=== PATIENT | female | born 2000 | race Caucasian/White ===

== ENCOUNTER 2019-03-01 10:49 | Observation (INO) | payer OTHER, SELFPAY ==
[2019-03-01] VITALS (10 sets, daily range): BP systolic 102–139; BP diastolic 62–86; PULSE 72–99; RESP 14–18; TEMP 36.4–37.6; O2SAT 97–100; BMI 24.9
--- NOTE | 2019-03-01 11:28 | CT_ITS ---
STUDY: CT ABDOMEN AND PELVIS WITH CONTRAST REASON FOR EXAM: Female, 18 years old. Left lower quadrant pain. RADIATION DOSAGE (If Supplied By Facility): CTDIvol = ( 12.18 ) mGy, DLP = ( 585.40 ) mGycm TECHNIQUE: Transaxial images were obtained from the dome of the diaphragm to the symphysis pubis without oral contrast. 100ml IV/Oral Isovue 300 was administered. Sagittal and coronal images were reconstructed. Individualized dose optimization techniques were used for this CT. COMPARISON: None. FINDINGS: The visualized lung bases are unremarkable. The visualized portions of the heart are within normal limits. Normal liver. Normal gallbladder and extrahepatic biliary system. Normal spleen. Normal pancreas. Normal bilateral adrenal glands. Normal right kidney. Normal left kidney. Normal visualized stomach. Normal small intestine. Normal colon. There is mild dilatation of the appendix as seen on coronal series 601 image 66 measuring approximately 8-9 mm with small 1 to 2 mm appendicolith as seen on coronal series 601 image 69 and sagittal series 602 image 58-60. No significant surrounding inflammatory stranding is present somewhat limited along the proximal course. Normal abdominal aorta. Normal inferior vena cava. Normal retroperitoneum. Normal urinary bladder. Normal visualized uterus. Normal abdominal wall. Normal osseous structures. CT/Abdomen/Pelvis WITH Contrast IMPRESSION: 1. There is noted dilatation of the appendix with small 1 to 2 mm nephrolith without significant surrounding inflammatory stranding with findings concerning for early appendicitis in the appropriate clinical setting. No large fluid collection or abscess. Otherwise no evidence of additional acute intra-abdominal process. Recommend general surgery consultation for further assessment and management. N.B. : The above information has been verbally conveyed by Joseph Thompson DO to Bambi Gutierrez MD, on 03/01/2019 13:27:35 (ET). Electronically Signed: Joseph Tohmpson DO at 13:28 EDT , Service support ,
[2019-03-01 11:48] LABS: Absolute Lymphocyte Count 0.74 X10^3/ul (0.83-4.51); Absolute Neutrophil Count 5.9 X10^3/uL (2.0-7.7); Basophil# 0.01 X10^3/uL; Basophil% 0.1 % (0-1); Eosinophil# 0.03 X10^3/uL; Eosinophils% 0.4 % (0-5); Hematocrit 40.4 % (37-47); Hemoglobin 13.7 g/dl (12.0-15.0); Lymphocyte # 0.74 X10^3/ul (4.0); Lymphocyte % 10.2 % (19-41); Mean Corp Hgb Conc 33.9 g/gl (32-36); Mean Corpuscular Hgb 29.8 pg (27.0-32.0); Monocyte% 8.3 % (0-10); Neutrophil # 5.85 X10^3/uL (2.7-7.7); Neutrophil % 80.9 % (47-70); Platelet Count 192 K/mm3 (150-450); RBC Distribution Width CV 13.4 % (11.6-14.6); RBC Distribution Width SD 43.2 fl (35.1-43.9); Red Blood Count 4.59 M/mm3 (4.2-5.4); White Blood Count 7.2 K/mm3 (4.4-11.0)
[2019-03-01 11:49] LABS: POSITIVE COUNT NO; POSITIVE DIFFERENTIAL NO; POSITIVE MORPHOLOGY NO
[2019-03-01 12:00] LABS: Anion Gap 10 (5-15); BUN 8 mg/dL (7-18); BUN/Creat Ratio 10.4 RATIO (10-20); Calcium,Total 8.6 mg/dL (8.5-10.1); Chloride 107 mmol/L (98-107); Creatinine, Serum 0.77 mg/dL (0.55-1.02); EST Glomerular Filtration Rate 100 mL/min (>60); Est Glom Filt Rate - Afr Amer 121 mL/min (>60); Estimated Creatinine Clearance 87.94 ml/min; Glucose 94 mg/dL (74-106); Internal QC Validated? YES +Cl - CLEAR BKGD; Potassium 3.6 mmol/L (3.5-5.1); Pregnancy, Serum, hCG Quali. NEGATIVE Negative; Sodium Level 142 mmol/L (136-145)
--- NOTE | 2019-03-01 12:15 | ED.RN ---
called pharmacy for toradol
[2019-03-01] MEDS: Ondansetron 4 MG/2 ML Vial IV ×2 (12:23→16:17)
[2019-03-01] MEDS: 0.9% Normal Saline 1,000 ML 150 ML IV (12:23)
--- NOTE | 2019-03-01 12:24 | ED.RN ---
urine obtained. pt on period
[2019-03-01 12:35] LABS: Mucous, Urine 0 SEEN /hpf (<or=2+); Squamous Epithelial Cells - UA 0 SEEN /hpf (5-10)
[2019-03-01 12:40] LABS: Color, Urine Amber (Yellow); Glucose, Dipstick Normal (Normal); Ketone-Dipstick 5 mg/dl (Negative); Leukocyte Esterase-Dipstick 100 /ul (Negative); Nitrite-Dipstick Negative (Negative); Occult Blood-Urine 250 /ul (Negative); Protein-Dipstick 30 mg/dl (Negative); Specific Gravity, Urine 1.005 (1.002-1.030); Urine Bilirubin Dipstick Negative (Negative); Urine Clarity Sl. Cloudy (Clear); Urine Urobilinogen Normal (Normal)
[2019-03-01 12:50] LABS: Bacteria 1+ /hpf (None Seen); Red Blood Cells-Urine 25-50 SEEN /hpf (0-5); White Blood Cells 0-5 SEEN /hpf (0-5)
[2019-03-01] MEDS: Ketorolac 15 MG/ML Vial IV (12:51)
--- NOTE | 2019-03-01 15:43 | PCM.HP.STD ---
Problem List (1) Abdominal pain Status: Acute History of Present Illness Date of Admission: 03/01/19 Chief Complaint: Left lower quadrant pain The patient is a 18 year old F who presents with fever, left lower quadrant abdominal pain, diarrhea and blood per rectum. Patient states her symptoms have been ongoing for approximately 1 year. Patient states she has abdominal bloating after eating any type of food. She notes urgency with stool and following a bowel movement she notes relief of the abdominal bloating. Patient notes her abdomen gurgles a lot. She notes she presented to the ED today due to having a fever last night, diarrhea with blood when she wiped after a bowel movement. However she notes she started her menstrual cycle yesterday. Patient also noted feeling nauseated and dizzy yesterday. Patient notes she had left lower quadrant pain which was new for her. She notes taking Advil which helped slightly. She also has been taking garlic and charcoal to assist with her GI symptoms. Patient notes she has been working closely with her family doctor to assist with her GI symptoms. Patient has tried Prilosec which did not help with her symptoms. She is no longer taking this medication. Patient is scheduled to see Dr. Hill on March 16. Patient denies previous surgeries. CT scan of the abdomen/pelvis which demonstrated dilatation of the appendix with small 1 to 2 mm nephrolith without significant surrounding inflammatory stranding with findings concerning for early appendicitis in the appropriate clinical setting. No large fluid collection or abscess. Otherwise no evidence of additional acute intra-abdominal process. Recommend general surgery consultation for further assessment and management. 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 Denies: Chills, Weight Change HEENT: Denies: Head Aches, Sinus Congestion, Sinus Drainage Cardiovascular: Denies: Chest Pain, Palpitations Respiratory: Denies: Cough, Shortness of breath at rest, Sputum production Gastrointestinal: Reports: Abdominal Pain, Diarrhea, Nausea Genitourinary: Reports: Frequency Musculoskeletal: Denies: Joint Pain, Joint Tenderness Skin: Denies: Rash, Wounds Neurological: Denies: Numbness, Tingling, Focal weakness Psychiatric: Denies: Anxiety, Depression, Homicidal Ideations, Suicidal Ideations Hematologic/ Lymphatic: Denies: Easy Bruising, Easy Bleeding VTE Information - Inpt Only VTE Present on Admission: No Patient Problems: Active and Suspected Problems Abdominal pain (Acute) - Physical Exam General: Alert, Oriented x3, Cooperative HEENT: Atraumatic, PERRLA, EOMI, Normocephalic Neck: Supple, No JVD, Negative Carotid Bruits Lungs: Clear to auscultation, Normal air movement Cardiovascular: Regular rate, No murmurs Abdomen: Bowel Sounds Present, Soft, Non Tender, Non-Distended Extremities: No edema, Capillary Refill Less than 3 Seconds Skin: No rashes, No breakdown Musculoskeletal: No Tenderness to Palpation of Joints or Extremities Neurological: Neuro grossly intact Psych/Mental Status: Normal Affect, Appropriate Vital Signs Temp Pulse Resp BP Pulse Ox 99.7 F H 89 16 117/74 99 03/01/19 10:50 03/01/19 14:54 03/01/19 14:54 03/01/19 14:54 03/01/19 14:54 Weight: 132 lb Body Mass Index (BMI) 24.9 Laboratory Tests Past 24 Hrs 03/01/19 03/01/19 03/01/19 11:41 11:41 11:41 WBC 7.2 RBC 4.59 Hgb 13.7 Hct 40.4 MCV 88.0 MCH 29.8 MCHC 33.9 RDW 13.4 RDW Differential 43.2 Plt Count 192 MPV 10.0 Immature Gran % (Auto) 0.100 Neut % (Auto) 80.9 H Lymph % (Auto) 10.2 L [place] % (Auto) 8.3 Eos % (Auto) 0.4 Baso % (Auto) 0.1 Absolute Neuts (auto) 5.9 Absolute Lymphs (auto) 0.74 L Total Counted Not Reportable Sodium 142 Potassium 3.6 Chloride 107 Carbon Dioxide 25.0 Anion Gap 10 BUN 8 Creatinine 0.77 Estim Creat Clear Calc 87.94 Est GFR (MDRD) Af Amer 121 Est GFR (MDRD) Non-Af 100 BUN/Creatinine Ratio 10.4 Glucose 94 Calcium 8.6 Serum , Qual NEGATIVE Urine Color Urine Clarity Urine pH Ur Specific [place] Urine Protein Urine Glucose (UA) Urine Ketones Urine Occult Blood Urine Nitrite Urine Bilirubin Urine Urobilinogen Ur Leukocyte Esterase Urine RBC Urine WBC Ur Squamous Epith Cells Urine Bacteria Urine Mucus 03/01/19 12:05 WBC RBC Hgb Hct MCV MCH MCHC RDW RDW Differential Plt Count MPV Immature Gran % (Auto) Neut % (Auto) Lymph % (Auto) [place] % (Auto) Eos % (Auto) Baso % (Auto) Absolute Neuts (auto) Absolute Lymphs (auto) Total Counted Sodium Potassium Chloride Carbon Dioxide Anion Gap BUN Creatinine Estim Creat Clear Calc Est GFR (MDRD) Af Amer Est GFR (MDRD) Non-Af BUN/Creatinine Ratio Glucose Calcium Serum , Qual Urine Color Geeta Urine Clarity Sl. Cloudy Urine pH 7.0 Ur Specific [place] 1.005 Urine Protein 30 H Urine Glucose (UA) Normal Urine Ketones 5 H Urine Occult Blood 250 H Urine Nitrite Negative Urine Bilirubin Negative Urine Urobilinogen Normal Ur Leukocyte Esterase 100 H Urine RBC 25-50 SEEN Urine WBC 0-5 SEEN Ur Squamous Epith Cells 0 SEEN Urine Bacteria 1+ Urine Mucus 0 SEEN Assessment/Plan All Active Problems Abdominal pain (Acute) I am seeing this patient in conjunction with Dr. Sepulveda. Impression: Left lower quadrant abdominal pain, diarrhea, low grade fever, nausea. Plan: Dr. Sepulveda will independently evaluate this patient. Dr. Sepulveda has independently evaluated this patient. He will plan to perform a laparoscopic appendectomy. Dr. Sepulveda explained the procedure details, risks and benefits to the patient. Thank you for allowing us to participate in this patient's care. Code Visit Office Visits / Consults: [id number] IP Consult L3
--- NOTE | 2019-03-01 15:50 | ED.VISSUMM ---
- ER Visit Summary Date of Service: 03/01/19 Chief Complaint: Abdominal pain History of Present Illness: The patient is a 18 F with intermittent abdominal pain for quite some time. She states the pain recurred again last evening. She reports subjective fever last night and had diarrhea with some blood. She believes the blood may be secondary to her starting her period as opposed to blood mixed with her stool. Physical Examination: Vital signs remarkable only for temperature 99.7. Patient sitting upright in bed no acute distress. She is nontoxic-appearing. Head and neck examination normal. Heart is regular rate and rhythm. Lung sounds clear. Abdomen is soft with mild left lower quadrant tenderness. No guarding or rebound. Test Results: CBC reveals normal white count with slight left shift. Chemistry studies normal. Urinalysis shows blood no sign of acute infection. Patency test negative. CT the abdomen and pelvis with contrast reveals dilatation of the appendix with small appendicolith but no significant surrounding inflammatory stranding. This is concerning for early appendicitis. Emergency Department Course and Treatment: Patient was initially given Toradol, Zofran, and IV fluids. Test results were discussed with patient and mother at bedside. Patient was discussed with Dr. Sepulveda who presented to the emergency room to evaluate the patient. He will take her for an appendectomy. Patient be given Zosyn. Treatment Plan: [] Disposition: Admit Impression: Appendicitis This note was generated with [employer] dictation software. It may contain incorrect words, spelling, and punctuation that were not noted in review of the chart prior to signing
[2019-03-01] MEDS: Morphine 2 MG/ML Syringe 4 MG IV (16:18)
--- NOTE | 2019-03-01 17:55 | PCM.OPRPT ---
Problem List (1) Acute appendicitis Status: Acute Qualifiers: Acute appendicitis type: with localized peritonitis Appendicitis gangrene presence: without gangrene Appendicitis perforation presence: without perforation Appendicitis abscess presence: without abscess Qualified Code(s): K35.30 - Acute appendicitis with localized peritonitis, without perforation or gangrene Report of Operation Date of Procedure: 03/01/19 Pre-Operative Diagnosis: Acute appendicitis Post-Operative Diagnosis: Same Surgery/Procedure Performed:: Laparoscopic appendectomy Type of Anesthesia:: General Anesthesiologist: Teri Jha Specimen's removed: Appendix Estimated Blood Loss (mL): <25cc Description of Procedure: Patient was brought into the operating room. Placed in the supine position. Under excellent general anesthetic the abdomen was sterilely prepped and draped in usual fashion. Local was injected infraumbilically. Curvilinear incision was made. Dissection was carried down to the fascia. The fascia was grasped with a Mary. The varies needle was placed inside the abdomen and the abdomen was insufflated to 15 torr. A 10/12 trocar was placed without difficulty. Patient was placed in the head down rotated to the left suprapubic #5 trocar was placed laterally a #5 trocar was placed patient was noted to have acute appendicitis. I took the mesoappendix down with the Enseal device and then transected the base the appendix with a 45 linear cutter. Placed a specimen specimen bag and delivered through the umbilical port without difficulty. Irrigated out the pelvis no pus was identified. It did look however that she had a ruptured ovarian cyst the ovaries themselves looked viable and irrigated out a small amount of blood.. I then ran the small bowel no Meckel's diverticulum was identified. I inspected the abdominal wall no signs of hernias were identified. I inspected the colon to look normal without signs of diverticulitis or inflammation. Inspected the suture line good hemostasis was achieved. Trochars were removed under direct visualization good hemostasis was noted. Fascia was closed with a figure stitch of 0 Vicryl. Skin incisions were closed with septic with stitches of 4-0 Monocryl. Steri-Strips were applied sterile dressings were applied and the patient tolerated the procedure well. - Admit VTE Documentation VTE Present on Admission: No VTE Mechan Device Prophylaxis: SCD's VTE Pharm Prophylaxis ordered?: No Reason prophylaxis not ordered:: Treatment Not Indicated
--- NOTE | 2019-03-01 18:05 | APP_PTH ---
PATIENT: MICHELINE PERALES LOC: [facility]3 U#:[id number] AGE/SX: 18/F ROOM: MS315 RE03/01/[address]: Dr. Tj Sepulveda MD : 2000 BED: 1 DIS: 03/02/2019 SPEC #: [id number] RECD: 03/02/19 07:57 STATUS: DESIREE RELupe #: [id number] MARCO: 03/01/19 18:[address]: Tj Sepulveda DEPT: SURGICAL PATHOLOGY RECD BY: Johana Johnson ENTERED: 03/02/19 10:07 SP TYPE: APPENDIX OTHR DR: Dr. Ryley Beck, DO Tissues: Appendix, NOS Procedures: Surgery Specimen Level III HEADER OPERATION: Laparoscopic appendectomy PRE-OP DIAGNOSIS: Acute appendicitis TISSUE SUBMITTED: Appendix MICROSCOPIC DIAGNOSIS Appendix, laparoscopic appendectomy: Early acute appendicitis with focally increased eosinophils and intraluminal acute inflammatory exudate. FA:felicitas 03/03/19 MICROSCOPIC DESCRIPTION Slides are reviewed. GROSS DESCRIPTION Received in fixative is one container labeled with the patient's name and designated appendix. The specimen consists of a pinkish-hsieh appendix measuring 9.8 cm in length and 0.7 cm in average diameter. The periappendiceal adipose tissue measures 5.4 x 2.5 x 0.3 cm. The serosal surface of the appendix is pinkish-hsieh and slightly congested. No exudate or perforation is grossly identified. Serial sectioning of the appendix reveals a pinpoint lumen. Forensic Document Examiner sections are submitted in three cassettes as follows: 1 - bisected tip, 2 & 3 - service representative sections of the proximal mid and distal portion of the appendix. / FA:felicitas 03/02/19 TC:2 CPT: 69937
[2019-03-01] MEDS: Bupivacaine Mpf 0.5% 30 ML VIAL (18:27)
[2019-03-01] MEDS: HYDROmorphone 1 MG/ML Syringe IV (23:03)
[2019-03-01] MEDS: Lactated Ringers 1,000 ML 75 ML IV (23:09)
[2019-03-02 03:15] VITALS: BP 108/58; PULSE 74; RESP 16; TEMP 36.6; O2SAT 98
--- NOTE | 2019-03-02 09:09 | DCINST_ITS ---
Discharge Diet: Light diet - advance as tolerated Discharge Activity: May Not Drive - for 3-5 days or while taking narcotic pain meds. May shower in (days): 1 Lifting Restrictions: 10 pounds Call your doctor if your incision/area has: Continuous Slow Oozing, Sudden Increased Bleeding, Increased Pain/ Swelling, Increased Redness, Foul Smelling Discharge Call your doctor if you observe: Fever of 101 or Higher Suture Line Care: Avoid Pulling/Pushing, Avoid Pinching/Bending Cleanse incision/area with: Soap & Water Additional Dressing/Incision Instructions:: Keep dressing clean and dry. Change or remove dressing in 2 days. Leave steri strips for 1 week. May protect with a gauze bandaid. Medications to take at Discharge Ibuprofen [Advil] 200 mg PO DAILY PRN PRN 03/01/19 Lactobacillus Acidophilus [Digestive Probiotic] 1 ea PO DAILY 03/01/19 Omeprazole Magnesium [Prilosec Otc] 20 mg PO DAILY 03/01/19 Allergies/Adverse Reactions: Allergies No Known Allergies Allergy (Verified 03/01/19 10:53) Primary Care Physician: Ryley Beck DO [Primary Care Provider] - Test Results: Test results from this visit will be discussed in further detail at your follow- up appointment, if applicable. Please Follow Up With: Bronwyn Mariee PA-C - [phone] When: 7 days Proposed Discharge Date: 03/02/19
--- NOTE | 2019-03-02 09:11 | PCM.PN.SRG ---
Patient Problems: Active and Suspected Problems Abdominal pain (Acute) Acute appendicitis (Acute) Subjective: Patient evaluated resting comfortably in bed. She notes incisional pain 4 out of 10. She denies nausea, vomiting, fever. - Physical Exam General: Alert, Oriented x3, Cooperative Abdomen: Soft, Distended, Tender - generalized, - - Incisions c/d/i. No erythema. Vital Signs Temp Pulse Resp BP Pulse Ox 97.8 F 74 16 108/58 L 98 03/02/19 03:15 03/02/19 03:15 03/02/19 03:15 03/02/19 03:15 03/02/19 03:15 Oxygen Delivery Method Room Air Weight: 132 lb Body Mass Index (BMI) 24.9 Intake and Output for Last 24 Hours 02/28/19 03/01/19 03/02/19 23:59 23:59 23:59 Intake Total 1500 / 2320 1434.6 / 1434.6 Output Total 1300 / 1300 Balance 1500 / 1920 134.6 / 134.6 Laboratory Tests Past 24 Hrs 03/01/19 03/01/19 03/01/19 11:41 11:41 11:41 WBC 7.2 RBC 4.59 Hgb 13.7 Hct 40.4 MCV 88.0 MCH 29.8 MCHC 33.9 RDW 13.4 RDW Differential 43.2 Plt Count 192 MPV 10.0 Immature Gran % (Auto) 0.100 Neut % (Auto) 80.9 H Lymph % (Auto) 10.2 L [place] % (Auto) 8.3 Eos % (Auto) 0.4 Baso % (Auto) 0.1 Absolute Neuts (auto) 5.9 Absolute Lymphs (auto) 0.74 L Total Counted Not Reportable Sodium 142 Potassium 3.6 Chloride 107 Carbon Dioxide 25.0 Anion Gap 10 BUN 8 Creatinine 0.77 Estim Creat Clear Calc 87.94 Est GFR (MDRD) Af Amer 121 Est GFR (MDRD) Non-Af 100 BUN/Creatinine Ratio 10.4 Glucose 94 Calcium 8.6 Serum , Qual NEGATIVE Urine Color Urine Clarity Urine pH Ur Specific [place] Urine Protein Urine Glucose (UA) Urine Ketones Urine Occult Blood Urine Nitrite Urine Bilirubin Urine Urobilinogen Ur Leukocyte Esterase Urine RBC Urine WBC Ur Squamous Epith Cells Urine Bacteria Urine Mucus 03/01/19 12:05 WBC RBC Hgb Hct MCV MCH MCHC RDW RDW Differential Plt Count MPV Immature Gran % (Auto) Neut % (Auto) Lymph % (Auto) [place] % (Auto) Eos % (Auto) Baso % (Auto) Absolute Neuts (auto) Absolute Lymphs (auto) Total Counted Sodium Potassium Chloride Carbon Dioxide Anion Gap BUN Creatinine Estim Creat Clear Calc Est GFR (MDRD) Af Amer Est GFR (MDRD) Non-Af BUN/Creatinine Ratio Glucose Calcium Serum , Qual Urine Color Geeta Urine Clarity Sl. Cloudy Urine pH 7.0 Ur Specific [place] 1.005 Urine Protein 30 H Urine Glucose (UA) Normal Urine Ketones 5 H Urine Occult Blood 250 H Urine Nitrite Negative Urine Bilirubin Negative Urine Urobilinogen Normal Ur Leukocyte Esterase 100 H Urine RBC 25-50 SEEN Urine WBC 0-5 SEEN Ur Squamous Epith Cells 0 SEEN Urine Bacteria 1+ Urine Mucus 0 SEEN Medical Necessity - Tobacco Use Smoking Status: Never smoker Assessment/Plan All Active Problems Abdominal pain (Acute) Acute appendicitis (Acute) I am seeing this patient in conjunction with Dr. Sepulveda. S/p laparoscopic appendectomy Patient progressing well Hopeful discharge later today Code Visit Inpatient E&M: 51130 Subs Hosp L1 - No charge/post-op
[2019-03-02 09:12] VITALS: BP 111/69; PULSE 67; RESP 18; TEMP 37.2; O2SAT 100
[2019-03-02] MEDS: oxyCODONE 5 MG Tablet PO (11:48)
[2019-03-02 14:00] VITALS: BP 113/76; PULSE 76; RESP 18; TEMP 37.2; O2SAT 96
[2019-03-02 15:19] VITALS: BP 113/76; PULSE 76; RESP 18; TEMP 37.2; O2SAT 96
== END 2019-03-02 15:19 | disposition home or self-care (01) ==
LOC: ED 11:44 → SDC 15:15 → AC 15:16 → MS3 18:24 → SDC 18:24
PROVIDERS: Admitting Provider Surgery; Emergency Provider Emergency Medicine; Family Provider Family Medicine; PCP Family Medicine; Referring Provider Surgery; Visit Provider Surgery
PROC: 0DTJ4ZZ Resection of Appendix, Percutaneous Endoscopic Approach (ICD-10-PCS; CPT 44970; principal; 2019-03-01 17:45)
DX: K35.80 Unspecified acute appendicitis (principal)
CPT/HCPCS: 44970; 74177; 80048; 81001; 84703; 85025; 88304; 96365; 96366; 96375; 96376; 99218; 99283; J7030; J7120; Q9967; A4216; C1760; G0378; J2405

== ENCOUNTER → 2021-05-15 14:10 | Outpatient (CLI) | payer OTHER, SELFPAY ==
[2021-05-15 14:36] LABS: Absolute Lymphocyte Count 1.96 X10^3/uL (0.83-4.51); Absolute Neutrophil Count 5.9 X10^3/uL (2.0-7.7); Basophil# 0.03 X10^3/uL; Basophil% 0.3 % (0-1); Eosinophil# 0.07 X10^3/uL; Eosinophils% 0.8 % (0-5); Hematocrit 38.2 % (37-47); Hemoglobin 12.9 g/dL (12.0-15.0); Lymphocyte # 1.96 X10^3/ul (0.83-4.51); Lymphocyte % 22.3 % (19-41); Mean Corp Hgb Conc 33.8 g/dL (32-36); Mean Corpuscular Hgb 29.8 pg (27.0-32.0); Mean Corpuscular Volume 88.2 fL (81-99); Mean Platelet Vol. 9.9 fl (6.2-12.0); Monocyte# 0.76 X10^3/uL; Monocyte% 8.6 % (0-10); NRBC Flagged by Analyzer 0 % (0-5); Neutrophil # 5.93 X10^3/uL (2.7-7.7); Neutrophil % 67.5 % (47-70); Platelet Count 246 K/mm3 (150-450); RBC Distribution Width CV 13.1 % (11.6-14.6); RBC Distribution Width SD 42.5 fl (35.1-43.9); Red Blood Count 4.33 M/mm3 (4.2-5.4); White Blood Count 8.8 K/mm3 (4.4-11.0)
[2021-05-15 15:13] LABS: T4 Free Direct 0.85 ng/dL (0.76-1.46); Thyroid Stim Hormone (TSH) 3.66 uIU/mL (0.358-3.74)
[2021-05-15 15:14] LABS: Rubella IgG Reactive (Nonreactive)
[2021-05-24 21:08] LABS: HPV Reflexed? NOT INDICATED
== END ==
PROVIDERS: PCP Family Medicine; Referring Provider Obstetrics & Gynecology; Visit Provider Obstetrics & Gynecology
DX: Z34.90 Encounter for supervision of normal pregnancy, unspecified, unspecified trimester (principal); E01.0 Iodine-deficiency related diffuse (endemic) goiter
CPT/HCPCS: 36415; 84439; 84443; 85025; 86762; 86850; 86900; 86901; 87086; 88175; G0145

== ENCOUNTER → 2021-06-14 12:04 | Outpatient (CLI) | payer SELFPAY, OTHER ==
--- NOTE | 2021-06-14 12:06 | US_ITS ---
STUDY: THYROID ULTRASOUND REASON FOR EXAM: Female, 21 years old. thyromegaly TECHNIQUE: Ultrasound evaluation of the thyroid was performed with real-time and static kim-scale imaging. COMPARISON: None. FINDINGS: RIGHT LOBE: The right lobe of the thyroid gland measures 4.9 x 1.6 x 1.6 cm. There is a heterogeneous echotexture. There are no demonstrated solid, cystic or complex lesions. LEFT LOBE: The left lobe of the thyroid gland measures 4.9 x 1.6 x 1.5 cm. There is a heterogeneous echotexture. There are no demonstrated solid, cystic or complex lesions. ISTHMUS: The isthmus measures 2 mm thick. . The regional lymph nodes are normal. US/Thyroid IMPRESSION: Thyroiditis but no dominant nodule. Electronically Signed: Konstantin Caceres MD at 13:00 EDT Tel , Service support ,
== END ==
PROVIDERS: PCP Family Medicine; Referring Provider Obstetrics & Gynecology; Visit Provider Obstetrics & Gynecology
DX: E01.0 Iodine-deficiency related diffuse (endemic) goiter (principal)
CPT/HCPCS: 76536

== ENCOUNTER → 2021-06-28 13:41 | Outpatient (CLI) | payer OTHER, SELFPAY ==
[2021-06-28 15:38] LABS: Thyroid Stim Hormone (TSH) 3.91 uIU/mL (0.358-3.74)
[2021-06-30 13:33] LABS: Thyroid Peroxidase AB 32 IU/mL (0-34)
== END ==
PROVIDERS: PCP Family Medicine; Referring Provider Internal Medicine Endocrinology, Diabetes & Metabolism; Visit Provider Internal Medicine Endocrinology, Diabetes & Metabolism
DX: E01.0 Iodine-deficiency related diffuse (endemic) goiter (principal)
CPT/HCPCS: 36415; 84443; 86376

== ENCOUNTER → 2021-08-09 09:48 | Outpatient (CLI) | payer SELFPAY, OTHER ==
--- NOTE | 2021-08-09 10:00 | US_ITS ---
HISTORY: anatomy. TECHNIQUE: Transabdominal and transvaginal pelvic ultrasound was performed. # of images incl. paperwork: 140. COMPARISON: None FINDINGS: INTRAUTERINE GESTATION(s): Single. PRESENTATION: Cephalic. PLACENTA: Anterior, grade 0. No placenta previa. CERVIX: Closed .4.6 cm in length. AMNIOTIC FLUID: Maximum vertical pocket 3.8 cm. HEART MOTION: 146 bpm. BIPARIETAL DIAMETER: 5 cm, 21 weeks 0 days. HEAD CIRCUMFERENCE: 18.4 cm, 20 weeks 5 days. ABDOMINAL CIRCUMFERENCE: 15.8 cm, 20 weeks 6 days. FEMUR LENGTH: 3.3 cm, 20 weeks 1 day. ESTIMATED WEIGHT: 373 g, corresponding to 38th percentile. ESTIMATED GESTATIONAL AGE: 20 weeks 6 days. ESTIMATED DUE DATE (ADONIS): 12/21/2021. ANATOMIC SURVEY:Anterior and posterior cranial fossa, spine, facial profile, nose/lips, 4 chambered heart, bilateral upper and lower extremities, three-vessel cord insertion, stomach, kidneys, and bladder visualized. US/OB Anatomy Scan IMPRESSION: Single living intrauterine with an estimated gestational age of 20 weeks 6 days. Unremarkable anatomic survey. at 1013 Reported and signed by: Sury Turcios MD Electronically Signed: Sury Turcios MD at 10:12 EST Tel , Service support ,
[2021-08-09 10:33] LABS: T4 Free Direct 1.06 ng/dL (0.76-1.46); Thyroid Stim Hormone (TSH) 1.26 uIU/mL (0.358-3.74)
== END ==
PROVIDERS: Internal Medicine Endocrinology, Diabetes & Metabolism; PCP Family Medicine; Referring Provider Obstetrics & Gynecology; Visit Provider Obstetrics & Gynecology
DX: O99.280 Endocrine, nutritional and metabolic diseases complicating pregnancy, unspecified trimester (principal); E03.9 Hypothyroidism, unspecified; Z3A.00 Weeks of gestation of pregnancy not specified
CPT/HCPCS: 36415; 76805; 76817; 84439; 84443

== ENCOUNTER 2021-10-02 08:38 | Outpatient (CLI) | payer OTHER, SELFPAY ==
[2021-10-02 08:59] LABS: Absolute Lymphocyte Count 2.05 X10^3/uL (0.83-4.51); Absolute Neutrophil Count 8.1 X10^3/uL (2.0-7.7); Basophil# 0.03 X10^3/uL; Basophil% 0.3 % (0-1); Eosinophil# 0.14 X10^3/uL; Eosinophils% 1.3 % (0-5); Hematocrit 35.7 % (37-47); Hemoglobin 12.3 g/dL (12.0-15.0); Lymphocyte # 2.05 X10^3/ul (0.83-4.51); Lymphocyte % 18.5 % (19-41); Mean Corp Hgb Conc 34.5 g/dL (32-36); Mean Corpuscular Volume 89.9 fL (81-99); Monocyte# 0.73 X10^3/uL; Monocyte% 6.6 % (0-10); NRBC Flagged by Analyzer 0 % (0-5); Neutrophil # 8.05 X10^3/uL (2.7-7.7); Neutrophil % 72.8 % (47-70); Platelet Count 208 K/mm3 (150-450); RBC Distribution Width CV 13.6 % (11.6-14.6); RBC Distribution Width SD 44.7 fl (35.1-43.9); Red Blood Count 3.97 M/mm3 (4.2-5.4); White Blood Count 11.1 K/mm3 (4.4-11.0)
[2021-10-02 09:18] LABS: Glucose Challenge Gest 1H 50g 107 mg/dL (70-140)
[2021-10-02 10:29] LABS: Thyroid Stim Hormone (TSH) 0.08 uIU/mL (0.358-3.74)
== END 2021-10-02 23:59 | disposition short-term general hospital (02) ==
LOC: PAVLAB 08:40
PROVIDERS: Nurse Practitioner Women's Health; PCP Family Medicine; Referring Provider Obstetrics & Gynecology; Visit Provider Obstetrics & Gynecology
DX: O99.280 Endocrine, nutritional and metabolic diseases complicating pregnancy, unspecified trimester (principal); E03.9 Hypothyroidism, unspecified; Z3A.00 Weeks of gestation of pregnancy not specified
CPT/HCPCS: 36415; 82950; 84439; 84443; 85025

== ENCOUNTER 2021-11-01 09:39 | Outpatient (CLI) | payer OTHER, SELFPAY ==
[2021-11-01 10:35] LABS: T4 Free Direct 1.39 ng/dL (0.76-1.46); Thyroid Stim Hormone (TSH) < 0.01 uIU/mL (0.358-3.74)
== END 2021-11-01 23:59 | disposition home or self-care (01) ==
LOC: PAVLAB 09:40
PROVIDERS: PCP Family Medicine; Referring Provider Internal Medicine Endocrinology, Diabetes & Metabolism; Visit Provider Internal Medicine Endocrinology, Diabetes & Metabolism
DX: O99.282 Endocrine, nutritional and metabolic diseases complicating pregnancy, second trimester (principal); E03.9 Hypothyroidism, unspecified; Z3A.00 Weeks of gestation of pregnancy not specified
CPT/HCPCS: 36415; 84439; 84443

== ENCOUNTER 2021-11-29 07:47 | Outpatient (CLI) | payer OTHER, SELFPAY | END 2021-11-29 23:59 | disposition home or self-care (01) | LOC: LABSPEC 12-02 07:48 | PROVIDERS: PCP Family Medicine; Visit Provider Obstetrics & Gynecology | DX: Z34.93 Encounter for supervision of normal pregnancy, unspecified, third trimester (principal) | CPT/HCPCS: 87081 ==

== ENCOUNTER 2021-12-17 12:55 | Inpatient (IN) | payer SELFPAY, OTHER ==
[2021-12-17] VITALS (46 sets, daily range): BP systolic 87–142; BP diastolic 50–85; PULSE 78–116; TEMP 36.3–37.4; O2SAT 92–100; BMI 34.0
--- NOTE | 2021-12-17 12:51 | HP.PCM.OB_ITS ---
HPI - General HPI Narrative MICHELINE PERALES, is a 21 y/o @ 39 weeks 3 days who presents to labor and delivery for rupture of membranes that occurred at 10 am today. She plans for epidural and is GBS negative Maternal Data Information ADONIS Calculator Estimated Delivery Date Method Current WG Current Estimate 12/21/21 Ultrasound #1 39w 3d Other Estimates 12/14/21 LMP (Certain) 40w 3d PFSH PFSH Medical History Abdominal pain Acute appendicitis Hypothyroidism affecting No significant medical problems Home Medications multivitamin no.47-iron fum 27 mg-folate no.1 1 mg-dha 300 mg capsule cap PO 05/14/21 [History Last Taken Unknown] cholecalciferol (vitamin D3) 125 mcg (5,000 unit) tablet 125 mcg PO DAILY 06/28/21 [History Last Taken Unknown] endovan PO 06/28/21 [History Last Taken Unknown] folic acid 400 mcg tablet 0.4 mg PO DAILY 06/28/21 [History Last Taken Unknown] nijxa red PO 06/28/21 [History Last Taken Unknown] levothyroxine 75 mcg tablet 75 mcg PO DAILY #30 tab 07/01/21 [Rx Last Taken Unknown] Allergy/AdvReac Type Severity Reaction Status Date / Time No Known Allergies Allergy Verified 11/15/21 09:45 Surgical History History of laparoscopic appendectomy (~02/2019) Social History adopted: No household members: spouse housing: house current occupational status: unemployed Smoking Status: Never smoker second hand exposure: No alcohol intake: never substance use type: does not use seatbelt use: always do you feel safe at home: Yes additional social history: Subhash- [employer] History 1 Elective abortions Hx Para Spontaneous abortions Hx # Term Pregnancies Ectopic pregnancies Hx # Pregnancies Multiple births # of living children Visit Details Expected Delivery Route/Plan Labor Preferences- CB/BF classes: no labor support person: Subhash labor intervention preferences: [] pain management options preferred: epidural cut cord/dad catch: maybe : yes PP control planned: discussed discussed possible routes of delivery and associated risks: [] special requests: [] Plans Covid status: counseled regarding risk of covid in vs vaccination and declined vaccination Flu vaccine: declined Tdap vaccine: declined Rhogam: na LARC form signed: yes movement and labor precautions reviewed. Problem list reviewed and updated with the most current plan of care details and appropriate orders placed. Relevant counseling for the gestational age provided. Continue routine care and follow up unless otherwise noted in visit notes/problem list details OB Flowsheet Initial Weight: 160 lb Date -?-?-?-?-?-?-?-?-?-?--?-?- EGA Weight BP Urine Prot -?-?-?-?-?-?-?-?-?-?-?-?- Glucose FHR FuHt Pres Dilation -?-?-?-?-?-?-?-?-?-?-?-?- Effaced St Visit Note 05/15/21 -?-?-?-?-?-?-?-?-?-?-?-?- 8w 4d 160 lb (+0 oz) 132/86 -?-?-?-?-?-?-?-?-?-?-?-?- 184 -?-?-?-?-?-?-?-?-?-?-?-?- SM- no vb crmapi ng CRL 1.75 cm not cons with LMP 06/14/21 -?-?-?-?-?-?-?-?-?-?-?-?- 12w 6d 159 lb 6 oz (-10 oz) 102/82 Negative -?-?-?-?-?-?-?-?-?-?-?-?- Negative 150 -?-?-?-?-?-?-?-?-?-?-?-?- SM no vb crampin g some nausea 07/11/21 -?-?-?-?-?-?-?-?-?-?-?-?- 16w 5d 160 lb (+0 oz) 118/68 Negative -?-?-?-?-?-?-?-?-?-?-?-?- Negative 166 -?-?-?-?-?-?-?-?-?-?-?-?- -No Vb, LOF. N ausea improved. Anatomy US scheduled 08/09/21 -?-?-?-?-?-?-?-?-?-?-?-?- 20w 6d 162 lb (+2 lb) 120/80 Negative -?-?-?-?-?-?-?-?-?-?-?-?- Negative 157 -?-?-?-?-?-?-?-?-?-?-?-?- JV- anatomy scan today. has c/o some abdominal pains after eating. recommend smaller more frequent meals. 09/03/21 -?-?-?-?-?-?-?-?-?-?-?-?- 24w 3d 166 lb (+6 lb) 116/70 Negative -?-?-?-?-?-?-?-?-?-?--?-?- Negative 150 24 -?-?-?-?-?-?-?-?-?-?-?-?- SM- no vb lof lo f good fm no regular ctx 10/02/21 -?-?-?-?-?-?-?-?-?-?-?-?- 28w 4d 171 lb 6 oz (+11 lb 6 oz) 116/64 Negative -?-?-?-?-?-?-?-?-?-?-?-?- Negative 148 28 -?-?-?-?-?-?-?-?-?-?-?-?- : No VB, LOF. No CTX. 28 wk labs, TSH, T4,larc. Considering Tdap. 10/18/21 -?-?-?-?-?-?-?-?-?-?-?-?- 30w 6d 174 lb 2 oz (+14 lb 2 oz) 110/70 Negative -?-?-?-?-?-?-?-?-?-?-?-?- Negative 147 31 -?-?-?-?-?-?-?-?-?-?-?-?- JV- no lof, vagi nal bleeding, or dec fm. next TSH is in 4 weeks. taking meds every day but thursday. 11/01/21 -?-?-?-?-?-?-?-?-?-?-?-?- 32w 6d 175 lb (+15 lb) 120/76 Negative -?-?-?-?-?-?-?-?-?-?-?-?- Negative 160 33 -?-?-?-?-?-?-?-?-?-?-?-?- SM- no vb lof go od fm no regular ctx 11/15/21 -?-?-?-?-?-?-?-?-?-?-?-?- 34w 6d 176 lb 6 oz (+16 lb 6 oz) Negative -?-?-?-?-?-?-?-?-?-?-?-?- Negative 162 35 Cephalic -?-?-?-?-?-?-?-?-?-?-?-?- JV- no lof, vagi nal bleeding, or dec fm. no complaints. larc form signed 11/29/21 -?-?-?-?-?-?-?-?-?-?-?-?- 36w 6d 181 lb (+21 lb) 120/78 Negative -?-?-?-?-?-?-?-?-?-?-?-?- Negative 145 36 Cephalic 0 -?-?-?-?-?-?-?-?-?-?-?-?- SM- no vb lof go od fm no regular ctx gbs today 12/06/21 -?-?-?-?-?-?-?-?-?-?-?-?- 37w 6d 182 lb (+22 lb) 118/80 Negative -?-?-?-?-?-?-?-?-?-?-?-?- Negative 135 37 Cephalic 1 -?-?-?-?-?-?-?-?-?-?-?-?- 40 -2 SM- no vb lof good fm no reuglar ctx 12/13/21 -?-?-?-?-?-?-?-?-?-?-?-?- 38w 6d 184 lb (+24 lb) 110/70 Negative -?-?-?-?-?-?-?-?-?-?-?-?- Negative 135 39 Cephalic 2 -?-?-?-?-?-?-?-?-?-?-?-?- 40 -2 SM- no vb lof good fm oregular ctx 12/17/21 -?-?-?-?-?-?-?-?-?-?-?-?- 39w 3d 123/81 -?-?-?-?-?--?-?-?-?-?-?-?- -?-?-?-?-?-?-?-?-?-?-?-?- ROS Constitutional Constitutional: Denies change in weight, fatigue, fever(s), headache(s), poor appetite or weakness Eyes Eyes: Denies blurry vision, change in vision, seeing flashes or spots in vision ENT HEENT: Denies dizziness, headache(s), loss taste/smell or sore throat Cardiovascular Cardiovascular: Denies chest pain, dizziness, dyspnea, irregular heart rhythm, leg edema, palpitations, rapid heart rate or vomiting Respiratory/Chest Respiratory/Chest: Denies chest tightness, cough, dyspnea or breast pain Gastrointestinal Gastrointestinal: Denies abdominal pain, anorexia, constipation, cramping, diarrhea, hemorrhoids, vomiting or weight changes Genitourinary Genitourinary: Denies dysuria, flank pain, genital lesions, genital pain, urinary frequency or urinary urgency Musculoskeletal Musculoskeletal: Denies back pain, difficulty walking, joint pain, limited range of motion, muscle cramps or numbness Integumentary Integumentary: Denies lesions or unusual bruising Neurologic Neurologic: Denies abnormal movements, abnormal speech, dizziness, numbness, seizure-like activity or syncope Psychiatric Psychiatric: Denies anxiety, behavioral changes, change in appetite, change in libido, cognitive impairment, confusion, depression, difficulty concentrating, hallucinations or suicidal thoughts Endocrine Endocrinology: Denies excessive sweating, polydipsia or polyuria Hematologic/Lymphatic Hematologic/Lymphatic: Denies easy bleeding, easy bruising or lymphadenopathy Allergic/Immunologic Allergic/Immunologic: Denies itchy eyes, lip swelling, seasonal rhinorrhea, rhinitis, throat swelling, tongue swelling, eczemia, wheezing or asthma Vital Signs Vital Signs Vital Signs: 12/17/21 12:29 Pulse Rate 105 H Blood Pressure 123/81 H BP Systolic 123 BP Diastolic 81 Physical Exam Const alert, oriented x3, no apparent distress and healthy appearing General Appearance: cooperative; Negative for anxious HEENT normocephalic Face and Sinus: normal facial exam Eyes EOMs intact bilaterally and no scleral icterus General Eye: normal appearance of both eyes Neck full ROM and supple Lymph Lymphatic: no lymphadenopathy noted Chest Chest: abnormal inspection of the chest Resp normal respiratory effort Effort and Inspection: able to speak in complete sentences Cardio regular rate GI soft to palpation and non-tender Inspection: gravid Palpation: soft; Negative for tender external exam normal Amniotic Fluid: other grossly ruptured cx: cx's started just recently and are sporadic. fht category 1 with exception of one late decel. baseline 140's, moderate variability Back/Spine no CVA tenderness Extremity normal to inspection, full ROM and no clubbing, cyanosis or edema General Extremity: Negative for calf tenderness or edema Skin Lesions: no lesions Rashes: no rashes Psych mental status grossly normal Labs Labs Labs: Blood Type O POSITIVE Antibody Screen NEGATIVE Hct 35.7 % (37-47) L Hgb 12.3 g/dL (12.0-15.0) Obstetrics US Rubella IgG Antibody Reactive (Nonreactive) Glucose 1 Hr 50 gm 107 mg/dL (70-140) Assessment & Plan (1) Hypothyroidism affecting : QUALIFIERS: Trimester: second trimester Qualified Code(s): O99.282 - Endocrine, nutritional and metabolic diseases complicating , second trimester; E03.9 - Hypothyroidism, unspecified COMMENT: Following kyle Howard (2) Supervision of normal : QUALIFIERS: Normal : normal first Trimester: second trimester Qualified Code(s): Z34.02 - Encounter for supervision of normal first , second trimester COMMENT: PRR (SP labs) ADONIS: 12/21/21 boy Spouse: Subhash GBS negative (3) : QUALIFIERS: Weeks of gestation: 38 weeks Qualified Code(s): Z3A.38 - 38 weeks gestation of COMMENT: declines carrier, genetic and NTD screening. dec std testing- plan RPR, HepC, HIV, GCC, Tox screen at delivery. NL anatomy PLAN: Patient presents SROM, plan expectant management for , pitocin/AROM PRN if needed. Pain management: plans epidural. GBS negative. Management of any complications: none I have reviewed the [facility] and made any clinically relevant updates.
--- NOTE | 2021-12-17 13:23 | OP.PCM_ITS ---
Report of Operation Date of Procedure: 12/17/21 Pre-Operative Diagnosis: desires permanent sterilization Post-Operative Diagnosis: desires permanent sterilization Description of Surgical Findings:: normal uterus, fallopian tubes, cervix and ovariese Surgeon: Robert Lester intelligence senior sergeant: Erum Stark Type of Anesthesia: General Anesthesiologist: Jose Yeh Specimen's removed: bilateral fallopian tubes Estimated Blood Loss (mL): 5cc Fluids Replaced: 800cc Description of Procedure: Patient was taken in the operating room and was placed under general anesthesia was prepped and draped in normal sterile fashion in the dorsal lithotomy position. Bladder was drained of clear urine and SCDs were on preoperatively. Uterus was sounded and a uterine manipulator was placed after dilating. Attention was then paid to the abdominal portion of the procedure. A 5 mm ioncision was made with an 11 blade after 0.25% marcaine was injected. A 5 mm optical trocar was placed under direct visualization and the abdomen was filled with C02. A left lower quadrant 5 mm port and a 1 mm minilap suprapubically were placed under direct visualization. Uterus was well visualized and bilateral fallopian tubes identified and bilateral tubes were elevated and transecting across the mesosalpinx and the attachment to the uterine corpus bilaterally the tubes were removed without complication. Excellent hemostasis was noted. Fallopian tubes were removed through the lower port sites without complication. Liver and upper abdomen were visualized notably within normal limits and no other gross abnormalities were seen in the abdomen. All in struments removed from the abdomen after gas was desufflated. Port sites were closed with 3-0 Monocryl Steri's and op sites were applied. All instruments removed from the vagina and patient was awoken and taken recovery in stable condition. Complications none Admit VTE Documentation VTE Present on Admission: Yes VTE Mechan Device Prophylaxis: SCD's VTE Pharm Prophylaxis ordered?: No Reason prophylaxis not ordered:: Treatment Not Indicated Multi Select Codes Urinary/Genital Urinary/Genital CPT Codes: 08859 Laproscopic BS/O (bilateral salpingectomy for sterilization )
[2021-12-17] MEDS: Lactated Ringers 1,000 ML 50 ML IV (14:45)
[2021-12-17] MEDS: Oxytocin 30 units/NS 500 ml 30 UNITS/500 ML IV.SOLN IV (14:51)
[2021-12-17 15:03] LABS: Bacteria 0 SEEN /hpf (None Seen); Mucous, Urine 0 SEEN /hpf (<or=2+); Red Blood Cells-Urine 0 SEEN /hpf (0-5)
[2021-12-17 15:10] LABS: Absolute Lymphocyte Count 2.13 X10^3/uL (0.83-4.51); Absolute Neutrophil Count 9.7 X10^3/uL (2.0-7.7); Basophil# 0.01 X10^3/uL; Basophil% 0.1 % (0-1); Eosinophil# 0.05 X10^3/uL; Eosinophils% 0.4 % (0-5); Hematocrit 36.5 % (37-47); Hemoglobin 12.4 g/dL (12.0-15.0); Lymphocyte # 2.13 X10^3/ul (0.83-4.51); Lymphocyte % 16.9 % (19-41); Mean Corpuscular Hgb 30.2 pg (27.0-32.0); Mean Corpuscular Volume 88.8 fL (81-99); Mean Platelet Vol. 11.4 fl (6.2-12.0); Monocyte# 0.65 X10^3/uL; Monocyte% 5.2 % (0-10); NRBC Flagged by Analyzer 0 % (0-5); Neutrophil # 9.68 X10^3/uL (2.7-7.7); Neutrophil % 76.8 % (47-70); Platelet Count 237 K/mm3 (150-450); RBC Distribution Width CV 13.8 % (11.6-14.6); Red Blood Count 4.11 M/mm3 (4.2-5.4); White Blood Count 12.6 K/mm3 (4.4-11.0)
[2021-12-17 15:40] LABS: Color, Urine Yellow (Yellow); Glucose, Dipstick Normal (Normal); Ketone-Dipstick Negative (Negative); Leukocyte Esterase-Dipstick Negative /ul (Negative); Nitrite-Dipstick Negative (Negative); Occult Blood-Urine Negative /ul (Negative); Protein-Dipstick Negative (Negative); Specific Gravity, Urine 1.015 (1.002-1.030); Urine Bilirubin Dipstick Negative (Negative); Urine Clarity Clear (Clear); Urine Urobilinogen Normal (Normal)
--- NOTE | 2021-12-17 15:45 | PCM.PN.BLA ---
Progress Note pt states that she is starting to feel more uncomfortable with contractions current tracing: FHT: 140's Moderate variability reactive no decelerations category I tracing [address]: q3-5 min Contractions cx: unchanged 2-/-2 posterior reviewed tracing abnormalities since last note: improved A/P: SROM, primip, 39 weeks -continue pitocin, currently still at 2 mu/min, nurse to increase now. - pain medication as needed
[2021-12-17 15:49] LABS: Squamous Epithelial Cells - UA 0-5 SEEN /hpf (5-10)
[2021-12-17 15:50] LABS: Amorphous Sediment 1+
[2021-12-17 15:53] LABS: White Blood Cells 0-5 SEEN /hpf (0-5)
[2021-12-17 15:55] LABS: Transitional Epithelial - Ur 0-5 SEEN /hpf (0-5)
[2021-12-17 16:03] LABS: Amphetamine Urine VISTA NEGATIVE (<1000 ng/mL); Barbiturate Urine VISTA NEGATIVE (< 200 ng/mL); Benzodiazepine Urine VISTA NEGATIVE (< 200 ng/mL); Cocaine Urine VISTA NEGATIVE (< 300 ng/mL); Ecstacy Urine VISTA NEGATIVE (< 500 ng/mL); Methadone Urine VISTA NEGATIVE (< 300 ng/mL); PCP Urine VISTA NEGATIVE (< 25 ng/mL); THC Urine VISTA NEGATIVE (< 50 ng/mL); Vista UDS pH Range 7
[2021-12-17] MEDS: Lactated Ringers 500 ML 999 ML IV ×2 (16:25→20:51)
[2021-12-17] MEDS: fentaNYL-bupivacaine (epidural) 100 ML BAG EPIDURAL ×2 (16:58→20:46)
[2021-12-17 19:06] LABS: Chlamydia Trachomatis by PCR Negative (Negative); Neisserai gonorrhoeae by PCR Negative (Negative); Probe Check PASS; Sample Adequacy Control PASS; Specimen Processing Control PASS
[2021-12-17 20:05] LABS: HIV - WCH Non-Reactive (Nonreactive); Syphilis Antibodies Non-reactive
[2021-12-17] MEDS: Lactated Ringers 1,000 ML 200 ML IV (20:26)
[2021-12-17] MEDS: Ondansetron 4 MG/2 ML Vial IV (20:46)
[2021-12-17] MEDS: 0.9% Saline Lock 10 ML Syringe IV (20:46)
[2021-12-17 21:39] LABS: Hepatitis B Surface Antigen Non-Reactive (Nonreactive); Hepatitis C Antibody Non-Reactive (Nonreactive)
[2021-12-17] MEDS: Oxytocin 30 units/NS 500 ml 30 UNITS/500 ML IV.SOLN 334 UNITS IV (23:14)
--- NOTE | 2021-12-17 23:24 | OP.PCM_ITS ---
Maternal Data Information ADONIS Calculator Estimated Delivery Date Method Current WG Current Estimate 12/21/21 Ultrasound #1 39w 3d Other Estimates 12/14/21 LMP (Certain) 40w 3d Vaginal Delivery Maternal Presentation Maternal Presentation: Spontaneous Rupture of Membranes Type of Induction: Pitocin Operative Information Date of Procedure: 12/17/21 Pre-Operative Diagnosis: 39 weeks with SROM and early labor Post-Operative Diagnosis: 39 weeks with SROM and early labor Surgery / Procedure Performed: Spontaneous Vaginal Delivery Type of Anesthesia: Epidural Estimated Blood Loss: 50cc Time of Delivery: 23:11 Findings Description of Procedure: Patient began pushing and delivered the head in the DENISE presentation. The head was delivered atraumatically. The anterior and posterior shoulders delivered without complication followed by the rest of the infant and the infant was placed on the maternal abdomen. Delayed cord clamping was employed for approximately 60 seconds. Cord was clamped and cut and gentle traction was applied to the cord and the placenta delivered spontaneously immediately following it was noted to be intact with three-vessel cord. The perineum and vagina were inspected and noted to have a first degree perineal laceration that was repaire using a 3-0 vicryl stitich. EBL was 50cc. Patient and infant tolerated delivery well. Presentation: DENISE Amniotic Membrane Rupture Type: Spontaneous Time of Membrane Rupture: 10:30 am Amniotic Fluid Description: Clear Placenta Disposition: [facility] Cord Vessel Description: 3 Vessels Cord Entanglement: None Infant A Gender: Male (1 minute): 8 (5 minute): 9 Delayed Cord Clamping: Yes Post Vaginal Delivery Medications Given After Delivery: IV Pitocin Episiotomy Description: None Laceration: 1st degree Complication Complications: None Multi Select Codes Urinary/Genital Urinary/Genital CPT Codes: 79258 Vaginal Delivery [facility]
--- NOTE | 2021-12-17 23:29 | PCM.DC ---
Discharge Instructions Diet Discharge Diet: No restrictions Activity Discharge Activity: Return to Normal Activity, May Not Drive (while taking narcotic pain medications.) and May Shower May resume sexual activity in: 4-6 weeks Dressing / Incision Call your doctor if your incision/area has: Continuous Slow Oozing, Sudden Increased Bleeding, Increased Pain/ Swelling, Increased Redness and Foul Smelling Discharge Follow Up Care Please Follow Up With: Bambi Callaway DO When: Call [phone] to make an appointment with your doctor in 6 weeks. If you had elevated blood pressure or 4th degree laceration, you will need to be seen in 2 weeks. Test Results: Test results from this visit will be discussed in further detail at your follow-up appointment, if applicable. Discharge Plan Admission Admit Date/Time: 12/17/21 12:55 Primary Reason for Your Visit: vaginal delivery Attending Provider: Bambi Callaway Primary Care Provider: Ryley Beck Discharge Orders/Prescriptions Prescriptions: New ibuprofen 800 mg tablet 800 mg PO Q8H PRN (Reason: pain) 7 Days Qty: 30 RF: 0 Continued PNV-DHA 27 mg iron-1 mg -300 mg capsule 1 cap PO DAILY RF: 0 cholecalciferol (vitamin D3) 125 mcg (5,000 unit) tablet 125 mcg PO DAILY RF: 0 nijxa red 1 tab PO DAILY RF: 0 endovan 1 PO RF: 0 levothyroxine 75 mcg tablet 75 mcg PO DAILY Qty: 30 RF: 7 Discontinued folic acid 400 mcg tablet 0.4 mg PO DAILY RF: 0 Referrals / Follow Up: Ryley Beck DO [Primary Care Provider] - Disposition Disposition (needs filled in before D/C Order can be placed): Home, Self Care
[2021-12-18] VITALS (25 sets, daily range): BP systolic 95–114; BP diastolic 53–60; PULSE 70–103; RESP 16; TEMP 36.3–36.7; O2SAT 96–99
[2021-12-18] MEDS: Acetaminophen 500 MG Tablet 1000 MG PO ×3 (01:11→21:58)
[2021-12-18] MEDS: Levothyroxine 75 MCG Tablet PO (05:59)
[2021-12-18] MEDS: Ibuprofen 600 MG Tablet PO (11:34)
--- NOTE | 2021-12-18 19:01 | NURSING ---
this RN has reviewed and agrees with charting completed by roger jenkins, orienting RN
[2021-12-19 00:31] VITALS: BP 107/57; PULSE 78; RESP 16; TEMP 36.2
[2021-12-19 03:40] VITALS: BP 102/62; PULSE 80; RESP 16; TEMP 36.1
[2021-12-19] MEDS: Levothyroxine 75 MCG Tablet PO (06:26)
--- NOTE | 2021-12-19 06:39 | PCM.PN.OB ---
Subjective Subjective Patient doing well without complaints. Tolerating PO. Ambulating and voiding without difficulty. feeding well. Denies chest pain, shortness of breath, calf pain/swelling, fevers, chills, lightheadedness. Objective Data Objective Data Vital Signs: Vital Signs Temp Pulse Resp BP Pulse Ox 97.0 F L 80 16 102/62 98 12/19/21 03:40 12/19/21 03:40 12/19/21 03:40 12/19/21 03:40 12/18/21 15:44 Oxygen Delivery Method Room Air Weight: 183 lb 6.793 oz Body Mass Index (BMI) 34.0 Intake & Output: Intake and Output for Last 24 Hours 12/17/21 12/18/21 12/19/21 23:59 23:59 23:59 Intake Total 2655.32 / 2655.32 333 / 333 Output Total 800 / 800 900 / 900 Balance 1855.32 / 1855.32 -567 / -567 Lab / Micro Data Result Diagrams: 12/17/21 14:45 Micro: Microbiology 12/17/21 13:48 Nasal Secretion SARS-CoV-2 Antigen (Rapid) - Final ROS Constitutional Constitutional: Reports systems reviewed and no addt'l complaints, except as documented Cardiovascular Cardiovascular: Reports systems reviewed and no addt'l complaints, except as documented Respiratory/Chest Respiratory/Chest: Reports systems reviewed and no addt'l complaints, except as documented Gastrointestinal Gastrointestinal: Reports systems reviewed and no addt'l complaints, except as documented Physical Exam Const alert, oriented x3 and no apparent distress HEENT Head and Scalp: atraumatic Resp normal respiratory effort GI soft to palpation and non-tender Bimanual Exam - Vag & Uterus: uterus non-tender Uterus Palpation: uterus fundus firm (below Umbilicus) Assessment & Plan (1) Vaginal delivery: COMMENT: MONISHA COVINGTON boy PLAN: s/p PPD # 1 1. routine post delivery care 2. breast feeding- support given 3. rh positive 4. rubella immune
[2021-12-19 07:35] VITALS: BP 104/67; PULSE 80; RESP 16; TEMP 36.4
[2021-12-19] MEDS: Acetaminophen 500 MG Tablet 1000 MG PO (10:05)
[2021-12-19 13:45] VITALS: BP 99/75; PULSE 80; RESP 16; TEMP 36.3
== END 2021-12-19 14:00 | disposition home or self-care (01) | DRG 798 ==
LOC: WPOUT 13:22 → WP 13:22
PROVIDERS: Admitting Provider Obstetrics & Gynecology; PCP Family Medicine; Referring Provider Obstetrics & Gynecology; Visit Provider Obstetrics & Gynecology
DX: O42.02 Full-term premature rupture of membranes, onset of labor within 24 hours of rupture (principal); Z37.0 Single live birth; E03.9 Hypothyroidism, unspecified; O99.284 Endocrine, nutritional and metabolic diseases complicating childbirth; Z30.2 Encounter for sterilization; O70.0 First degree perineal laceration during delivery; Z3A.39 39 weeks gestation of pregnancy; Z28.310 Unvaccinated for COVID-19; Z28.21 Immunization not carried out because of patient refusal; Z79.899 Other long term (current) drug therapy
CPT/HCPCS: 59025; 59050; 80307; 81001; 85025; 86703; 86780; 86803; 86850; 86900; 86901; 87340; 87426; 87491; 87591; 99218; J7120; A4216; G0378; J2405

== ENCOUNTER → 2022-03-05 | Outpatient (CLI) | payer SELFPAY, OTHER ==
--- NOTE | 2022-03-05 08:33 | US_ITS ---
EXAM: US PELVIS TRANSABDOMINAL AND TRANSVAGINAL, COMPLETE CLINICAL INDICATION: pelvic pain TECHNIQUE: Transabdominal and transvaginal pelvic ultrasound was performed with grayscale and color Doppler imaging. Transvaginal imaging was used for better evaluation of the endometrium and adnexa. This report was created using [employer] report [employer] technology. COMPARISON: None. FINDINGS: UTERUS/CERVIX: Uterus measures 8.2 x 3.1 x 5.1 cm. The endometrium measures 3 mm. Anteverted. There is no uterine mass. RIGHT OVARY: The right ovary measures 2.1 x 2.7 x 1.9 cm. Blood flow is present in the right ovary. LEFT OVARY: The left ovary measures 2.9 x 2.9 x 2.3 cm. Blood flow is present in the left ovary. FREE FLUID: None. BLADDER: Unremarkable as visualized. Wall is normal thickness for degree of distention. US/Transvaginal Non- IMPRESSION: No acute findings in the pelvis. Electronically Signed: Asale Olivo MD at 23:37 EDT ,
--- NOTE | 2022-03-05 08:33 | US_ITS ---
EXAM: US PELVIS TRANSABDOMINAL AND TRANSVAGINAL, COMPLETE CLINICAL INDICATION: pelvic pain TECHNIQUE: Transabdominal and transvaginal pelvic ultrasound was performed with grayscale and color Doppler imaging. Transvaginal imaging was used for better evaluation of the endometrium and adnexa. This report was created using [employer] report [employer] technology. COMPARISON: None. FINDINGS: UTERUS/CERVIX: Uterus measures 8.2 x 3.1 x 5.1 cm. The endometrium measures 3 mm. Anteverted. There is no uterine mass. RIGHT OVARY: The right ovary measures 2.1 x 2.7 x 1.9 cm. Blood flow is present in the right ovary. LEFT OVARY: The left ovary measures 2.9 x 2.9 x 2.3 cm. Blood flow is present in the left ovary. FREE FLUID: None. BLADDER: Unremarkable as visualized. Wall is normal thickness for degree of distention. US/Pelvic (Non ) IMPRESSION: No acute findings in the pelvis. Electronically Signed: Asael Olivo MD at 23:37 EDT ,
== END | disposition home or self-care (01) ==
LOC: OPUS 08:32
PROVIDERS: Visit Provider Obstetrics & Gynecology
DX: R10.2 Pelvic and perineal pain (principal)
CPT/HCPCS: 76830; 76856

== ENCOUNTER → 2022-03-26 | Outpatient (CLI) | payer OTHER, SELFPAY ==
[2022-03-26 13:27] LABS: T4 Free Direct 0.98 ng/dL (0.76-1.46); Thyroid Stim Hormone (TSH) 0.73 uIU/mL (0.358-3.74)
== END | disposition home or self-care (01) ==
LOC: LAB 11:58
PROVIDERS: Visit Provider Nurse Practitioner Family
DX: N89.8 Other specified noninflammatory disorders of vagina (principal)
CPT/HCPCS: 36415; 84439; 84443; 87070; 87205

== ENCOUNTER 2022-12-08 10:25 | Day surgery (SDC) | payer SELFPAY, OTHER ==
--- NOTE | 2022-12-08 12:00 | POC_PTH ---
PATIENT: MICHELINE PERALES LOC: [facility] U#:[id number] AGE/SX: 22/ ROOM: RE12/08/[address]: Dr. Rocio Persaud MD : 2000 BED: DIS: 12/08/2022 SPEC #: [id number] RECD: 12/08/22 16:46 STATUS: DESIREE HEMPHILL #: [id number] MARCO: 12/08/22 12:[address]: Rocio Persaud DEPT: SURGICAL PATHOLOGY RECD BY: Clara Knapp ENTERED: 12/09/22 07:59 SP TYPE: PROD CONC OTHR DR: Dr. Irma Gandara MD Tissues: Product of conception, NOS Procedures: Surgery Specimen Level IV HEADER OPERATION: Suction dilation and curettage PRE-OP DIAGNOSIS: Missed TISSUE SUBMITTED: Products of conception MICROSCOPIC DIAGNOSIS Products of conception: [place], gestational endometrium and a few immature chorionic villi (products of conception), clinically missed . JEAN PAUL:felicitas 12/10/2022 MICROSCOPIC DESCRIPTION Slides are reviewed. GROSS DESCRIPTION Received in fixative is one container labeled with the patient's name and designated products of conception. The specimen consists of multiple irregular fragments of pink soft tissue mixed with mucoid material that in aggregate measure 8.0 x 7.0 x 2.0 cm. tissue is not identified. Salesperson Neckties tissue is submitted in three cassettes. / JEAN PAUL:felicitas 12/09/2022 TC:5 CPT: 58347
[2022-12-08] MEDS: Doxycycline 100 MG CAPSULE PO (12:04)
[2022-12-08] MEDS: Lactated Ringers 1,000 ML 15 ML IV (12:04)
[2022-12-08 12:05] VITALS: BP 106/63; PULSE 90; RESP 12; TEMP 37.4; O2SAT 99; BMI 31.1
[2022-12-08 12:12] LABS: Hematocrit 41.2 % (37-47); Hemoglobin 13.8 g/dL (12.0-15.0); Mean Corp Hgb Conc 33.5 g/dL (32-36); Mean Corpuscular Hgb 29.7 pg (27.0-32.0); Mean Corpuscular Volume 88.6 fL (81-99); Mean Platelet Vol. 10.1 fl (6.2-12.0); Platelet Count 251 K/mm3 (150-450); RBC Distribution Width CV 13.5 % (11.6-14.6); RBC Distribution Width SD 43.9 fl (35.1-43.9); Red Blood Count 4.65 M/mm3 (4.2-5.4); White Blood Count 8.4 K/mm3 (4.4-11.0)
--- NOTE | 2022-12-08 12:25 | HP.PCM_ITS ---
History and Physical OFFICE VISIT Date of Service:? 12/04/22 MR#: [id number] Acct: [id number] Name:? MICHELINE PERALES Rep #: [id number] : 2000 ? ? Provider: Dr. Bambi Callaway, DO Age/Sex:? 22/F ? ? [place] [facility] [place]: [place] Intake Vital Signs ? 12/04/2310:13 12/04/2310:14 Height 5 ft 1.5 in 5 ft 1.5 in Weight: ? 168 lb 4 oz BMI ? 31.2 BP ? 126/75 H Intake Visit Reasons:?NOB? LMP 09/18 Staffing Analyst Required: No Is patient in pain?: No Allergies No Known Allergies Allergy (Verified 12/04/22 11:11) Medications multivitamin no.47-iron fum 27 mg-folate no.1? 1 mg-dha 300 mg capsule (PNV-DHA) 1 cap PO DAILY 05/14/21 [History Confirmed 12/04/22] Last Menstrual Period: 09/18/22 Zika: Zika virus screening: Negative : No PFSH PFSH Medical History? Abdominal pain Acute appendicitis Hypothyroidism affecting No significant medical problems Pelvic pain Thyroid disorder Vaginal delivery Vaginal pain Surgical History? History of laparoscopic appendectomy (~02/2019) Family History? Brother Cancer,? Onset Age: 16 Social History? adopted:? No household members:? spouse and children housing:? house number of children:? 1 service:? No current occupational status:? unemployed current occupation:? [employer] pets and animals:? No history of recent travel:? No sexually active:? Yes Smoking Status:? Never smoker second hand exposure:? No alcohol intake:? never substance use type:? does not use well-balanced diet:? about half the time caffeine:? Yes Type: coffee Number of servings: 1 seatbelt use:? always do you feel safe at home:? Yes additional social history:? Subhash- [facility] History ? ? ? 2 ? Elective abortions ? Hx Para ? ? ? 1 ? Spontaneous abortions ? Hx # Term Pregnancies ? Ectopic pregnancies ? Hx # Pregnancies ? Multiple births ? # of living children ? ? ? 1 Past Pregnancies Del. Date Name GA/Weeks Outcome Route Bth Weight Gen Labor Lgth Anesthesia Del Locatn Provider FOB B 12/17/21 Romario 39 live - full term 7lbs 3oz Male ? epidural [facility] Alan Cullen Delivery Date: 12/17/21? Last Updated by: Christina Russell ? ? ? SROM HPI NOB? LMP 09/18 Details: MICHELINE PERALES is a 22 year old who presents for New OB visit. OB Visit ADONIS Calculator ? Estimated Delivery Date Method Current WG Current Estimate 06/25/23 LMP (Certain) 11w 0d Comments: HIV: Urine Culture: Sequential Screen: NIPT Screen: Estimated Due Date: 06/25/23 Expected Delivery Route/Plan Labor Preferences- CB/BF classes: [] labor support person: [] labor intervention preferences: [] pain management options preferred: [] cut cord/dad catch: [] : [] PP control planned: [] discussed possible routes of delivery and associated risks: [] special requests: [] Specific Issue/Plans Covid status: [] Flu vaccine: [] Tdap vaccine: [] Rhogam: [] LARC form signed: [] Problem list reviewed and updated with the most current plan of care details and appropriate orders placed.? Relevant counseling for the gestational age provided. Continue routine care and follow up unless otherwise noted in visit notes/problem list details Initial Weight:?Not Recorded Date -?-?-?-?-?-?-?-?-?-?-?-?- EGA Weight BP Urine Prot -?-?-?-?-?-?-?-?-?-?-?-?- Glucose FHR FuHt Pres Dilation -?-?-?-?-?-?-?-?-?-?-?-?- Effaced St Visit Note 12/04/22-?-?-?-?-?-?-?-?-?-?-?-?- 11w 0d 168 lb 4 oz 126/75 -?-?-?-?-?-?-?-?-?-?-?-?- ? -?-?-?-?-?-?-?-?-?-?-?-?- ? ? JV- iup measuring 7 weeks 6 days, no heart tones. Menstrual History Last Menstrual Period: 09/18/22 Reported LMP: definite On hormonal BC at conception: No hCG+: 10/29/22 Antepartum Record Genetic Screening: Congenital Heart Defect: Other, Neural Tube Defect: Other, Hemoglobinopathy Or Carrier: Other, Cystic Fibrosis: Other, Chromosome Abnormality: Other, Marshall-Sachs: Other, Hemophilia: Other, Intellectual Disability/Autism: Other, Recurrent Loss/Stillbirth: Other, Other Structural Defect: Other, Other Genetic Disease: Other and Maternal Sentinel bolic Disorder: Other Infection History: Live with someone with TB or Exposed to TB: No, Patient or Partner has history of Genital Herpes: No, Rash or Viral illness since last mentrual period: No, Prior GBS-Infected child: No, History of STD: No, HIV Infection: No, History of Hepatitis: No, Recent travel outside of [place]: No, Concern for hepatitis exposure: No and Varicella immune: No Medical History Medical History: Positive: Thyroid dysfunction and Operations/hospitalizations and Negative: Diabetes, Hypertension, Heart disease, Auto-immune disorder, Kidney disease/UTI, Neurologic/epilepsy, Psychiatric, Depression/ depression, Hepatitis/liver disease, Varicosities/phlebitis, Trauma/domestic violence, History of blood transfusions, D (Rh) Sensitized, Pulmonary (e.g.,TB,Asthma), Seasonal allergies, Drug/latex allergies/reactions, Breast, Marketing Regional Consultant surgery, Anesthetic complications, History of abnormal pap, Uterine anomaly/denise, Infertility, Anti-retroviral treatment, Relevant family history and Other ACOG First Trimester First Trimester: Desire for , Alcohol, Tobacco Cessation, Illicit/Recreational Drug/Substance Use, Intimate Partner Violence, Barriers to care, Unstable Housing, Communication Barriers, Environmental/Work Hazards, Anticipated Course of Care, Toxoplasmosis Precations, Use of Any med ications, Sexual activity, Exercise, Dental Care, Sauna/Hot tub use, Seat Belt use, Childbirth classes/Hospital facilities, , Travel, Indications for Ultrasound and Screening for Aneuploidy Second Trimester Second Trimester: Signs and Symptoms of Labor, Selecting a care provider, Reproductive Life Planning & Contreception, Care Planning, Depression/Anxiety and Intimate Partner Violence; Discussed Tobacco Cessation Third Trimester Third Trimester: Pain Management Plans, Labor support person(s), Immediate P ostpartum Larc, Circumcision preference, Signs and Symptoms of Preeclampsia, Infant Feeding Yes and Education ROS Const All systems reviewed & are unremarkable except as noted in H Resp Reports system reviewed and no additional complaints, except as documented and Denies cough GI Reports as per HPI Psych Reports system reviewed and no additional complaints, except as documented Exam Const General: cooperative, healthy appearing, comfortable and no acute distress Resp Effort & Inspection: normal respiratory effort General: bimanual renal exam normal bilaterally External Female Exam: normal appearance of the urethra Urethra: normal appearance of the urethra Speculum Exam - Vagina: normal appearance of the vagina Speculum Exam - Cervix: normal appearance of the cervix Bimanual Exam- Adnexa, other: normal adnexae and normal Pelvic Support: normal Skin General: no rashes or lesions noted Psych Appearance: grossly normal Speech and Movement: speech and movement normal Coding Level of Care Code Off vis,est,level 4 Diagnoses Supervision of high risk , antepartum? O09.90 Thyroid disorder? E07.9 ? Z34.90 Obesity affecting ? O99.210 Missed ? O02.1 Assessment and Plan Assessment and Plan (1) Supervision of high risk , antepartum: ?Status:?Acute ?Comment: ADONIS 06/25/23, PC Romario, Subhash (2) Thyroid disorder: ?Status:?Acute ?Comment: using Thyromin Capsules from [facility] Please draw TSH level with labs (3) : ?Status:?Acute ?Comment: discussed NIPT (4) Obesity affecting : ?Status:?Acute (5) Missed : ?Status:?Acute ?Plan: After discussing the patient's diagnosis and treatment plan options, patient wishes to proceed with surgical management.? I have discussed with the patient the risks, benefits, and alternatives of the procedure which include but are not limited to risks of anesthesia, bleeding, infection, possible damage to bowel, bladder, or surrounding vasculature which could lead to additional surgery to evaluate any complications.? Patient agrees to procedure and wishes to proceed.? ACOG/uptodate references given for additional information regarding procedure.? plan for suction dilation and curettage UPDATE- I have seen the patient and performed any clinically relevant updates to the history and physical exam. Rocio Persaud MD
--- NOTE | 2022-12-08 12:57 | PCM.OPRPT ---
Problems Associated Problem List Diagnoses (1) Missed : (2) Status post dilatation and curettage: Report of Operation Date of Procedure: 12/08/22 Pre-Operative Diagnosis: see problem list Post-Operative Diagnosis: same Surgery/Procedure Performed:: Suction dilation and curettage Description of Surgical Findings:: no FHT present, Nonviable 8 weeks Surgeon: Rocio Persaud white sidewall tire buffer: None Type of Anesthesia: Local MAC Special Medications: none Specimen's removed: POC Drains: none Estimated Blood Loss (mL): 50 Fluids Replaced: crystalloid Description of Procedure: Patient was taken to the operating room and placed under MAC local anesthesia. She was prepped and draped in the normal sterile fashion the dorsal lithotomy position. Bladder was drained of clear urine and anterior lip of the cervix was grasped and the uterus sounded to 9. Cervix was progressively dilated to allow passage of a 9mm suction curette. Progressive passes were made removing the retained products of conception without complication. Sharp curettage confirmed complete removal of the retained products. All instruments were removed from the vagina and excellent hemostasis was noted and the patient was taken to recovery in stable condition. Grafts/Implants Used: none Complications none Admit VTE Documentation VTE Present on Admission: No VTE Mechan Device Prophylaxis: SCD's Procedures Urinary/Genital 52xxx-59xxx: 18289 Surg Trtmt missed Ab, 1TM
--- NOTE | 2022-12-08 13:01 | DCINST_ITS ---
Discharge Instructions Procedure D&C Diet Discharge Diet: No restrictions Activity Discharge Activity: Return to Normal Activity, May Shower and May Take a Tub Bath (after 1 week) May resume sexual activity in: 1-2 weeks Weight Bearing Status: Weight bearing as tolerated Lifting Restrictions: none Dressing / Incision Call your doctor if you observe: Fever of 101 or Higher, Using more than 1 pad per hour, Shortness of breath and Uncontrolled pain Follow Up Care Please Follow Up With: Rocio Persaud MD When: Call [phone] to schedule appointment. Test Results: Test results from this visit will be discussed in further detail at your follow- up appointment, if applicable. Discharge Plan Admission Attending Provider: Rocio Persaud Primary Care Provider: Irma Gandara Discharge Orders/Prescriptions Prescriptions: No Action PNV-DHA 27 mg iron-1 mg -300 mg capsule 1 cap PO DAILY Thyromin 1 cap PO/SL QHS Referrals / Follow Up: Irma Gandara MD [Primary Care Provider] - Disposition Disposition (needs filled in before D/C Order can be placed): Home, Self Care
[2022-12-08 13:05] VITALS: BP 100/53; BP 106/63; PULSE 79; RESP 18; TEMP 36.3; O2SAT 95
[2022-12-08 13:10] VITALS: BP 100/55; BP 106/63; PULSE 72; RESP 16; O2SAT 97
[2022-12-08 13:15] VITALS: BP 101/56; BP 106/63; PULSE 73; RESP 16; O2SAT 96
[2022-12-08 13:20] VITALS: BP 106/63; BP 98/55; PULSE 72; RESP 16; TEMP 36.3; O2SAT 97
[2022-12-08 14:40] VITALS: BP 106/63; BP 110/60; PULSE 72; RESP 18; O2SAT 99
== END 2022-12-08 15:19 | disposition home or self-care (01) ==
LOC: SDC 10:26 → AC 10:58
PROVIDERS: PCP Family Medicine; Referring Provider Obstetrics & Gynecology; Visit Provider Obstetrics & Gynecology
PROC: (CPT 59820; principal; 2022-12-08 11:45)
DX: O02.1 Missed abortion (principal); O99.281 Endocrine, nutritional and metabolic diseases complicating pregnancy, first trimester; O99.211 Obesity complicating pregnancy, first trimester; E07.9 Disorder of thyroid, unspecified
CPT/HCPCS: 59820; 85027; 86850; 86900; 86901; 88305; J7120; J2405

== ENCOUNTER → 2022-12-23 | Outpatient (CLI) | payer OTHER, SELFPAY ==
[2022-12-23 12:49] LABS: Thyroid Stim Hormone (TSH) 5.19 uIU/mL (0.358-3.74)
[2022-12-24 04:07] LABS: Thyroid Peroxidase AB 40 IU/mL (0-34)
== END | disposition home or self-care (01) ==
LOC: LAB 11:40
PROVIDERS: PCP Family Medicine; Referring Provider Obstetrics & Gynecology; Visit Provider Obstetrics & Gynecology
DX: Z13.29 Encounter for screening for other suspected endocrine disorder (principal); Z98.890 Other specified postprocedural states
CPT/HCPCS: 36415; 84443; 86376

== ENCOUNTER → 2023-01-01 | Outpatient (CLI) | payer SELFPAY, OTHER ==
--- NOTE | 2023-01-01 13:47 | US_ITS ---
STUDY: THYROID ULTRASOUND REASON FOR EXAM: Female, 22 years old. Abnormal thyroid lab test TECHNIQUE: Ultrasound evaluation of the thyroid was performed with real-time and static kim-scale imaging. COMPARISON: Comparison is made with prior examination dated June 14, 2021. FINDINGS: RIGHT LOBE: The right lobe of the thyroid gland is slightly enlarged and measures 5 cm x 1.6 x 1.8 cm. There is a heterogeneous echotexture. There are no demonstrated solid, cystic or complex lesions. LEFT LOBE: The left lobe of the thyroid gland is enlarged and measures 5.3 cm x 1.5 cm x 1.4 cm. There is a heterogeneous echotexture. There are no demonstrated solid, cystic or complex lesions. ISTHMUS: The isthmus measures 3 mm. The regional lymph nodes are normal. US/Thyroid IMPRESSION: Mild enlargement of the thyroid gland. Heterogeneous echotexture of both lobes. No measurable nodule is seen. Electronically Signed: Socrates Scott MD at 12:52 EDT ,
[2023-01-01 15:10] LABS: T4 Free Direct 0.82 ng/dL (0.76-1.46)
== END | disposition home or self-care (01) ==
PROVIDERS: PCP Physician Assistant; Referring Provider Obstetrics & Gynecology; Visit Provider Obstetrics & Gynecology
DX: R79.89 Other specified abnormal findings of blood chemistry (principal)
CPT/HCPCS: 36415; 76536; 84439

== ENCOUNTER → 2023-10-09 | Outpatient (CLI) | payer OTHER, SELFPAY ==
[2023-10-09 11:04] LABS: Progesterone Level 0.39 ng/mL (See Comment)
[2023-10-09 11:08] LABS: Follicle Stimulating Hormone 5.9 mIU/mL; Luteinizing Hormone 4.4 mIU/mL; T4 Free Direct 1.03 ng/dL (0.76-1.46); Thyroid Stim Hormone (TSH) 1.97 uIU/mL (0.358-3.74)
[2023-10-14 00:07] LABS: Estrogen, Total, Serum 80 pg/mL (.)
== END | disposition home or self-care (01) ==
LOC: PAVLAB 09:51
PROVIDERS: PCP Physician Assistant; Referring Provider Registered Nurse; Visit Provider Registered Nurse
DX: E03.8 Other specified hypothyroidism (principal); E06.3 Autoimmune thyroiditis
CPT/HCPCS: 36415; 82672; 83001; 83002; 84144; 84439; 84443

== ENCOUNTER → 2023-10-26 | Outpatient (CLI) | payer OTHER, SELFPAY ==
[2023-10-26 10:53] LABS: Progesterone Level 0.35 ng/mL (See Comment)
== END | disposition home or self-care (01) ==
LOC: PAVLAB 09:52
PROVIDERS: PCP Physician Assistant; Referring Provider Registered Nurse; Visit Provider Registered Nurse
DX: N97.0 Female infertility associated with anovulation (principal)
CPT/HCPCS: 36415; 84144

== ENCOUNTER → 2024-06-03 | Outpatient (CLI) | payer OTHER, SELFPAY ==
[2024-06-03 12:06] LABS: Free T3 2.6 pg/mL (2.18-3.98); T4 Free Direct 0.93 ng/dL (0.76-1.46)
[2024-06-08 16:11] LABS: PROLACTIN 19.4 ng/mL (4.8-33.4); Testosterone Free 0.9 pg/mL (0.0-4.2)
== END | disposition home or self-care (01) ==
LOC: LAB 10:22
PROVIDERS: PCP Physician Assistant; Referring Provider Registered Nurse; Visit Provider Registered Nurse
DX: N97.0 Female infertility associated with anovulation (principal); E03.8 Other specified hypothyroidism; E06.3 Autoimmune thyroiditis
CPT/HCPCS: 36415; 82627; 84146; 84402; 84439; 84443; 84481; 82626

== ENCOUNTER → 2024-10-27 | Outpatient (CLI) | payer OTHER, SELFPAY ==
[2024-10-27 14:29] LABS: hCG Titer Quant., Serum 2617 mIU/mL (1-3)
== END | disposition home or self-care (01) ==
LOC: PAVLAB 13:18
PROVIDERS: PCP Physician Assistant; Referring Provider Obstetrics & Gynecology; Visit Provider Obstetrics & Gynecology
DX: Z34.90 Encounter for supervision of normal pregnancy, unspecified, unspecified trimester (principal)
CPT/HCPCS: 36415; 84702

== ENCOUNTER → 2024-11-02 | Outpatient (CLI) | payer SELFPAY, OTHER ==
--- NOTE | 2024-11-02 17:02 | US_ITS ---
PROCEDURE: TRANSVAGINAL W/PREG US REASON FOR EXAM: Dating. COMPARISON: None. FINDINGS The uterus measures 9.6 x 6.9 x 4.8 cm. No fibroids. A gestational sac is present which dates 6 weeks and 2 days. The yolk sac is visualized. An embryo is visualized with a heart rate of 108. [place]etter- rump length measures 6 weeks and 2 days. EGA by ultrasound of 6 weeks and 2 days. ADONIS by ultrasound of 06/26/2025. Right ovary measures 6.1 x 3.2 x 2.6 cm. Right ovarian dominant follicle which measures 2.6 cm. No adnexal mass. Preserved flow within the right ovary. Left ovary measures 4.0 x 2.6 x 2.1 cm. No adnexal mass. Preserved flow within the left ovary. Minimal free fluid in the cul-de-sac. US/Transvaginal w/Preg US IMPRESSION: Single live intrauterine as above. Reading Location: [id number]
== END | disposition home or self-care (01) ==
PROVIDERS: PCP Physician Assistant; Referring Provider Obstetrics & Gynecology; Visit Provider Obstetrics & Gynecology
DX: N91.2 Amenorrhea, unspecified (principal)
CPT/HCPCS: 76817

== ENCOUNTER → 2024-11-25 | Outpatient (CLI) | payer OTHER, SELFPAY ==
[2024-11-28 21:07] LABS: Chlamydia By Nucleic Acid AMP Negative (Negative); Gonococcus By Nucleic Acid AMP Negative (Negative)
== END | disposition home or self-care (01) ==
LOC: LABSPEC 14:29
PROVIDERS: PCP Physician Assistant; Referring Provider Obstetrics & Gynecology; Visit Provider Obstetrics & Gynecology
DX: O09.90 Supervision of high risk pregnancy, unspecified, unspecified trimester (principal); Z12.4 Encounter for screening for malignant neoplasm of cervix; Z3A.00 Weeks of gestation of pregnancy not specified
CPT/HCPCS: 87086; 87491; 87591; 88175; G0145

== ENCOUNTER → 2024-12-22 | Outpatient (CLI) | payer OTHER, SELFPAY ==
[2024-12-22 13:06] LABS: Absolute Lymphocyte Count 1.49 X10^3/uL (0.83-4.51); Basophil# 0.02 X10^3/uL; Basophil% 0.2 % (0-1); Eosinophil# 0.16 X10^3/uL; Hematocrit 37.8 % (37-47); Hemoglobin 13.2 g/dL (12.0-15.0); Lymphocyte # 1.49 X10^3/ul (0.83-4.51); Lymphocyte % 18.2 % (19-41); Mean Corp Hgb Conc 34.9 g/dL (32-36); Mean Corpuscular Hgb 30.5 pg (27.0-32.0); Mean Corpuscular Volume 87.3 fL (81-99); Mean Platelet Vol. 10.7 fl (6.2-12.0); Monocyte# 0.47 X10^3/uL; Monocyte% 5.7 % (0-10); NRBC Flagged by Analyzer 0 % (0-5); Neutrophil # 6.01 X10^3/uL (2.7-7.7); Neutrophil % 73.4 % (47-70); Platelet Count 245 K/mm3 (150-450); RBC Distribution Width CV 13.5 % (11.6-14.6); RBC Distribution Width SD 43.2 fl (35.1-43.9); Red Blood Count 4.33 M/mm3 (4.2-5.4); White Blood Count 8.2 K/mm3 (4.4-11.0)
[2024-12-22 13:48] LABS: HIV Nonreactive (Nonreactive); Hepatitis B Surface Antigen Nonreactive (Nonreactive); Hepatitis C Antibody Nonreactive (Nonreactive); Rubella IgG REAC (Nonreactive); Syphilis Antibodies Nonreactive (Nonreactive)
== END | disposition home or self-care (01) ==
PROVIDERS: Obstetrics & Gynecology; PCP Physician Assistant; Referring Provider Obstetrics & Gynecology; Visit Provider Obstetrics & Gynecology
DX: O99.280 Endocrine, nutritional and metabolic diseases complicating pregnancy, unspecified trimester (principal); E06.3 Autoimmune thyroiditis; E03.8 Other specified hypothyroidism; Z3A.00 Weeks of gestation of pregnancy not specified
CPT/HCPCS: 36415; 84439; 84443; 85025; 86703; 86762; 86780; 86803; 86850; 86900; 86901; 87340

== ENCOUNTER → 2025-04-05 | Outpatient (CLI) | payer OTHER, SELFPAY ==
[2025-04-05 11:01] LABS: Hematocrit 35.7 % (37-47); Hemoglobin 12.1 g/dL (12.0-15.0); Immature Granulocytes Count 0.100 X10^3/uL (0.0-0.0); Mean Corp Hgb Conc 33.9 g/dL (32-36); Mean Corpuscular Volume 92.2 fL (81-99); Mean Platelet Vol. 10.4 fl (6.2-12.0); NRBC Flagged by Analyzer 0 % (0-5); Platelet Count 212 K/mm3 (150-450); RBC Distribution Width CV 13.7 % (11.6-14.6); RBC Distribution Width SD 46.4 fl (35.1-43.9); Red Blood Count 3.87 M/mm3 (4.2-5.4); White Blood Count 10.1 K/mm3 (4.4-11.0)
[2025-04-05 12:07] LABS: Glucose Challenge Gest 1H 50g 111 mg/dL (70-140); HIV Nonreactive (Nonreactive); Syphilis Antibodies Nonreactive (Nonreactive)
== END | disposition home or self-care (01) ==
LOC: BWCLAB 09:47
PROVIDERS: PCP Physician Assistant; Visit Provider Advanced Practice Midwife
DX: O09.92 Supervision of high risk pregnancy, unspecified, second trimester (principal); Z3A.25 25 weeks gestation of pregnancy; Z13.1 Encounter for screening for diabetes mellitus
CPT/HCPCS: 36415; 82950; 85025; 86703; 86780

== ENCOUNTER → 2025-04-20 | Outpatient (CLI) | payer OTHER, SELFPAY | END | disposition home or self-care (01) | PROVIDERS: PCP Physician Assistant; Visit Provider Nurse Practitioner Women's Health | DX: E03.8 Other specified hypothyroidism (principal); E06.3 Autoimmune thyroiditis | CPT/HCPCS: 36415; 84439; 84443 ==

== ENCOUNTER → 2025-05-31 | Outpatient (CLI) | payer OTHER, SELFPAY | END | disposition home or self-care (01) | LOC: LABSPEC 11:04 | PROVIDERS: PCP Physician Assistant; Referring Provider Obstetrics & Gynecology; Visit Provider Obstetrics & Gynecology | DX: O09.93 Supervision of high risk pregnancy, unspecified, third trimester (principal); Z3A.36 36 weeks gestation of pregnancy | CPT/HCPCS: 87081 ==

== ENCOUNTER 2025-06-22 15:36 | Inpatient (IN) | payer OTHER, SELFPAY ==
[2025-06-22] VITALS (67 sets, daily range): BP systolic 103–186; BP diastolic 53–77; PULSE 72–233; RESP 12–19; TEMP 36.6–37.3; O2SAT 82–100; BMI 36.1
--- NOTE | 2025-06-22 15:54 | HP.PCM.OB_ITS ---
HPI - General General Date of Admission: 06/22/25 HPI Narrative MICHELINE PERALES, is a 25 y/o @ 39 weeks 3 days who presents to L&D in active labor. She was found to be 3-4 cm in the office prior to presenting to L&D. She sat on a birthing ball and walked for 2 hours and stated that if she were home she would come in now. Contractions are becoming closer together and cervix changed to 4.5/80/-2 with bulging membranes. 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 Wears glasses Thyroid disease Headache Shortness of breath on exertion Leg cramps Non-smoker History of irregular heartbeat Vaginal pain Pelvic pain Vaginal delivery Thyroid disorder Hypothyroidism affecting No significant medical problems Acute appendicitis Abdominal pain Home Medications ?Medication ?Instructions ?Recorded ?Last Taken ?Type Lacto-B.anim,bifid-inulin 50 2 cap PO DAILY 11/04/24 U nknown History billion cell-50 mg capsule,delay release (Fortify Probiotic) magnesium 200 mg tablet 400 mg PO QDAY 11/04/24 Unkn own History vitamin B complex 1 tab PO QDAY 11/04/24 Unkno wn History ferrous sulfate 27 mg iron tablet 27 mg PO QDAY Unknown History levothyroxine 75 mcg capsule 75 mcg PO QDAY #30 caps 0 04/20/25 Unknown Rx Allergy/AdvReac Type Severity Reaction Status Date / Time No Known Allergies Allergy Verified 06/22/25 12:23 Family History Brother Cancer, Onset Age: 16 Acute lymphocytic Leukemia Surgical History Status post dilatation and curettage History of laparoscopic appendectomy (~02/2019) Social History adopted: No household members: spouse and children housing: house number of children: 1 current occupational status: unemployed current occupation: [employer] pets and animals: No history of recent travel: No sexually active: Yes Smoking Status: Never smoker second hand exposure: No alcohol intake: never substance use type: does not use diet: other well-balanced diet: daily or most days caffeine: No eating out: rarely or never during the past year weight has: remained stable what type of physical activity do you participate in: none radha/gnosticism: None seatbelt use: always do you feel safe at home: Yes additional social history: Subhash-[employer] History 3 Elective abortions Hx Para 1 Spontaneous abortions 1 Hx # Term Pregnancies Ectopic pregnancies Hx # Pregnancies Multiple births # of living children 1 Past Pregnancies Del. Date Name GA/Weeks Outcome Route Bth Weight Gen Labor Lgth Anesthesia Del Locatn Provider FOB Unknown December 2022 spontaneous 12/17/21 Romario 39 live - full term 7lbs 3oz Male epi dural [facility] Vandvitaly Quiroz Subhash Delivery Date: Last Updated by: Eileen Harrington D&C SM Delivery Date: 12/17/21 Last Updated by: Christina Russell SROM Visit Details Expected Delivery Route/Plan Labor Preferences- CB/BF classes: no labor support person: Subhash labor intervention preferences: [] pain management options preferred: probable epidural cut cord/dad catch: cord : yes PP control planned: discussed discussed possible routes of delivery and associated risks: [] special requests: [] Plans Covid status: [] Flu vaccine: [] Tdap vaccine: declines Rhogam: NA LARC form signed: yes movement and labor precautions reviewed. Problem list reviewed and updated with the most current plan of care details and appropriate orders placed. Relevant counseling for the gestational age provided. Continue routine care and follow up unless otherwise noted in visit notes/problem list details OB Flowsheet Initial Weight: Not Recorded Date -?-?-?-?-?-?-?-?-?-?-?-?- EGA Weight BP Urine Prot -?-?-?-?-?-?-?-?-?-?-?-?- Glucose FHR FuHt Pres Dilation -?-?-?-?-?-?-?-?-?-?-?-?- Effaced St Visit Note 11/25/24 -?-?-?-?-?-?-?-?-?-?-?-?- 9w 4d 159 lb 4 oz 111/76 -?-?-?-?-?-?-?-?-?-?-?-?- 150 -?-?-?-?-?-?-?-?-?-?-?-?- SM- measuring co ns with previous US 12/22/24 -?-?-?-?-?-?-?-?-?-?-?-?- 13w 3d 157 lb 4 oz 102/69 Nega tive -?-?-?-?-?-?-?-?-?-?-?-?- Negative 154 -?-?-?-?-?-?-?-?-?-?-?-?- JV- no complaint s today. needs new ob labs. declines NIPT. 01/18/25 -?-?-?-?-?-?-?-?-?-?-?-?- 17w 2d 160 lb 6 oz 110/60 Nega tive -?-?-?-?-?-?-?-?-?-?-?-?- Negative 158 -?-?-?-?-?-?-?-?-?-?-?-?- MH-No VB. Nausea resolved. NOB labs WNL. No concerns 02/16/25 -?-?-?-?-?-?-?-?-?-?-?-?- 21w 3d 165 lb 4 oz 114/64 Nega tive -?-?-?-?-?-?-?-?-?-?-?-?- Negative 147 -?-?-?-?-?-?-?-?-?-?-?-?- MH-No VB. Good F m. Occa cramping/resolves with rest. 03/13/25 -?-?-?-?-?-?-?-?-?-?-?-?- 25w 0d 171 lb 4 oz 107/71 Nega tive -?-?-?-?-?-?-?-?-?-?-?-?- Negative 150 25 -?-?-?-?-?-?-?-?-?-?-?-?- KW- no vb/lof/ct x. good fm. glucose information given. 04/05/25 -?-?-?-?-?-?-?-?-?-?-?-?- 28w 2d 174 lb 4 oz 104/70 Nega tive -?-?-?-?-?-?-?-?-?-?-?-?- Negative 145 28 -?-?-?-?-?-?-?-?-?-?-?-?- -No VB, LOF. S ome dizziness, feels was heat related. Good FM. Larc. 28 wk labs pending. Declines tdap 04/20/25 -?-?-?-?-?-?-?-?-?-?-?-?- 30w 3d 177 lb 1 oz 100/65 Nega tive -?-?-?-?-?-?-?-?-?-?-?-?- Negative 145 30 -?-?-?-?-?-?-?-?-?-?-?-?- SM- no vb lof go od fm n oreuglar ctx thyroid labs drawn co some odor after intercourse and incresaed discharge- ordered flagyl 05/01/25 -?-?-?-?-?-?-?-?-?-?-?-?- 32w 0d Negative -?-?-?-?-?-?-?-?-?-?-?-?- Negative 160 32 -?-?-?-?-?-?-?-?-?-?-?-?- KW- no vb/lof/ct x. good fm. 05/18/25 -?-?-?-?-?-?-?-?-?-?-?-?- 34w 3d 185 lb 1 oz 106/67 Nega tive -?-?-?-?-?-?-?-?-?-?-?-?- Negative 164 34 -?-?-?-?-?-?-?-?-?-?-?-?- MH-No VB, LOF. G ood FM. No concerns 05/31/25 -?-?-?-?-?-?-?-?-?-?-?-?- 36w 2d 188 lb 3 oz 130/77 Nega tive -?-?-?-?-?-?-?-?-?-?-?-?- Negative 145 37 Cephalic 1 -?-?-?-?-?-?-?-?-?-?-?-?- -3 SM- no v b lof good fm no reuglar ctx gbs done 06/05/25 -?-?-?-?-?-?-?-?-?-?-?-?- 37w 0d 189 lb 106/73 -?-?-?-?-?-?-?-?-?-?-?-?- 130 37 Cephalic -?-?-?-?-?-?-?-?-?-?-?-?- SM- no vb lof go od fm no regualr ctx 06/14/25 -?-?-?-?-?-?-?-?-?-?-?-?- 38w 2d 190 lb 7 oz 105/68 Nega tive -?-?-?-?-?-?-?-?-?-?-?-?- Negative 135 38 Cephalic 3 -?-?-?-?-?-?-?-?-?-?-?-?- SM- no vb lof go od fm no reuglar ctx 06/22/25 -?-?-?-?-?-?--?-?-?-?-?-?- 39w 3d 192 lb 6 oz 118/67 Nega tive -?-?-?-?-?-?-?-?-?-?-?-?- Negative 130 40 Cephalic 4 -?-?-?-?-?-?-?-?-?-?-?-?- 70 -2 KW- no vb/ lof. feeling cramping and having loose stools. good fm. ROS Constitutional Constitutional: Denies change in weight, fatigue, fever(s), headache(s), poor appetite or weakness Eyes Eyes: Denies blurry vision, change in vision, seeing flashes or spots in vision ENT HEENT: Denies dizziness, headache(s), loss taste/smell or sore throat Cardiovascular Cardiovascular: Denies chest pain, dizziness, dyspnea, irregular heart rhythm, leg edema, palpitations, rapid heart rate or vomiting Respiratory/Chest Respiratory/Chest: Denies chest tightness, cough, dyspnea or breast pain Gastrointestinal Gastrointestinal: Denies abdominal pain, anorexia, constipation, cramping, diarrhea, hemorrhoids, vomiting or weight changes Genitourinary Genitourinary: Denies dysuria, flank pain, genital lesions, genital pain, urinar y frequency or urinary urgency Musculoskeletal Musculoskeletal: Denies back pain, difficulty walking, joint pain, limited range of motion, muscle cramps or numbness Integumentary Integumentary: Denies lesions or unusual bruising Neurologic Neurologic: Denies abnormal movements, abnormal speech, dizziness, numbness, seizure-like activity or syncope Psychiatric Psychiatric: Denies anxiety, behavioral changes, change in appetite, change in libido, cognitive impairment, confusion, depression, difficulty concentrating, hallucinations or suicidal thoughts Endocrine Endocrinology: Denies excessive sweating, polydipsia or polyuria Hematologic/Lymphatic Hematologic/Lymphatic: Denies easy bleeding, easy bruising or lymphadenopathy Allergic/Immunologic Allergic/Immunologic: Denies itchy eyes, lip swelling, seasonal rhinorrhea, rhinitis, throat swelling, tongue swelling, eczemia, wheezing or asthma Vital Signs Vital Signs Vital Signs: 06/22/25 12:01 06/22/25 12:01 06/22/25 12:01 Temperature Temperature Source Tympanic Pulse Rate Respiratory Rate 12 Blood Pressure BP Systolic BP Diastolic Pulse Ox 99 06/22/25 12:01 06/22/25 12:01 06/22/25 12:01 Temperature 97.8 F Temperature Source Pulse Rate 75 Respiratory Rate Blood Pressure 103/58 L BP Systolic 103 BP Diastolic 58 Pulse Ox 06/22/25 12:01 Temperature 98.4 F Temperature Source Pulse Rate Respiratory Rate Blood Pressure BP Systolic BP Diastolic Pulse Ox Weight Weight: 191 lb Body Mass Index (BMI) 36.1 Physical Exam Const alert, oriented x3, no apparent distress and healthy appearing General Appearance: cooperative; Negative for anxious HEENT normocephalic Face and Sinus: normal facial exam Eyes EOMs intact bilaterally and no scleral icterus General Eye: normal appearance of both eyes Neck full ROM and supple Lymph Lymphatic: no lymphadenopathy noted Resp normal respiratory effort Effort and Inspection: able to speak in complete sentences Cardio regular rate GI soft to palpation and non-tender Inspection: gravid Palpation: soft; Negative for tender external exam normal Narrative: cx is 4.5/80/0-2 vertex with bulging membranes. Back/Spine no CVA tenderness Extremity normal to inspection, full ROM and no clubbing, cyanosis or edema General Extremity: Negative for calf tenderness or edema Skin Lesions: no lesions Rashes: no rashes Psych mental status grossly normal Labs Labs Labs: Blood Type O POSITIVE Antibody Screen NEGATIVE Hct, (37-47) 35.7 % L Hgb, (12.0-15.0) 12.1 g/dL Obstetrics Ultrasound Syphilis Total Ab, (Nonreactive) Nonreactive Rubella IgG Antibody, (Nonreactive) REAC Hep Bs Antigen, (Nonreactive) Nonreactive Hepatitis C Antibody, (Nonreactive) Nonreactive Chlamydia DNA (KIM), (Negative) Negative N.gonorrhoeae DNA (KIM), (Negative) Negative HIV 1&2 Antibody, (Nonreactive) Nonreactive Glucose 1 Hr 50 gm, (70-140) 111 mg/dL Miscellaneous Test Pending Assessment & Plan (1) Supervision of high-risk : QUALIFIERS: Trimester: third trimester Qualified Code(s): O09.93 - Supervision of high risk , unspecified, third trimester COMMENT: PRR, , ADONIS 06/26/25, surprise PC Romario, Subhash (2) Hx of one miscarriage: COMMENT: 2022 (3) : QUALIFIERS: Weeks of gestation: 39 weeks Qualified Code(s): Z3A.39 - 39 weeks gestation of COMMENT: Neg GBS. declined NIPT & Carrier testing. 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 on levothyroxine 75 mcg.TSH receptor antibody neg. PLAN: Plan Patient presents IAL, plan expectant management for , pitocin/AROM PRN if needed. Pain management: plans epidural. GBS positive plan IV PCN. Management of any complications: see above I have reviewed the [facility] and made any clinically relevant updates.
[2025-06-22] MEDS: Lactated Ringers 1,000 ML 999 ML IV (16:01)
--- OUTSIDE RECORDS SUMMARY | 2025-06-22 16:01 | XMS RPT_ITS | CCD ---
Author Organization [facility] Care Team Providers Care Window Maker Name Role Phone Dr. Ryley Beck Primary Care Provider Dr. Ryley Beck Referring Provider [phone] Dr. Bambi Callaway Attending Provider [phone] Dr. Rocio Persaud Attending Provider [phone] Karla FEED PROJECT ENGINEER, [place] Peña Attending Provider [phone] Dr. Ryley Beck Primary Care Provider [phone] Dr. Ryley Beck Referring Provider Dr. Bambi Callaway Attending Provider 1(3 [phone]) Dr. Bmabi Callaway Referring Provider 1(3 30) Dr. Bambi Callaway Other Provider Dr. Bambi Callaway Admit Provider Dr. Ryley Beck Primary Care Provider Dr. Ryley Beck Referring Provider Dr. Bambi Callaway Attending Provider [phone] Dr. Rocio Persaud Attending Provider [phone] Dr. Ryley Beck Primary Care Provider Dr. Ryley Beck Referring Provider Dr. Rocio Persaud Attending Provider [phone] Dr. Bambi Callaway Attending Provider [phone] Dr. Bambi Callaway Attending Provider Dr. Venkat Jain Primary Care Provider Dr. Venkat Jain Referring Provider Dr. Rocio Persaud Attending Provider [phone] Dr. Rocio Persaud Referring Provider [phone] Dr. Rocio Persaud Other Provider Dr. Irma Gandara Primary Care Provider Dr. Irma Gandara Referring Provider Sacha Levy PA-Cke E Unavailable Eric Ferreira LPN Unavailable Unavailable LUIS F Levy Primary Care Provider LUIS F Levy Referring Provider BRAN Miller Attending Provider Shira Patel MA Unavailable Unavailable Komal Grigsby LPN Unavailable Unavailabl e SLADIC, YAA DC Admitting Unavailable SLADIC, YAA DC Attending Unavailable SLADIC, YAA DC Primary Care Unavailable SLADIC, YAA DC Attending Unavailable SLADIC, YAA DC Primary Care Unavailable SLADIC, YAA DC Admitting Unavailable Abdirizak Abdul Primary Care Provider Dr. Rocio Persaud MD Attending Provider [phone] Dr. Rocio Persaud MD Referring Provider [phone] Abdirizak Abdul Primary Care Provider [phone] Abdirizak Abdul Referring Provider Dr. Bambi Callaway DO Attending Provider Dr. Bambi Callaway DO Referring Provider Mariana Steiner Attending Provider SACHA LEVYKE E Primary Care Unavailable BAMBI GARCIA Attending Unavailab le BAMBI GARCIA Referring Unavailab le MILDRED LUKE E Primary Care Unavailable BAMBI GARCIA Referring Unavailab DANNY Gaston Attending Unavailable Dr. Rocio Persaud MD Attending Provider Mildred PA, Luke Primary Care Provider Dr. Rocio Persaud MD Referring Provider Jacinta Rojas CNM Attending Provider [phone] Mildred PA, Luke Primary Care Provider Mildred PA, Luke Referring Provider Mildred PA, Luke Primary Care Provider Dr. Rocio Persaud MD Attending Provider [phone] Mildred PA, Luke Primary Care Provider Mildred PA, Luke Referring Provider Mildred PA, Luke Primary Care Provider Mildred PA, Luke Primary Care Physician Mildred PA, Luke Referring Provider Mariana Steiner Attending Physician [phone] Jacinta Rojas CNM Attending Physician Mildred PA, Luke Primary Care Physician Dr. Rocio Persaud MD Attending Physician Dr. Rocio Persaud MD Referring Provider Mildred, Luke Primary Care Unavailable Mildred, Luke Referring Unavailable Rocio Persaud Attending Unavailable Mildred, Luke Referring Unavailable Mildred, Luke Primary Care Unavailable Mariana Acosta NP Attending Unavailable Mildred, Luke Primary Care Unavailable Rocio Persaud Attending Unavailable Rocio Persaud Referring Unavailable Bambi Callaway Attending Unavailabl e Mildred, Luke Primary Care Unavailable Mildred, Luke Referring Unavailable Mildred, Luke Primary Care Unavailable Mildred, Luke Referring Unavailable Rocio Persaud Attending Unavailable Mildred, Luke Primary Care Unavailable Mildred, Luke Referring Unavailable Marcanthony, Rocio Attending Unavailable Mildred, Luke Primary Care Unavailable Mildred, Luke Referring Unavailable Mcfarland FEED PROJECT ENGINEER, Mariana Attending Unavailable Mildred, Luke Primary Care Unavailable Jacinta Rojas Attending Unavailable Vande Velde, Bambi Referring Unavailabl e Vande Velde, Bambi Attending Unavailabl e Mildred, Luke Primary Care Unavailable Mildred, Luke Primary Care Unavailable Marcanthony, Rocio Referring Unavailable Marcanthony, Rocio Attending Unavailable Mildred, Luke Primary Care Unavailable Jacinta Rojas Attending Unavailable Mildred, Luke Referring Unavailable Mildred, Luke Primary Care Unavailable Marcanthony, Rocio Attending Unavailable Marcanthony, Rocio Referring Unavailable Vande Velde, Bambi Referring Unavailabl e Vande Velde, Bambi Attending Unavailabl e Vande Velde, Bambi Admitting Unavailabl e Mildred, Luke Primary Care Unavailable Mcfarland FEED PROJECT ENGINEER, Mariana Attending Unavailable Mildred, Luke Primary Care Unavailable Mildred, Luke Primary Care Unavailable Marcanthony, Rocio Referring Unavailable Marcanthony, Rocio Attending Unavailable Mcfarland FEED PROJECT ENGINEER, Mariana Attending Unavailable Mildred, Luke Referring Unavailable Mildred, Luke Primary Care Unavailable Mildred, Luke Primary Care Unavailable Mildred, Luke Referring Unavailable Marcanthony, Rocio Attending Unavailable Mildred, Luke Primary Care Unavailable Mildred, Luke Referring Unavailable Jacinta Rojas Attending Unavailable Karla FEED PROJECT ENGINEER, Mariana Attending Unavailable Mildred, Luke Primary Care Unavailable Mildred, Luke Referring Unavailable Mildred, Luke Referring Unavailable Mildred, Luke Primary Care Unavailable Marcanthony, Rocio Attending Unavailable Medications Current Medications Medication Drug Class(es) Dates Sig (Normalized) Sig (Original) endovan (20 sources) Start: 06-28-2021 endovan Active 1 PO June 28, 2021 12:59pm Start: 06-28-2021 endovan Active PO June 28, 2021 12:59pm Start: 06-28-2021 End: 03-26-2022 endovan Discontinued 1 PO 0 June 28, 2021 12:00am March 26, 2022 11:09am Start: 06-28-2021 End: 03-26-2022 endovan Discontinued 1 PO Oc tober 2020 11:00pm March 26, 2022 10:09am Start: 06-28-2021 End: 03-26-2022 endovan Discontinued 1 PO Oc tober 2020 12:00am March 26, 2022 11:09am Start: 06-28-2021 endovan Active 1 PO June 28, 2021 12:00am ferrous sulfate 134 mg oral tablet (10 sources) Start: 04-05-2025 take 1 tablet by mouth once daily Ferrous Sulfate 27 mg iron tablet Active 27 mg PO daily April 05, 2025 12:00am Complies with drug therapy Lacto 51-B.Animal,Bifid-Inuli n (Fortify Probiotic) 50 billion cell-50 mg capsule,delayed release(DR/EC) (16 sources) Start: 11-04-2024 Lacto 51-B.Animal,Bifid-Inul in (Fortify Probiotic) 50 billion cell-50 mg capsule,delayed release(DR/EC) Active 2 NMA PO DAILY November 04, 2024 1:00am Complies with drug therapy Start: 11-04-2024 Lacto 51-B.Ani mal,Bifid-Inulin (Fortify Probiotic) 50 billion cell-50 mg capsule,delayed release(DR/EC) Active 2 NMA PO DAILY November 04, 2024 1:00am Magnesium (16 sources) Start: 11-04-2024 take 2 tablets by mo uth once daily Magnesium 200 mg tablet Active 400 mg PO daily November 04, 2024 1:00am Complies with drug therapy Start: 11-04-2024 take 2 tablets by mo uth once daily Magnesium 200 mg tablet Active 400 mg PO daily November 04, 2024 1:00am Multivit 01-Vidi-Ithtrs 1-Dha (Pnv-Dha) 27 mg iron-1 mg -300 mg capsule (20 sources) Start: 05-14-2021 take 1 capsule by mouth once daily Multivit 60-Qjxc-Wtqddu 1-Dha (Pnv-Dha) 27 mg iron-1 mg -300 mg capsule Active 1 CAP PO DAILY May 14, 2021 2:17pm Start: 05-14-2021 Multivit 47-Ir on-Folate 1-Dha (Pnv-Dha) 27 mg iron-1 mg -300 mg capsule Active CAP PO May 14, 2021 2:17pm Start: 05-14-2021 End: 11-04-2024 Multivit 21-Ofyc-Xdlsjg 1-Dh a (Pnv-Dha) 27 mg iron-1 mg -300 mg capsule Discontinued 1 NMA PO DAILY May 14, 2021 12:00am November 04, 2024 12:42pm Start: 05-14-2021 take 1 capsule by mo [facility] once daily Multivit 69-Wsdm-Fppaap 1-Dha (Pnv-Dha) 27 mg iron-1 mg -300 mg capsule Active 1 CAP PO DAILY May 13, 2021 11:00pm Start: 05-14-2021 take 1 capsule by mo [facility] once daily Multivit 10-Gfpq-Mskkxk 1-Dha (Pnv-Dha) 27 mg iron-1 mg -300 mg capsule Active 1 CAP PO DAILY May 14, 2021 12:00am nijxa red (20 sources) Start: 06-28-2021 [facility] nijxa red Active 1 TABLET PO DAILY June 28, 2021 12:58pm Start: 06-28-2021 nijxa red Acti ve PO June 28, 2021 12:58pm Start: 06-28-2021 End: 03-26-2022 nijxa red Discontinued 1 {tb l} PO DAILY 0 June 28, 2021 12:00am March 26, 2022 11:10am Check with primary doctor Start: 06-28-2021 End: 03-26-2022 nijxa red Discontinued 1 {tb l} PO DAILY June 28, 2021 12:00am March 26, 2022 11:10am Start: 06-28-2021 End: 03-26-2022 take 1 tablet by mouth once daily nijxa red Discontinued 1 TABLET PO DAILY June 27, 2021 11:00pm March 26, 2022 10:10am Start: 06-28-2021 End: 03-26-2022 take 1 tablet by mouth once daily nijxa red Discontinued 1 TABLET PO DAILY June 28, 2021 12:00am March 26, 2022 11:10am Start: 06-28-2021 take 1 tablet by marixa once daily nijxa red Active 1 TABLET PO DAILY June 28, 2021 12:00am Vitamin B Complex tablet (16 sources) Start: 11-04-2024 Vitamin B Comp nina tablet Active 1 {tbl} PO daily November 04, 2024 1:00am Complies with drug therapy Start: 11-04-2024 Vitamin B Comp nina tablet Active 1 {tbl} PO daily November 04, 2024 1:00am Completed/Discontinued Medications Medication Drug Class(es) Dates Sig (Normalized) Sig (Original) amoxicillin 500 mg oral capsule (20 sources) Penicillin-class Antibacterial Start: 04-03-2022 End: 04-10-2022 take 1 capsule by mouth twice daily Amoxicillin 500 mg capsule Discontinued 500 mg PO TWICE A DAY 14 7 0 April 03, 2022 12:00am April 09, 2022 12:00am April 10, 2022 12:04am Take one capsule by mouth twice a day for 7 days. cholecalciferol 0.125 mg oral tablet (20 sources) Vitamin D Start: 06-28-2021 End: 03-26-2022 take 1 tablet by mouth once daily Cholecalciferol (Vitamin D3) 125 mcg (5,000 unit) tablet Discontinued 125 ug PO DAILY June 28, 2021 12:00am March 26, 2022 11:09am folic acid 0.4 mg oral tablet (20 sources) Start: 06-28-2021 End: 12-17-2021 take 0.4 mg by mouth once daily Folic Acid 400 mcg tablet Discontinued 0.4 mg PO DAILY June 28, 2021 12:00am December 17, 2021 11:29pm Start: 06-28-2021 End: 12-17-2021 take 0.4 mg by mouth once daily Folic Acid Discontinued 0.4 MG PO DAILY June 27, 2021 11:00pm December 17, 2021 10:29pm ibuprofen 800 mg oral tablet (20 sources) Nonsteroidal Anti-inflammatory Drug Start: 12-17-2021 End: 01-31-2022 take 1 tablet by mouth every eight hours as needed for pain Ibuprofen 800 mg tablet Discontinued 800 mg PO Q8H as needed for pain 30 7 0 December 17, 2021 12:00am January 31, 2022 3:35pm Start: 03-01-2019 End: 05-14-2021 take 1 tablet by mouth once daily as needed for pain Ibuprofen 200 MG tablet Discontinued 200 mg PO DAILY NEEDED as needed for Pain March 01, 2019 12:00am May 14, 2021 2:17pm lactobacillus acidophilus [id number] unt oral capsule (20 sources) Start: 03-01-2019 End: 05-14-2021 Lactobacillus Acidophilus 1 EACH capsule Discontinued 1 NMA PO DAILY March 01, 2019 12:00am May 14, 2021 2:17pm digestion Start: 03-01-2019 End: 05-14-2021 Lactobacillus Acidophilus Di scontinued 1 EACH PO DAILY February 28, 2019 11:00pm May 14, 2021 1:17pm Levothyroxine (20 sources) l-Thyroxine Start: 04-20-2025 End: 04-20-2025 take 1 capsule by mouth once daily Levothyroxine 37.5 mcg capsule Discontinued 37.5 ug PO daily 05 09April 20, 2025 9:57am April 20, 2025 1:27pm Start: 04-20-2025 take 1 capsule by mo [facility] once daily Levothyroxine 37.5 mcg capsule Active 37.5 ug PO daily 05 09April 20, 2025 9:57am Start: 04-20-2025 take 0.5 tablet by m [facility] once daily Levothyroxine 75 mcg capsule Active 75 ug PO daily 05 09April 20, 2025 12:00am take 1/2 tablet daily on an empty stomach, 30-60min prior to eating or drinking Complies with drug therapy Start: 11-04-2024 End: 04-20-2025 take 1 capsule by mouth once daily Levothyroxine 37.5 mcg capsule Discontinued 37.5 ug PO daily November 04, 2024 1:00am April 20, 2025 9:57am Start: 11-04-2024 take 1 capsule by mo [facility] once daily Levothyroxine 37.5 mcg capsule Active 37.5 ug PO daily November 04, 2024 1:00am Start: 06-06-2024 End: 06-06-2024 take 1 tablet by mouth once daily Levothyroxine 88 mcg tablet Discontinued 88 ug PO DAILY June 06, 2024 10:28am June 06, 2024 1:02pm Start: 02-11-2024 Synthroid 75 m cg tablet ; 1 (one) tablet daily for 0 days Quantity: 90 {Tablet} Refills: 3 Ordered: 11-Feb-2024 CADENCE Grigsby Start: 11-Feb-2024 Comments: Managed by Aleksandr Griffin Start: 01-08-2023 End: 06-06-2024 take 1 tablet by mouth once daily Levothyroxine 75 mcg tablet Discontinued 75 ug PO DAILY 100 January 08, 2023 12:00am June 06, 2024 10:30am Start: 07-01-2021 End: 11-26-2022 take 1 tablet by mouth once daily Levothyroxine 75 mcg tablet Discontinued 75 ug PO DAILY 30 April 17, 2022 1:31pm November 26, 2022 11:08am Comment on above: Managed by Betito johnson Endo metroNIDAZOLE 500 mg oral tablet (8 sources) Nitroimidazole Antimicrobial Start: 04-20-20 End: 04-27-20 take 1 tablet by mouth twice daily Metronidazole 500 mg tablet Discontinued 500 mg PO TWICE A DAY 14 7 0 April 20, 2025 12:00am April 26, 2025 12:00am April 27, 2025 12:06am omeprazole 20 mg delayed release oral tablet (20 sources) Proton Pump Inhibitor Start: 03-01-20 End: 05-14-20 take 1 tablet by mouth once daily Omeprazole Magnesium 20 MG tablet,delayed release (DR/EC) Discontinued 20 mg PO DAILY March 01, 2019 12:00am May 14, 2021 2:17pm oxyCODONE hydrochloride 5 mg oral tablet (20 sources) Opioid Agonist Start: 03-02-20 End: 03-09-20 take 1 tablet by mouth every six hours as needed for pain Oxycodone 5 MG tablet Discontinued 5 mg PO EVERY 6 HOURS NEEDED as needed for Severe Pain () 20 7 0 March 02, 2019 March 08, 2019 12:00am March 09, 2019 1:38pm Acute appendicitis Unspecified acute appendicitis Thyromin (20 sources) Start: 12-06-19 End: 10-09-19 24 Thyromin Discontinued 1 NMA SL/PO AT BEDTIME December 05, 2022 12:00am October 09, 2023 10:10am Start: 12-05-2022 End: 10-09-2023 take 1 capsule by mouth at bedtime Thyromin Discontinued 1 CAP SL/PO AT BEDTIME December 04, 2022 11:00pm October 09, 2023 9:10am Start: 12-05-2022 take 1 capsule by mo uth at bedtime Thyromin Active 1 CAP SL/PO AT BEDTIME December 05, 2022 12:00am Problems Active Problems Problem Classification Problem Date Documented Date Episodic/Chronic Abdominal pain (20 sources) Abdominal pain; Translations: [Unspecified abdominal pain] Episodic Comment on above: suspect atrophy seco ndary to breast feeding. pt will call if pain comes back and will prescribe estradiol cream. Appendicitis and other appendiceal conditions (20 sources) Acute appendicitis; Translations: [Unspecified acute appendicitis] 05-14-2021 Episodic Female infertility (20 sources) Female infertility associated with anovulation; Translations: [Female infertility associated with anovulation] 10-09-2023 Chronic Comment on above: desires to obtain ov betty reserve testing, prolactin and TSH. declines pap and gc/ct today. Menstrual disorders (1 source) Amenorrhea, unspecified; Translations: [Amenorrhea, unspecified] Onset: 11-15-2024 Chronic Other aftercare (2 sources) Encounter for follow-up examination after completed treatment for conditions other than malignant neoplasm; Translations: [Follow-up examination, following surgery, unspecified] 12-23-2022 Episodic Other complications of (20 sources) Maternal obesity complicating , childbirth and the puerperium, antepartum; Translations: [Obesity complicating , unspecified trimester] 12-08-2022 Chronic Other complications of (2 sources) Obesity complicating , unspecified trimester; Translations: [Obesity complicating , childbirth, or the puerperium, unspecified as to episode of care or not applicable] 12-04-2022 Chronic Other complications of (20 sources) Hypothyroidism in ; Translations: [Endocrine, nutritional and metabolic diseases complicating , unspecified trimester] 12-21-2021 Episodic Comment on above: Following kyle Howard Other complications of (20 sources) Missed miscarriage; Translations: [Missed ] 12-08-2022 Episodic Other complications of (20 sources) High risk ; Translations: [Supervision of high risk , unspecified, unspecified trimester] 12-08-2022 Episodic Comment on above: , ADONIS 06/26/25, PC Romario, Subhash ADONIS 06/25/23, P C Romario, Subhash PRR, , ADONIS 06/26, PC Romario, Subhash PRR, , ADONIS 06/26, surprise PC Romario, Subhash Other complications of (4 sources) Missed ; Translations: [Missed ] 12-04-2022 Episodic Other complications of (1 source) Supervision of high risk , unspecified, third trimester; Translations: [Supervision of high risk , unspecified, third trimester] Onset: 06-10-2025 Episodic Other complications of (1 source) Supervision of high risk , unspecified, second trimester; Translations: [Supervision of high risk , unspecified, second trimester] Onset: 04-11-2025 Episodic Other female genital disorders (2 sources) Vaginal pain; Translations: [Vaginal pain] 11-26-2022 Episodic Comment on above: suspect atrophy seco ndary to breast feeding. pt will call if pain comes back and will prescribe estradiol cream. Other skin disorders (9 sources) Epidermoid cyst of skin of scalp; Translations: [Epidermal cyst] 07-20-2023 Episodic Residual codes; unclassified (20 sources) Tetanus diphtheria and acellular pertussis vaccination declined; Translations: [Immunization not carried out because of patient refusal] 11-01-2021 Episodic Residual codes; unclassified (2 sources) Immunization not carried out because of patient refusal; Translations: [Vaccination not carried out because of patient refusal] Episodic Residual codes; unclassified (2 sources) Other specified postprocedural states; Translations: [Other postprocedural status] 12-08-2022 Episodic Residual codes; unclassified (20 sources) H/O: miscarriage; Translations: [Personal history of other complications of , childbirth and the puerperium] 11-04-2024 Episodic Comment on above: 2022 Residual codes; unclassified (1 source) Personal history of other complications of , childbirth and the puerperium; Translations: [Personal history of other complications of , childbirth and the puerperium] Onset: 05-31-2025 Episodic Residual codes; unclassified (1 source) 36 weeks gestation of ; Translations: [36 weeks gestation of ] Onset: 05-31-2025 Episodic Residual codes; unclassified (1 source) 32 weeks gestation of ; Translations: [32 weeks gestation of ] Onset: 05-01-2025 Episodic Thyroid disorders (20 sources) Goiter; Translations: [Iodine-deficiency related diffuse (endemic) goiter] Onset: 05-31-2025 Chronic Comment on above: Managed by Betito on Endo needs PCP or Endo tsh/free t4 check. o n levothyroxine 75 mcg tsh/free t4 checked at other provider- WNL. on levothyroxine 75 mcg tsh/free t4 checked at other provider- WNL. on levothyroxine 75 mcg.TSH receptor antibody neg. Thyroid disorders (20 sources) Disorder of thyroid gland; Translations: [Disorder of thyroid, unspecified] 12-08-2022 Episodic Comment on above: using Thyromin Capsu les from [facility] draw TSH level with labs Unclassified (2 sources) Follow up for chronic condition - The patient is here for follow-up of hypothyroidism. The patient always takes the prescribed medications. No side effects noted. The patient has an active lifestyle but no regular exercise program. The patient's dietary compliance is fairly good usually adhering to recommendations. The patient states that weight has decreased (down 2 lbs). 02-10-2024 Past or Other Problems Problem Classification Problem Date Documented Date Episodic/Chronic Other complications of (20 sources) Endocrine, nutritional and metabolic diseases complicating , unspecified trimester; Translations: [Thyroid dysfunction of mother, unspecified as to episode of care or not applicable] Onset: 12-27-2024 Episodic Other complications of (3 sources) Supervision of high risk , unspecified, unspecified trimester; Translations: [Supervision of unspecified high-risk ] Onset: 12-01-2024 12-04-2022 Episodic Other and delivery including normal (20 sources) Normal ; Translations: [Encounter for supervision of normal , unspecified, unspecified trimester] Onset: 11-09-2024 Episodic Comment on above: JV boy PRR (SP labs) E boy Spouse: Subhash GBS negative declined NIPT & Love ier testing declines carrier, ge netic and NTD screening. dec std testing- plan RPR, HepC, HIV, GCC, Tox screen at delivery. NL anatomy discussed NIPT declined NIPT & Love ier testing. declined NIPT & Love ier testing. , nl GCT Neg GBS. declined NI PT & Carrier testing. , nl GCT Other screening for suspected conditions (not mental disorders or infectious disease) (1 source) Encounter for screening for malignant neoplasm of cervix; Translations: [Encounter for screening for malignant neoplasm of cervix] Onset: 11-25-2024 Episodic Residual codes; unclassified (1 source) 25 weeks gestation of ; Translations: [25 weeks gestation of ] Onset: 03-13-2025 Episodic Unclassified (3 sources) cyst - Patient notes concern for what she believes to be a cyst of her scalp which has been present for the past 6-12 months. She states that she has experienced difficulty with cysts of her scalp before stating that she had one which spontaneously drained and was very uncomfortable. She states that the cyst seemingly increased in size significantly over the past 6 months and has become more irritated, particularly when putting her hair in a bun and wearing her cap. 07-13-2023 Results Test Name Value Interpretation Reference Range Facility Back Maker Office Visit Reporton 06-14-2025 Back Maker Office Visit Report [facility] [address], [address] [place] [address] OFFICE VISIT Date of Service: 06/14/25 MR#: [id number] Acct: [id number] Name: MICHELINE PERALES Rep #: [id number] : 2000 Provider: Dr. Rocio hoang MD Age/Sex: 25/F Location: [facility] Status: Signed Intake Vital Signs 05/18/25 09:56 06/05/25 08:46 06/14/25 11:40 06/14/25 11:43 Height 5 ft 1 in 5 ft 1 in 5 ft 1 in 5 ft 1 in Weight: 190 lb 7 oz BMI 35.9 BP 105/68 Intake Visit Reasons: 38 WK OB Wagon Driver Required: No Is patient in pain?: No Allergies No Known Allergies Allergy (Verified 06/14/25 11:40) Medications ???Medication ???Instructions ???Recorded ???Confirmed ???Type Lacto-B.anim,bifid-inul in 50 2 cap PO DAILY 11/04/24 06/14/25 H istory billion cell-50 mg capsule,delay release (Fortify Probiotic) magnesium 200 mg tablet 400 mg PO QDAY 11/04/24 06/14/25 H istory vitamin B complex 1 tab PO QDAY 11/04/24 06/14/25 Hi story ferrous sulfate 27 mg iron tablet 27 mg PO QDAY 04/05/25 06/14/25 H istory levothyroxine 75 mcg capsule 75 mcg PO QDAY #30 caps 04/20/25 1 Rx Last Menstrual Period: 04/30/24 Zika: Zika virus screening: Negative : No PFSH PFSH Medical History 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 Wears glasses Thyroid disease Headache Shortness of breath on exertion Leg cramps Non-smoker History of irregular heartbeat Vaginal pain Pelvic pain Vaginal delivery Thyroid disorder Hypothyroidism affecting No significant medical problems Acute appendicitis Abdominal pain Surgical History Status post dilatation and curettage History of laparoscopic appendectomy ( 02/2019) Family History Brother Cancer, Onset Age: 16 Acute lymphocytic Leukemia Social History adopted: No household members: spouse and children housing: house number of children: 1 current occupational status: unemployed current occupation: [employer] pets and animals: No history of recent travel: No sexually active: Yes Smoking Status: Never smoker second hand exposure: No alcohol intake: never substance use type: does not use diet: other well-balanced diet: daily or most days caffeine: No eating out: rarely or never during the past year weight has: remained stable what type of physical activity do you participate in: none radha/mormonism: None seatbelt use: always do you feel safe at home: Yes additional social history: Sub[place] [employer] History 3 Elective abortions Hx Para 1 Spontaneous abortions 1 Hx # Term Pregnancies Ectopic pregnancies Hx # Pregnancies Multiple births # of living children 1 Past Pregnancies Del. Date Name GA/Weeks Outcome Route Bth Weight Infant Gen Labor Lgth Anesthesia Del Locatn Provider FOB Unknown December 2022 spontaneous 12/17/21 Romario 39 live - full term 7lbs 3oz Male epidural [facility] V graham Quiroz Subhash Delivery Date: Last Updated by: Eileen Lomas SM Delivery Date: 12/17/21 Last Updated by: Christina KING HPI 38 WK OB Details: MICHELINE PERALES is a 25 year old who presents for routine OB visit. OB Visit ADONIS Calculator Estimated Delivery Date Method Current WG Current Estimate 06/26/25 Ultrasound #1 38w 2d Expected Delivery Route/Plan Labor Preferences- CB/BF classes: no labor support person: Subhash labor intervention preferences: [] pain management options preferred: probable epidural cut cord/dad catch: cord : yes PP control planned: discussed discussed possible routes of delivery and associated risks: [] special requests: [] Specific Issue/Plans Covid status: [] Flu vaccine: [] Tdap vaccine: declines Rhogam: NA LARC form signed: yes movement and labor precautions reviewed. Problem list reviewed and updated with the most current plan of care details and appropriate orders placed. Relevant counseling for the gestational age provided. Continue routine care and follow up unless otherwise noted in visit notes/problem list details Initial Weight: Not Recorded Date -???-???-???-???-???-?? ?-???-???-???-???-???-? ??- EGA Weight BP Urine Prot -???-???-???-???-???-?? ?-???-???-???-???-???-? ??- Glucose FHR FuHt Pres Dilation -???-???-???-???-???-?? ?-???-???-???-???-???-? ??- Effaced St Visit Note 11/25/24 -???-???-???-???-???-?? ?-???-???-???-???-???-? ??- 9w 4d 159 lb 4 oz 111/7 (more content not included)... Normal [facility] Back Maker Office Visit Reporton 06-05-2025 Back Maker Office Visit Report [facility] [address], [address] [place] [address] OFFICE VISIT Date of Service: 06/05/25 MR#: [id number] Acct: [id number] Name: MICHELINE PERALES Rep #: [id number] : 2000 Provider: Dr. Rocio hoang MD Age/Sex: 25/F Location: [facility] Status: Signed Intake Vital Signs 05/18/25 09:56 05/31/25 09:27 06/05/25 08:45 06/05/25 08:46 Height 5 ft 1 in 5 ft 1 in 5 ft 1 in 5 ft 1 in Weight: 189 lb BMI 35.6 BP 106/73 Intake Visit Reasons: 37 WK OB Wagon Driver Required: No Is patient in pain?: No Allergies No Known Allergies Allergy (Verified 06/05/25 08:45) Medications ???Medication ???Instructions ???Recorded ???Confirmed ???Type Lacto-B.anim,bifid-inul in 50 2 cap PO DAILY 11/04/24 06/05/25 H istory billion cell-50 mg capsule,delay release (Fortify Probiotic) magnesium 200 mg tablet 400 mg PO QDAY 11/04/24 06/05/25 H istory vitamin B complex 1 tab PO QDAY 11/04/24 06/05/25 Hi story ferrous sulfate 27 mg iron tablet 27 mg PO QDAY 04/05/25 06/05/25 H istory levothyroxine 75 mcg capsule 75 mcg PO QDAY #30 caps 04/20/25 0 06/05/25 Rx Last Menstrual Period: 04/30/24 Zika: Zika virus screening: Negative : No Have you fallen in the past year?: No PFSH PFSH Medical History 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 Wears glasses Thyroid disease Headache Shortness of breath on exertion Leg cramps Non-smoker History of irregular heartbeat Vaginal pain Pelvic pain Vaginal delivery Thyroid disorder Hypothyroidism affecting No significant medical problems Acute appendicitis Abdominal pain Surgical History Status post dilatation and curettage History of laparoscopic appendectomy ( 02/2019) Family History Brother Cancer, Onset Age: 16 Acute lymphocytic Leukemia Social History adopted: No household members: spouse and children housing: house number of children: 1 current occupational status: unemployed current occupation: [employer] pets and animals: No history of recent travel: No sexually active: Yes Smoking Status: Never smoker second hand exposure: No alcohol intake: never substance use type: does not use diet: other well-balanced diet: daily or most days caffeine: No eating out: rarely or never during the past year weight has: remained stable what type of physical activity do you participate in: none radha/mormonism: None seatbelt use: always do you feel safe at home: Yes additional social history: [employer] History 3 Elective abortions Hx Para 1 Spontaneous abortions 1 Hx # Term Pregnancies Ectopic pregnancies Hx # Pregnancies Multiple births # of living children 1 Past Pregnancies Del. Date Name GA/Weeks Outcome Route Bth Weight Infant Gen Labor Lgth Anesthesia Del Locatn Provider FOB Unknown December 2022 spontaneous 12/17/21 Romario 39 live - full term 7lbs 3oz Male epidural [facility] V grahamvitaly Quiroz Subhash Delivery Date: Last Updated by: Eileen Lomas SM Delivery Date: 12/17/21 Last Updated by: Christina KING HPI 37 WK OB Details: MICHELINE PERALES is a 25 year old who presents for routine OB visit. OB Visit ADONIS Calculator Estimated Delivery Date Method Current WG Current Estimate 06/26/25 Ultrasound #1 37w 0d Expected Delivery Route/Plan Labor Preferences- CB/BF classes: no labor support person: Subhash labor intervention preferences: [] pain management options preferred: probable epidural cut cord/dad catch: cord : yes PP control planned: discussed discussed possible routes of delivery and associated risks: [] special requests: [] Specific Issue/Plans Covid status: [] Flu vaccine: [] Tdap vaccine: declines Rhogam: NA LARC form signed: yes movement and labor precautions reviewed. Problem list reviewed and updated with the most current plan of care details and appropriate orders placed. Relevant counseling for the gestational age provided. Continue routine care and follow up unless otherwise noted in visit notes/problem list details Initial Weight: Not Recorded Date -???-???-???-???-???-?? ?-???-???-???-???-???-? ??- EGA Weight BP Urine Prot -???-???-???-???-???-?? ?-???-???-???-???-???-? ??- Glucose FHR FuHt Pres Dilation -???-???-???-???-???-?? ?-???-???-???-???-???-? ??- Effaced St Visit Note 11/25/24 -???-???-???-???-???-?? ?-???-???-???-???-???-? ?? (more content not included)... Normal [facility] Rule out Beta Strep (Grp. B) on 06-02-2025 LISA Group B Beta Streptococcus is not isolated. Normal [facility] Comment on above: Performed By: #### M [id number] #### [facility] [place], [address] Laboratory - Chemistry and C hemistry - challengeOrdered By: Rocio Persaud on 05-31-2025 Glucose Ql (U) Negative [facility] - UrinalysisOrder ed By: Rocio Persaud on 05-31-2025 Protein Ql (U) Negative [facility] Back Maker Office Visit Reporton 05-31-2025 Back Maker Office Visit Report [facility] [address] [place] [address], [address] [place] [address] OFFICE VISIT Date of Service: 05/31/25 MR#: [id number] Acct: [id number] Name: MICHELINE PERALES Rep #: [id number] : 2000 Provider: Dr. Rocio hoang MD Age/Sex: 25/F Location: [facility] Status: Signed Intake Vital Signs 04/20/25 09:21 05/18/25 09:56 05/31/25 09:25 05/31/25 09:27 Height 5 ft 1 in 5 ft 1 in 5 ft 1 in 5 ft 1 in Weight: 188 lb 3 oz BMI 35.5 BP 130/77 H Intake Visit Reasons: 36 wk ob Chief Complaint: 36wk OB Wagon Driver Required: No Is patient in pain?: No Allergies No Known Allergies Allergy (Verified 05/31/25 09:23) Medications ???Medication ???Instructions ???Recorded ???Confirmed ???Type Lacto-B.anim,bifid-inul in 50 2 cap PO DAILY 11/04/24 05/31/25 H istory billion cell-50 mg capsule,delay release (Fortify Probiotic) magnesium 200 mg tablet 400 mg PO QDAY 11/04/24 05/31/25 H istory vitamin B complex 1 tab PO QDAY 11/04/24 05/31/25 Hi story ferrous sulfate 27 mg iron tablet 27 mg PO QDAY 04/05/25 05/31/25 H istory levothyroxine 75 mcg capsule 75 mcg PO QDAY #30 caps 04/20/25 0 05/31/25 Rx Last Menstrual Period: 04/30/24 : No Have you fallen in the past year?: No PFSH PFSH Medical History 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 Wears glasses Thyroid disease Headache Shortness of breath on exertion Leg cramps Non-smoker History of irregular heartbeat Vaginal pain Pelvic pain Vaginal delivery Thyroid disorder Hypothyroidism affecting No significant medical problems Acute appendicitis Abdominal pain Surgical History Status post dilatation and curettage History of laparoscopic appendectomy ( 02/2019) Family History Brother Cancer, Onset Age: 16 Acute lymphocytic Leukemia Social History adopted: No household members: spouse and children housing: house number of children: 1 current occupational status: unemployed current occupation: [employer] pets and animals: No history of recent travel: No sexually active: Yes Smoking Status: Never smoker second hand exposure: No alcohol intake: never substance use type: does not use diet: other well-balanced diet: daily or most days caffeine: No eating out: rarely or never during the past year weight has: remained stable what type of physical activity do you participate in: none radha/mormonism: None seatbelt use: always do you feel safe at home: Yes additional social history: [employer] History 3 Elective abortions Hx Para 1 Spontaneous abortions 1 Hx # Term Pregnancies Ectopic pregnancies Hx # Pregnancies Multiple births # of living children 1 Past Pregnancies Del. Date Name GA/Weeks Outcome Route Bth Weight Infant Gen Labor Lgth Anesthesia Del Locatn Provider FOB Unknown December 2022 spontaneous 12/17/21 Romario 39 live - full term 7lbs 3oz Male epidural [facility] V graham Quiroz Subhash Delivery Date: Last Updated by: Eileen Lomas Delivery Date: 12/17/21 Last Updated by: Christina KING HPI 36 wk ob Details: MICHELINE PERALES is a 25 year old who presents for routine OB visit. OB Visit ADONIS Calculator Estimated Delivery Date Method Current WG Current Estimate 06/26/25 Ultrasound #1 36w 2d Expected Delivery Route/Plan Labor Preferences- CB/BF classes: no labor support person: Subhash labor intervention preferences: [] pain management options preferred: probable epidural cut cord/dad catch: cord : yes PP control planned: discussed discussed possible routes of delivery and associated risks: [] special requests: [] Specific Issue/Plans Covid status: [] Flu vaccine: [] Tdap vaccine: declines Rhogam: NA LARC form signed: yes movement and labor precautions reviewed. Problem list reviewed and updated with the most current plan of care details and appropriate orders placed. Relevant counseling for the gestational age provided. Continue routine care and follow up unless otherwise noted in visit notes/problem list details Initial Weight: Not Recorded Date -???-???-???-???-???-?? ?-???-???-???-???-???-? ??- EGA Weight BP Urine Prot -???-???-???-???-???-?? ?-???-???-???-???-???-? ??- Glucose FHR FuHt Pres Dilation -???-???-???-???-???-?? ?-???-???-???-???-???-? ??- Effaced St Visit Note 11/25/24 -???-???-???-???-???-?? ?-???-???-???-???-???-? ??- 9w 4d (more content not included)... Normal [facility] Screening beta-hemolytic Str eptococcus cultureOrdered By: Rocio Persaud on 05-31-2025 Beta-hemolytic Streptococcus culture Group B Beta Streptococcus is not isolated. [facility] - Chemistry and C hemistry - challengeOrdered By: Mariana Acosta on 05-18-2025 Glucose Ql (U) Negative [facility] - UrinalysisOrder ed By: Mariana Acosta on 05-18-2025 Protein Ql (U) Negative [facility] Back Maker Office Visit Reporton 05-18-2025 Back Maker Office Visit Report [facility] [address], [address] [place] [address] OFFICE VISIT Date of Service: 05/18/25 MR#: [id number] Acct: [id number] Name: MICHELINE PERALES Rep #: [id number] : 2000 Provider: SANTIAGO leiva Age/Sex: 25/F Location: [facility] Status: Signed Intake Vital Signs 04/20/25 09:21 05/01/25 14:02 05/18/25 09:52 05/18/25 09:56 Height 5 ft 1 in 5 ft 1 in 5 ft 1 in 5 ft 1 in Weight: 185 lb 1 oz BMI 34.9 BP 106/67 Intake Visit Reasons: 34 wk ob Chief Complaint: 34 Week OB Wagon Driver Required: No Is patient in pain?: No Allergies No Known Allergies Allergy (Verified 05/18/25 09:52) Medications ???Medication ???Instructions ???Recorded ???Confirmed ???Type Lacto-B.anim,bifid-inul in 50 2 cap PO DAILY 11/04/24 05/18/25 H istory billion cell-50 mg capsule,delay release (Fortify Probiotic) magnesium 200 mg tablet 400 mg PO QDAY 11/04/24 05/18/25 H istory vitamin B complex 1 tab PO QDAY 11/04/24 05/18/25 Hi story ferrous sulfate 27 mg iron tablet 27 mg PO QDAY 04/05/25 05/18/25 H istory levothyroxine 75 mcg capsule 75 mcg PO QDAY #30 caps 04/20/25 0 05/18/25 Rx Last Menstrual Period: 04/30/24 Zika: Zika virus screening: Negative : No PFSH PFSH Medical History 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 Wears glasses Thyroid disease Headache Shortness of breath on exertion Leg cramps Non-smoker History of irregular heartbeat Vaginal pain Pelvic pain Vaginal delivery Thyroid disorder Hypothyroidism affecting No significant medical problems Acute appendicitis Abdominal pain Surgical History Status post dilatation and curettage History of laparoscopic appendectomy ( 02/2019) Family History Brother Cancer, Onset Age: 16 Acute lymphocytic Leukemia Social History adopted: No household members: spouse and children housing: house number of children: 1 current occupational status: unemployed current occupation: [employer] pets and animals: No history of recent travel: No sexually active: Yes Smoking Status: Never smoker second hand exposure: No alcohol intake: never substance use type: does not use diet: other well-balanced diet: daily or most days caffeine: No eating out: rarely or never during the past year weight has: remained stable what type of physical activity do you participate in: none radha/mormonism: None seatbelt use: always do you feel safe at home: Yes additional social history: [employer] History 3 Elective abortions Hx Para 1 Spontaneous abortions 1 Hx # Term Pregnancies Ectopic pregnancies Hx # Pregnancies Multiple births # of living children 1 Past Pregnancies Del. Date Name GA/Weeks Outcome Route Bth Weight Infant Gen Labor Lgth Anesthesia Del Locatn Provider FOB Unknown December 2022 spontaneous 12/17/21 Romario 39 live - full term 7lbs 3oz Male epidural [facility] V graham Marcialmegan Subhash Delivery Date: Last Updated by: Eileen Lomas SM Delivery Date: 12/17/21 Last Updated by: Christina KING HPI 34 wk ob Details: MICHELINE PERALES is a 25 year old who presents for routine OB visit. OB Visit ADONIS Calculator Estimated Delivery Date Method Current WG Current Estimate 06/26/25 Ultrasound #1 34w 3d Expected Delivery Route/Plan Labor Preferences- CB/BF classes: no labor support person: Subhash labor intervention preferences: [] pain management options preferred: probable epidural cut cord/dad catch: cord : yes PP control planned: discussed discussed possible routes of delivery and associated risks: [] special requests: [] Specific Issue/Plans Covid status: [] Flu vaccine: [] Tdap vaccine: declines Rhogam: NA LARC form signed: yes movement and labor precautions reviewed. Problem list reviewed and updated with the most current plan of care details and appropriate orders placed. Relevant counseling for the gestational age provided. Continue routine care and follow up unless otherwise noted in visit notes/problem list details Initial Weight: Not Recorded Date -???-???-???-???-???-?? ?-???-???-???-???-???-? ??- EGA Weight BP Urine Prot -???-???-???-???-???-?? ?-???-???-???-???-???-? ??- Glucose FHR FuHt Pres Dilation -???-???-???-???-???-?? ?-???-???-???-???-???-? ??- Effaced St Visit Note 11/25/24 -???-???-???-???-???-?? ?-???-???-???-???-???-? (more content not included)... Normal [facility] Laboratory - Chemistry and C hemistry - challengeOrdered By: Jacinta Rojas on 05-01-2025 Glucose Ql (U) Negative [facility] - UrinalysisOrder ed By: Jacinta Rojas on 05-01-2025 Protein Ql (U) Negative [facility] Back Maker Office Visit Reporton 05-01-2025 Back Maker Office Visit Report [facility] [address], [address] [place] [address] OFFICE VISIT Date of Service: 05/01/25 MR#: [id number] Acct: [id number] Name: MICHELINE PERALES Rep #: [id number] : 2000 Provider: BRAN Forrester ams Age/Sex: 25/F Location: [facility] Status: Signed Intake Vital Signs 04/20/25 09:21 04/20/25 13:17 05/01/25 14:02 Height 5 ft 1 in 5 ft 1 in 5 ft 1 in Weight: 180 lb 9 oz BMI 34.1 BP 116/78 Intake Visit Reasons: 32wk OB Wagon Driver Required: No Is patient in pain?: No Allergies No Known Allergies Allergy (Verified 05/01/25 14:01) Medications ???Medication ???Instructions ???Recorded ???Confirmed ???Type Lacto-B.anim,bifid-inul in 50 2 cap PO DAILY 11/04/24 05/01/25 H istory billion cell-50 mg capsule,delay release (Fortify Probiotic) magnesium 200 mg tablet 400 mg PO QDAY 11/04/24 05/01/25 H istory vitamin B complex 1 tab PO QDAY 11/04/24 05/01/25 Hi story ferrous sulfate 27 mg iron tablet 27 mg PO QDAY 04/05/25 05/01/25 H istory levothyroxine 75 mcg capsule 75 mcg PO QDAY #30 caps 04/20/25 0 05/01/25 Rx Last Menstrual Period: 04/30/24 Zika: Zika virus screening: Negative : Yes Have you fallen in the past year?: No PFSH PFSH Medical History 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 Wears glasses Thyroid disease Headache Shortness of breath on exertion Leg cramps Non-smoker History of irregular heartbeat Vaginal pain Pelvic pain Vaginal delivery Thyroid disorder Hypothyroidism affecting No significant medical problems Acute appendicitis Abdominal pain Surgical History Status post dilatation and curettage History of laparoscopic appendectomy ( 02/2019) Family History Brother Cancer, Onset Age: 16 Acute lymphocytic Leukemia Social History adopted: No household members: spouse and children housing: house number of children: 1 current occupational status: unemployed current occupation: [employer] pets and animals: No history of recent travel: No sexually active: Yes Smoking Status: Never smoker second hand exposure: No alcohol intake: never substance use type: does not use diet: other well-balanced diet: daily or most days caffeine: No eating out: rarely or never during the past year weight has: remained stable what type of physical activity do you participate in: none radha/mormonism: None seatbelt use: always do you feel safe at home: Yes additional social history: [employer] History 3 Elective abortions Hx Para 1 Spontaneous abortions 1 Hx # Term Pregnancies Ectopic pregnancies Hx # Pregnancies Multiple births # of living children 1 Past Pregnancies Del. Date Name GA/Weeks Outcome Route Bth Weight Infant Gen Labor Lgth Anesthesia Del Locatn Provider FOB Unknown December 2022 spontaneous 12/17/21 Romario 39 live - full term 7lbs 3oz Male epidural [facility] V graham Velde Subhash Delivery Date: Last Updated by: Eileen Lomas SM Delivery Date: 12/17/21 Last Updated by: Christina KING HPI 32wk OB Details: MICHELINE PERALES is a 25 year old who presents for routine OB visit. OB Visit ADONIS Calculator Estimated Delivery Date Method Current WG Current Estimate 06/26/25 Ultrasound #1 32w 0d Expected Delivery Route/Plan Labor Preferences- CB/BF classes: no labor support person: Subhash labor intervention preferences: [] pain management options preferred: probable epidural cut cord/dad catch: cord : yes PP control planned: discussed discussed possible routes of delivery and associated risks: [] special requests: [] Specific Issue/Plans Covid status: [] Flu vaccine: [] Tdap vaccine: declines Rhogam: NA LARC form signed: yes movement and labor precautions reviewed. Problem list reviewed and updated with the most current plan of care details and appropriate orders placed. Relevant counseling for the gestational age provided. Continue routine care and follow up unless otherwise noted in visit notes/problem list details Initial Weight: Not Recorded Date -???-???-???-???-???-?? ?-???-???-???-???-???-? ??- EGA Weight BP Urine Prot -???-???-???-???-???-?? ?-???-???-???-???-???-? ??- Glucose FHR FuHt Pres Dilation -???-???-???-???-???-?? ?-???-???-???-???-???-? ??- Effaced St Visit Note 11/25/24 -???-???-???-???-???-?? ?-???-???-???-???-???-? ??- 9w 4d 159 lb 4 oz 111/76 -???-? (more content not included)... Normal [facility] - Chemistry and C hemistry - challengeOrdered By: Rocio Persaud on 04-20-2025 Glucose Ql (U) Negative [facility] - UrinalysisOrder ed By: Rocio Persaud on 04-20-2025 Protein Ql (U) Negative [facility] Back Maker Office Visit Reporton 04-20-2025 Back Maker Office Visit Report [facility] [address], [address] [place] [address] OFFICE VISIT Date of Service: 04/20/25 MR#: [id number] Acct: [id number] Name: MICHELINE PERALES Rep #: [id number] : 2000 Provider: Dr. Rocio hoang MD Age/Sex: 25/F Location: [facility] Status: Signed Intake Vital Signs 02/16/25 09:48 04/05/25 10:02 04/20/25 09:19 04/20/25 09:21 Height 5 ft 1 in 5 ft 1 in 5 ft 1 in 5 ft 1 in Weight: 177 lb 1 oz BMI 33.4 BP 100/65 Intake Visit Reasons: 30 wk ob Wagon Driver Required: No Is patient in pain?: No Allergies No Known Allergies Allergy (Verified 04/20/25 09:18) Medications ???Medication ???Instructions ???Recorded ???Confirmed ???Type Lacto-B.anim,bifid-inul in 50 2 cap PO DAILY 11/04/24 04/20/25 H istory billion cell-50 mg capsule,delay release (Fortify Probiotic) magnesium 200 mg tablet 400 mg PO QDAY 11/04/24 04/20/25 H istory vitamin B complex 1 tab PO QDAY 11/04/24 04/20/25 Hi story ferrous sulfate 27 mg iron tablet 27 mg PO QDAY 04/05/25 04/20/25 H istory levothyroxine 37.5 mcg capsule 37.5 mcg PO QDAY #30 caps 04/20/25 04/20/25 Rx metronidazole 500 mg tablet 500 mg PO BID 7 days #14 tabs 04/0704/20/25 Rx Last Menstrual Period: 04/30/24 Zika: [facility]: [facility] 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 Wears glasses Thyroid disease Headache Shortness of breath on exertion Leg cramps Non-smoker History of irregular heartbeat Vaginal pain Pelvic pain Vaginal delivery Thyroid disorder Hypothyroidism affecting No significant medical problems Acute appendicitis Abdominal pain Surgical History Status post dilatation and curettage History of laparoscopic appendectomy ( 02/2019) Family History Brother Cancer, Onset Age: 16 Acute lymphocytic Leukemia Social History adopted: No household members: spouse and children housing: house number of children: 1 current occupational status: unemployed current occupation: [employer] pets and animals: No history of recent travel: No sexually active: Yes Smoking Status: Never smoker second hand exposure: No alcohol intake: never substance use type: does not use diet: other well-balanced diet: daily or most days caffeine: No eating out: rarely or never during the past year weight has: remained stable what type of physical activity do you participate in: none radha/mormonism: None seatbelt use: always do you feel safe at home: Yes additional social history: [employer] History 3 Elective abortions Hx Para 1 Spontaneous abortions 1 Hx # Term Pregnancies Ectopic pregnancies Hx # Pregnancies Multiple births # of living children 1 Past Pregnancies Del. Date Name GA/Weeks Outcome Route Bth Weight Gen Labor Lgth Anesthesia Del Locatn Provider FOB Unknown December 2022 spontaneous 12/17/21 Romario 39 live - full term 7lbs 3oz Male epidural [facility] V graham Velde Subhash Delivery Date: Last Updated by: Eileen Lomas Delivery Date: 12/17/21 Last Updated by: Christina KING HPI 30 wk ob Details: MICHELINE PERALES is a 25 year old who presents for routine OB visit. OB Visit ADONIS Calculator Estimated Delivery Date Method Current WG Current Estimate 06/26/25 Ultrasound #1 30w 3d Expected Delivery Route/Plan Labor Preferences- CB/BF classes: no labor support person: Subhash labor intervention preferences: [] pain management options preferred: probable epidural cut cord/dad catch: cord : yes PP control planned: discussed discussed possible routes of delivery and associated risks: [] special requests: [] Specific Issue/Plans Covid status: [] Flu vaccine: [] Tdap vaccine: declines Rhogam: NA LARC form signed: yes movement and labor precautions reviewed. Problem list reviewed and updated with the most current plan of care details and appropriate orders placed. Relevant counseling for the gestational age provided. Continue routine care and follow up unless otherwise noted in visit notes/problem list details Initial Weight: Not Recorded Date -???-???-???-???-???-?? ?-???-???-???-???-???-? ??- EGA Weight BP Urine Prot -???-???-???-???-???-?? ?-???-???-???-???-???-? ??- Glucose FHR FuHt Pres Dilation -???-???-???-???-???-?? ?-???-???-???-???-???-? ??- Effaced St Visit Note 11/25/24 -???-???-??? (more content not included)... Normal [facility] T4 Free Directon 04-20-2025 T4 FREE DIRECT 0.80 ng/dL Normal 0.76-1.46 [facility] Comment on above: Performed By: #### L 506.0400, L501.9520 ####[facility] [id number] [place], [address] T4 freeOrdered By: Mariana mcbride on 04-20-2025 Free T4 [Mass/Vol] 0.80 ng/dL 0.76-1.46 [facility] TSH DL <= 0.005 mIU/L QnOrde red By: Mariana Acosta on 04-20-2025 TSH Qn 3.700 uIU/mL 0.300-4.200 [facility] Thyroid Stim Hormone (TSH)on 04-20-2025 TSH 3.700 uIU/mL Normal 0.300-4.200 [facility] Comment on above: Performed By: #### L 506.0400, L501.9520 ####[facility] [id number] [place], [address] Absolute lymphocyte countOrd ered By: Jacinta Rojas on 04-05-2025 Lymphocytes Auto (Unsp spec) [#/Vol] 1.70 10*3/uL 0.83-4.51 [facility] Absolute neutrophil countOrd ered By: Jacinta Rojas on 04-05-2025 Neutrophils (Bld) [#/Vol] 7.6 10*3/uL 2.0-7.7 [facility] Automated lymphocyte count a s percentage of total leukocytesOrdered By: Jacinta Rojas on 04-05-2025 Lymphocytes/100 WBC Auto (Unsp spec) 16.9 % Low 19-41 [facility] Basophil percentageOrdered B y: Jacinta Rojas on 04-05-2025 Basophils/100 WBC (Bld) 0.2 % 0-1 [facility] CBC W/Diff, Automatedon 03-09 Absolute Lymph 1.70 X10 3/uL Normal 0.83-4.51 [facility] Comment on above: Performed By: #### L 3890.6006, L509.8002, L100.0100, L501.0250 #### [facility] [address] [place], [address] Absolute Neut 7.6 X10 3/uL Normal 2.0-7.7 [facility] Comment on above: Performed By: #### L 3890.6006, L509.8002, L100.0100, L501.0250 #### [facility] [address] [place], [address] Basophils/100 WBC (Bld) 0.2 % Normal 0-1 [facility] Comment on above: Performed By: #### L 3890.6006, L509.8002, L100.0100, L501.0250 #### [facility] [address] [place], [address] Eosinophils/100 WBC (Bld) 0.7 % Normal 0-5 [facility] Comment on above: Performed By: #### L 3890.6006, L509.8002, L100.0100, L501.0250 #### [facility] [address] [place], [address] Erythrocyte distribution width (RBC) [Ratio] 13.7 % Normal 11.6-14.6 [facility] Comment on above: Performed By: #### L 3890.6006, L509.8002, L100.0100, L501.0250 #### [facility] [address] [place], [address] Hematocrit (Bld) [Volume fraction] 35.7 % Low 37-47 [facility] Comment on above: Performed By: #### L 3890.6006, L509.8002, L100.0100, L501.0250 #### [facility] [address] [place], [address] Hemoglobin (Bld) [Mass/Vol] 12.1 g/dL Normal 12.0-15.0 [facility] Comment on above: Performed By: #### L 3890.6006, L509.8002, L100.0100, L501.0250 #### [facility] [address] [place], [address] IG% 1.000 High 0.0-0.9 [facility] Comment on above: Result Comment: IG% - Immature Granulocytes (promyelocytes, myelocytes and metamyelocytes) > 1% indicates that a LEFT SHIFT is Present. Performed By: #### L 3890.6006, L509.8002, L100.0100, L501.0250 #### [facility] [address] [place], [address] Lymphocytes/100 WBC (Bld) 16.9 % Low 19-41 [facility] Comment on above: Performed By: #### L 3890.6006, L509.8002, L100.0100, L501.0250 #### [facility] [address] [place], [address] MCH (RBC) [Entitic mass] 31.3 pg Normal 27.0-32.0 [facility] Comment on above: Performed By: #### L 3890.6006, L509.8002, L100.0100, L501.0250 #### [facility] [address] [place], [address] MCHC (RBC) [Mass/Vol] 33.9 g/dL Normal 32-36 [facility] Comment on above: Performed By: #### L 3890.6006, L509.8002, L100.0100, L501.0250 #### [facility] [address] [place], [address] MCV (RBC) [Entitic vol] 92.2 fL Normal 81-99 [facility] Comment on above: Performed By: #### L 3890.6006, L509.8002, L100.0100, L501.0250 #### [facility] [address] [place], [address] Monocytes/100 WBC (Bld) 6.3 % Normal 0-10 [facility] Comment on above: Performed By: #### L 3890.6006, L509.8002, L100.0100, L501.0250 #### [facility] [address] [place], [address] Neutrophils/100 WBC (Bld) 74.9 % High 47-70 [facility] Comment on above: Performed By: #### L 3890.6006, L509.8002, L100.0100, L501.0250 #### [facility] [address] [place], [address] Nucleated RBC (Bld) [#/Vol] 0 10*3/uL Normal 0-5 [facility] Comment on above: Performed By: #### L 3890.6006, L509.8002, L100.0100, L501.0250 #### [facility] [address] [place], [address] Platelet mean volume (Bld) [Entitic vol] 10.4 fL Normal 6.2-12.0 [facility] Comment on above: Performed By: #### L 3890.6006, L509.8002, L100.0100, L501.0250 #### [facility] [address] [place], [address] Platelets (Bld) [#/Vol] 212 10*3/uL Normal 150-450 [facility] Comment on above: Performed By: #### L 3890.6006, L509.8002, L100.0100, L501.0250 #### [facility] [address] [place], [address] RBC (Bld) [#/Vol] 3.87 10*6/uL Low 4.2-5.4 [facility] Comment on above: Performed By: #### L 3890.6006, L509.8002, L100.0100, L501.0250 #### [facility] [address] [place], [address] RDW SD 46.4 fl High 35.1-43.9 [facility] Comment on above: Performed By: #### L 3890.6006, L509.8002, L100.0100, L501.0250 #### [facility] [address] [place], [address] WBC (Bld) [#/Vol] 10.1 10*3/uL Normal 4.4-11.0 [facility] Comment on above: Performed By: #### L 3890.6006, L509.8002, L100.0100, L501.0250 #### [facility] [address] [place], [address] Eosinophil percentageOrdered By: Jacinta Rojas on 04-05-2025 Eosinophils/100 WBC (Bld) 0.7 % 0-5 [facility] Erythrocyte distribution wid th ratioOrdered By: Jacinta Rojas on 04-05-2025 Erythrocyte distribution width (RBC) [Ratio] 13.7 % 11.6-14.6 [facility] Erythrocyte distribution wid th standard deviationOrdered By: Jacinta Rojas on 04-05-2025 Erythrocyte distribution width (RBC) [Ratio] 46.4 fl High 35.1-43.9 [facility] Glucose Challenge Gest 1H 50 haroldo 04-05-2025 GLU GEST 50g 1H 111 mg/dL Normal 70-140 [facility] Comment on above: Performed By: #### L 3890.6006, L509.8002, L100.0100, L501.0250 #### [facility] [address] [facility] [address] [place], [place], [id number] Glucose measurement at 2 ana rs post-dose gestational glucose tolerance testOrdered By: Jacinta Rojas on 04-05-2025 Glucose [Mass/Vol] 111 mg/dL 70-140 [facility] HIVon 04-05-2025 HIV Non-Reactive Normal Nonreactive [facility] Comment on above: Result Comment: Non- Reactive Reactive Repeatedly reactive samples must be confirmed according to CDC recommended confirmatory algorithms. The subresults for either HIVAG or AHIV can be used as an aid in the selection of the confirmation algorithm for reactive samples. Send out specimens with Reactive results to [facility] for confirmation. Order the HIV antibody detection and differentiation: lc#[id number] Performed By: #### L 3890.6006, L509.8002, L100.0100, L501.0250 ####[facility] [address] [place], [address] Hematocrit Auto (Bld) [Volum e fraction]Ordered By: Jacinta Rojas on 04-05-2025 Hematocrit (Bld) [Volume fraction] 35.7 % Low 37-47 [facility] Hemoglobin measurementOrdere d By: Jacinta Rojas on 04-05-2025 Hemoglobin (Bld) [Mass/Vol] 12.1 g/dL 12.0-15.0 [facility] Immature granulocytes/100 WB C Auto (Bld)Ordered By: Jacinta Rojas on 04-05-2025 Immature granulocytes/100 WBC (Bld) 1.000 % High 0.0-0.9 [facility] Comment on above: IG% - Immature Granu locytes (promyelocytes, myelocytes and metamyelocytes) > 1% indicates that a LEFT SHIFT is Present. Laboratory - Chemistry and C hemistry - challengeOrdered By: Mariana Acosta on 04-05-2025 Glucose Ql (U) Negative [facility] - UrinalysisOrder ed By: Mariana Acosta on 04-05-2025 Protein Ql (U) Negative [facility] MCV (mean corpuscular volume ) determinationOrdered By: Jacinta Rojas on 04-05-2025 MCV (RBC) [Entitic vol] 92.2 fL 81-99 [facility] Mean corpuscular hemoglobin (MCH) determinationOrdered By: Jacinta Rojas on 04-05-2025 MCH (RBC) [Entitic mass] 31.3 pg 27.0-32.0 [facility] Mean corpuscular hemoglobin concentration (MCHC) determinationOrdered By: Jacinta Rojas on 04-05-2025 MCHC (RBC) [Mass/Vol] 33.9 g/dL 32-36 [facility] Mean platelet volume determi nationOrdered By: Jacinta Rojas on 04-05-2025 Platelet mean volume (Bld) [Entitic vol] 10.4 fL 6.2-12.0 [facility] Monocyte percentageOrdered B y: Jacinta Rojas on 04-05-2025 Monocytes/100 WBC (Bld) 6.3 % 0-10 [facility] Neutrophil percentageOrdered By: Jacinta Rojas on 04-05-2025 Neutrophils/100 WBC (Bld) 74.9 % High 47-70 [facility] No Panel InformationOrdered By: Jacinta Rojas on 04-05-2025 HIV (1&2) Antibody Non-Reactive Nonreactive [facility] Comment on above: Non-ReactiveReactive Repeatedly reactive samples must be confirmed according to CDC recommended confirmatory algorithms. The subresults for either HIVAG or AHIV can be used as an aid in the selection of the confirmation algorithm for reactive samples.Send out specimens with Reactive results to [facility] for confirmation.Order the HIV antibody detection and differentiation: #[id number] Nucleated red blood cell per centageOrdered By: Jacinta Rojas on 04-05-2025 Nucleated RBC/100 WBC (Bld) [Ratio] 0 % 0-5 [facility] Back Maker Office Visit Reporton 04-05-2025 Back Maker Office Visit Report [facility]'[address], [address] [place] [address] OFFICE VISIT Date of Service: 04/05/25 MR#: [id number] Acct: [id number] Name: MICHELINE PERALES Rep #: [id number] : 2000 Provider: SANTIAGO leiva Age/Sex: 24/F Location: [facility] [place] Status: Signed Intake Vital Signs 01/18/25 13:04 03/13/25 13:20 04/05/25 09:58 04/05/25 10:02 Height 5 ft 1 in 5 ft 1 in 5 ft 1 in 5 ft 1 in Weight: 174 lb 4 oz BMI 32.9 BP 104/70 Intake Visit Reasons: 28 wk ob/glucose Chief Complaint: 28 Week OB/Glucose Wagon Driver Required: No Is patient in pain?: No Allergies No Known Allergies Allergy (Verified 04/05/25 10:01) Medications ???Medication ???Instructions ???Recorded ???Confirmed ???Type Lacto-B.anim,bifid-inul in 50 2 cap PO DAILY 11/04/24 04/05/25 H istory billion cell-50 mg capsule,delay release (Fortify Probiotic) levothyroxine 37.5 mcg capsule 37.5 mcg PO QDAY 11/04/24 04/05/25 History magnesium 200 mg tablet 400 mg PO QDAY 11/04/24 04/05/25 H istory vitamin B complex 1 tab PO QDAY 11/04/24 04/05/25 Hi story ferrous sulfate 27 mg iron tablet 27 mg PO QDAY 04/05/25 04/05/25 H istory Last Menstrual Period: 04/30/24 Zika: Zika virus screening: Negative : Yes PFSH PFSH Medical History 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 Wears glasses Thyroid disease Headache Shortness of breath on exertion Leg cramps Non-smoker History of irregular heartbeat Vaginal pain Pelvic pain Vaginal delivery Thyroid disorder Hypothyroidism affecting No significant medical problems Acute appendicitis Abdominal pain Surgical History Status post dilatation and curettage History of laparoscopic appendectomy ( 02/2019) Family History Brother Cancer, Onset Age: 16 Acute lymphocytic Leukemia Social History adopted: No household members: spouse and children housing: house number of children: 1 current occupational status: unemployed current occupation: [employer] pets and animals: No history of recent travel: No sexually active: Yes Smoking Status: Never smoker second hand exposure: No alcohol intake: never substance use type: does not use diet: other well-balanced diet: daily or most days caffeine: No eating out: rarely or never during the past year weight has: remained stable what type of physical activity do you participate in: none radha/mormonism: None seatbelt use: always do you feel safe at home: Yes additional social history: [employer] History 3 Elective abortions Hx Para 1 Spontaneous abortions 1 Hx # Term Pregnancies Ectopic pregnancies Hx # Pregnancies Multiple births # of living children 1 Past Pregnancies Del. Date Name GA/Weeks Outcome Route Bth Weight Infant Gen Labor Lgth Anesthesia Del Locatn Provider FOB Unknown December 2022 spontaneous 12/17/21 Romario 39 live - full term 7lbs 3oz Male epidural [facility] V graham Velmegan Subhash Delivery Date: Last Updated by: Eileen Lomas Delivery Date: 12/17/21 Last Updated by: Christina Drew SROM HPI 28 wk ob/glucose Details: MICHELINE PERALES is a 24 year old who presents for routine OB visit. OB Visit ADONIS Calculator Estimated Delivery Date Method Current WG Current Estimate 06/26/25 Ultrasound #1 28w 2d Expected Delivery Route/Plan Labor Preferences- CB/BF classes: no labor support person: Subhash labor intervention preferences: [] pain management options preferred: probable epidural cut cord/dad catch: cord : yes PP control planned: discussed discussed possible routes of delivery and associated risks: [] special requests: [] Specific Issue/Plans Covid status: [] Flu vaccine: [] Tdap vaccine: declines Rhogam: NA LARC form signed: yes Problem list reviewed and updated with the most current plan of care details and appropriate orders placed. Relevant counseling for the gestational age provided. Continue routine care and follow up unless otherwise noted in visit notes/problem list details Initial Weight: Not Recorded Date -???-???-???-???-???-?? ?-???-???-???-???-???-? ??- EGA Weight BP Urine Prot -???-???-???-???-???-?? ?-???-???-???-???-???-? ??- Glucose FHR FuHt Pres Dilation -???-???-???-???-???-?? ?-???-???-???-???-???-? ??- Effaced St Visit Note 11/25/24 -???-???-???-???-???-?? ?-???-???-???-???-???-? ??- 9w 4d 159 lb 4 oz 1 (more content not included)... Normal [facility] Platelet countOrdered By: Azalea Rojas on 04-05-2025 Platelets (Bld) [#/Vol] 212 10*3/uL 150-450 [facility] RBC Auto (Bld) [#/Vol]Ordere d By: Jacinta Rojas on 04-05-2025 RBC (Bld) [#/Vol] 3.87 10*6/uL Low 4.2-5.4 [facility] Syphilis Antibodieson 2024 Syphilis Abs Non-Reactive Normal Nonreactive [facility] Comment on above: Performed By: #### L 3890.6006, L509.8002, L100.0100, L501.0250 #### [facility] [address] [place], [address] White blood cell (WBC) count Ordered By: Jacinta Rojas on 04-05-2025 WBC (Bld) [#/Vol] 10.1 10*3/uL 4.4-11.0 [facility] - Chemistry and C hemistry - challengeOrdered By: Jacinta Rojas on 03-13-2025 Glucose Ql (U) Negative [facility] - UrinalysisOrder ed By: Jacinta Rojas on 03-13-2025 Protein Ql (U) Negative [facility] Back Maker Office Visit Reporton 03-13-2025 Back Maker Office Visit Report [facility]'s [address], [address] [place] [address] OFFICE VISIT Date of Service: 03/13/25 MR#: [id number] Acct: [id number] Name: MICHELINE PERALES Rep #: [id number] : 2000 Provider: BRAN Forrester ams Age/Sex: 24/F Location: [facility] [place] Status: Signed Intake Vital Signs 01/18/25 13:04 02/16/25 09:48 03/13/25 13:20 Height 5 ft 1 in 5 ft 1 in 5 ft 1 in Weight: 171 lb 4 oz BMI 32.3 BP 107/71 Intake Visit Reasons: 25 wk ob Chief Complaint: 25wk OB Wagon Driver Required: No Is patient in pain?: No Allergies No Known Allergies Allergy (Verified 03/13/25 13:22) Medications ???Medication ???Instructions ???Recorded ???Confirmed ???Type Lacto-B.anim,bifid-inul in 50 2 cap PO DAILY 11/04/24 03/13/25 H istory billion cell-50 mg capsule,delay release (Fortify Probiotic) levothyroxine 37.5 mcg capsule 37.5 mcg PO QDAY 11/04/24 03/13/25 History magnesium 200 mg tablet 400 mg PO QDAY 11/04/24 03/13/25 H istory vitamin B complex 1 tab PO QDAY 11/04/24 03/13/25 Hi story Last Menstrual Period: 04/30/24 : No PFSH PFSH Medical History 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 Wears glasses Thyroid disease Headache Shortness of breath on exertion Leg cramps Non-smoker History of irregular heartbeat Vaginal pain Pelvic pain Vaginal delivery Thyroid disorder Hypothyroidism affecting No significant medical problems Acute appendicitis Abdominal pain Surgical History Status post dilatation and curettage History of laparoscopic appendectomy ( 02/2019) Family History Brother Cancer, Onset Age: 16 Acute lymphocytic Leukemia Social History adopted: No household members: spouse and children housing: house number of children: 1 current occupational status: unemployed current occupation: [employer] pets and animals: No history of recent travel: No sexually active: Yes Smoking Status: Never smoker second hand exposure: No alcohol intake: never substance use type: does not use diet: other well-balanced diet: daily or most days caffeine: No eating out: rarely or never during the past year weight has: remained stable what type of physical activity do you participate in: none radha/mormonism: None seatbelt use: always do you feel safe at home: Yes additional social history: [employer] History 3 Elective abortions Hx Para 1 Spontaneous abortions 1 Hx # Term Pregnancies Ectopic pregnancies Hx # Pregnancies Multiple births # of living children 1 Past Pregnancies Del. Date Name GA/Weeks Outcome Route Bth Weight Infant Gen Labor Lgth Anesthesia Del Locatn Provider FOB Unknown December 2022 spontaneous 12/17/21 Romario 39 live - full term 7lbs 3oz Male epidural [facility] Quiroz Subhash Delivery Date: Last Updated by: Eileen Lomas SM Delivery Date: 12/17/21 Last Updated by: Christina Russell SROM HPI 25 wk ob Details: MICHELINE PERALES is a 24 year old who presents for routine OB visit. OB Visit ADONIS Calculator Estimated Delivery Date Method Current WG Current Estimate 06/26/25 Ultrasound #1 25w 0d Expected Delivery Route/Plan Labor Preferences- CB/BF classes: [] labor support person: [] labor intervention preferences: [] pain management options preferred: [] cut cord/dad catch: [] : [] PP control planned: [] discussed possible routes of delivery and associated risks: [] special requests: [] Specific Issue/Plans Covid status: [] Flu vaccine: [] Tdap vaccine: [] Rhogam: [] LARC form signed: [] Problem list reviewed and updated with the most current plan of care details and appropriate orders placed. Relevant counseling for the gestational age provided. Continue routine care and follow up unless otherwise noted in visit notes/problem list details Initial Weight: Not Recorded Date -???-???-???-???-???-?? ?-???-???-???-???-???-? ??- EGA Weight BP Urine Prot -???-???-???-???-???-?? ?-???-???-???-???-???-? ??- Glucose FHR FuHt Pres Dilation -???-???-???-???-???-?? ?-???-???-???-???-???-? ??- Effaced St Visit Note 11/25/24 -???-???-???-???-???-?? ?-???-???-???-???-???-? ??- 9w 4d 159 lb 4 oz 111/76 -???-???-???-???-???-?? ?-???-???-???-???-???-? ??- 150 -???-???-???-???-???-?? ?-???-???-???-???-???-? ??- SM- measurin g cons with previous US 12/22/24 -???-???-???-???-???-?? ?-???-???-???-???-???-? ??- 13w 3d 157 l (more content not included)... Normal [facility] - Chemistry and C hemistry - challengeOrdered By: Mariana Acosta on 02-16-2025 Glucose Ql (U) Negative [facility] - UrinalysisOrder ed By: Mariana Acosta on 02-16-2025 Protein Ql (U) Negative [facility] Back Maker Office Visit Reporton 02-16-2025 Back Maker Office Visit Report [facility]'s [address], [address] [place] [address] OFFICE VISIT Date of Service: 02/16/25 MR#: [id number] Acct: [id number] Name: MICHELINE PERALES Rep #: [id number] : 2000 Provider: SANTIAGO leiva Age/Sex: 24/F Location[place] [facility] [place] Status: Signed Intake Vital Signs 01/18/25 13:04 02/16/25 09:48 Height 5 ft 1 in 5 ft 1 in Weight: 165 lb 4 oz BMI 31.2 BP 114/64 Intake Visit Reasons: 21 wk ob Chief Complaint: 21 Week OB Wagon Driver Required: No Is patient in pain?: No Allergies No Known Allergies Allergy (Verified 02/16/25 09:49) Medications ???Medication ???Instructions ???Recorded ???Confirmed ???Type Lacto-B.anim,bifid-inul in 50 2 cap PO DAILY 11/04/24 02/16/25 H istory billion cell-50 mg capsule,delay release (Fortify Probiotic) levothyroxine 37.5 mcg capsule 37.5 mcg PO QDAY 11/04/24 02/16/25 History magnesium 200 mg tablet 400 mg PO QDAY 11/04/24 02/16/25 H istory vitamin B complex 1 tab PO QDAY 11/04/24 02/16/25 Hi story Last Menstrual Period: 04/30/24 Zika: Zika virus screening: Negative : No PFSH PFSH Medical History 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 Wears glasses Thyroid disease Headache Shortness of breath on exertion Leg cramps Non-smoker History of irregular heartbeat Vaginal pain Pelvic pain Vaginal delivery Thyroid disorder Hypothyroidism affecting No significant medical problems Acute appendicitis Abdominal pain Surgical History Status post dilatation and curettage History of laparoscopic appendectomy ( 02/2019) Family History Brother Cancer, Onset Age: 16 Acute lymphocytic Leukemia Social History adopted: No household members: spouse and children housing: house number of children: 1 current occupational status: unemployed current occupation: [employer] pets and animals: No history of recent travel: No sexually active: Yes Smoking Status: Never smoker second hand exposure: No alcohol intake: never substance use type: does not use diet: other well-balanced diet: daily or most days caffeine: No eating out: rarely or never during the past year weight has: remained stable what type of physical activity do you participate in: none radha/mormonism: None seatbelt use: always do you feel safe at home: Yes additional social history: [employer] History 3 Elective abortions Hx Para 1 Spontaneous abortions 1 Hx # Term Pregnancies Ectopic pregnancies Hx # Pregnancies Multiple births # of living children 1 Past Pregnancies Del. Date Name GA/Weeks Outcome Route Bth Weight Gen Labor Lgth Anesthesia Del Locatn Provider FOB Unknown December 2022 spontaneous 12/17/21 Romario 39 live - full term 7lbs 3oz Male epidural [facility] V graham Quiroz Subhash Delivery Date: Last Updated by: Eileen Lomas Delivery Date: 12/17/21 Last Updated by: Christina Drew SROM HPI 21 wk ob Details: MICHELINE PERALES is a 24 year old who presents for routine OB visit. OB Visit ADONIS Calculator Estimated Delivery Date Method Current WG Current Estimate 06/26/25 Ultrasound #1 21w 3d Expected Delivery Route/Plan Labor Preferences- CB/BF classes: [] labor support person: [] labor intervention preferences: [] pain management options preferred: [] cut cord/dad catch: [] : [] PP control planned: [] discussed possible routes of delivery and associated risks: [] special requests: [] Specific Issue/Plans Covid status: [] Flu vaccine: [] Tdap vaccine: [] Rhogam: [] LARC form signed: [] Problem list reviewed and updated with the most current plan of care details and appropriate orders placed. Relevant counseling for the gestational age provided. Continue routine care and follow up unless otherwise noted in visit notes/problem list details Initial Weight: Not Recorded Date -???-???-???-???-???-?? ?-???-???-???-???-???-? ??- EGA Weight BP Urine Prot -???-???-???-???-???-?? ?-???-???-???-???-???-? ??- Glucose FHR FuHt Pres Dilation -???-???-???-???-???-?? ?-???-???-???-???-???-? ??- Effaced St Visit Note 11/25/24 -???-???-???-???-???-?? ?-???-???-???-???-???-? ??- 9w 4d 159 lb 4 oz 111/76 -???-???-???-???-???-?? ?-???-???-???-???-???-? ??- 150 -???-???-???-???-???-?? ?-???-???-???-???-???-? ??- SM- measurin g cons with previous US 12/22/24 -???-???-???-???-???-?? ? (more content not included)... Normal [facility] - Chemistry and C hemistry - challengeOrdered By: Mariana Acosta on 01-18-2025 Glucose Ql (U) Negative [facility] - UrinalysisOrder ed By: Mariana Acosta on 01-18-2025 Protein Ql (U) Negative [facility] Back Maker Office Visit Reporton 01-18-2025 Back Maker Office Visit Report [facility] [address], [address] [place] [address] OFFICE VISIT Date of Service: 01/18/25 MR#: [id number] Acct: [id number] Name: MICHELINE PERALES Rep #: [id number] : 2000 Provider: SANTIAGO leiva Age/Sex: 24/F Location: [facility] Status: Signed Intake Vital Signs 11/25/24 13:44 12/22/24 10:15 01/18/25 13:04 Height 5 ft 1 in 5 ft 1 in 5 ft 1 in Weight: 160 lb 6 oz BMI 30.2 BP 110/60 Intake Visit Reasons: 17 wk ob Chief Complaint: 17 Week OB Wagon Driver Required: No Is patient in pain?: No Allergies No Known Allergies Allergy (Verified 01/18/25 13:04) Medications ???Medication ???Instructions ???Recorded ???Confirmed ???Type Lacto-B.anim,bifid-inul in 50 2 cap PO DAILY 11/04/24 01/18/25 H istory billion cell-50 mg capsule,delay release (Fortify Probiotic) levothyroxine 37.5 mcg capsule 37.5 mcg PO QDAY 11/04/24 01/18/25 History magnesium 200 mg tablet 400 mg PO QDAY 11/04/24 01/18/25 H istory vitamin B complex 1 tab PO QDAY 11/04/24 01/18/25 Hi story Last Menstrual Period: 04/30/24 Zika: Zika virus screening: Negative : No PFSH PFSH Medical History 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 Wears glasses Thyroid disease Headache Shortness of breath on exertion Leg cramps Non-smoker History of irregular heartbeat Vaginal pain Pelvic pain Vaginal delivery Thyroid disorder Hypothyroidism affecting No significant medical problems Acute appendicitis Abdominal pain Surgical History Status post dilatation and curettage History of laparoscopic appendectomy ( 02/2019) Family History Brother Cancer, Onset Age: 16 Acute lymphocytic Leukemia Social History adopted: No household members: spouse and children housing: house number of children: 1 current occupational status: unemployed current occupation: [employer] pets and animals: No history of recent travel: No sexually active: Yes Smoking Status: Never smoker second hand exposure: No alcohol intake: never substance use type: does not use diet: other well-balanced diet: daily or most days caffeine: No eating out: rarely or never during the past year weight has: remained stable what type of physical activity do you participate in: none radha/mormonism: None seatbelt use: always do you feel safe at home: Yes additional social history: [employer] History 3 Elective abortions Hx Para 1 Spontaneous abortions 1 Hx # Term Pregnancies Ectopic pregnancies Hx # Pregnancies Multiple births # of living children 1 Past Pregnancies Del. Date Name GA/Weeks Outcome Route Bth Weight Infant Gen Labor Lgth Anesthesia Del Locatn Provider FOB Unknown December 2022 spontaneous 12/17/21 Romario 39 live - full term 7lbs 3oz Male epidural [facility] V graham Quiroz Subhash Delivery Date: Last Updated by: Eileen Lomas Delivery Date: 12/17/21 Last Updated by: Christina KING HPI 17 wk ob Details: MICHELINE PERALES is a 24 year old who presents for routine OB visit. OB Visit ADONIS Calculator Estimated Delivery Date Method Current WG Current Estimate 06/26/25 Ultrasound #1 17w 2d Expected Delivery Route/Plan Labor Preferences- CB/BF classes: [] labor support person: [] labor intervention preferences: [] pain management options preferred: [] cut cord/dad catch: [] : [] PP control planned: [] discussed possible routes of delivery and associated risks: [] special requests: [] Specific Issue/Plans Covid status: [] Flu vaccine: [] Tdap vaccine: [] Rhogam: [] LARC form signed: [] Problem list reviewed and updated with the most current plan of care details and appropriate orders placed. Relevant counseling for the gestational age provided. Continue routine care and follow up unless otherwise noted in visit notes/problem list details Initial Weight: Not Recorded Date -???-???-???-???-???-?? ?-???-???-???-???-???-? ??- EGA Weight BP Urine Prot -???-???-???-???-???-?? ?-???-???-???-???-???-? ??- Glucose FHR FuHt Pres Dilation -???-???-???-???-???-?? ?-???-???-???-???-???-? ??- Effaced St Visit Note 11/25/24 -???-???-???-???-???-?? ?-???-???-???-???-???-? ??- 9w 4d 159 lb 4 oz 111/76 -???-???-???-???-???-?? ?-???-???-???-???-???-? ??- 150 -???-???-???-???-???-?? ?-???-???-???-???-???-? ??- SM- measurin g cons with previous US 12/22/24 (more content not included)... Normal [facility] Misc.on 12-29-2024 [facility] Misc. [address] [facility] Comment on above: Order Comment: [id number] TSH R AB SERUM FZ Result Comment: Test Ordered: [id number] TSH Receptor Antibody (TBII) TSH Receptor Antibody (TBII) <0.3 U/L ES Reference Range: . Reference Range: Antibody Titer: <1.0 U/L = Negative 1.1 - 1.5 U/L = Equivocal >1.5 U/L = Positive Performed at: [facility] [address] [place] [id number] Lead Burner Supervisor: Steve Leslie MD, Phone: [phone] Performed at: [employer] [id number] Lead Burner Supervisor: Eleazar Gr PhD, Phone: [phone] Performed By: #### L 3410.9998 #### [facility] [address] [place], [place], [address] Absolute lymphocyte countOrd ered By: Rocio Persaud on 12-22-2024 Lymphocytes Auto (Unsp spec) [#/Vol] 1.49 10*3/uL 0.83-4.51 [facility] Absolute neutrophil countOrd ered By: Rocio Persaud on 12-22-2024 Neutrophils (Bld) [#/Vol] 6.0 10*3/uL 2.0-7.7 [facility] Automated lymphocyte count a s percentage of total leukocytesOrdered By: Rocio Persaud on 12-22-2024 Lymphocytes/100 WBC Auto (Unsp spec) 18.2 % Low 19-41 [facility] Basophil percentageOrdered B y: Rocio Persaud on 12-22-2024 Basophils/100 WBC (Bld) 0.2 % 0-1 [facility] CBC W/Diff, Automatedon 12-06 Absolute Lymph 1.49 X10 3/uL Normal 0.83-4.51 [facility] Comment on above: Performed By: #### B TS, L509.8002, L509.4006, L3890.6301, L3890.6102, L501.9520, L506.0400, L3890.6006, L100.0100 ####[facility] [address] [place], [address] Absolute Neut 6.0 X10 3/uL Normal 2.0-7.7 [facility] Comment on above: Performed By: #### B TS, L509.8002, L509.4006, L3890.6301, L3890.6102, L501.9520, L506.0400, L3890.6006, L100.0100 ####[facility] [address] [place], [address] Basophils/100 WBC (Bld) 0.2 % Normal 0-1 [facility] Comment on above: Performed By: #### B TS, L509.8002, L509.4006, L3890.6301, L3890.6102, L501.9520, L506.0400, L3890.6006, L100.0100 ####[facility] [address] [place], [address] Eosinophils/100 WBC (Bld) 2.0 % Normal 0-5 [facility] Comment on above: Performed By: #### B TS, L509.8002, L509.4006, L3890.6301, L3890.6102, L501.9520, L506.0400, L3890.6006, L100.0100 ####[facility] [address] [place], [address] Erythrocyte distribution width (RBC) [Ratio] 13.5 % Normal 11.6-14.6 [facility] Comment on above: Performed By: #### B TS, L509.8002, L509.4006, L3890.6301, L3890.6102, L501.9520, L506.0400, L3890.6006, L100.0100 ####[facility] [address] [place], [address] Hematocrit (Bld) [Volume fraction] 37.8 % Normal 37-47 [facility] Comment on above: Performed By: #### B TS, L509.8002, L509.4006, L3890.6301, L3890.6102, L501.9520, L506.0400, L3890.6006, L100.0100 ####[facility] [address] [place], [address] Hemoglobin (Bld) [Mass/Vol] 13.2 g/dL Normal 12.0-15.0 [facility] Comment on above: Performed By: #### B TS, L509.8002, L509.4006, L3890.6301, L3890.6102, L501.9520, L506.0400, L3890.6006, L100.0100 ####[facility] [address] [place], [address] IG% 0.500 Normal 0.0-0.9 [facility] Comment on above: Result Comment: IG% - Immature Granulocytes (promyelocytes, myelocytes and metamyelocytes) > 1% indicates that a LEFT SHIFT is Present. Performed By: #### B TS, L509.8002, L509.4006, L3890.6301, L3890.6102, L501.9520, L506.0400, L3890.6006, L100.0100 ####[facility] [address] [place], [address] Lymphocytes/100 WBC (Bld) 18.2 % Low 19-41 [facility] Comment on above: Performed By: #### B TS, L509.8002, L509.4006, L3890.6301, L3890.6102, L501.9520, L506.0400, L3890.6006, L100.0100 ####[facility] [address] [place], [address] MCH (RBC) [Entitic mass] 30.5 pg Normal 27.0-32.0 [facility] Comment on above: Performed By: #### B TS, L509.8002, L509.4006, L3890.6301, L3890.6102, L501.9520, L506.0400, L3890.6006, L100.0100 ####[facility] [address] [place], [address] MCHC (RBC) [Mass/Vol] 34.9 g/dL Normal 32-36 [facility] Comment on above: Performed By: #### B TS, L509.8002, L509.4006, L3890.6301, L3890.6102, L501.9520, L506.0400, L3890.6006, L100.0100 ####[facility] [address] [place], [address] MCV (RBC) [Entitic vol] 87.3 fL Normal 81-99 [facility] Comment on above: Performed By: #### B TS, L509.8002, L509.4006, L3890.6301, L3890.6102, L501.9520, L506.0400, L3890.6006, L100.0100 ####[facility] [address] [place], [address] Monocytes/100 WBC (Bld) 5.7 % Normal 0-10 [facility] Comment on above: Performed By: #### B TS, L509.8002, L509.4006, L3890.6301, L3890.6102, L501.9520, L506.0400, L3890.6006, L100.0100 ####[facility] [address] [place], [address] Neutrophils/100 WBC (Bld) 73.4 % High 47-70 [facility] Comment on above: Performed By: #### B TS, L509.8002, L509.4006, L3890.6301, L3890.6102, L501.9520, L506.0400, L3890.6006, L100.0100 ####[facility] [address] [place], [address] Nucleated RBC (Bld) [#/Vol] 0 10*3/uL Normal 0-5 [facility] Comment on above: Performed By: #### B TS, L509.8002, L509.4006, L3890.6301, L3890.6102, L501.9520, L506.0400, L3890.6006, L100.0100 ####[facility] [address] [place], [address] Platelet mean volume (Bld) [Entitic vol] 10.7 fL Normal 6.2-12.0 [facility] Comment on above: Performed By: #### B TS, L509.8002, L509.4006, L3890.6301, L3890.6102, L501.9520, L506.0400, L3890.6006, L100.0100 ####[facility] [address] [place], [address] Platelets (Bld) [#/Vol] 245 10*3/uL Normal 150-450 [facility] Comment on above: Performed By: #### B TS, L509.8002, L509.4006, L3890.6301, L3890.6102, L501.9520, L506.0400, L3890.6006, L100.0100 ####[facility] [address] [place], [address] RBC (Bld) [#/Vol] 4.33 10*6/uL Normal 4.2-5.4 [facility] Comment on above: Performed By: #### B TS, L509.8002, L509.4006, L3890.6301, L3890.6102, L501.9520, L506.0400, L3890.6006, L100.0100 ####[facility] [address] [place], [place], [id number](979) RDW SD 43.2 fl Normal 35.1-43.9 [facility] Comment on above: Performed By: #### B TS, L509.8002, L509.4006, L3890.6301, L3890.6102, L501.9520, L506.0400, L3890.6006, L100.0100 ####[facility] [address] [place], [place], [id number] WBC (Bld) [#/Vol] 8.2 10*3/uL Normal 4.4-11.0 [facility] Comment on above: Performed By: #### B TS, L509.8002, L509.4006, L3890.6301, L3890.6102, L501.9520, L506.0400, L3890.6006, L100.0100 ####[facility] [address] [place], [place], [address] Eosinophil percentageOrdered By: Rocio Persaud on 12-22-2024 Eosinophils/100 WBC (Bld) 2.0 % 0-5 [facility] Erythrocyte distribution wid th (RBC) [Ratio]Ordered By: Rocio Persaud on 12-22-2024 Erythrocyte distribution width (RBC) [Entitic vol] 43.2 fL 35.1-43.9 [facility] Erythrocyte distribution wid th ratioOrdered By: Rocio Persaud on 12-22-2024 Erythrocyte distribution width (RBC) [Ratio] 13.5 % 11.6-14.6 [facility] Erythrocyte distribution wid th standard deviationOrdered By: Rocio Persaud on 12-22-2024 Erythrocyte distribution width (RBC) [Ratio] 43.2 fl 35.1-43.9 [facility] HBV surface Ag Ql (S)Ordered By: Rocio Motaaisha on 12-22-2024 Hepatitis B Surface Antigen Non-Reactive Nonreactive [facility] Comment on above: Reactive: Presumptiv e evidence of HBV. Repeatedly reactive samples must be confirmed using a neutralization test ([employer] HBsAg Confirmatory Test)Non-Reactive: HBsAg not detected; does not exclude the possibility of exposure to HBV HIVon 12-22-2024 HIV Non-Reactive Normal Nonreactive [facility] Comment on above: Result Comment: Non- Reactive Reactive Repeatedly reactive samples must be confirmed according to CDC recommended confirmatory algorithms. The subresults for either HIVAG or AHIV can be used as an aid in the selection of the confirmation algorithm for reactive samples. Send out specimens with Reactive results to [facility] for confirmation. Order the HIV antibody detection and differentiation: lc#[id number] Performed By: #### B TS, L509.8002, L509.4006, L3890.6301, L3890.6102, L501.9520, L506.0400, L3890.6006, L100.0100 ####[facility] [address] [place], [place], [address] Hematocrit Auto (Bld) [Volum e fraction]Ordered By: Rocio Persaud on 12-22-2024 Hematocrit (Bld) [Volume fraction] 37.8 % 37-47 [facility] Hemoglobin measurementOrdere d By: Rocio Persaud on 12-22-2024 Hemoglobin (Bld) [Mass/Vol] 13.2 g/dL 12.0-15.0 [facility] Hepatitis C Antibodyon 12-22 Hepatitis C Ab Non-Reactive Normal Nonreactive [facility] Comment on above: Result Comment: Reac tive: Presumptive evidence of antibodies to HCV. Follow CDC recommendations for supplemental testing. Non-Reactive: Antibodies to HCV were not detected; does not exclude the possibility of exposure to HCV Reactive Results are presumptive evidence of antibodies to HCV. Follow CDC recommendations for supplemental testing. Order confirmation testing: HCV Quant by PCR testing - HCVPCR #[id number] Non Reactive: < 0.8 Equivocal: >/= 0.8 to < 1.0 Reactive: >/= 1.0 The CDC requires that a reactive/equivocal HCV antibody result be sent out for confirmation. HCV Quant by PCR testing. Performed By: #### B TS, L509.8002, L509.4006, L3890.6301, L3890.6102, L501.9520, L506.0400, L3890.6006, L100.0100 ####[facility] [address] [place], [address] Hepatitis C antibodyOrdered By: Rocio Persaud on 12-22-2024 Hepatitis C Antibody Non-Reactive Nonreactive [facility] Comment on above: Reactive: Presumptiv e evidence of antibodies to HCV. Follow CDC recommendations for supplemental testing.Non-Reactive: Antibodies to HCV were not detected; does not exclude the possibility of exposure to HCVReactive Results are presumptive evidence of antibodies to HCV. Follow CDC recommendations for supplemental testing.Order confirmation testing: HCV Quant by PCR testing - HCVPCR #[id number] Non Reactive: < 0.8 Equivocal: >/= 0.8 to < 1.0 Reactive: >/= 1.0The CDC requires that a reactive/equivocal HCV antibody result be sent out for confirmation. HCV Quant by PCR testing. Immature granulocytes/100 WB C Auto (Bld)Ordered By: Rocio Persaud on 12-22-2024 Immature granulocytes/100 WBC (Bld) 0.500 % 0.0-0.9 [facility] Comment on above: IG% - Immature Granu locytes (promyelocytes, myelocytes and metamyelocytes) > 1% indicates that a LEFT SHIFT is Present. L3890.6102on 12-22-2024 HEP B Surf Ag Non-Reactive Normal Nonreactive [facility] Comment on above: Result Comment: Reac tive: Presumptive evidence of HBV. Repeatedly reactive samples must be confirmed using a neutralization test ([employer] HBsAg Confirmatory Test) Non-Reactive: HBsAg not detected; does not exclude the possibility of exposure to HBV Performed By: #### B TS, L509.8002, L509.4006, L3890.6301, L3890.6102, L501.9520, L506.0400, L3890.6006, L100.0100 ####[facility] [address] [place], [address] L509.4006on 12-22-2024 Rubella IgG REAC Normal Nonreactive [facility] Comment on above: Result Comment: Anti body Result: Interpretation Non-Reactive: Non-Immune Reactive: Immune The following results were obtained with the [employer] Rubella IgG assay. Results from assays of other manufacturers cannot be used interchangeably. Performed By: #### B TS, L509.8002, L509.4006, L3890.6301, L3890.6102, L501.9520, L506.0400, L3890.6006, L100.0100 ####[facility] [address] [place], [address] Laboratory - Chemistry and C hemistry - challengeOrdered By: Bambi Quiroz on 12-22-2024 Glucose Ql (U) Negative [facility] - Microbiology an d Antimicrobial susceptibilityOrdered By: Rocio Persaud on 12-22-2024 HBV surface Ag Ql (S) Non-Reactive Nonreactive [facility] Comment on above: Reactive: Presumptiv e evidence of HBV. Repeatedly reactive samples must be confirmed using a neutralization test ([employer] HBsAg Confirmatory Test)Non-Reactive: HBsAg not detected; does not exclude the possibility of exposure to HBV Laboratory - UrinalysisOrder ed By: Bambi Quiroz on 12-22-2024 Protein Ql (U) Negative [facility] Lymphocytes Auto (Unsp spec) [#/Vol]Ordered By: Rocio Persaud on 12-22-2024 Lymphocytes (Bld) [#/Vol] 1.49 10*3/uL 0.83-4.51 [facility] Lymphocytes/100 WBC Auto (Un sp spec)Ordered By: Rocio Persaud on 12-22-2024 Lymphocytes/100 WBC (Bld) 18.2 % Low 19-41 [facility] MCV (mean corpuscular volume ) determinationOrdered By: Rocio Persaud on 12-22-2024 MCV (RBC) [Entitic vol] 87.3 fL 81-99 [facility] Mean corpuscular hemoglobin (MCH) determinationOrdered By: Rocio Persaud on 12-22-2024 MCH (RBC) [Entitic mass] 30.5 pg 27.0-32.0 [facility] Mean corpuscular hemoglobin concentration (MCHC) determinationOrdered By: Rocio Persaud on 12-22-2024 MCHC (RBC) [Mass/Vol] 34.9 g/dL 32-36 [facility] Mean platelet volume determi nationOrdered By: Rocio Persaud on 12-22-2024 Platelet mean volume (Bld) [Entitic vol] 10.7 fL 6.2-12.0 [facility] Monocyte percentageOrdered B y: Rocio Persaud on 12-22-2024 Monocytes/100 WBC (Bld) 5.7 % 0-10 [facility] Neutrophil percentageOrdered By: Rocio Persaud on 12-22-2024 Neutrophils/100 WBC (Bld) 73.4 % High 47-70 [facility] No Panel InformationOrdered By: Rocio Persaud on 12-22-2024 HIV (1&2) Antibody Non-Reactive Nonreactive [facility] Comment on above: Non-ReactiveReactive Repeatedly reactive samples must be confirmed according to CDC recommended confirmatory algorithms. The subresults for either HIVAG or AHIV can be used as an aid in the selection of the confirmation algorithm for reactive samples.Send out specimens with Reactive results to [facility] for confirmation.Order the HIV antibody detection and differentiation: #[id number] Nucleated red blood cell per centageOrdered By: Rocio Persaud on 12-22-2024 Nucleated RBC/100 WBC (Bld) [Ratio] 0 % 0-5 [facility] Back Maker Office Visit Reporton 12-22-2024 Back Maker Office Visit Report [facility], [address] [place] [address] OFFICE VISIT Date of Service: 12/22/24 MR#: [id number] Acct: [id number] Name: MICHELINE PERALES Rep #: [id number] : 2000 Provider: Dr. Bambi Abrams DO Age/Sex: 24/F Location: [facility] Status: Signed Intake Vital Signs 05/13/24 08:00 11/25/24 13:44 12/22/24 10:15 Height 5 ft 1 in 5 ft 1 in 5 ft 1 in Weight: 157 lb 4 oz BMI 29.7 BP 102/69 Intake Visit Reasons: 13 wk OB Chief Complaint: 13 Week OB Wagon Driver Required: No Is patient in pain?: No Allergies No Known Allergies Allergy (Verified 12/22/24 10:19) Medications ???Medication ???Instructions ???Recorded ???Confirmed ???Type Lacto-B.anim,bifid-inul in 50 2 cap PO DAILY 11/04/24 12/22/24 H istory billion cell-50 mg capsule,delay release (Fortify Probiotic) levothyroxine 37.5 mcg capsule 37.5 mcg PO QDAY 11/04/24 12/22/24 History magnesium 200 mg tablet 400 mg PO QDAY 11/04/24 12/22/24 H istory vitamin B complex 1 tab PO QDAY 11/04/24 12/22/24 Hi story Last Menstrual Period: 04/30/24 Zika: Zika virus screening: Negative : No PFSH PFSH Medical History 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 Wears glasses Thyroid disease Headache Shortness of breath on exertion Leg cramps Non-smoker History of irregular heartbeat Vaginal pain Pelvic pain Vaginal delivery Thyroid disorder Hypothyroidism affecting No significant medical problems Acute appendicitis Abdominal pain Surgical History Status post dilatation and curettage History of laparoscopic appendectomy ( 02/2019) Family History Brother Cancer, Onset Age: 16 Acute lymphocytic Leukemia Social History adopted: No household members: spouse and children housing: house number of children: 1 current occupational status: unemployed current occupation: [employer] pets and animals: No history of recent travel: No sexually active: Yes Smoking Status: Never smoker second hand exposure: No alcohol intake: never substance use type: does not use diet: other well-balanced diet: daily or most days caffeine: No eating out: rarely or never during the past year weight has: remained stable what type of physical activity do you participate in: none radha/mormonism: None seatbelt use: always do you feel safe at home: Yes additional social history: [employer] History 3 Elective abortions Hx Para 1 Spontaneous abortions 1 Hx # Term Pregnancies Ectopic pregnancies Hx # Pregnancies Multiple births # of living children 1 Past Pregnancies Del. Date Name GA/Weeks Outcome Route Bth Weight Infant Gen Labor Lgth Anesthesia Del Locatn Provider FOB Unknown December 2022 spontaneous 12/17/21 Romario 39 live - full term 7lbs 3oz Male epidural [facility] V grahamvitaly Quiroz Subhash Delivery Date: Last Updated by: Eileen Lomas SM Delivery Date: 12/17/21 Last Updated by: Christina Russell SROM HPI 13 wk OB Details: MICHELINE PERALES is a 24 year old who presents for routine OB visit. OB Visit ADONIS Calculator Estimated Delivery Date Method Current WG Current Estimate 06/26/25 Ultrasound #1 13w 3d Expected Delivery Route/Plan Labor Preferences- CB/BF classes: [] labor support person: [] labor intervention preferences: [] pain management options preferred: [] cut cord/dad catch: [] : [] PP control planned: [] discussed possible routes of delivery and associated risks: [] special requests: [] Specific Issue/Plans Covid status: [] Flu vaccine: [] Tdap vaccine: [] Rhogam: [] LARC form signed: [] Problem list reviewed and updated with the most current plan of care details and appropriate orders placed. Relevant counseling for the gestational age provided. Continue routine care and follow up unless otherwise noted in visit notes/problem list details Initial Weight: Not Recorded Date -???-???-???-???-???-?? ?-???-???-???-???-???-? ??- EGA Weight BP Urine Prot -???-???-???-???-???-?? ?-???-???-???-???-???-? ??- Glucose FHR FuHt Pres Dilation -???-???-???-???-???-?? ?-???-???-???-???-???-? ??- Effaced St Visit Note 11/25/24 -???-???-???-???-???-?? ?-???-???-???-???-???-? ??- 9w 4d 159 lb 4 oz 111/76 -???-???-???-???-???-?? ?-???-???-???-???-???-? ??- 150 -???-???-???-???-???-?? ?-???-???-???-???-???-? ??- SM- measurin g cons with previous US (more content not included)... Normal [facility] Platelet countOrdered By: Cony Persaud on 12-22-2024 Platelets (Bld) [#/Vol] 245 10*3/uL 150-450 [facility] RBC Auto (Bld) [#/Vol]Ordere d By: Rocio Persaud on 12-22-2024 RBC (Bld) [#/Vol] 4.33 10*6/uL 4.2-5.4 [facility] Rubella immune status determ ination by IgG antibody assayOrdered By: Rocio Persaud on 12-22-2024 Rubella IgG Antibody REAC Nonreactive [facility] Comment on above: Antibody Result: Int erpretationNon-Reactive: Non-ImmuneReactive: ImmuneThe following results were obtained with the [employer] Rubella IgG assay. Results from assays of other manufacturers cannot be used interchangeably. Syphilis Antibodieson 2024 Syphilis Abs Non-Reactive Normal Nonreactive [facility] Comment on above: Performed By: #### B TS, L509.7222, L509.4006, L3890.6301, L3890.6102, L501.9520, L506.0400, L3890.6006, L100.0100 ####[facility] [address] [place], [place], [id number] T. pallidum abOrdered By: Cony Persaud on 12-22-2024 Syphilis Total Antibody Non-Reactive Nonreactiv e [facility] T4 Free Directon 12-22-2024 T4 FREE DIRECT 1.00 ng/dL Normal 0.76-1.46 [facility] Comment on above: Performed By: #### B TS, L509.8002, L509.4006, L3890.6301, L3890.6102, L501.9520, L506.0400, L3890.6006, L100.0100 ####[facility] [address] [place], [address] T4 freeOrdered By: Rocio herrera on 12-22-2024 Free T4 [Mass/Vol] 1.00 ng/dL 0.76-1.46 [facility] TSH DL <= 0.005 mIU/L QnOrde red By: Rocio Persaud on 12-22-2024 Thyroid Stimulating Hormone (TSH) 3.910 uIU/mL 0.300-4.200 [facility] TSH Qn 3.910 uIU/mL 0.300-4.200 [facility] Thyroid Stim Hormone (TSH)on 12-22-2024 TSH 3.910 uIU/mL Normal 0.300-4.200 [facility] Comment on above: Performed By: #### B TS, L509.8002, L509.4006, L3890.6301, L3890.6102, L501.9520, L506.0400, L3890.6006, L100.0100 ####[facility] [address] [place], [place], [id number] Type AND Screenon 12-22-2024 Ab SCREEN GEL Negative Normal [facility] Comment on above: Order Comment: PN Performed By: #### B TS, L509.8002, L509.4006, L3890.6301, L3890.6102, L501.9520, L506.0400, L3890.6006, L100.0100 ####[facility] [address] [place], [address] White blood cell (WBC) count Ordered By: Rocio Persaud on 12-22-2024 WBC (Bld) [#/Vol] 8.2 10*3/uL 4.4-11.0 [facility] PAP I-G w/rfx hrHPV-Aptimaon 11-30-2024 ADEQ Comment Normal . [facility] Comment on above: Order Comment: Speci men Comment: [id number] Comment: Source.............CervixSpecimen Comment: Other..............Specimen Comment: No. of containers..01 ThinPrep Vial Result Comment: Sati sfactory for evaluation. Endocervical and/or squamous metaplastic cells (endocervical component) are present. Performed By: #### L 7000.1800, L7400.0353, M100.2200 ####[facility] [address] [place], [address] COMM . Normal [address] [facility] Comment on above: Order Comment: Speci men Comment: [id number] Comment: Source.............CervixSpecimen Comment: Other..............Specimen Comment: No. of containers..01 ThinPrep Vial Performed By: #### L 7000.1800, L7400.0353, M100.2200 ####[facility] [address] [place], [address] COMMENT Comment Normal . [facility] Comment on above: Order Comment: Speci men Comment: [id number] Comment: Source.............CervixSpecimen Comment: Other..............Specimen Comment: No. of containers..01 ThinPrep Vial Result Comment: This liquid based ThinPrep(R) pap test was screened with the use of an image guided system. Performed By: #### L 7000.1800, L7400.0353, M100.2200 ####[facility] [address] [place], [address] DIAG Comment Normal . [facility] Comment on above: Order Comment: Speci men Comment: [id number] Comment: Source.............CervixSpecimen Comment: Other..............Specimen Comment: No. of containers..01 ThinPrep Vial Result Comment: NEGA TIVE FOR INTRAEPITHELIAL LESION OR MALIGNANCY. Performed By: #### L 7000.1800, L7400.0353, M100.2200 ####[facility] [address] [place], [address] HPV RFLX Comment Normal . [facility] Comment on above: Order Comment: Speci men Comment: [id number] Comment: Source.............CervixSpecimen Comment: Other..............Specimen Comment: No. of containers..01 ThinPrep Vial Result Comment: The HPV DNA reflex criteria were not met with this specimen result therefore, no HPV testing was performed. Performed at: [facility] [address] [id number] Lead Burner Supervisor: Martin Meadows MD, Phone: [phone] Performed at: [address] [id number] Lead Burner Supervisor: Ashley Darling MD, Phone: [phone] Performed By: #### L 7000.1800, L7400.0353, M100.2200 ####[facility] [address] [place], [place], [address] PAPSMR Comment Normal . [facility] Comment on above: Order Comment: Speci men Comment: [id number] Comment: Source.............CervixSpecimen Comment: Other..............Specimen Comment: No. of containers..01 ThinPrep Vial Result Comment: The Pap smear is a screening test designed to aid in the detection of premalignant and malignant conditions of the uterine cervix. It is not a diagnostic procedure and should not be used as the sole means of detecting cervical cancer. Both false-positive and false-negative reports do occur. Performed By: #### L 7000.1800, L7400.0353, M100.0 ####[facility] [address] [place], [place], [address] PERFORM Comment Normal . [facility] Comment on above: Order Comment: Speci men Comment: [id number] Comment: Source.............CervixSpecimen Comment: Other..............Specimen Comment: No. of containers..01 ThinPrep Vial Result Comment: Laquita Martinez, Director Of Professional Services (ASCP) Performed By: #### L 7000.1800, L7400.0353, M100.2200 ####[facility] [address] [place], [address] Chlamydia/GC KIM aptimaon CHLAMY,NUC ACID Negative Normal Negative [facility] Comment on above: Performed By: #### L 7000.1800, L7400.0353, M100.2200 ####[facility] [address] [place], [place], [address] GC BY NUC ACID Negative Normal Negative [facility] Comment on above: Result Comment: Perf ormed at: =G - [facility] [address] [place] [id number] Lead Burner Supervisor: Ashley Darling MD, Phone: [phone] Performed By: #### L 7000.1800, L7400.0353, M100.2200 ####[facility] [address] [place], [address] Urine Cultureon 11-26-2024 URC Culture exhibits no growth. Normal [facility] Comment on above: Performed By: #### L 7000.1800, L7400.0353, M100.2200 ####[facility] [address] [place], [place], [address] C. trachomatis rRNA KIM+prob e Ql (Unsp spec)Ordered By: Rocio Persaud on 11-25-2024 Chlamydia DNA (KIM) Negative Negative [facility] Cervical or vagninal specime n microscopic examination by cytology stain (reported asOrdered By: Rocio Persaud on 11-25-2024 Cytology report Cyto stain Doc (Cvx/Vag) Comment . [facility] Comment on above: The Pap smear is a s creening test designed to aid in thedetection of premalignant and malignant conditions of theuterine cervix. It is not a diagnostic procedure andshould not be used as the sole means of detecting cervicalcancer. Both false-positive and false-negative reports dooccur. Chlamydia trachomatis rRNA d etection by probe and target amplification methodOrdered By: Rocio Persaud on 11-25-2024 C. trachomatis rRNA KIM+probe Ql (Unsp spec) Negative Negative [facility] Well Driller Helper Cyto stain Nom (C vx/Vag) [ID]Ordered By: Rocio Persaud on 11-25-2024 Pap Smear Performed By Comment . [facility] Comment on above: Luda Martinez, Director Of Professional Services (ASCP) Cytology report Cyto stain D oc (Cvx/Vag)Ordered By: Rocio Persaud on 11-25-2024 Thin Prep Pap Smear Comment . [facility] Comment on above: The Pap smear is a s creening test designed to aid in thedetection of premalignant and malignant conditions of theuterine cervix. It is not a diagnostic procedure andshould not be used as the sole means of detecting cervicalcancer. Both false-positive and false-negative reports dooccur. Image-guided ThinPrep PapOrd ered By: Rocio Persaud on 11-25-2024 Pap Smear Note Comment . [facility] Comment on above: This liquid based Th inPrep(R) pap test was screened withthe use of an image guided system. Image-guided liquid-based Pa pOrdered By: Rocio Persaud on 11-25-2024 Pap Smear Diagnosis Comment . [facility] Comment on above: NEGATIVE FOR INTRAEP ITHELIAL LESION OR MALIGNANCY. Image-guided liquid-based ce rvical Pap w high-risk HPV+reflex to HPV 16+18Ordered By: Rocio Persaud on 11-25-2024 Human Papillomavirus Screen Comment . [facility] Comment on above: The HPV DNA reflex c riteria were not met with this specimenresult therefore, no HPV testing was performed.Performed at: - [facility] [address] [id number] Director: Martin Meadows MD, Phone: [phone] at: [facility] [address] [id number] Director: Ashley Darling MD, Phone: [phone] Laboratory - CytologyOrdered By: Rocio Persaud on 11-25-2024 Well Driller Helper Cyto stain Nom (Cvx/Vag) [ID] Comment . [facility] Comment on above: Luda Martinez, Director Of Professional Services (ASCP) Laboratory - Miscellaneous t estsOrdered By: Rocio Persaud on 11-25-2024 Service comment (Unsp spec) [Interp] . . [facility] Neisseria gonorrhoeae nuclei c acid detection by amplified probe techniqueOrdered By: Rocio Persaud on 03-21-2025 N. gonorrhoeae DNA KIM+probe Ql (Unsp spec) Negative Negative [facility] Comment on above: Performed at: =[facility] [address] [place] [id number] Director: Ashley Darling MD, Phone: [phone] No Panel InformationOrdered By: Rocio Persaud on 11-25-2024 Pap Smear Specimen Adequacy Comment . [facility] Comment on above: Satisfactory for gen luation. Endocervical and/or squamous metaplasticcells (endocervical component) are present. Back Maker Office Visit Reporton 11-25-2024 Back Maker Office Visit Report [facility] [address], [address] [place] [address] OFFICE VISIT Date of Service: 11/25/24 MR#: [id number] Acct: [id number] Name: MICHELINE PERALES Rep #: [id number] : 2000 Provider: Dr. Rocio hoang MD Age/Sex: 24/F Location: [facility] Status: Signed Intake Vital Signs 05/13/24 08:00 11/25/24 13:44 Height 5 ft 1 in 5 ft 1 in Weight: 159 lb 4 oz BMI 30.0 BP 111/76 Intake Visit Reasons: New OB, unsure LMP, hx m/c Wagon Driver Required: No Is patient in pain?: No Feel stressed/tense/nervous/ anxious/difficulty sleeping: not at all Allergies No Known Allergies Allergy (Verified 11/25/24 13:47) Medications ???Medication ???Instructions ???Recorded ???Confirmed ???Type Lacto-B.anim,bifid-inul in 50 2 cap PO DAILY 11/04/24 History billion cell-50 mg capsule,delay release (Fortify Probiotic) levothyroxine 37.5 mcg capsule 37.5 mcg PO QDAY 11/04/24 History magnesium 200 mg tablet 400 mg PO QDAY 11/04/24 History vitamin B complex 1 tab PO QDAY 11/04/24 History Last Menstrual Period: 04/30/24 Zika: Zika virus screening: Negative : No PFSH PFSH Medical History 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 Wears glasses Thyroid disease Headache Shortness of breath on exertion Leg cramps Non-smoker History of irregular heartbeat Vaginal pain Pelvic pain Vaginal delivery Thyroid disorder Hypothyroidism affecting No significant medical problems Acute appendicitis Abdominal pain Surgical History Status post dilatation and curettage History of laparoscopic appendectomy ( 02/2019) Family History Brother Cancer, Onset Age: 16 Acute lymphocytic Leukemia Social History adopted: No household members: spouse and children housing: house number of children: 1 current occupational status: unemployed current occupation: [employer] pets and animals: No history of recent travel: No sexually active: Yes Smoking Status: Never smoker second hand exposure: No alcohol intake: never substance use type: does not use diet: other well-balanced diet: daily or most days caffeine: No eating out: rarely or never during the past year weight has: remained stable what type of physical activity do you participate in: none radha/mormonism: None seatbelt use: always do you feel safe at home: Yes additional social history: [employer] History 3 Elective abortions Hx Para 1 Spontaneous abortions 1 Hx # Term Pregnancies Ectopic pregnancies Hx # Pregnancies Multiple births # of living children 1 Past Pregnancies Del. Date Name GA/Weeks Outcome Route Bth Weight Infant Gen Labor Lgth Anesthesia Del Locatn Provider FOB Unknown December 2022 spontaneous 12/17/21 Romario 39 live - full term 7lbs 3oz Male epidural [facility] graham Velde Subhash Delivery Date: Last Updated by: Eileen Lomas SM Delivery Date: 12/17/21 Last Updated by: Christina KING HPI New OB, unsure LMP, hx m/c Details: MICHELINE PERALES is a 24 year old who presents for New OB visit. OB Visit ADONIS Calculator Estimated Delivery Date Method Current WG Current Estimate 06/26/25 Ultrasound #1 9w 4d Comments: HIV: Urine Culture: Sequential Screen: NIPT Screen: Estimated Due Date: 06/26/25 Expected Delivery Route/Plan Labor Preferences- CB/BF classes: [] labor support person: [] labor intervention preferences: [] pain management options preferred: [] cut cord/dad catch: [] : [] PP control planned: [] discussed possible routes of delivery and associated risks: [] special requests: [] Specific Issue/Plans Covid status: [] Flu vaccine: [] Tdap vaccine: [] Rhogam: [] LARC form signed: [] Problem list reviewed and updated with the most current plan of care details and appropriate orders placed. Relevant counseling for the gestational age provided. Continue routine care and follow up unless otherwise noted in visit notes/problem list details Initial Weight: Not Recorded Date -???-???-???-???-???-?? ?-???-???-???-???-???-? ??- EGA Weight BP Urine Prot -???-???-???-???-???-?? ?-???-???-???-???-???-? ??- Glucose FHR FuHt Pres Dilation -???-???-???-???-???-?? ?-???-???-???-???-???-? ??- Effaced St Visit Note 11/25/24 -???-???-???-???-???-?? ?-???-???-???-???-???-? ??- 9w 4d 159 lb 4 oz 111/76 -???-???-???-???-???-?? ?-???-???-???-???-???-? ??- 150 -???-? (more content not included)... Normal [facility] Service comment (Unsp spec) [Interp]Ordered By: Rocio Persaud on 11-25-2024 Pap Smear Comment (3) . . [facility] Urine cultureOrdered By: Rai Persaud on 11-25-2024 Bacteria identified Cx Nom (U) Culture exhibits no growth. [facility] Transvaginal w/Preg USon Transvaginal w/Preg US [facility] Imaging Services [address], [place] [address] Transvaginal w/Preg US MR#: [id number] Acct: [id number] Name: MICHELINE PERALES Rep #: [id number] : 2000 F 24 From: Casper Restrepo MD PCP: LUIS F Leiva Status: REG CLI Study: Transvaginal w/Preg US Date of Exam: 11/02/24 Exam# [id number] Ordering Dr: Rocio Persaud PROCEDURE: TRANSVAGINAL W/PREG US REASON FOR EXAM: Dating. COMPARISON: None. FINDINGS The uterus measures 9.6 x 6.9 x 4.8 cm. No fibroids. A gestational sac is present which dates 6 weeks and 2 days. The yolk sac is visualized. An embryo is visualized with a heart rate of 108. [place]-rump length measures 6 weeks and 2 days. EGA by ultrasound of 6 weeks and 2 days. ADONIS by ultrasound of 06/26/2025. Right ovary measures 6.1 x 3.2 x 2.6 cm. Right ovarian dominant follicle which measures 2.6 cm. No adnexal mass. Preserved flow within the right ovary. Left ovary measures 4.0 x 2.6 x 2.1 cm. No adnexal mass. Preserved flow within the left ovary. Minimal free fluid in the cul-de-sac. US/Transvaginal w/Preg US IMPRESSION: Single live intrauterine as above. Reading Location: [id number] CC: Dr. Rocio Persaud MD; LUIS F Leiva Knitter Helper: Signed Normal [facility] HCG ( test) QlOrder ed By: Rocio Persaud on 10-27-2024 Human Chorionic Gonadotropin, Quant 2617 mIU/mL High <4 [facility] Comment on above: hCG levels with Gest ational AgeGestational Age hCG mIU/mL (IU/L)0.2 - 1 week 5 - 501-2 weeks 50 - 5002-3 weeks 100 - 42902-0 weeks 500 - 769593-4 weeks 1000 - 639221-9 weeks 51880 - 100,0006-8 weeks 40680 - 200,0002-3 months 40600 - 100,000 Serum human chorionic gonado tropin detection for pregnancyOrdered By: Rocio Persaud on 10-27-2024 HCG ( test) Ql 2617 mIU/mL High <4 [facility] Comment on above: hCG levels with Gest ational AgeGestational Age hCG mIU/mL (IU/L)0.2 - 1 week 5 - 501-2 weeks 50 - 5002-3 weeks 100 - 67541-0 weeks 500 - 996087-1 weeks 1000 - 262296-0 weeks 98680 - 100,0006-8 weeks 81458 - 200,0002-3 months 75223 - 100,000 hCG Titer Quant., Serumon HCG QUANT. 2617 mIU/mL High 1-3 [facility] Comment on above: Result Comment: hCG levels with Gestational Age Gestational Age hCG mIU/mL (IU/L) 0.2 - 1 week 5 - 50 1-2 weeks 50 - 500 2-3 weeks 100 - 5000 3-4 weeks 500 - 03180 4-5 weeks 1000 - 16396 5-6 weeks 74507 - 100,000 6-8 weeks 07786 - 200,000 2-3 months 93527 - 100,000 Performed By: #### L 700.8000 ####[facility] [address], [place], [id number] T3, FREEon 02-11-2024 Free T3 [Mass/Vol] 3.4 pg/mL Normal 2.3-4.2 [facility] Comment on above: Performed By: #### 3 8633, 986, 548 #### [facility] [address] , [address] [place] [address] Touring Production Manager: Prakash Banegas MD T4, FREEon 02-11-2024 Free T4 [Mass/Vol] 1.3 ng/dL Normal 0.8-1.8 [facility] Comment on above: Performed By: #### 3 4429, 866, 899 #### [facility] [address] [facility], [address] [place] [address] Touring Production Manager: Prakash Banegas MD TSHon 02-11-2024 TSH Qn 2.56 m[IU]/L Normal [facility] Comment on above: Result Comment: Refe rence Range > or = 20 Years 0.40-4.50 Ranges First trimester 0.26-2.66 Second trimester 0.55-2.73 Third trimester 0.43-2.91 Performed By: #### 3 4429, 866, 899 #### [facility] [address] [facility], [address] [place], [place] [address] Touring Production Manager: Prakash Banegas MD Laboratory - Chemistry and C hemistry - challengeon 02-10-2024 Free T3 [Mass/Vol] 3.4 pg/mL Normal 2.3 - 4.2 pg/mL [employer] Free T4 [Mass/Vol] 1.3 ng/dL Normal 0.8 - 1.8 ng/dL [employer] TSH Qn 2.56 m[IU]/L Normal [employer] Serum or plasma progesterone measurement (mass/volume)Ordered By: Bisi Miller on 10-26-2023 Progesterone [Mass/Vol] 0.35 ng/mL See Comment [facility] Comment on above: Progesterone Referen ce Table: UNITS Female: Follicular 0.15 - 1.40 ng/mL Luteal 3.34 - 25.56 ng/mL Mid-luteal 4.44 - 28.03 ng/mL Postmenopausal 0.0 - 0.73 ng/mL : 1st Trimester 11.22 - 90.00 ng/mL 2nd Trimester 25.55 - 89.40 ng/mL 3rd Trimester 48.40 -422.50 ng/mL No Panel InformationOrdered By: Bisi Miller on 10-09-2023 Follicle Stimulating Hormone 5.9 mIU/mL [facility] Comment on above: NORMAL REFERENCE RAN GES FEMALE FOLLICULAR 2.3 - 12.6 mIU/mL MID-CYCLE PEAK 5.2 - 17.5 mIU/mL LUTEAL 1.7 - 12.9 mIU/mL POST-MENOPAUSAL ON MHT 5.9 - 72.8 mIU/mL NOT ON MHT 12.7 - 132.2 mlU/mL MALE 0.7 - 10.8 mIU/mL Luteinizing Hormone 4.4 mIU/mL [facility] Comment on above: NORMAL REFERENCE RAN GES FEMALE FOLLICULAR 1.9 - 26.2 mIU/mL MID-CYCLE PEAK 22.8 - 76.1 mIU/mL LUTEAL 0.6 - 16.6 mIU/mL POST-MENOPAUSAL ON MHT 1.1 - 52.4 mIU/mL NOT ON MHT 8.6 - 61.8 mIU/mL MALE 1.2 - 10.6 mIU/mL Serum or plasma estrogen larry surement (mass/volume)Ordered By: Bisi Miller on 10-09-2023 Estrogen [Mass/Vol] 80 pg/mL . [facility] Comment on above: Prepubertal < 40 Fem rahul Cycle: 1-10 Days 16 - 328 11-20 Days 34 - 501 21-30 Days 48 - 350 Post-Menopausal 40 - 244Performed at: - [facility] [address] [id number] Director: Mekhi Armando MD, Phone: [phone] Serum or plasma progesterone measurement (mass/volume)Ordered By: Bisi Miller on 10-09-2023 Progesterone [Mass/Vol] 0.39 ng/mL See Comment [facility] Comment on above: Progesterone Referen ce Table: UNITS Female: Follicular 0.15 - 1.40 ng/mL Luteal 3.34 - 25.56 ng/mL Mid-luteal 4.44 - 28.03 ng/mL Postmenopausal 0.0 - 0.73 ng/mL : 1st Trimester 11.22 - 90.00 ng/mL 2nd Trimester 25.55 - 89.40 ng/mL 3rd Trimester 48.40 -422.50 ng/mL Serum or plasma thyroid stim ulating hormone (TSH) measurement (units/volume)Ordered By: Fuad Howard on 10-09-2023 TSH Qn 1.97 uIU/mL 0.358-3.74 [facility] Thin prep Papanicolaou smear with manual screeningOrdered By: Fuad Howard on 10-09-2023 Thin prep Papanicolaou smear with manual screening 1.03 ng/dL 0.76-1.46 [facility] Laboratory - Chemistry and C hemistry - challengeOrdered By: Dr. Persaud on 01-01-2023 Free T4 [Mass/Vol] 0.82 ng/dL 0.76-1.46 [facility] No Panel InformationOrdered By: Dr. Persaud on 12-23-2022 Thyroid Stimulating Hormone (TSH) 5.19 uIU/mL 0.358-3.74 [facility] Serum or plasma thyroperoxid ase antibody assay (units/volume)Ordered By: Dr. Persaud on 12-23-2022 TPO Ab Qn 40 [IU]/mL 0-34 [facility] Comment on above: Performed at: [place] [id number] Director: Eleazar Gr PhD, Phone: [phone] Basophil percentageOrdered B y: Dr. Persaud on 12-08-2022 WBC (Bld) [#/Vol] 8.4 10*3/uL 4.4-11.0 [facility] Blood erythrocytes count (nu mber/volume)Ordered By: Dr. Persaud on 12-08-2022 RBC (Bld) [#/Vol] 4.65 10*6/uL 4.2-5.4 [facility] Blood hemoglobin measurement (mass/volume)Ordered By: Dr. Persaud on 12-08-2022 Hemoglobin (Bld) [Mass/Vol] 13.8 g/dL 12.0-15.0 [facility] Blood platelet mean volumeOr dered By: Dr. Persaud on 12-08-2022 Platelet mean volume (Bld) [Entitic vol] 10.1 fL 6.2-12.0 [facility] Determination of erythrocyte mean corpuscular volume (MCV)Ordered By: Dr. Persaud on 12-08-2022 MCV (RBC) [Entitic vol] 88.6 fL 81-99 [facility] Hematocrit Auto (Bld) [Volum e fraction]Ordered By: Dr. Persaud on 12-08-2022 Hematocrit (Bld) [Volume fraction] 41.2 % 37-47 [facility] Laboratory - Hematology and Cell countsOrdered By: Dr. Persaud on 12-08-2022 Erythrocyte distribution width (RBC) [Entitic vol] 43.9 fL 35.1-43.9 [facility] Erythrocyte distribution width (RBC) [Ratio] 13.5 % 11.6-14.6 [facility] MCH (RBC) [Entitic mass] 29.7 pg 27.0-32.0 [facility] MCHC Auto (RBC) [Mass/Vol]Or dered By: Dr. Persaud on 12-08-2022 MCHC (RBC) [Mass/Vol] 33.5 g/dL 32-36 [facility] Platelets bldOrdered By: Dr. Persaud on 12-08-2022 Platelets (Bld) [#/Vol] 251 10*3/uL 150-450 [facility] Laboratory - Chemistry and C hemistry - challengeon 03-26-2022 Free T4 [Mass/Vol] 0.98 ng/dL 0.76-1.46 [facility] Work Phone: No Panel Informationon 03-26 Thyroid Stimulating Hormone (TSH) 0.73 uIU/mL 0.358-3.74 [facility] Work Phone: Absolute lymphocyte counton 12-17-2021 Lymphocytes Auto (Unsp spec) [#/Vol] 2.13 10*3/uL 0.83-4.51 [facility] Work Phone: Amorphous sediment detection in urine sediment by light microscopyon 12-17-2021 Amorphous sediment LM Ql (Urine sed) 1+ [facility] Work Phone: Basophil percentageon 2021 Basophil percentage 0-5 SEEN /hpf 0-5 [facility] Work Phone: Basophils/100 WBC (Bld) 0.1 % 0-1 [facility] Work Phone: C. trachomatis DNA KIM+probe Ql (Unsp spec) Negative Negative [facility] Work Phone: Eosinophils/100 WBC (Bld) 0.4 % 0-5 [facility] Work Phone: Neutrophils (Bld) [#/Vol] 9.7 10*3/uL 2.0-7.7 [facility] Work Phone: Neutrophils/100 WBC (Bld) 76.8 % 47-70 [facility] Work Phone: WBC (Bld) [#/Vol] 12.6 10*3/uL 4.4-11.0 [facility] Work Phone: Bilirubin Test strip Ql (U)o n 12-17-2021 Bilirubin Ql (U) Negative Negative [facility] Work Phone: Blood erythrocytes count (nu mber/volume)on 12-17-2021 RBC (Bld) [#/Vol] 4.11 10*6/uL 4.2-5.4 [facility] Work Phone: Blood hemoglobin measurement (mass/volume)on 12-17-2021 Hemoglobin (Bld) [Mass/Vol] 12.4 g/dL 12.0-15.0 [facility] Work Phone: Blood lymphocytes/100 leukoc yteson 12-17-2021 Lymphocytes/100 WBC (Bld) 16.9 % 19-41 [facility] Work Phone: Blood monocytes/100 leukocyt eson 12-17-2021 Monocytes/100 WBC (Bld) 5.2 % 0-10 [facility] Work Phone: Blood platelet mean volumeon 12-17-2021 Platelet mean volume (Bld) [Entitic vol] 11.4 fL 6.2-12.0 [facility] Work Phone: Determination of erythrocyte mean corpuscular volume (MCV)on 12-17-2021 MCV (RBC) [Entitic vol] 88.8 fL 81-99 [facility] Work Phone: HIV 1 and HIV-2 antibody ass ay with HIV-1 p24 antigen detectionon 12-17-2021 HIV 1+2 Ab+HIV1 p24 Ag IA Ql Non-Reactive Nonreactive [facility] Work Phone: [phone] Hematocrit Auto (Bld) [Volum e fraction]on 12-17-2021 Hematocrit (Bld) [Volume fraction] 36.5 % 37-47 [facility] Work Phone: [phone] Ketones Test strip Ql (U)on 12-17-2021 Ketones Ql (U) Negative Negative [facility] Work Phone: [phone] Laboratory - Drug toxicology on 12-17-2021 Benzodiazepines Ql (U) Negative < 200 ng/mL [facility] Work Phone: [phone] Cannabinoids Screen Ql (U) Negative < 50 ng/mL [facility] Work Phone: [phone] Cocaine Ql (U) Negative < 300 ng/mL [facility] Work Phone: [phone] Opiates Ql (U) Negative < 300 ng/mL [facility] Work Phone: [phone] Laboratory - Hematology and Cell countson 12-17-2021 Erythrocyte distribution width (RBC) [Entitic vol] 45.0 fL 35.1-43.9 [facility] Work Phone: [phone] Erythrocyte distribution width (RBC) [Ratio] 13.8 % 11.6-14.6 [facility] Work Phone: [phone] Immature granulocytes/100 WBC (Bld) 0.600 % 0.0-0.9 [facility] Work Phone: [phone] Comment on above: IG% - Immature Granu locytes (promyelocytes, myelocytes and metamyelocytes) > 1% indicates that a LEFT SHIFT is Present. MCH (RBC) [Entitic mass] 30.2 pg 27.0-32.0 [facility] Work Phone: [phone] Nucleated RBC/100 WBC (Bld) [Ratio] 0 % 0-5 [facility] Work Phone: [phone] MCHC Auto (RBC) [Mass/Vol]on 12-17-2021 MCHC (RBC) [Mass/Vol] 34.0 g/dL 32-36 [facility] Work Phone: [phone] Mucus LM Ql (Urine sed)on Mucus Ql (Urine sed) 0 SEEN /hpf [facility] Work Phone: [phone] Neisseria gonorrhoeae detect ion by PCRon 12-17-2021 N. gonorrhoeae DNA KIM+probe Ql (Cervical mucus) Negative Negative [facility] Work Phone: [phone] Nitrite Test strip Ql (U)on 12-17-2021 Nitrite Ql (U) Negative Negative [facility] Work Phone: [phone] Panel Informationon 12-17 Hepatitis B Surface Antigen Non-Reactive Nonreactive [facility] Work Phone: [phone] Hepatitis C Antibody Non-Reactive Nonreactive [facility] Work Phone: [phone] Comment on above: Non Reactive: < 0.8 Equivocal: >/= 0.8 to < 1.0 Reactive: >/= 1.0The [facility] recommends that a reactive/equivocal HCV antibody result be followed up by the HCV Nucleic Acid Amplificationtest (675536) MDMA (Ecstasy) Screen Negative < 500 ng/mL [facility] Work Phone: [phone] [phone] Barbiturates Screen Negative < 200 ng/mL [facility] Work Phone: [phone] Urine Drug Screen Comment [facility] Work Phone: [phone] Comment on above: CONFIRMATORY TESTING FOR ALL POSITIVE URINE DRUG SCREENRESULTS WILL ONLY BE SENT OUT UPON PHYSICIAN ORDER. VISTA Urine Drug Screen methods provide only preliminaryanalytical test results. A more specific alternate chemicalmethod must be used in order to obtain a confirmedanalytical result. Gas chromatography/mass spectrometery(GC/MS) is the preferred confirmatory method. Clinicalconsideration and professional judgement should be appliedto any drug of abuse test result, particularly whenpreliminary positive results are used. URINE TCA TESTING MUST BE ORDERED SEPARATELY. USE TESTMNEMONIC: [facility] Urine Methadone Screen Negative < 300 ng/mL [facility] Work Phone: [phone] Urine Transitional Epithelial Cells 0-5 SEEN /hpf 0-5 [facility] Work Phone: Platelets bldon 12-17-2021 Platelets (Bld) [#/Vol] 237 10*3/uL 150-450 [facility] Work Phone: Protein Test strip Ql (U)on 12-17-2021 Protein Ql (U) Negative Negative [facility] Work Phone: Serum Treponema species anti body detectionon 12-17-2021 Treponema sp Ab Ql (S) Non-Reactive [facility] Work Phone: Squamous epithelial cells de tection in urine sediment by light microscopyon 12-17-2021 Epithelial cells.squamous LM Ql (Urine sed) 0-5 SEEN /hpf 5-10 [facility] Work Phone: Urine amphetamine measuremen t (moles/volume)on 12-17-2021 Amphetamine (U) [Moles/Vol] Negative <1000 ng/mL [facility] Work Phone: Urine blood detectionon 12-06 RBC Ql (U) Negative Negative [facility] Work Phone: RBC Ql (U) 0 SEEN /hpf 0-5 [facility] Work Phone: Urine clarityon 12-17-2021 Clarity (U) Clear Clear [facility] Work Phone: Urine color determinationon 12-17-2021 Color (U) Yellow Yellow [facility] Work Phone: Urine glucose detectionon Glucose Ql (U) Normal mg/dl Normal [facility] Work Phone: Urine leukocyte esterase det ection by dipstickon 12-17-2021 Leukocyte esterase Test strip Ql (U) Negative Negative [facility] Work Phone: Urine pHon 12-17-2021 pH (U) 8.0 [pH] 5.0 - 8.0 [facility] Work Phone: Urine phencyclidine (PCP) de tectionon 12-17-2021 Phencyclidine Ql (U) Negative < 25 ng/mL [facility] Work Phone: Urine sediment bacteria coun t by microscopy (number/high power field)on 12-17-2021 Bacteria LM.HPF (Urine sed) [#/Area] 0 /[HPF] None Seen [facility] Work Phone: Urine specific gravity measu rementon 12-17-2021 Specific gravity (U) [Rel density] 1.015 1.002-1.030 [facility] Work Phone: Urobilinogen Auto test strip Ql (U)on 12-17-2021 Urobilinogen Ql (U) Normal mg/dl Normal [facility] Work Phone: Laboratory - Chemistry and C hemistry - challengeon 12-13-2021 Glucose Ql (U) Negative [facility] Work Phone: Laboratory - Urinalysison Protein Ql (U) Negative [facility] Work Phone: Laboratory - Chemistry and C hemistry - challengeon 12-06-2021 Glucose Ql (U) Negative [facility] Work Phone: Laboratory - Urinalysison Protein Ql (U) Negative [facility] Work Phone: Laboratory - Chemistry and C hemistry - challengeon 11-29-2021 Glucose Ql (U) Negative [facility] Work Phone: Laboratory - Urinalysison Protein Ql (U) Negative [facility] Work Phone: No Panel Informationon 11-29 Group B Streptococcus Culture Group B Beta Streptococcus is not isolated. [facility] Work Phone: Laboratory - Chemistry and C hemistry - challengeon 11-15-2021 Glucose Ql (U) Negative [facility] Work Phone: Laboratory - Urinalysison Protein Ql (U) Negative [facility] Work Phone: Laboratory - Chemistry and C hemistry - challengeon 11-01-2021 Free T4 [Mass/Vol] 1.39 ng/dL 0.76-1.46 [facility] Work Phone: Glucose Ql (U) Negative [facility] Work Phone: Laboratory - Urinalysison Protein Ql (U) Negative [facility] Work Phone: No Panel Informationon 11-01 Thyroid Stimulating Hormone (TSH) < 0.01 uIU/mL 0.358-3.74 [facility] Work Phone: Laboratory - Chemistry and C hemistry - challengeon 10-18-2021 Glucose Ql (U) Negative [facility] Work Phone: [phone] Laboratory - Urinalysison Protein Ql (U) Negative [facility] Work Phone: Absolute lymphocyte counton 10-02-2021 Lymphocytes Auto (Unsp spec) [#/Vol] 2.05 10*3/uL 0.83-4.51 [facility] Work Phone: Basophil percentageon 2021 Basophils/100 WBC (Bld) 0.3 % 0-1 [facility] Work Phone: Eosinophils/100 WBC (Bld) 1.3 % 0-5 [facility] Work Phone: Neutrophils (Bld) [#/Vol] 8.1 10*3/uL 2.0-7.7 [facility] Work Phone: Neutrophils/100 WBC (Bld) 72.8 % 47-70 [facility] Work Phone: WBC (Bld) [#/Vol] 11.1 10*3/uL 4.4-11.0 [facility] Work Phone: Blood erythrocytes count (nu mber/volume)on 10-02-2021 RBC (Bld) [#/Vol] 3.97 10*6/uL 4.2-5.4 [facility] Work Phone: Blood hemoglobin measurement (mass/volume)on 10-02-2021 Hemoglobin (Bld) [Mass/Vol] 12.3 g/dL 12.0-15.0 [facility] Work Phone: Blood lymphocytes/100 leukoc yteson 10-02-2021 Lymphocytes/100 WBC (Bld) 18.5 % 19-41 [facility] Work Phone: [phone] Blood monocytes/100 leukocyt eson 10-02-2021 Monocytes/100 WBC (Bld) 6.6 % 0-10 [facility] Work Phone: Blood platelet mean volumeon 10-02-2021 Platelet mean volume (Bld) [Entitic vol] 10.0 fL 6.2-12.0 [facility] Work Phone: [phone] Determination of erythrocyte mean corpuscular volume (MCV)on 10-02-2021 MCV (RBC) [Entitic vol] 89.9 fL 81-99 [facility] Work Phone: [phone] Gestational diabetes screen 1-hour screen with 50g oral glucose loadon 10-02-2021 Glucose 1 Hr post 50 g glucose PO [Mass/Vol] 107 mg/dL 70-140 [facility] Work Phone: [phone] Hematocrit Auto (Bld) [Volum e fraction]on 10-02-2021 Hematocrit (Bld) [Volume fraction] 35.7 % 37-47 [facility] Work Phone: [phone] Laboratory - Chemistry and C hemistry - challengeon 10-02-2021 Glucose Ql (U) Negative [facility] Work Phone: [phone] Free T4 [Mass/Vol] 1.20 ng/dL 0.76-1.46 [facility] Work Phone: [phone] Laboratory - Hematology and Cell countson 10-02-2021 Erythrocyte distribution width (RBC) [Entitic vol] 44.7 fL 35.1-43.9 [facility] Work Phone: [phone] Erythrocyte distribution width (RBC) [Ratio] 13.6 % 11.6-14.6 [facility] Work Phone: Immature granulocytes/100 WBC (Bld) 0.500 % 0.0-0.9 [facility] Work Phone: Comment on above: IG% - Immature Granu locytes (promyelocytes, myelocytes and metamyelocytes) > 1% indicates that a LEFT SHIFT is Present. MCH (RBC) [Entitic mass] 31.0 pg 27.0-32.0 [facility] Work Phone: Nucleated RBC/100 WBC (Bld) [Ratio] 0 % 0-5 [facility] Work Phone: Laboratory - Urinalysison Protein Ql (U) Negative [facility] Work Phone: MCHC Auto (RBC) [Mass/Vol]on 10-02-2021 MCHC (RBC) [Mass/Vol] 34.5 g/dL 32-36 [facility] Work Phone: No Panel Informationon 10-02 Thyroid Stimulating Hormone (TSH) 0.08 uIU/mL 0.358-3.74 [facility] Work Phone: Platelets bldon 10-02-2021 Platelets (Bld) [#/Vol] 208 10*3/uL 150-450 [facility] Work Phone: Laboratory - Chemistry and C hemistry - challengeon 09-03-2021 Glucose Ql (U) Negative [facility] Work Phone: [phone] Laboratory - Urinalysison Protein Ql (U) Negative [facility] Work Phone: [phone] Laboratory - Chemistry and C hemistry - challengeon 08-09-2021 Free T4 [Mass/Vol] 1.06 ng/dL 0.76-1.46 [facility] Work Phone: Glucose Ql (U) Negative [facility] Work Phone: [phone] Laboratory - Urinalysison Protein Ql (U) Negative [facility] Work Phone: No Panel Informationon 08-09 Thyroid Stimulating Hormone (TSH) 1.26 uIU/mL 0.358-3.74 [facility] Work Phone: Gram stain for investigation of transfusion reaction Microscopic observation Gram stain Nom (Unsp spec) [facility] Work Phone: No Panel Information Group B Streptococcus Culture Group B Beta Streptococcus is not isolated. [facility] Work Phone: Thin prep Papanicolaou smear with manual screening Genital Culture GPC Poss Enterococcu s sp [facility] Work Phone: Vital Signs Date Time Vital Sign Value Performing Clinician Anuj radford 06-14-2025 11:43-0400 Body height 154.94 cm LuMiaSolé PA Work Phone: [facility] 06-14-2025 11:40-0400 Body mass index (BMI) [Ratio] 35.9 kg/m2 Lusoup.meler PA Work Phone: [facility] 06-14-2025 11:40-0400 Body weight 86.38 kg LuJustPartsMildred PA Work Phone: [facility] 06-14-2025 11:40-0400 Diastolic blood pressure 68 mm[Hg] Luke Mildred PA Work Phone: [facility] 06-14-2025 11:40-0400 Systolic blood pressure 105 mm[Hg] Luke Mildred PA Work Phone: [facility] 06-05-2025 08:46-0400 Body height 154.94 cm L[place].meler PA Work Phone: [facility] 06-05-2025 08:45-0400 Body mass index (BMI) [Ratio] 35.6 kg/m2 Luke Mildred PA Work Phone: [facility] 06-05-2025 08:45-0400 Body weight 85.72 kg Luke Mildred PA Work Phone: [facility] 06-05-2025 08:45-0400 Diastolic blood pressure 73 mm[Hg] Luke Mildred PA Work Phone: [facility] 06-05-2025 08:45-0400 Systolic blood pressure 106 mm[Hg] Luke Mildred PA Work Phone: [facility] 05-31-2025 09:25-0400 Body mass index (BMI) [Ratio] 35.5 kg/m2 Luke Mildred PA Work Phone: [facility] 05-31-2025 09:25-0400 Body weight 85.36 kg Luke Mildred PA Work Phone: [facility] 05-31-2025 09:25-0400 Diastolic blood pressure 77 mm[Hg] Luke Mildred PA Work Phone: [facility] 05-31-2025 09:25-0400 Systolic blood pressure 130 mm[Hg] Luke Mildred PA Work Phone: [facility] 05-18-2025 09:56-0400 Body height 154.94 cm Luke Mildred PA Work Phone: [facility] 05-18-2025 09:52-0400 Body mass index (BMI) [Ratio] 34.9 kg/m2 Luke Mildred PA Work Phone: [facility] 05-18-2025 09:52-0400 Body weight 83.94 kg Luke Mildred PA Work Phone: [facility] 05-18-2025 09:52-0400 Diastolic blood pressure 67 mm[Hg] Luke Mildred PA Work Phone: [facility] 05-18-2025 09:52-0400 Systolic blood pressure 106 mm[Hg] Luke Mildred PA Work Phone: [facility] 05-01-2025 14:02-0400 Body height 154.94 cm Luke Mildred PA Work Phone: [facility] 04-20-2025 13:17-0400 Body mass index (BMI) [Ratio] 34.1 kg/m2 Luke Mildred PA Work Phone: [facility] 04-20-2025 13:17-0400 Body weight 81.9 kg Luke Mildred PA Work Phone: [facility] 04-20-2025 13:17-0400 Diastolic blood pressure 78 mm[Hg] Luke Mildred PA Work Phone: [facility] 04-20-2025 13:17-0400 Systolic blood pressure 116 mm[Hg] Luke Mildred PA Work Phone: [facility] 04-20-2025 09:21-0400 Body height 154.94 cm Luke Mildred PA Work Phone: [facility] 04-20-2025 09:19-0400 Body mass index (BMI) [Ratio] 33.4 kg/m2 Luke Mildred PA Work Phone: [facility] 04-20-2025 09:19-0400 Body weight 80.31 kg Luke Mildred PA Work Phone: [facility] 04-20-2025 09:19-0400 Diastolic blood pressure 65 mm[Hg] Luke Mildred PA Work Phone: [facility] 04-20-2025 09:19-0400 Systolic blood pressure 100 mm[Hg] Luke Mildred PA Work Phone: [facility] 04-05-2025 10:02-0400 Body height 154.94 cm Luke Mildred PA Work Phone: [facility] 04-05-2025 09:58-0400 Body mass index (BMI) [Ratio] 32.9 kg/m2 Luke Mildred PA Work Phone: [facility] 04-05-2025 09:58-0400 Body weight 79.03 kg Luke Mildred PA Work Phone: [facility] 04-05-2025 09:58-0400 Diastolic blood pressure 70 mm[Hg] Luke Mildred PA Work Phone: [facility] 04-05-2025 09:58-0400 Systolic blood pressure 104 mm[Hg] Luke Mildred PA Work Phone: [facility] 03-13-2025 13:20-0400 Body height 154.94 cm Luke Mildred PA Work Phone: [facility] 03-13-2025 13:20-0400 Body mass index (BMI) [Ratio] 32.3 kg/m2 Luke Mildred PA Work Phone: [facility] 03-13-2025 13:20-0400 Body weight 77.67 kg Luke Mildred PA Work Phone: [facility] 03-13-2025 13:20-0400 Diastolic blood pressure 71 mm[Hg] Luke Mildred PA Work Phone: [facility] 03-13-2025 13:20-0400 Systolic blood pressure 107 mm[Hg] Luke Mildred PA Work Phone: [facility] 02-16-2025 09:48-0400 Body height 154.94 cm Luke Mildred PA Work Phone: [facility] 02-16-2025 09:48-0400 Body mass index (BMI) [Ratio] 31.2 kg/m2 Luke Mildred PA Work Phone: [facility] 02-16-2025 09:48-0400 Body weight 74.95 kg Luke Mildred PA Work Phone: [facility] 02-16-2025 09:48-0400 Diastolic blood pressure 64 mm[Hg] Luke Mildred PA Work Phone: [facility] 02-16-2025 09:48-0400 Systolic blood pressure 114 mm[Hg] Luke Mildred PA Work Phone: [facility] 01-18-2025 13:04-0400 Body height 154.94 cm Luke Mildred PA Work Phone: [facility] 01-18-2025 13:04-0400 Body mass index (BMI) [Ratio] 30.2 kg/m2 Luke Mildred PA Work Phone: [facility] 01-18-2025 13:04-0400 Body weight 72.74 kg Luke Mildred PA Work Phone: [facility] 01-18-2025 13:04-0400 Diastolic blood pressure 60 mm[Hg] Luke Mildrde PA Work Phone: [facility] 01-18-2025 13:04-0400 Systolic blood pressure 110 mm[Hg] Luke Mildred PA Work Phone: [facility] 12-22-2024 10:15-0400 Body height 154.94 cm Luke Mildred PA Work Phone: [facility] 12-22-2024 10:15-0400 Body mass index (BMI) [Ratio] 29.7 kg/m2 Luke Mildred PA Work Phone: [facility] 12-22-2024 10:15-0400 Body weight 71.32 kg Luke Mildred PA Work Phone: [facility] 12-22-2024 10:15-0400 Diastolic blood pressure 69 mm[Hg] Luke Mildred PA Work Phone: [facility] 12-22-2024 10:15-0400 Systolic blood pressure 102 mm[Hg] Luke Mildred PA Work Phone: [facility] 11-25-2024 13:44-0400 Body height 154.94 cm Luke Mildred PA Work Phone: [facility] 11-25-2024 13:44-0400 Body mass index (BMI) [Ratio] 30 kg/m2 Abdirizak RobertsMildred PA Work Phone: [facility] 11-25-2024 13:44-0400 Body weight 72.23 kg Luazalea RobertsMildred PA Work Phone: [facility] 11-25-2024 13:44-0400 Diastolic blood pressure 76 mm[Hg] Luke Mildred PA Work Phone: [facility] 11-25-2024 13:44-0400 Systolic blood pressure 111 mm[Hg] Abdirizak RobertsMildred PA Work Phone: [facility] 02-10-2024 08:04-0400 Body height 156.21 cm Shira Patel MA [facility], [facility]. 02-10-2024 08:04-0400 Body mass index (BMI) [Ratio] 30.49 kg/m2 Shira Patel MA [facility], [facility].; [facility]. 02-10-2024 08:04-0400 Body surface area Derived from formula 1.75 m2 Shira Patel MA [facility], [facility].; [facility]. 02-10-2024 08:04-0400 Body weight 74.39 kg Shira Patel MA [facility], [facility].; [facility]. 02-10-2024 08:04-0400 Diastolic blood pressure 74 mm[Hg] Shira Patel MA [facility], [facility].; [facility]. Comment on above: Patient Position: Sitting; Cuff Location : Left Arm; Cuff Size: Standard 02-10-2024 08:04-0400 Heart rate 74 /min Shira Patel MA [facility], [facility].; [place] [employer] [facility], [facility]. Comment on above: Pattern: Regular 02-10-2024 08:04-0400 Systolic blood pressure 111 mm[Hg] Shira Patel MA [facility], [facility].; [facility], [facility]. Comment on above: Patient Position: Sitting; Cuff Location : Left Arm; Cuff Size: Standard 10-09-2023 09:11-0500 Body height 154.94 cm PA Luke Mildred Work Phone: [facility] 10-09-2023 09:05-0500 Body mass index (BMI) [Ratio] 31.2 kg/m2 PA Luke Mildred Work Phone: [facility] 10-09-2023 09:05-0500 Body weight 75.06 kg PA Luke Mildred Work Phone: [facility] 10-09-2023 09:05-0500 Diastolic blood pressure 62 mm[Hg] PA Luke Mildred Work Phone: [facility] 10-09-2023 09:05-0500 Systolic blood pressure 104 mm[Hg] PA Luke Mildred Work Phone: [facility] 07-13-2023 08:50-0500 Body height 156.21 cm Luke E Mildred PA-C Work Phone: [facility] 07-13-2023 08:50-0500 Body mass index (BMI) [Ratio] 30.86 kg/m2 Luke E Mildred PA-C Work Phone: [facility] [place] [employer] [facility]. 07-13-2023 08:50-0500 Body surface area Derived from formula 1.76 m2 Luke E Mildred PA-C Work Phone: [employer] [employer] [facility]. 07-13-2023 08:50-0500 Body weight 75.3 kg Luke E Mildred PA-C Work Phone: [employer] 07-13-2023 08:50-0500 Diastolic blood pressure 72 mm[Hg] Luke E Mildred PA-C Work Phone: [facility]. Comment on above: Patient Position: Sitting; Cuff Location : Left Arm; Cuff Size: Standard 11-06-2023 08:50-0500 Heart rate 84 /min Abdirizak Levy PA-C Work Phone: [facility] Comment on above: Pattern: Regular 07-13-2023 08:50-0500 Systolic blood pressure 109 mm[Hg] Abdirizak Levy PA-C Work Phone: [facility] Comment on above: Patient Position: Sitting; Cuff Location : Left Arm; Cuff Size: Standard 12-23-2022 11:09-0400 Body height 154.[address] Venkat Jain Work Phone: [facility] 12-23-2022 11:09-0400 Body mass index (BMI) [Ratio] 31.4 kg/m2 Dr. Venkat Jain Work Phone: [facility] 12-23-2022 11:09-0400 Diastolic blood pressure 77 mm[Hg] Dr. Venkta Jain Work Phone: [facility] 12-23-2022 11:09-0400 Systolic blood pressure 117 mm[Hg] Dr. Venkat Jain Work Phone: [facility] 12-23-2022 11:06-0400 Body weight 75.[address] Venkat Jain Work Phone: [facility] 12-08-2022 14:40-0400 Diastolic blood pressure 60 mm[Hg] Dr. Venkat Jain Work Phone: [facility] 12-08-2022 14:40-0400 Heart rate 72 /min Dr. Venkat Jain Work Phone: [facility] 12-08-2022 14:40-0400 Respiratory rate 18 /min Dr. Venkat Jain Work Phone: [facility] 12-08-2022 14:40-0400 SaO2% (BldA) [Mass fraction] 99 % Dr. Venkat Jain Work Phone: [facility] 12-08-2022 14:40-0400 Systolic blood pressure 110 mm[Hg] Dr. Venkat Jain Work Phone: [facility] 12-08-2022 13:20-0400 Body temperature 97.4 [degF] Dr. Venkat Jain Work Phone: [facility] 12-08-2022 12:05-0400 Body mass index (BMI) [Ratio] 31.1 kg/m2 Dr. Venkat Jain Work Phone: [facility] 12-08-2022 12:05-0400 Body weight 74.[address] Venkat Jain Work Phone: [facility] 12-04-2022 11:14-0400 Body mass index (BMI) [Ratio] 31.2 kg/m2 Dr. Venkat Jain Work Phone: [phone] [place] [address] 12-04-2022 11:14-0400 Body weight 76.[address] Venkat Jain Work Phone: [phone] [place] [address] 12-04-2022 11:14-0400 Diastolic blood pressure 75 mm[Hg] Dr. Venkat Jain Work Phone: [facility] 12-04-2022 11:14-0400 Systolic blood pressure 126 mm[Hg] Dr. Venkat Jain Work Phone: [phone] [place] [address] 03-26-2022 11:10-0400 Body height 156.[address] Ryley Beck Work Phone: [facility] Work Phone: 03-26-2022 11:09-0400 Body mass index (BMI) [Ratio] 31.5 kg/m2 Dr. Ryley Beck Work Phone: [facility] Work Phone: 03-26-2022 11:09-0400 Body weight 75.[address] Ryley Beck Work Phone: [facility] Work Phone: 03-26-2022 11:09-0400 Diastolic blood pressure 80 mm[Hg] Dr. Ryley Beck Work Phone: [facility] Work Phone: 03-26-2022 11:09-0400 Systolic blood pressure 112 mm[Hg] Dr. Ryley Beck Work Phone: [facility] Work Phone: 01-31-2022 15:36-0400 Body height 156.[address] Ryley Beck Work Phone: [facility] Work Phone: 01-31-2022 15:36-0400 Diastolic blood pressure 82 mm[Hg] Dr. Ryley Beck Work Phone: [facility] Work Phone: 01-31-2022 15:36-0400 Systolic blood pressure 116 mm[Hg] Dr. Ryley Beck Work Phone: [facility] Work Phone: 12-19-2021 13:45-0400 Body temperature 97.4 [degF] Dr. Ryley Beck Work Phone: [facility] Work Phone: 12-19-2021 13:45-0400 Diastolic blood pressure 75 mm[Hg] Dr. Ryley Beck Work Phone: [facility] Work Phone: 12-19-2021 13:45-0400 Heart rate 80 /min Dr. Ryley Beck Work Phone: [facility] Work Phone: 12-19-2021 13:45-0400 Respiratory rate 16 /min Dr. Ryley Beck Work Phone: [facility] Work Phone: 12-19-2021 13:45-0400 Systolic blood pressure 99 mm[Hg] Dr. Ryley Beck Work Phone: [facility] Work Phone: 12-18-2021 15:44-0400 SaO2% (BldA) [Mass fraction] 98 % Dr. Ryley Beck Work Phone: [facility] Work Phone: 12-17-2021 12:26-0400 Body height 156.[address] Ryley Beck Work Phone: [facility] Work Phone: 12-17-2021 12:26-0400 Body mass index (BMI) [Ratio] 34 kg/m2 Dr. Ryley Beck Work Phone: [facility] Work Phone: 12-17-2021 12:26-0400 Body weight 83.[address] Ryley Beck Work Phone: [facility] Work Phone: 12-13-2021 10:03-0400 Body mass index (BMI) [Ratio] 34.2 kg/m2 Dr. Ryley Beck Work Phone: [facility] Work Phone: 12-13-2021 10:03-0400 Body weight 83.[address] Ryley Beck Work Phone: [facility] Work Phone: 12-13-2021 10:03-0400 Diastolic blood pressure 70 mm[Hg] Dr. Ryley Beck Work Phone: [facility] Work Phone: 12-13-2021 10:03-0400 Systolic blood pressure 110 mm[Hg] Dr. Ryley Beck Work Phone: [facility] Work Phone: 12-13-2021 10:03-0400 Body mass index (BMI) [Ratio] 34.2 kg/m2 Dr. Ryley Beck Work Phone: [facility] Work Phone: 12-13-2021 10:03-0400 Body weight 83.[address] Ryley Beck Work Phone: [facility] Work Phone: 12-13-2021 10:03-0400 Diastolic blood pressure 70 mm[Hg] Dr. Ryley Beck Work Phone: [facility] Work Phone: 12-13-2021 10:03-0400 Systolic blood pressure 110 mm[Hg] Dr. Ryley Beck Work Phone: [facility] Work Phone: 12-06-2021 09:48-0400 Body mass index (BMI) [Ratio] 33.8 kg/m2 Dr. Ryley Beck Work Phone: [facility] Work Phone: 12-06-2021 09:48-0400 Body weight 82.[address] Ryley Beck Work Phone: [facility] Work Phone: 12-06-2021 09:48-0400 Diastolic blood pressure 80 mm[Hg] Dr. Ryley Beck Work Phone: [facility] Work Phone: 12-06-2021 09:48-0400 Systolic blood pressure 118 mm[Hg] Dr. Ryley Beck Work Phone: [facility] Work Phone: 12-06-2021 09:48-0400 Body mass index (BMI) [Ratio] 33.8 kg/m2 Dr. Ryley Beck Work Phone: [facility] Work Phone: 12-06-2021 09:48-0400 Body weight 82.[address] Ryley Beck Work Phone: [facility] Work Phone: 12-06-2021 09:48-0400 Diastolic blood pressure 80 mm[Hg] Dr. Ryley Beck Work Phone: [facility] Work Phone: 12-06-2021 09:48-0400 Systolic blood pressure 118 mm[Hg] Dr. Ryley Beck Work Phone: [facility] Work Phone: 11-29-2021 09:30-0400 Body mass index (BMI) [Ratio] 33.6 kg/m2 Dr. Ryley Beck Work Phone: [facility] Work Phone: 11-29-2021 09:30-0400 Body weight 82.[address] Ryley Beck Work Phone: [facility] Work Phone: 11-29-2021 09:30-0400 Diastolic blood pressure 78 mm[Hg] Dr. Rlyey Beck Work Phone: [facility] Work Phone: 11-29-2021 09:30-0400 Systolic blood pressure 120 mm[Hg] Dr. Ryley Beck Work Phone: [facility] Work Phone: 11-29-2021 09:30-0400 Body height 156.[address] Ryley Beck Work Phone: [facility] Work Phone: 11-29-2021 09:30-0400 Body mass index (BMI) [Ratio] 33.6 kg/m2 Dr. Ryley Beck Work Phone: [facility] Work Phone: 11-29-2021 09:30-0400 Body weight 82.[address] Ryley Beck Work Phone: [facility] Work Phone: 11-29-2021 09:30-0400 Diastolic blood pressure 78 mm[Hg] Dr. Ryley Beck Work Phone: [facility] Work Phone: 11-29-2021 09:30-0400 Systolic blood pressure 120 mm[Hg] Dr. Ryley Beck Work Phone: [facility] Work Phone: 11-15-2021 09:44-0500 Body mass index (BMI) [Ratio] 32.8 kg/m2 Dr. Ryley Beck Work Phone: [facility] Work Phone: 11-15-2021 09:44-0500 Body weight [address] Ryley Beck Work Phone: [facility] Work Phone: 11-15-2021 08:44-0500 Body mass index (BMI) [Ratio] 32.8 kg/m2 Dr. Ryley Beck Work Phone: [facility] Work Phone: 11-15-2021 08:44-0500 Body weight [address] Ryley Beck Work Phone: [facility] Work Phone: 11-01-2021 08:20-0500 Body mass index (BMI) [Ratio] 32.5 kg/m2 Dr. Rlyey Beck Work Phone: [facility] Work Phone: 11-01-2021 08:20-0500 Body weight 79.[address] Ryley Beck Work Phone: [facility] Work Phone: 11-01-2021 08:20-0500 Diastolic blood pressure 76 mm[Hg] Dr. Ryley Beck Work Phone: [facility] Work Phone: 11-01-2021 08:20-0500 Systolic blood pressure 120 mm[Hg] Dr. Ryley Beck Work Phone: [facility] Work Phone: 10-18-2021 08:44-0500 Body mass index (BMI) [Ratio] 32.3 kg/m2 Dr. Ryley Beck Work Phone: [facility] Work Phone: 10-18-2021 08:44-0500 Body weight 78.[address] Ryley Beck Work Phone: [facility] Work Phone: 10-18-2021 08:44-0500 Diastolic blood pressure 70 mm[Hg] Dr. Ryley Beck Work Phone: [facility] Work Phone: 10-18-2021 08:44-0500 Systolic blood pressure 110 mm[Hg] Dr. Ryley Beck Work Phone: [facility] Work Phone: 10-02-2021 07:57-0500 Body mass index (BMI) [Ratio] 31.8 kg/m2 Dr. Ryley Beck Work Phone: [facility] Work Phone: 10-02-2021 07:57-0500 Body weight 77.[address] Ryley Beck Work Phone: [facility] Work Phone: 10-02-2021 07:57-0500 Diastolic blood pressure 64 mm[Hg] Dr. Ryley Beck Work Phone: [facility] Work Phone: 10-02-2021 07:57-0500 Systolic blood pressure 116 mm[Hg] Dr. Ryley Beck Work Phone: [facility] Work Phone: 09-03-2021 14:13-0500 Body mass index (BMI) [Ratio] 30.8 kg/m2 Dr. Ryley Beck Work Phone: [facility] Work Phone: 09-03-2021 14:13-0500 Body weight 75.[address] Ryley Beck Work Phone: [facility] Work Phone: 09-03-2021 14:13-0500 Diastolic blood pressure 70 mm[Hg] Dr. Ryley Beck Work Phone: [facility] Work Phone: 09-03-2021 14:13-0500 Systolic blood pressure 116 mm[Hg] Dr. Ryley eBck Work Phone: [facility] Work Phone: 08-09-2021 08:12-0500 Body mass index (BMI) [Ratio] 30.1 kg/m2 Dr. Ryley Beck Work Phone: [facility] Work Phone: 08-09-2021 08:12-0500 Body weight 73.[address] Ryley Beck Work Phone: [facility] Work Phone: 08-09-2021 08:12-0500 Diastolic blood pressure 80 mm[Hg] Dr. Ryley Beck Work Phone: [facility] Work Phone: 08-09-2021 08:12-0500 Systolic blood pressure 120 mm[Hg] Dr. Ryley Beck Work Phone: [facility] Work Phone: Encounters Encounter Date Encounter Type Care Provider Facility Start: 06-14-2025 End: 06-14-[address] Rocio Persaud MD -[facility] Work Phone: Start: 06-14-2025 End: 06-14-2025 ambulatory Abdirizak KERNS Work Phone: -[facility] Start: 06-05-2025 End: 06-05-[address] Rocio Persaud MD -[facility] Work Phone: Start: 06-05-2025 End: 06-05-2025 ambulatory Luke Mildred PA Work Phone: -[facility] Start: 05-31-2025 End: 05-31-2025 ambulatory Luke Mildred PA Work Phone: -Laboratory Specimen Start: 05-31-2025 End: 05-31-[address] Rocio Persaud MD -Laboratory Specimen Work Phone: Start: 05-31-2025 End: 05-31-[address] Rocio Persaud MD -[facility] Work Phone: Start: 05-31-2025 End: 05-31-2025 ambulatory Luke Mildred PA Work Phone: [facility] Start: 05-31-2025 End: 05-31-2025 ambulatory Luke Mildred Facility:[facility] Start: 05-18-2025 End: 05-18-2025 Patient encounter procedure Mariana HENDERSON -[facility] Work Phone: Start: 05-18-2025 End: 05-18-2025 ambulatory Luke Mildred PA Work Phone: -[facility] Start: 05-01-2025 End: 05-01-2025 Patient encounter procedure Jacinta Rojas CNM -[facility] Work Phone: Start: 05-01-2025 End: 05-01-2025 ambulatory Luke Mildred PA Work Phone: -[facility] Start: 04-20-2025 End: 04-20-[address] Rocio Persaud MD -[facility] Work Phone: Start: 04-20-2025 End: 04-20-2025 ambulatory Luke Mildred PA Work Phone: -[facility] Start: 04-20-2025 End: 04-20-2025 ambulatory Mariana Mcfarland FEED PROJECT ENGINEER Facility:[facility] Start: 04-05-2025 End: 04-05-2025 ambulatory Abdirizak Richardsetler PA Work Phone: [facility] Start: 04-05-2025 End: 04-05-2025 Patient encounter procedure Mariana Karla FEED PROJECT ENGINEER-C -[facility] Work Phone: Start: 04-05-2025 End: 04-05-2025 ambulatory Abdirizak Richardsetler Facility:[facility] Start: 03-13-2025 End: 03-13-2025 Patient encounter procedure Jacinta Rojas CNM -[facility] Work Phone: Start: 03-13-2025 End: 03-13-2025 ambulatory Abdirizak RobertsMildred PA Work Phone: [facility] Start: 02-16-2025 End: 02-16-2025 Patient encounter procedure Mariana Karla FEED PROJECT ENGINEER-C -[facility] Work Phone: Start: 02-16-2025 End: 02-16-2025 ambulatory Abdirizak RobertsMildred PA Work Phone: [facility] Work Phone: Start: 02-06-2025 End: 02-06-2025 ambulatory ABDIRIZAK LEVY [facility] Start: 01-18-2025 End: 01-18-2025 Patient encounter procedure Mariana Mcfarland FEED PROJECT ENGINEER-C -[facility] Work Phone: Start: 01-18-2025 End: 01-18-2025 ambulatory Luke Mildred PA Work Phone: [facility] Work Phone: Start: 12-22-2024 End: 12-22-[address] Bambi Bronson, [facility] Start: 12-22-2024 End: 12-22-[address] Bambi Callaway DO -[facility] Work Phone: Start: 12-22-2024 End: 12-22-2024 ambulatory Luke Mildred PA Work Phone: [facility] Work Phone: Start: 12-22-2024 End: 12-22-2024 ambulatory Bambi Callaway Facility:[facility] Start: 11-25-2024 End: 11-25-[address] Rocio Persaud MD -[facility] Work Phone: Start: 11-25-2024 End: 11-25-2024 ambulatory Luke Mildred PA Work Phone: [facility] Work Phone: Start: 11-25-2024 End: 11-25-2024 ambulatory Luke Mildred Facility:[facility] Start: 11-07-2024 End: 11-07-2024 ambulatory YAA DC [facility] Start: 11-02-2024 End: 11-02-2024 ambulatory Luke Mildred PA Work Phone: [facility] Work Phone: Start: 11-02-2024 End: 11-02-[address] Rocio Persaud MD -Ultrasound, [facility] Work Phone: Start: 11-02-2024 End: 11-02-2024 ambulatory Luke Mildred Facility:[facility] Start: 10-27-2024 End: 10-27-[address] Rocio Persaud MD -Laboratory, [facility] Start: 10-27-2024 End: 10-27-2024 ambulatory Luke Mildred Facility:[facility] Start: 06-20-2024 End: 06-20-2024 ambulatory YAA DC [facility] Start: 02-11-2024 End: 02-11-2024 Orders Luke Mildred PA-C Work Phone: [facility] Start: 02-10-2024 End: 02-10-2024 Office outpatient visit 15 minutes Luke Mildred PA-C Work Phone: [facility] Start: 10-26-2023 End: 10-26-2023 ambulatory PA Luke Mildred Work Phone: [facility] Work Phone: Start: 10-26-2023 End: 10-26-2023 Patient encounter procedure PA Luke Mildred Work Phone: [facility] Start: 10-09-2023 End: 10-09-2023 ambulatory PA Luke Mildred Work Phone: [facility] Work Phone: Start: 10-09-2023 End: 10-09-2023 Patient encounter procedure PA Luke Mildred Work Phone: [facility] Work Phone: Start: 07-20-2023 End: 07-20-2023 Orders Luke Mildred PA-C Work Phone: [facility] Start: 07-13-2023 End: 07-13-2023 Office outpatient new 20 minutes Luke Mildred PA-C Work Phone: [facility] Start: 01-01-2023 End: 01-01-[address] Venkat Jain Work Phone: [facility] Work Phone: Start: 01-01-2023 End: 01-01-[address] Venkat Jain Work Phone: [facility] Start: 12-23-2022 End: 12-23-[address] Venkat Jain Work Phone: [facility] Work Phone: Start: 12-23-2022 End: 12-23-[address] Venkat Jain Work Phone: [facility] Start: 12-08-2022 Non-patient / Non-visit Dr. Venkat Jain Work Phone: [facility] Start: 12-08-2022 End: 12-08-2022 Admission to same day surgery center [facility]ain [facility] Start: 12-04-2022 End: 12-04-[address] Venkat Jain Work Phone: [facility] Start: 03-26-2022 End: 03-26-[address] Ryley Beck Work Phone: [facility]-Laboratory Start: 03-26-2022 End: 03-26-[address] Ryley Beck Work Phone: [facility] Start: 03-05-2022 End: 03-05-[address] Ryley Beck Work Phone: [facility] Ul[facility]ound Start: 01-31-2022 End: 01-31-[address] Ryley Beck Work Phone: [facility] Start: 12-19-2021 Non-patient / Non-visit Dr. Ryley Beck Work Phone: [facility] Start: 12-17-2021 End: 12-19-2021 Evaluation and management of inpatient Dr. Ryley Beck Work Phone: [facility] Start: 12-17-2021 Non-patient / Non-visit Dr. Ryley Beck Work Phone: [facility] Start: 12-13-2021 End: 12-13-[address] Ryley Beck Work Phone: [facility] Start: 12-06-2021 End: 12-06-[address] Ryley Beck Work Phone: [facility] Start: 11-29-2021 End: 11-29-[address] Ryley Beck Work Phone: [facility] Start: 11-29-2021 End: 11-29-[address] [facility] Start: 11-15-2021 End: 11-15-[address] Ryley Beck Work Phone: [facility] Start: 11-01-2021 End: 11-01-[address] Ryley Beck [facility] Start: 10-18-2021 End: 10-18-[address] Ryley Beck Work Phone: [facility] Start: 10-02-2021 End: 10-02-[address] Ryley Beck [facility] Start: 09-03-2021 End: 09-03-[address] Ryley Beck Work Phone: [facility] Start: 08-09-2021 End: 08-09-[address] Ryley Beck [facility] Procedures Date Procedure Procedure Detail Performing Clinician Start: 05-31-2025 Beta-hemolytic Streptococcus culture Abdirizak KERNS Work Phone: Start: 04-05-2025 Serologic test for syphilis Abdirizak KERNS Work Phone: Start: 12-22-2024 Procedure Abdirizak KERNS Work Phone: Comment on above: Test Ordered: [id number] TSH Receptor Antibody (TBII)TSH Receptor Antibody (TBII) <0.3 U/L Reference Range: .Reference Range:Antibody Titer:<1.0 U/L = Negative1.1 - 1.5 U/L = Equivocal>1.5 U/L = PositivePerformed at: [facility] [address] [id number] Director: Steve Leslie MD, Phone: [phone] at: [facility] [id number] Director: Eleazar Gr PhD, Phone: [phone] Start: 12-22-2024 Hepatitis C antibody measurement Abdirizak KERNS Work Phone: Comment on above: Reactive: Presumptiv e evidence of antibodies to HCV. Follow CDC recommendations for supplemental testing.Non-Reactive: Antibodies to HCV were not detected; does not exclude the possibility of exposure to HCVReactive Results are presumptive evidence of antibodies to HCV. Follow CDC recommendations for supplemental testing.Order confirmation testing: HCV Quant by PCR testing - HCVPCR #[id number] Non Reactive: < 0.8 Equivocal: >/= 0.8 to < 1.0 Reactive: >/= 1.0The CDC requires that a reactive/equivocal HCV antibody result be sent out for confirmation. HCV Quant by PCR testing. Start: 12-22-2024 Rubella IgG measurement Abdirizak KERNS Work Phone: Comment on above: Antibody Result: Int erpretationNon-Reactive: Non- ImmuneReactive: ImmuneThe following results were obtained with the [employer] Rubella IgG assay. Results from assays of other manufacturers cannot be used interchangeably. Start: 12-22-2024 Serologic test for syphilis Abdirizak KERNS Work Phone: Start: 11-25-2024 Liquid based cervica l cytology screening Abdirizak KERNS Work Phone: Comment on above: NEGATIVE FOR INTRAEP ITHELIAL LESION OR MALIGNANCY. This liquid based Th inPrep(R) pap test was screened withthe use of an image guided system. The HPV DNA reflex c riteria were not met with this specimenresult therefore, no HPV testing was performed.Performed at: [facility] [id number] [id number] Director: Martin Meadows MD, Phone: [phone] at: [address] [id number] Director: Ashley Darling MD, Phone: [phone] Start: 11-25-2024 Urine culture Abdirizak KERNS Work Phone: Start: 11-02-2024 Transvaginal obstetr ic ultrasonography Abdirizak KERNS Work Phone: Start: 07-20-2023 End: 07-20-2023 Removal sutures under anesthesia same surgeon Abdirizak Levy PA-C Work Phone: Start: 07-13-2023 End: 07-13-2023 Exc b9 lesion mrgn xcp sk tg s/n/h/f/g 0.5 cm/< Abdirizak Levy PA-C Work Phone: Start: 01-01-2023 US scan of thyroid Dr. Venkat Jain Work Phone: Start: 03-05-[address] Shirin Beck Work Phone: Start: 03-05-[address] Ryley Beck Work Phone: Start: 12-17-2021 End: 12-17-[address] Ryley Beck Work Phone: Start: 11-29-2021 Group B Streptococcu s Culture Dr. Ryley Beck Work Phone: Start: 08-09-2021 End: 08-09-[address] Ryley Beck Work Phone: Cytopathology proced ure, preparation of smear, genital source Dr. Ryley Beck Work Phone: Group B Streptococcu s Culture Dr. Ryley Beck Work Phone: H/O: surgery Status post dilatation and curettage Dr. Venkat Jain Work Phone: Comment on above: 8 weeks missed ab Investigation of transfusion reaction Dr. Ryley Beck Work Phone: Viral antigen assay Dr. Tiffany Beck Work Phone: Plan of Treatment Date Care Activity Detail Author Start: 06-26-2025 ambulatory Ambulatory Facility:[facility] Start: 06-05-2025 [facility] Start: 06-05-2025 End: 06-05-2025 Patient encounter procedure Hx of one miscarriage -[facility] Work Phone: Start: 04-20-[address] [facility] Start: 04-20-2025 Thyroid stimulating hormone measurement [facility] Start: 04-05-2025 CBC W Auto Differential panel - Blood [facility] Start: 04-05-2025 Measurement of glucose 2 hours after glucose challenge for glucose tolerance test [facility] Start: 04-05-2025 Serologic test for syphilis [facility] Start: 04-05-2025 [facility] Start: 12-22-[address] [facility] Start: 11-25-2024 Liquid based cervical cytology screening [facility] Start: 02-10-2024 Assay of thyroid stimulating hormone tsh TSH (THYROID STIMULATING HORMONE) ([id number]) Start: 10-Feb-2024 08:29-04:00 Request [facility] Start: 02-10-2024 Assay of free thyroxine T4 FREE ([id number]) Start: 10-Feb-2024 08:29-04:00 Request [facility] Start: 02-10-2024 Assay of triiodothyronine t3 free T3 FREE ([id number]) Start: 10-Feb-2024 08:29-04:00 Request [facility] Start: 12-08-2022 Anesthesia incomplete/missed ANESTH INC/MISSED AB PROC [facility] Start: 12-08-2022 Tx missed first trimester surgical CARE OF MISCARRIAGE [facility] Start: 12-08-[address] [facility] Start: 12-08-2022 Medical regimen orders management [facility] Start: 12-08-[address] [facility] Start: 12-08-[address] [facility] Start: 12-08-[address] [facility] Start: 12-08-2022 Taking patient vital signs [facility] Start: 12-08-2022 Vital signs measurements [facility] Start: 12-08-2022 [facility] Start: 12-19-[address] [facility] Work Phone: Start: 12-17-[address] [facility] Work Phone: Start: 12-17-2021 Application of ice collar, cap or bag [facility] Work Phone: Start: 12-17-2021 Catheterization of vein [facility] Work Phone: Start: 12-17-2021 Introduction of urinary catheter [facility] Work Phone: Start: 12-17-2021 Measuring intake and output [facility] Work Phone: Start: 12-17-2021 Notification of physician [facility] Work Phone: Start: 12-17-[address] [facility] Work Phone: Start: 12-17-2021 Provision of activity privileges [facility] Work Phone: Start: 12-17-2021 Vital signs measurements [facility] Work Phone: Start: 12-17-2021 [facility] Work Phone: Start: 12-17-[address] [facility] Work Phone: CBC W Auto Different ial panel - Blood [facility] CBC W Auto Different ial panel - Blood [facility] Erythrocyte mean corpuscular volume determination [facility] Hematocrit [Volume Fraction] of Blood [facility] Hemoglobin [Mass/vol ume] in Blood [facility] Hepatitis C antibody measurement [facility] Leukocytes [#/volume ] in Blood [facility] Mean corpuscular hem oglobin concentration determination [facility] Mean corpuscular hem oglobin determination [facility] Measurement of gluco se 2 hours after glucose challenge for glucose tolerance test [facility] Neutrophil count [facility] Neutrophil percent differential count [facility] Patient Education After a Vaginal [facility] Work Phone: Patient referral [facility] Work Phone: Platelets [#/volume] in Blood [facility] Red blood cell count [facility] Red cell distributio n width determination [facility] Rubella IgG measurement [facility] Serologic test for syphilis [facility] Serologic test for syphilis [facility] T4 free measurement [facility] Thyroid stimulating hormone measurement [facility] Thyroid stimulating hormone measurement [facility] Payers Date Payer Category Payer Self-pay [id number] 2024 Unknown [id number] 1998 Unknown [id number] 2.16.8 40.1.294566.3.579.2.651 1998 Unknown [id number] 2.16. 840.1.348426.3.579.2.479 1998 Unknown [id number] 2.16. 840.1.880968.3.579.2.479 Unknown [id number] Unknown 87 2 Unknown [id number] 2.16.8 40.1.137273.3.579.2.462 Unknown [id number] 2.16.8 40.1.914149.3.579.2.462 Unknown [id number] 2.16.8 40.1.043971.3.579.2.462 Unknown [id number] 2.16.8 40.1.402101.3.579.2.462 Unknown [id number] 2.16.8 40.1.634595.3.579.2.462 Unknown [id number] 2.16.8 40.1.444590.3.579.2.462 Unknown [id number] 2.16.8 40.1.415925.3.579.2.462 Unknown [id number] 2.16.8 40.1.059164.3.579.2.462 Unknown [id number] 2.16.8 40.1.911771.3.579.2.462 Unknown [id number] 2.16.8 40.1.159692.3.579.2.462 Unknown [id number] 2.16.8 40.1.336974.3.579.2.462 Unknown [id number] 2.16.8 40.1.672283.3.579.2.462 Unknown [id number] 2.16.8 40.1.636795.3.579.2.462 Unknown [id number] 2.16.8 40.1.010799.3.579.2.462 Unknown [id number] 2.16.8 40.1.719959.3.579.2.462 Unknown [id number] 2.16.8 40.1.682773.3.579.2.462 Unknown [id number] 2.16.8 40.1.054541.3.579.2.462 Unknown [id number] 2.16.8 40.1.821990.3.579.2.462 Unknown [id number] 2.16.8 40.1.090343.3.579.2.462 Unknown [id number] 2.16.8 40.1.689412.3.579.2.462 Social History Date Type Detail Facility Start: 11-29-2021 End: 10-09-2023 Tobacco smoking status NHIS Unknown if ever smoked [facility] Start: 2000 Sex Assigned At Female [facility] Start: 11-04-2024 End: 04-20-2025 Tobacco smoking status NHIS Never smoked tobacco (finding) [facility] Start: 11-15-2024 End: 12-27-2024 Sex Female (finding) [facility] Sex Female [facility] NEGATED: Highlighted row No Social History Information Available No Social History Information Available [email or web address]; [email or web address] Work Phone: Medical Equipment Procedure Code Equipment Code Equipment Origin al Text Equipment Identifier Dates Appendectomy, laparoscopic RELOAD,STANDARD 45 [id number] ETH FDA Start: 03-01-2019 Appendectomy, laparoscopic RELOAD,STANDARD 45 [id number] ETH FDA Start: 03-01-2019 Appendectomy, laparoscopic RELOAD,STANDARD 45 [id number] ETH FDA Start: 03-01-2019 Appendectomy, laparoscopic RELOAD,STANDARD 45 [id number] ETH FDA Start: 03-01-2019 Appendectomy, laparoscopic RELOAD,STANDARD 45 [id number] ETH FDA Start: 03-01-2019 Appendectomy, laparoscopic RELOAD,STANDARD 45 [id number] ETH FDA Start: 03-01-2019 Appendectomy, laparoscopic RELOAD,STANDARD 45 [id number] ETH FDA Start: 03-01-2019 Appendectomy, laparoscopic RELOAD,STANDARD 45 6R45B ETH FDA Start: 03-01-2019 Appendectomy, laparoscopic RELOAD,STANDARD 45 6R45B ETH FDA Start: 03-01-2019 Appendectomy, laparoscopic RELOAD,STANDARD 45 6R45B ETH FDA Start: 03-01-2019 Appendectomy, laparoscopic RELOAD,STANDARD 45 6R45B ETH FDA Start: 03-01-2019 Appendectomy, laparoscopic RELOAD,STANDARD 45 6R45B ETH FDA Start: 03-01-2019 Appendectomy, laparoscopic RELOAD,STANDARD 45 6R45B ETH FDA Start: 03-01-2019 Appendectomy, laparoscopic RELOAD,STANDARD 45 6R45B ETH FDA Start: 03-01-2019 Appendectomy, laparoscopic RELOAD,STANDARD 45 6R45B ETH FDA Start: 03-01-2019 Appendectomy, laparoscopic RELOAD,STANDARD 45 6R45B ETH FDA Start: 03-01-2019 Appendectomy, laparoscopic RELOAD,STANDARD 45 6R45B ETH FDA Start: 03-01-2019 Appendectomy, laparoscopic RELOAD,STANDARD 45 6R45B ETH FDA Start: 03-01-2019 Appendectomy, laparoscopic RELOAD,STANDARD 45 6R45B ETH FDA Start: 03-01-2019 Appendectomy, laparoscopic RELOAD,STANDARD 45 6R45B ETH FDA Start: 03-01-2019 Appendectomy, laparoscopic RELOAD,STANDARD 45 6R45B ETH FDA Start: 03-01-2019 Appendectomy, laparoscopic RELOAD,STANDARD 45 6R45B ETH FDA Start: 03-01-2019 Appendectomy, laparoscopic RELOAD,STANDARD 45 6R45B ETH FDA Start: 03-01-2019 Appendectomy, laparoscopic RELOAD,STANDARD 45 6R45B ETH FDA Start: 03-01-2019 Goals Date Patient Goal Desired Activity /State Mental Status Date Assessment Result Facility 12-08-2022 Cognitive function Voice[facility]Name [facility] Work Phone: Clinical Notes 11-02-2024 to 06-05-2025 Note Date & Type Note Facility 06-05-2025 Progress note [facility] 05-31-2025 Progress note [facility] 05-18-2025 Progress note [facility] 05-01-2025 Progress note [facility] 05-01-2025 Progress note Note Date/Time May 01, 2025 2:22pm [facility] [address], [address] [place] [address] OFFICE VISIT Date of Service: 05/01/25 MR#: [id number] Acct: [id number] Name: MICHELINE PERALES Rep #: [id number] : 2000 Provider: BRAN Rojas Age/Sex: 25/F Location: [facility] Status: Signed Intake Vital Signs 04/20/25 09:21 04/20/25 13:17 05/01/25 14:02 Height 5 ft 1 in 5 ft 1 in 5 ft 1 in Weight: 180 lb 9 oz BMI 34.1 BP 116/78 Intake Visit Reasons: 32wk OB Wagon Driver Required: No Is patient in pain?: No Allergies No Known Allergies Allergy (Verified 05/01/25 14:01) Medications ?Medication ?Instructions ?Recorded ?Confirmed ?Type Lacto-B.anim,bifid-inulin 50 2 cap PO DAILY 11/04/24 0 05/01/25 History billion cell-50 mg capsule,delay release (Fortify Probiotic) magnesium 200 mg tablet 400 mg PO QDAY 11/04/2404/08 History vitamin B complex 1 tab PO QDAY 11/04/2405/01 History ferrous sulfate 27 mg iron tablet 27 mg PO QDAY 05/01/25 History levothyroxine 75 mcg capsule 75 mcg PO QDAY #30 caps 0 04/20/25 05/01/25 Rx Last Menstrual Period: 04/30/24 Zika: Zika virus screening: Negative : Yes Have you fallen in the past year?: No PFSH PFSH Medical History 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 Wears glasses Thyroid disease Headache Shortness of breath on exertion Leg cramps Non-smoker History of irregular heartbeat Vaginal pain Pelvic pain Vaginal delivery Thyroid disorder Hypothyroidism affecting No significant medical problems Acute appendicitis Abdominal pain Surgical History Status post dilatation and curettage History of laparoscopic appendectomy (~02/2019) Family History Brother Cancer, Onset Age: 16 Acute lymphocytic Leukemia Social History adopted: No household members: spouse and children housing: house number of children: 1 current occupational status: unemployed current occupation: [employer] pets and animals: No history of recent travel: No sexually active: Yes Smoking Status: Never smoker second hand exposure: No alcohol intake: never substance use type: does not use diet: other well-balanced diet: daily or most days caffeine: No eating out: rarely or never during the past year weight has: remained stable what type of physical activity do you participate in: none radha/mormonism: None seatbelt use: always do you feel safe at home: Yes additional social history: [employer] History 3 Elective abortions Hx Para 1 Spontaneous abortions 1 Hx # Term Pregnancies Ectopic pregnancies Hx # Pregnancies Multiple births # of living children 1 Past Pregnancies Del. Date Name GA/Weeks Outcome Route Bth Weight Infant Gen Labor Lgth Anesthesia Del Locatn Provider FOB Unknown December 2022 spontaneous 12/17/21 Romario 39 live - full term 7lbs 3oz Male epi dural [facility] Delivery Date: Last Updated by: Eileen Harrington D&C SM Delivery Date: 12/17/21 Last Updated by: Christina Russell SROM HPI 32wk OB Details: MICHELINE PERALES is a 25 year old who presents for routine OB visit. OB Visit ADONIS Calculator Estimated Delivery Date Method Current WG Current Estimate 06/26/25 Ultrasound #1 32w 0d Expected Delivery Route/Plan Labor Preferences- CB/BF classes: no labor support person: Subhash labor intervention preferences: [] pain management options preferred: probable epidural cut cord/dad catch: cord : yes PP control planned: discussed discussed possible routes of delivery and associated risks: [] special requests: [] Specific Issue/Plans Covid status: [] Flu vaccine: [] Tdap vaccine: declines Rhogam: NA LARC form signed: yes movement and labor precautions reviewed. Problem list reviewed and updated with the most current plan of care details and appropriate orders placed. Relevant counseling for the gestational age provided. Continue routine care and follow up unless otherwise noted in visit notes/problem list details Initial Weight: Not Recorded Date -?-?-?-?-?-?-?-?-?-?-?-?- EGA Weight BP Urine Prot -?-?-?-?-?-?-?-?-?-?-?-?- Glucose FHR FuHt Pres Dilation -?-?-?-?-?-?-?-?-?-?-?-?- Effaced St Visit Note 11/25/24 -?-?-?-?-?-?-?-?-?-?-?-?- 9w 4d 159 lb 4 oz 111/76 -?-?-?-?-?-?-?-?-?-?-?-?- 150 -?-?-?-?-?-?-?-?-?-?-?-?- SM- measuring co ns with previous US 12/22/24 -?-?-?-?-?-?-?-?-?-?-?-?- 13w 3d 157 lb 4 oz 102/69 Nega tive -?-?-?-?-?-?-?-?-?-?-?-?- Negative 154 -?-?-?-?-?-?-?-?-?-?-?-?- JV- no complaint s today. needs new ob labs. declines NIPT. 01/18/25 -?-?-?-?-?-?-?-?-?-?-?-?- 17w 2d 160 lb 6 oz 110/60 Nega tive -?-?-?-?-?-?-?-?-?-?-?-?- Negative 158 -?-?-?-?-?-?-?-?-?-?-?-?- -No VB. Nausea resolved. NOB labs WNL. No concerns 02/16/25 -?-?-?-?-?-?-?-?-?-?-?-?- 21w 3d 165 lb 4 oz 114/64 Nega tive -?-?-?-?-?-?-?-?-?-?-?-?- Negative 147 -?-?-?-?-?-?-?-?-?-?-?-?- MH-No VB. Good F m. Occa cramping/resolves with rest. 03/13/25 -?-?-?-?-?-?-?-?-?-?-?-?- 25w 0d 171 lb 4 oz 107/71 Nega tive -?-?-?-?-?-?-?-?-?-?-?-?- Negative 150 25 -?-?-?-?-?-?-?-?-?-?-?-?- KW- no vb/lof/ct x. good fm. glucose information given. 04/05/25 -?-?-?-?-?-?-?-?-?-?-?-?- 28w 2d 174 lb 4 oz 104/70 Nega tive -?-?-?-?-?-?-?-?-?-?-?-?- Negative 145 28 -?-?-?-?-?-?-?-?-?-?-?-?- MH-No VB, LOF. S ome dizziness, feels was heat related. Good FM. Larc. 28 wk labs pending. Declines tdap 04/20/25 -?-?-?-?-?-?-?-?-?-?-?-?- 30w 3d 177 lb 1 oz 100/65 Nega tive -?-?-?-?-?-?-?-?-?-?-?-?- Negative 145 30 -?-?-?-?-?-?-?-?-?-?-?-?- SM- no vb lof go od fm n oreuglar ctx thyroid labs drawn co some odor after intercourse and incresaed discharge- ordered flagyl 05/01/25 -?-?-?-?-?-?-?-?-?-?-?-?- 32w 0d Negative -?-?-?-?-?-?-?-?-?-?-?-?- Negative 160 32 -?-?-?-?-?-?-?-?-?-?-?-?- KW- no vb/lof/ct x. good fm. ACOG First Trimester First Trimester: Desire for , Alcohol, Tobacco Cessation, Illicit/Recreational Drug/Substance Use, Intimate Partner Violence, Barriers to care, Unstable Housing, Communication Barriers, Environmental/Work Hazards, Anticipated Course of Care, Toxoplasmosis Precations, Use of Any medications, Sexual activity, Exercise, Dental Care, Sauna/Hot tub use, Seat Belt use, Childbirth classes/Hospital facilities, , Travel, Indications for Ultrasound and Screening for Aneuploidy Second Trimester Second Trimester: Signs and Symptoms of Labor, Selecting a care provider, Reproductive Life Planning & Contreception, Care Planning, Depression/Anxiety and Intimate Partner Violence; Discussed Tobacco Cessation Third Trimester Third Trimester: Pain Management Plans, Labor support person(s), Immediate Larc, Circumcision preference, Signs and Symptoms of Preeclampsia, Infant Feeding Yes , [place] Education and Family Medical Leave or Disability Forms ROS Const Reports system reviewed and no additional complaints, except as documented Eyes Reports system reviewed and no additional complaints, except as documented ENT Reports system reviewed and no additional complaints, except as documented Card Reports system reviewed and no additional complaints, except as documented Resp Reports system reviewed and no additional complaints, except as documented GI Reports system reviewed and no additional complaints, except as documented, Denies nausea and Denies vomiting Reports system reviewed and no additional complaints, except as documented Musc Reports system reviewed and no additional complaints, except as documented Skin/Breast Reports system reviewed and no additional complaints, except as documented Neuro Yes system reviewed and no additional complaints, except as documented Psych Reports system reviewed and no additional complaints, except as documented Endo Reports system reviewed and no additional complaints, except as documented Tulio/Lymph Reports system reviewed and no additional complaints, except as documented Aller/Immun Reports system reviewed and no additional complaints, except as documented Exam Const General: cooperative, healthy appearing and no acute distress Orientation: alert, awake and oriented x3 Neck Neck: normal visual inspection and full ROM Resp Effort & Inspection: normal respiratory effort, able to speak in complete sentences and symmetric chest movement GI Inspection: normal to inspection Palpation: soft and other Other: gravid Skin General: no rashes or lesions noted Neuro General: patient alert, patient awake and patient oriented x3 Cognition: normal cognition Speech: speech normal Gait: normal gait Motor: muscle tone normal throughout Extrem General: normal to inspection and full ROM Psych Appearance: grossly normal Mental Status: mental status grossly normal Mood: congruent mood Affect: normal affect Speech and Movement: speech and movement normal Attitude: cooperative Thought Process: normal Thought Content: normal Judgment: judgment good Results POC Urinalysis 2 Dip (Clinic) Office Urine Glucose Negative Last Edit by Divya Braden on 05/01/25 14:06 Office Urine Protein Negative Last Edit by Divya Braden on 05/01/25 14:06 Coding Level of Care Code OB Routine Diagnoses Supervision of high risk in third trimester O09.93 Trimester: third trimester Hx of one miscarriage Z87.59 32 weeks gestation of Z3A.32 Weeks of gestation: 32 weeks 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 on levothyroxine 75 mcg.TSH receptor antibody neg. Orders: Orders POC Urinalysis 2 Dip (Clinic) Today Plan Details Additional Comments: ACOG trimester education reviewed and updated. see problem list details for updated plan management information and see below for orders placed at this visit. GA appropriate handout given. Clinical Quality Measures Falls Risk Screening/Assistive Devices Have you fallen in the past year?: No 05/01/25 8754 <Electronically signed by Jacinta mandujano CNM> Date _ Jacinta Rojas CNM Cosigner Signature: Date (if applicable) CC: ~ [facility] Work Phone: 1(155) 263-555307-30-2025 [facility] [address] [place] [address], [address] [place] [address] OFFICE VISIT Date of Service: 04/05/25 MR#: [id number] Acct: [id number] Name: MICHELINE PERALES Rep #: [id number] : 2000 Provider: SANTIAGO Acosta Age/Sex: 24/F Location: [facility] Status: Signed Intake Vital Signs 01/18/25 13:04 03/13/25 13:20 04/05/25 09:58 04/05/25 10:02 Height 5 ft 1 in 5 ft 1 in 5 ft 1 in 5 ft 1 in Weight: 174 lb 4 oz BMI 32.9 BP 104/70 Intake Visit Reasons: 28 wk ob/glucose Chief Complaint: 28 Week OB/Glucose Wagon Driver Required: No Is patient in pain?: No Allergies No Known Allergies Allergy (Verified 04/05/25 10:01) Medications ?Medication ?Instructions ?Recorded ?Confirmed ?Type Lacto-B.anim,bifid-inulin 50 2 cap PO DAILY 11/04/24 0 04/05/25 History billion cell-50 mg capsule,delay release (Fortify Probiotic) levothyroxine 37.5 mcg capsule 37.5 mcg PO QDAY 04/05/25 History magnesium 200 mg tablet 400 mg PO QDAY 11/04/24 07/ History vitamin B complex 1 tab PO QDAY 11/04/2404/05 History ferrous sulfate 27 mg iron tablet 27 mg PO QDAY 04/05/25 History Last Menstrual Period: 04/30/24 Zika: Zika virus screening: Negative : Yes PFSH PFSH Medical History 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 Wears glasses Thyroid disease Headache Shortness of breath on exertion Leg cramps Non-smoker History of irregular heartbeat Vaginal pain Pelvic pain Vaginal delivery Thyroid disorder Hypothyroidism affecting No significant medical problems Acute appendicitis Abdominal pain Surgical History Status post dilatation and curettage History of laparoscopic appendectomy (~02/2019) Family History Brother Cancer, Onset Age: 16 Acute lymphocytic Leukemia Social History adopted: No household members: spouse and children housing: house number of children: 1 current occupational status: unemployed current occupation: [employer] pets and animals: No history of recent travel: No sexually active: Yes Smoking Status: Never smoker second hand exposure: No alcohol intake: never substance use type: does not use diet: other well-balanced diet: daily or most days caffeine: No eating out: rarely or never during the past year weight has: remained stable what type of physical activity do you participate in: none radha/mormonism: None seatbelt use: always do you feel safe at home: Yes additional social history: [employer] History 3 Elective abortions Hx Para 1 Spontaneous abortions 1 Hx # Term Pregnancies Ectopic pregnancies Hx # Pregnancies Multiple births # of living children 1 Past Pregnancies Del. Date Name GA/Weeks Outcome Route Bth Weight Infant Gen Labor Lgth Anesthesia Del Locatn Provider FOB Unknown December 2022 spontaneous 12/17/21 Romario 39 live - full term 7lbs 3oz Male epi dural [facility] Delivery Date: Last Updated by: Eileen Harrington D&C SM Delivery Date: 12/17/21 Last Updated by: Christina KING HPI 28 wk ob/glucose Details: MICHELINE PERALES is a 24 year old who presents for routine OB visit. OB Visit ADONIS Calculator 2 Estimated Delivery Date Method Current WG Current Estimate 06/26/25 Ultrasound #1 28w 2d Expected Delivery Route/Plan Labor Preferences- CB/BF classes: no labor support person: Subhash labor intervention preferences: [] pain management options preferred: probable epidural cut cord/dad catch: cord : yes PP control planned: discussed discussed possible routes of delivery and associated risks: [] special requests: [] Specific Issue/Plans Covid status: [] Flu vaccine: [] Tdap vaccine: declines Rhogam: NA LARC form signed: yes Problem list reviewed and updated with the most current plan of care details and appropriate ordersplaced. Relevant counseling for the gestational age provided. Continue routine care and follow up unless otherwise noted in visit notes/problem list details Initial Weight: Not Recorded Date -?-?-?-?-?-?-?-?-?-?-?-?- EGA Weight BP Urine Prot -?-?-?-?-?-?-?-?-?-?-?-?- Glucose FHR FuHt Pres Dilation -?-?-?-?-?-?-?-?-?-?-?-?- Effaced St Visit Note 11/25/24 -?-?-?-?-?-?-?-?-?-?-?-?- 9w 4d 159 lb 4 oz 111/76 -?-?-?-?-?-?-?-?-?-?-?-?- 150 -?-?-?-?-?-?-?-?-?-?-?-?- SM- measuring co ns with previous US 12/22/24 -?-?-?-?-?-?-?-?-?-?-?-?- 13w 3d 157 lb 4 oz 102/69 Nega tive -?-?-?-?-?-?-?-?-?-?-?-?- Negative 154 -?-?-?-?-?-?-?-?-?-?-?-?- JV- no complaint s today. needs new ob labs. declines NIPT. 01/18/25 -?-?-?-?-?-?-?-?-?-?-?-?- 17w 2d 160 lb 6 oz 110/60 Nega tive -?-?-?-?-?-?-?-?-?-?-?-?- Negative 158 -?-?-?-?-?-?-?-?-?-?-?-?- -No VB. Nausea resolved. NOB labs WNL. No concerns 02/16/25 -?-?-?-?-?-?-?-?-?-?-?-?- 21w 3d 165 lb 4 oz 114/64 Nega tive -?-?-?-?-?-?-?-?-?-?-?-?- Negative 147 -?-?-?-?-?-?-?-?-?-?-?-?- MH-No VB. Good F m. Occa cramping/resolves with rest. 03/13/25 -?-?-?-?-?-?-?-?-?-?-?-?- 25w 0d 171 lb 4 oz 107/71 Nega tive -?-?-?-?-?-?-?-?-?-?-?-?- Negative 150 25 -?-?-?-?-?-?-?-?-?-?-?-?- KW- no vb/lof/ct x. good fm. glucose information given. 04/05/25 -?-?-?-?-?-?-?-?-?-?-?-?- 28w 2d 174 lb 4 oz 104/70 Nega tive -?-?-?-?-?-?-?-?-?-?-?-?- Negative 145 28 -?-?-?-?-?-?-?-?-?-?-?-?- MH-No VB, LOF. S ome dizziness, feels was heat related. Good FM. Larc. 28 wk labs pending. Declines tdap ACOG First Trimester First Trimester: Desire for , Alcohol, Tobacco Cessation, Illicit/Recreational Drug/Substance Use, Intimate Partner Violence, Barriers to care, Unstable Housing, Communication Barriers, Environmental/Work Hazards, Anticipated Course of Care, Toxoplasmosis Precations, Use of Any med ications, Sexual activity, Exercise, Dental Care, Sauna/Hot tub use, Seat Belt use, Childbirth classes/Hospital facilities, , Travel, Indications for Ultrasound and Screening for Aneuploidy Second Trimester Second Trimester: Signs and Symptoms of Labor, Selecting a care provider, Reproductive Life Planning & Contreception, Care Planning, Depression/Anxiety and Intimate Partner Violence; Discussed Tobacco Cessation Third Trimester Third Trimester: Pain Management Plans, Labor support person(s), Immediate Larc, Circumcision preference, Signs and Symptoms of Preeclampsia, Infant Feeding Yes , [place] Education and Family Medical Leave or Disability Forms ROS Const Reports system reviewed and no additional complaints, except as documented GI Denies abdominal pain, Denies nausea and Denies vomiting Exam Const General: cooperative Nutritional Appearance: well nourished GI Palpation: soft, nontender and other (gravid) Results POC Urinalysis 2 Dip (Clinic) Office Urine Glucose Negative Last Edit by Hui Gandara on 04/05/25 10 :03 Office Urine Protein Negative Last Edit by Hui Gandara on 04/05/25 10 :03 Coding Level of Care Code OB Routine Diagnoses Supervision of high risk in third trimester O09.93 Trimester: third trimester Hx of one miscarriage Z87.59 25 weeks gestation of Z3A.25 Weeks of gestation: 25 weeks 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 (4) 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: Status: Acute Comment: tsh/free t4 checked at other provider- WNL. on levothyroxine 75 mcg.TSH receptor antibody neg. Orders: Orders POC Urinalysis 2 Dip (Clinic) Today Plan problem list reviewed and updated for most current plan of care and appropriate orders placed. Relevant counseling for the gestational age appropriate provided and ACOG education checklist updated. Continue routine care and follow up. 04/05/25 1016 s FEED PROJECT ENGINEER FEED PROJECT ENGINEER-C> Date _ Mariana Acosta FEED PROJECT ENGINEER FEED PROJECT ENGINEER-C Candi Signature: Date (if applicable) CC: ~ [facility]07-07-2025 [facility] [address] [place] [address], [address] [place] [address] OFFICE VISIT Date of Service: 03/13/25 MR#: [id number] Acct: [id number] Name: MICHELINE PERALES Rep #: [id number] : 2000 Provider: BRAN Rojas Age/Sex: 24/F Location: [facility] Status: Signed Intake Vital Signs 01/18/25 13:04 02/16/25 09:48 03/13/25 13:20 Height 5 ft 1 in 5 ft 1 in 5 ft 1 in Weight: 171 lb 4 oz BMI 32.3 BP 107/71 Intake Visit Reasons: 25 wk ob Chief Complaint: 25wk OB Wagon Driver Required: No Is patient in pain?: No Allergies No Known Allergies Allergy (Verified 03/13/25 13:22) Medications ?Medication ?Instructions ?Recorded ?Confirmed ?Type Lacto-B.anim,bifid-inulin 50 2 cap PO DAILY 11/04/24 0 03/13/25 History billion cell-50 mg capsule,delay release (Fortify Probiotic) levothyroxine 37.5 mcg capsule 37.5 mcg PO QDAY 03/13/25 History magnesium 200 mg tablet 400 mg PO QDAY 11/04/2403/31 History vitamin B complex 1 tab PO QDAY 11/04/2403/13 History Last Menstrual Period: 04/30/24 : No PFSH PFSH Medical History 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 Wears glasses Thyroid disease Headache Shortness of breath on exertion Leg cramps Non-smoker History of irregular heartbeat Vaginal pain Pelvic pain Vaginal delivery Thyroid disorder Hypothyroidism affecting No significant medical problems Acute appendicitis Abdominal pain Surgical History Status post dilatation and curettage History of laparoscopic appendectomy (~02/2019) Family History Brother Cancer, Onset Age: 16 Acute lymphocytic Leukemia Social History adopted: No household members: spouse and children housing: house number of children: 1 current occupational status: unemployed current occupation: [employer] pets and animals: No history of recent travel: No sexually active: Yes Smoking Status: Never smoker second hand exposure: No alcohol intake: never substance use type: does not use diet: other well-balanced diet: daily or most days caffeine: No eating out: rarely or never during the past year weight has: remained stable what type of physical activity do you participate in: none radha/mormonism: None seatbelt use: always do you feel safe at home: Yes additional social history: [employer] History 3 Elective abortions Hx Para 1 Spontaneous abortions 1 Hx # Term Pregnancies Ectopic pregnancies Hx # Pregnancies Multiple births # of living children 1 Past Pregnancies Del. Date Name GA/Weeks Outcome Route Bth Weight Gen Labor Lgth Anesthesia Del Locatn Provider FOB Unknown December 2022 spontaneous 12/17/21 Romario 39 live - full term 7lbs 3oz Male epi dural [facility] Subhash Delivery Date: Last Updated by: Eileen Harrington D&C SM Delivery Date: 12/17/21 Last Updated by: Christina Russell SROM HPI 25 wk ob Details: MICHELINE PERALES is a 24 year old who presents for routine OB visit. OB Visit ADONIS Calculator Estimated Delivery Date Method Current WG Current Estimate 06/26/25 Ultrasound #1 25w 0d Expected Delivery Route/Plan Labor Preferences- CB/BF classes: [] labor support person: [] labor intervention preferences: [] pain management options preferred: [] cut cord/dad catch: [] : [] PP control planned: [] discussed possible routes of delivery and associated risks: [] special requests: [] Specific Issue/Plans Covid status: [] Flu vaccine: [] Tdap vaccine: [] Rhogam: [] LARC form signed: [] Problem list reviewed and updated with the most current plan of care details and appropriate ordersplaced. Relevant counseling for the gestational age provided. Continue routine care and follow up unless otherwise noted in visit notes/problem list details Initial Weight: Not Recorded Date -?-?-?-?-?-?-?-?-?-?-?-?- EGA Weight BP Urine Prot -?-?-?-?-?-?-?-?-?-?-?-?- Glucose FHR FuHt Pres Dilation -?-?-?-?-?-?-?-?-?-?-?-?- Effaced St Visit Note 11/25/24 -?-?-?-?-?-?-?-?-?-?-?-?- 9w 4d 159 lb 4 oz 111/76 -?-?-?-?-?-?-?-?-?-?-?-?- 150 -?-?-?-?-?-?-?-?-?-?-?-?- SM- measuring co ns with previous US 12/22/24 -?-?-?-?-?-?-?-?-?-?-?-?- 13w 3d 157 lb 4 oz 102/69 Nega tive -?-?-?-?-?-?-?-?-?-?-?-?- Negative 154 -?-?-?-?-?-?-?-?-?-?-?-?- JV- no complaint s today. needs new ob labs. declines NIPT. 01/18/25 -?-?-?-?-?-?-?-?-?-?-?-?- 17w 2d 160 lb 6 oz 110/60 Nega tive -?-?-?-?-?-?-?-?-?-?-?-?- Negative 158 -?-?-?-?-?-?-?-?-?-?-?-?- MH-No VB. Nausea resolved. NOB labs WNL. No concerns 02/16/25 -?-?-?-?-?-?-?-?-?-?-?-?- 21w 3d 165 lb 4 oz 114/64 Nega tive -?-?-?-?-?-?-?-?-?-?-?-?- Negative 147 -?--?-?-?-?-?-?-?-?-?-?-?- MH-No VB. Good F m. Occa cramping/resolves with rest. 03/13/25 -?-?-?-?-?-?-?-?-?-?-?-?- 25w 0d 171 lb 4 oz 107/71 Nega tive -?-?--?-?-?-?-?-?-?-?-?-?- Negative 150 25 -?-?-?-?-?-?-?-?-?-?-?-?- KW- no vb/lof/ct x. good fm. glucose information given. ACOG First Trimester First Trimester: Desire for , Alcohol, Tobacco Cessation, Illicit/Recreational Drug/Substance Use, Intimate Partner Violence, Barriers to care, Unstable Housing, Communication Barriers, Environmental/Work Hazards, Anticipated Course of Care, Toxoplasmosis Precations, Use of Any med ications, Sexual activity, Exercise, Dental Care, Sauna/Hot tub use, Seat Belt use, Childbirth classes/Hospital facilities, Travel, Indications for Ultrasound and Screening for Aneuploidy; Discussed Second Trimester Second Trimester: Signs and Symptoms of Labor, Selecting a care provider, Reproductive Life Planning & Contreception, Care Planning, Depression/Anxiety and Intimate Partner Violence; Discussed Tobacco Cessation Third Trimester Third Trimester: Pain Management Plans, Labor support person(s), Immediate Larc, Circumcision preference, Signs and Symptoms of Preeclampsia, Infant Feeding No and Education ROS Const Reports system reviewed and no additional complaints, except as documented Eyes Reports system reviewed and no additional complaints, except as documented ENT Reports system reviewed and no additional complaints, except as documented Card Reports system reviewed and no additional complaints, except as documented Resp Reports system reviewed and no additional complaints, except as documented GI Reports system reviewed and no additional complaints, except as documented, Denies nausea and Denies vomiting Reports system reviewed and no additional complaints, except as documented Musc Reports system reviewed and no additional complaints, except as documented Skin/Breast Reports system reviewed and no additional complaints, except as documented Neuro Yes system reviewed and no additional complaints, except as documented Psych Reports system reviewed and no additional complaints, except as documented Endo Reports system reviewed and no additional complaints, except as documented Tulio/Lymph Reports system reviewed and no additional complaints, except as documented Aller/Immun Reports system reviewed and no additional complaints, except as documented Exam Const General: cooperative, healthy appearing and no acute distress Orientation: alert, awake and oriented x3 Neck Neck: normal visual inspection and full ROM Resp Effort & Inspection: normal respiratory effort, able to speak in complete sentences and symmetric chest movement GI Inspection: normal to inspection Palpation: soft and other Other: gravid Skin General: no rashes or lesions noted Neuro General: patient alert, patient awake and patient oriented x3 Cognition: normal cognition Speech: speech normal Gait: normal gait Motor: muscle tone normal throughout Extrem General: normal to inspection and full ROM Psych Appearance: grossly normal Mental Status: mental status grossly normal Mood: congruent mood Affect: normal affect Speech and Movement: speech and movement normal Attitude: cooperative Thought Process: normal Thought Content: normal Judgment: judgment good Results POC Urinalysis 2 Dip (Clinic) Office Urine Glucose Negative Last Edit by Regina Jain on 03/13/25 13:28 Office Urine Protein Negative Last Edit by Regina Jain on 03/13/25 13:28 Coding Level of Care Code OB Routine Diagnoses Supervision of high risk in second trimester O09.92 Trimester: second trimester Hx of one miscarriage Z87.59 25 weeks gestation of Z3A.25 Weeks of gestation: 25 weeks 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 on levothyroxine 75 mcg.TSH receptor antibody neg. Orders: Orders POC Urinalysis 2 Dip (Clinic) Today CBC W/Diff, Automated Today O09.92 - Supervision of high risk , unspecified, second trimester, Z3A.25 - 25 weeks gestation of Glucose Challenge Gest 1H 50g Today Z13.1 - Encounter for screening for diabetes mellitus HIV Today Syphilis Antibodies Today O09.92 - Supervision of high risk , unspecified, second trimester, Z3A.25 - 25 weeks gestation of Plan Details Additional Comments: ACOG trimester education reviewed and updated. see problem list details for updated plan management information and see below for orders placed atthis visit. GA appropriate handout given. 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 acute March 1:15pm acute March 13, 2025 1:15pm Supervision of high-risk acute March 13, 2025 1 :15pm Hx of one miscarriage acute Mar 9:36am 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 acute March 9:36am acute April 05 9:36am Supervision of high-risk acute April 05, 2025 9:36am Hx of one miscarriage acute Apr 9:14am 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 acute April 072024 9:14am acute April 20, 9:14am Supervision of high-risk acute April 20 9:14am Hx of one miscarriage acute Apr 1:59pm 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 acute April 082024 1:59pm acute May 01, 025 1:59pm Supervision of high-risk acute May 01 1:59pm Hx of one miscarriage acute May 9:46am 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 acute 2024 9:46am acute May 9:46am Supervision of high-risk acute May 18, 2025 9:46am Hx of one miscarriage acute Sep 2024 9:22am 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 acute 2024 9:22am acute May 9:22am Supervision of high-risk acute May 31, 2025 9:22am Hx of one miscarriage acute Sep 2024 8:43am 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 acute 2024 8:43am acute May 8:43am Supervision of high-risk acute June 05, 2025 8:43am [facility] Work Phone: 1(529) 290-552906-12-2025 Evaluation note* Diagnosis Onset Date Resolution Status Admit Date Hx of one miscarriage acute Feb 9:35am 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 acute February 9:35am acute February 16 9:35am Supervision of high-risk acute February 16, 2025 9:35am Hx of one miscarriage acute Mar 1:15pm 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 acute March 1:15pm acute March 13, 2025 1:15pm Supervision of high-risk acute March 13, 2025 1 :15pm Hx of one miscarriage acute Mar 9:36am 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 acute March 9:36am acute April 05 9:36am Supervision of high-risk acute April 05, 2025 9:36am Hx of one miscarriage acute Apr 9:14am 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 acute April 072024 9:14am acute April 20, 2 025 9:14am Supervision of high-risk acute April 20 9:14am Hx of one miscarriage acute Apr 1:59pm 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 acute April 082024 1:59pm acute May 01, 2 025 1:59pm Supervision of high-risk acute May 01 1:59pm Hx of one miscarriage acute May 9:46am 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 acute 2024 9:46am acute May 9:46am Supervision of high-risk acute May 18, 2025 9:46am Hx of one miscarriage acute May 9:22am 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 acute 2024 9:22am acute May 9:22am Supervision of high-risk acute May 31, 2025 9:22am Hx of one miscarriage acute May 8:43am 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 acute 2024 8:43am acute May 8:43am Supervision of high-risk acute June 05, 2025 8:43am Hx of one miscarriage acute Jun 11:37am 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 acute June 14, 2025 11:37am acute June 14, 2 025 11:37am Supervision of high-risk acute June 14 11:37am [facility] Work Phone: 1(577) 315-649305-14-2025 Evaluation note* Diagnosis Onset Date Resolution Status Admit Date Hx of one miscarriage acute January 18, 2025 12:45pm 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 acute January 12:45pm acute January 18, 2025 12:45pm Supervision of high-risk acute January 18, 2025 1 2:45pm Hx of one miscarriage acute Feb 9:35am 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 acute February 9:35am acute February 16 9:35am Supervision of high-risk acute February 16, 2025 9:35am Hx of one miscarriage acute Mar 1:15pm 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 acute March 1:15pm acute March 13, 2025 1:15pm Supervision of high-risk acute March 13, 2025 1 :15pm Hx of one miscarriage acute Mar 9:36am 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 acute March 9:36am acute April 05 9:36am Supervision of high-risk acute April 05, 2025 9:36am Hx of one miscarriage acute Apr us2024 9:14am 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 acute April 072024 9:14am acute April 20, 2 025 9:14am Supervision of high-risk acute April 20 9:14am Hx of one miscarriage acute Apr 1:59pm 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 acute April 082024 1:59pm acute May 01, 025 1:59pm Supervision of high-risk acute May 01 1:59pm [facility] Work Phone: 1(358) 461-357805-14-2025 Evaluation note* Diagnosis Onset Date Resolution Status Admit Date Hx of one miscarriage acute January 18, 2025 12:45pm 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 acute January 12:45pm acute January 18, 2025 12:45pm Supervision of high-risk acute January 18, 2025 1 2:45pm Hx of one miscarriage acute Feb 9:35am 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 acute February 9:35am acute February 16 9:35am Supervision of high-risk acute February 16, 2025 9:35am Hx of one miscarriage acute Mar 1:15pm 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 acute March 1:15pm acute March 13, 2025 1:15pm Supervision of high-risk acute March 13, 2025 1 :15pm Hx of one miscarriage acute Mar 9:36am 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 acute March 9:36am acute April 05 9:36am Supervision of high-risk acute April 05, 2025 9:36am Hx of one miscarriage acute Apr 9:14am 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 acute April 072024 9:14am acute April 20, 025 9:14am Supervision of high-risk acute April 20 9:14am Hx of one miscarriage acute Apr 1:59pm 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 acute April 082024 1:59pm acute May 01, 2 025 1:59pm Supervision of high-risk acute May 01 1:59pm Hx of one miscarriage acute May 9:46am 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 acute 2024 9:46am acute May 9:46am Supervision of high-risk acute May 18, 2025 9:46am [facility] Work Phone: 1(971) 352-522004-17-2025 Evaluation note* Diagnosis Onset Date Resolution Status Admit Date Hx of one miscarriage acute Dec 10:00am 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 acute December 222024 10:00am acute December 22 10:00am Supervision of high-risk acute December 22, 2024 10:00am Infertility associated with anovulation resolved December 22, 2024 10:00am Early stage of deleted December 22, 2024 10:00am Hx of one miscarriage acute January 18, 2025 12:45pm 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 acute January 12:45pm acute January 18, 2025 12:45pm Supervision of high-risk acute January 18, 2025 1 2:45pm Hx of one miscarriage acute Feb 9:35am 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 acute February 9:35am acute February 16 9:35am Supervision of high-risk acute February 16, 2025 9:35am Hx of one miscarriage acute Mar 1:15pm 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 acute March 1:15pm acute March 13, 2025 1:15pm Supervision of high-risk acute March 13, 2025 1 :15pm Hx of one miscarriage acute Mar 9:36am 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 acute March 9:36am acute April 05 9:36am Supervision of high-risk acute April 05, 2025 9:36am [facility] Work Phone: 1(657) 818-144604-17-2025 Evaluation note* Diagnosis Onset Date Resolution Status Admit Date Hx of one miscarriage acute Dec 10:00am 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 acute December 222024 10:00am acute December 22 10:00am Supervision of high-risk acute December 22, 2024 10:00am Infertility associated with anovulation resolved December 22, 2024 10:00am Early stage of deleted December 22, 2024 10:00am Hx of one miscarriage acute January 18, 2025 12:45pm 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 acute January 12:45pm acute January 18, 2025 12:45pm Supervision of high-risk acute January 18, 2025 1 2:45pm Hx of one miscarriage acute Feb 9:35am 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 acute February 9:35am acute February 16 9:35am Supervision of high-risk acute February 16, 2025 9:35am Hx of one miscarriage acute Mar 1:15pm 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 acute March 1:15pm acute March 13, 2025 1:15pm Supervision of high-risk acute March 13, 2025 1 :15pm Hx of one miscarriage acute Mar 9:36am 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 Endocervical and/or squamous metaplasticcells (endocervical component)are present.[facility] A#[id number]. Charles HospitalComment on above:Satisfactory for evaluation. Endocervical and/or squamous metaplasticcells (endocervical component)are present.11-25-2024 NotePap Smear Specimen AdequacyMarch 2024 11:59pmComment.Satisfactory for evaluation. Endocervical and/or squamous metaplasticcells (endocervical component)are present.[facility] A#[id number]. Charles HospitalComment on above:Satisfactory for evaluation. Endocervical and/or squamous metaplasticcells (endocervical component)are present.11-25-2024 Evaluation note* Diagnosis Onset Date Resolution Status Admit Date Early stage of acute November 25, 2024 1:38pm Hx of one miscarriage acute Nov 1:38pm Hypothyroidism due to Hashim parveen's thyroiditis acute November 25, 2024 1:38pm acute November 25 1:38pm Supervision of high-risk acute November 25, 2024 1:38pm [facility] Work Phone: 1(667) 986-253703-21-2025 Evaluation note* Diagnosis Onset Date Resolution Status Admit Date Early stage of acute November 25, 2024 1:38pm Hx of one miscarriage acute Nov 1:38pm Hypothyroidism due to Hashim parveen's thyroiditis acute November 25, 2024 1:38pm acute November 25 1:38pm Supervision of high-risk acute November 25, 2024 1:38pm Early stage of acute December 22, 2024 10:00am Hx of one miscarriage acute Dec 10:00am Hypothyroidism due to Hashim parveen's thyroiditis acute December 22, 2024 10:00am Infertility associated with anovulation acute December 22, 2024 10:00am acute December 22 10:00am Supervision of high-risk acute December 22, 2024 10:00am 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 acute December 222024 10:00am acute December 22 10:00am Supervision of high-risk acute December 22, 2024 10:00am Infertility associated with anovulation resolved December 22, 2024 10:00am Early stage of deleted December 22, 2024 10:00am Hx of one miscarriage acute January 18, 2025 12:45pm 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 acute January 12:45pm acute January 18, 2025 12:45pm Supervision of high-risk acute January 18, 2025 1 2:45pm [facility] Work Phone: 1(877) 418-969703-21-2025 Evaluation note* Diagnosis Onset Date Resolution Status Admit Date Hx of one miscarriage acute Nov 1:38pm 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 acute November 252024 1:38pm acute November 25 1:38pm Supervision of high-risk acute November 25, 2024 1:38pm Early stage of deleted November 25, 2024 1:38pm Hx of one miscarriage acute Apr 2024 10:00am 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 acute December 222024 10:00am acute December 22 10:00am Supervision of high-risk acute December 22, 2024 10:00am Infertility associated with anovulation resolved December 22, 2024 10:00am Early stage of deleted December 22, 2024 10:00am Hx of one miscarriage acute January 18, 2025 12:45pm 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 acute January 12:45pm acute January 18, 2025 12:45pm Supervision of high-risk acute January 18, 2025 1 2:45pm Hx of one miscarriage acute Feb 9:35am 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 acute February 9:35am acute February 16 9:35am Supervision of high-risk acute February 16, 2025 9:35am [facility] Work Phone: 1(246) 479-580903-21-2025 Evaluation note* Diagnosis Onset Date Resolution Status Admit Date Hx of one miscarriage acute Nov 1:38pm 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 acute November 252024 1:38pm acute November 25 1:38pm Supervision of high-risk acute November 25, 2024 1:38pm Early stage of deleted November 25, 2024 1:38pm Hx of one miscarriage acute Dec 10:00am 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 acute December 222024 10:00am acute December 22 10:00am Supervision of high-risk acute December 22, 2024 10:00am Infertility associated with anovulation resolved December 22, 2024 10:00am Early stage of deleted December 22, 2024 10:00am Hx of one miscarriage acute January 18, 2025 12:45pm 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 acute January 12:45pm acute January 18, 2025 12:45pm Supervision of high-risk acute January 18, 2025 1 2:45pm Hx of one miscarriage acute Feb 9:35am 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 Imaging Services [address] [place], [place] [address] Transvaginal w/Preg MR#: [id number] Acct: [id number] Name: MICHELINE PERALES Rep #: [id number] 05 : 2000 F 24 From: Artemio Restrepo MD PCP: LUIS F Leiva Status: REG C DOROTHY Study:Transvaginal w/Preg US Date of Exam: 11/02/24 Exam# [id number] Ordering Dr: Rocio Stoner MD PROCEDURE: TRANSVAGINAL W/PREG US REASON FOR EXAM: Dating. COMPARISON: None. FINDINGS The uterus measures 9.6 x 6.9 x 4.8 cm. No fibroids. A gestational sac is present which dates 6 weeks and 2 days. The yolk sac is visualized. An embryo is visualized with a heart rate of 108. [place]- rump length measures 6weeks and 2 days. EGA by ultrasound of 6 weeks and 2 days. ADONIS by ultrasound of 06/26/2025. Right ovary measures 6.1 x 3.2 x 2.6 cm. Right ovarian dominant follicle which measures 2.6 cm. No adnexal mass. Preserved flow within the right ovary. Left ovary measures 4.0 x 2.6 x 2.1 cm. No adnexal mass. Preserved flow withinthe left ovary. Minimal free fluid in the cul-de-sac. US/Transvaginal w/Preg US IMPRESSION: Single live intrauterine as above. Reading Location: [place] [address] CC: Dr. Rocio Persaud MD; LUIS F Leiva ~ Knitter Helper: [facility] Diagnosis Onset Date Resolution Status Hypothyroidism affecting acute acute Supervision of normal acute Thyroiditis resolved Thyromegaly resolved Hypothyroidism affecting acute acute Supervision of normal acute Thyromegaly resolved Hypothyroidism affecting acute acute Supervision of normal acute Hypothyroidism affecting acute acute Supervision of normal acute Refuses tetanus, diphtheria, and acellular pertussis (Tdap) vaccination resolved Hypothyroidism affecting acute acute Supervision of normal acute Hypothyroidism affecting acute acute Supervision of normal acute Hypothyroidism affecting acute acute Supervision of normal acute [facility] Work Phone: Evaluation note* Diagnosis Onset Date Resolution Status Hypothyroidism affecting acute resolved Supervision of normal resolved Thyromegaly resolved Hypothyroidism affecting acute resolved Supervision of normal resolved Hypothyroidism affecting acute resolved Refuses tetanus, diphtheria, and acellular pertussis (Tdap) vaccination resolved Supervision of normal resolved Hypothyroidism affecting acute resolved Supervision of normal resolved Hypothyroidism affecting acute resolved Supervision of normal resolved Hypothyroidism affecting acute resolved Supervision of normal resolved Hypothyroidism affecting acute resolved Supervision of normal resolved Hypothyroidism affecting acute resolved Supervision of normal resolved Hypothyroidism affecting acute resolved Supervision of normal resolved [facility] Work Phone: Evaluation note* Diagnosis Onset Date Resolution Status Hypothyroidism affecting resolved resolved Supervision of normal resolved Hypothyroidism affecting resolved resolved Supervision of normal resolved Hypothyroidism affecting resolved resolved Supervision of normal resolved Hypothyroidism affecting resolved resolved Supervision of normal resolved Vaginal delivery acute Hypothyroidism affecting resolved resolved Supervision of normal resolved Vaginal delivery acute [facility] Work Phone: Evaluation note* Diagnosis Onset Date Resolution Status Hypothyroidism affecting resolved resolved Supervision of normal resolved Hypothyroidism affecting resolved resolved Supervision of normal resolved Vaginal delivery acute Hypothyroidism affecting resolved resolved Supervision of normal resolved Vaginal delivery acute Vaginal pain acute [facility] Work Phone: Evaluation note* Diagnosis Onset Date Resolution Status Missed resolved Obesity affecting resolved resolved Supervision of high risk , antepartum resolved Thyroid disorder resolved Status post dilatation and curettage acute Missed resolved Postoperative examination no neactive 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 Work Phone: Evaluation noteNo assessment information available [facility] Work Phone: Progress note Author Jacinta Rojas [facility] Note Date/Time March 13, 2025 1:40p m [facility] [address] [place] [address], [address] [place] [address] OFFICE VISIT Date of Service: 03/13/25 MR#: [id number] Acct: [id number] Name: MICHELINE PERALES Rep #: [id number] : 2000 Provider: BRAN Rojas Age/Sex: 24/F Location: [facility] Status: Signed Intake Vital Signs 01/18/25 13:04 02/16/25 09:48 03/13/25 13:20 Height 5 ft 1 in 5 ft 1 in 5 ft 1 in Weight: 171 lb 4 oz BMI 32.3 BP 107/71 Intake Visit Reasons: 25 wk ob Chief Complaint: 25wk OB Wagon Driver Required: No Is patient in pain?: No Allergies No Known Allergies Allergy (Verified 03/13/25 13:22) Medications ?Medication ?Instructions ?Recorded ?Confirmed ?Type Lacto-B.anim,bifid-inulin 50 2 cap PO DAILY 11/04/24 0 03/13/25 History billion cell-50 mg capsule,delay release (Fortify Probiotic) levothyroxine 37.5 mcg capsule 37.5 mcg PO QDAY 03/13/25 History magnesium 200 mg tablet 400 mg PO QDAY 11/04/2403/31 History vitamin B complex 1 tab PO QDAY 11/04/2403/13 History Last Menstrual Period: 04/30/24 : No PFSH PFSH Medical History 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 Wears glasses Thyroid disease Headache Shortness of breath on exertion Leg cramps Non-smoker History of irregular heartbeat Vaginal pain Pelvic pain Vaginal delivery Thyroid disorder Hypothyroidism affecting No significant medical problems Acute appendicitis Abdominal pain Surgical History Status post dilatation and curettage History of laparoscopic appendectomy (~02/2019) Family History Brother Cancer, Onset Age: 16 Acute lymphocytic Leukemia Social History adopted: No household members: spouse and children housing: house number of children: 1 current occupational status: unemployed current occupation: [employer] pets and animals: No history of recent travel: No sexually active: Yes Smoking Status: Never smoker second hand exposure: No alcohol intake: never substance use type: does not use diet: other well-balanced diet: daily or most days caffeine: No eating out: rarely or never during the past year weight has: remained stable what type of physical activity do you participate in: none radha/mormonism: None seatbelt use: always do you feel safe at home: Yes additional social history: [employer] History 3 Elective abortions Hx Para 1 Spontaneous abortions 1 Hx # Term Pregnancies Ectopic pregnancies Hx # Pregnancies Multiple births # of living children 1 Past Pregnancies Del. Date Name GA/Weeks Outcome Route Bth Weight Gen Labor Lgth Anesthesia Del Locatn Provider FOB Unknown December 2022 spontaneous 12/17/21 Romario 39 live - full term 7lbs 3oz Male epi dural [facility] Delivery Date: Last Updated by: Eileen Harrington D&C SM Delivery Date: 12/17/21 Last Updated by: Christina Russell SROM HPI 25 wk ob Details: MICHELINE PERALES is a 24 year old who presents for routine OB visit. OB Visit ADONIS Calculator Estimated Delivery Date Method Current WG Current Estimate 06/26/25 Ultrasound #1 25w 0d Expected Delivery Route/Plan Labor Preferences- CB/BF classes: [] labor support person: [] labor intervention preferences: [] pain management options preferred: [] cut cord/dad catch: [] : [] PP control planned: [] discussed possible routes of delivery and associated risks: [] special requests: [] Specific Issue/Plans Covid status: [] Flu vaccine: [] Tdap vaccine: [] Rhogam: [] LARC form signed: [] Problem list reviewed and updated with the most current plan of care details and appropriate orders placed. Relevant counseling for the gestational age provided. Continue routine care and follow up unless otherwise noted in visit notes/problem list details Initial Weight: Not Recorded Date -?-?-?-?-?-?-?-?-?-?-?-?- EGA Weight BP Urine Prot -?-?-?-?-?-?-?-?-?-?-?-?- Glucose FHR FuHt Pres Dilation -?-?-?-?-?-?-?-?-?-?-?-?- Effaced St Visit Note 11/25/24 -?-?-?-?-?-?-?-?-?-?-?-?- 9w 4d 159 lb 4 oz 111/76 -?-?-?-?-?-?-?-?-?-?-?-?- 150 -?-?-?-?-?-?-?-?-?-?-?-?- SM- measuring co ns with previous US 12/22/24 -?-?-?-?-?-?-?-?-?-?-?-?- 13w 3d 157 lb 4 oz 102/69 Nega tive -?-?-?-?-?-?-?-?-?-?-?-?- Negative 154 -?-?-?-?-?-?-?-?-?-?-?-?- JV- no complaint s today. needs new ob labs. declines NIPT. 01/18/25 -?-?-?-?-?-?-?-?-?-?-?-?- 17w 2d 160 lb 6 oz 110/60 Nega tive -?-?-?-?-?-?-?-?-?-?-?-?- Negative 158 -?-?-?-?-?-?-?-?-?-?-?-?- MH-No VB. Nausea resolved. NOB labs WNL. No concerns 02/16/25 -?-?-?-?-?-?-?-?-?-?-?-?- 21w 3d 165 lb 4 oz 114/64 Nega tive -?-?-?-?-?-?-?-?-?-?-?-?- Negative 147 -?--?-?-?-?-?-?-?-?-?-?-?- MH-No VB. Good F m. Occa cramping/resolves with rest. 03/13/25 -?-?-?-?-?-?-?-?-?-?-?-?- 25w 0d 171 lb 4 oz 107/71 Nega tive -?-?--?-?-?-?-?-?-?-?-?-?- Negative 150 25 -?-?-?-?-?-?-?-?-?-?-?-?- KW- no vb/lof/ct x. good fm. glucose information given. ACOG First Trimester First Trimester: Desire for , Alcohol, Tobacco Cessation, Illicit/Recreational Drug/Substance Use, Intimate Partner Violence, Barriers to care, Unstable Housing, Communication Barriers, Environmental/Work Hazards, Anticipated Course of Care, Toxoplasmosis Precations, Use of Any medications, Sexual activity, Exercise, Dental Care, Sauna/Hot tub use, Seat Belt use, Childbirth classes/Hospital facilities, Travel, Indications for Ultrasound and Screening for Aneuploidy; Discussed Second Trimester Second Trimester: Signs and Symptoms of Labor, Selecting a care provider, Reproductive Life Planning & Contreception, Care Planning, Depression/Anxiety and Intimate Partner Violence; Discussed Tobacco Cessation Third Trimester Third Trimester: Pain Management Plans, Labor support person(s), Immediate Larc, Circumcision preference, Signs and Symptoms of Preeclampsia, Infant Feeding No and [place] Education ROS Const Reports system reviewed and no additional complaints, except as documented Eyes Reports system reviewed and no additional complaints, except as documented ENT Reports system reviewed and no additional complaints, except as documented Card Reports system reviewed and no additional complaints, except as documented Resp Reports system reviewed and no additional complaints, except as documented GI Reports system reviewed and no additional complaints, except as documented, Denies nausea and Denies vomiting Reports system reviewed and no additional complaints, except as documented Musc Reports system reviewed and no additional complaints, except as documented Skin/Breast Reports system reviewed and no additional complaints, except as documented Neuro Yes system reviewed and no additional complaints, except as documented Psych Reports system reviewed and no additional complaints, except as documented Endo Reports system reviewed and no additional complaints, except as documented Tulio/Lymph Reports system reviewed and no additional complaints, except as documented Aller/Immun Reports system reviewed and no additional complaints, except as documented Exam Const General: cooperative, healthy appearing and no acute distress Orientation: alert, awake and oriented x3 Neck Neck: normal visual inspection and full ROM Resp Effort & Inspection: normal respiratory effort, able to speak in complete sentences and symmetric chest movement GI Inspection: normal to inspection Palpation: soft and other Other: gravid Skin General: no rashes or lesions noted Neuro General: patient alert, patient awake and patient oriented x3 Cognition: normal cognition Speech: speech normal Gait: normal gait Motor: muscle tone normal throughout Extrem General: normal to inspection and full ROM Psych Appearance: grossly normal Mental Status: mental status grossly normal Mood: congruent mood Affect: normal affect Speech and Movement: speech and movement normal Attitude: cooperative Thought Process: normal Thought Content: normal Judgment: judgment good Results POC Urinalysis 2 Dip (Clinic) Office Urine Glucose Negative Last Edit by Regina Jain on 03/13/25 13:28 Office Urine Protein Negative Last Edit by Regina Jain on 03/13/25 13:28 Coding Level of Care Code OB Routine Diagnoses Supervision of high risk in second trimester O09.92 Trimester: second trimester Hx of one miscarriage Z87.59 25 weeks gestation of Z3A.25 Weeks of gestation: 25 weeks 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 on levothyroxine 75 mcg.TSH receptor antibody neg. Orders: Orders POC Urinalysis 2 Dip (Clinic) Today CBC W/Diff, Automated Today O09.92 - Supervision of high risk , unspecified, second trimester, Z3A.25 - 25 weeks gestation of Glucose Challenge Gest 1H 50g Today Z13.1 - Encounter for screening for diabetes mellitus HIV Today Syphilis Antibodies Today O09.92 - Supervision of high risk , unspecified, second trimester, Z3A.25 - 25 weeks gestation of Plan Details Additional Comments: ACOG trimester education reviewed and updated. see problem list details for updated plan management information and see below for orders placed at this visit. GA appropriate handout given. 03/13/25 1340 <Electronically signed by Jacinta mandujano CNM> Date _ Jacinta Rojas CNM Cosigner Signature: Date (if applicable) CC: ~ [facility] Work Phone: Progress note Author Mariana Acosta [facility] Note Date/Time April 05, 2025 10:1 [facility] [address] [place] [address], [address] [place] [address] OFFICE VISIT Date of Service: 04/05/25 MR#: [id number] Acct: [id number] Name: MICHELINE PERALES Rep #: [id number] : 2000 Provider: SANTIAGO Acosta Age/Sex: 24/F Location: [facility] Status: Signed Intake Vital Signs 01/18/25 13:04 03/13/25 13:20 04/05/25 09:58 04/05/25 10:02 Height 5 ft 1 in 5 ft 1 in 5 ft 1 in 5 ft 1 in Weight: 174 lb 4 oz BMI 32.9 BP 104/70 Intake Visit Reasons: 28 wk ob/glucose Chief Complaint: 28 Week OB/Glucose Wagon Driver Required: No Is patient in pain?: No Allergies No Known Allergies Allergy (Verified 04/05/25 10:01) Medications ?Medication ?Instructions ?Recorded ?Confirmed ?Type Lacto-B.anim,bifid-inulin 50 2 cap PO DAILY 11/04/24 0 04/05/25 History billion cell-50 mg capsule,delay release (Fortify Probiotic) levothyroxine 37.5 mcg capsule 37.5 mcg PO QDAY 04/05/25 History magnesium 200 mg tablet 400 mg PO QDAY 11/04/24 07/ History vitamin B complex 1 tab PO QDAY 11/04/2404/05 History ferrous sulfate 27 mg iron tablet 27 mg PO QDAY 04/05/25 History Last Menstrual Period: 04/30/24 Zika: Zika virus screening: Negative : Yes PFSH PFSH Medical History 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 Wears glasses Thyroid disease Headache Shortness of breath on exertion Leg cramps Non-smoker History of irregular heartbeat Vaginal pain Pelvic pain Vaginal delivery Thyroid disorder Hypothyroidism affecting No significant medical problems Acute appendicitis Abdominal pain Surgical History Status post dilatation and curettage History of laparoscopic appendectomy (~02/2019) Family History Brother Cancer, Onset Age: 16 Acute lymphocytic Leukemia Social History adopted: No household members: spouse and children housing: house number of children: 1 current occupational status: unemployed current occupation: [employer] pets and animals: No history of recent travel: No sexually active: Yes Smoking Status: Never smoker second hand exposure: No alcohol intake: never substance use type: does not use diet: other well-balanced diet: daily or most days caffeine: No eating out: rarely or never during the past year weight has: remained stable what type of physical activity do you participate in: none radha/mormonism: None seatbelt use: always do you feel safe at home: Yes additional social history: [employer] History 3 Elective abortions Hx Para 1 Spontaneous abortions 1 Hx # Term Pregnancies Ectopic pregnancies Hx # Pregnancies Multiple births # of living children 1 Past Pregnancies Del. Date Name GA/Weeks Outcome Route Bth Weight Infant Gen Labor Lgth Anesthesia Del Locatn Provider FOB Unknown December 2022 spontaneous 12/17/21 Romario 39 live - full term 7lbs 3oz Male epi dural [facility] Delivery Date: Last Updated by: Eileen Harrington D&C SM Delivery Date: 12/17/21 Last Updated by: Christina Russell SRADITHYA HPI 28 wk ob/glucose Details: MICHELINE PERALES is a 24 year old who presents for routine OB visit. OB Visit ADONIS Calculator 2 Estimated Delivery Date Method Current WG Current Estimate 06/26/25 Ultrasound #1 28w 2d Expected Delivery Route/Plan Labor Preferences- CB/BF classes: no labor support person: Subhash labor intervention preferences: [] pain management options preferred: probable epidural cut cord/dad catch: cord : yes PP control planned: discussed discussed possible routes of delivery and associated risks: [] special requests: [] Specific Issue/Plans Covid status: [] Flu vaccine: [] Tdap vaccine: declines Rhogam: NA LARC form signed: yes Problem list reviewed and updated with the most current plan of care details and appropriate orders placed. Relevant counseling for the gestational age provided. Continue routine care and follow up unless otherwise noted in visit notes/problem list details Initial Weight: Not Recorded Date -?-?-?-?-?-?-?-?-?-?-?-?- EGA Weight BP Urine Prot -?-?-?-?-?-?-?-?-?-?-?-?- Glucose FHR FuHt Pres Dilation -?-?-?-?-?-?-?-?-?-?-?-?- Effaced St Visit Note 11/25/24 -?-?-?-?-?-?-?-?-?-?-?-?- 9w 4d 159 lb 4 oz 111/76 -?-?-?-?-?-?-?-?-?-?-?-?- 150 -?-?-?-?-?-?-?-?-?-?-?-?- SM- measuring co ns with previous US 12/22/24 -?-?-?-?-?-?-?-?-?-?-?-?- 13w 3d 157 lb 4 oz 102/69 Nega tive -?-?-?-?-?-?-?-?-?-?-?-?- Negative 154 -?-?-?-?-?-?-?-?-?-?-?-?- JV- no complaint s today. needs new ob labs. declines NIPT. 01/18/25 -?-?-?-?-?-?-?-?-?-?-?-?- 17w 2d 160 lb 6 oz 110/60 Nega tive -?-?-?-?-?-?-?-?-?-?-?-?- Negative 158 -?-?-?-?-?-?-?-?-?-?-?-?- MH-No VB. Nausea resolved. NOB labs WNL. No concerns 02/16/25 -?-?-?-?-?-?-?-?-?-?-?-?- 21w 3d 165 lb 4 oz 114/64 Nega tive -?-?-?-?-?-?-?-?-?-?-?-?- Negative 147 -?-?-?-?-?-?-?-?-?-?-?-?- MH-No VB. Good F m. Occa cramping/resolves with rest. 03/13/25 -?-?-?-?-?-?-?-?-?-?-?-?- 25w 0d 171 lb 4 oz 107/71 Nega tive -?-?-?-?-?-?-?-?-?-?-?-?- Negative 150 25 -?-?-?-?-?-?-?-?-?-?-?-?- KW- no vb/lof/ct x. good fm. glucose information given. 04/05/25 -?-?-?-?-?-?-?-?-?-?-?-?- 28w 2d 174 lb 4 oz 104/70 Nega tive -?-?-?-?-?-?-?-?-?-?-?-?- Negative 145 28 -?-?-?-?-?-?-?-?-?-?-?-?- MH-No VB, LOF. S ome dizziness, feels was heat related. Good FM. Larc. 28 wk labs pending. Declines tdap ACOG First Trimester First Trimester: Desire for , Alcohol, Tobacco Cessation, Illicit/Recreational Drug/Substance Use, Intimate Partner Violence, Barriers to care, Unstable Housing, Communication Barriers, Environmental/Work Hazards, Anticipated Course of Care, Toxoplasmosis Precations, Use of Any medications, Sexual activity, Exercise, Dental Care, Sauna/Hot tub use, Seat Belt use, Childbirth classes/Hospital facilities, , Travel, Indications for Ultrasound and Screening for Aneuploidy Second Trimester Second Trimester: Signs and Symptoms of Labor, Selecting a care provider, Reproductive Life Planning & Contreception, Care Planning, Depression/Anxiety and Intimate Partner Violence; Discussed Tobacco Cessation Third Trimester Third Trimester: Pain Management Plans, Labor support person(s), Immediate Larc, Circumcision preference, Signs and Symptoms of Preeclampsia, Feeding Yes , [place] Education and Family Medical Leave or Disability Forms ROS Const Reports system reviewed and no additional complaints, except as documented GI Denies abdominal pain, Denies nausea and Denies vomiting Exam Const General: cooperative Nutritional Appearance: well nourished GI Palpation: soft, nontender and other (gravid) Results POC Urinalysis 2 Dip (Clinic) Office Urine Glucose Negative Last Edit by Hui Gandara on 04/05/25 10 :03 Office Urine Protein Negative Last Edit by Hui Gandara on 04/05/25 10 :03 Coding Level of Care Code OB Routine Diagnoses Supervision of high risk in third trimester O09.93 Trimester: third trimester Hx of one miscarriage Z87.59 25 weeks gestation of Z3A.25 Weeks of gestation: 25 weeks 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 E03.8; E06.3 Assessment and Plan Assessment and Plan (1) Supervision of high-risk : Status: Acute Qualifiers: Trimester: third trimester Qualified Code(s): O09.93 - Supervision of high risk , unspecified, third trimester Comment: PRR, , ADONIS 06/26/25, PC Romario, Subhash (2) Hx of one miscarriage: Status: Acute Comment: 2022 (3) : Status: Acute Qualifiers: Weeks of gestation: 25 weeks Qualified Code(s): Z3A.25 - 25 weeks gestation of Comment: declined NIPT & Carrier testing. 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 on levothyroxine 75 mcg.TSH receptor antibody neg. Orders: Orders POC Urinalysis 2 Dip (Clinic) Today Plan problem list reviewed and updated for most current plan of care and appropriate orders placed. Relevant counseling for the gestational age appropriate provided and ACOG education checklist updated. Continue routine care and follow up. 04/05/25 1016 <Electronically signed by Mariana mandujano NP FEED PROJECT ENGINEER-C> Date _ Mariana Acosta FEED PROJECT ENGINEER FEED PROJECT ENGINEER-C Cosigner Signature: Date (if applicable) CC: ~ [facility] Work Phone: Progress note Author Mariana Acosta [facility] Note Date/Time May 18, 2025 10:05am [facility] [address], [address] [place] [address] OFFICE VISIT Date of Service: 05/18/25 MR#: [id number] Acct: [id number] Name: MICHELINE PERALES Rep #: [id number] : 2000 Provider: SANTIAGO Acosta Age/Sex: 25/F Location[place] [facility] Status: Signed Intake Vital Signs 04/20/25 09:21 05/01/25 14:02 05/18/25 09:52 05/18/25 09:56 Height 5 ft 1 in 5 ft 1 in 5 ft 1 in 5 ft 1 in Weight: 185 lb 1 oz BMI 34.9 BP 106/67 Intake Visit Reasons: 34 wk ob Chief Complaint: 34 Week OB Wagon Driver Required: No Is patient in pain?: No Allergies No Known Allergies Allergy (Verified 05/18/25 09:52) Medications ?Medication ?Instructions ?Recorded ?Confirmed ?Type Lacto-B.anim,bifid-inulin 50 2 cap PO DAILY 11/04/24 0 05/18/25 History billion cell-50 mg capsule,delay release (Fortify Probiotic) magnesium 200 mg tablet 400 mg PO QDAY 11/04/2405/08 History vitamin B complex 1 tab PO QDAY 11/04/2405/18 History ferrous sulfate 27 mg iron tablet 27 mg PO QDAY 05/18/25 History levothyroxine 75 mcg capsule 75 mcg PO QDAY #30 caps 0 04/20/25 05/18/25 Rx Last Menstrual Period: 04/30/24 Zika: Zika virus screening: Negative : No PFSH PFSH Medical History 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 Wears glasses Thyroid disease Headache Shortness of breath on exertion Leg cramps Non-smoker History of irregular heartbeat Vaginal pain Pelvic pain Vaginal delivery Thyroid disorder Hypothyroidism affecting No significant medical problems Acute appendicitis Abdominal pain Surgical History Status post dilatation and curettage History of laparoscopic appendectomy (~02/2019) Family History Brother Cancer, Onset Age: 16 Acute lymphocytic Leukemia Social History adopted: No household members: spouse and children housing: house number of children: 1 current occupational status: unemployed current occupation: [employer] pets and animals: No history of recent travel: No sexually active: Yes Smoking Status: Never smoker second hand exposure: No alcohol intake: never substance use type: does not use diet: other well-balanced diet: daily or most days caffeine: No eating out: rarely or never during the past year weight has: remained stable what type of physical activity do you participate in: none radha/mormonism: None seatbelt use: always do you feel safe at home: Yes additional social history: [employer] History 3 Elective abortions Hx Para 1 Spontaneous abortions 1 Hx # Term Pregnancies Ectopic pregnancies Hx # Pregnancies Multiple births # of living children 1 Past Pregnancies Del. Date Name GA/Weeks Outcome Route Bth Weight Infant Gen Labor Lgth Anesthesia Del Locatn Provider FOB Unknown December 2022 spontaneous 12/17/21 Romario 39 live - full term 7lbs 3oz Male epi dural [facility] Subhash Delivery Date: Last Updated by: Eileen Harrington D&C SM Delivery Date: 12/17/21 Last Updated by: Christina Russell SROM HPI 34 wk ob Details: MICHELINE PERALES is a 25 year old who presents for routine OB visit. OB Visit ADONIS Calculator Estimated Delivery Date Method Current WG Current Estimate 06/26/25 Ultrasound #1 34w 3d Expected Delivery Route/Plan Labor Preferences- CB/BF classes: no labor support person: Subhash labor intervention preferences: [] pain management options preferred: probable epidural cut cord/dad catch: cord : yes PP control planned: discussed discussed possible routes of delivery and associated risks: [] special requests: [] Specific Issue/Plans Covid status: [] Flu vaccine: [] Tdap vaccine: declines Rhogam: NA LARC form signed: yes movement and labor precautions reviewed. Problem list reviewed and updated with the most current plan of care details and appropriate orders placed. Relevant counseling for the gestational age provided. Continue routine care and follow up unless otherwise noted in visit notes/problem list details Initial Weight: Not Recorded Date -?-?-?-?-?-?-?-?-?-?-?-?- EGA Weight BP Urine Prot -?-?-?-?-?-?-?-?-?-?-?-?- Glucose FHR FuHt Pres Dilation -?-?-?-?-?-?-?-?-?-?-?-?- Effaced St Visit Note 11/25/24 -?-?-?-?-?-?-?-?-?-?-?-?- 9w 4d 159 lb 4 oz 111/76 -?-?-?-?-?-?-?-?-?-?-?-?- 150 -?-?-?-?-?-?-?-?-?-?-?-?- SM- measuring co ns with previous US 12/22/24 -?-?-?-?-?-?-?-?-?-?-?-?- 13w 3d 157 lb 4 oz 102/69 Nega tive -?-?-?-?-?-?-?-?-?-?-?-?- Negative 154 -?-?-?-?-?-?-?-?-?-?-?-?- JV- no complaint s today. needs new ob labs. declines NIPT. 01/18/25 -?-?-?-?-?-?-?-?-?-?-?-?- 17w 2d 160 lb 6 oz 110/60 Nega tive -?-?-?-?-?-?-?-?-?-?-?-?- Negative 158 -?-?-?-?-?-?-?-?-?-?-?-?- -No VB. Nausea resolved. NOB labs WNL. No concerns 02/16/25 -?-?-?-?-?-?-?-?-?-?-?-?- 21w 3d 165 lb 4 oz 114/64 Nega tive -?-?-?-?-?-?-?-?-?-?-?-?- Negative 147 -?-?-?-?-?-?-?-?-?-?-?-?- -No VB. Good F m. Occa cramping/resolves with rest. 03/13/25 -?-?-?-?-?-?-?-?-?-?-?-?- 25w 0d 171 lb 4 oz 107/71 Nega tive -?-?-?-?-?-?-?-?-?-?-?-?- Negative 150 25 -?-?-?-?-?-?-?-?-?-?-?-?- KW- no vb/lof/ct x. good fm. glucose information given. 04/05/25 -?-?-?-?-?-?-?-?-?-?-?-?- 28w 2d 174 lb 4 oz 104/70 Nega tive -?-?-?-?-?-?-?-?-?-?-?-?- Negative 145 28 -?-?-?-?-?-?-?-?-?-?-?-?- -No VB, LOF. S ome dizziness, feels was heat related. Good FM. Larc. 28 wk labs pending. Declines tdap 04/20/25 -?-?-?-?-?-?--?-?-?-?-?-?- 30w 3d 177 lb 1 oz 100/65 Nega tive -?-?-?-?-?-?-?-?-?-?-?-?- Negative 145 30 -?-?-?-?-?-?-?-?-?-?-?-?- SM- no vb lof go od fm n oreuglar ctx thyroid labs drawn co some odor after intercourse and incresaed discharge- ordered flagyl 05/01/25 -?-?-?-?-?-?-?-?-?-?-?-?- 32w 0d Negative -?-?--?-?-?-?-?-?-?-?-?-?- Negative 160 32 -?-?-?-?-?-?-?-?-?-?-?-?- KW- no vb/lof/ct x. good fm. 05/18/25 -?-?-?-?-?-?-?-?-?-?-?-?- 34w 3d 185 lb 1 oz 106/67 Nega tive -?-?-?-?-?-?-?-?-?-?-?-?- Negative 164 34 -?-?-?-?-?-?-?-?-?-?-?-?- MH-No VB, LOF. G ood FM. No concerns ACOG First Trimester First Trimester: Desire for , Alcohol, Tobacco Cessation, Illicit/Recreational Drug/Substance Use, Intimate Partner Violence, Barriers to care, Unstable Housing, Communication Barriers, Environmental/Work Hazards, Anticipated Course of Care, Toxoplasmosis Precations, Use of Any medications, Sexual activity, Exercise, Dental Care, Sauna/Hot tub use, Seat Belt use, Childbirth classes/Hospital facilities, Travel, Indications for Ultrasound and Screening for Aneuploidy; Discussed Second Trimester Second Trimester: Signs and Symptoms of Labor, Selecting a care provider, Reproductive Life Planning & Contreception, Care Planning, Depression/Anxiety and Intimate Partner Violence; Discussed Tobacco Cessation Third Trimester Third Trimester: Pain Management Plans, Labor support person(s), Immediate Larc, Circumcision preference, Signs and Symptoms of Preeclampsia, Infant Feeding No , Education and Family Medical Leave or Disability Forms ROS Const Reports system reviewed and no additional complaints, except as documented GI Denies abdominal pain, Denies nausea and Denies vomiting Exam Const General: cooperative Nutritional Appearance: well nourished GI Palpation: soft, nontender and other (gravid) Results POC Urinalysis 2 Dip (Clinic) Office Urine Glucose Negative Last Edit by Hui Gandara on 05/18/25 09 :56 Office Urine Protein Negative Last Edit by Hui Gandara on 05/18/25 09 :56 Coding Level of Care Code OB Routine Diagnoses Supervision of high risk in third trimester O09.93 Trimester: third trimester 34 weeks gestation of Z3A.34 Weeks of gestation: 34 weeks Hx of one miscarriage Z87.59 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 on levothyroxine 75 mcg.TSH receptor antibody neg. Orders: Orders POC Urinalysis 2 Dip (Clinic) Today Plan problem list reviewed and updated for most current plan of care and appropriate orders placed. Relevant counseling for the gestational age appropriate provided and ACOG education checklist updated. Continue routine care and follow up. 05/18/25 1005 <Electronically signed by Mariana mandujano FEED PROJECT ENGINEER FEED PROJECT ENGINEER-C> Date _ Mariana Acosta FEED PROJECT ENGINEER FEED PROJECT ENGINEER-C Cosigner Signature: Date (if applicable) CC: ~ [facility] Work Phone: Progress note Author Rocio Persaud [facility] Note Date/Time May 31, 2025 9:39am [facility] [address] [place] [address], [address] [place] [address] OFFICE VISIT Date of Service: 05/31/25 MR#: [id number] Acct: [id number] Name: MICHELINE PERALES Rep #: [id number] : 2000 Provider: Dr. Joshua Persaud MD Age/Sex: 25/F Location: [facility] Status: Signed Intake Vital Signs 04/20/25 09:21 05/18/25 09:56 05/31/25 09:25 05/31/25 09:27 Height 5 ft 1 in 5 ft 1 in 5 ft 1 in 5 ft 1 in Weight: 188 lb 3 oz BMI 35.5 BP 130/77 H Intake Visit Reasons: 36 wk ob Chief Complaint: 36wk OB Wagon Driver Required: No Is patient in pain?: No Allergies No Known Allergies Allergy (Verified 05/31/25 09:23) Medications ?Medication ?Instructions ?Recorded ?Confirmed ?Type Lacto-B.anim,bifid-inulin 50 2 cap PO DAILY 11/04/24 0 05/31/25 History billion cell-50 mg capsule,delay release (Fortify Probiotic) magnesium 200 mg tablet 400 mg PO QDAY 11/04/24 0912/30 History vitamin B complex 1 tab PO QDAY 11/04/2405/31 History ferrous sulfate 27 mg iron tablet 27 mg PO QDAY 05/31/25 History levothyroxine 75 mcg capsule 75 mcg PO QDAY #30 caps 0 04/20/25 05/31/25 Rx Last Menstrual Period: 04/30/24 : No Have you fallen in the past year?: No PFSH PFSH Medical History 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 Wears glasses Thyroid disease Headache Shortness of breath on exertion Leg cramps Non-smoker History of irregular heartbeat Vaginal pain Pelvic pain Vaginal delivery Thyroid disorder Hypothyroidism affecting No significant medical problems Acute appendicitis Abdominal pain Surgical History Status post dilatation and curettage History of laparoscopic appendectomy (~02/2019) Family History Brother Cancer, Onset Age: 16 Acute lymphocytic Leukemia Social History adopted: No household members: spouse and children housing: house number of children: 1 current occupational status: unemployed current occupation: [employer] pets and animals: No history of recent travel: No sexually active: Yes Smoking Status: Never smoker second hand exposure: No alcohol intake: never substance use type: does not use diet: other well-balanced diet: daily or most days caffeine: No eating out: rarely or never during the past year weight has: remained stable what type of physical activity do you participate in: none radha/mormonism: None seatbelt use: always do you feel safe at home: Yes additional social history: [employer] History 3 Elective abortions Hx Para 1 Spontaneous abortions 1 Hx # Term Pregnancies Ectopic pregnancies Hx # Pregnancies Multiple births # of living children 1 Past Pregnancies Del. Date Name GA/Weeks Outcome Route Bth Weight Gen Labor Lgth Anesthesia Del Locatn Provider FOB Unknown December 2022 spontaneous 12/17/21 Romario 39 live - full term 7lbs 3oz Male epi dural [facility] Delivery Date: Last Updated by: Eileen Harrington D&Abebe SM Delivery Date: 12/17/21 Last Updated by: Christina KING HPI 36 wk ob Details: MICHELINE PERALES is a 25 year old who presents for routine OB visit. OB Visit ADONIS Calculator Estimated Delivery Date Method Current WG Current Estimate 06/26/25 Ultrasound #1 36w 2d Expected Delivery Route/Plan Labor Preferences- CB/BF classes: no labor support person: Subhash labor intervention preferences: [] pain management options preferred: probable epidural cut cord/dad catch: cord : yes PP control planned: discussed discussed possible routes of delivery and associated risks: [] special requests: [] Specific Issue/Plans Covid status: [] Flu vaccine: [] Tdap vaccine: declines Rhogam: NA LARC form signed: yes movement and labor precautions reviewed. Problem list reviewed and updated with the most current plan of care details and appropriate orders placed. Relevant counseling for the gestational age provided. Continue routine care and follow up unless otherwise noted in visit notes/problem list details Initial Weight: Not Recorded Date -?-?-?-?-?-?-?-?-?-?-?-?- EGA Weight BP Urine Prot -?-?-?-?-?-?-?-?-?-?-?-?- Glucose FHR FuHt Pres Dilation -?-?-?-?-?-?-?-?-?-?-?-?- Effaced St Visit Note 11/25/24 -?-?-?-?-?-?-?-?-?-?-?-?- 9w 4d 159 lb 4 oz 111/76 -?-?-?-?-?-?-?-?-?-?-?-?- 150 -?-?-?-?-?-?-?-?-?-?-?-?- SM- measuring co ns with previous US 12/22/24 -?-?-?-?--?-?-?-?-?-?-?-?- 13w 3d 157 lb 4 oz 102/69 Nega tive -?-?-?-?-?-?-?-?-?-?-?-?- Negative 154 -?-?-?-?-?-?-?-?-?-?-?-?- JV- no complaint s today. needs new ob labs. declines NIPT. 01/18/25 -?-?-?-?-?-?-?-?-?-?-?-?- 17w 2d 160 lb 6 oz 110/60 Nega tive -?-?-?-?-?-?-?-?-?-?-?-?- Negative 158 -?-?-?-?-?-?-?-?-?-?-?-?- MH-No VB. Nausea resolved. NOB labs WNL. No concerns 02/16/25 -?-?-?-?-?-?-?-?-?-?-?-?- 21w 3d 165 lb 4 oz 114/64 Nega tive -?-?-?-?-?-?-?-?-?-?-?-?- Negative 147 -?-?-?-?-?-?-?-?-?-?-?-?- MH-No VB. Good F m. Occa cramping/resolves with rest. 03/13/25 -?-?-?-?-?-?--?-?-?-?-?-?- 25w 0d 171 lb 4 oz 107/71 Nega tive -?-?-?-?-?-?-?-?-?-?-?-?- Negative 150 25 -?-?-?-?-?-?-?-?-?-?-?-?- KW- no vb/lof/ct x. good fm. glucose information given. 04/05/25 -?-?-?-?-?-?-?-?-?-?-?-?- 28w 2d 174 lb 4 oz 104/70 Nega tive -?-?-?-?-?-?-?-?-?-?-?-?- Negative 145 28 -?-?-?-?-?-?-?-?-?-?-?-?- -No VB, LOF. S ome dizziness, feels was heat related. Good FM. Larc. 28 wk labs pending. Declines tdap 04/20/25 -?-?-?-?-?-?-?-?-?-?-?-?- 30w 3d 177 lb 1 oz 100/65 Nega tive -?-?-?-?-?-?-?-?-?-?-?-?- Negative 145 30 -?-?-?-?-?-?-?-?-?-?-?-?- SM- no vb lof go od fm n oreuglar ctx thyroid labs drawn co some odor after intercourse and incresaed discharge- ordered flagyl 05/01/25 -?-?-?-?-?-?-?-?-?-?-?-?- 32w 0d Negative -?-?-?-?-?-?-?-?-?-?-?-?- Negative 160 32 -?-?-?-?-?-?-?-?-?-?-?-?- KW- no vb/lof/ct x. good fm. 05/18/25 -?-?-?-?-?-?-?-?-?-?-?-?- 34w 3d 185 lb 1 oz 106/67 Nega tive -?-?-?-?-?-?-?-?-?-?-?-?- Negative 164 34 -?-?-?-?-?-?-?-?-?-?-?-?- MH-No VB, LOF. G ood FM. No concerns 05/31/25 -?-?-?-?-?-?-?-?--?-?-?-?- 36w 2d 188 lb 3 oz 130/77 Nega tive -?-?-?-?-?-?-?-?-?-?-?-?- Negative 145 37 Cephalic 1 -?-?-?-?-?-?-?-?-?-?-?-?- -3 SM- no v b lof good fm no reuglar ctx gbs done ACOG First Trimester First Trimester: Desire for , Alcohol, Tobacco Cessation, Illicit/Recreational Drug/Substance Use, Intimate Partner Violence, Barriers to care, Unstable Housing, Communication Barriers, Environmental/Work Hazards, Anticipated Course of Care, Toxoplasmosis Precations, Use of Any medications, Sexual activity, Exercise, Dental Care, Sauna/Hot tub use, Seat Belt use, Childbirth classes/Hospital facilities, Travel, Indications for Ultrasound and Screening for Aneuploidy; Discussed Second Trimester Second Trimester: Signs and Symptoms of Labor, Selecting a care provider, Reproductive Life Planning & Contreception, Care Planning, Depression/Anxiety and Intimate Partner Violence; Discussed Tobacco Cessation Third Trimester Third Trimester: Pain Management Plans, Labor support person(s), Immediate Larc, Circumcision preference, Signs and Symptoms of Preeclampsia, Infant Feeding No , [place] Education and Family Medical Leave or Disability Forms Results POC Urinalysis 2 Dip (Clinic) Office Urine Glucose Negative Last Edit by Regina Jain on 05/31/25 09:33 Office Urine Protein Negative Last Edit by Regina Jain on 05/31/25 09:33 Coding Level of Care Code OB Routine Diagnoses Supervision of high risk in third trimester O09.93 Trimester: third trimester Hx of one miscarriage Z87.59 36 weeks gestation of Z3A.36 Weeks of gestation: 36 weeks 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 on levothyroxine 75 mcg.TSH receptor antibody neg. Orders: Orders POC Urinalysis 2 Dip (Clinic) Today Culture, Group B Streptococcus Today O09.93 - Supervision of high risk , unspecified, third trimester, Z3A.36 - 36 weeks gestation of Clinical Quality Measures Falls Risk Screening/Assistive Devices Have you fallen in the past year?: No 05/31/25 0939 <Electronically signed by Rocio comer MD> Date _ Rocio Persaud MD Cosigner Signature: Date (if applicable) CC: ~ [facility] Work Phone: Progress note Author Rocio Persaud [facility] Note Date/Time June 05, 2025 9:18am [facility] [address], [address] [place] [id number] OFFICE VISIT Date of Service: 06/05/25 MR#: [id number] Acct: [id number] Name: MICHELINE PERALES Rep #: [id number] : 2000 Provider: Dr. Joshua Persaud MD Age/Sex: 25/F Location: [facility] Status: Signed Intake Vital Signs 05/18/25 09:56 05/31/25 09:27 06/05/25 08:45 06/05/25 08:46 Height 5 ft 1 in 5 ft 1 in 5 ft 1 in 5 ft 1 in Weight: 189 lb BMI 35.6 BP 106/73 Intake Visit Reasons: 37 WK OB Wagon Driver Required: No Is patient in pain?: No Allergies No Known Allergies Allergy (Verified 06/05/25 08:45) Medications ?Medication ?Instructions ?Recorded ?Confirmed ?Type Lacto-B.anim,bifid-inulin 50 2 cap PO DAILY 11/04/24 0 06/05/25 History billion cell-50 mg capsule,delay release (Fortify Probiotic) magnesium 200 mg tablet 400 mg PO QDAY 11/04/2405/09 History vitamin B complex 1 tab PO QDAY 11/04/2406/05 History ferrous sulfate 27 mg iron tablet 27 mg PO QDAY 06/05/25 History levothyroxine 75 mcg capsule 75 mcg PO QDAY #30 caps 0 04/20/25 06/05/25 Rx Last Menstrual Period: 04/30/24 Zika: Zika virus screening: Negative : No Have you fallen in the past year?: No PFSH PFSH Medical History 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 Wears glasses Thyroid disease Headache Shortness of breath on exertion Leg cramps Non-smoker History of irregular heartbeat Vaginal pain Pelvic pain Vaginal delivery Thyroid disorder Hypothyroidism affecting No significant medical problems Acute appendicitis Abdominal pain Surgical History Status post dilatation and curettage History of laparoscopic appendectomy (~02/2019) Family History Brother Cancer, Onset Age: 16 Acute lymphocytic Leukemia Social History adopted: No household members: spouse and children housing: house number of children: 1 current occupational status: unemployed current occupation: [employer] pets and animals: No history of recent travel: No sexually active: Yes Smoking Status: Never smoker second hand exposure: No alcohol intake: never substance use type: does not use diet: other well-balanced diet: daily or most days caffeine: No eating out: rarely or never during the past year weight has: remained stable what type of physical activity do you participate in: none radha/mormonism: None seatbelt use: always do you feel safe at home: Yes additional social history: [employer] History 3 Elective abortions Hx Para 1 Spontaneous abortions 1 Hx # Term Pregnancies Ectopic pregnancies Hx # Pregnancies Multiple births # of living children 1 Past Pregnancies Del. Date Name GA/Weeks Outcome Route Bth Weight Infant Gen Labor Lgth Anesthesia Del Locatn Provider FOB Unknown December 2022 spontaneous 12/17/21 Romario 39 live - full term 7lbs 3oz Male epi dural [facility] Delivery Date: Last Updated by: Eileen Harrington D&Abebe SM Delivery Date: 12/17/21 Last Updated by: Christina KING HPI 37 WK OB Details: MICHELINE PERALES is a 25 year old who presents for routine OB visit. OB Visit ADONIS Calculator Estimated Delivery Date Method Current WG Current Estimate 06/26/25 Ultrasound #1 37w 0d Expected Delivery Route/Plan Labor Preferences- CB/BF classes: no labor support person: Subhash labor intervention preferences: [] pain management options preferred: probable epidural cut cord/dad catch: cord : yes PP control planned: discussed discussed possible routes of delivery and associated risks: [] special requests: [] Specific Issue/Plans Covid status: [] Flu vaccine: [] Tdap vaccine: declines Rhogam: NA LARC form signed: yes movement and labor precautions reviewed. Problem list reviewed and updated with the most current plan of care details and appropriate orders placed. Relevant counseling for the gestational age provided. Continue routine care and follow up unless otherwise noted in visit notes/problem list details Initial Weight: Not Recorded Date -?-?-?-?-?-?-?-?-?-?-?-?- EGA Weight BP Urine Prot -?-?-?-?-?-?-?-?-?-?-?-?- Glucose FHR FuHt Pres Dilation -?-?-?-?-?-?-?-?-?-?-?-?- Effaced St Visit Note 11/25/24 -?-?-?-?-?-?-?-?-?-?-?-?- 9w 4d 159 lb 4 oz 111/76 -?-?-?-?-?-?-?-?-?-?-?-?- 150 -?-?-?-?-?-?-?-?-?-?-?-?- SM- measuring co ns with previous US 12/22/24 -?-?-?-?-?-?-?-?-?-?-?-?- 13w 3d 157 lb 4 oz 102/69 Nega tive -?-?-?-?-?-?-?-?-?-?-?-?- Negative 154 -?-?-?-?-?-?-?-?-?-?-?-?- JV- no complaint s today. needs new ob labs. declines NIPT. 01/18/25 -?-?-?-?-?-?-?-?-?-?-?-?- 17w 2d 160 lb 6 oz 110/60 Nega tive -?-?-?-?-?-?-?-?-?-?-?-?- Negative 158 -?-?-?-?-?-?-?-?-?-?-?-?- MH-No VB. Nausea resolved. NOB labs WNL. No concerns 02/16/25 -?-?-?-?-?-?-?-?-?-?-?-?- 21w 3d 165 lb 4 oz 114/64 Nega tive -?-?-?-?-?-?-?-?-?-?-?-?- Negative 147 -?-?-?-?-?-?-?-?-?-?-?-?- MH-No VB. Good F m. Occa cramping/resolves with rest. 03/13/25 -?-?-?-?-?-?-?-?-?-?-?-?- 25w 0d 171 lb 4 oz 107/71 Nega tive -?-?-?-?-?-?-?-?-?-?-?-?- Negative 150 25 -?-?-?-?-?-?-?-?-?-?-?-?- KW- no vb/lof/ct x. good fm. glucose information given. 04/05/25 -?-?-?-?-?-?-?-?-?-?-?-?- 28w 2d 174 lb 4 oz 104/70 Nega tive -?-?-?-?-?-?-?-?-?-?-?-?- Negative 145 28 -?-?-?-?-?-?-?-?-?-?-?-?- MH-No VB, LOF. S ome dizziness, feels was heat related. Good FM. Larc. 28 wk labs pending. Declines tdap 04/20/25 -?-?-?-?-?-?-?-?-?-?--?-?- 30w 3d 177 lb 1 oz 100/65 Nega tive -?-?-?-?-?-?-?-?-?-?-?-?- Negative 145 30 -?-?-?-?-?-?-?-?-?-?-?-?- SM- no vb lof go od fm n oreuglar ctx thyroid labs drawn co some odor after intercourse and incresaed discharge- ordered flagyl 05/01/25 -?-?-?-?-?-?-?-?-?-?-?-?- 32w 0d Negative -?-?-?-?-?-?--?-?-?-?-?-?- Negative 160 32 -?-?-?-?-?-?-?-?-?-?-?-?- KW- no vb/lof/ct x. good fm. 05/18/25 -?-?-?-?-?-?-?-?-?-?-?-?- 34w 3d 185 lb 1 oz 106/67 Nega tive -?-?-?-?-?-?-?-?-?-?-?-?- Negative 164 34 -?-?-?-?-?-?-?-?-?-?-?-?- MH-No VB, LOF. G ood FM. No concerns 05/31/25 -?-?-?-?-?-?-?-?-?-?-?-?- 36w 2d 188 lb 3 oz 130/77 Nega tive -?-?-?-?-?-?-?-?-?-?-?-?- Negative 145 37 Cephalic 1 -?-?-?-?-?-?-?-?-?-?-?-?- -3 SM- no v b lof good fm no reuglar ctx gbs done 06/05/25 -?-?-?-?-?-?-?-?-?-?-?-?- 37w 0d 189 lb 106/73 -?-?-?-?-?-?-?-?-?-?-?-?- 130 37 Cephalic -?-?-?-?-?-?-?-?-?-?-?-?- SM- no vb lof go od fm no regualr ctx ACOG First Trimester First Trimester: Desire for , Alcohol, Tobacco Cessation, Illicit/Recreational Drug/Substance Use, Intimate Partner Violence, Barriers to care, Unstable Housing, Communication Barriers, Environmental/Work Hazards, Anticipated Course of Care, Toxoplasmosis Precations, Use of Any medications, Sexual activity, Exercise, Dental Care, Sauna/Hot tub use, Seat Belt use, Childbirth classes/Hospital facilities, Travel, Indications for Ultrasound and Screening for Aneuploidy; Discussed Second Trimester Second Trimester: Signs and Symptoms of Labor, Selecting a care provider, Reproductive Life Planning & Contreception, Care Planning, Depression/Anxiety and Intimate Partner Violence; Discussed Tobacco Cessation Third Trimester Third Trimester: Pain Management Plans, Labor support person(s), Immediate Larc, Circumcision preference, Signs and Symptoms of Preeclampsia, Infant Feeding No , [place] Education and Family Medical Leave or Disability Forms Coding Level of Care Code OB Routine Diagnoses Supervision of high risk in third trimester O09.93 Trimester: third trimester Hx of one miscarriage Z87.59 37 weeks gestation of Z3A.37 Weeks of gestation: 37 weeks 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 on levothyroxine 75 mcg.TSH receptor antibody neg. Orders: Orders POC Urinalysis 2 Dip (Clinic) Today Clinical Quality Measures Falls Risk Screening/Assistive Devices Have you fallen in the past year?: No 06/05/25 0919 <Electronically signed by Rocio comer MD> Date _ Rocio Persaud MD Cosigner Signature: Date (if applicable) CC: ~ [facility] Services Work Phone: Reason for referral (narrative)No reason for referral information available[facility] Work Phone: Chief Complaint and Reason for Visit Chief Complaint 21WK OB ANATOMY SCAN 25WK OB 29WK OB / GLUCOSE 31WK OB 33WK OB 35WK OB 37WK OB Reason for Visit Hypothyroidism affec ting Supervision of normal Thyroiditis Thyromegaly Hypothyroidism affecting Supervision of normal Thyromegaly Hypothyroidism affecting Supervision of normal Hypothyroidism affecting Supervision of normal Refuses tetanus, diphtheria, and acellular pertussis (Tdap) vaccination Hypothyroidism affecting Supervision of normal Hypothyroidism affecting Supervision of normal Hypothyroidism affecting Supervision of normal Chief Complaint 25WK OB 29WK OB / GLUCOSE 31WK OB 33WK OB 35WK OB 37WK OB 38WK OB 39WK OB RULE OUT LABOR VAG VAG Reason for Visit Hypothyroidism affec ting Supervision of normal Thyromegaly Hypothyroidism affecting Supervision of normal Hypothyroidism affecting Refuses tetanus, diphtheria, and acellular pertussis (Tdap) vaccination Supervision of normal Hypothyroidism affecting Supervision of normal Hypothyroidism affecting Supervision of normal Hypothyroidism affecting Supervision of normal Hypothyroidism affecting Supervision of normal Hypothyroidism affecting Supervision of normal Hypothyroidism affecting Supervision of normal Chief Complaint 35WK OB 37WK OB 38WK OB 39WK OB RULE OUT LABOR VAG VAG 6wkk pp PELVIC PAIN Reason for Visit Hypothyroidism affec ting Supervision of normal Hypothyroidism affecting Supervision of normal Hypothyroidism affecting Supervision of normal Hypothyroidism affecting Supervision of normal Vaginal delivery Hypothyroidism affecting Supervision of normal Vaginal delivery Chief Complaint 38WK OB 39WK OB RULE OUT LABOR VAG VAG 6wkk pp PELVIC PAIN pain during intercourse E ORDER Reason for Visit Hypothyroidism affec ting Supervision of normal Hypothyroidism affecting Supervision of normal Vaginal delivery Hypothyroidism affecting Supervision of normal Vaginal delivery Vaginal pain Chief Complaint NOB LMP / SUCTION D&C SUCTION D&C 2 wk D&C miscarriage eorders/need order Reason for Visit Missed Obesity affecting Supervision of high risk , antepartum Thyroid disorder Status post dilatation and curettage Missed Postoperative examination Chief Complaint NOB LMP 1/12 SUCTION D&C SUCTION D&C 2 wk D&C miscarriage eorders/need order ABNORMAL FINDINGS BLOOD CHEMISTRY Reason for Visit Missed Obesity affecting Supervision of high risk , antepartum Thyroid disorder Status post dilatation and curettage Missed Postoperative examination Chief Complaint fertility consult Reason for Visit Hypothyroidism due t o Queenie's thyroiditis Infertility associated with anovulation Chief Complaint Admit Date DATING November 02, 2024 4:58pm Chief Complaint Admit Date DATING November 02, 2024 4:58pm New OB, unsure LMP, hx m/c November 25, 2 025 1:38pm Reason for Visit Admit Date Early stage of November 25 1:38pm Hx of one miscarriage November 25, 2024 1 :38pm 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 November 25, 2024 1:38pm November 25, 2024 1:3 8pm Supervision of high-risk November 25, 2024 1:38pm Chief Complaint Admit Date DATING November 02, 2024 4:58pm New OB, unsure LMP, hx m/c November 25, 2 025 1:38pm 13 wk OB December 22, 2024 10: 00am Reason for Visit Admit Date Early stage of November 25 1:38pm Hx of one miscarriage November 25, 2024 1 :38pm 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 November 25, 2024 1:38pm November 25, 2024 1:3 8pm Supervision of high-risk November 25, 2024 1:38pm Early stage of December 22 10:00am Hx of one miscarriage December 22, 2024 1 0:00am 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 December 22, 2024 10:00am Infertility associated with anovulation December 22, 2024 10:00am December 22, 2024 10: 00am Supervision of high-risk December 22, 2024 10:00am Chief Complaint Admit Date DATING November 02, 2024 4:58pm New OB, unsure LMP, hx m/c November 25, 2 025 1:38pm 13 wk OB December 22, 2024 10: 00am 17 wk ob January 18, 2025 12:45 pm Reason for Visit Admit Date Hx of one miscarriage November 25, 2024 1 :38pm 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 November 25, 2024 1:38pm November 25, 2024 1:3 8pm Supervision of high-risk November 25, 2024 1:38pm Early stage of November 25 1:38pm Hx of one miscarriage December 22, 2024 1 0:00am 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 December 22, 2024 10:00am December 22, 2024 10: 00am Supervision of high-risk December 22, 2024 10:00am Infertility associated with anovulation December 22, 2024 10:00am Early stage of December 22 10:00am Hx of one miscarriage January 18, 2025 12: 45pm 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 January 18, 2025 12:45pm January 18, 2025 12:45 pm Supervision of high-risk January [id number] 12:45pm Chief Complaint Admit Date DATING November 02, 2024 4:58pm New OB, unsure LMP, hx m/c November 25, 2 025 1:38pm 13 wk OB December 22, 2024 10: 00am 17 wk ob January 18, 2025 12:45 pm 21 wk ob February 16, 2025 9:35 am Reason for Visit Admit Date Hx of one miscarriage November 25, 2024 1 :38pm 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 November 25, 2024 1:38pm November 25, 2024 1:3 8pm Supervision of high-risk November 25, 2024 1:38pm Early stage of November 25 1:38pm Hx of one miscarriage December 22, 2024 1 0:00am 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 December 22, 2024 10:00am December 22, 2024 10: 00am Supervision of high-risk December 22, 2024 10:00am Infertility associated with anovulation December 22, 2024 10:00am Early stage of December 22 10:00am Hx of one miscarriage January 18, 2025 12: 45pm 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 January 18, 2025 12:45pm January 18, 2025 12:45 pm Supervision of high-risk January 052024 12:45pm Hx of one miscarriage February 16, 2025 9: 35am 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 February 16, 2025 9:35am February 16, 2025 9:35 am Supervision of high-risk February 16, 2025 9:35am Chief Complaint Admit Date New OB, unsure LMP, hx m/c November 25, 2 025 1:38pm 13 wk OB December 22, 2024 10: 00am 17 wk ob January 18, 2025 12:45 pm 21 wk ob February 16, 2025 9:35 am 25 wk ob March 13, 2025 1:15p m Reason for Visit Admit Date Hx of one miscarriage November 25, 2024 1 :38pm 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 November 25, 2024 1:38pm November 25, 2024 1:3 8pm Supervision of high-risk November 25, 2024 1:38pm Early stage of November 25 1:38pm Hx of one miscarriage December 22, 2024 1 0:00am 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 December 22, 2024 10:00am December 22, 2024 10: 00am Supervision of high-risk December 22, 2024 10:00am Infertility associated with anovulation December 22, 2024 10:00am Early stage of December 22 10:00am Hx of one miscarriage January 18, 2025 12: 45pm 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 January 18, 2025 12:45pm January 18, 2025 12:45 pm Supervision of high-risk January 052024 12:45pm Hx of one miscarriage February 16, 2025 9: 35am 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 February 16, 2025 9:35am February 16, 2025 9:35 am Supervision of high-risk February 16, 2025 9:35am Hx of one miscarriage March 13, 2025 1:1 5pm 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 March 13, 2025 1:15pm March 13, 2025 1:15p m Supervision of high-risk March 13, 2025 1:15pm Chief Complaint Admit Date 13 wk OB December 22, 2024 10: 00am 17 wk ob January 18, 2025 12:45 pm 21 wk ob February 16, 2025 9:35 am 25 wk ob March 13, 2025 1:15p m 28 wk ob/glucose April 05, 2025 9:36 am Reason for Visit Admit Date Hx of one miscarriage December 22, 2024 1 0:00am 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 December 22, 2024 10:00am December 22, 2024 10: 00am Supervision of high-risk December 22, 2024 10:00am Infertility associated with anovulation December 22, 2024 10:00am Early stage of December 22 10:00am Hx of one miscarriage January 18, 2025 12: 45pm 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 January 18, 2025 12:45pm January 18, 2025 12:45 pm Supervision of high-risk January 052024 12:45pm Hx of one miscarriage February 16, 2025 9: 35am 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 February 16, 2025 9:35am February 16, 2025 9:35 am Supervision of high-risk February 16, 2025 9:35am Hx of one miscarriage March 13, 2025 1:1 5pm 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 March 13, 2025 1:15pm March 13, 2025 1:15p m Supervision of high-risk March 13, 2025 1:15pm Hx of one miscarriage April 05, 2025 9: 36am 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 April 05, 2025 9:36am April 05, 2025 9:36 am Supervision of high-risk April 05, 2025 9:36am Chief Complaint Admit Date 13 wk OB December 22, 2024 10: 00am 17 wk ob January 18, 2025 12:45 pm 21 wk ob February 16, 2025 9:35 am 25 wk ob March 13, 2025 1:15p m 28 wk ob/glucose April 05, 2025 9:36 am 30 wk ob April 20, 2025 9: 14am Reason for Visit Admit Date Hx of one miscarriage December 22, 2024 1 0:00am 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 December 22, 2024 10:00am December 22, 2024 10: 00am Supervision of high-risk December 22, 2024 10:00am Infertility associated with anovulation December 22, 2024 10:00am Early stage of December 22 10:00am Hx of one miscarriage January 18, 2025 12: 45pm 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 January 18, 2025 12:45pm January 18, 2025 12:45 pm Supervision of high-risk January 052024 12:45pm Hx of one miscarriage February 16, 2025 9: 35am 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 February 16, 2025 9:35am February 16, 2025 9:35 am Supervision of high-risk February 16, 2025 9:35am Hx of one miscarriage March 13, 2025 1:1 5pm 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 March 13, 2025 1:15pm March 13, 2025 1:15p m Supervision of high-risk March 13, 2025 1:15pm Hx of one miscarriage April 05, 2025 9: 36am 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 April 05, 2025 9:36am April 05, 2025 9:36 am Supervision of high-risk April 05, 2025 9:36am Hx of one miscarriage April 20, 2025 9:14am 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 April 20, 2025 9:14am April 20, 2025 9: 14am Supervision of high-risk Augus 2024 9:14am Chief Complaint Admit Date 17 wk ob January 18, 2025 12:45 pm 21 wk ob February 16, 2025 9:35 am 25 wk ob March 13, 2025 1:15p m 28 wk ob/glucose April 05, 2025 9:36 am 30 wk ob April 20, 2025 9: 14am Reason for Visit Admit Date Hx of one miscarriage January 18, 2025 12: 45pm 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 January 18, 2025 12:45pm January 18, 2025 12:45 pm Supervision of high-risk January 052024 12:45pm Hx of one miscarriage February 16, 2025 9: 35am 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 February 16, 2025 9:35am February 16, 2025 9:35 am Supervision of high-risk February 16, 2025 9:35am Hx of one miscarriage March 13, 2025 1:1 5pm 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 March 13, 2025 1:15pm March 13, 2025 1:15p m Supervision of high-risk March 13, 2025 1:15pm Hx of one miscarriage April 05, 2025 9: 36am 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 April 05, 2025 9:36am April 05, 2025 9:36 am Supervision of high-risk April 05, 2025 9:36am Hx of one miscarriage April 20, 2025 9:14am 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 April 20, 2025 9:14am April 20, 2025 9: 14am Supervision of high-risk Augus t 2024 9:14am Chief Complaint Admit Date 17 wk ob January 18, 2025 12:45 pm 21 wk ob February 16, 2025 9:35 am 25 wk ob March 13, 2025 1:15p m 28 wk ob/glucose April 05, 2025 9:36 am 30 wk ob April 20, 2025 9: 14am 32wk OB May 01, 2025 1: 59pm Reason for Visit Admit Date Hx of one miscarriage January 18, 2025 12: 45pm 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 January 18, 2025 12:45pm January 18, 2025 12:45 pm Supervision of high-risk January 052024 12:45pm Hx of one miscarriage February 16, 2025 9: 35am 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 February 16, 2025 9:35am February 16, 2025 9:35 am Supervision of high-risk February 16, 2025 9:35am Hx of one miscarriage March 13, 2025 1:1 5pm 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 March 13, 2025 1:15pm March 13, 2025 1:15p m Supervision of high-risk March 13, 2025 1:15pm Hx of one miscarriage April 05, 2025 9: 36am 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 April 05, 2025 9:36am April 05, 2025 9:36 am Supervision of high-risk April 05, 2025 9:36am Hx of one miscarriage April 20, 2025 9:14am 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 April 20, 2025 9:14am April 20, 2025 9: 14am Supervision of high-risk Augus t 2024 9:14am Hx of one miscarriage May 01, 2025 1:59pm 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 May 01, 2025 1:59pm May 01, 2025 1: 59pm Supervision of high-risk Augus t 2024 1:59pm Chief Complaint Admit Date 17 wk ob January 18, 2025 12:45 pm 21 wk ob February 16, 2025 9:35 am 25 wk ob March 13, 2025 1:15p m 28 wk ob/glucose April 05, 2025 9:36 am 30 wk ob April 20, 2025 9: 14am 32wk OB May 01, 2025 1: 59pm 34 wk ob May 18, 2025 9:46am Reason for Visit Admit Date Hx of one miscarriage January 18, 2025 12: 45pm 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 January 18, 2025 12:45pm January 18, 2025 12:45 pm Supervision of high-risk January 052024 12:45pm Hx of one miscarriage February 16, 2025 9: 35am 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 February 16, 2025 9:35am February 16, 2025 9:35 am Supervision of high-risk February 16, 2025 9:35am Hx of one miscarriage March 13, 2025 1:1 5pm 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 March 13, 2025 1:15pm March 13, 2025 1:15p m Supervision of high-risk March 13, 2025 1:15pm Hx of one miscarriage April 05, 2025 9: 36am 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 April 05, 2025 9:36am April 05, 2025 9:36 am Supervision of high-risk April 05, 2025 9:36am Hx of one miscarriage April 20, 2025 9:14am 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 April 20, 2025 9:14am April 20, 2025 9: 14am Supervision of high-risk Augus 2024 9:14am Hx of one miscarriage May 01, 2025 1:59pm 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 May 01, 2025 1:59pm May 01, 2025 1: 59pm Supervision of high-risk Aprus 2024 1:59pm Hx of one miscarriage May 18 9:46am 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 May 18, 2025 9:46am May 18, 2025 9:46am Supervision of high-risk Septe [id number] 9:46am Chief Complaint Admit Date 21 wk ob February 16, 2025 9:35 am 25 wk ob March 13, 2025 1:15p m 28 wk ob/glucose April 05, 2025 9:36 am 30 wk ob April 20, 2025 9: 14am 32wk OB May 01, 2025 1: 59pm 34 wk ob May 18, 2025 9:46am 36 wk ob May 31, 2025 9:22am 37 WK OB June 05, 2025 8:43am Reason for Visit Admit Date Hx of one miscarriage February 16, 2025 9: 35am 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 February 16, 2025 9:35am February 16, 2025 9:35 am Supervision of high-risk February 16, 2025 9:35am Hx of one miscarriage March 13, 2025 1:1 5pm 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 March 13, 2025 1:15pm March 13, 2025 1:15p m Supervision of high-risk March 13, 2025 1:15pm Hx of one miscarriage April 05, 2025 9: 36am 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 April 05, 2025 9:36am April 05, 2025 9:36 am Supervision of high-risk April 05, 2025 9:36am Hx of one miscarriage April 20, 2025 9:14am 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 April 20, 2025 9:14am April 20, 2025 9: 14am Supervision of high-risk Augus 2024 9:14am Hx of one miscarriage May 01, 2025 1:59pm 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 May 01, 2025 1:59pm May 01, 2025 1: 59pm Supervision of high-risk Augus 2024 1:59pm Hx of one miscarriage May 18 9:46am 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 May 18, 2025 9:46am May 18, 2025 9:46am Supervision of high-risk [facility] 2024 9:46am Hx of one miscarriage May 31 9:22am 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 May 31, 2025 9:22am May 31, 2025 9:22am Supervision of high-risk [facility] 2024 9:22am Hx of one miscarriage June 05 8:43am 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 June 05, 2025 8:43am June 05, 2025 8:43am Supervision of high-risk [facility] 2024 8:43am Chief Complaint Admit Date 21 wk ob February 16, 2025 9:35 am 25 wk ob March 13, 2025 1:15p m 28 wk ob/glucose April 05, 2025 9:36 am 30 wk ob April 20, 2025 9: 14am 32wk OB May 01, 2025 1: 59pm 34 wk ob May 18, 2025 9:46am 36 wk ob May 31, 2025 9:22am 37 WK OB June 05, 2025 8:43am 38 WK OB June 14, 2025 11 :37am Reason for Visit Admit Date Hx of one miscarriage February 16, 2025 9: 35am 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 February 16, 2025 9:35am February 16, 2025 9:35 am Supervision of high-risk February 16, 2025 9:35am Hx of one miscarriage March 13, 2025 1:1 5pm 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 March 13, 2025 1:15pm March 13, 2025 1:15p m Supervision of high-risk March 13, 2025 1:15pm Hx of one miscarriage April 05, 2025 9: 36am 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 April 05, 2025 9:36am April 05, 2025 9:36 am Supervision of high-risk April 05, 2025 9:36am Hx of one miscarriage April 20, 2025 9:14am 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 April 20, 2025 9:14am April 20, 2025 9: 14am Supervision of high-risk Augus t 2024 9:14am Hx of one miscarriage May 01, 2025 1:59pm 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 May 01, 2025 1:59pm May 01, 2025 1: 59pm Supervision of high-risk Augus t 2024 1:59pm Hx of one miscarriage May 18 9:46am 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 May 18, 2025 9:46am May 18, 2025 9:46am Supervision of high-risk [facility] 2024 9:46am Hx of one miscarriage May 31 9:22am 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 May 31, 2025 9:22am May 31, 2025 9:22am Supervision of high-risk [facility] 24th, 2025 9:22am Hx of one miscarriage June 05 8:43am 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 June 05, 2025 8:43am June 05, 2025 8:43am Supervision of high-risk Septe mber 2024 8:43am Hx of one miscarriage June 14, 2025 11:37am 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 June 14, 2025 11:37am June 14, 2025 11 :37am Supervision of high-risk Octob 2024 11:37am Family History No Family History Records Found Relationship Condition Age at Onset Recorded Date/T leoncio Unknown Family History?No pertinent history Unkno wn March 01, 2019 4:32pm Family History?No pertinent history Unkno wn March 01, 2019 4:32pm Relationship Condition Age at Onset Recorded Date/T leoncio brother Malignant neoplasm 14 Advance Directives No Advanced Directives Records Found Advance Directive Response Recorded Date/ Time Living Will No March 01, 2019 7:44pm Power of Holistic Nutritionist No March 01 9 7:44pm Advance Directive Response Recorded Date/ Time Living Will No December 17, 2021 1:58pm Power of Holistic Nutritionist No December 17 1:58pm Advance Directive Response Recorded Date/ Time Living Will No December 05, 2022 9:28am Power of Holistic Nutritionist No December 05 9:28am Advance Directive Response Recorded Date/ Time Living Will No December 05, 2022 8:28am Power of Holistic Nutritionist No December 05 8:28am Summary Purpose Additional Source Comments Goals (unrecognized section and content) Type Care Experience svdLabor Preferences -CB/BF classes: nolabor support person: Dwightlabor intervention preferences: []pain management options preferred: epiduralcut cord/dad catch: maybebreastfeeding: yesPP control planned: discusseddiscussed possible routes of delivery and associated risks: []special requests: [] Care Experience Labor Preferences-CB /BF classes: []labor support person: []labor intervention preferences: []pain management options preferred: []cut cord/dad catch: []: []PP control planned: []discussed possible routes of delivery and associated risks: []special requests: [] Care Experience svdLabor Preferences -CB/BF classes: nolabor support person: Faye intervention preferences: []pain management options preferred: probable epiduralcut cord/dad catch: cordbreastfeeding: yesPP control planned: discusseddiscussed possible routes of delivery and associated risks: []special requests: [] Care Teams (unrecognized sec tion and content) Team Status: Active Member Role Status Dates Dr. Ryley Beck DO Family Provider Active Dr. Irma Gandara MD Primary Care Provider Active Team Status: Inactive Member Role Status Dates Dr. Bambi Callaway DO Attending Provider Activ e Dr. Venkat Jain MD Primary Care Provider, Referring Provider Active Team Status: Active Member Role Status Dates Dr. Rocio Persaud MD Attending Pr ovider, Referring Provider, Other Provider Active Dr. Irma Gandara MD Primary Care Provider Active Team Status: Inactive Member Role Status Dates Dr. Irma Gandara MD Primary Care Provider, Referri ng Provider Active Dr. Rocio Persaud MD Attending Provider Active Team Status: Inactive Member Role Status Dates Dr. Rocio Persaud MD Attending Provider, Referr ing Provider Active Dr. Irma Gandara MD Primary Care Provider Active Team Status: Inactive Member Role Status Dates Dr. Irma Gandara MD Primary Care Provider Active Dr. Rocio Persaud MD Attending Provider, Referr ing Provider Active Team Status: Active Member Role Status Dates Dr. Ryley Beck DO Family Provider Active LUIS F Leiva Primary Care Provider Active Team Status: Inactive Member Role Status Dates Dr. Rocio Persaud MD Attending Provider, Referr ing Provider Active LUIS F Leiva Primary Care Provider Active Team Status: Inactive Member Role Status Dates LUIS F Leiva Primary Care Provider, Referring Provider Active Bisi Miller CNM Attending Provider Active Team Status: Inactive Member Role Status Dates LUIS F Leiva Primary Care Provider Active Bisi Miller CNM Attending Provider, Referring Pr ovider Active Team Status: Active Member Role Status Dates LUIS F Leiva Primary Care Provider Active Team Status: Inactive Member Role Status Dates LUIS F Leiva Primary Care Provider Active Start: October 27, 2024 End: October 27, 2024 Dr. Rocio Persaud MD Attending Provider Active Start: October 27, 2024 End: October 27, 2024 Dr. Rocio Persaud MD Referring Provider Active Start: October 27, 2024 End: October 27, 2024 Team Status: Inactive Member Role Status Dates LUIS F Leiva Primary Care Provider Active Start: November 02, 2024 End: November 02, 2024 Dr. Rocio Persaud MD Attending Provider Active Start: November 02, 2024 End: November 02, 2024 Dr. Rocio Persaud MD Referring Provider Active Start: November 02, 2024 End: November 02, 2024 Team Status: Inactive Member Role Status Dates LUIS F Leiva Primary Care Provider Active Start: November 25, 2024 End: November 25, 2024 LUIS F Leiva Referring Provider Active Start: November 25, 2024 End: November 25, 2024 Dr. Rocio Persaud MD Attending Provider Active Start: November 25, 2024 End: November 25, 2024 Team Status: Inactive Member Role Status Dates LUIS F Leiva Primary Care Provider Active Start: November 25, 2024 End: November 25, 2024 Dr. Rocio Persaud MD Attending Provider Active Start: November 25, 2024 End: November 25, 2024 Dr. Rocio Persaud MD Referring Provider Active Start: November 25, 2024 End: November 25, 2024 Team Status: Inactive Member Role Status Dates LUIS F Leiva Primary Care Provider Active Start: December 22, 2024 End: December 22, 2024 LUIS F Leiva Referring Provider Active Start: December 22, 2024 End: December 22, 2024 Dr. Bambi Callaway DO Attending Provider Activ e Start: December 22, 2024 End: December 22, 2024 Team Status: Inactive Member Role Status Dates LUIS F Leiva Primary Care Provider Active Start: December 22, 2024 End: December 22, 2024 Dr. Bambi Callaway DO Attending Provider Activ e Start: December 22, 2024 End: December 22, 2024 Dr. Bambi Callaway DO Referring Provider Activ e Start: December 22, 2024 End: December 22, 2024 Team Status: Inactive Member Role Status Dates LUIS F Leiva Primary Care Provider Active Start: January 18, 2025 End: January 18, 2025 Abdirizak Levy PA Referring Provider Active Start: January 18, 2025 End: January 18, 2025 Mariana Acosta FEED PROJECT ENGINEER, FEED PROJECT ENGINEER-C Attending Provider Active Start: January 18, 2025 End: January 18, 2025 Team Status: Inactive Member Role Status Dates LUIS F Leiva Primary Care Provider Active Start: February 16, 2025 End: February 16, 2025 Abdirizak Levy PA Referring Provider Active Start: February 16, 2025 End: February 16, 2025 Mariana Acosta FEED PROJECT ENGINEER, FEED PROJECT ENGINEER-C Attending Provider Active Start: February 16, 2025 End: February 16, 2025 Team Status: Active Member Role/Relationship Status Dates LUIS F Leiva Primary Care Provider Active Team Status: Inactive Member Role/Relationship Status Dates LUIS F Leiva Primary Care Provider Active Start: November 25, 2024 End: November 25, 2024 Abdirizak Levy PA Referring Provider Active Start: November 25, 2024 End: November 25, 2024 Dr. Rocio Persaud MD Attending Provider Active Start: November 25, 2024 End: November 25, 2024 Team Status: Inactive Member Role/Relationship Status Dates LUIS F Leiva Primary Care Provider Active Start: November 25, 2024 End: November 25, 2024 Dr. Rocio Persaud MD Attending Provider Active Start: November 25, 2024 End: November 25, 2024 Dr. Rocio Persaud MD Referring Provider Active Start: November 25, 2024 End: November 25, 2024 Team Status: Inactive Member Role/Relationship Status Dates LUIS F Leiva Primary Care Provider Active Start: December 22, 2024 End: December 22, 2024 LUIS F Leiva Referring Provider Active Start: December 22, 2024 End: December 22, 2024 Dr. Bambi Callaway DO Attending Provider Activ e Start: December 22, 2024 End: December 22, 2024 Team Status: Inactive Member Role/Relationship Status Dates LUIS F Leiva Primary Care Provider Active Start: December 22, 2024 End: December 22, 2024 Dr. Bambi Callaway , Attending Provider Activ e Start: December 22, 2024 End: December 22, 2024 Dr. Bambi Callaway , Referring Provider Activ e Start: December 22, 2024 End: December 22, 2024 Team Status: Inactive Member Role/Relationship Status Dates LUIS F Leiva Primary Care Provider Active Start: January 18, 2025 End: January 18, 2025 LUIS F Leiva Referring Provider Active Start: January 18, 2025 End: January 18, 2025 Mariana Acosta FEED PROJECT ENGINEER, FEED PROJECT ENGINEER-C Attending Provider Active Start: January 18, 2025 End: January 18, 2025 Team Status: Inactive Member Role/Relationship Status Dates LUIS F Leiva Primary Care Provider Active Start: February 16, 2025 End: February 16, 2025 LUIS F Leiva Referring Provider Active Start: February 16, 2025 End: February 16, 2025 Mariana Acosta FEED PROJECT ENGINEER, FEED PROJECT ENGINEER-C Attending Provider Active Start: February 16, 2025 End: February 16, 2025 Team Status: Inactive Member Role/Relationship Status Dates LUIS F Leiva Primary Care Provider Active Start: March 13, 2025 End: March 13, 2025 Abdirizak Levy PA Referring Provider Active Start: March 13, 2025 End: March 13, 2025 Jacinta Rojas CNM Attending Provider Active S tart: March 13, 2025 End: March 13, 2025 Team Status: Inactive Member Role/Relationship Status Dates LUIS F Leiva Primary Care Provider Active Start: December 22, 2024 End: December 22, 2024 Abdirizak Levy PA Referring Provider Active Start: December 22, 2024 End: December 22, 2024 Dr. Bambi Callaway , Attending Provider Activ e Start: December 22, 2024 End: December 22, 2024 Team Status: Inactive Member Role/Relationship Status Dates LUIS F Leiva Primary Care Provider Active Start: December 22, 2024 End: December 22, 2024 Dr. Bambi Callaway , Attending Provider Activ e Start: December 22, 2024 End: December 22, 2024 Dr. Bambi Callaway , Referring Provider Activ e Start: December 22, 2024 End: December 22, 2024 Team Status: Inactive Member Role/Relationship Status Dates LUIS F Leiva Primary Care Provider Active Start: January 18, 2025 End: January 18, 2025 LUIS F Leiva Referring Provider Active Start: January 18, 2025 End: January 18, 2025 Mariana Acosta FEED PROJECT ENGINEER, FEED PROJECT ENGINEER-C Attending Provider Active Start: January 18, 2025 End: January 18, 2025 Team Status: Inactive Member Role/Relationship Status Dates LUIS F Leiva Primary Care Provider Active Start: February 16, 2025 End: February 16, 2025 LUIS F Leiva Referring Provider Active Start: February 16, 2025 End: February 16, 2025 Mariana Acosta FEED PROJECT ENGINEER, FEED PROJECT ENGINEER-C Attending Provider Active Start: February 16, 2025 End: February 16, 2025 Team Status: Inactive Member Role/Relationship Status Dates LUIS F Leiva Primary Care Provider Active Start: March 13, 2025 End: March 13, 2025 LUIS F Leiva Referring Provider Active Start: March 13, 2025 End: March 13, 2025 Jacinta Rojas CNM Attending Provider Active S tart: March 13, 2025 End: March 13, 2025 Team Status: Inactive Member Role/Relationship Status Dates LUIS F Leiva Primary Care Provider Active Start: April 05, 2025 End: April 05, 2025 LUIS F Leiva Referring Provider Active Start: April 05, 2025 End: April 05, 2025 Mariana Acosta FEED PROJECT ENGINEER, FEED PROJECT ENGINEER-C Attending Provider Active Start: April 05, 2025 End: April 05, 2025 Team Status: Active Member Role/Relationship Status Dates LUIS F Leiva Primary Care Provider Active Start: April 05, 2025 Jacinta Rojas CNM Attending Provider Active S tart: April 05, 2025 Team Status: Inactive Member Role/Relationship Status Dates LUIS F Leiva Primary Care Provider Active Start: April 05, 2025 End: April 05, 2025 Jacinta Rojas CNM Attending Provider Active S tart: April 05, 2025 End: April 05, 2025 Team Status: Inactive Member Role/Relationship Status Dates LUIS F Leiva Primary Care Provider Active Start: April 20, 2025 End: April 20, 2025 LUIS F Leiva Referring Provider Active Start: April 20, 2025 End: April 20, 2025 Dr. Rocio Persaud MD Attending Provider Active Start: April 20, 2025 End: April 20, 2025 Team Status: Active Member Role/Relationship Status Dates LUIS F Leiva Primary Care Provider Active Start: April 20, 2025 Mariana Acosta FEED PROJECT ENGINEER, FEED PROJECT ENGINEER-C Attending Provider Active Start: April 20, 2025 Team Status: Inactive Member Role/Relationship Status Dates LUIS F Leiva Primary Care Provider Active Start: January 18, 2025 End: January 18, 2025 LUIS F Leiva Referring Provider Active Start: January 18, 2025 End: January 18, 2025 Mariana Acosta FEED PROJECT ENGINEER, FEED PROJECT ENGINEER-C Attending Provider Active Start: January 18, 2025 End: January 18, 2025 Team Status: Inactive Member Role/Relationship Status Dates LUIS F Leiva Primary Care Provider Active Start: February 16, 2025 End: February 16, 2025 LUIS F Leiva Referring Provider Active Start: February 16, 2025 End: February 16, 2025 Mariana Acosta FEED PROJECT ENGINEER, FEED PROJECT ENGINEER-C Attending Provider Active Start: February 16, 2025 End: February 16, 2025 Team Status: Inactive Member Role/Relationship Status Dates LUIS F Leiva Primary Care Provider Active Start: March 13, 2025 End: March 13, 2025 LUIS F Leiva Referring Provider Active Start: March 13, 2025 End: March 13, 2025 Jacinta Rojas CNM Attending Provider Active S tart: March 13, 2025 End: March 13, 2025 Team Status: Inactive Member Role/Relationship Status Dates LUIS F Leiva Primary Care Provider Active Start: April 05, 2025 End: April 05, 2025 LUIS F Leiva Referring Provider Active Start: April 05, 2025 End: April 05, 2025 Mariana Acosta FEED PROJECT ENGINEER, FEED PROJECT ENGINEER-C Attending Provider Active Start: April 05, 2025 End: April 05, 2025 Team Status: Inactive Member Role/Relationship Status Dates LUIS F Leiva Primary Care Provider Active Start: April 05, 2025 End: April 05, 2025 Jacinta Rojas CNM Attending Provider Active S tart: April 05, 2025 End: April 05, 2025 Team Status: Inactive Member Role/Relationship Status Dates LUIS F Leiva Primary Care Provider Active Start: April 20, 2025 End: April 20, 2025 LUIS F Leiva Referring Provider Active Start: April 20, 2025 End: April 20, 2025 Dr. Rocio Persaud MD Attending Provider Active Start: April 20, 2025 End: April 20, 2025 Team Status: Inactive Member Role/Relationship Status Dates LUIS F Leiva Primary Care Provider Active Start: April 20, 2025 End: April 20, 2025 Mariana Acosta FEED PROJECT ENGINEER, FEED PROJECT ENGINEER-C Attending Provider Active Start: April 20, 2025 End: April 20, 2025 Team Status: Inactive Member Role/Relationship Status Dates LUIS F Leiva Primary Care Provider Active Start: May 01, 2025 End: May 01, 2025 LUIS F Leiva Referring Provider Active Start: May 01, 2025 End: May 01, 2025 Jacinta Rojas CNM Attending Provider Active S tart: May 01, 2025 End: May 01, 2025 Team Status: Inactive Member Role/Relationship Status Dates LUIS F Leiva Primary Care Provider Active Start: May 18, 2025 End: May 18, 2025 LUIS F Leiva Referring Provider Active Start: May 18, 2025 End: May 18, 2025 Mariana Acosta FEED PROJECT ENGINEER, FEED PROJECT ENGINEER-C Attending Provider Active Start: May 18, 2025 End: May 18, 2025 Team Status: Active Member Role/Relationship Status Dates LUIS F Leiva Primary care physician Active Team Status: Inactive Member Role/Relationship Status Dates LUIS F Leiva Primary care physician Active Start: February 16, 2025 End: February 16, 2025 LUIS F Leiva Referring Provider Active Start: February 16, 2025 End: February 16, 2025 Mariana Acosta NP, FEED PROJECT ENGINEER-C Attending physician Active Start: February 16, 2025 End: February 16, 2025 Team Status: Inactive Member Role/Relationship Status Dates LUIS F Leiva Primary care physician Active Start: March 13, 2025 End: March 13, 2025 LUIS F Leiva Referring Provider Active Start: March 13, 2025 End: March 13, 2025 Jaicnta Rojas CNM Attending physician Active Start: March 13, 2025 End: March 13, 2025 Team Status: Inactive Member Role/Relationship Status Dates LUIS F Leiva Primary care physician Active Start: April 05, 2025 End: April 05, 2025 LUIS F Leiva Referring Provider Active Start: April 05, 2025 End: April 05, 2025 Mariana Acosta NP, FEED PROJECT ENGINEER-C Attending physician Active Start: April 05, 2025 End: April 05, 2025 Team Status: Inactive Member Role/Relationship Status Dates LUIS F Leiva Primary care physician Active Start: April 05, 2025 End: April 05, 2025 Jacinta Rojas CNM Attending physician Active Start: April 05, 2025 End: April 05, 2025 Team Status: Inactive Member Role/Relationship Status Dates LUIS F Leiva Primary care physician Active Start: April 20, 2025 End: April 20, 2025 LUIS F Leiva Referring Provider Active Start: April 20, 2025 End: April 20, 2025 Dr. Rocio Persaud MD Attending physician Active Start: April 20, 2025 End: April 20, 2025 Team Status: Inactive Member Role/Relationship Status Dates LUIS F Leiva Primary care physician Active Start: April 20, 2025 End: April 20, 2025 Mariana Acosta NP FEED PROJECT ENGINEER-C Attending physician Active Start: April 20, 2025 End: April 20, 2025 Team Status: Inactive Member Role/Relationship Status Dates LUIS F Leiva Primary care physician Active Start: May 01, 2025 End: May 01, 2025 LUIS F Leiva Referring Provider Active Start: May 01, 2025 End: May 01, 2025 Jacinta Rojas CNM Attending physician Active Start: May 01, 2025 End: May 01, 2025 Team Status: Inactive Member Role/Relationship Status Dates LUIS F Leiva Primary care physician Active Start: May 18, 2025 End: May 18, 2025 LUIS F Leiva Referring Provider Active Start: May 18, 2025 End: May 18, 2025 Mariana Acosta FEED PROJECT ENGINEER, FEED PROJECT ENGINEER-C Attending physician Active Start: May 18, 2025 End: May 18, 2025 Team Status: Inactive Member Role/Relationship Status Dates LUISF Leiva Primary care physician Active Start: May 31, 2025 End: May 31, 2025 LUIS F Leiva Referring Provider Active Start: May 31, 2025 End: May 31, 2025 Dr. Rocio Persaud MD Attending physician Active Start: May 31, 2025 End: May 31, 2025 Team Status: Active Member Role/Relationship Status Dates LUIS F Leiva Primary care physician Active Start: May 31, 2025 Dr. Rocio Persaud MD Attending physician Active Start: May 31, 2025 Dr. Rocio Persaud MD Referring Provider Active Start: May 31, 2025 Team Status: Inactive Member Role/Relationship Status Dates LUIS F Leiva Primary care physician Active Start: June 05, 2025 End: June 05, 2025 LUIS F Leiva Referring Provider Active Start: June 05, 2025 End: June 05, 2025 Dr. Rocio Persaud MD Attending physician Active Start: June 05, 2025 End: June 05, 2025 Team Status: Inactive Member Role/Relationship Status Dates LUIS F Leiva Primary care physician Active Start: May 31, 2025 End: May 31, 2025 Dr. Rocio Persaud MD Attending physician Active Start: May 31, 2025 End: May 31, 2025 Dr. Rocio Persaud MD Referring Provider Active Start: May 31, 2025 End: May 31, 2025 Team Status: Inactive Member Role/Relationship Status Dates LUIS F Leiva Primary care physician Active Start: June 14, 2025 End: June 14, 2025 LUIS F Leiva Referring Provider Active Start: June 14, 2025 End: June 14, 2025 Dr. Rocio Persaud MD Attending physician Active Start: June 14, 2025 End: June 14, 2025 INFORMATION SOURCE (unrecogn ized section and content) DATE CREATED AUTHOR 02/12/2024 [facility] DATE CREATED AUTHOR AUTHOR'S ORGANIZ ATION 11/08/2024 [facility] DATE CREATED AUTHOR AUTHOR'S ORGANIZ ATION 02/18/2025 [facility] DATE CREATED AUTHOR AUTHOR'S ORGANIZ ATION 06/16/2025 [facility] FOR RECORDS PERTAINING TO PATIENTS WHO ARE OR HAVE BEEN ENROLLED IN A CHEMICAL DEPENDENCY/SUBSTANCEABUSE PROGRAM, SOME INFORMATION MAY BE OMITTED. This clinical summary was aggregated from multiple sources. Caution should be exercised in using it in the provision of clinical care. This summary normalizes information from multiple sources, and as a consequence, information in this document may materially change the coding, format and clinical context of patient data. In addition, data may be omitted in some cases. CLINICAL DECISIONS SHOULD BE BASED ON THE PRIMARY CLINICAL RECORDS. [employer] provides no warranty or guarantee of the accuracy or completeness of information in this document.
--- OUTSIDE RECORDS SUMMARY | 2025-06-22 16:06 | XMS RPT_ITS | CCD ---
Author Organization [facility] Care Team Providers Care [facility] Name Role Phone Dr. Ryley Beck Primary Care Provider Dr. Ryley Beck Referring Provider Dr. Bambi Callaway Attending Provider 1([phone]) Dr. Rocio Persaud Attending Provider [phone] Karla DIABETES CLINICAL MANAGER, SANTIAGO Peña Attending Provider [phone] Dr. Ryley Beck Primary Care Provider Dr. Ryley Beck Referring Provider Dr. Bambi Callaway Attending Provider 1(3 30) Dr. Bambi Callaway Referring Provider 1(3 30) Dr. Bambi [...] Provider Dr. Rocio Persaud MD Attending Provider Dr. Rocio Persaud MD Referring Provider Abdirizak Abdul Primary Care Provider [phone] [...] Provider Dr. Rocio Persaud MD Attending Provider Mildred [...] Primary Care Unavailable Mildred, Luke Referring Unavailable [place] DIABETES CLINICAL MANAGER, Mariana Attending Unavailable Mildred, Luke Primary Care [...] Unavailabl e Mildred, Luke Primary Care Unavailable [place] DIABETES CLINICAL MANAGER, Mariana Attending Unavailable Mildred, Luke Primary Care Unavailable Mildred, Luke Primary Care Unavailable Marcanthony, Rocio Referring Unavailable Marcanthony, Rocio Attending Unavailable [place] DIABETES CLINICAL MANAGER, Mariana Attending Unavailable Mildred, Luke Referring Unavailable Mildred, Luke Primary Care Unavailable Mildred, Luke Primary Care Unavailable Mildred, Luke Referring Unavailable Marcanthony, Rocio Attending Unavailable Mildred, Luke Primary Care Unavailable Mildred, Luke Referring Unavailable Jacinta Rojas Attending Unavailable Karla DIABETES CLINICAL MANAGER, Mariana Attending Unavailable Mildred, Luke Primary Care [...] PO daily November 04, 2024 1:00am Multivit 60-Vwvm-Efuydw 1-Dha (Pnv-Dha) 27 mg iron-1 mg -300 mg capsule (20 sources) Start: 05-14-2021 take 1 capsule by mouth once daily Multivit 82-Ewox-Lbdkgy 1-Dha (Pnv-Dha) 27 mg iron-1 mg -300 mg capsule Active 1 CAP PO DAILY May 14, 2021 2:17pm Start: 05-14-2021 Multivit 47-Ir on-Folate 1-Dha (Pnv-Dha) 27 mg iron-1 mg -300 mg capsule Active CAP PO May 14, 2021 2:17pm Start: 05-14-2021 End: 11-04-2024 Multivit 56-Rapa-Feyykt 1-Dh a (Pnv-Dha) 27 mg iron-1 mg -300 mg capsule Discontinued 1 NMA PO DAILY May 14, 2021 12:00am November 04, 2024 12:42pm Start: 05-14-2021 take 1 capsule by mo [facility] once daily Multivit 69-Wblk-Qggknl 1-Dha (Pnv-Dha) 27 mg iron-1 mg -300 mg capsule Active 1 CAP PO DAILY May 13, 2021 11:00pm Start: 05-14-2021 take 1 capsule by mo [facility] once daily Multivit 78-Cktv-Rfzcjk 1-Dha (Pnv-Dha) 27 mg iron-1 mg -300 mg capsule Active 1 CAP PO DAILY May 14, 2021 12:00am nijxa red (20 sources) Start: 06-28-2021 [facility] nijxa red Active 1 [...] 12:00am May 14, 2021 2:17pm lactobacillus acidophilus [id number] unt oral capsule (20 sources) Start: 03-01-2019 [...] Start: 04-20-2025 take 1 capsule by mo [facility] once daily Levothyroxine 37.5 mcg capsule Active 37.5 ug PO daily 05 09April 20, 2025 9:57am Start: 04-20-2025 take 0.5 tablet by m [facility] once daily Levothyroxine 75 mcg capsule Active [...] Start: 11-04-2024 take 1 capsule by mo [facility] once daily Levothyroxine 37.5 mcg capsule Active [...] on above: using Thyromin Capsu les from [facility] draw TSH level with labs Unclassified (2 [...] Test Name Value Interpretation Reference Range Facility Behavioral Technician Office Visit Reporton 06-14-2025 Behavioral Technician Office Visit Report [facility] [address], [address] [place] [address] OFFICE VISIT Date of Service: 06/14/25 MR#: [id number] Acct: [id number] Name: MICHELINE PERALES Rep #: [id number] : 2000 Provider: Dr. Rocio hoang MD Age/Sex: 25/F Location[place] [facility] [place] Status: Signed Intake Vital Signs 05/18/25 09:56 06/05/25 08:46 06/14/25 11:40 06/14/25 11:43 Height 5 ft 1 in 5 ft 1 in 5 ft 1 in 5 ft 1 in Weight: 190 lb 7 oz BMI 35.9 BP 105/68 Intake Visit Reasons: 38 WK OB Plastic Printer Required: No Is patient in pain?: No [...] 1 current occupational status: unemployed current occupation: [employer] pets and animals: No history of recent travel: No sexually active: Yes Smoking Status: Never smoker second hand exposure: No alcohol intake: never substance use type: does not use diet: other well-balanced diet: daily or most days caffeine: No eating out: rarely or never during the past year weight has: remained stable what type of physical activity do you participate in: none radha/scientology: None seatbelt use: always do you feel safe at home: Yes additional social history: [employer] History 3 Elective abortions Hx [...] oz 111/7 (more content not included)... Normal [facility] Behavioral Technician Office Visit Reporton 06-05-2025 Behavioral Technician Office Visit Report [facility] [address], [address] [place] [address] OFFICE VISIT Date of Service: 06/05/25 MR#: [id number] Acct: [id number] Name: MICHELINE PERALES Rep #: [id number] : 2000 Provider: Dr. Rocio hoang MD Age/Sex: 25/F Location[place] [facility] [place] Status: Signed Intake Vital Signs 05/18/25 09:56 05/31/25 09:27 06/05/25 08:45 06/05/25 08:46 Height 5 ft 1 in 5 ft 1 in 5 ft 1 in 5 ft 1 in Weight: 189 lb BMI 35.6 BP 106/73 Intake Visit Reasons: 37 WK OB Plastic Printer Required: No Is patient in pain?: No [...] 1 current occupational status: unemployed current occupation: [employer] pets and animals: No history of recent travel: No sexually active: Yes Smoking Status: Never smoker second hand exposure: No alcohol intake: never substance use type: does not use diet: other well-balanced diet: daily or most days caffeine: No eating out: rarely or never during the past year weight has: remained stable what type of physical activity do you participate in: none radha/scientology: None seatbelt use: always do you feel safe at home: Yes additional social history: [employer] History 3 Elective abortions Hx [...] ?-???-???-???-???-???-? ?? (more content not included)... Normal [facility] Rule out Beta Strep (Grp. B) on 06-02-2025 LISA Group B Beta Streptococcus is not isolated. Normal [facility] Comment on above: Performed By: #### M 100.9697 #### [facility] Laboratory [facility] [place], [address] Laboratory - Chemistry and C hemistry - challengeOrdered By: Rocio Persaud on 05-31-2025 Glucose Ql (U) Negative [facility] Laboratory - UrinalysisOrder ed By: Rocio Persaud on 05-31-2025 Protein Ql (U) Negative [facility] Behavioral Technician Office Visit Reporton 05-31-2025 Behavioral Technician Office Visit Report [facility] [address] [place] [address], [address] [place] [address] OFFICE VISIT Date of Service: 05/31/25 MR#: [id number] Acct: [id number] Name: MICHELINE PERALES Rep #: [id number] : 2000 Provider: Dr. Rocio hoang MD Age/Sex: 25/F Location: [facility] [place] Status: Signed Intake Vital Signs 04/20/25 09:21 05/18/25 09:56 05/31/25 09:25 05/31/25 09:27 Height 5 ft 1 in 5 ft 1 in 5 ft 1 in 5 ft 1 in Weight: 188 lb 3 oz BMI 35.5 BP 130/77 H Intake Visit Reasons: 36 wk ob Chief Complaint: 36wk OB Plastic Printer Required: No Is patient in pain?: No [...] 1 current occupational status: unemployed current occupation: [employer] pets and animals: No history of recent travel: No sexually active: Yes Smoking Status: Never smoker second hand exposure: No alcohol intake: never substance use type: does not use diet: other well-balanced diet: daily or most days caffeine: No eating out: rarely or never during the past year weight has: remained stable what type of physical activity do you participate in: none radha/scientology: None seatbelt use: always do you feel safe at home: Yes additional social history: [employer] History 3 Elective abortions Hx Para 1 Spontaneous abortions 1 Hx # Term Pregnancies Ectopic pregnancies Hx # Pregnancies Multiple births # of living children 1 Past Pregnancies Del. Date Name GA/Weeks Outcome Route Bth Weight Infant Gen Labor Lgth Anesthesia Del Locatn Provider FOB Unknown December 2022 spontaneous 12/17/21 Romario 39 live - full term 7lbs 3oz Male epidural [facility] V graham Quiroz Subhash Delivery Date: Last [...] 9w 4d (more content not included)... Normal [facility] Screening beta-hemolytic Str eptococcus cultureOrdered By: Rocio Persaud on 05-31-2025 Beta-hemolytic Streptococcus culture Group B Beta Streptococcus is not isolated. [facility] Laboratory - Chemistry and C hemistry - challengeOrdered By: Mariana Acosta on 05-18-2025 Glucose Ql (U) Negative [facility] Laboratory - UrinalysisOrder ed By: Mariana Acosta on 05-18-2025 Protein Ql (U) Negative [facility] Behavioral Technician Office Visit Reporton 05-18-2025 Behavioral Technician Office Visit Report [facility] [address], [address] [place] [address] OFFICE VISIT Date of Service: 05/18/25 MR#: [id number] Acct: [id number] Name: MICHELINE PERALES Rep #: [id number] 4 : 2000 Provider: SANTIAGO leiva Age/Sex: 25/F Location: [facility] [place] Status: Signed Intake Vital Signs 04/20/25 09:21 05/01/25 14:02 05/18/25 09:52 05/18/25 09:56 Height 5 ft 1 in 5 ft 1 in 5 ft 1 in 5 ft 1 in Weight: 185 lb 1 oz BMI 34.9 BP 106/67 Intake Visit Reasons: 34 wk ob Chief Complaint: 34 Week OB Plastic Printer Required: No Is patient in pain?: No [...] 1 current occupational status: unemployed current occupation: [employer] pets and animals: No history of recent travel: No sexually active: Yes Smoking Status: Never smoker second hand exposure: No alcohol intake: never substance use type: does not use diet: other well-balanced diet: daily or most days caffeine: No eating out: rarely or never during the past year weight has: remained stable what type of physical activity do you participate in: none radha/scientology: None seatbelt use: always do you feel safe at home: Yes additional social history: [employer] History 3 Elective abortions Hx [...] -???-???-???-???-???-?? ?-???-???-???-???-???-? (more content not included)... Normal [facility] Laboratory - Chemistry and C hemistry - challengeOrdered By: Jacinta Rojas on 05-01-2025 Glucose Ql (U) Negative [facility] Laboratory - UrinalysisOrder ed By: Jacinta Rojas on 05-01-2025 Protein Ql (U) Negative [facility] Behavioral Technician Office Visit Reporton 05-01-2025 Behavioral Technician Office Visit Report [facility] [address], [address] [place] [address] OFFICE VISIT Date of Service: 05/01/25 MR#: [id number] Acct: [id number] Name: MICHELINE PERALES Rep #: [id number] : 2000 Provider: BRAN Forrester ams Age/Sex: 25/F Location: [facility] [place] Status: Signed Intake Vital Signs 04/20/25 09:21 04/20/25 13:17 05/01/25 14:02 Height 5 ft 1 in 5 ft 1 in 5 ft 1 in Weight: 180 lb 9 oz BMI 34.1 BP 116/78 Intake Visit Reasons: 32wk OB Plastic Printer Required: No Is patient in pain?: No [...] 1 current occupational status: unemployed current occupation: [employer] pets and animals: No history of recent travel: No sexually active: Yes Smoking Status: Never smoker second hand exposure: No alcohol intake: never substance use type: does not use diet: other well-balanced diet: daily or most days caffeine: No eating out: rarely or never during the past year weight has: remained stable what type of physical activity do you participate in: none radha/scientology: None seatbelt use: always do you feel safe at home: Yes additional social history: [employer] History 3 Elective abortions Hx [...] 111/76 -???-? (more content not included)... Normal [facility] Laboratory - Chemistry and C hemistry - challengeOrdered By: Rocio Persaud on 04-20-2025 Glucose Ql (U) Negative [facility] Laboratory - UrinalysisOrder ed By: Rocio Persaud on 04-20-2025 Protein Ql (U) Negative [facility] Behavioral Technician Office Visit Reporton 04-20-2025 Behavioral Technician Office Visit Report [facility] [address], [address] [place] [address] OFFICE VISIT Date of Service: 04/20/25 MR#: [id number] Acct: [id number] Name: MICHELINE PERALES Rep #: [id number] 9 : 2000 Provider: Dr. Rocio hoang MD Age/Sex: 25/F Location: [facility] [place] Status: Signed Intake Vital Signs 02/16/25 09:48 04/05/25 10:02 04/20/25 09:19 04/20/25 09:21 Height 5 ft 1 in 5 ft 1 in 5 ft 1 in 5 ft 1 in Weight: 177 lb 1 oz BMI 33.4 BP 100/65 Intake Visit Reasons: 30 wk ob Plastic Printer Required: No Is patient in pain?: No [...] Period: 04/30/24 Zika: Zika virus screening: [facility] History Infertility associated with anovulation Hypothyroidism [...] 1 current occupational status: unemployed current occupation: [employer] pets and animals: No history of recent travel: No sexually active: Yes Smoking Status: Never smoker second hand exposure: No alcohol intake: never substance use type: does not use diet: other well-balanced diet: daily or most days caffeine: No eating out: rarely or never during the past year weight has: remained stable what type of physical activity do you participate in: none radha/scientology: None seatbelt use: always do you feel safe at home: Yes additional social history: [employer] History 3 Elective abortions Hx [...] 11/25/24 -???-???-??? (more content not included)... Normal [facility] T4 Free Directon 04-20-2025 T4 FREE DIRECT 0.80 ng/dL Normal 0.76-1.46 [facility] Comment on above: Performed By: #### L 506.0400, L501.9520 ####[facility] [id number] [place], [address] T4 freeOrdered By: Mariana mcbride on 04-20-2025 Free T4 [Mass/Vol] 0.80 ng/dL 0.76-1.46 [facility] TSH DL <= 0.005 mIU/L QnOrde red By: Mariana Acosta on 04-20-2025 TSH Qn 3.700 uIU/mL 0.300-4.200 [facility] Thyroid Stim Hormone (TSH)on 04-20-2025 TSH 3.700 uIU/mL Normal 0.300-4.200 [facility] Comment on above: Performed By: #### L 506.0400, L501.9520 ####[facility] [address] [place], [address] Absolute lymphocyte countOrd ered By: Jacinta Rojas on 04-05-2025 Lymphocytes Auto (Unsp spec) [#/Vol] 1.70 10*3/uL 0.83-4.51 [facility] Absolute neutrophil countOrd ered By: Jacinta Rojas on 04-05-2025 Neutrophils (Bld) [#/Vol] 7.6 10*3/uL 2.0-7.7 [facility] Automated lymphocyte count a s percentage of total leukocytesOrdered By: Jacinta Rojas on 04-05-2025 Lymphocytes/100 WBC Auto (Unsp spec) 16.9 % Low 19-41 [facility] Basophil percentageOrdered B y: Jacinta Rojas on 04-05-2025 Basophils/100 WBC (Bld) 0.2 % 0-1 [facility] CBC W/Diff, Automatedon 03-09 Absolute Lymph 1.70 X10 3/uL Normal 0.83-4.51 [facility] Comment on above: Performed By: #### L 3890.6006, L509.8002, L100.0100, L501.0250 #### [facility] Laboratory [address] [place], [address] Absolute Neut 7.6 X10 3/uL Normal 2.0-7.7 [facility] Comment on above: Performed By: #### L 3890.6006, L509.8002, L100.0100, L501.0250 #### [facility] Laboratory [address] [place], [address] Basophils/100 WBC (Bld) 0.2 % Normal 0-1 [facility] Comment on above: Performed By: #### L 3890.6006, L509.8002, L100.0100, L501.0250 #### [facility] Laboratory [address] [place], [address] Eosinophils/100 WBC (Bld) 0.7 % Normal 0-5 [facility] Comment on above: Performed By: #### L 3890.6006, L509.8002, L100.0100, L501.0250 #### [facility] Laboratory [address] [place], [address] Erythrocyte distribution width (RBC) [Ratio] 13.7 % Normal 11.6-14.6 [facility] Comment on above: Performed By: #### L 3890.6006, L509.8002, L100.0100, L501.0250 #### [facility] Laboratory [address] [place], [address] Hematocrit (Bld) [Volume fraction] 35.7 % Low 37-47 [facility] Comment on above: Performed By: #### L 3890.6006, L509.8002, L100.0100, L501.0250 #### [facility] Laboratory [address] [place], [address] Hemoglobin (Bld) [Mass/Vol] 12.1 g/dL Normal 12.0-15.0 [facility] Comment on above: Performed By: #### L 3890.6006, L509.8002, L100.0100, L501.0250 #### [facility] Laboratory [address] [place], [address] IG% 1.000 High 0.0-0.9 [facility] Comment on above: Result Comment: IG% - Immature Granulocytes (promyelocytes, myelocytes and metamyelocytes) > 1% indicates that a LEFT SHIFT is Present. Performed By: #### L 3890.6006, L509.8002, L100.0100, L501.0250 #### [facility] Laboratory [address] [place], [address] Lymphocytes/100 WBC (Bld) 16.9 % Low 19-41 [facility] Comment on above: Performed By: #### L 3890.6006, L509.8002, L100.0100, L501.0250 #### [facility] Laboratory [address] [place], [address] MCH (RBC) [Entitic mass] 31.3 pg Normal 27.0-32.0 [facility] Comment on above: Performed By: #### L 3890.6006, L509.8002, L100.0100, L501.0250 #### [facility] Laboratory [address] [place], [address] MCHC (RBC) [Mass/Vol] 33.9 g/dL Normal 32-36 [facility] Comment on above: Performed By: #### L 3890.6006, L509.8002, L100.0100, L501.0250 #### [facility] Laboratory [address] [place], [address] MCV (RBC) [Entitic vol] 92.2 fL Normal 81-99 [facility] Comment on above: Performed By: #### L 3890.6006, L509.8002, L100.0100, L501.0250 #### [facility] Laboratory [address] [place], [address] Monocytes/100 WBC (Bld) 6.3 % Normal 0-10 [facility] Comment on above: Performed By: #### L 3890.6006, L509.8002, L100.0100, L501.0250 #### [facility] Laboratory [address] [place], [address] Neutrophils/100 WBC (Bld) 74.9 % High 47-70 [facility] Comment on above: Performed By: #### L 3890.6006, L509.8002, L100.0100, L501.0250 #### [facility] Laboratory [address] [place], [address] Nucleated RBC (Bld) [#/Vol] 0 10*3/uL Normal 0-5 [facility] Comment on above: Performed By: #### L 3890.6006, L509.8002, L100.0100, L501.0250 #### [facility] Laboratory [address] [place], [address] Platelet mean volume (Bld) [Entitic vol] 10.4 fL Normal 6.2-12.0 [facility] Comment on above: Performed By: #### L 3890.6006, L509.8002, L100.0100, L501.0250 #### [facility] Laboratory [address] [place], [address] Platelets (Bld) [#/Vol] 212 10*3/uL Normal 150-450 [facility] Comment on above: Performed By: #### L 3890.6006, L509.8002, L100.0100, L501.0250 #### [facility] Laboratory [address] [place], [address] RBC (Bld) [#/Vol] 3.87 10*6/uL Low 4.2-5.4 [facility] Comment on above: Performed By: #### L 3890.6006, L509.8002, L100.0100, L501.0250 #### [facility] Laboratory [address] [place], [address] RDW SD 46.4 fl High 35.1-43.9 [facility] Comment on above: Performed By: #### L 3890.6006, L509.8002, L100.0100, L501.0250 #### [facility] Laboratory [address] [place], [address] WBC (Bld) [#/Vol] 10.1 10*3/uL Normal 4.4-11.0 [facility] Comment on above: Performed By: #### L 3890.6006, L509.8002, L100.0100, L501.0250 #### [facility] Laboratory [address] [place], [address] Eosinophil percentageOrdered By: Jacinta Rojas on 04-05-2025 Eosinophils/100 WBC (Bld) 0.7 % 0-5 [facility] Erythrocyte distribution wid th ratioOrdered By: Jacinta Rojas on 04-05-2025 Erythrocyte distribution width (RBC) [Ratio] 13.7 % 11.6-14.6 [facility] Erythrocyte distribution wid th standard deviationOrdered By: Jacinta Rojas on 04-05-2025 Erythrocyte distribution width (RBC) [Ratio] 46.4 fl High 35.1-43.9 [facility] Glucose Challenge Gest 1H 50 haroldo 04-05-2025 GLU GEST 50g 1H 111 mg/dL Normal 70-140 [facility] Comment on above: Performed By: #### L 3890.6006, L509.8002, L100.0100, L501.0250 #### [facility] Laboratory [address] [address] [place], [place], [address] Glucose measurement at 2 ana rs post-dose gestational glucose tolerance testOrdered By: Jacinta Rojas on 04-05-2025 Glucose [Mass/Vol] 111 mg/dL 70-140 [facility] HIVon 04-05-2025 HIV Non-Reactive Normal Nonreactive [facility] Comment on above: Result Comment: Non- Reactive Reactive Repeatedly reactive samples must be confirmed according to CDC recommended confirmatory algorithms. The subresults for either HIVAG or AHIV can be used as an aid in the selection of the confirmation algorithm for reactive samples. Send out specimens with Reactive results to [facility] for confirmation. Order the HIV antibody detection and differentiation: [id number] Performed By: #### L 3890.6006, L509.8002, L100.0100, L501.0250 ####[facility] [id number] [place], [address] Hematocrit Auto (Bld) [Volum e fraction]Ordered By: Jacinta Rojas on 04-05-2025 Hematocrit (Bld) [Volume fraction] 35.7 % Low 37-47 [facility] Hemoglobin measurementOrdere d By: Jacinta Rojas on 04-05-2025 Hemoglobin (Bld) [Mass/Vol] 12.1 g/dL 12.0-15.0 [facility] Immature granulocytes/100 WB C Auto (Bld)Ordered By: Jacinta Rojas on 04-05-2025 Immature granulocytes/100 WBC (Bld) 1.000 % High 0.0-0.9 [facility] Comment on above: IG% - Immature Granu locytes (promyelocytes, myelocytes and metamyelocytes) > 1% indicates that a LEFT SHIFT is Present. Laboratory - Chemistry and C hemistry - challengeOrdered By: Mariana Acosta on 04-05-2025 Glucose Ql (U) Negative [facility] Laboratory - UrinalysisOrder ed By: Mariana Acosta on 04-05-2025 Protein Ql (U) Negative [facility] MCV (mean corpuscular volume ) determinationOrdered By: Jacinta Rojas on 04-05-2025 MCV (RBC) [Entitic vol] 92.2 fL 81-99 [facility] Mean corpuscular hemoglobin (MCH) determinationOrdered By: Jacinta Rojas on 04-05-2025 MCH (RBC) [Entitic mass] 31.3 pg 27.0-32.0 [facility] Mean corpuscular hemoglobin concentration (MCHC) determinationOrdered By: Jacinta Rojas on 04-05-2025 MCHC (RBC) [Mass/Vol] 33.9 g/dL 32-36 [facility] Mean platelet volume determi nationOrdered By: Jacinta Rojas on 04-05-2025 Platelet mean volume (Bld) [Entitic vol] 10.4 fL 6.2-12.0 [facility] Monocyte percentageOrdered B y: Jacinta Rojas on 04-05-2025 Monocytes/100 WBC (Bld) 6.3 % 0-10 [facility] Neutrophil percentageOrdered By: Jacinta Rojas on 04-05-2025 Neutrophils/100 WBC (Bld) 74.9 % High 47-70 [facility] No Panel InformationOrdered By: Jacinta Rojas on 04-05-2025 HIV (1&2) Antibody Non-Reactive Nonreactive [facility] Comment on above: Non-ReactiveReactive Repeatedly reactive samples must be confirmed according to CDC recommended confirmatory algorithms. The subresults for either HIVAG or AHIV can be used as an aid in the selection of the confirmation algorithm for reactive samples.Send out specimens with Reactive results to [facility] for confirmation.Order the HIV antibody detection and differentiation: #[id number] Nucleated red blood cell per centageOrdered By: Jacinta Rojas on 04-05-2025 Nucleated RBC/100 WBC (Bld) [Ratio] 0 % 0-5 [facility] Behavioral Technician Office Visit Reporton 04-05-2025 Behavioral Technician Office Visit Report [facility], [address] [place] [address] OFFICE VISIT Date of Service: 04/05/25 MR#: [id number] Acct: [id number] Name: MICHELINE PERALES Rep #: [id number] : 2000 Provider: SANTIAGO leiva Age/Sex: 24/F [place] [facility] [place]: Signed Intake Vital Signs 01/18/25 13:04 03/13/25 13:20 04/05/25 09:58 04/05/25 10:02 Height 5 ft 1 in 5 ft 1 in 5 ft 1 in 5 ft 1 in Weight: 174 lb 4 oz BMI 32.9 BP 104/70 Intake Visit Reasons: 28 wk ob/glucose Chief Complaint: 28 Week OB/Glucose Plastic Printer Required: No Is patient in pain?: No [...] 1 current occupational status: unemployed current occupation: [employer] pets and animals: No history of recent travel: No sexually active: Yes Smoking Status: Never smoker second hand exposure: No alcohol intake: never substance use type: does not use diet: other well-balanced diet: daily or most days caffeine: No eating out: rarely or never during the past year weight has: remained stable what type of physical activity do you participate in: none radha/scientology: None seatbelt use: always do you feel safe at home: Yes additional social history: [employer] History 3 Elective abortions Hx [...] oz 1 (more content not included)... Normal [facility] Platelet countOrdered By: Azalea Rojas on 04-05-2025 Platelets (Bld) [#/Vol] 212 10*3/uL 150-450 [facility] RBC Auto (Bld) [#/Vol]Ordere d By: Jacinta Rojas on 04-05-2025 RBC (Bld) [#/Vol] 3.87 10*6/uL Low 4.2-5.4 [facility] Syphilis Antibodieson 2024 Syphilis Abs Non-Reactive Normal Nonreactive [facility] Comment on above: Performed By: #### L 3890.6006, L509.8002, L100.0100, L501.0250 #### [facility] Laboratory [address] [place], [address] White blood cell (WBC) count Ordered By: Jacinta Rojas on 04-05-2025 WBC (Bld) [#/Vol] 10.1 10*3/uL 4.4-11.0 [facility] Laboratory - Chemistry and C hemistry - challengeOrdered By: Jacinta Rojas on 03-13-2025 Glucose Ql (U) Negative [facility] Laboratory - UrinalysisOrder ed By: Jacinta Rojas on 03-13-2025 Protein Ql (U) Negative [facility] Behavioral Technician Office Visit Reporton 03-13-2025 Behavioral Technician Office Visit Report [facility] [address], [address] [place] [address] OFFICE VISIT Date of Service: 03/13/25 MR#: [id number] Acct: [id number] Name: MICHELINE PERALES Rep #: [id number] : 2000 Provider: BRAN Forrester ams Age/Sex: 24/F [place] [facility] [place] Status: Signed Intake Vital Signs 01/18/25 13:04 02/16/25 09:48 03/13/25 13:20 Height 5 ft 1 in 5 ft 1 in 5 ft 1 in Weight: 171 lb 4 oz BMI 32.3 BP 107/71 Intake Visit Reasons: 25 wk ob Chief Complaint: 25wk OB Plastic Printer Required: No Is patient in pain?: No [...] 1 current occupational status: unemployed current occupation: [employer] pets and animals: No history of recent travel: No sexually active: Yes Smoking Status: Never smoker second hand exposure: No alcohol intake: never substance use type: does not use diet: other well-balanced diet: daily or most days caffeine: No eating out: rarely or never during the past year weight has: remained stable what type of physical activity do you participate in: none radha/scientology: None seatbelt use: always do you feel safe at home: Yes additional social history: [employer] History 3 Elective abortions Hx [...] 157 l (more content not included)... Normal [facility] Laboratory - Chemistry and C hemistry - challengeOrdered By: Mariana Acosta on 02-16-2025 Glucose Ql (U) Negative [facility] Laboratory - UrinalysisOrder ed By: Mariana Acosta on 02-16-2025 Protein Ql (U) Negative [facility] Behavioral Technician Office Visit Reporton 02-16-2025 Behavioral Technician Office Visit Report [facility] [address], [address] [place] [address] OFFICE VISIT Date of Service: 02/16/25 MR#: [id number] Acct: [id number] Name: MICHELINE PERALES Rep #: [id number] : 2000 Provider: SANTIAGO leiva Age/Sex: 24/F [place] [facility] [place] Status: Signed Intake Vital Signs 01/18/25 13:04 02/16/25 09:48 Height 5 ft 1 in 5 ft 1 in Weight: 165 lb 4 oz BMI 31.2 BP 114/64 Intake Visit Reasons: 21 wk ob Chief Complaint: 21 Week OB Plastic Printer Required: No Is patient in pain?: No [...] 1 current occupational status: unemployed current occupation: [employer] pets and animals: No history of recent travel: No sexually active: Yes Smoking Status: Never smoker second hand exposure: No alcohol intake: never substance use type: does not use diet: other well-balanced diet: daily or most days caffeine: No eating out: rarely or never during the past year weight has: remained stable what type of physical activity do you participate in: none radha/scientology: None seatbelt use: always do you feel safe at home: Yes additional social history: [employer] History 3 Elective abortions Hx [...] -???-???-???-???-???-?? ? (more content not included)... Normal [facility] Laboratory - Chemistry and C hemistry - challengeOrdered By: Mariana Acosta on 01-18-2025 Glucose Ql (U) Negative [facility] Laboratory - UrinalysisOrder ed By: Mariana Acosta on 01-18-2025 Protein Ql (U) Negative [facility] Behavioral Technician Office Visit Reporton 01-18-2025 Behavioral Technician Office Visit Report [facility] [address], [address] [place] [address] OFFICE VISIT Date of Service: 01/18/25 MR#: [id number] Acct: [id number] Name: MICHELINE PERALES Rep #: [id number] : 2000 Provider: SANTIAGO leiva Age/Sex: 24/F [place] [facility] [place] Status: Signed Intake Vital Signs 11/25/24 13:44 12/22/24 10:15 01/18/25 13:04 Height 5 ft 1 in 5 ft 1 in 5 ft 1 in Weight: 160 lb 6 oz BMI 30.2 BP 110/60 Intake Visit Reasons: 17 wk ob Chief Complaint: 17 Week OB Plastic Printer Required: No Is patient in pain?: No [...] 1 current occupational status: unemployed current occupation: [employer] pets and animals: No history of recent travel: No sexually active: Yes Smoking Status: Never smoker second hand exposure: No alcohol intake: never substance use type: does not use diet: other well-balanced diet: daily or most days caffeine: No eating out: rarely or never during the past year weight has: remained stable what type of physical activity do you participate in: none radha/scientology: None seatbelt use: always do you feel safe at home: Yes additional social history: [employer] History 3 Elective abortions Hx [...] US 12/22/24 (more content not included)... Normal [facility] Misc.on 12-29-2024 [facility] Misc. 4 COMMENT Normal . [facility] Comment on above: Order Comment: [id number] TSH R AB SERUM FZ Result Comment: Test Ordered: [id number] TSH Receptor Antibody (TBII) TSH Receptor Antibody (TBII) <0.3 U/L ES Reference Range: . Reference Range: Antibody Titer: <1.0 U/L = Negative 1.1 - 1.5 U/L = Equivocal >1.5 U/L = Positive Performed at: [facility] [address] [place] [id number] District Superintendent: Steve Leslie MD, Phone: [phone] Performed at: [facility] [id number] District Superintendent: Eleazar Gr PhD, Phone: [phone] Performed By: #### L 3410.9998 #### [facility] Laboratory [facility] [address] [place], [place], [address] Absolute lymphocyte countOrd ered By: Rocio Persaud on 12-22-2024 Lymphocytes Auto (Unsp spec) [#/Vol] 1.49 10*3/uL 0.83-4.51 [facility] Absolute neutrophil countOrd ered By: Rocio Persaud on 12-22-2024 Neutrophils (Bld) [#/Vol] 6.0 10*3/uL 2.0-7.7 [facility] Automated lymphocyte count a s percentage of total leukocytesOrdered By: Rocio Persaud on 12-22-2024 Lymphocytes/100 WBC Auto (Unsp spec) 18.2 % Low 19-41 [facility] Basophil percentageOrdered B y: Rocio Persaud on 12-22-2024 Basophils/100 WBC (Bld) 0.2 % 0-1 [facility] CBC W/Diff, Automatedon 12-06 Absolute Lymph 1.49 X10 3/uL Normal 0.83-4.51 [facility] Comment on above: Performed By: #### B TS, L509.8002, L509.4006, L3890.6301, L3890.6102, L501.9520, L506.0400, L3890.6006, L100.0100 ####[facility] [address] [place], [address] Absolute Neut 6.0 X10 3/uL Normal 2.0-7.7 [facility] Comment on above: Performed By: #### B TS, L509.8002, L509.4006, L3890.6301, L3890.6102, L501.9520, L506.0400, L3890.6006, L100.0100 ####[facility] [address] [place], [address] Basophils/100 WBC (Bld) 0.2 % Normal 0-1 [facility] Comment on above: Performed By: #### B TS, L509.8002, L509.4006, L3890.6301, L3890.6102, L501.9520, L506.0400, L3890.6006, L100.0100 ####[facility] [address] [place], [address] Eosinophils/100 WBC (Bld) 2.0 % Normal 0-5 [facility] Comment on above: Performed By: #### B TS, L509.8002, L509.4006, L3890.6301, L3890.6102, L501.9520, L506.0400, L3890.6006, L100.0100 ####[facility] [address] [place], [address] Erythrocyte distribution width (RBC) [Ratio] 13.5 % Normal 11.6-14.6 [facility] Comment on above: Performed By: #### B TS, L509.8002, L509.4006, L3890.6301, L3890.6102, L501.9520, L506.0400, L3890.6006, L100.0100 ####[facility] [address] [place], [address] Hematocrit (Bld) [Volume fraction] 37.8 % Normal 37-47 [facility] Comment on above: Performed By: #### B TS, L509.8002, L509.4006, L3890.6301, L3890.6102, L501.9520, L506.0400, L3890.6006, L100.0100 ####[facility] [address] [place], [address] Hemoglobin (Bld) [Mass/Vol] 13.2 g/dL Normal 12.0-15.0 [facility] Comment on above: Performed By: #### B TS, L509.8002, L509.4006, L3890.6301, L3890.6102, L501.9520, L506.0400, L3890.6006, L100.0100 ####[facility] [address] [place], [address] IG% 0.500 Normal 0.0-0.9 [facility] Comment on above: Result Comment: IG% - Immature Granulocytes (promyelocytes, myelocytes and metamyelocytes) > 1% indicates that a LEFT SHIFT is Present. Performed By: #### B TS, L509.8002, L509.4006, L3890.6301, L3890.6102, L501.9520, L506.0400, L3890.6006, L100.0100 ####[facility] [address] [place], [address] Lymphocytes/100 WBC (Bld) 18.2 % Low 19-41 [facility] Comment on above: Performed By: #### B TS, L509.8002, L509.4006, L3890.6301, L3890.6102, L501.9520, L506.0400, L3890.6006, L100.0100 ####[facility] [address] [place], [address] MCH (RBC) [Entitic mass] 30.5 pg Normal 27.0-32.0 [facility] Comment on above: Performed By: #### B TS, L509.8002, L509.4006, L3890.6301, L3890.6102, L501.9520, L506.0400, L3890.6006, L100.0100 ####[facility] [address] [place], [address] MCHC (RBC) [Mass/Vol] 34.9 g/dL Normal 32-36 [facility] Comment on above: Performed By: #### B TS, L509.8002, L509.4006, L3890.6301, L3890.6102, L501.9520, L506.0400, L3890.6006, L100.0100 ####[facility] [address] [place], [address] MCV (RBC) [Entitic vol] 87.3 fL Normal 81-99 [facility] Comment on above: Performed By: #### B TS, L509.8002, L509.4006, L3890.6301, L3890.6102, L501.9520, L506.0400, L3890.6006, L100.0100 ####[facility] [address] [place], [address] Monocytes/100 WBC (Bld) 5.7 % Normal 0-10 [facility] Comment on above: Performed By: #### B TS, L509.8002, L509.4006, L3890.6301, L3890.6102, L501.9520, L506.0400, L3890.6006, L100.0100 ####[facility] [address] [place], [address] Neutrophils/100 WBC (Bld) 73.4 % High 47-70 [facility] Comment on above: Performed By: #### B TS, L509.8002, L509.4006, L3890.6301, L3890.6102, L501.9520, L506.0400, L3890.6006, L100.0100 ####[facility] [address] [place], [address] Nucleated RBC (Bld) [#/Vol] 0 10*3/uL Normal 0-5 [facility] Comment on above: Performed By: #### B TS, L509.8002, L509.4006, L3890.6301, L3890.6102, L501.9520, L506.0400, L3890.6006, L100.0100 ####[facility] [address] [place], [address] Platelet mean volume (Bld) [Entitic vol] 10.7 fL Normal 6.2-12.0 [facility] Comment on above: Performed By: #### B TS, L509.8002, L509.4006, L3890.6301, L3890.6102, L501.9520, L506.0400, L3890.6006, L100.0100 ####[facility] [address] [place], [address] Platelets (Bld) [#/Vol] 245 10*3/uL Normal 150-450 [facility] Comment on above: Performed By: #### B TS, L509.8002, L509.4006, L3890.6301, L3890.6102, L501.9520, L506.0400, L3890.6006, L100.0100 ####[facility] [address] [place], [address] RBC (Bld) [#/Vol] 4.33 10*6/uL Normal 4.2-5.4 [facility] Comment on above: Performed By: #### B TS, L509.8002, L509.4006, L3890.6301, L3890.6102, L501.9520, L506.0400, L3890.6006, L100.0100 ####[facility] [address] [place], [place], [id number]72) RDW SD 43.2 fl Normal 35.1-43.9 [facility] Comment on above: Performed By: #### B TS, L509.8002, L509.4006, L3890.6301, L3890.6102, L501.9520, L506.0400, L3890.6006, L100.0100 ####[facility] [address] [place], [place], [address] WBC (Bld) [#/Vol] 8.2 10*3/uL Normal 4.4-11.0 [facility] Comment on above: Performed By: #### B TS, L509.8002, L509.4006, L3890.6301, L3890.6102, L501.9520, L506.0400, L3890.6006, L100.0100 ####[facility] [address] [place], [place], [address] Eosinophil percentageOrdered By: Rocio Persaud on 12-22-2024 Eosinophils/100 WBC (Bld) 2.0 % 0-5 [facility] Erythrocyte distribution wid th (RBC) [Ratio]Ordered By: Rocio Persaud on 12-22-2024 Erythrocyte distribution width (RBC) [Entitic vol] 43.2 fL 35.1-43.9 [facility] Erythrocyte distribution wid th ratioOrdered By: Rocio Persaud on 12-22-2024 Erythrocyte distribution width (RBC) [Ratio] 13.5 % 11.6-14.6 [facility] Erythrocyte distribution wid th standard deviationOrdered By: Rocio Persaud on 12-22-2024 Erythrocyte distribution width (RBC) [Ratio] 43.2 fl 35.1-43.9 [facility] HBV surface Ag Ql (S)Ordered By: Rocoi Motaaisha on 12-22-2024 Hepatitis B Surface Antigen Non-Reactive Nonreactive [facility] Comment on above: Reactive: Presumptiv e evidence of HBV. Repeatedly reactive samples must be confirmed using a neutralization test ([employer] HBsAg Confirmatory Test)Non-Reactive: HBsAg not detected; does not exclude the possibility of exposure to HBV HIVon 12-22-2024 HIV Non-Reactive Normal Nonreactive [facility] Comment on above: Result Comment: Non- Reactive Reactive Repeatedly reactive samples must be confirmed according to CDC recommended confirmatory algorithms. The subresults for either HIVAG or AHIV can be used as an aid in the selection of the confirmation algorithm for reactive samples. Send out specimens with Reactive results to [facility] for confirmation. Order the HIV antibody detection and differentiation: lc#[id number] Performed By: #### B TS, L509.8002, L509.4006, L3890.6301, L3890.6102, L501.9520, L506.0400, L3890.6006, L100.0100 ####[facility] [address] [place], [place], [address] Hematocrit Auto (Bld) [Volum e fraction]Ordered By: Rocio Persaud on 12-22-2024 Hematocrit (Bld) [Volume fraction] 37.8 % 37-47 [facility] Hemoglobin measurementOrdere d By: Rocio Persaud on 12-22-2024 Hemoglobin (Bld) [Mass/Vol] 13.2 g/dL 12.0-15.0 [facility] Hepatitis C Antibodyon 12-22 Hepatitis C Ab Non-Reactive Normal Nonreactive [facility] Comment on above: Result Comment: Reac tive: Presumptive evidence of antibodies to HCV. Follow CDC recommendations for supplemental testing. Non-Reactive: Antibodies to HCV were not detected; does not exclude the possibility of exposure to HCV Reactive Results are presumptive evidence of antibodies to HCV. Follow CDC recommendations for supplemental testing. Order confirmation testing: HCV Quant by PCR testing - [facility]PCR #[id number] Non Reactive: < 0.8 Equivocal: >/= 0.8 to < 1.0 Reactive: >/= 1.0 The CDC requires that a reactive/equivocal HCV antibody result be sent out for confirmation. HCV Quant by PCR testing. Performed By: #### B TS, L509.8002, L509.4006, L3890.6301, L3890.6102, L501.9520, L506.0400, L3890.6006, L100.0100 ####[facility] [address] [place], [address] Hepatitis C antibodyOrdered By: Rocio Persaud on 12-22-2024 Hepatitis C Antibody Non-Reactive Nonreactive [facility] Comment on above: Reactive: Presumptiv e evidence of antibodies to HCV. Follow CDC recommendations for supplemental testing.Non-Reactive: Antibodies to HCV were not detected; does not exclude the possibility of exposure to HCVReactive Results are presumptive evidence of antibodies to HCV. Follow CDC recommendations for supplemental testing.Order confirmation testing: HCV Quant by PCR testing - [facility]PCR #[id number] Non Reactive: < 0.8 Equivocal: >/= 0.8 to < 1.0 Reactive: >/= 1.0The CDC requires that a reactive/equivocal HCV antibody result be sent out for confirmation. HCV Quant by PCR testing. Immature granulocytes/100 WB C Auto (Bld)Ordered By: Rocio Persaud on 12-22-2024 Immature granulocytes/100 WBC (Bld) 0.500 % 0.0-0.9 [facility] Comment on above: IG% - Immature Granu locytes (promyelocytes, myelocytes and metamyelocytes) > 1% indicates that a LEFT SHIFT is Present. L3890.6102on 12-22-2024 HEP B Surf Ag Non-Reactive Normal Nonreactive [facility] Comment on above: Result Comment: Reac tive: Presumptive evidence of HBV. Repeatedly reactive samples must be confirmed using a neutralization test ([employer] HBsAg Confirmatory Test) Non-Reactive: HBsAg not detected; does not exclude the possibility of exposure to HBV Performed By: #### B TS, L509.8002, L509.4006, L3890.6301, L3890.6102, L501.9520, L506.0400, L3890.6006, L100.0100 ####[facility] [address] [place], [address] L509.4006on 12-22-2024 Rubella IgG REAC Normal Nonreactive [facility] Comment on above: Result Comment: Anti body Result: Interpretation Non-Reactive: Non-Immune Reactive: Immune The following results were obtained with the [employer] Rubella IgG assay. Results from assays of other manufacturers cannot be used interchangeably. Performed By: #### B TS, L509.8002, L509.4006, L3890.6301, L3890.6102, L501.9520, L506.0400, L3890.6006, L100.0100 ####[facility] [address] [place], [address] Laboratory - Chemistry and C hemistry - challengeOrdered By: Bambi Quiroz on 12-22-2024 Glucose Ql (U) Negative [facility] Laboratory - Microbiology an d Antimicrobial susceptibilityOrdered By: Rocio Persaud on 12-22-2024 HBV surface Ag Ql (S) Non-Reactive Nonreactive [facility] Comment on above: Reactive: Presumptiv e evidence of HBV. Repeatedly reactive samples must be confirmed using a neutralization test ([employer] HBsAg Confirmatory Test)Non-Reactive: HBsAg not detected; does not exclude the possibility of exposure to HBV Laboratory - UrinalysisOrder ed By: Bambi Quiroz on 12-22-2024 Protein Ql (U) Negative [facility] Lymphocytes Auto (Unsp spec) [#/Vol]Ordered By: Rocio Persaud on 12-22-2024 Lymphocytes (Bld) [#/Vol] 1.49 10*3/uL 0.83-4.51 [facility] Lymphocytes/100 WBC Auto (Un sp spec)Ordered By: Rocio Persaud on 12-22-2024 Lymphocytes/100 WBC (Bld) 18.2 % Low 19-41 [facility] MCV (mean corpuscular volume ) determinationOrdered By: Rocio Persaud on 12-22-2024 MCV (RBC) [Entitic vol] 87.3 fL 81-99 [facility] Mean corpuscular hemoglobin (MCH) determinationOrdered By: Rocio Persaud on 12-22-2024 MCH (RBC) [Entitic mass] 30.5 pg 27.0-32.0 [facility] Mean corpuscular hemoglobin concentration (MCHC) determinationOrdered By: Rocio Persaud on 12-22-2024 MCHC (RBC) [Mass/Vol] 34.9 g/dL 32-36 [facility] Mean platelet volume determi nationOrdered By: Rocio Persaud on 12-22-2024 Platelet mean volume (Bld) [Entitic vol] 10.7 fL 6.2-12.0 [facility] Monocyte percentageOrdered B y: Rocio Persaud on 12-22-2024 Monocytes/100 WBC (Bld) 5.7 % 0-10 [facility] Neutrophil percentageOrdered By: Rocio Persaud on 12-22-2024 Neutrophils/100 WBC (Bld) 73.4 % High 47-70 [facility] No Panel InformationOrdered By: Rocio Persaud on 12-22-2024 HIV (1&2) Antibody Non-Reactive Nonreactive [facility] Comment on above: Non-ReactiveReactive Repeatedly reactive samples must be confirmed according to CDC recommended confirmatory algorithms. The subresults for either HIVAG or AHIV can be used as an aid in the selection of the confirmation algorithm for reactive samples.Send out specimens with Reactive results to [facility] for confirmation.Order the HIV antibody detection and differentiation: #[id number] Nucleated red blood cell per centageOrdered By: Rocio Persaud on 12-22-2024 Nucleated RBC/100 WBC (Bld) [Ratio] 0 % 0-5 [facility] Behavioral Technician Office Visit Reporton 12-22-2024 Behavioral Technician Office Visit Report [facility]'[address], [address] [place] [address] OFFICE VISIT Date of Service: 12/22/24 MR#: [id number] Acct: [id number] Name: MICHELINE PERALES Rep #: [id number] : 2000 Provider: Dr. Bambi Abrams DO Age/Sex: 24/F Location[place] [facility] [place] Status: Signed Intake Vital Signs 05/13/24 08:00 11/25/24 13:44 12/22/24 10:15 Height 5 ft 1 in 5 ft 1 in 5 ft 1 in Weight: 157 lb 4 oz BMI 29.7 BP 102/69 Intake Visit Reasons: 13 wk OB Chief Complaint: 13 Week OB Plastic Printer Required: No Is patient in pain?: No [...] 1 current occupational status: unemployed current occupation: [employer] pets and animals: No history of recent travel: No sexually active: Yes Smoking Status: Never smoker second hand exposure: No alcohol intake: never substance use type: does not use diet: other well-balanced diet: daily or most days caffeine: No eating out: rarely or never during the past year weight has: remained stable what type of physical activity do you participate in: none radha/scientology: None seatbelt use: always do you feel safe at home: Yes additional social history: [employer] History 3 Elective abortions Hx [...] previous US (more content not included)... Normal [facility] Platelet countOrdered By: Cony Persaud on 12-22-2024 Platelets (Bld) [#/Vol] 245 10*3/uL 150-450 [facility] RBC Auto (Bld) [#/Vol]Ordere d By: Rocio Persaud on 12-22-2024 RBC (Bld) [#/Vol] 4.33 10*6/uL 4.2-5.4 [facility] Rubella immune status determ ination by IgG antibody assayOrdered By: Rocio Persaud on 12-22-2024 Rubella IgG Antibody REAC Nonreactive [facility] Comment on above: Antibody Result: Int erpretationNon-Reactive: Non-ImmuneReactive: ImmuneThe following results were obtained with the [employer] Rubella IgG assay. Results from assays of other manufacturers cannot be used interchangeably. Syphilis Antibodieson 2024 Syphilis Abs Non-Reactive Normal Nonreactive [facility] Comment on above: Performed By: #### B TS, L509.3312, L509.4006, L3890.6301, L3890.6102, L501.9520, L506.0400, L3890.6006, L100.0100 ####[facility] [address] [place], [place], [id number] T. pallidum abOrdered By: Cony Persaud on 12-22-2024 Syphilis Total Antibody Non-Reactive Nonreactiv e [facility] T4 Free Directon 12-22-2024 T4 FREE DIRECT 1.00 ng/dL Normal 0.76-1.46 [facility] Comment on above: Performed By: #### B TS, L509.8002, L509.4006, L3890.6301, L3890.6102, L501.9520, L506.0400, L3890.6006, L100.0100 ####[facility] [address] [place], [address] T4 freeOrdered By: Rocio herrera on 12-22-2024 Free T4 [Mass/Vol] 1.00 ng/dL 0.76-1.46 [facility] TSH DL <= 0.005 mIU/L QnOrde red By: Rocio Persaud on 12-22-2024 Thyroid Stimulating Hormone (TSH) 3.910 uIU/mL 0.300-4.200 [facility] TSH Qn 3.910 uIU/mL 0.300-4.200 [facility] Thyroid Stim Hormone (TSH)on 12-22-2024 TSH 3.910 uIU/mL Normal 0.300-4.200 [facility] Comment on above: Performed By: #### B TS, L509.8002, L509.4006, L3890.6301, L3890.6102, L501.9520, L506.0400, L3890.6006, L100.0100 ####[facility] [address] [place], [place], [id number] Type AND Screenon 12-22-2024 Ab SCREEN GEL Negative Normal [facility] Comment on above: Order Comment: PN Performed By: #### B TS, L509.8002, L509.4006, L3890.6301, L3890.6102, L501.9520, L506.0400, L3890.6006, L100.0100 ####[facility] [address] [place], [address] White blood cell (WBC) count Ordered By: Rocio Persaud on 12-22-2024 WBC (Bld) [#/Vol] 8.2 10*3/uL 4.4-11.0 [facility] PAP I-G w/rfx hrHPV-Aptimaon 11-30-2024 ADEQ Comment Normal . [facility] Comment on above: Order Comment: Speci men Comment: [id number] Comment: Source.............CervixSpecimen Comment: Other..............Specimen Comment: No. of containers..01 ThinPrep Vial Result Comment: Sati sfactory for evaluation. Endocervical and/or squamous metaplastic cells (endocervical component) are present. Performed By: #### L 7000.1800, L7400.0353, M100.2200 ####[facility] [address] [place], [address] COMM . Normal . [facility] Comment on above: Order Comment: Speci men Comment: [id number] Comment: Source.............CervixSpecimen Comment: Other..............Specimen Comment: No. of containers..01 ThinPrep Vial Performed By: #### L 7000.1800, L7400.0353, M100.2200 ####[facility] [address] [place], [address] COMMENT Comment Normal . [facility] Comment on above: Order Comment: Speci men Comment: [id number] Comment: Source.............CervixSpecimen Comment: Other..............Specimen Comment: No. of containers..01 ThinPrep Vial Result Comment: This liquid based ThinPrep(R) pap test was screened with the use of an image guided system. Performed By: #### L 7000.1800, L7400.0353, M100.2200 ####[facility] [address] [place], [address] DIAG Comment Normal . [facility] Comment on above: Order Comment: Speci men Comment: [id number] Comment: Source.............CervixSpecimen Comment: Other..............Specimen Comment: No. of containers..01 ThinPrep Vial Result Comment: NEGA TIVE FOR INTRAEPITHELIAL LESION OR MALIGNANCY. Performed By: #### L 7000.1800, L7400.0353, M100.2200 ####[facility] [address] [place], [address] HPV RFLX Comment Normal . [facility] Comment on above: Order Comment: Speci men Comment: [id number] Comment: Source.............CervixSpecimen Comment: Other..............Specimen Comment: No. of containers..01 ThinPrep Vial Result Comment: The HPV DNA reflex criteria were not met with this specimen result therefore, no HPV testing was performed. Performed at: [facility] [address] [id number] District Superintendent: Martin Meadows MD, Phone: [phone] Performed at: [address] [id number] District Superintendent: Ashley Darling MD, Phone: [phone] Performed By: #### L 7000.1800, L7400.0353, M100.2200 ####[facility] [address] [place], [place], [address] PAPSMR Comment Normal . [facility] Comment on above: Order Comment: Speci men Comment: [id number] Comment: Source.............CervixSpecimen Comment: Other..............Specimen Comment: No. of [...] Performed By: #### L 7000.1800, L7400.0353, M100.0 ####[facility] [address] [place], [place], [address] PERFORM Comment Normal . [facility] Comment on above: Order Comment: Speci men Comment: [id number] Comment: Source.............CervixSpecimen Comment: Other..............Specimen Comment: No. of containers..01 ThinPrep Vial Result Comment: Laquita Martinez, Rn Float (ASCP) Performed By: #### L 7000.1800, L7400.0353, M100.2200 ####[facility] [address] [place], [address] Chlamydia/GC KIM aptimaon CHLAMY,NUC ACID Negative Normal Negative [facility] Comment on above: Performed By: #### L 7000.1800, L7400.0353, M100.2200 ####[facility] [address] [place], [place], [address] GC BY NUC ACID Negative Normal Negative [facility] Comment on above: Result Comment: Perf ormed at: =G - [facility] [address] [place] [id number] District Superintendent: Ashley Darling MD, Phone: [phone] Performed By: #### L 7000.1800, L7400.0353, M100.2200 ####[facility] [address] [place], [address] Urine Cultureon 11-26-2024 URC Culture exhibits no growth. Normal [facility] Comment on above: Performed By: #### L 7000.1800, L7400.0353, M100.2200 ####[facility] [address] [place], [place], [address] C. trachomatis rRNA KIM+prob e Ql (Unsp spec)Ordered By: Rocio Persaud on 11-25-2024 Chlamydia DNA (KIM) Negative Negative [facility] Cervical or vagninal specime n microscopic examination by cytology stain (reported asOrdered By: Rocio Persaud on 11-25-2024 Cytology report Cyto stain Doc (Cvx/Vag) Comment . [facility] Comment on above: The Pap smear is [...] rRNA KIM+probe Ql (Unsp spec) Negative Negative [facility] Manager Sports Cyto stain Nom (C vx/Vag) [ID]Ordered By: Rocio Persaud on 11-25-2024 Pap Smear Performed By Comment . [facility] Comment on above: Luda Martinez, Rn Float (ASCP) Cytology report Cyto stain D oc (Cvx/Vag)Ordered By: Rocio Persaud on 11-25-2024 Thin Prep Pap Smear Comment . [facility] Comment on above: The Pap smear is a s creening test designed to aid in thedetection of premalignant and malignant conditions of theuterine cervix. It is not a diagnostic procedure andshould not be used as the sole means of detecting cervicalcancer. Both false-positive and false-negative reports dooccur. Image-guided ThinPrep PapOrd ered By: Rocio Persaud on 11-25-2024 Pap Smear Note Comment . [facility] Comment on above: This liquid based Th inPrep(R) pap test was screened withthe use of an image guided system. Image-guided liquid-based Pa pOrdered By: Rocio Persaud on 11-25-2024 Pap Smear Diagnosis Comment . [facility] Comment on above: NEGATIVE FOR INTRAEP ITHELIAL LESION OR MALIGNANCY. Image-guided liquid-based ce rvical Pap w high-risk HPV+reflex to HPV 16+18Ordered By: Rocio Persaud on 11-25-2024 Human Papillomavirus Screen Comment . [facility] Comment on above: The HPV DNA reflex c riteria were not met with this specimenresult therefore, no HPV testing was performed.Performed at: - [facility] [address] [id number] Director: Martin Meadows MD, Phone: [phone] at: [facility] [address] [id number] Director: Ashley Darling MD, Phone: [phone] Laboratory - CytologyOrdered By: Rocio Persaud on 11-25-2024 Manager Sports Cyto stain Nom (Cvx/Vag) [ID] Comment . [facility] Comment on above: Luda Martinez, Rn Float (ASCP) Laboratory - Miscellaneous t estsOrdered By: Rocio Persaud on 11-25-2024 Service comment (Unsp spec) [Interp] . . [facility] Neisseria gonorrhoeae nuclei c acid detection by amplified probe techniqueOrdered By: Rocio Persaud on 03-21-2025 N. gonorrhoeae DNA KIM+probe Ql (Unsp spec) Negative Negative [facility] Comment on above: Performed at: [facility] [address] [place] [id number] Director: Ashley Darling MD, Phone: [phone] No Panel InformationOrdered By: Rocio Persaud on 11-25-2024 Pap Smear Specimen Adequacy Comment . [facility] Comment on above: Satisfactory for gen luation. Endocervical and/or squamous metaplasticcells (endocervical component) are present. Behavioral Technician Office Visit Reporton 11-25-2024 Behavioral Technician Office Visit Report [facility] [address], [address] [place] [address] OFFICE VISIT Date of Service: 11/25/24 MR#: [id number] Acct: [id number] Name: MICHELINE PERALES Rep #: [id number] : 2000 Provider: Dr. Rocio hoang MD Age/Sex: 24/F Location[place] [facility] [place] Status: Signed Intake Vital Signs 05/13/24 08:00 11/25/24 13:44 Height 5 ft 1 in 5 ft 1 in Weight: 159 lb 4 oz BMI 30.0 BP 111/76 Intake Visit Reasons: New OB, unsure LMP, hx m/c Plastic Printer Required: No Is patient in pain?: No [...] 1 current occupational status: unemployed current occupation: [employer] pets and animals: No history of recent travel: No sexually active: Yes Smoking Status: Never smoker second hand exposure: No alcohol intake: never substance use type: does not use diet: other well-balanced diet: daily or most days caffeine: No eating out: rarely or never during the past year weight has: remained stable what type of physical activity do you participate in: none radha/scientology: None seatbelt use: always do you feel safe at home: Yes additional social history: [employer] History 3 Elective abortions Hx [...] 150 -???-? (more content not included)... Normal [facility] Service comment (Unsp spec) [Interp]Ordered By: Rocio Persaud on 11-25-2024 Pap Smear Comment (3) . . [facility] Urine cultureOrdered By: Rai Persaud on 11-25-2024 Bacteria identified Cx Nom (U) Culture exhibits no growth. [facility] Transvaginal w/Preg USon Transvaginal w/Preg US [facility] Services [address] [place], [place] [address] Transvaginal w/Preg US MR#: [id number] Acct: [id number] Name: MICHELINE PERALES Rep #: [id number] : 2000 F 24 From: Casper Restrepo MD PCP: LUIS F Leiva Status: REG CLI Study: Transvaginal w/Preg US Date of Exam: 11/02/24 Exam# [id number] Ordering Dr: Rocio Persaud PROCEDURE: TRANSVAGINAL W/PREG US REASON FOR EXAM: Dating. COMPARISON: None. FINDINGS The uterus measures 9.6 x 6.9 x 4.8 cm. No fibroids. A gestational sac is present which dates 6 weeks and 2 days. The yolk sac is visualized. An embryo is visualized with a heart rate of 108. Prescott-rump length measures 6 weeks and 2 days. [...] Single live intrauterine as above. Reading Location: [id number] CC: Dr. Rocio Persaud MD; LUIS F Leiva Bisque Grader: Signed Normal [facility] HCG ( test) QlOrder ed By: Rocio Persaud on 10-27-2024 Human Chorionic Gonadotropin, Quant 2617 mIU/mL High <4 [facility] Comment on above: hCG levels with Gest ational AgeGestational Age hCG mIU/mL (IU/L)0.2 - 1 week 5 - 501-2 weeks 50 - 5002-3 weeks 100 - 02596-5 weeks 500 - 454565-6 weeks 1000 - 726866-8 weeks 37208 - 100,0006-8 weeks 82634 - 200,0002-3 months 10817 - 100,000 Serum human chorionic gonado tropin detection for pregnancyOrdered By: Rocio Persaud on 10-27-2024 HCG ( test) Ql 2617 mIU/mL High <4 [facility] Comment on above: hCG levels with Gest ational AgeGestational Age hCG mIU/mL (IU/L)0.2 - 1 week 5 - 501-2 weeks 50 - 5002-3 weeks 100 - 50425-7 weeks 500 - 514936-0 weeks 1000 - 696176-7 weeks 65493 - 100,0006-8 weeks 32631 - 200,0002-3 months 76983 - 100,000 hCG Titer Quant., Serumon HCG QUANT. 2617 mIU/mL High 1-3 [facility] Comment on above: Result Comment: hCG levels with Gestational Age Gestational Age hCG mIU/mL (IU/L) 0.2 - 1 week 5 - 50 1-2 weeks 50 - 500 2-3 weeks 100 - 5000 3-4 weeks 500 - 93159 4-5 weeks 1000 - 99674 5-6 weeks 35074 - 100,000 6-8 weeks 04183 - 200,000 2-3 months 66103 - 100,000 Performed By: #### L 700.8000 ####[facility] [address], [place], [id number] T3, FREEon 02-11-2024 Free T3 [Mass/Vol] 3.4 pg/mL Normal 2.3-4.2 [facility] Comment on above: Performed By: #### 3 7477, 517, 622 #### [facility] [address] [place] [address] [employer] Salesperson: Prakash Banegas MD T4, FREEon 02-11-2024 Free T4 [Mass/Vol] 1.3 ng/dL Normal 0.8-1.8 [facility] Comment on above: Performed By: #### 3 4429, 866, 899 #### [facility] [address] [facility], [address] [place] [address] [employer] Salesperson: Prakash Banegas MD TSHon 02-11-2024 TSH Qn 2.56 m[IU]/L Normal [facility] Comment on above: Result Comment: Refe rence Range > or = 20 Years 0.40-4.50 Ranges First trimester 0.26-2.66 Second trimester 0.55-2.73 Third trimester 0.43-2.91 Performed By: #### 3 4429, 866, 899 #### [facility] [address] [facility], [address] [place], [place] [address] [employer] Salesperson: Prakash Banegas MD Laboratory - Chemistry and C hemistry - challengeon 02-10-2024 Free T3 [Mass/Vol] 3.4 pg/mL Normal 2.3 - 4.2 pg/mL [employer] Free T4 [Mass/Vol] 1.3 ng/dL Normal 0.8 - 1.8 ng/dL [employer] TSH Qn 2.56 m[IU]/L Normal [employer] Serum or plasma progesterone measurement (mass/volume)Ordered By: Bisi Miller on 10-26-2023 Progesterone [Mass/Vol] 0.35 ng/mL See Comment [facility] Comment on above: Progesterone Referen ce Table: UNITS Female: Follicular 0.15 - 1.40 ng/mL Luteal 3.34 - 25.56 ng/mL Mid-luteal 4.44 - 28.03 ng/mL Postmenopausal 0.0 - 0.73 ng/mL : 1st Trimester 11.22 - 90.00 ng/mL 2nd Trimester 25.55 - 89.40 ng/mL 3rd Trimester 48.40 -422.50 ng/mL No Panel InformationOrdered By: Bisi Miller on 10-09-2023 Follicle Stimulating Hormone 5.9 mIU/mL [facility] Comment on above: NORMAL REFERENCE RAN GES FEMALE FOLLICULAR 2.3 - 12.6 mIU/mL MID-CYCLE PEAK 5.2 - 17.5 mIU/mL LUTEAL 1.7 - 12.9 mIU/mL POST-MENOPAUSAL ON MHT 5.9 - 72.8 mIU/mL NOT ON MHT 12.7 - 132.2 mlU/mL MALE 0.7 - 10.8 mIU/mL Luteinizing Hormone 4.4 mIU/mL [facility] Comment on above: NORMAL REFERENCE RAN GES FEMALE FOLLICULAR 1.9 - 26.2 mIU/mL MID-CYCLE PEAK 22.8 - 76.1 mIU/mL LUTEAL 0.6 - 16.6 mIU/mL POST-MENOPAUSAL ON MHT 1.1 - 52.4 mIU/mL NOT ON MHT 8.6 - 61.8 mIU/mL MALE 1.2 - 10.6 mIU/mL Serum or plasma estrogen larry surement (mass/volume)Ordered By: Bisi Miller on 10-09-2023 Estrogen [Mass/Vol] 80 pg/mL . [facility] Comment on above: Prepubertal < 40 Fem rahul Cycle: 1-10 Days 16 - 328 11-20 Days 34 - 501 21-30 Days 48 - 350 Post-Menopausal 40 - 244Performed at: - [facility] [address] [id number] Director: Mekhi Armando MD, Phone: [phone] Serum or plasma progesterone measurement (mass/volume)Ordered By: Bisi Miller on 10-09-2023 Progesterone [Mass/Vol] 0.39 ng/mL See Comment [facility] Comment on above: Progesterone Referen ce Table: [...] on 10-09-2023 TSH Qn 1.97 uIU/mL 0.358-3.74 [facility] Thin prep Papanicolaou smear with manual screeningOrdered By: Fuad Howard on 10-09-2023 Thin prep Papanicolaou smear with manual screening 1.03 ng/dL 0.76-1.46 [facility] Laboratory - Chemistry and C hemistry - challengeOrdered By: Dr. Persaud on 01-01-2023 Free T4 [Mass/Vol] 0.82 ng/dL 0.76-1.46 [facility] No Panel InformationOrdered By: Dr. Persaud on 12-23-2022 Thyroid Stimulating Hormone (TSH) 5.19 uIU/mL 0.358-3.74 [facility] Serum or plasma thyroperoxid ase antibody assay (units/volume)Ordered By: Dr. Persaud on 12-23-2022 TPO Ab Qn 40 [IU]/mL 0-34 [facility] Comment on above: Performed at: [place] [id number] Director: Eleazar Gr PhD, Phone: [phone] Basophil percentageOrdered B y: Dr. Persaud on 12-08-2022 WBC (Bld) [#/Vol] 8.4 10*3/uL 4.4-11.0 [facility] Blood erythrocytes count (nu mber/volume)Ordered By: Dr. Persaud on 12-08-2022 RBC (Bld) [#/Vol] 4.65 10*6/uL 4.2-5.4 [facility] Blood hemoglobin measurement (mass/volume)Ordered By: Dr. Persaud on 12-08-2022 Hemoglobin (Bld) [Mass/Vol] 13.8 g/dL 12.0-15.0 [facility] Blood platelet mean volumeOr dered By: Dr. Persaud on 12-08-2022 Platelet mean volume (Bld) [Entitic vol] 10.1 fL 6.2-12.0 [facility] Determination of erythrocyte mean corpuscular volume (MCV)Ordered By: Dr. Persaud on 12-08-2022 MCV (RBC) [Entitic vol] 88.6 fL 81-99 [facility] Hematocrit Auto (Bld) [Volum e fraction]Ordered By: Dr. Persaud on 12-08-2022 Hematocrit (Bld) [Volume fraction] 41.2 % 37-47 [facility] Laboratory - Hematology and Cell countsOrdered By: Dr. Persaud on 12-08-2022 Erythrocyte distribution width (RBC) [Entitic vol] 43.9 fL 35.1-43.9 [facility] Erythrocyte distribution width (RBC) [Ratio] 13.5 % 11.6-14.6 [facility] MCH (RBC) [Entitic mass] 29.7 pg 27.0-32.0 [facility] MCHC Auto (RBC) [Mass/Vol]Or dered By: Dr. Persaud on 12-08-2022 MCHC (RBC) [Mass/Vol] 33.5 g/dL 32-36 [facility] Platelets bldOrdered By: Dr. Persaud on 12-08-2022 Platelets (Bld) [#/Vol] 251 10*3/uL 150-450 [facility] Laboratory - Chemistry and C hemistry - challengeon 03-26-2022 Free T4 [Mass/Vol] 0.98 ng/dL 0.76-1.46 [facility] Work Phone: No Panel Informationon 03-26 Thyroid Stimulating Hormone (TSH) 0.73 uIU/mL 0.358-3.74 [facility] Work Phone: Absolute lymphocyte counton 12-17-2021 Lymphocytes Auto (Unsp spec) [#/Vol] 2.13 10*3/uL 0.83-4.51 [facility] Work Phone: Amorphous sediment detection in urine sediment by light microscopyon 12-17-2021 Amorphous sediment LM Ql (Urine sed) 1+ [facility] Work Phone: [phone] Basophil percentageon 2021 Basophil percentage 0-5 SEEN /hpf 0-5 [facility] Work Phone: Basophils/100 WBC (Bld) 0.1 % 0-1 [facility] Work Phone: C. trachomatis DNA KIM+probe Ql (Unsp spec) Negative Negative [facility] Work Phone: Eosinophils/100 WBC (Bld) 0.4 % 0-5 [facility] Work Phone: Neutrophils (Bld) [#/Vol] 9.7 10*3/uL 2.0-7.7 [facility] Work Phone: Neutrophils/100 WBC (Bld) 76.8 % 47-70 [facility] Work Phone: WBC (Bld) [#/Vol] 12.6 10*3/uL 4.4-11.0 [facility] Work Phone: Bilirubin Test strip Ql (U)o n 12-17-2021 Bilirubin Ql (U) Negative Negative [facility] Work Phone: Blood erythrocytes count (nu mber/volume)on 12-17-2021 RBC (Bld) [#/Vol] 4.11 10*6/uL 4.2-5.4 [facility] Work Phone: Blood hemoglobin measurement (mass/volume)on 12-17-2021 Hemoglobin (Bld) [Mass/Vol] 12.4 g/dL 12.0-15.0 [facility] Work Phone: Blood lymphocytes/100 leukoc yteson 12-17-2021 Lymphocytes/100 WBC (Bld) 16.9 % 19-41 [facility] Work Phone: Blood monocytes/100 leukocyt eson 12-17-2021 Monocytes/100 WBC (Bld) 5.2 % 0-10 [facility] Work Phone: Blood platelet mean volumeon 12-17-2021 Platelet mean volume (Bld) [Entitic vol] 11.4 fL 6.2-12.0 [facility] Work Phone: Determination of erythrocyte mean corpuscular volume (MCV)on 12-17-2021 MCV (RBC) [Entitic vol] 88.8 fL 81-99 [facility] Work Phone: HIV 1 and HIV-2 antibody ass ay with HIV-1 p24 antigen detectionon 12-17-2021 HIV 1+2 Ab+HIV1 p24 Ag IA Ql Non-Reactive Nonreactive [facility] Work Phone: [phone] Hematocrit Auto (Bld) [Volum e fraction]on 12-17-2021 Hematocrit (Bld) [Volume fraction] 36.5 % 37-47 [facility] Work Phone: [phone] Ketones Test strip Ql (U)on 12-17-2021 Ketones Ql (U) Negative Negative [facility] Work Phone: [phone] Laboratory - Drug toxicology on 12-17-2021 Benzodiazepines Ql (U) Negative < 200 ng/mL [facility] Work Phone: [phone] Cannabinoids Screen Ql (U) Negative < 50 ng/mL [facility] Work Phone: [phone] Cocaine Ql (U) Negative < 300 ng/mL [facility] Work Phone: [phone] Opiates Ql (U) Negative < 300 ng/mL [facility] Work Phone: [phone] Laboratory - Hematology and Cell countson 12-17-2021 Erythrocyte distribution width (RBC) [Entitic vol] 45.0 fL 35.1-43.9 [facility] Work Phone: [phone] Erythrocyte distribution width (RBC) [Ratio] 13.8 % 11.6-14.6 [facility] Work Phone: [phone] Immature granulocytes/100 WBC (Bld) 0.600 % 0.0-0.9 [facility] Work Phone: [phone] Comment on above: IG% - Immature Granu locytes (promyelocytes, myelocytes and metamyelocytes) > 1% indicates that a LEFT SHIFT is Present. MCH (RBC) [Entitic mass] 30.2 pg 27.0-32.0 [facility] Work Phone: [phone] Nucleated RBC/100 WBC (Bld) [Ratio] 0 % 0-5 [facility] Work Phone: [phone] MCHC Auto (RBC) [Mass/Vol]on 12-17-2021 MCHC (RBC) [Mass/Vol] 34.0 g/dL 32-36 [facility] Work Phone: [phone] Mucus LM Ql (Urine sed)on Mucus Ql (Urine sed) 0 SEEN /hpf [facility] Work Phone: [phone] Neisseria gonorrhoeae detect ion by PCRon 12-17-2021 N. gonorrhoeae DNA KIM+probe Ql (Cervical mucus) Negative Negative [facility] Work Phone: [phone] Nitrite Test strip Ql (U)on 12-17-2021 Nitrite Ql (U) Negative Negative [facility] Work Phone: [phone] No Panel Informationon 12-17 Hepatitis B Surface Antigen Non-Reactive Nonreactive [facility] Work Phone: [phone] Hepatitis C Antibody Non-Reactive Nonreactive [facility] Work Phone: [phone] Comment on above: Non Reactive: < 0.8 Equivocal: >/= 0.8 to < 1.0 Reactive: >/= 1.0The [facility] recommends that a reactive/equivocal HCV antibody result be followed up by the HCV Nucleic Acid Amplificationtest (842438) MDMA (Ecstasy) Screen Negative < 500 ng/mL [facility] Work Phone: [phone] Urine Barbiturates Screen Negative < 200 ng/mL [facility] Work Phone: [phone] Urine Drug Screen Comment [facility] Work Phone: [phone] Comment on above: CONFIRMATORY TESTING FOR ALL [...] Urine Methadone Screen Negative < 300 ng/mL [facility] Work Phone: [phone] Urine Transitional Epithelial Cells 0-5 SEEN /hpf 0-5 [facility] Work Phone: Platelets bldon 12-17-2021 Platelets (Bld) [#/Vol] 237 10*3/uL 150-450 [facility] Work Phone: Protein Test strip Ql (U)on 12-17-2021 Protein Ql (U) Negative Negative [facility] Work Phone: Serum Treponema species anti body detectionon 12-17-2021 Treponema sp Ab Ql (S) Non-Reactive [facility] Work Phone: Squamous epithelial cells de tection in urine sediment by light microscopyon 12-17-2021 Epithelial cells.squamous LM Ql (Urine sed) 0-5 SEEN /hpf 5-10 [facility] Work Phone: Urine amphetamine measuremen t (moles/volume)on 12-17-2021 Amphetamine (U) [Moles/Vol] Negative <1000 ng/mL [facility] Work Phone: Urine blood detectionon 12-06 RBC Ql (U) Negative Negative [facility] Work Phone: RBC Ql (U) 0 SEEN /hpf 0-5 [facility] Work Phone: Urine clarityon 12-17-2021 Clarity (U) Clear Clear [facility] Work Phone: Urine color determinationon 12-17-2021 Color (U) Yellow Yellow [facility] Work Phone: Urine glucose detectionon Glucose Ql (U) Normal mg/dl Normal [facility] Work Phone: Urine leukocyte esterase det ection by dipstickon 12-17-2021 Leukocyte esterase Test strip Ql (U) Negative Negative [facility] Work Phone: Urine pHon 12-17-2021 pH (U) 8.0 [pH] 5.0 - 8.0 [facility] Work Phone: Urine phencyclidine (PCP) de tectionon 12-17-2021 Phencyclidine Ql (U) Negative < 25 ng/mL [facility] Work Phone: Urine sediment bacteria coun t by microscopy (number/high power field)on 12-17-2021 Bacteria LM.HPF (Urine sed) [#/Area] 0 /[HPF] None Seen [facility] Work Phone: Urine specific gravity measu rementon 12-17-2021 Specific gravity (U) [Rel density] 1.015 1.002-1.030 [facility] Work Phone: Urobilinogen Auto test strip Ql (U)on 12-17-2021 Urobilinogen Ql (U) Normal mg/dl Normal [facility] Work Phone: Laboratory - Chemistry and C hemistry - challengeon 12-13-2021 Glucose Ql (U) Negative [facility] Work Phone: Laboratory - Urinalysison Protein Ql (U) Negative [facility] Work Phone: Laboratory - Chemistry and C hemistry - challengeon 12-06-2021 Glucose Ql (U) Negative [facility] Work Phone: Laboratory - Urinalysison Protein Ql (U) Negative [facility] Work Phone: Laboratory - Chemistry and C hemistry - challengeon 11-29-2021 Glucose Ql (U) Negative [facility] Work Phone: Laboratory - Urinalysison Protein Ql (U) Negative [facility] Work Phone: No Panel Informationon 11-29 Group B Streptococcus Culture Group B Beta Streptococcus is not isolated. [facility] Work Phone: Laboratory - Chemistry and C hemistry - challengeon 11-15-2021 Glucose Ql (U) Negative [facility] Work Phone: Laboratory - Urinalysison Protein Ql (U) Negative [facility] Work Phone: Laboratory - Chemistry and C hemistry - challengeon 11-01-2021 Free T4 [Mass/Vol] 1.39 ng/dL 0.76-1.46 [facility] Work Phone: Glucose Ql (U) Negative [facility] Work Phone: Laboratory - Urinalysison Protein Ql (U) Negative [facility] Work Phone: No Panel Informationon 11-01 Thyroid Stimulating Hormone (TSH) < 0.01 uIU/mL 0.358-3.74 [facility] Work Phone: Laboratory - Chemistry and C hemistry - challengeon 10-18-2021 Glucose Ql (U) Negative [facility] Work Phone: [phone] Laboratory - Urinalysison Protein Ql (U) Negative [facility] Work Phone: Absolute lymphocyte counton 10-02-2021 Lymphocytes Auto (Unsp spec) [#/Vol] 2.05 10*3/uL 0.83-4.51 [facility] Work Phone: Basophil percentageon 2021 Basophils/100 WBC (Bld) 0.3 % 0-1 [facility] Work Phone: Eosinophils/100 WBC (Bld) 1.3 % 0-5 [facility] Work Phone: Neutrophils (Bld) [#/Vol] 8.1 10*3/uL 2.0-7.7 [facility] Work Phone: Neutrophils/100 WBC (Bld) 72.8 % 47-70 [facility] Work Phone: WBC (Bld) [#/Vol] 11.1 10*3/uL 4.4-11.0 [facility] Work Phone: Blood erythrocytes count (nu mber/volume)on 10-02-2021 RBC (Bld) [#/Vol] 3.97 10*6/uL 4.2-5.4 [facility] Work Phone: Blood hemoglobin measurement (mass/volume)on 10-02-2021 Hemoglobin (Bld) [Mass/Vol] 12.3 g/dL 12.0-15.0 [facility] Work Phone: Blood lymphocytes/100 leukoc yteson 10-02-2021 Lymphocytes/100 WBC (Bld) 18.5 % 19-41 [facility] Work Phone: [phone] Blood monocytes/100 leukocyt eson 10-02-2021 Monocytes/100 WBC (Bld) 6.6 % 0-10 [facility] Work Phone: Blood platelet mean volumeon 10-02-2021 Platelet mean volume (Bld) [Entitic vol] 10.0 fL 6.2-12.0 [facility] Work Phone: [phone] Determination of erythrocyte mean corpuscular volume (MCV)on 10-02-2021 MCV (RBC) [Entitic vol] 89.9 fL 81-99 [facility] Work Phone: [phone] Gestational diabetes screen 1-hour screen with 50g oral glucose loadon 10-02-2021 Glucose 1 Hr post 50 g glucose PO [Mass/Vol] 107 mg/dL 70-140 [facility] Work Phone: [phone] Hematocrit Auto (Bld) [Volum e fraction]on 10-02-2021 Hematocrit (Bld) [Volume fraction] 35.7 % 37-47 [facility] Work Phone: [phone] Laboratory - Chemistry and C hemistry - challengeon 10-02-2021 Glucose Ql (U) Negative [facility] Work Phone: [phone] Free T4 [Mass/Vol] 1.20 ng/dL 0.76-1.46 [facility] Work Phone: [phone] Laboratory - Hematology and Cell countson 10-02-2021 Erythrocyte distribution width (RBC) [Entitic vol] 44.7 fL 35.1-43.9 [facility] Work Phone: [phone] Erythrocyte distribution width (RBC) [Ratio] 13.6 % 11.6-14.6 [facility] Work Phone: Immature granulocytes/100 WBC (Bld) 0.500 % 0.0-0.9 [facility] Work Phone: Comment on above: IG% - Immature Granu locytes (promyelocytes, myelocytes and metamyelocytes) > 1% indicates that a LEFT SHIFT is Present. MCH (RBC) [Entitic mass] 31.0 pg 27.0-32.0 [facility] Work Phone: Nucleated RBC/100 WBC (Bld) [Ratio] 0 % 0-5 [facility] Work Phone: Laboratory - Urinalysison Protein Ql (U) Negative [facility] Work Phone: MCHC Auto (RBC) [Mass/Vol]on 10-02-2021 MCHC (RBC) [Mass/Vol] 34.5 g/dL 32-36 [facility] Work Phone: No Panel Informationon 10-02 Thyroid Stimulating Hormone (TSH) 0.08 uIU/mL 0.358-3.74 [facility] Work Phone: Platelets bldon 10-02-2021 Platelets (Bld) [#/Vol] 208 10*3/uL 150-450 [facility] Work Phone: Laboratory - Chemistry and C hemistry - challengeon 09-03-2021 Glucose Ql (U) Negative [facility] Work Phone: [phone] Laboratory - Urinalysison Protein Ql (U) Negative [facility] Work Phone: [phone] Laboratory - Chemistry and C hemistry - challengeon 08-09-2021 Free T4 [Mass/Vol] 1.06 ng/dL 0.76-1.46 [facility] Work Phone: Glucose Ql (U) Negative [facility] Work Phone: [phone] Laboratory - Urinalysison Protein Ql (U) Negative [facility] Work Phone: No Panel Informationon 08-09 Thyroid Stimulating Hormone (TSH) 1.26 uIU/mL 0.358-3.74 [facility] Work Phone: Gram stain for investigation of transfusion reaction Microscopic observation Gram stain Nom (Unsp spec) [facility] Work Phone: No Panel Information Group B Streptococcus Culture Group B Beta Streptococcus is not isolated. [facility] Work Phone: Thin prep Papanicolaou smear with manual screening Genital Culture GPC Poss Enterococcu s sp [facility] Work Phone: Vital Signs Date Time Vital Sign Value Performing Clinician Anuj radford 06-14-2025 11:43-0400 Body height 154.94 cm LuThe Pyromaniac PA Work Phone: [facility] 06-14-2025 11:40-0400 Body mass index (BMI) [Ratio] 35.9 kg/m2 LuIndustrious Kidler PA Work Phone: [facility] 06-14-2025 11:40-0400 Body weight 86.38 kg LuAcceleforceMildred PA Work Phone: [facility] 06-14-2025 11:40-0400 Diastolic blood pressure 68 mm[Hg] Luke Mildred PA Work Phone: [facility] 06-14-2025 11:40-0400 Systolic blood pressure 105 mm[Hg] Luke Mildred PA Work Phone: [facility] 06-05-2025 08:46-0400 Body height 154.94 cm LuIndustrious Kidler PA Work Phone: [facility] 06-05-2025 08:45-0400 Body mass index (BMI) [Ratio] 35.6 kg/m2 Luke Mildred PA Work Phone: [facility] 06-05-2025 08:45-0400 Body weight 85.72 kg Luke Mildred PA Work Phone: [facility] 06-05-2025 08:45-0400 Diastolic blood pressure 73 mm[Hg] Luke Mildred PA Work Phone: [facility] 06-05-2025 08:45-0400 Systolic blood pressure 106 mm[Hg] Luke Mildred PA Work Phone: [facility] 05-31-2025 09:25-0400 Body mass index (BMI) [Ratio] 35.5 kg/m2 Luke Mildred PA Work Phone: [facility] 05-31-2025 09:25-0400 Body weight 85.36 kg Luke Mildred PA Work Phone: [facility] 05-31-2025 09:25-0400 Diastolic blood pressure 77 mm[Hg] Luke Mildred PA Work Phone: [facility] 05-31-2025 09:25-0400 Systolic blood pressure 130 mm[Hg] Luke Mildred PA Work Phone: [facility] 05-18-2025 09:56-0400 Body height 154.94 cm Luke Mildred PA Work Phone: [facility] 05-18-2025 09:52-0400 Body mass index (BMI) [Ratio] 34.9 kg/m2 Luke Mildred PA Work Phone: [facility] 05-18-2025 09:52-0400 Body weight 83.94 kg Luke Mildred PA Work Phone: [facility] 05-18-2025 09:52-0400 Diastolic blood pressure 67 mm[Hg] Luke Mildred PA Work Phone: [facility] 05-18-2025 09:52-0400 Systolic blood pressure 106 mm[Hg] Luke Mildred PA Work Phone: [facility] 05-01-2025 14:02-0400 Body height 154.94 cm Luke Mildred PA Work Phone: [facility] 04-20-2025 13:17-0400 Body mass index (BMI) [Ratio] 34.1 kg/m2 Luke Mildred PA Work Phone: [facility] 04-20-2025 13:17-0400 Body weight 81.9 kg Luke Mildred PA Work Phone: [facility] 04-20-2025 13:17-0400 Diastolic blood pressure 78 mm[Hg] Luke Mildred PA Work Phone: [facility] 04-20-2025 13:17-0400 Systolic blood pressure 116 mm[Hg] Luke Mildred PA Work Phone: [facility] 04-20-2025 09:21-0400 Body height 154.94 cm Luke Mildred PA Work Phone: [facility] 04-20-2025 09:19-0400 Body mass index (BMI) [Ratio] 33.4 kg/m2 Luke Mildred PA Work Phone: [facility] 04-20-2025 09:19-0400 Body weight 80.31 kg Luke Mildred PA Work Phone: [facility] 04-20-2025 09:19-0400 Diastolic blood pressure 65 mm[Hg] Luke Mildred PA Work Phone: [facility] 04-20-2025 09:19-0400 Systolic blood pressure 100 mm[Hg] Luke Mildred PA Work Phone: [facility] 04-05-2025 10:02-0400 Body height 154.94 cm Luke Mildred PA Work Phone: [facility] 04-05-2025 09:58-0400 Body mass index (BMI) [Ratio] 32.9 kg/m2 Luke Mildred PA Work Phone: [facility] 04-05-2025 09:58-0400 Body weight 79.03 kg Luke Mildred PA Work Phone: [facility] 04-05-2025 09:58-0400 Diastolic blood pressure 70 mm[Hg] Luke Mildred PA Work Phone: [facility] 04-05-2025 09:58-0400 Systolic blood pressure 104 mm[Hg] Luke Mildred PA Work Phone: [facility] 03-13-2025 13:20-0400 Body height 154.94 cm Luke Mildred PA Work Phone: [facility] 03-13-2025 13:20-0400 Body mass index (BMI) [Ratio] 32.3 kg/m2 Luke Mildred PA Work Phone: [facility] 03-13-2025 13:20-0400 Body weight 77.67 kg Luke Mildred PA Work Phone: [facility] 03-13-2025 13:20-0400 Diastolic blood pressure 71 mm[Hg] Luke Mildred PA Work Phone: [facility] 03-13-2025 13:20-0400 Systolic blood pressure 107 mm[Hg] Luke Mildred PA Work Phone: [facility] 02-16-2025 09:48-0400 Body height 154.94 cm Luke Mildred PA Work Phone: [facility] 02-16-2025 09:48-0400 Body mass index (BMI) [Ratio] 31.2 kg/m2 Luke Mildred PA Work Phone: [facility] 02-16-2025 09:48-0400 Body weight 74.95 kg Luke Mildred PA Work Phone: [facility] 02-16-2025 09:48-0400 Diastolic blood pressure 64 mm[Hg] Luke Mildred PA Work Phone: [facility] 02-16-2025 09:48-0400 Systolic blood pressure 114 mm[Hg] Luke Mildred PA Work Phone: [facility] 01-18-2025 13:04-0400 Body height 154.94 cm Luke Mildred PA Work Phone: [facility] 01-18-2025 13:04-0400 Body mass index (BMI) [Ratio] 30.2 kg/m2 Luke Mildred PA Work Phone: [facility] 01-18-2025 13:04-0400 Body weight 72.74 kg Luke Mildred PA Work Phone: [facility] 01-18-2025 13:04-0400 Diastolic blood pressure 60 mm[Hg] Luke Mildred PA Work Phone: [facility] 01-18-2025 13:04-0400 Systolic blood pressure 110 mm[Hg] Luke Mildred PA Work Phone: [facility] 12-22-2024 10:15-0400 Body height 154.94 cm Luke Mildred PA Work Phone: [facility] 12-22-2024 10:15-0400 Body mass index (BMI) [Ratio] 29.7 kg/m2 Luke Mildred PA Work Phone: [facility] 12-22-2024 10:15-0400 Body weight 71.32 kg Luke Mildred PA Work Phone: [facility] 12-22-2024 10:15-0400 Diastolic blood pressure 69 mm[Hg] Luke Mildred PA Work Phone: [facility] 12-22-2024 10:15-0400 Systolic blood pressure 102 mm[Hg] Luke Mildred PA Work Phone: [facility] 11-25-2024 13:44-0400 Body height 154.94 cm Luke Mildred PA Work Phone: [facility] 11-25-2024 13:44-0400 Body mass index (BMI) [Ratio] 30 kg/m2 Abdirizak RobertsMildred PA Work Phone: [facility] 11-25-2024 13:44-0400 Body weight 72.23 kg Luazalea RobertsMildred PA Work Phone: [facility] 11-25-2024 13:44-0400 Diastolic blood pressure 76 mm[Hg] Luke Mildred PA Work Phone: [facility] 11-25-2024 13:44-0400 Systolic blood pressure 111 mm[Hg] Abdirizak RobertsMildred PA Work Phone: [facility] 02-10-2024 08:04-0400 Body height 156.21 cm Shira Patel MA [facility], [facility].; [facility], [facility]. 02-10-2024 08:04-0400 Body mass index (BMI) [Ratio] 30.49 kg/m2 Shira Patel MA [facility], [facility].; [facility], [facility]. 02-10-2024 08:04-0400 Body surface area Derived from formula 1.75 m2 Shira Patel MA [facility], [facility].; [facility], [facility]. 02-10-2024 08:04-0400 Body weight 74.39 kg Shira Patel MA [facility], [facility].; [facility], [facility]. 02-10-2024 08:04-0400 Diastolic blood pressure 74 mm[Hg] Shira Patel MA [facility], [facility].; [facility], [facility]. Comment on above: Patient Position: Sitting; Cuff Location : Left Arm; Cuff Size: Standard 02-10-2024 08:04-0400 Heart rate 74 /min Shira Patel MA [facility], [facility].; [place] [email or web address] [facility] [place], [facility]. Comment on above: Pattern: Regular 02-10-2024 08:04-0400 Systolic blood pressure 111 mm[Hg] Shira Patel MA [facility], [facility].; [place] [email or web address] [facility] [place], [facility]. Comment on above: Patient Position: Sitting; Cuff Location : Left Arm; Cuff Size: Standard 10-09-2023 09:11-0500 Body height 154.94 cm PA Luke Mildred Work Phone: [facility] 10-09-2023 09:05-0500 Body mass index (BMI) [Ratio] 31.2 kg/m2 PA Luke Mildred Work Phone: [facility] 10-09-2023 09:05-0500 Body weight 75.06 kg PA Luke Mildred Work Phone: [facility] 10-09-2023 09:05-0500 Diastolic blood pressure 62 mm[Hg] PA Luke Mildred Work Phone: [facility] 10-09-2023 09:05-0500 Systolic blood pressure 104 mm[Hg] PA Luke Mildred Work Phone: [facility] 07-13-2023 08:50-0500 Body height 156.21 cm Luke E Mildred PA-C Work Phone: [facility] [employer] [facility] 07-13-2023 08:50-0500 Body mass index (BMI) [Ratio] 30.86 kg/m2 Luke E Mildred PA-C Work Phone: [employer] [place] [employer] [facility]. 07-13-2023 08:50-0500 Body surface area Derived from formula 1.76 m2 Luke E Mildred PA-C Work Phone: [employer] [facility]. 07-13-2023 08:50-0500 Body weight 75.3 kg Luke E Mildred PA-C Work Phone: [employer] 07-13-2023 08:50-0500 Diastolic blood pressure 72 mm[Hg] Luke E Mildred PA-C Work Phone: [employer]. Comment on above: Patient Position: Sitting; Cuff Location : Left Arm; Cuff Size: Standard 11-06-2023 08:50-0500 Heart rate 84 /min Abdirizak Levy PA-C Work Phone: [facility]. Comment on above: Pattern: Regular 07-13-2023 08:50-0500 Systolic blood pressure 109 mm[Hg] Abdirizak Levy PA-C Work Phone: [facility] Comment on above: Patient Position: Sitting; Cuff Location : Left Arm; Cuff Size: Standard 12-23-2022 11:09-0400 Body height 154.[address] Venkat Jain Work Phone: [facility] 12-23-2022 11:09-0400 Body mass index (BMI) [Ratio] 31.4 kg/m2 Dr. Venkat Jain Work Phone: [facility] 12-23-2022 11:09-0400 Diastolic blood pressure 77 mm[Hg] Dr. Venkat Jain Work Phone: [facility] 12-23-2022 11:09-0400 Systolic blood pressure 117 mm[Hg] Dr. Venkat Jain Work Phone: [facility] 12-23-2022 11:06-0400 Body weight 75.[address] Venkat Jain Work Phone: [facility] 12-08-2022 14:40-0400 Diastolic blood pressure 60 mm[Hg] Dr. Venkat Jain Work Phone: [facility] 12-08-2022 14:40-0400 Heart rate 72 /min Dr. Venkat Jain Work Phone: [facility] 12-08-2022 14:40-0400 Respiratory rate 18 /min Dr. Venkat Jain Work Phone: [facility] 12-08-2022 14:40-0400 SaO2% (BldA) [Mass fraction] 99 % Dr. Venkat Jain Work Phone: [facility] 12-08-2022 14:40-0400 Systolic blood pressure 110 mm[Hg] Dr. Venkat Jain Work Phone: [facility] 12-08-2022 13:20-0400 Body temperature 97.4 [degF] Dr. Venkat Jain Work Phone: [facility] 12-08-2022 12:05-0400 Body mass index (BMI) [Ratio] 31.1 kg/m2 Dr. Venkat Jain Work Phone: [facility] 12-08-2022 12:05-0400 Body weight 74.[address] Venkat Jain Work Phone: [facility] 12-04-2022 11:14-0400 Body mass index (BMI) [Ratio] 31.2 kg/m2 Dr. Venkat Jain Work Phone: [phone] [place] [address] 12-04-2022 11:14-0400 Body weight 76.[address] Venkat Jain Work Phone: [phone] [place] [address] 12-04-2022 11:14-0400 Diastolic blood pressure 75 mm[Hg] Dr. Venkat Jain Work Phone: [facility] [facility] 12-04-2022 11:14-0400 Systolic blood pressure 126 mm[Hg] Dr. Venkat Jain Work Phone: [phone] [place] [address] 03-26-2022 11:10-0400 Body height 156.[address] Ryley Beck Work Phone: [facility] Work Phone: 03-26-2022 11:09-0400 Body mass index (BMI) [Ratio] 31.5 kg/m2 Dr. Ryley Beck Work Phone: [facility] Work Phone: 03-26-2022 11:09-0400 Body weight 75.[address] Ryley Beck Work Phone: [facility] Work Phone: 03-26-2022 11:09-0400 Diastolic blood pressure 80 mm[Hg] Dr. Ryley Beck Work Phone: [facility] Work Phone: 03-26-2022 11:09-0400 Systolic blood pressure 112 mm[Hg] Dr. Ryley Beck Work Phone: [facility] Work Phone: 01-31-2022 15:36-0400 Body height 156.[address] Ryley Beck Work Phone: [facility] Work Phone: 01-31-2022 15:36-0400 Diastolic blood pressure 82 mm[Hg] Dr. Ryley Beck Work Phone: [facility] Work Phone: 01-31-2022 15:36-0400 Systolic blood pressure 116 mm[Hg] Dr. Ryley Beck Work Phone: [facility] Work Phone: 12-19-2021 13:45-0400 Body temperature 97.4 [degF] Dr. Ryley Beck Work Phone: [facility] Work Phone: 12-19-2021 13:45-0400 Diastolic blood pressure 75 mm[Hg] Dr. Ryley Beck Work Phone: [facility] Work Phone: 12-19-2021 13:45-0400 Heart rate 80 /min Dr. Ryley Beck Work Phone: [facility] Work Phone: 12-19-2021 13:45-0400 Respiratory rate 16 /min Dr. Ryley Beck Work Phone: [facility] Work Phone: 12-19-2021 13:45-0400 Systolic blood pressure 99 mm[Hg] Dr. Ryley Beck Work Phone: [facility] Work Phone: 12-18-2021 15:44-0400 SaO2% (BldA) [Mass fraction] 98 % Dr. Ryley Beck Work Phone: [facility] Work Phone: 12-17-2021 12:26-0400 Body height 156.[address] Ryley Beck Work Phone: [facility] Work Phone: 12-17-2021 12:26-0400 Body mass index (BMI) [Ratio] 34 kg/m2 Dr. yRley Beck Work Phone: [facility] Work Phone: 12-17-2021 12:26-0400 Body weight 83.[address] Ryley Beck Work Phone: [facility] Work Phone: 12-13-2021 10:03-0400 Body mass index (BMI) [Ratio] 34.2 kg/m2 Dr. Ryley Beck Work Phone: [facility] Work Phone: 12-13-2021 10:03-0400 Body weight 83.[address] Ryley Beck Work Phone: [facility] Work Phone: 12-13-2021 10:03-0400 Diastolic blood pressure 70 mm[Hg] Dr. Ryley Beck Work Phone: [facility] Work Phone: 12-13-2021 10:03-0400 Systolic blood pressure 110 mm[Hg] Dr. Ryley Beck Work Phone: [facility] Work Phone: 12-13-2021 10:03-0400 Body mass index (BMI) [Ratio] 34.2 kg/m2 Dr. Ryley Beck Work Phone: [facility] Work Phone: 12-13-2021 10:03-0400 Body weight 83.[address] Ryley Beck Work Phone: [facility] Work Phone: 12-13-2021 10:03-0400 Diastolic blood pressure 70 mm[Hg] Dr. Ryley Beck Work Phone: [facility] Work Phone: 12-13-2021 10:03-0400 Systolic blood pressure 110 mm[Hg] Dr. Ryley Beck Work Phone: [facility] Work Phone: 12-06-2021 09:48-0400 Body mass index (BMI) [Ratio] 33.8 kg/m2 Dr. Ryley Beck Work Phone: [facility] Work Phone: 12-06-2021 09:48-0400 Body weight 82.[address] Ryley Beck Work Phone: [facility] Work Phone: 12-06-2021 09:48-0400 Diastolic blood pressure 80 mm[Hg] Dr. Ryley Beck Work Phone: [facility] Work Phone: 12-06-2021 09:48-0400 Systolic blood pressure 118 mm[Hg] Dr. Ryley Beck Work Phone: [facility] Work Phone: 12-06-2021 09:48-0400 Body mass index (BMI) [Ratio] 33.8 kg/m2 Dr. Ryley Beck Work Phone: [facility] Work Phone: 12-06-2021 09:48-0400 Body weight 82.[address] Ryley Beck Work Phone: [facility] Work Phone: 12-06-2021 09:48-0400 Diastolic blood pressure 80 mm[Hg] Dr. Ryley Beck Work Phone: [facility] Work Phone: 12-06-2021 09:48-0400 Systolic blood pressure 118 mm[Hg] Dr. Ryley Beck Work Phone: [facility] Work Phone: 11-29-2021 09:30-0400 Body mass index (BMI) [Ratio] 33.6 kg/m2 Dr. Ryley Beck Work Phone: [facility] Work Phone: 11-29-2021 09:30-0400 Body weight 82.[address] Ryley Beck Work Phone: [facility] Work Phone: 11-29-2021 09:30-0400 Diastolic blood pressure 78 mm[Hg] Dr. Ryley Beck Work Phone: [facility] Work Phone: 11-29-2021 09:30-0400 Systolic blood pressure 120 mm[Hg] Dr. Ryley Beck Work Phone: [facility] Work Phone: 11-29-2021 09:30-0400 Body height 156.[address] Ryley Beck Work Phone: [facility] Work Phone: 11-29-2021 09:30-0400 Body mass index (BMI) [Ratio] 33.6 kg/m2 Dr. Ryley Beck Work Phone: [facility] Work Phone: 11-29-2021 09:30-0400 Body weight 82.[address] Ryley Beck Work Phone: [facility] Work Phone: 11-29-2021 09:30-0400 Diastolic blood pressure 78 mm[Hg] Dr. Ryley Beck Work Phone: [facility] Work Phone: 11-29-2021 09:30-0400 Systolic blood pressure 120 mm[Hg] Dr. Ryley Beck Work Phone: [facility] Work Phone: 11-15-2021 09:44-0500 Body mass index (BMI) [Ratio] 32.8 kg/m2 Dr. Ryley Beck Work Phone: [facility] Work Phone: 11-15-2021 09:44-0500 Body weight [address] Ryley Beck Work Phone: [facility] Work Phone: 11-15-2021 08:44-0500 Body mass index (BMI) [Ratio] 32.8 kg/m2 Dr. Ryley Beck Work Phone: [facility] Work Phone: 11-15-2021 08:44-0500 Body weight [address] Ryley Beck Work Phone: [facility] Work Phone: 11-01-2021 08:20-0500 Body mass index (BMI) [Ratio] 32.5 kg/m2 Dr. Ryley Beck Work Phone: [facility] Work Phone: 11-01-2021 08:20-0500 Body weight 79.[address] Ryley Beck Work Phone: [facility] Work Phone: 11-01-2021 08:20-0500 Diastolic blood pressure 76 mm[Hg] Dr. Ryley Beck Work Phone: [facility] Work Phone: 11-01-2021 08:20-0500 Systolic blood pressure 120 mm[Hg] Dr. Ryley Beck Work Phone: [facility] Work Phone: 10-18-2021 08:44-0500 Body mass index (BMI) [Ratio] 32.3 kg/m2 Dr. Ryley Beck Work Phone: [facility] Work Phone: 10-18-2021 08:44-0500 Body weight 78.[address] Ryley Beck Work Phone: [facility] Work Phone: 10-18-2021 08:44-0500 Diastolic blood pressure 70 mm[Hg] Dr. Ryley Beck Work Phone: [facility] Work Phone: 10-18-2021 08:44-0500 Systolic blood pressure 110 mm[Hg] Dr. Ryley Beck Work Phone: [facility] Work Phone: 10-02-2021 07:57-0500 Body mass index (BMI) [Ratio] 31.8 kg/m2 Dr. Ryley Beck Work Phone: [facility] Work Phone: 10-02-2021 07:57-0500 Body weight 77.[address] Ryley Beck Work Phone: [facility] Work Phone: 10-02-2021 07:57-0500 Diastolic blood pressure 64 mm[Hg] Dr. Ryley Beck Work Phone: [facility] Work Phone: 10-02-2021 07:57-0500 Systolic blood pressure 116 mm[Hg] Dr. Ryley Beck Work Phone: [facility] Work Phone: 09-03-2021 14:13-0500 Body mass index (BMI) [Ratio] 30.8 kg/m2 Dr. Ryley Beck Work Phone: [facility] Work Phone: 09-03-2021 14:13-0500 Body weight 75.[address] Ryley Beck Work Phone: [facility] Work Phone: 09-03-2021 14:13-0500 Diastolic blood pressure 70 mm[Hg] Dr. Ryley Beck Work Phone: [facility] Work Phone: 09-03-2021 14:13-0500 Systolic blood pressure 116 mm[Hg] Dr. Ryley Beck Work Phone: [facility] Work Phone: 08-09-2021 08:12-0500 Body mass index (BMI) [Ratio] 30.1 kg/m2 Dr. Ryley Beck Work Phone: [facility] Work Phone: 08-09-2021 08:12-0500 Body weight 73.[address] Ryley Beck Work Phone: [facility] Work Phone: 08-09-2021 08:12-0500 Diastolic blood pressure 80 mm[Hg] Dr. Ryley Beck Work Phone: [facility] Work Phone: 08-09-2021 08:12-0500 Systolic blood pressure 120 mm[Hg] Dr. Ryley Beck Work Phone: [facility] Work Phone: Encounters Encounter Date Encounter Type Care Provider Facility Start: 06-14-2025 End: 06-14-[address] Rocio Persaud MD -[facility] Work Phone: Start: 06-14-2025 End: 06-14-2025 ambulatory Abdirizak KERNS Work Phone: -[facility] Start: 06-05-2025 End: 06-05-[address] Rocio Persaud MD -[facility] Work Phone: Start: 06-05-2025 End: 06-05-2025 ambulatory Luke Mildred PA Work Phone: -[facility] Start: 05-31-2025 End: 05-31-2025 ambulatory Luke Mildred PA Work Phone: -[facility] Start: 05-31-2025 End: 05-31-[address] Rocio Persaud MD -[facility] Work Phone: Start: 05-31-2025 End: 05-31-[address] Rocio Persaud MD -[facility] Work Phone: Start: 05-31-2025 End: 05-31-2025 ambulatory Luke Mildred PA Work Phone: [facility] Start: 05-31-2025 End: 05-31-2025 ambulatory Luke Mildred Facility:[facility] Start: 05-18-2025 End: 05-18-2025 Patient encounter procedure Mariana HENDERSON -[facility] Work Phone: Start: 05-18-2025 End: 05-18-2025 ambulatory Luke Mildred PA Work Phone: -[facility] Start: 05-01-2025 End: 05-01-2025 Patient encounter procedure Jacinta Rojas CNM -[facility] Work Phone: Start: 05-01-2025 End: 05-01-2025 ambulatory Luke Mildred PA Work Phone: -[facility] Start: 04-20-2025 End: 04-20-[address] Rocio Persaud MD -[facility] Work Phone: Start: 04-20-2025 End: 04-20-2025 ambulatory Luke Mildred PA Work Phone: -[facility] Start: 04-20-2025 End: 04-20-2025 ambulatory Mariana [place] DIABETES CLINICAL MANAGER Facility:[facility] Start: 04-05-2025 End: 04-05-2025 ambulatory Abdirizak Richardsetler PA Work Phone: [facility] Start: 04-05-2025 End: 04-05-2025 Patient encounter procedure Mariana Karla DIABETES CLINICAL MANAGER-C -[facility] Work Phone: Start: 04-05-2025 End: 04-05-2025 ambulatory Abdirizak Richardsetler Facility:[facility] Start: 03-13-2025 End: 03-13-2025 Patient encounter procedure Jacinta Rojas CNM -[facility] Work Phone: Start: 03-13-2025 End: 03-13-2025 ambulatory Abdirizak RobertsMildred PA Work Phone: [facility] Start: 02-16-2025 End: 02-16-2025 Patient encounter procedure Mariana Karla DIABETES CLINICAL MANAGER-C -[facility] Work Phone: Start: 02-16-2025 End: 02-16-2025 ambulatory Abdirizak RobertsMildred PA Work Phone: [facility] Work Phone: Start: 02-06-2025 End: 02-06-2025 ambulatory ABDIRIZAK LEVY [facility] Start: 01-18-2025 End: 01-18-2025 Patient encounter procedure Mariana [place] DIABETES CLINICAL MANAGER-C -[facility] Work Phone: Start: 01-18-2025 End: 01-18-2025 ambulatory Luke Mildred PA Work Phone: [facility] Work Phone: Start: 12-22-2024 End: 12-22-[address] Bambi Bronson, [facility] Start: 12-22-2024 End: 12-22-[address] Bambi Callaway DO -[facility] Work Phone: Start: 12-22-2024 End: 12-22-2024 ambulatory Luke Mildred PA Work Phone: [facility] Work Phone: Start: 12-22-2024 End: 12-22-2024 ambulatory Bambi Callaway Facility:[facility] Start: 11-25-2024 End: 11-25-[address] Rocio Persaud MD -[facility] Work Phone: Start: 11-25-2024 End: 11-25-2024 ambulatory Luke Mildred PA Work Phone: [facility] Work Phone: Start: 11-25-2024 End: 11-25-2024 ambulatory Luke Mildred Facility:[facility] Start: 11-07-2024 End: 11-07-2024 ambulatory YAA DC [facility] Start: 11-02-2024 End: 11-02-2024 ambulatory Luke Mildred PA Work Phone: [facility] Work Phone: Start: 11-02-2024 End: 11-02-[address] Rocio Persaud MD -Ultrasound, [facility] Work Phone: Start: 11-02-2024 End: 11-02-2024 ambulatory Luke Mildred Facility:[facility] Start: 10-27-2024 End: 10-27-[address] Rocio Persaud MD -Laboratory, [facility] Start: 10-27-2024 End: 10-27-2024 ambulatory Luke Mildred Facility:[facility] Start: 06-20-2024 End: 06-20-2024 ambulatory YAA DC [facility] Start: 02-11-2024 End: 02-11-2024 Orders Luke Mildred PA-C Work Phone: [employer]. Start: 02-10-2024 End: 02-10-2024 Office outpatient visit 15 minutes Luke Mildred PA-C Work Phone: [employer]. Start: 10-26-2023 End: 10-26-2023 ambulatory PA Luke Mildred Work Phone: [facility] Work Phone: Start: 10-26-2023 End: 10-26-2023 Patient encounter procedure PA Luke Mildred Work Phone: [facility] Start: 10-09-2023 End: 10-09-2023 ambulatory PA Luke Mildred Work Phone: [facility] Work Phone: Start: 10-09-2023 End: 10-09-2023 Patient encounter procedure PA Luke Mildred Work Phone: [facility] Work Phone: Start: 07-20-2023 End: 07-20-2023 Orders Luke Mildred PA-C Work Phone: [employer]. Start: 07-13-2023 End: 07-13-2023 Office outpatient new 20 minutes Luke Mildred PA-C Work Phone: [employer]. Start: 01-01-2023 End: 01-01-[address] Venkat Jain Work Phone: [facility] Work Phone: Start: 01-01-2023 End: 01-01-[address] Venkat Jain Work Phone: [facility] Start: 12-23-2022 End: 12-23-[address] Venkat Jain Work Phone: [facility] Work Phone: Start: 12-23-2022 End: 12-23-[address] Venkat Jain Work Phone: [facility] Start: 12-08-2022 Non-patient / Non-visit Dr. Venkat Jain Work Phone: [facility] Start: 12-08-2022 End: 12-08-2022 Admission to same day surgery center [facility] Start: 12-04-2022 End: 12-04-[address] Venkat Jain Work Phone: [facility] Start: 03-26-2022 End: 03-26-[address] Ryley Beck Work Phone: [facility]-Laboratory Start: 03-26-2022 End: 03-26-[address] Ryley Beck Work Phone: [facility] Start: 03-05-2022 End: 03-05-[address] Ryley Beck Work Phone: [facility] Ul[facility] Start: 01-31-2022 End: 01-31-[address] Ryley Beck Work Phone: [facility] Start: 12-19-2021 Non-patient / Non-visit Dr. Ryley Beck Work Phone: [facility] Start: 12-17-2021 End: 12-19-2021 Evaluation and management of inpatient Dr. Ryley Beck Work Phone: [facility] Start: 12-17-2021 Non-patient / Non-visit Dr. Ryley Beck Work Phone: [facility] Start: 12-13-2021 End: 12-13-[address] Ryley Beck Work Phone: [facility] Start: 12-06-2021 End: 12-06-[address] Ryley Beck Work Phone: [facility] Start: 11-29-2021 End: 11-29-[address] Ryley Beck Work Phone: [facility] Start: 11-29-2021 End: 11-29-[address] [facility] Start: 11-15-2021 End: 11-15-[address] Ryley Beck Work Phone: [facility] Start: 11-01-2021 End: 11-01-[address] [facility] Beck [facility] Start: 10-18-2021 End: 10-18-[address] Ryley Beck Work Phone: [facility] Start: 10-02-2021 End: 10-02-[address] [facility]yle[facility] Beck [facility] Start: 09-03-2021 End: 09-03-[address] Ryley Beck Work Phone: [facility] Start: 08-09-2021 End: 08-09-[address] [facility] Beck [facility] Procedures Date Procedure Procedure Detail Performing Clinician Start: 05-31-2025 Beta-hemolytic Streptococcus culture Abdirizak KERNS Work Phone: Start: 04-05-2025 Serologic test for syphilis Abdirizak KERNS Work Phone: Start: 12-22-2024 Procedure Abdirizak KERNS Work Phone: Comment on above: Test Ordered: [id number] TSH Receptor Antibody (TBII)TSH Receptor Antibody (TBII) <0.3 U/L Reference Range: .Reference Range:Antibody Titer:<1.0 U/L = Negative1.1 - 1.5 U/L = Equivocal>1.5 U/L = PositivePerformed at: [facility] [address] [id number] Director: Steve Leslie MD, Phone: [phone] at: [facility] [id number] Director: Eleazar Gr PhD, Phone: [phone] Start: 12-22-2024 Hepatitis C antibody measurement Abdirizak [...] HCV Quant by PCR testing - HCVPCR #[id number] Non Reactive: < 0.8 Equivocal: >/= 0.8 [...] therefore, no HPV testing was performed.Performed at: [facility] [address] [id number] Director: Martin Meadows MD, Phone: [phone] at: [address] [id number] Director: Ashley Darling MD, Phone: [phone] Start: 11-25-2024 Urine culture Abdirizak KERNS Work [...] Activity Detail Author Start: 06-26-2025 ambulatory Ambulatory Facility:[facility] Start: 06-05-2025 [facility] Start: 06-05-2025 End: 06-05-2025 Patient encounter procedure Hx of one miscarriage -[facility] Work Phone: Start: 04-20-2025 T4 free measurement [facility] Start: 04-20-2025 Thyroid stimulating hormone measurement [facility] Start: 04-05-2025 CBC W Auto Differential panel - Blood [facility] Start: 04-05-2025 Measurement of glucose 2 hours after glucose challenge for glucose tolerance test [facility] Start: 04-05-2025 Serologic test for syphilis [facility] Start: 04-05-2025 [facility] Start: 12-22-2024 Procedure [facility] Start: 11-25-2024 Liquid based cervical cytology screening [facility] Start: 02-10-2024 Assay of thyroid stimulating hormone tsh TSH (THYROID STIMULATING HORMONE) ([id number]) Start: 10-Feb-2024 08:29-04:00 Request [employer] Start: 02-10-2024 Assay of free thyroxine T4 FREE ([id number]) Start: 10-Feb-2024 08:29-04:00 Request [employer] Start: 02-10-2024 Assay of triiodothyronine t3 free T3 FREE ([id number]) Start: 10-Feb-2024 08:29-04:00 Request [facility] Start: 12-08-2022 Anesthesia incomplete/missed ANESTH INC/MISSED AB PROC [facility] Start: 12-08-2022 Tx missed first trimester surgical CARE OF MISCARRIAGE [facility] Start: 12-08-2022 Ambulation without limitation [facility] Start: 12-08-2022 Medical regimen orders management [facility] Start: 12-08-2022 Medication education [facility] Start: 12-08-2022 Patient discharge [facility] Start: 12-08-2022 Procedure discontinued [facility] Start: 12-08-2022 Taking patient vital signs [facility] Start: 12-08-2022 Vital signs measurements [facility] Start: 12-08-2022 [facility] Start: 12-19-2021 Patient discharge [facility] Work Phone: Start: 12-17-2021 Administration of medication [facility] Work Phone: Start: 12-17-2021 Application of ice collar, cap or bag [facility] Work Phone: Start: 12-17-2021 Catheterization of vein [facility] Work Phone: Start: 12-17-2021 Introduction of urinary catheter [facility] Work Phone: Start: 12-17-2021 Measuring intake and output [facility] Work Phone: Start: 12-17-2021 Notification of physician [facility] Work Phone: Start: 12-17-2021 Procedure discontinued [facility] Work Phone: Start: 12-17-2021 Provision of activity privileges [facility] Work Phone: Start: 12-17-2021 Vital signs measurements [facility] Work Phone: Start: 12-17-2021 [facility] Work Phone: Start: 12-17-2021 Admission procedure [facility] Work Phone: CBC W Auto Different ial panel - Blood [facility] CBC W Auto Different ial panel - Blood [facility] Erythrocyte mean corpuscular volume determination [facility] Hematocrit [Volume Fraction] of Blood [facility] Hemoglobin [Mass/vol ume] in Blood [facility] Hepatitis C antibody measurement [facility] Leukocytes [#/volume ] in Blood [facility] Mean corpuscular hem oglobin concentration determination [facility] Mean corpuscular hem oglobin determination [facility] Measurement of gluco se 2 hours after glucose challenge for glucose tolerance test [facility] Neutrophil count [facility] Neutrophil percent differential count [facility] Patient Education After a Vaginal [facility] Work Phone: Patient referral [facility] Work Phone: Platelets [#/volume] in Blood [facility] Red blood cell count [facility] Red cell distributio n width determination [facility] Rubella IgG measurement [facility] Serologic test for syphilis [facility] Serologic test for syphilis [facility] T4 free measurement [facility] Thyroid stimulating hormone measurement [facility] [facility] stimulating hormone measurement [facility] Payers Date Payer Category Payer Self-pay [id number] 2024 Unknown [id number] 1998 Unknown [id number] 2.16.8 40.1.943809.3.579.2.651 1998 Unknown [id number] 2.16. 840.1.998611.3.579.2.479 1998 Unknown [id number] 2.16. 840.1.807742.3.579.2.479 Unknown [id number] Unknown [id number] 2 Unknown [id number] 2.16.8 40.1.642405.3.579.2.462 Unknown [id number] 2.16.8 40.1.012837.3.579.2.462 Unknown [id number] 2.16.8 40.1.155577.3.579.2.462 Unknown [id number] 2.16.8 40.1.566856.3.579.2.462 Unknown [id number] 2.16.8 40.1.003143.3.579.2.462 Unknown [id number] 2.16.8 40.1.536120.3.579.2.462 Unknown [id number] 2.16.8 40.1.837458.3.579.2.462 Unknown [id number] 2.16.8 40.1.444657.3.579.2.462 Unknown [id number] 2.16.8 40.1.248982.3.579.2.462 Unknown [id number] 2.16.8 40.1.864987.3.579.2.462 Unknown [id number] 2.16.8 40.1.020036.3.579.2.462 Unknown [id number] 2.16.8 40.1.931925.3.579.2.462 Unknown [id number] 2.16.8 40.1.828524.3.579.2.462 Unknown [id number] 2.16.8 40.1.943667.3.579.2.462 Unknown [id number] 2.16.8 40.1.197954.3.579.2.462 Unknown [id number] 2.16.8 40.1.232205.3.579.2.462 Unknown [id number] 2.16.8 40.1.696446.3.579.2.462 Unknown [id number] 2.16.8 40.1.109362.3.579.2.462 Unknown [id number] 2.16.8 40.1.291663.3.579.2.462 Unknown [id number] 2.16.8 40.1.465119.3.579.2.462 Social History Date Type Detail Facility Start: 11-29-2021 End: 10-09-2023 Tobacco smoking status NHIS Unknown if ever smoked [facility] Start: 2000 Sex Assigned At Female W [facility] Start: 11-04-2024 End: 04-20-2025 Tobacco smoking status NHIS Never smoked tobacco (finding) [facility] Start: 11-15-2024 End: 12-27-2024 Sex Female (finding) [facility] Sex Female [facility] NEGATED: Highlighted row No Social History Information Available No Social History Information Available [employer]; [employer] Work Phone: Medical Equipment Procedure Code Equipment [...] Assessment Result Facility 12-08-2022 Cognitive function Voice/Name [facility] Work Phone: Clinical Notes 11-02-2024 to 06-05-2025 Note Date & Type Note Facility 06-05-2025 Progress note [facility] 05-31-2025 Progress note [facility] 05-18-2025 Progress note [facility] 05-01-2025 Progress note [facility] 05-01-2025 Progress note Note Date/Time May 01, 2025 2:22pm [facility] [address], [address] [place] [address] OFFICE VISIT Date of Service: 05/01/25 MR#: [id number] Acct: [id number] Name: MICHELINE PERALES Rep #: [id number] : 2000 Provider: BRAN Rojas Age/Sex: 25/F Location[place] [facility] Status: Signed Intake Vital Signs 04/20/25 09:21 04/20/25 13:17 05/01/25 14:02 Height 5 ft 1 in 5 ft 1 in 5 ft 1 in Weight: 180 lb 9 oz BMI 34.1 BP 116/78 Intake Visit Reasons: 32wk OB Plastic Printer Required: No Is patient in pain?: No [...] 1 current occupational status: unemployed current occupation: [employer] pets and animals: No history of recent travel: No sexually active: Yes Smoking Status: Never smoker second hand exposure: No alcohol intake: never substance use type: does not use diet: other well-balanced diet: daily or most days caffeine: No eating out: rarely or never during the past year weight has: remained stable what type of physical activity do you participate in: none radha/scientology: None seatbelt use: always do you feel safe at home: Yes additional social history: [employer] History 3 Elective abortions [...] Symptoms of Preeclampsia, Infant Feeding Yes , [place] Education and Family Medical Leave or Disability [...] fallen in the past year?: No 05/01/25 9748 <Electronically signed by Jacinta mandujano CNM> Date _ Jacinta Rojas CNM Cosigner Signature: Date (if applicable) CC: ~ [facility] Work Phone: 1(804) 321-935907-30-2025 [facility] [address] [place] [address], [address] [place] [address] OFFICE VISIT Date of Service: 04/05/25 MR#: [id number] Acct: [id number] Name: MICHELINE PERALES Rep #: [id number] : 2000 Provider: SANTIAGO Acosta Age/Sex: 24/F Location: [facility] Status: Signed Intake Vital Signs 01/18/25 13:04 03/13/25 13:20 04/05/25 09:58 04/05/25 10:02 Height 5 ft 1 in 5 ft 1 in 5 ft 1 in 5 ft 1 in Weight: 174 lb 4 oz BMI 32.9 BP 104/70 Intake Visit Reasons: 28 wk ob/glucose Chief Complaint: 28 Week OB/Glucose Plastic Printer Required: No Is patient in pain?: No [...] 1 current occupational status: unemployed current occupation: [employer] pets and animals: No history of recent travel: No sexually active: Yes Smoking Status: Never smoker second hand exposure: No alcohol intake: never substance use type: does not use diet: other well-balanced diet: daily or most days caffeine: No eating out: rarely or never during the past year weight has: remained stable what type of physical activity do you participate in: none radha/scientology: None seatbelt use: always do you feel safe at home: Yes additional social history: [employer] History 3 Elective abortions [...] Symptoms of Preeclampsia, Infant Feeding Yes , [place] Education and Family Medical Leave or Disability [...] care and follow up. 04/05/25 1016 s DIABETES CLINICAL MANAGER DIABETES CLINICAL MANAGER-C> Date _ Mariana Acosta DIABETES CLINICAL MANAGER DIABETES CLINICAL MANAGER-C Candi Signature: Date (if applicable) CC: ~ [facility]07-07-2025 [facility] [address] [place] [address], [address] [place] [address] OFFICE VISIT Date of Service: 03/13/25 MR#: [id number] Acct: [id number] Name: MICHELINE PERALES Rep #: [id number] : 2000 Provider: BRAN Rojas Age/Sex: 24/F Location: [facility] Status: Signed Intake Vital Signs 01/18/25 13:04 02/16/25 09:48 03/13/25 13:20 Height 5 ft 1 in 5 ft 1 in 5 ft 1 in Weight: 171 lb 4 oz BMI 32.3 BP 107/71 Intake Visit Reasons: 25 wk ob Chief Complaint: 25wk OB Plastic Printer Required: No Is patient in pain?: No [...] 1 current occupational status: unemployed current occupation: [employer] pets and animals: No history of recent travel: No sexually active: Yes Smoking Status: Never smoker second hand exposure: No alcohol intake: never substance use type: does not use diet: other well-balanced diet: daily or most days caffeine: No eating out: rarely or never during the past year weight has: remained stable what type of physical activity do you participate in: none radha/scientology: None seatbelt use: always do you feel safe at home: Yes additional social history: [employer] History 3 Elective abortions [...] Cosigner Signature: Date (if applicable) CC: ~ [facility]06-12-2025 Evaluation note* Diagnosis Onset Date Resolution Status [...] miscarriage acute May 9:46am 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 acute 2024 9:46am acute May 9:46am [...] of high-risk acute June 05, 2025 8:43am [facility] Work Phone: 1(105) 552-974106-12-2025 Evaluation note* Diagnosis Onset Date Resolution Status [...] Supervision of high-risk acute June 14 11:37am [facility] Work Phone: 1(885) 494-477905-14-2025 Evaluation note* Diagnosis Onset Date Resolution Status [...] Supervision of high-risk acute April 20 9:14am [facility] Work Phone: [phone]) 311-126705-14-2025 Evaluation note* Diagnosis Onset Date Resolution Status [...] Supervision of high-risk acute May 01 1:59pm [facility] Work Phone: [phone] 138-221905-14-2025 Evaluation note* Diagnosis Onset Date Resolution Status [...] of high-risk acute May 18, 2025 9:46am [facility] Work Phone: [phone]) 680-849404-17-2025 Evaluation note* Diagnosis Onset Date Resolution Status [...] of high-risk acute April 05, 2025 9:36am [facility] Work Phone: 1([phone] 229-198604-17-2025 Evaluation note* Diagnosis Onset Date Resolution Status [...] Supervision of high-risk acute April 20 9:14am [facility] Work Phone: 1(612) 758-126803-21-2025 NotePap Smear Specimen AdequacyMarch 2024 11:59pmComment.Satisfactory for evaluation. Endocervical and/or squamous metaplasticcells (endocervical component)are present.[facility] INTERFACED A#[id number] Southeastern Medical CenterComment on above:Satisfactory for evaluation. Endocervical and/or squamous metaplasticcells (endocervical component)are present.11-25-2024 NotePap Smear Specimen AdequacyMarch 2024 11:59pmComment.Satisfactory for evaluation. Endocervical and/or squamous metaplasticcells (endocervical component)are present.[facility] INTER[facility]ACED A#[id number] Southeastern Medical CenterComment on above:Satisfactory for evaluation. Endocervical and/or squamous metaplasticcells (endocervical component)are present.11-25-2024 Evaluation note* Diagnosis Onset Date Resolution Status Admit Date Early stage of acute November 25, 2024 1:38pm Hx of one miscarriage acute Nov 1:38pm Hypothyroidism due to Hashim parveen's thyroiditis acute November 25, 2024 1:38pm acute November 25 1:38pm Supervision of high-risk acute November 25, 2024 1:38pm [facility] Work Phone: [phone]) 672-466203-21-2025 Evaluation note* Diagnosis Onset Date Resolution Status [...] of high-risk acute December 22, 2024 10:00am [facility] Work Phone: [phone]) 107-557503-21-2025 Evaluation note* Diagnosis Onset Date Resolution Status [...] high-risk acute January 18, 2025 1 2:45pm [facility] Work Phone: 1([phone]) 226-112003-21-2025 Evaluation note* Diagnosis Onset Date Resolution Status [...] of high-risk acute February 16, 2025 9:35am [facility] Work Phone: 1([phone]) 581-305803-21-2025 Evaluation note* Diagnosis Onset Date Resolution Status [...] high-risk acute March 13, 2025 1 :15pm [facility] Work Phone: [phone] Radiology Diagnostic study note [facility] Imaging Services [address] [place], [place] [address] Transvaginal w/Preg MR#: [id number] Acct: [id number] Name: MICHELINE PERALES Rep #: [id number] : 2000 F 24 From: Artemio Restrepo MD PCP: LUIS F Leiva Status: REG C DOROTHY Study:Transvaginal w/Preg US Date of Exam: 11/02/24 Exam# [id number] Ordering Dr: Rocio Stoner MD PROCEDURE: TRANSVAGINAL W/PREG US REASON FOR EXAM: Dating. COMPARISON: None. FINDINGS The uterus measures 9.6 x 6.9 x 4.8 cm. No fibroids. A gestational sac is present which dates 6 weeks and 2 days. The yolk sac is visualized. An embryo is visualized with a heart rate of 108. [place]- rump length measures 6weeks and 2 days. [...] Single live intrauterine as above. Reading Location: [place] [address] CC: Dr. Rocio Persaud MD; LUIS F Leiva ~ [employer] Grader: Signed [facility] Diagnosis Onset Date Resolution Status Hypothyroidism [...] affecting acute acute Supervision of normal acute [facility] Work Phone: Evaluation note* Diagnosis Onset Date [...] affecting acute resolved Supervision of normal resolved [facility] Work Phone: Evaluation note* Diagnosis Onset Date Resolution Status Hypothyroidism affecting resolved resolved Supervision of normal resolved Hypothyroidism affecting resolved resolved Supervision of normal resolved Hypothyroidism affecting resolved resolved Supervision of normal resolved Hypothyroidism affecting resolved resolved Supervision of normal resolved Vaginal delivery acute Hypothyroidism affecting resolved resolved Supervision of normal resolved Vaginal delivery acute [facility] Work Phone: Evaluation note* Diagnosis Onset Date Resolution Status Hypothyroidism affecting resolved resolved Supervision of normal resolved Hypothyroidism affecting resolved resolved Supervision of normal resolved Vaginal delivery acute Hypothyroidism affecting resolved resolved Supervision of normal resolved Vaginal delivery acute Vaginal pain acute [facility] Work Phone: Evaluation note* Diagnosis Onset Date Resolution Status Missed resolved Obesity affecting resolved resolved Supervision of high risk , antepartum resolved Thyroid disorder resolved Status post dilatation and curettage acute Missed resolved Postoperative examination no neactive [facility] Work Phone: Evaluation note* Diagnosis Onset Date Resolution Status 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 acute Infertility associated with anovulation acute [facility] Work Phone: Evaluation noteNo assessment information available [facility] Work Phone: Progress note Author Jacinta Rojas [facility] Note Date/Time March 13, 2025 1:40p m [facility] [address] [place] [address], [address] [place] [address] OFFICE VISIT Date of Service: 03/13/25 MR#: [id number] Acct: [id number] Name: MICHELINE PERALES Rep #: [id number] : 2000 Provider: BRAN Rojas Age/Sex: 24/F Location: [facility] Status: Signed Intake Vital Signs 01/18/25 13:04 02/16/25 09:48 03/13/25 13:20 Height 5 ft 1 in 5 ft 1 in 5 ft 1 in Weight: 171 lb 4 oz BMI 32.3 BP 107/71 Intake Visit Reasons: 25 wk ob Chief Complaint: 25wk OB Plastic Printer Required: No Is patient in pain?: No [...] 1 current occupational status: unemployed current occupation: [employer] pets and animals: No history of recent travel: No sexually active: Yes Smoking Status: Never smoker second hand exposure: No alcohol intake: never substance use type: does not use diet: other well-balanced diet: daily or most days caffeine: No eating out: rarely or never during the past year weight has: remained stable what type of physical activity do you participate in: none radha/scientology: None seatbelt use: always do you feel safe at home: Yes additional social history: [employer] History 3 Elective abortions [...] Symptoms of Preeclampsia, Infant Feeding No and [place] Education ROS Const Reports system reviewed and [...] Cosigner Signature: Date (if applicable) CC: ~ [facility] Work Phone: Progress note Author Mariana Acosta [facility] Note Date/Time April 05, 2025 10:1 [facility] [address] [place] [address], [address] [place] [address] OFFICE VISIT Date of Service: 04/05/25 MR#: [id number] Acct: [id number] Name: MICHELINE PERALES Rep #: [id number] : 2000 Provider: SANTIAGO Acosta Age/Sex: 24/F Location: [facility] Status: Signed Intake Vital Signs 01/18/25 13:04 03/13/25 13:20 04/05/25 09:58 04/05/25 10:02 Height 5 ft 1 in 5 ft 1 in 5 ft 1 in 5 ft 1 in Weight: 174 lb 4 oz BMI 32.9 BP 104/70 Intake Visit Reasons: 28 wk ob/glucose Chief Complaint: 28 Week OB/Glucose Plastic Printer Required: No Is patient in pain?: No [...] 1 current occupational status: unemployed current occupation: [employer] pets and animals: No history of recent travel: No sexually active: Yes Smoking Status: Never smoker second hand exposure: No alcohol intake: never substance use type: does not use diet: other well-balanced diet: daily or most days caffeine: No eating out: rarely or never during the past year weight has: remained stable what type of physical activity do you participate in: none radha/scientology: None seatbelt use: always do you feel safe at home: Yes additional social history: [employer] History 3 Elective abortions [...] and Symptoms of Preeclampsia, Feeding Yes , [place] Education and Family Medical Leave or Disability [...] follow up. 04/05/25 1016 <Electronically signed by Marinaa mandujano NP DIABETES CLINICAL MANAGER-C> Date _ Mariana Acosta DIABETES CLINICAL MANAGER DIABETES CLINICAL MANAGER-C Cosigner Signature: Date (if applicable) CC: ~ [facility] Work Phone: Progress note Author Mariana Acosta [facility] Note Date/Time May 18, 2025 10:05am [facility] [address], [address] [place] [address] OFFICE VISIT Date of Service: 05/18/25 MR#: [id number] Acct: [id number] Name: MICHELINE PERALES Rep #: [id number] : 2000 Provider: SANTIAGO Acosta Age/Sex: 25/F [place] [facility] Status: Signed Intake Vital Signs 04/20/25 09:21 05/01/25 14:02 05/18/25 09:52 05/18/25 09:56 Height 5 ft 1 in 5 ft 1 in 5 ft 1 in 5 ft 1 in Weight: 185 lb 1 oz BMI 34.9 BP 106/67 Intake Visit Reasons: 34 wk ob Chief Complaint: 34 Week OB Plastic Printer Required: No Is patient in pain?: No [...] 1 current occupational status: unemployed current occupation: [employer] pets and animals: No history of recent travel: No sexually active: Yes Smoking Status: Never smoker second hand exposure: No alcohol intake: never substance use type: does not use diet: other well-balanced diet: daily or most days caffeine: No eating out: rarely or never during the past year weight has: remained stable what type of physical activity do you participate in: none radha/scientology: None seatbelt use: always do you feel safe at home: Yes additional social history: [employer] History 3 Elective abortions [...] 05/18/25 1005 <Electronically signed by Mariana mandujano DIABETES CLINICAL MANAGER DIABETES CLINICAL MANAGER-C> Date _ Mariana Acosta DIABETES CLINICAL MANAGER DIABETES CLINICAL MANAGER-C Cosigner Signature: Date (if applicable) CC: ~ [facility] Work Phone: Progress note Author Rocio Persaud [facility] Note Date/Time May 31, 2025 9:39am [facility] [address] [place] [address], [address] [place] [address] OFFICE VISIT Date of Service: 05/31/25 MR#: [id number] Acct: [id number] Name: MICHELINE PERALES Rep #: [id number] : 2000 Provider: Dr. Joshua Persaud MD Age/Sex: 25/F Location: [facility] Status: Signed Intake Vital Signs 04/20/25 09:21 05/18/25 09:56 05/31/25 09:25 05/31/25 09:27 Height 5 ft 1 in 5 ft 1 in 5 ft 1 in 5 ft 1 in Weight: 188 lb 3 oz BMI 35.5 BP 130/77 H Intake Visit Reasons: 36 wk ob Chief Complaint: 36wk OB Plastic Printer Required: No Is patient in pain?: No [...] 1 current occupational status: unemployed current occupation: [employer] pets and animals: No history of recent travel: No sexually active: Yes Smoking Status: Never smoker second hand exposure: No alcohol intake: never substance use type: does not use diet: other well-balanced diet: daily or most days caffeine: No eating out: rarely or never during the past year weight has: remained stable what type of physical activity do you participate in: none radha/scientology: None seatbelt use: always do you feel safe at home: Yes additional social history: [employer] History 3 Elective abortions [...] Symptoms of Preeclampsia, Infant Feeding No , [place] Education and Family Medical Leave or Disability [...] Cosigner Signature: Date (if applicable) CC: ~ [facility] Work Phone: Progress note Author Rocio Persaud [facility] Note Date/Time June 05, 2025 9:18am [facility] [address], [address] [place] [id number] OFFICE VISIT Date of Service: 06/05/25 MR#: [id number] Acct: [id number] Name: MICHELINE PERALES Rep #: [id number] : 2000 Provider: Dr. Joshua Persaud MD Age/Sex: 25/F Location: [facility] Status: Signed Intake Vital Signs 05/18/25 09:56 05/31/25 09:27 06/05/25 08:45 06/05/25 08:46 Height 5 ft 1 in 5 ft 1 in 5 ft 1 in 5 ft 1 in Weight: 189 lb BMI 35.6 BP 106/73 Intake Visit Reasons: 37 WK OB Plastic Printer Required: No Is patient in pain?: No [...] 1 current occupational status: unemployed current occupation: [employer] pets and animals: No history of recent travel: No sexually active: Yes Smoking Status: Never smoker second hand exposure: No alcohol intake: never substance use type: does not use diet: other well-balanced diet: daily or most days caffeine: No eating out: rarely or never during the past year weight has: remained stable what type of physical activity do you participate in: none radha/scientology: None seatbelt use: always do you feel safe at home: Yes additional social history: [employer] History 3 Elective abortions [...] Symptoms of Preeclampsia, Infant Feeding No , [place] Education and Family Medical Leave or Disability [...] Cosigner Signature: Date (if applicable) CC: ~ [facility] Work Phone: Reason for referral (narrative)No reason for referral information availableOhio[facility] Work Phone: Chief Complaint and Reason for [...] May 18, 2025 9:46am Supervision of high-risk [facility] 2024 9:46am Hx of one miscarriage May 31 9:22am 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 May 31, 2025 9:22am May 31, 2025 9:22am Supervision of high-risk [facility] 2024 9:22am Hx of one miscarriage June 05 8:43am 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 June 05, 2025 8:43am June 05, 2025 8:43am Supervision of high-risk [facility] 2024 8:43am Chief Complaint Admit Date [...] May 18, 2025 9:46am [facility] 2024 9:46am Hx of one miscarriage May 31 9:22am 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 May 31, 2025 9:22am May 31, 2025 9:22am Supervision of high-risk [facility] 24th, 2025 9:22am Hx of one [...] No March 01, 2019 7:44pm Power of Weed Control Inspector No March 01 9 7:44pm Advance Directive Response Recorded Date/ Time Living Will No December 17, 2021 1:58pm Power of Weed Control Inspector No December 17 1:58pm Advance Directive Response Recorded Date/ Time Living Will No December 05, 2022 9:28am Power of Weed Control Inspector No December 05 9:28am Advance Directive Response Recorded Date/ Time Living Will No December 05, 2022 8:28am Power of Weed Control Inspector No December 05 8:28am Summary Purpose Additional [...] 2025 End: January 18, 2025 Mariana Acosta DIABETES CLINICAL MANAGER, DIABETES CLINICAL MANAGER-C Attending Provider Active Start: January 18, 2025 End: January 18, 2025 Team Status: Inactive Member Role Status Dates LUIS F Leiva Primary Care Provider Active Start: February 16, 2025 End: February 16, 2025 Abdirizak Levy PA Referring Provider Active Start: February 16, 2025 End: February 16, 2025 Mariana Acosta DIABETES CLINICAL MANAGER, DIABETES CLINICAL MANAGER-C Attending Provider Active Start: February 16, 2025 [...] 2025 End: January 18, 2025 Mariana Acosta DIABETES CLINICAL MANAGER, DIABETES CLINICAL MANAGER-C Attending Provider Active Start: January 18, 2025 End: January 18, 2025 Team Status: Inactive Member Role/Relationship Status Dates LUIS F Leiva Primary Care Provider Active Start: February 16, 2025 End: February 16, 2025 LUIS F Leiva Referring Provider Active Start: February 16, 2025 End: February 16, 2025 Mariana Acosta DIABETES CLINICAL MANAGER, DIABETES CLINICAL MANAGER-C Attending Provider Active Start: February 16, 2025 [...] 2025 End: January 18, 2025 Mariana Acosta DIABETES CLINICAL MANAGER, DIABETES CLINICAL MANAGER-C Attending Provider Active Start: January 18, 2025 End: January 18, 2025 Team Status: Inactive Member Role/Relationship Status Dates LUIS F Leiva Primary Care Provider Active Start: February 16, 2025 End: February 16, 2025 LUIS F Leiva Referring Provider Active Start: February 16, 2025 End: February 16, 2025 Mariana Acosta DIABETES CLINICAL MANAGER, DIABETES CLINICAL MANAGER-C Attending Provider Active Start: February 16, 2025 [...] 2025 End: April 05, 2025 Mariana Acosta DIABETES CLINICAL MANAGER, DIABETES CLINICAL MANAGER-C Attending Provider Active Start: April 05, 2025 [...] Active Start: April 20, 2025 Mariana Acosta DIABETES CLINICAL MANAGER, DIABETES CLINICAL MANAGER-C Attending Provider Active Start: April 20, 2025 Team Status: Inactive Member Role/Relationship Status Dates LUIS F Leiva Primary Care Provider Active Start: January 18, 2025 End: January 18, 2025 LUIS F Leiva Referring Provider Active Start: January 18, 2025 End: January 18, 2025 Mariana Acosta DIABETES CLINICAL MANAGER, DIABETES CLINICAL MANAGER-C Attending Provider Active Start: January 18, 2025 End: January 18, 2025 Team Status: Inactive Member Role/Relationship Status Dates LUIS F Leiva Primary Care Provider Active Start: February 16, 2025 End: February 16, 2025 LUIS F Leiva Referring Provider Active Start: February 16, 2025 End: February 16, 2025 Mariana Acosta DIABETES CLINICAL MANAGER, DIABETES CLINICAL MANAGER-C Attending Provider Active Start: February 16, 2025 [...] 2025 End: April 05, 2025 Mariana Acosta DIABETES CLINICAL MANAGER, DIABETES CLINICAL MANAGER-C Attending Provider Active Start: April 05, 2025 [...] 2025 End: April 20, 2025 Mariana Acosta DIABETES CLINICAL MANAGER, DIABETES CLINICAL MANAGER-C Attending Provider Active Start: April 20, 2025 [...] 2025 End: May 18, 2025 Mariana Acosta DIABETES CLINICAL MANAGER, DIABETES CLINICAL MANAGER-C Attending Provider Active Start: May 18, 2025 [...] End: February 16, 2025 Mariana Acosta NP, DIABETES CLINICAL MANAGER-C Attending physician Active Start: February 16, 2025 End: February 16, 2025 Team Status: Inactive Member Role/Relationship Status Dates LUIS F Leiva Primary care physician Active Start: March 13, 2025 End: March 13, 2025 LUIS F Leiva Referring Provider Active Start: March 13, 2025 End: March 13, 2025 Jacinta Rojas CNM Attending physician Active Start: March 13, 2025 End: March 13, 2025 Team Status: Inactive Member Role/Relationship Status Dates LUIS F Leiva Primary care physician Active Start: April 05, 2025 End: April 05, 2025 LUIS F Leiva Referring Provider Active Start: April 05, 2025 End: April 05, 2025 Mariana Acosta NP, DIABETES CLINICAL MANAGER-C Attending physician Active Start: April 05, 2025 [...] End: April 20, 2025 Mariana Acosta NP DIABETES CLINICAL MANAGER-C Attending physician Active Start: April 20, 2025 [...] 2025 End: May 18, 2025 Mariana Acosta DIABETES CLINICAL MANAGER, DIABETES CLINICAL MANAGER-C Attending physician Active Start: May 18, 2025 [...] DATE CREATED AUTHOR AUTHOR'S ORGANIZ ATION 11/08/2024 [facility] DATE CREATED AUTHOR AUTHOR'S ORGANIZ ATION 02/18/2025 [facility] DATE CREATED AUTHOR AUTHOR'S ORGANIZ ATION 06/16/2025 [facility] FOR RECORDS PERTAINING TO PATIENTS WHO [...] BE BASED ON THE PRIMARY CLINICAL RECORDS. [employer] provides no warranty or guarantee of the accuracy or completeness of information in this document.
[2025-06-22 16:26] LABS: Hematocrit 37.2 % (37-47); Hemoglobin 12.8 g/dL (12.0-15.0); Immature Granulocytes Count 0.100 X10^3/uL (0.0-0.0); Mean Corp Hgb Conc 34.4 g/dL (32-36); Mean Corpuscular Volume 89.9 fL (81-99); Mean Platelet Vol. 11.4 fl (6.2-12.0); NRBC Flagged by Analyzer 0 % (0-5); Platelet Count 207 K/mm3 (150-450); RBC Distribution Width CV 13.9 % (11.6-14.6); RBC Distribution Width SD 45.0 fl (35.1-43.9); Red Blood Count 4.14 M/mm3 (4.2-5.4); White Blood Count 11.3 K/mm3 (4.4-11.0)
[2025-06-22 16:44] LABS: Syphilis Antibodies Nonreactive (Nonreactive)
[2025-06-22] MEDS: Lactated Ringers 1,000 ML 200 ML IV (16:47)
[2025-06-22] MEDS: fentaNYL-bupivacaine (epidural) 100 ML BAG EPIDURAL (17:34)
--- NOTE | 2025-06-22 17:47 | PCM.PN.BLA ---
Progress Note patient is comfortable with epidural. She consents to AROM current tracing: FHT:120's Moderate variability reactive no decelerations category I tracing [place]: irregular contractions not picking up when on her side. cx 5/80/-1, membranes ruptured with a large amount of clear fluid. IUPC placed. reviewed tracing abnormalities since last note: no changes A/P: active labor at term pitocin as needed for augmentation discussed pending contraction pattern with the IUPC.
[2025-06-22] MEDS: Oxytocin 15 Units/NS 250ml 15 UNITS/250 ML IV.SOLN 2 UNITS IV (19:29)
--- NOTE | 2025-06-22 20:35 | EX.PCM.OBVAG ---
Assessment & Plan (1) Supervision of high-risk : QUALIFIERS: Trimester: third trimester Qualified Code(s): O09.93 - Supervision of high risk , unspecified, third trimester COMMENT: PRR, , ADONIS 06/26/25, surprise BEN Estradam, Subhash (2) Hx of one miscarriage: COMMENT: 2022 (3) : QUALIFIERS: Weeks of gestation: 39 weeks Qualified Code(s): Z3A.39 - 39 weeks gestation of COMMENT: Neg GBS. declined NIPT & Carrier testing. 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 on levothyroxine 75 mcg.TSH receptor antibody neg. Maternal Data Information ADONIS Calculator Estimated Delivery Date Method Current WG Current Estimate 06/26/25 Ultrasound #1 39w 3d Final ADONIS: 06/26/25 Vaginal Delivery Maternal Presentation Maternal Presentation: Active Labor Vaginal Delivery Information Procedure Performed: Spontaneous Vaginal Delivery Surgeon/Practitioner: Bambi Callaway Date of Procedure: 06/22/25 Pre-Procedure Diagnosis: 39 weeks 3 days, , active labor Post-Procedure Diagnosis: 39 weeks 3 days, , active labor Type of anesthesia: Epidural Estimated Blood Loss: 50cc Time of Delivery: 20:21 Findings Description of procedure: Patient began pushing and delivered the head in the DENISE presentation. The head was delivered atraumatically. The anterior and posterior shoulders delivered without complication followed by the rest of the and the infant was placed on the maternal abdomen. Delayed cord clamping was employed for approximately 60 seconds. Cord was clamped and cut and gentle traction was applied to the cord and the placenta delivered spontaneously immediately following it was noted to be intact with three-vessel cord. The perineum and vagina were inspected and noted to have no laceration. EBL was 50cc. Patient and tolerated delivery well. Procedure findings: viable male infant scores 9/9 [place] Presentation: Vertex Amniotic Membrane Rupture Type: Artificial Amniotic Fluid Description: Clear Placental Delivery Description: Spontaneous Placenta Disposition: [facility] Specimen collected: No Cord Vessel Description: 3 Vessels Cord Entanglement: None Infant A Gender: Male (1 minute): 9 (5 minute): 9 Delayed Cord Clamping: Yes Electric Range Assembler residential finish carpenter: No Post Vaginal Deli Medications given after delivery: IV Pitocin Episiotomy Description: None Laceration: None Complication Complications: No Multi Select Codes Urinary/Genital Urinary/Genital CPT Codes: 51568 Vaginal Delivery [facility]
--- NOTE | 2025-06-22 20:39 | DCINST_ITS ---
Discharge Instructions DC O2, CPAP, BIPAP needs Home O2 Discharge instructions: No Dressing / Incision Discharge Activity: Return to Normal Activity, May Not Drive (while taking narcotic pain medications.) and May Shower May resume sexual activity in: 4-6 weeks Dressing / Incision Call your doctor if your incision/area has: Continuous Slow Oozing, Sudden Increased Bleeding, Increased Pain/ Swelling, Increased Redness and Foul Smelling Discharge Follow Up Care Please Follow Up With: Bambi Callaway DO When: Call [phone] to make an appointment with your doctor in 6 weeks. If you had elevated blood pressure or 4th degree laceration, you will need to be seen in 2 weeks. Test Results: Test results from this visit will be discussed in further detail at your follow- up appointment, if applicable. Discharge Plan Admission Admit Date/Time: 06/22/25 15:36 Attending Provider: Bambi Clalaway Primary Care Provider: Abdirizak Roy Discharge Orders/Prescriptions Prescriptions: No Action vitamin B complex Tablet 1 tab PO QDAY Fortify Probiotic 50 billion cell-50 mg capsule,delayed release(DR/EC) 2 cap PO DAILY magnesium 200 mg tablet 400 mg PO QDAY ferrous sulfate 27 mg iron tablet 27 mg PO QDAY levothyroxine 75 mcg capsule 75 mcg PO QDAY Qty: 30 12RF Rx Instructions: take 1/2 tablet daily on an empty stomach, 30-60min prior to eating or drinking Referrals / Follow Up: Abdirizak Roy PA [Primary Care Provider, Urgent Care]
[2025-06-22] MEDS: Oxytocin 15 Units/NS 250ml 15 UNITS/250 ML IV.SOLN 83 UNITS IV (20:56)
[2025-06-23] VITALS (12 sets, daily range): BP systolic 97–128; BP diastolic 56–65; PULSE 75–90; RESP 14–17; TEMP 36.4–37; O2SAT 98–99
--- NOTE | 2025-06-23 13:02 | PN.OBGYN_ITS ---
Subjective Subjective Patient doing well without complaints. Tolerating PO. Ambulating and voiding without difficulty. feeding well. Denies chest pain, shortness of breath, calf pain/swelling, fevers, chills, lightheadedness. Objective Data Objective Data Vital Signs: Vital Signs Temp Pulse Resp BP Pulse Ox O2 Del Method 98 F 85 16 109/62 98 Room Air 06/23/25 12:07 06/23/25 12:08 06/23/25 12:07 06/23/25 12:08 06/23/25 12:08 06/23/25 12:07 Oxygen Delivery Method Room Air Weight: 191 lb Body Mass Index (BMI) 36.1 Intake & Output: Intake and Output for Last 24 Hours 06/21/25 06/22/25 06/23/25 23:59 23:59 23:59 Intake Total 1912.27 / 1912.27 Output Total 450 / 450 1500 / 1500 Balance 1462.27 / 1462.27 -1500 / -1500 Lab / Micro Data 06/22/25 15:45 Labs: Laboratory Results - last 24 hr 06/22/25 15:45: WBC 11.3 H, RBC 4.14 L, Hgb 12.8, Hct 37.2, MCV 89.9, MCH 30.9, MCHC 34.4, RDW Std Deviation 45.0 H, RDW Coeff of Leisa 13.9, Plt Count 207, MPV 11.4, Immature Gran % (Auto) 0.900, Neut % (Auto) 76.8 H, Lymph % (Auto) 16.9 L, [place] % (Auto) 4.5, Eos % (Auto) 0.7, Baso % (Auto) 0.2, Absolute Neuts (auto) 8.7 H, Absolute Lymphs (auto) 1.91, Nucleated RBC % 0, Syphilis Total Ab Nonreactive, Blood Type O POSITIVE, Antibody Screen NEGATIVE ROS Constitutional Constitutional: Reports systems reviewed and no addt'l complaints, except as documented Cardiovascular Cardiovascular: Reports systems reviewed and no addt'l complaints, except as documented Respiratory/Chest Respiratory/Chest: Reports systems reviewed and no addt'l complaints, except as documented Gastrointestinal Gastrointestinal: Reports systems reviewed and no addt'l complaints, except as documented Physical Exam Const alert, oriented x3 and no apparent distress HEENT Head and Scalp: atraumatic Resp normal respiratory effort GI soft to palpation and non-tender Bimanual Exam - Vag & Uterus: uterus non-tender Uterus Palpation: uterus fundus firm (below Umbilicus) Assessment & Plan (1) Hx of one miscarriage: COMMENT: 2022 (2) Supervision of high-risk : QUALIFIERS: Trimester: third trimester Qualified Code(s): O09.93 - Supervision of high risk , unspecified, third trimester COMMENT: PRR, , ADONIS 06/26/25, surprise PC Romario, Subhash (3) : QUALIFIERS: Weeks of gestation: 39 weeks Qualified Code(s): Z 3A.39 - 39 weeks gestation of COMMENT: Neg GBS. declined NIPT & Carrier testing. 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 on levothyroxine 75 mcg.TSH receptor antibody neg. PLAN: Plan routine care
[2025-06-24 01:40] VITALS: BP 108/64; PULSE 75; PULSE 77; RESP 16; TEMP 36.3; O2SAT 98
[2025-06-24 01:41] VITALS: BP 108/64; PULSE 74
[2025-06-24 09:19] VITALS: BP 114/72; PULSE 73; PULSE 86; RESP 16; TEMP 36.8; O2SAT 98
--- NOTE | 2025-06-24 09:25 | PCM.PN.CNM ---
Subjective Subjective s/p on day #2, desires d/c to home. Objective Data Objective Data Vital Signs: Vital Signs Temp Pulse Resp BP Pulse Ox O2 Del Method 98.2 F 86 16 114/72 98 Room Air 06/24/25 09:19 06/24/25 09:19 06/24/25 09:19 06/24/25 09:19 06/24/25 09:19 06/24/25 09:19 Oxygen Delivery Method Room Air Weight: 191 lb Body Mass Index (BMI) 36.1 Intake & Output: Intake and Output for Last 24 Hours 06/22/25 06/23/25 06/24/25 23:59 23:59 23:59 Intake Total 1912.27 / 1912.27 Output Total 450 / 450 1500 / 1500 Balance 1462.27 / 1462.27 -1500 / -1500 Lab / Micro Data Attestation: I reviewed the patient's lab results. 06/22/25 15:45 ROS Constitutional Constitutional: Reports systems reviewed and no addt'l complaints, except as documented Gastrointestinal Gastrointestinal: Reports systems reviewed and no addt'l complaints, except as documented Genitourinary Genitourinary: Reports systems reviewed and no addt'l complaints, except as documented Neurologic Neurologic: Reports systems reviewed and no addt'l complaints, except as documented Physical Exam Const alert, oriented x3 and no apparent distress General Appearance: cooperative and comfortable Orientation / Consciousness: awake, oriented to person, oriented to place and oriented to time HEENT normocephalic Resp normal respiratory effort and normal air movement Resp Narrative: Respirations eased & unlabored. Uterus Palpation: uterus fundus firm (u/1, small amt of dark red lochia, intact perineum.) Neuro oriented x3 Charges/Coding Multi Select Codes Urinary/Genital Urinary/Genital CPT Codes: 55739 CARE AFTER DELIVERY and No Charge Assessment & Plan (1) Supervision of high-risk : QUALIFIERS: Trimester: third trimester Qualified Code(s): O09.93 - Supervision of high risk , unspecified, third trimester COMMENT: PRR, , ADONIS 06/26/25, surprise PC Romario, Subhash PLAN: F/u in office at 6 wks. 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 on levothyroxine 75 mcg.TSH receptor antibody neg. PLAN: Continue as prescribed, f/u with PCP/prescriber prn. PLAN: Plan s/p PPD # 2 1. routine post delivery care 2. breast feeding- support given 3. rh positive 4. rubella immune 5. f/u in office in 6 wks
--- NOTE | 2025-06-24 11:55 | CASEMGMT ---
Social Work Assessment Labor and Delivery Unit Patient Address: [address] [place] [address] [place] [address] Phone number: [phone] Date of Referral: 06/23/25 Time of Referral: 05:15 Referred By: Bambi Callaway Date of Intervention: 06/24/2025 Time of Intervention: 11:55 Reason for Referral: Mental Health/PPD History obtained from: Mother of baby (MOB), father of baby (FOB; Subhash, age 27) and review of medical records. ? Household composition: MOB, FOB, their 3-year-old son Romario and their son To, born on 06/22/25. Patient's parent/guardian status: MOB and FOB have been together for 12 years and have been for 5 of those years. ???MOB denied any previous or current issues of domestic violence and described a positive relationship with the FOB. MOB and FOB both denied having any other children. Medical History: : 3, Para, now 2. MOB received PNC through [place] [facility] beginning at 9 weeks and 4 days. Visits were observed to be routine. Apgars: 9 and 9. Weight: 6lbs, 11oz. Key Punch Teacher: Dr. Abdirizak Roy. Educational Status: MOB and FOB denied any issues with reading, writing or learning comprehension. MOB and FOB both attended school through the 8th grade. Financial Status: MOB and FOB reported that their income is sufficient to meet the needs of their family at this time. MOB is a [id number] mom (SAHM) and the FOB is employed full-time as an electrician marine. Supplies: MOB and FOB reported they have the supplies they need for baby at this time including but not limited to: Car seat, crib, pack-n-play, diapers, bottles, breast pump and clothing. Childcare/Caregiver(s): MOB identified herself as the primary caregiver as a SAHM however the FOB will help provide childcare during the times he is at home. Transportation: MOB and FOB denied any issues/barriers to transportation at this time. MOB and FOB are able to secure drivers when needed. ? Programs/Agencies Involved: MOB and FOB were involved in pre-marital counseling. MOB and FB denied any other previous or current agency involvement. Children Services/Legal Issues: MOB and FOB denied any previous or current Children Services and/or legal involvement. Behavioral Health Issues: Denied. ? Mental Health History: MOB has a history of PPD. MOB used the words ?baby blues? and stated it lasted for approximately 2 weeks. MOB is not currently on any medication. FOB denied any mental health history. Matchbook Maker administered the [place] Depression Scale (EPDS). MOB?s score was an 8. Matchbook Maker reviewed the score with the MOB and provided education about the score which the MOB verbalized she understood. ? Substance Use History:?? MOB and FOB denied any history or current drug and/or alcohol abuse. ? Family History: MOB and FOB denied any family history on either side of mental health issues and/or drug and/or alcohol abuse. ??? Drug Screens: None obtained for the MOB or baby during this admission. Family/Social Stressors:?? Denied. Support Systems:? MOB identified her biggest support as the FOB, family as well as ?parents on both sides?. Depression/Shaken Baby/Safe Sleeping: Matchbook Maker provided verbal and written education on PPD, increased risk factors for PPD, Safe Sleeping and Shaken Baby.? MOB and FOB both verbalized an understanding.??? ASSESSMENT: MOB and FOB provided consent to social work visit. Upon arrival, the MOB and FOB were both sitting on the couch and the baby was sleeping in the hospital crib. The MOB and FOB had been preparing for discharge. The MOB and FOB were both verbally engaged and cooperative. Matchbook Maker observed positive interaction between the MOB and FOB as well as towards baby. At one point during the assessment, the baby started to cry and the MOB verbally prompted the FOB to get the baby out of the crib and give him to her so she could breastfeed which the FOB did. Both the MOB and FOB were observed to be very gentle towards and attached/bonded. ??At the end of the assessment, Matchbook Maker requested to speak with the MOB alone, which she and the FOB were both agreeable to. MOB reported feeling safe in her home and denied any previous or current domestic violence, unmanaged mental health issues either with herself or with the FOB, and also denied any concerns with any drug or alcohol abuse either with herself or with the FOB as well as any unmanaged mental health concerns. Safe Plan of Care for infant related to substance use: N/A PLAN: For MOB and baby to be discharged when medically ready. No other services requested or indicated. Bambi Larios, TIRE DUSTER, MAINT MECHANIC
== END 2025-06-24 12:30 | disposition home or self-care (01) | DRG 806 ==
LOC: WPOUT 15:38 → WP 15:39
PROVIDERS: Admitting Provider Obstetrics & Gynecology; PCP Physician Assistant; Referring Provider Obstetrics & Gynecology; Visit Provider Obstetrics & Gynecology
DX: O99.284 Endocrine, nutritional and metabolic diseases complicating childbirth (principal); Z37.0 Single live birth; O98.82 Other maternal infectious and parasitic diseases complicating childbirth; E06.3 Autoimmune thyroiditis; B95.1 Streptococcus, group B, as the cause of diseases classified elsewhere; Z3A.39 39 weeks gestation of pregnancy; Z87.59 Personal history of other complications of pregnancy, childbirth and the puerperium; Z79.890 Hormone replacement therapy
CPT/HCPCS: 59025; 59050; 85025; 86780; 86850; 86900; 86901; 99221; G0378

== ENCOUNTER → 2025-08-07 | Outpatient (CLI) | payer OTHER, SELFPAY ==
--- OUTSIDE RECORDS SUMMARY | 2025-08-07 20:05 | XMS RPT_ITS | CCD ---
Author Organization [facility] Team Providers Care Feed Mixer Helper Name Role Phone Dr. Ryley Beck Primary Care Provider Dr. Ryley Beck Referring Provider Dr. Bambi Callaway Attending Provider [phone] Dr. Rocio Persaud Attending Provider [phone] Karla PAID INTERNSHIP, PAID INTERNSHIPShelbie Peña Attending Provider [phone] Dr. Ryley [...] 30) Dr. Rocio Persaud Attending Provider [phone] Dr. Ryley Beck Primary Care Provider Dr. Ryley Beck Referring Provider Dr. Rocio Persaud Attending Provider [phone] Dr. Bambi Callaway Attending Provider 1([phone]) Dr. Bambi Callaway Attending Provider Dr. Venkat Jain Primary Care Provider Dr. Venkat Jain Referring Provider Dr. Rcoio Persaud Attending Provider [phone] Dr. Rocio [...] Admitting Unavailable Abdirizak Abdul Primary Care Provider [phone] Hung CHAN, Dr. Chan Attending Provider [phone] Dr. Rocio Persaud MD Referring Provider [phone] Abdirizak Abdul Primary Care Provider [phone] Abdirizak Abdul Referring Provider Dr. Bambi Callaway DO Attending Provider Dr. Bambi Callaway DO Referring Provider Mariana Steiner Attending Provider SACHA LEVYKE E Primary Care Unavailable BAMBI GARCIA Attending Unavailab le BAMBI GARCIA Referring Unavailab le SACHA LEVYKE E Primary Care Unavailable BAMBI GARCIA Referring [facility] DANNY Gaston Attending Unavailable Dr. Rocio Persaud MD Attending Provider [phone] Mildred PA, Luke Primary Care Provider Dr. Rocio Persaud MD Referring Provider [phone] Jacinta Rojas CNM Attending Provider [phone] Mildred PA, Luke Primary Care Provider Mildred PA, Luke Referring Provider Mildred PA, Luke Primary Care Provider Hnug CHAN, Dr. Chan Attending Provider [phone] Mildred PA, Luke Primary Care Provider Mildred PA, Luke Referring Provider Mildred PA, Luke Primary Care Provider Mildred PA, Luke Primary Care Physician Mildred PA, Luke Referring Provider [place] PAID INTERNSHIP-CMariana Attending Physician [phone] Jacinta Rojas CNM Attending Physician [phone] Milrded PA, Luke Primary Care Physician Hung CHAN, Dr. Chan Attending Physician Dr. Rocio Persaud MD Referring Provider Mildred PA, Luke Primary Care Physician Mildred PA, Luke Referring Provider [place] PAID INTERNSHIP-CMariana Attending Physician [phone] Alan Quiroz DO, Dr. Lacy Admitting Physician Alan Quiroz DO, Dr. Lacy Attending Physician Alan Quiroz DO, Dr. Lacy Referring Provider Alan Quiroz DO, Dr. Lacy Nurse Practitioner Irma Gandara CNM Attending Physician Unavail able Mildred PA, Luke Primary Care Physician [phone] Mildred PA, Luke Referring Provider Mariana Steiner Attending Physician [phone] Mildred KERNS, Luke Primary Care Physician Jacinta Rojas CNM Attending Physician [phone] Hung CHAN, Dr. Chan Attending Physician Hung CHAN, Dr. Chan Referring Provider Alan Quiroz DO, Dr. Lacy Admitting Physician Alan Quiroz DO, Dr. Lacy Attending Physician Alan Quiroz DO, Dr. Lacy Referring Provider Alan Quiroz DO, Dr. Lacy Nurse Practitioner Irma Gandara CNM Attending Physician Unavail able Mildred, Luke Referring Unavailable Jacinta Rojas Attending Unavailable Mildred, Luke Primary Care Unavailable Mildred, Luke Referring Unavailable Rocio Persaud Attending Unavailable Mildred, Luke Primary Care Unavailable Mildred, Luke Primary Care Unavailable Rocio Persaud Attending Unavailable Mildred, Luke Referring Unavailable Mildred, Luke Referring Unavailable Mariana Acosta NP Attending Unavailable Mildred, Luke Primary Care Unavailable VandBambi Trevino Admitting Unavailabl e Vande Velde, Bambi Referring Unavailabl e Vande Velde, Bambi Attending Unavailabl e Mildred, Luke Primary Care Unavailable Vande Gabriella, Bambi Attending Unavailabl e Vande Velde, Bambi Admitting Unavailabl e Vande Velde, Bambi Referring Unavailabl e Mildred, Luke Primary Care Unavailable Mildred, Luke Primary Care Unavailable Jacinta Rojas Attending Unavailable Mildred, Luke Primary Care Unavailable Rocio Persaud Referring Unavailable Rocio Persaud Attending Unavailable Mildred, Luke Referring Unavailable Vande VeldeBambi Attending Unavailabl e Mildred, Luke Primary Care Unavailable Vande Bambi Quiroz Consulting Unavailabl e Vande Velde, Bambi Admitting Unavailabl e Vande Velde, Bambi Referring Unavailabl e MarcanthonyRocio Attending Unavailable Mildred, Luke Primary Care Unavailable Irma Gandara Attending Unavailable Vande VeldeBambi Attending Unavailabl e Mildred, Luke Referring Unavailable Karla PAID INTERNSHIPMariana Attending Unavailable Mildred, Luke Primary Care Unavailable Mildred, Luke Primary Care Unavailable Jacinta Rojas Attending Unavailable Mildred, Luke Referring Unavailable [place] PAID INTERNSHIP, Mariana Attending Unavailable Mildred, Luke Primary Care Unavailable Mildred, Luke Referring Unavailable MarcanthonyRocio Attending Unavailable Mildred, Luke Primary Care Unavailable Mildred, Luke Referring Unavailable Mildred, Luke Referring Unavailable Marcanthony, Rocio Attending Unavailable Mildred, Luke Primary Care Unavailable MarcanthonyRocio Attending Unavailable MarcanthonyRocio Referring Unavailable Mildred, Luke Primary Care Unavailable Mildred, Luke Primary Care Unavailable MarcanthonyRocio Referring Unavailable MarcanthonyRocio Attending Unavailable Mildred, Luke Primary Care Unavailable Marcanthony, Rocio Referring Unavailable Marcanthony, Rocio Attending Unavailable Karla PAID INTERNSHIP, Mariana Attending Unavailable Mildred, Luke Primary Care Unavailable Vande Bambi Quiroz Attending Unavailabl e Vande Velde, Bambi Referring Unavailabl e Mildred, Luke Primary Care Unavailable Jacinta Rojas Attending Unavailable Mildred, Luke Referring Unavailable Mildred, Luke Primary Care Unavailable Karla PAID INTERNSHIP, Mariana Attending Unavailable Mildred, Luke Referring Unavailable Mildred, Luke Primary Care Unavailable Mildred, Luke Referring Unavailable Mildred, Luke Primary Care Unavailable MarcanthonyRocio Attending Unavailable Medications Current Medications Medication Drug Class(es) Dates Sig (Normalized) Sig (Original) endovan (20 sources) Start: 06-28-2021 endovan Active 1 PO June 28, 2021 12:59pm Start: 06-28-2021 endovan Active PO June 28, 2021 12:59pm Start: 06-28-2021 End: 03-26-2022 endovan Discontinued 1 PO 0 June 27, 2021 11:00pm March 26, 2022 10:09am Start: 06-28-2021 End: 03-26-2022 endovan Discontinued 1 PO 0 June 28, 2021 12:00am March 26, 2022 11:09am Start: 06-28-2021 End: 03-26-2022 endovan Discontinued 1 PO Oc er 2020 11:00pm March 26, 2022 10:09am Start: 06-28-2021 End: 03-26-2022 endovan Discontinued 1 PO Oc tober 2020 12:00am March 26, 2022 11:09am Start: 06-28-2021 endovan Active 1 PO June 28, 2021 12:00am ferrous sulfate 134 mg oral tablet (12 sources) Start: 04-05-2025 [facility] Lacto 51-B.Animal,Bifid-Inul in (Fortify Probiotic) 50 billion cell-50 mg capsule,delayed release(DR/EC) (18 sources) Start: 11-04-2024 Start: 11-04-2024 Start: 11-04-2024 Lacto 51-B.Ani mal,Bifid-Inulin (Fortify Probiotic) 50 billion cell-50 mg capsule,delayed release(DR/EC) Active 2 NMA PO DAILY November 04, 2024 1:00am Complies with drug therapy Start: 11-04-2024 Lacto 51-B.Ani mal,Bifid-Inulin (Fortify Probiotic) 50 billion cell-50 mg capsule,delayed release(DR/EC) Active 2 NMA PO DAILY November 04, 2024 1:00am Magnesium (18 sources) Start: 11-04-2024 take 2 tablets by mouth once d aily Start: 11-04-2024 take 2 tablets by mo ut once daily Start: 11-04-2024 take 2 tablets by mo [facility] once daily Magnesium 200 mg tablet Active 400 mg PO daily November 04, 2024 1:00am Complies with drug therapy Start: 11-04-2024 take 2 tablets by mo [facility] once daily Magnesium 200 mg tablet Active 400 mg PO daily November 04, 2024 1:00am Multivit 07-Lpqw-Hkktut 1-Dha (Pnv-Dha) 27 mg iron-1 mg -300 mg capsule (20 sources) Start: 05-14-2021 take 1 capsule by mouth once daily Multivit 21-Iddu-Pprjkl 1-Dha (Pnv-Dha) 27 mg iron-1 mg -300 mg capsule Active 1 CAP PO DAILY May 14, 2021 2:17pm Start: 05-14-2021 Multivit 47-Ir on-Folate 1-Dha (Pnv-Dha) 27 mg iron-1 mg -300 mg capsule Active CAP PO May 14, 2021 2:17pm Start: 05-14-2021 End: 11-04-2024 Multivit 43-Kkou-Zjunbp 1-Dh a (Pnv-Dha) 27 mg iron-1 mg -300 mg capsule Discontinued 1 NMA PO DAILY May 13, 2021 11:00pm November 04, 2024 11:42am Start: 05-14-2021 End: 11-04-2024 Multivit 36-Abqo-Mwnhoh 1-Dh a (Pnv-Dha) 27 mg iron-1 mg -300 mg capsule Discontinued 1 NMA PO DAILY May 14, 2021 12:00am November 04, 2024 12:42pm Start: 05-14-2021 take 1 capsule by mo uth once daily Multivit 23-Myzw-Umqzth 1-Dha (Pnv-Dha) 27 mg iron-1 mg -300 mg capsule Active 1 CAP PO DAILY May 13, 2021 11:00pm Start: 05-14-2021 take 1 capsule by mo uth once daily Multivit 90-Qkvd-Pokktd 1-Dha (Pnv-Dha) 27 mg iron-1 mg -300 mg capsule Active 1 CAP PO DAILY May 14, 2021 12:00am nijxa red (20 sources) Start: 06-28-2021 take 1 tablet by marixa th once daily nijxa red Active 1 TABLET PO DAILY June 28, 2021 12:58pm Start: 06-28-2021 nijxa red Acti ve PO June 28, 2021 12:58pm Start: 06-28-2021 End: 03-26-2022 nijxa red Discontinued 1 {tb l} PO DAILY 0 June 27, 2021 11:00pm March 26, 2022 10:10am Check with primary doctor Start: 06-28-2021 End: [...] Start: 06-28-2021 take 1 tablet by marixa th once daily nijxa red Active 1 TABLET PO DAILY June 28, 2021 12:00am Vitamin B Complex tablet (18 sources) Start: 11-04-2024 Start: 11-04-2024 Start: 11-04-2024 Vitamin B Comp nina tablet [...] TWICE A DAY 14 7 0 April 02, 2022 11:00pm April 08, 2022 11:00pm April 09, 2022 11:04pm Take one capsule by mouth twice a day for 7 days. cholecalciferol 0.125 mg oral tablet (20 sources) Vitamin D Start: 06-28-2021 End: 03-26-2022 take 1 tablet by mouth once daily Cholecalciferol (Vitamin D3) 125 mcg (5,000 unit) tablet Discontinued 125 ug PO DAILY June 27, 2021 11:00pm March 26, 2022 10:09am folic acid 0.4 mg oral tablet (20 sources) Start: 06-28-2021 End: 12-17-2021 take 0.4 mg by mouth once daily Folic Acid 400 mcg tablet Discontinued 0.4 mg PO DAILY June 27, 2021 11:00pm December 17, 2021 10:29pm Start: 06-28-2021 End: 12-17-2021 take 0.4 mg [...] needed for pain 30 7 0 December 16, 2021 11:00pm January 31, 2022 2:35pm Start: 03-01-2019 End: 05-14-2021 take 1 tablet by mouth once daily as needed for pain Ibuprofen 200 MG tablet Discontinued 200 mg PO DAILY NEEDED as needed for Pain February 28, 2019 11:00pm May 14, 2021 1:17pm lactobacillus acidophilus [id number] unt oral capsule (20 sources) Start: 03-01-2019 End: 05-14-2021 Lactobacillus Acidophilus 1 EACH capsule Discontinued 1 NMA PO DAILY February 28, 2019 11:00pm May 14, 2021 1:17pm digestion Start: 03-01-2019 End: 05-14-2021 Lactobacillus Acidophilus Di scontinued 1 EACH PO DAILY February 28, 2019 11:00pm May 14, 2021 1:17pm Levothyroxine (20 sources) l-Thyroxine Start: 04-20-2025 End: 04-20-2025 take 1 capsule by mouth once daily Levothyroxine 37.5 mcg capsule Discontinued 37.5 ug PO daily 05 09April 20, 2025 8:57am April 20, 2025 12:27pm Start: 04-20-2025 End: 04-20-2025 take 1 capsule by mouth once daily Levothyroxine 37.5 mcg capsule Discontinued 37.5 ug PO daily 05 09April 20, 2025 9:57am April 20, 2025 1:27pm Start: 04-20-2025 take 1 capsule by mo uth once daily Levothyroxine 37.5 mcg capsule Active 37.5 ug PO daily 30 April 20, 2025 9:57am Start: 04-20-2025 take 0.5 tablet by m outh once daily Start: 11-04-2024 End: 04-20-2025 take 1 capsule by mouth once daily Levothyroxine 37.5 mcg capsule Discontinued 37.5 ug PO daily November 04, 2024 12:00am April 20, 2025 8:57am Start: 11-04-2024 End: 04-20-2025 take 1 capsule by mouth once daily Levothyroxine 37.5 mcg capsule Discontinued 37.5 ug PO daily November 04, 2024 1:00am April 20, 2025 9:57am Start: 11-04-2024 take 1 capsule by mo uth once daily Levothyroxine 37.5 mcg capsule Active 37.5 ug PO daily November 04, 2024 1:00am Start: 06-06-2024 End: 06-06-2024 take 1 tablet by mouth once daily Levothyroxine 88 mcg tablet Discontinued 88 ug PO DAILY 30 06 10June 06, 2024 9:28am June 06, 2024 12:02pm Start: 02-11-2024 Synthroid 75 m cg tablet ; 1 (one) tablet daily for 0 days Quantity: 90 {Tablet} Refills: 3 Ordered: 11-Feb-2024 CADENCE Grigsby Start: 11-Feb-2024 Comments: Managed by Aleksandr Griffin Start: 01-08-2023 End: 06-06-2024 take 1 tablet by mouth once daily Levothyroxine 75 mcg tablet Discontinued 75 ug PO DAILY 100 3 January 07, 2023 11:00pm June 06, 2024 9:30am Start: 07-01-2021 End: 11-26-2022 take 1 tablet by mouth once daily Levothyroxine 75 mcg tablet Discontinued 75 ug PO DAILY 30 2 April 17, 2022 12:31pm November 26, 2022 10:08am Comment on above: Managed by Betito Griffin metroNIDAZOLE 500 mg oral tablet (10 sources) Nitroimidazole Antimicrobial Start: 04-20-20 End: 04-27-20 take 1 tablet by mouth twice daily Metronidazole 500 mg tablet Discontinued 500 mg PO TWICE A DAY 14 7 0 April 19, 2025 11:00pm April 25, 2025 11:00pm April 26, 2025 11:06pm omeprazole 20 mg delayed release oral tablet (20 sources) Proton Pump Inhibitor Start: 03-01-20 End: 05-14-20 take 1 tablet by mouth once daily Omeprazole Magnesium 20 MG tablet,delayed release (DR/EC) Discontinued 20 mg PO DAILY February 28, 2019 11:00pm May 14, 2021 1:17pm oxyCODONE hydrochloride 5 mg oral tablet (20 sources) Opioid Agonist Start: 03-02-20 End: 03-09-20 take 1 tablet by mouth every six hours as needed for pain Oxycodone 5 MG tablet Discontinued 5 mg PO EVERY 6 HOURS NEEDED as needed for Severe Pain (6-10/10) 20 7 0 March 02, 2019 March 07, 2019 11:00pm March 09, 2019 12:38pm Acute appendicitis Unspecified acute appendicitis Thyromin (20 sources) Start: 12-06-19 End: 10-09-19 Thyromin Discontinued 1 NMA SL/PO AT BEDTIME December 04, 2022 11:00pm October 09, 2023 9:10am Start: 12-05-2022 End: 10-09-2023 Thyromin Discontinued 1 NMA SL/PO AT BEDTIME [...] [Missed ] 12-04-2022 Episodic Other complications of (2 sources) Supervision of high risk , unspecified, third trimester; Translations: [Supervision of high risk , unspecified, third trimester] Onset: 06-22-2025 Episodic Other female genital disorders (4 sources) Vaginal pain; Translations: [Vaginal pain] 11-26-2022 Episodic Comment on above: suspect atrophy seco ndary to breast feeding. pt will call if pain comes back and will prescribe estradiol cream. Other and delivery including normal (20 sources) [...] & Carrier testing. , nl GCT Other skin disorders (9 sources) Epidermoid cyst [...] Comment on above: 2022 Residual codes; unclassified (2 sources) Personal history of other complications of , childbirth and the puerperium; Translations: [Personal history of other complications of , childbirth and the puerperium] Onset: 06-22-2025 Episodic Residual codes; unclassified (2 sources) 39 weeks gestation of ; Translations: [39 weeks gestation of ] Onset: 06-22-2025 Episodic Residual codes; unclassified (1 source) 36 weeks gestation of ; Translations: [36 weeks gestation of ] Onset: 05-31-2025 Episodic Residual codes; unclassified (1 source) 32 weeks gestation of ; Translations: [32 weeks gestation of ] Onset: 05-01-2025 Episodic Thyroid disorders (20 sources) Goiter; Translations: [Iodine-deficiency related diffuse (endemic) goiter] 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 o n levothyroxine 75 mcg tsh/free t4 checked at other provider- WNL. on levothyroxine 75 mcg tsh/free t4 checked at other provider- WNL. on levothyroxine 75 mcg.TSH receptor antibody neg. Thyroid disorders (20 sources) Disorder of thyroid gland; Translations: [Disorder of thyroid, unspecified] 12-08-2022 Episodic Comment on above: using Thyromin Capsu les from [facility] draw TSH level with labs Unclassified (2 [...] high-risk ] Onset: 12-01-2024 12-04-2022 Episodic Other complications of (1 source) Supervision of high risk , unspecified, second trimester; Translations: [Supervision of high risk , unspecified, second trimester] Onset: 04-11-2025 Episodic Other screening for suspected conditions (not mental [...] Test Name Value Interpretation Reference Range Facility Absolute lymphocyte countOrd ered By: Bambi Quiroz on 06-22-2025 Lymphocytes Auto (Unsp spec) [#/Vol] 1.91 10*3/uL 0.83-4.51 [facility] Absolute neutrophil countOrd ered By: Bambi Quiroz on 06-22-2025 Neutrophils (Bld) [#/Vol] 8.7 10*3/uL High 2.0-7.7 [facility] Automated lymphocyte count a s percentage of total leukocytesOrdered By: Bambi Quiroz on 06-22-2025 Lymphocytes/100 WBC Auto (Unsp spec) 16.9 % Low 19-41 [facility] Basophil percentageOrdered B y: Bambi Quiroz on 06-22-2025 Basophils/100 WBC (Bld) 0.2 % 0-1 [facility] CBC W/Diff, Automatedon 10- Absolute Lymph 1.91 X10 3/uL Normal 0.83-4.51 [facility] Comment on above: Performed By: #### B TS, L100.0100 ####[facility] [address] [place], [address] Absolute Neut 8.7 X10 3/uL High 2.0-7.7 [facility] Comment on above: Performed By: #### B TS, L100.0100 ####[facility] [address] [place], [address] Basophils/100 WBC (Bld) 0.2 % Normal 0-1 [facility] Comment on above: Performed By: #### Shirin GARCIA, L100.0100 ####[facility] [address] [place], [address] Eosinophils/100 WBC (Bld) 0.7 % Normal 0-5 [facility] Comment on above: Performed By: #### Shirin GARCIA, L100.0100 ####[facility] [address] [place], [address] Erythrocyte distribution width (RBC) [Ratio] 13.9 % Normal 11.6-14.6 [facility] Comment on above: Performed By: #### Shirin GARCIA, L100.0100 ####[facility] [address] [place], [address] Hematocrit (Bld) [Volume fraction] 37.2 % Normal 37-47 [facility] Comment on above: Performed By: #### Shirin GARCIA, L100.0100 ####[facility] [address] [place], [address] Hemoglobin (Bld) [Mass/Vol] 12.8 g/dL Normal 12.0-15.0 [facility] Comment on above: Performed By: #### Shirin GARCIA, L100.0100 ####[facility] [address] [place], [address] IG% 0.900 Normal 0.0-0.9 [facility] Comment on above: Result Comment: IG% - Immature Granulocytes (promyelocytes, myelocytes and metamyelocytes) > 1% indicates that a LEFT SHIFT is Present. Performed By: #### Shirin GARCIA, L100.0100 ####[facility] [address] [place], [address] Lymphocytes/100 WBC (Bld) 16.9 % Low 19-41 [facility] Comment on above: Performed By: #### Shirin GARCIA, L100.0100 ####[facility] [address] [place], [address] MCH (RBC) [Entitic mass] 30.9 pg Normal 27.0-32.0 [facility] Comment on above: Performed By: #### Shirin GACRIA, L100.0100 ####[facility] [address] [place], [address] MCHC (RBC) [Mass/Vol] 34.4 g/dL Normal 32-[address] [facility] Comment on above: Performed By: #### Shirin GARCIA, L100.0100 ####[facility] [address] [place], [address] MCV (RBC) [Entitic vol] 89.9 fL Normal 81-99 [facility] Comment on above: Performed By: #### Shirin GARCIA, L100.0100 ####[facility] [address] [place], [address] Monocytes/100 WBC (Bld) 4.5 % Normal 0-10 [facility] Comment on above: Performed By: #### Shirin GARCIA, L100.0100 ####[facility] [address] [place], [address] Neutrophils/100 WBC (Bld) 76.8 % High 47-70 [facility] Comment on above: Performed By: #### Shirin GARCIA, L100.0100 ####[facility] [address] [place], [address] Nucleated RBC (Bld) [#/Vol] 0 10*3/uL Normal 0-5 [facility] Comment on above: Performed By: #### Shirin GARCIA, L100.0100 ####[facility] [address] [place], [address] Platelet mean volume (Bld) [Entitic vol] 11.4 fL Normal 6.2-12.0 [facility] Comment on above: Performed By: #### Shirin GARCIA, L100.0100 ####[facility] [address] [place], [address] Platelets (Bld) [#/Vol] 207 10*3/uL Normal 150-450 [facility] Comment on above: Performed By: #### Shirin GARCIA, L100.0100 ####[facility] [address] [place], [address] RBC (Bld) [#/Vol] 4.14 10*6/uL Low 4.2-5.4 [facility] Comment on above: Performed By: #### Shirin GARCIA, L100.0100 ####[facility] [address] [place], [address] RDW SD 45.0 fl High 35.1-43.9 [facility] Comment on above: Performed By: #### Shirin GARCIA, L100.0100 ####[facility] [address] [place], [address] WBC (Bld) [#/Vol] 11.3 10*3/uL High 4.4-11.0 [facility] Comment on above: Performed By: #### Shirin GARCIA, L100.0100 ####[facility] [address] [place], [address] Discharge Instructionon 06-07 Discharge Instruction [facility] Medical Records Department [address] [place] [address] Instructions for Home/Discharge Instructions 06/22/252038 MR#: [id number] Acct: [id number] Name: MICHELINE PERALES Rep #: [id number] : 2000 25 From: Bambi Callaway DO PCP: LUIS F Leiva Status:ADM IN Discharge Instructions DC O2, CPAP, BIPAP needs Home O2 Discharge instructions: No Dressing / Incision Discharge Activity: Return to Normal Activity, May Not Drive (while taking narcotic pain medications.) and May Shower May resume sexual activity in: 4-6 weeks Dressing / Incision Call your doctor if your incision/area has: Continuous Slow Oozing, Sudden Increased Bleeding, Increased Pain/ Swelling, Increased Redness and Foul Smelling Discharge Follow Up Care Please Follow Up With: Bambi Callaway DO When: Call [phone] to make an appointment with your doctor in 6 weeks. If you had elevated blood pressure or 4th degree laceration, you will need to be seen in 2 weeks. Test Results: Test results from this visit will be discussed in further detail at your follow-up appointment, if applicable. Discharge Plan Admission Admit Date/Time: 06/22/25 15:36 Attending Provider: Bambi Callaway Primary Care Provider: Abdirizak Levy Discharge Orders/Prescriptions Prescriptions: No Action vitamin B complex Tablet 1 tab PO QDAY Fortify Probiotic 50 billion cell-50 mg capsule,delayed release(DR/EC) 2 cap PO DAILY magnesium 200 mg tablet 400 mg PO QDAY ferrous sulfate 27 mg iron tablet 27 mg PO QDAY levothyroxine 75 mcg capsule 75 mcg PO QDAY Qty: 30 12RF Rx Instructions: take 1/2 tablet daily on an empty stomach, 30-60min prior to eating or drinking Referrals / Follow Up: Abdirizak Levy PA [Primary Care Provider, Urgent Care] 06/22/252039 Bambi Callaway DO CC: LUIS F Leiva Signed Normal [facility] Eosinophil percentageOrdered By: Bambi Quiroz on 06-22-2025 Eosinophils/100 WBC (Bld) 0.7 % 0-5 [facility] Erythrocyte distribution wid th ratioOrdered By: Bambi Quiroz on 06-22-2025 Erythrocyte distribution width (RBC) [Ratio] 13.9 % 11.6-14.6 [facility] Erythrocyte distribution wid th standard deviationOrdered By: Bambi Quiroz on 06-22-2025 Erythrocyte distribution width (RBC) [Ratio] 45.0 fl High 35.1-43.9 [facility] H AND P Exam - OB/GYNon 06-07 H&P Exam - [employer] [facility] Medical Records Department [address] [place] [address] H P Exam - [employer] 06/22/25 1554 MR#: [id number] Acct: [id number] Name: MICHELINE PERALES Rep #: [id number] : 2000 25 From: Bambi Callaway DO PCP: LUIS F Leiva Status:ADM IN Location: [id number] HPI - General General Date of Admission: 06/22/25 HPI Narrative MICHELINE PERALES, is a 25 y/o @ 39 weeks 3 days who presents to L in active labor. She was found to be 3-4 cm in the office prior to presenting to [facility]. She sat on a birthing ball and walked for 2 hours and stated that if she were home she would come in now. Contractions are becoming closer together and cervix changed to 4.5/80/-2 with bulging membranes. 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 Wears glasses Thyroid disease Headache Shortness of breath on exertion Leg cramps Non-smoker History of irregular heartbeat Vaginal pain Pelvic pain Vaginal delivery Thyroid disorder Hypothyroidism affecting No significant medical problems Acute appendicitis Abdominal pain Home Medications ???Medication ???Instructions ???Recorded ???Last Taken ???Type Lacto-B.anim,bifid-inul in 50 2 cap PO DAILY 11/04/24 Unknown Hi story billion cell-50 mg capsule,delay release (Fortify Probiotic) magnesium 200 mg tablet 400 mg PO QDAY 11/04/24 Unknown Hi story vitamin B complex 1 tab PO QDAY 11/04/24 Unknown His tory ferrous sulfate 27 mg iron tablet 27 mg PO QDAY 04/05/25 Unknown Hi story levothyroxine 75 mcg capsule 75 mcg PO QDAY #30 caps 04/20/25 U nknown Rx Allergy/AdvReac Type Severity Reaction Status Date / Time No Known Allergies Allergy Verified 06/22/25 12:23 Family History Brother Cancer, Onset Age: 16 Acute lymphocytic Leukemia Surgical History Status post dilatation and curettage History of laparoscopic appendectomy ( 02/2019) Social History adopted: No household members: spouse and children housing: house number of children: 1 current occupational status: unemployed current occupation: [employer] pets and animals: No history of recent travel: No sexually active: Yes Smoking Status: Never smoker second hand exposure: No alcohol intake: never substance use type: does not use diet: other well-balanced diet: daily or most days caffeine: No eating out: rarely or never during the past year weight has: remained stable what type of physical activity do you participate in: none radha/mu-ism: None seatbelt use: always do you feel safe at home: Yes additional social history: [employer] History 3 Elective abortions Hx Para 1 Spontaneous abortions 1 Hx # Term Pregnancies Ectopic pregnancies Hx # Pregnancies Multiple births # of living children 1 Past Pregnancies Del. Date Name GA/Weeks Outcome Route Bth Weight Infant Gen Labor Lgth Anesthesia Del Locatn Provider FOB Unknown December 2022 spontaneous 12/17/21 Romario 39 live - full term 7lbs 3oz Male epidural WC V graham Quiroz Subhash Delivery Date: Last Updated by: Eileen Lomas Delivery Date: 12/17/21 Last Updated by: Christina KING Visit Details Expected Delivery Route/Plan Labor Preferences- CB/BF classes: no labor support person: Subhash labor intervention preferences: [] pain management options preferred: probable epidural cut cord/dad catch: cord : yes PP control planned: discussed discussed possible routes of delivery and associated risks: [] special requests: [] Plans Covid status: [] Flu vaccine: [] Tdap vaccine: declines Rhogam: NA LARC form signed: yes movement and labor precautions reviewed. Problem list reviewed and updated with the most current plan of care details and appropriate orders placed. Relevant counseling for the gestational age provided. Continue routine care and follow up unless otherwise noted in visit notes/problem list details OB Flowsheet Initial Weight: Not Recorded Date -???-???-???-???-???-?? ?-???-???-???-???-???-? ??- EGA Weight BP Urine Prot -???-???-???-???-???-?? ?-???-???-???-???-???-? ??- Glucose FHR FuHt Pres Dilation -???-???-???-???-???-?? ?-???-???-???-???-???-? ??- Effaced St Visit Note 11/25/24 -???-???-???-???-???-?? ?-???-???-???-???-???-? ??- 9w (more content not included)... Normal [facility] Hematocrit Auto (Bld) [Volum e fraction]Ordered By: Bambi Quiroz on 06-22-2025 Hematocrit (Bld) [Volume fraction] 37.2 % 37-47 [facility] Hemoglobin measurementOrdere d By: Bambi Quiroz on 06-22-2025 Hemoglobin (Bld) [Mass/Vol] 12.8 g/dL 12.0-15.0 [facility] Immature granulocytes/100 WB C Auto (Bld)Ordered By: Bambi Quiroz on 06-22-2025 Immature granulocytes/100 WBC (Bld) 0.900 % 0.0-0.9 [facility] Comment on above: IG% - Immature Granu locytes (promyelocytes, myelocytes and metamyelocytes) > 1% indicates that a LEFT SHIFT is Present. Laboratory - Chemistry and C hemistry - challengeOrdered By: Jacinta Rojas on 06-22-2025 Glucose Ql (U) Negative [facility] Laboratory - UrinalysisOrder ed By: Jacinta Rojas on 06-22-2025 Protein Ql (U) Negative [facility] MCV (mean corpuscular volume ) determinationOrdered By: Bambi Quiroz on 06-22-2025 MCV (RBC) [Entitic vol] 89.9 fL 81-99 [facility] MR/OB.VAGDELIon 10-16-2025 MR/OB.VAGDELI [facility] Medical Records Department [address] [place] [address] OB Vaginal Delivery 06/22/252034 MR#: [id number] Acct: [id number] Name: MICHELINE PERALES Rep #: [id number] : 2000 25 From: Bambi Callaway DO PCP: LUIS F Leiva Status:ADM IN Location: [id number] Assessment Plan (1) Supervision of high-risk : QUALIFIERS: Trimester: third trimester Qualified Code(s): O09.93 - Supervision of high risk , unspecified, third trimester COMMENT: PRR, , ADONIS 06/26/25, surprise PC Romario, Subhash (2) Hx of one miscarriage: COMMENT: 2022 (3) : QUALIFIERS: Weeks of gestation: 39 weeks Qualified Code(s): Z3A.39 - 39 weeks gestation of COMMENT: Neg GBS. declined NIPT Carrier testing. 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 on levothyroxine 75 mcg.TSH receptor antibody neg. Maternal Data Information ADONIS Calculator Estimated Delivery Date Method Current WG Current Estimate 06/26/25 Ultrasound #1 39w 3d Final ADONIS: 06/26/25 Vaginal Delivery Maternal Presentation Maternal Presentation: Active Labor Vaginal Delivery Information Procedure Performed: Spontaneous Vaginal Delivery Surgeon/Practitioner: Bambi Callaway Date of Procedure: 06/22/25 Pre-Procedure Diagnosis: 39 weeks 3 days, , active labor Post-Procedure Diagnosis: 39 weeks 3 days, , active labor Type of anesthesia: Epidural Estimated Blood Loss: 50cc Time of Delivery: 20:21 Findings Description of procedure: Patient began pushing and delivered the head in the DENISE presentation. The head was delivered atraumatically. The anterior and posterior shoulders delivered without complication followed by the rest of the infant and the was placed on the maternal abdomen. Delayed cord clamping was employed for approximately 60 seconds. Cord was clamped and cut and gentle traction was applied to the cord and the placenta delivered spontaneously immediately following it was noted to be intact with three-vessel cord. The perineum and vagina were inspected and noted to have no laceration. EBL was 50cc. Patient and tolerated delivery well. 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 Bambi Callaway, DO; LUIS F Leiva Signed Normal [facility] Mean corpuscular hemoglobin (MCH) determinationOrdered By: Bambi Quiroz on 06-22-2025 MCH (RBC) [Entitic mass] 30.9 pg 27.0-32.0 [facility] Mean corpuscular hemoglobin concentration (MCHC) determinationOrdered By: Bambi Quiroz on 06-22-2025 MCHC (RBC) [Mass/Vol] 34.4 g/dL 32-[address] [facility] Mean platelet volume determi nationOrdered By: Bambi Quiroz on 06-22-2025 Platelet mean volume (Bld) [Entitic vol] 11.4 fL 6.2-12.0 [facility] Monocyte percentageOrdered B y: Bambi Quiroz on 06-22-2025 Monocytes/100 WBC (Bld) 4.5 % 0-10 [facility] Neutrophil percentageOrdered By: Bambi Quiroz on 06-22-2025 Neutrophils/100 WBC (Bld) 76.8 % High 47-70 [facility] Nucleated red blood cell per centageOrdered By: Bambi Quiroz on 06-22-2025 Nucleated RBC/100 WBC (Bld) [Ratio] 0 % 0-5 [facility] Director Of Student Financial Services Office Visit Reporton 10-16-2025 Director Of Student Financial Services Office Visit Report [facility] [address], [address] [place] [address] OFFICE VISIT Date of Service: 06/22/25 MR#: [id number] Acct: [id number] Name: MICHELINE PERALES Rep #: [id number] : 2000 Provider: BRAN Forrester ams Age/Sex: 25/F [place] [facility] Status: Signed Intake Vital Signs 05/18/25 09:56 06/14/25 11:43 06/22/25 10:52 Height 5 ft 1 in 5 ft 1 in 5 ft 1 in Weight: 192 lb 6 oz BMI 36.3 BP 118/67 Intake Visit Reasons: 39 WK OB Chief Complaint: 39wk OB Therapeutic Radiologist Required: No Is patient in pain?: No Allergies No Known Allergies Allergy (Verified 06/22/25 10:51) Medications ???Medication ???Instructions ???Recorded ???Confirmed ???Type Lacto-B.anim,bifid-inul in 50 2 cap PO DAILY 11/04/24 06/22/25 H istory billion cell-50 mg capsule,delay release (Fortify Probiotic) magnesium 200 mg tablet 400 mg PO QDAY 11/04/24 06/22/25 H istory vitamin B complex 1 tab PO QDAY 11/04/24 06/22/25 Hi story ferrous sulfate 27 mg iron tablet 27 mg PO QDAY 04/05/25 06/22/25 H istory levothyroxine 75 mcg capsule 75 mcg PO QDAY #30 caps 04/20/25 1 Rx Last Menstrual Period: 04/30/24 : No [...] 1 current occupational status: unemployed current occupation: [employer] pets and animals: No history of recent travel: No sexually active: Yes Smoking Status: Never smoker second hand exposure: No alcohol intake: never substance use type: does not use diet: other well-balanced diet: daily or most days caffeine: No eating out: rarely or never during the past year weight has: remained stable what type of physical activity do you participate in: none radha/mu-ism: None seatbelt use: always do you feel safe at home: Yes additional social history: [employer] History 3 Elective abortions Hx [...] 12/17/21 Last Updated by: Christina KING HPI 39 WK OB Details: MICHELINE PERALES is a 25 year old who presents for routine OB visit. OB Visit ADONIS Calculator Estimated Delivery Date Method Current Current Estimate 06/26/25 Ultrasound #1 39w 3d Expected Delivery Route/Plan Labor Preferences- CB/BF [...] 9w 4d 159 lb 4 oz 111/76 -???-???-???-?? (more content not included)... Normal [facility] Platelet countOrdered By: Anmol Quiroz on 06-22-2025 Platelets (Bld) [#/Vol] 207 10*3/uL 150-450 [facility] RBC Auto (Bld) [#/Vol]Ordere d By: Bambi Quiroz on 06-22-2025 RBC (Bld) [#/Vol] 4.14 10*6/uL Low 4.2-5.4 [facility] Syphilis Antibodieson 2024 Syphilis Abs Non-Reactive Normal Nonreactive [facility] Comment on above: Performed By: #### L 509.8009 #### [facility] [address] [place], [address] Type AND Screenon 06-22-2025 Ab SCREEN GEL Negative Normal [facility] Comment on above: Order Comment: Labor Performed By: #### B TS, L100.0100 ####[facility] [id number] [place], [address] White blood cell (WBC) count Ordered By: Bambi Quiroz on 06-22-2025 WBC (Bld) [#/Vol] 11.3 10*3/uL High 4.4-11.0 [facility] Laboratory - Chemistry and C hemistry - challengeOrdered By: Rocio Persaud on 06-14-2025 Glucose Ql (U) Negative [facility] Laboratory - UrinalysisOrder ed By: Rocio Persaud on 06-14-2025 Protein Ql (U) Negative [facility] Director Of Student Financial Services Office Visit Reporton 06-14-2025 Director Of Student Financial Services Office Visit Report [facility] [address], [address] [place] [address] OFFICE VISIT Date of Service: 06/14/25 MR#: [id number] Acct: [id number] Name: MICHELINE PERALES Rep #: [id number] : 2000 Provider: Dr. Rocio hoang MD Age/Sex: 25/F [place] [facility] Status: Signed Intake Vital Signs 05/18/25 09:56 06/05/25 08:46 06/14/25 11:40 06/14/25 11:43 Height 5 ft 1 in 5 ft 1 in 5 ft 1 in 5 ft 1 in Weight: 190 lb 7 oz BMI 35.9 BP 105/68 Intake Visit Reasons: 38 WK OB Therapeutic Radiologist Required: No Is patient in pain?: No [...] 1 current occupational status: unemployed current occupation: [employer] pets and animals: No history of recent travel: No sexually active: Yes Smoking Status: Never smoker second hand exposure: No alcohol intake: never substance use type: does not use diet: other well-balanced diet: daily or most days caffeine: No eating out: rarely or never during the past year weight has: remained stable what type of physical activity do you participate in: none radha/mu-ism: None seatbelt use: always do you feel safe at home: Yes additional social history: [employer] History 3 Elective abortions Hx Para 1 Spontaneous abortions 1 Hx # Term Pregnancies Ectopic pregnancies Hx # Pregnancies Multiple births # of living children 1 Past Pregnancies Del. Date Name GA/Weeks Outcome Route Bth Weight Infant Gen Labor Lgth Anesthesia Del Locatn Provider FOB Unknown December 2022 spontaneous 12/17/21 Romario 39 live - full term 7lbs 3oz Male epidural [facility] V graham Quiroz Subhash Delivery Date: Last Updated by: Eileen Lomas SM Delivery Date: 12/17/21 Last Updated by: Christina Russell SROM HPI 38 WK OB Details: MICHELINE PERALES [...] oz 111/7 (more content not included)... Normal [facility] Director Of Student Financial Services Office Visit Reporton 06-05-2025 Director Of Student Financial Services Office Visit Report [facility] [address], [address] [place] [address] OFFICE VISIT Date of Service: 06/05/25 MR#: [id number] Acct: [id number] Name: MICHELINE PERALES Rep #: [id number] : 2000 Provider: Dr. Rocio hoang MD Age/Sex: 25/F [place] [facility] Status: Signed Intake Vital Signs 05/18/25 09:56 05/31/25 09:27 06/05/25 08:45 06/05/25 08:46 Height 5 ft 1 in 5 ft 1 in 5 ft 1 in 5 ft 1 in Weight: 189 lb BMI 35.6 BP 106/73 Intake Visit Reasons: 37 WK OB Therapeutic Radiologist Required: No Is patient in pain?: No [...] 1 current occupational status: unemployed current occupation: [employer] pets and animals: No history of recent travel: No sexually active: Yes Smoking Status: Never smoker second hand exposure: No alcohol intake: never substance use type: does not use diet: other well-balanced diet: daily or most days caffeine: No eating out: rarely or never during the past year weight has: remained stable what type of physical activity do you participate in: none radha/mu-ism: None seatbelt use: always do you feel safe at home: Yes additional social history: [employer] History 3 Elective abortions Hx Para 1 Spontaneous abortions 1 Hx # Term Pregnancies Ectopic pregnancies Hx # Pregnancies Multiple births # of living children 1 Past Pregnancies Del. Date Name GA/Weeks Outcome Route Bth Weight Infant Gen Labor Lgth Anesthesia Del Locatn Provider FOB Unknown December 2022 spontaneous 12/17/21 Romario 39 live - full term 7lbs 3oz Male epidural WC V grahamvitaly Quiroz Subhash Delivery Date: Last Updated by: Eileen Lomas Delivery Date: 12/17/21 Last Updated by: Christina KING HPI 37 WK OB Details: MICHELINE PERALES is a 25 year old who presents for routine OB visit. OB Visit ADONIS Calculator Estimated Delivery Date Method Current Current Estimate 06/26/25 Ultrasound #1 37w 0d [...] ?-???-???-???-???-???-? ?? (more content not included)... Normal [facility] Rule out Beta Strep (Grp. B) on 06-02-2025 LISA Group B Beta Streptococcus is not isolated. Normal [facility] Comment on above: Performed By: #### M 100.3400 #### [facility] [address] [place], [place], [id number] Screening beta-hemolytic Str eptococcus cultureOrdered By: Rocio Persaud on 06-01-2025 Beta-hemolytic Streptococcus culture Group B Beta Streptococcus is not isolated. [facility] Laboratory - Chemistry and C hemistry - challengeOrdered By: Rocio Persaud on 05-31-2025 Glucose Ql (U) Negative [facility] Laboratory - UrinalysisOrder ed By: Rocio Persaud on 05-31-2025 Protein Ql (U) Negative [facility] Director Of Student Financial Services Office Visit Reporton 05-31-2025 Director Of Student Financial Services Office Visit Report [facility], [address] [place] [address] OFFICE VISIT Date of Service: 05/31/25 MR#: [id number] Acct: [id number] Name: MICHELINE PERALES Rep #: [id number] : 2000 Provider: Dr. Rocio hoang MD Age/Sex: 25/F [place] [facility] Status: Signed Intake Vital Signs 04/20/25 09:21 05/18/25 09:56 05/31/25 09:25 05/31/25 09:27 Height 5 ft 1 in 5 ft 1 in 5 ft 1 in 5 ft 1 in Weight: 188 lb 3 oz BMI 35.5 BP 130/77 H Intake Visit Reasons: 36 wk ob Chief Complaint: 36wk OB Therapeutic Radiologist Required: No Is patient in pain?: No [...] 1 current occupational status: unemployed current occupation: [employer] pets and animals: No history of recent travel: No sexually active: Yes Smoking Status: Never smoker second hand exposure: No alcohol intake: never substance use type: does not use diet: other well-balanced diet: daily or most days caffeine: No eating out: rarely or never during the past year weight has: remained stable what type of physical activity do you participate in: none radha/mu-ism: None seatbelt use: always do you feel safe at home: Yes additional social history: [employer] History 3 Elective abortions Hx [...] 9w 4d (more content not included)... Normal [facility] Screening beta-hemolytic Str eptococcus cultureOrdered By: Rocio Persaud on 05-31-2025 Beta-hemolytic Streptococcus culture Group B Beta Streptococcus is not isolated. [facility] Laboratory - Chemistry and C hemistry - challengeOrdered By: Mariana Acosta on 05-18-2025 Glucose Ql (U) Negative [facility] Laboratory - UrinalysisOrder ed By: Mariana Acosta on 05-18-2025 Protein Ql (U) Negative [facility] Director Of Student Financial Services Office Visit Reporton 05-18-2025 Director Of Student Financial Services Office Visit Report [facility] [address], [address] [place] [address] OFFICE VISIT Date of Service: 05/18/25 MR#: [id number] Acct: [id number] Name: MICHELINE PERALES Rep #: [id number] : 2000 Provider: SANTIAGO leiva Age/Sex: 25/F [place] [facility] Status: Signed Intake Vital Signs 04/20/25 09:21 05/01/25 14:02 05/18/25 09:52 05/18/25 09:56 Height 5 ft 1 in 5 ft 1 in 5 ft 1 in 5 ft 1 in Weight: 185 lb 1 oz BMI 34.9 BP 106/67 Intake Visit Reasons: 34 wk ob Chief Complaint: 34 Week OB Therapeutic Radiologist Required: No Is patient in pain?: No [...] 1 current occupational status: unemployed current occupation: [employer] pets and animals: No history of recent travel: No sexually active: Yes Smoking Status: Never smoker second hand exposure: No alcohol intake: never substance use type: does not use diet: other well-balanced diet: daily or most days caffeine: No eating out: rarely or never during the past year weight has: remained stable what type of physical activity do you participate in: none radha/mu-ism: None seatbelt use: always do you feel safe at home: Yes additional social history: [employer] History 3 Elective abortions Hx [...] -???-???-???-???-???-?? ?-???-???-???-???-???-? (more content not included)... Normal [facility] Laboratory - Chemistry and C hemistry - challengeOrdered By: Jacinta Rojas on 05-01-2025 Glucose Ql (U) Negative [facility] Laboratory - UrinalysisOrder ed By: Jaicnta Rojas on 05-01-2025 Protein Ql (U) Negative [facility] Director Of Student Financial Services Office Visit Reporton 05-01-2025 Director Of Student Financial Services Office Visit Report [facility] [address], [address] [place] [address] OFFICE VISIT Date of Service: 05/01/25 MR#: [id number] Acct: [id number] Name: MICHELINE PERALES Rep #: [id number] : 2000 Provider: BRAN Forrester ams Age/Sex: 25/F Location[place] [facility] Status: Signed Intake Vital Signs 04/20/25 09:21 04/20/25 13:17 05/01/25 14:02 Height 5 ft 1 in 5 ft 1 in 5 ft 1 in Weight: 180 lb 9 oz BMI 34.1 BP 116/78 Intake Visit Reasons: 32wk OB Therapeutic Radiologist Required: No Is patient in pain?: No [...] 04/20/25 0 05/01/25 Rx Last Menstrual Period: 08/24/24 Zika: Zika virus screening: Negative : Yes [...] 1 current occupational status: unemployed current occupation: [employer] pets and animals: No history of recent travel: No sexually active: Yes Smoking Status: Never smoker second hand exposure: No alcohol intake: never substance use type: does not use diet: other well-balanced diet: daily or most days caffeine: No eating out: rarely or never during the past year weight has: remained stable what type of physical activity do you participate in: none radha/mu-ism: None seatbelt use: always do you feel safe at home: Yes additional social history: [employer] History 3 Elective abortions Hx [...] 111/76 -???-? (more content not included)... Normal [facility] Laboratory - Chemistry and C hemistry - challengeOrdered By: Rocio Persaud on 04-20-2025 Glucose Ql (U) Negative [facility] Laboratory - UrinalysisOrder ed By: Rocio Persaud on 04-20-2025 Protein Ql (U) Negative [facility] Director Of Student Financial Services Office Visit Reporton 04-20-2025 Director Of Student Financial Services Office Visit Report [facility] [address], [address] [place] [address] OFFICE VISIT Date of Service: 04/20/25 MR#: [id number] Acct: [id number] Name: MICHELINE PERALES Rep #: [id number] : 2000 Provider: Dr. Rocio hoang MD Age/Sex: 25/F [place] [facility] Status: Signed Intake Vital Signs 02/16/25 09:48 04/05/25 10:02 04/20/25 09:19 04/20/25 09:21 Height 5 ft 1 in 5 ft 1 in 5 ft 1 in 5 ft 1 in Weight: 177 lb 1 oz BMI 33.4 BP 100/65 Intake Visit Reasons: 30 wk ob Therapeutic Radiologist Required: No Is patient in pain?: No [...] Period: 04/30/24 Zika: Zika virus screening: Negative PFSH PFSH Medical History Infertility associated with [...] 1 current occupational status: unemployed current occupation: [employer] pets and animals: No history of recent travel: No sexually active: Yes Smoking Status: Never smoker second hand exposure: No alcohol intake: never substance use type: does not use diet: other well-balanced diet: daily or most days caffeine: No eating out: rarely or never during the past year weight has: remained stable what type of physical activity do you participate in: none radha/mu-ism: None seatbelt use: always do you feel safe at home: Yes additional social history: [employer] History 3 Elective abortions Hx Para 1 Spontaneous abortions 1 Hx # Term Pregnancies Ectopic pregnancies Hx # Pregnancies Multiple births # of living children 1 Past Pregnancies Del. Date Name GA/Weeks Outcome Route Bth Weight Infant Gen Labor Lgth Anesthesia Del Locatn Provider FOB Unknown December 2022 spontaneous 12/17/21 Romario 39 live - full term 7lbs 3oz Male epidural [facility] V graham Quiroz Subhash Delivery Date: Last Updated by: Eileen Lomas Delivery Date: 12/17/21 Last Updated by: Christina Russell SROM HPI 30 wk ob Details: MICHELINE PERALES [...] 11/25/24 -???-???-??? (more content not included)... Normal [facility] T4 Free Directon 04-20-2025 T4 FREE DIRECT 0.80 ng/dL Normal 0.76-1.46 [facility] Comment on above: Performed By: #### L 506.0400, L582.1540 ####[facility] [address] [place], [place], [id number] T4 freeOrdered By: Mariana mcbride on 04-20-2025 Free T4 [Mass/Vol] 0.80 ng/dL 0.76-1.46 [facility] TSH DL <= 0.005 mIU/L QnOrde red By: Mariana Acosta on 04-20-2025 TSH Qn 3.700 uIU/mL 0.300-4.200 [facility] Thyroid Stim Hormone (TSH)on 04-20-2025 TSH 3.700 uIU/mL Normal 0.300-4.200 [facility] Comment on above: Performed By: #### L 506.0400, L501.9520 ####[facility] [address] [place], [address] Absolute lymphocyte countOrd ered By: Jacinta Rojas on 04-05-2025 Lymphocytes Auto (Unsp spec) [#/Vol] 1.70 10*3/uL 0.83-4.51 [facility] Absolute neutrophil countOrd ered By: Jacinta Rojas on 04-05-2025 Neutrophils (Bld) [#/Vol] 7.6 10*3/uL 2.0-7.7 [facility] Automated lymphocyte count a s percentage of total leukocytesOrdered By: Jacinta Rojas on 04-05-2025 Lymphocytes/100 WBC Auto (Unsp spec) 16.9 % Low 19-41 [facility] Basophil percentageOrdered B y: Jacinta Rojas on 04-05-2025 Basophils/100 WBC (Bld) 0.2 % 0-1 [facility] CBC W/Diff, Automatedon 03-09 Absolute Lymph 1.70 X10 3/uL Normal 0.83-4.51 [facility] Comment on above: Performed By: #### L 3890.6006, L509.8002, L100.0100, L501.0250 #### [facility] [address] [place], [address] Absolute Neut 7.6 X10 3/uL Normal 2.0-7.7 [facility] Comment on above: Performed By: #### L 3890.6006, L509.8002, L100.0100, L501.0250 #### [facility] [address] [place], [address] Basophils/100 WBC (Bld) 0.2 % Normal 0-1 [facility] Comment on above: Performed By: #### L 3890.6006, L509.8002, L100.0100, L501.0250 #### [facility] [address] [place], [address] Eosinophils/100 WBC (Bld) 0.7 % Normal 0-5 [facility] Comment on above: Performed By: #### L 3890.6006, L509.8002, L100.0100, L501.0250 #### [facility] [address] [place], [address] Erythrocyte distribution width (RBC) [Ratio] 13.7 % Normal 11.6-14.6 [facility] Comment on above: Performed By: #### L 3890.6006, L509.8002, L100.0100, L501.0250 #### [facility] [address] [place], [address] Hematocrit (Bld) [Volume fraction] 35.7 % Low 37-47 [facility] Comment on above: Performed By: #### L 3890.6006, L509.8002, L100.0100, L501.0250 #### [facility] [address] [place], [address] Hemoglobin (Bld) [Mass/Vol] 12.1 g/dL Normal 12.0-15.0 [facility] Comment on above: Performed By: #### L 3890.6006, L509.8002, L100.0100, L501.0250 #### [facility] [address] [place], [address] IG% 1.000 High 0.0-0.9 [facility] Comment on above: Result Comment: IG% - Immature Granulocytes (promyelocytes, myelocytes and metamyelocytes) > 1% indicates that a LEFT SHIFT is Present. Performed By: #### L 3890.6006, L509.8002, L100.0100, L501.0250 #### [facility] [address] [place], [address] Lymphocytes/100 WBC (Bld) 16.9 % Low 19-41 [facility] Comment on above: Performed By: #### L 3890.6006, L509.8002, L100.0100, L501.0250 #### [facility] [address] [place], [address] MCH (RBC) [Entitic mass] 31.3 pg Normal 27.0-32.0 [facility] Comment on above: Performed By: #### L 3890.6006, L509.8002, L100.0100, L501.0250 #### [facility] [address] [place], [address] MCHC (RBC) [Mass/Vol] 33.9 g/dL Normal 32-[address] [facility] Comment on above: Performed By: #### L 3890.6006, L509.8002, L100.0100, L501.0250 #### [facility] [address] [place], [address] MCV (RBC) [Entitic vol] 92.2 fL Normal 81-99 [facility] Comment on above: Performed By: #### L 3890.6006, L509.8002, L100.0100, L501.0250 #### [facility] [address] [place], [address] Monocytes/100 WBC (Bld) 6.3 % Normal 0-10 [facility] Comment on above: Performed By: #### L 3890.6006, L509.8002, L100.0100, L501.0250 #### [facility] [address] [place], [address] Neutrophils/100 WBC (Bld) 74.9 % High 47-70 [facility] Comment on above: Performed By: #### L 3890.6006, L509.8002, L100.0100, L501.0250 #### [facility] [address] [place], [address] Nucleated RBC (Bld) [#/Vol] 0 10*3/uL Normal 0-5 [facility] Comment on above: Performed By: #### L 3890.6006, L509.8002, L100.0100, L501.0250 #### [facility] [address] [place], [address] Platelet mean volume (Bld) [Entitic vol] 10.4 fL Normal 6.2-12.0 [facility] Comment on above: Performed By: #### L 3890.6006, L509.8002, L100.0100, L501.0250 #### [facility] [address] [place], [address] Platelets (Bld) [#/Vol] 212 10*3/uL Normal 150-450 [facility] Comment on above: Performed By: #### L 3890.6006, L509.8002, L100.0100, L501.0250 #### [facility] [address] [place], [address] RBC (Bld) [#/Vol] 3.87 10*6/uL Low 4.2-5.4 [facility] Comment on above: Performed By: #### L 3890.6006, L509.8002, L100.0100, L501.0250 #### [facility] [address] [place], [address] RDW SD 46.4 fl High 35.1-43.9 [facility] Comment on above: Performed By: #### L 3890.6006, L509.8002, L100.0100, L501.0250 #### [facility] [address] [place], [address] WBC (Bld) [#/Vol] 10.1 10*3/uL Normal 4.4-11.0 [facility] Comment on above: Performed By: #### L 3890.6006, L509.8002, L100.0100, L501.0250 #### [facility] [address] [place], [address] Eosinophil percentageOrdered By: Jacinta Rojas on 04-05-2025 Eosinophils/100 WBC (Bld) 0.7 % 0-5 [facility] Erythrocyte distribution wid th ratioOrdered By: Jacinta Rojas on 04-05-2025 Erythrocyte distribution width (RBC) [Ratio] 13.7 % 11.6-14.6 [facility] Erythrocyte distribution wid th standard deviationOrdered By: Jacinta Rojas on 04-05-2025 Erythrocyte distribution width (RBC) [Ratio] 46.4 fl High 35.1-43.9 [facility] Glucose Challenge Gest 1H 50 haroldo 04-05-2025 GLU GEST 50g 1H 111 mg/dL Normal 70-140 [facility] Comment on above: Performed By: #### L 3890.6006, L509.8002, L100.0100, L501.0250 #### [facility] [address] [place], [address] Glucose measurement at 2 ana rs post-dose gestational glucose tolerance testOrdered By: Jacinta Rojas on 04-05-2025 Glucose [Mass/Vol] 111 mg/dL 70-140 [facility] HIVon 04-05-2025 HIV Non-Reactive Normal Nonreactive [facility] Comment on above: Result Comment: Non- Reactive Reactive Repeatedly reactive samples must be confirmed according to CDC recommended confirmatory algorithms. The subresults for either HIVAG or AHIV can be used as an aid in the selection of the confirmation algorithm for reactive samples. Send out specimens with Reactive results to [facility] for confirmation. Order the HIV antibody detection and differentiation: #[id number] Performed By: #### L 3890.6006, L509.8002, L100.0100, L501.0250 #### [facility] [address] [place], [address] Hematocrit Auto (Bld) [Volum e fraction]Ordered By: Jacinta Rojas on 04-05-2025 Hematocrit (Bld) [Volume fraction] 35.7 % Low 37-47 [facility] Hemoglobin measurementOrdere d By: Jacinta Rojas on 04-05-2025 Hemoglobin (Bld) [Mass/Vol] 12.1 g/dL 12.0-15.0 [facility] Immature granulocytes/100 WB C Auto (Bld)Ordered By: Jacinta Rojas on 04-05-2025 Immature granulocytes/100 WBC (Bld) 1.000 % High 0.0-0.9 [facility] Comment on above: IG% - Immature Granu locytes (promyelocytes, myelocytes and metamyelocytes) > 1% indicates that a LEFT SHIFT is Present. Laboratory - Chemistry and C hemistry - challengeOrdered By: Mariana Acosta on 04-05-2025 Glucose Ql (U) Negative [facility] Laboratory - UrinalysisOrder ed By: Mariana Acosta on 04-05-2025 Protein Ql (U) Negative [facility] MCV (mean corpuscular volume ) determinationOrdered By: Jacinta Rojas on 04-05-2025 MCV (RBC) [Entitic vol] 92.2 fL 81-99 [facility] Mean corpuscular hemoglobin (MCH) determinationOrdered By: Jacinta Rojas on 04-05-2025 MCH (RBC) [Entitic mass] 31.3 pg 27.0-32.0 [facility] Mean corpuscular hemoglobin concentration (MCHC) determinationOrdered By: Jacinta Rojas on 04-05-2025 MCHC (RBC) [Mass/Vol] 33.9 g/dL 32-[address] [facility] Mean platelet volume determi nationOrdered By: Jacinta Rojas on 04-05-2025 Platelet mean volume (Bld) [Entitic vol] 10.4 fL 6.2-12.0 [facility] Monocyte percentageOrdered B y: Jacinta Rojas on 04-05-2025 Monocytes/100 WBC (Bld) 6.3 % 0-10 [facility] Neutrophil percentageOrdered By: Jacinta Rojas on 04-05-2025 Neutrophils/100 WBC (Bld) 74.9 % High 47-70 [facility] No Panel InformationOrdered By: Jacinta Rojas on 04-05-2025 HIV (1&2) Antibody Non-Reactive Nonreactive [facility] Comment on above: Non-ReactiveReactive Repeatedly reactive samples must be confirmed according to CDC recommended confirmatory algorithms. The subresults for either HIVAG or AHIV can be used as an aid in the selection of the confirmation algorithm for reactive samples.Send out specimens with Reactive results to [facility] for confirmation.Order the HIV antibody detection and differentiation: #[id number] Nucleated red blood cell per centageOrdered By: Jacinta Rojas on 04-05-2025 Nucleated RBC/100 WBC (Bld) [Ratio] 0 % 0-5 [facility] Director Of Student Financial Services Office Visit Reporton 04-05-2025 Director Of Student Financial Services Office Visit Report [facility] [address], [address] [place] [address] OFFICE VISIT Date of Service: 04/05/25 MR#: [id number] Acct: [id number] Name: MICHELINE PERALES Rep #: [id number] : 2000 Provider: SANTIAGO leiva Age/Sex: 24/F [place] [facility] [place] Status: Signed Intake Vital Signs 01/18/25 13:04 03/13/25 13:20 04/05/25 09:58 04/05/25 10:02 Height 5 ft 1 in 5 ft 1 in 5 ft 1 in 5 ft 1 in Weight: 174 lb 4 oz BMI 32.9 BP 104/70 Intake Visit Reasons: 28 wk ob/glucose Chief Complaint: 28 Week OB/Glucose Therapeutic Radiologist Required: No Is patient in pain?: No [...] 1 current occupational status: unemployed current occupation: [employer] pets and animals: No history of recent travel: No sexually active: Yes Smoking Status: Never smoker second hand exposure: No alcohol intake: never substance use type: does not use diet: other well-balanced diet: daily or most days caffeine: No eating out: rarely or never during the past year weight has: remained stable what type of physical activity do you participate in: none radha/mu-ism: None seatbelt use: always do you feel safe at home: Yes additional social history: [employer] History 3 Elective abortions Hx [...] oz 1 (more content not included)... Normal [facility] Platelet countOrdered By: Azalea Rojas on 04-05-2025 Platelets (Bld) [#/Vol] 212 10*3/uL 150-450 [facility] RBC Auto (Bld) [#/Vol]Ordere d By: Jacinta Rojas on 04-05-2025 RBC (Bld) [#/Vol] 3.87 10*6/uL Low 4.2-5.4 [facility] Syphilis Antibodieson 2024 Syphilis Abs Non-Reactive Normal Nonreactive [facility] Comment on above: Performed By: #### L 3890.6006, L509.8002, L100.0100, L501.0250 #### [facility] [address] [place], [address] White blood cell (WBC) count Ordered By: Jacinta Rojas on 04-05-2025 WBC (Bld) [#/Vol] 10.1 10*3/uL 4.4-11.0 [facility] Laboratory - Chemistry and C hemistry - challengeOrdered By: Jacinta Rojas on 03-13-2025 Glucose Ql (U) Negative [facility] Laboratory - UrinalysisOrder ed By: Jacinta Rojas on 03-13-2025 Protein Ql (U) Negative [facility] Director Of Student Financial Services Office Visit Reporton 03-13-2025 Director Of Student Financial Services Office Visit Report [facility] [address], [address] [place] [address] OFFICE VISIT Date of Service: 03/13/25 MR#: [id number] Acct: [id number] Name: MICHELINE PERALES Rep #: [id number] : 2000 Provider: BRAN Forrester ams Age/Sex: 24/F [place] [facility] [place]: Signed Intake Vital Signs 01/18/25 13:04 02/16/25 09:48 03/13/25 13:20 Height 5 ft 1 in 5 ft 1 in 5 ft 1 in Weight: 171 lb 4 oz BMI 32.3 BP 107/71 Intake Visit Reasons: 25 wk ob Chief Complaint: 25wk OB Therapeutic Radiologist Required: No Is patient in pain?: No [...] 1 current occupational status: unemployed current occupation: [employer] pets and animals: No history of recent travel: No sexually active: Yes Smoking Status: Never smoker second hand exposure: No alcohol intake: never substance use type: does not use diet: other well-balanced diet: daily or most days caffeine: No eating out: rarely or never during the past year weight has: remained stable what type of physical activity do you participate in: none radha/mu-ism: None seatbelt use: always do you feel safe at home: Yes additional social history: [employer] History 3 Elective abortions Hx [...] Last Updated by: Christina Russell SRADITHYA HPI 25 wk ob Details: MICHELINE PERALES [...] 157 l (more content not included)... Normal [facility] Laboratory - Chemistry and C hemistry - challengeOrdered By: Mariana [place] on 02-16-2025 Glucose Ql (U) Negative [facility] Laboratory - UrinalysisOrder ed By: Mariana [place] on 02-16-2025 Protein Ql (U) Negative [facility] Director Of Student Financial Services Office Visit Reporton 02-16-2025 Director Of Student Financial Services Office Visit Report [facility] [address], [address] [place] [address] OFFICE VISIT Date of Service: 02/16/25 MR#: [id number] Acct: [id number] Name: MICHELINE PERALES Rep #: [id number] : 2000 Provider: SANTIAGO leiva Age/Sex: 24/F [place] [facility] [place]: Signed Intake Vital Signs 01/18/25 13:04 02/16/25 09:48 Height 5 ft 1 in 5 ft 1 in Weight: 165 lb 4 oz BMI 31.2 BP 114/64 Intake Visit Reasons: 21 wk ob Chief Complaint: 21 Week OB Therapeutic Radiologist Required: No Is patient in pain?: No [...] 1 current occupational status: unemployed current occupation: [employer] pets and animals: No history of recent travel: No sexually active: Yes Smoking Status: Never smoker second hand exposure: No alcohol intake: never substance use type: does not use diet: other well-balanced diet: daily or most days caffeine: No eating out: rarely or never during the past year weight has: remained stable what type of physical activity do you participate in: none radha/mu-ism: None seatbelt use: always do you feel safe at home: Yes additional social history: [employer] History 3 Elective abortions Hx [...] 12/17/21 Last Updated by: Christina KING HPI 21 wk ob Details: MICHELINE PERALES [...] -???-???-???-???-???-?? ? (more content not included)... Normal [facility] Laboratory - Chemistry and C hemistry - challengeOrdered By: Mariana Acosta on 01-18-2025 Glucose Ql (U) Negative [facility] Laboratory - UrinalysisOrder ed By: Mariana Acosta on 01-18-2025 Protein Ql (U) Negative [facility] Director Of Student Financial Services Office Visit Reporton 01-18-2025 Director Of Student Financial Services Office Visit Report [facility] [address], [address] [place] [address] OFFICE VISIT Date of Service: 01/18/25 MR#: [id number] Acct: [id number] Name: MICHELINE PERALES Rep #: [id number] : 2000 Provider: SANTIAGO leiva Age/Sex: 24/F [place] [facility] [place]: Signed Intake Vital Signs 11/25/24 13:44 12/22/24 10:15 01/18/25 13:04 Height 5 ft 1 in 5 ft 1 in 5 ft 1 in Weight: 160 lb 6 oz BMI 30.2 BP 110/60 Intake Visit Reasons: 17 wk ob Chief Complaint: 17 Week OB Therapeutic Radiologist Required: No Is patient in pain?: No [...] 1 current occupational status: unemployed current occupation: [employer] pets and animals: No history of recent travel: No sexually active: Yes Smoking Status: Never smoker second hand exposure: No alcohol intake: never substance use type: does not use diet: other well-balanced diet: daily or most days caffeine: No eating out: rarely or never during the past year weight has: remained stable what type of physical activity do you participate in: none radha/mu-ism: None seatbelt use: always do you feel safe at home: Yes additional social history: [employer] History 3 Elective abortions Hx Para [...] Last Updated by: Christina Russell SRADITHYA HPI 17 wk ob Details: MICHELINE PERALES [...] US 12/22/24 (more content not included)... Normal [facility] Misc.on 12-29-2024 [facility] Misc. 4 COMMENT Normal . [facility] Comment on above: Order Comment: [id number] TSH R AB SERUM FZ Result Comment: Test Ordered: [id number] TSH Receptor Antibody (TBII) TSH Receptor Antibody (TBII) <0.3 U/L ES Reference Range: . Reference Range: Antibody Titer: <1.0 U/L = Negative 1.1 - 1.5 U/L = Equivocal >1.5 U/L = Positive Performed at: [facility] [address] [place] [id number] Hospice Nurse: Steve Leslie MD, Phone: [phone] Performed at: - [facility] [id number] Hospice Nurse: Eleazar Gr PhD, Phone: [phone] Performed By: #### L 3410.9998 #### [facility] [address] [place], [place], [address] Absolute lymphocyte countOrd ered By: Rocio Persaud on 12-22-2024 Lymphocytes Auto (Unsp spec) [#/Vol] 1.49 10*3/uL 0.83-4.51 [facility] Absolute neutrophil countOrd ered By: Rocio Persaud on 12-22-2024 Neutrophils (Bld) [#/Vol] 6.0 10*3/uL 2.0-7.7 [facility] Automated lymphocyte count a s percentage of total leukocytesOrdered By: Rocio Persaud on 12-22-2024 Lymphocytes/100 WBC Auto (Unsp spec) 18.2 % Low 19-41 [facility] Basophil percentageOrdered B y: Rocio Persaud on 12-22-2024 Basophils/100 WBC (Bld) 0.2 % 0-1 [facility] CBC W/Diff, Automatedon 12-06 Absolute Lymph 1.49 X10 3/uL Normal 0.83-4.51 [facility] Comment on above: Performed By: #### B TS, L509.8002, L509.4006, L3890.6301, L3890.6102, L501.9520, L506.0400, L3890.6006, L100.0100 ####[facility] [address] [place], [place], [address] Absolute Neut 6.0 X10 3/uL Normal 2.0-7.7 [facility] Comment on above: Performed By: #### B TS, L509.8002, L509.4006, L3890.6301, L3890.6102, L501.9520, L506.0400, L3890.6006, L100.0100 ####[facility] [address] [place], [address] Basophils/100 WBC (Bld) 0.2 % Normal 0-1 [facility] Comment on above: Performed By: #### B TS, L509.8002, L509.4006, L3890.6301, L3890.6102, L501.9520, L506.0400, L3890.6006, L100.0100 ####[facility] [address] [place], [address] Eosinophils/100 WBC (Bld) 2.0 % Normal 0-5 [facility] Comment on above: Performed By: #### B TS, L509.8002, L509.4006, L3890.6301, L3890.6102, L501.9520, L506.0400, L3890.6006, L100.0100 ####[facility] [address] [place], [address] Erythrocyte distribution width (RBC) [Ratio] 13.5 % Normal 11.6-14.6 [facility] Comment on above: Performed By: #### B TS, L509.8002, L509.4006, L3890.6301, L3890.6102, L501.9520, L506.0400, L3890.6006, L100.0100 ####[facility] [address] [place], [address] Hematocrit (Bld) [Volume fraction] 37.8 % Normal 37-47 [facility] Comment on above: Performed By: #### B TS, L509.8002, L509.4006, L3890.6301, L3890.6102, L501.9520, L506.0400, L3890.6006, L100.0100 ####[facility] [address] [place], [address] Hemoglobin (Bld) [Mass/Vol] 13.2 g/dL Normal 12.0-15.0 [facility] Comment on above: Performed By: #### B TS, L509.8002, L509.4006, L3890.6301, L3890.6102, L501.9520, L506.0400, L3890.6006, L100.0100 ####[facility] [address] [place], [address] IG% 0.500 Normal 0.0-0.9 [facility] Comment on above: Result Comment: IG% - Immature Granulocytes (promyelocytes, myelocytes and metamyelocytes) > 1% indicates that a LEFT SHIFT is Present. Performed By: #### B TS, L509.8002, L509.4006, L3890.6301, L3890.6102, L501.9520, L506.0400, L3890.6006, L100.0100 ####[facility] [address] [place], [address] Lymphocytes/100 WBC (Bld) 18.2 % Low 19-41 [facility] Comment on above: Performed By: #### B TS, L509.8002, L509.4006, L3890.6301, L3890.6102, L501.9520, L506.0400, L3890.6006, L100.0100 ####[facility] [address] [place], [address] MCH (RBC) [Entitic mass] 30.5 pg Normal 27.0-32.0 [facility] Comment on above: Performed By: #### B TS, L509.8002, L509.4006, L3890.6301, L3890.6102, L501.9520, L506.0400, L3890.6006, L100.0100 ####[facility] [address] [place], [address] MCHC (RBC) [Mass/Vol] 34.9 g/dL Normal 32-[address] [facility] Comment on above: Performed By: #### B TS, L509.8002, L509.4006, L3890.6301, L3890.6102, L501.9520, L506.0400, L3890.6006, L100.0100 ####[facility] [address] [place], [address] MCV (RBC) [Entitic vol] 87.3 fL Normal 81-99 [facility] Comment on above: Performed By: #### B TS, L509.8002, L509.4006, L3890.6301, L3890.6102, L501.9520, L506.0400, L3890.6006, L100.0100 ####[facility] [address] [place], [address] Monocytes/100 WBC (Bld) 5.7 % Normal 0-10 [facility] Comment on above: Performed By: #### B TS, L509.8002, L509.4006, L3890.6301, L3890.6102, L501.9520, L506.0400, L3890.6006, L100.0100 ####[facility] [address] [place], [address] Neutrophils/100 WBC (Bld) 73.4 % High 47-70 [facility] Comment on above: Performed By: #### B TS, L509.8002, L509.4006, L3890.6301, L3890.6102, L501.9520, L506.0400, L3890.6006, L100.0100 ####[facility] [address] [place], [address] Nucleated RBC (Bld) [#/Vol] 0 10*3/uL Normal 0-5 [facility] Comment on above: Performed By: #### B TS, L509.8002, L509.4006, L3890.6301, L3890.6102, L501.9520, L506.0400, L3890.6006, L100.0100 ####[facility] [address] [place], [address] Platelet mean volume (Bld) [Entitic vol] 10.7 fL Normal 6.2-12.0 [facility] Comment on above: Performed By: #### B TS, L509.8002, L509.4006, L3890.6301, L3890.6102, L501.9520, L506.0400, L3890.6006, L100.0100 ####[facility] [address] [place], [address] Platelets (Bld) [#/Vol] 245 10*3/uL Normal 150-450 [facility] Comment on above: Performed By: #### B TS, L509.8002, L509.4006, L3890.6301, L3890.6102, L501.9520, L506.0400, L3890.6006, L100.0100 ####[facility] [address] [place], [address] RBC (Bld) [#/Vol] 4.33 10*6/uL Normal 4.2-5.4 [facility] Comment on above: Performed By: #### B TS, L509.8002, L509.4006, L3890.6301, L3890.6102, L501.9520, L506.0400, L3890.6006, L100.0100 ####[facility] [address] [place], [address] RDW SD 43.2 fl Normal 35.1-43.9 [facility] Comment on above: Performed By: #### B TS, L509.8002, L509.4006, L3890.6301, L3890.6102, L501.9520, L506.0400, L3890.6006, L100.0100 ####[facility] [address] [place], [address] WBC (Bld) [#/Vol] 8.2 10*3/uL Normal 4.4-11.0 [facility] Comment on above: Performed By: #### B TS, L509.8002, L509.4006, L3890.6301, L3890.6102, L501.9520, L506.0400, L3890.6006, L100.0100 ####[facility] [address] [place], [address] Eosinophil percentageOrdered By: Rocio Persaud on 12-22-2024 Eosinophils/100 WBC (Bld) 2.0 % 0-5 [facility] Erythrocyte distribution wid th (RBC) [Ratio]Ordered By: Rocio Persaud on 12-22-2024 Erythrocyte distribution width (RBC) [Entitic vol] 43.2 fL 35.1-43.9 [facility] Erythrocyte distribution wid th ratioOrdered By: Rocio Persaud on 12-22-2024 Erythrocyte distribution width (RBC) [Ratio] 13.5 % 11.6-14.6 [facility] Erythrocyte distribution wid th standard deviationOrdered By: Rocio Persaud on 12-22-2024 Erythrocyte distribution width (RBC) [Ratio] 43.2 fl 35.1-43.9 [facility] HBV surface Ag Ql (S)Ordered By: Rocio Persaud on 12-22-2024 Hepatitis B Surface Antigen Non-Reactive Nonreactive [facility] Comment on above: Reactive: Presumptiv e evidence of HBV. Repeatedly reactive samples must be confirmed using a neutralization test (Elecsys HBsAg Confirmatory Test)Non-Reactive: HBsAg not detected; does not exclude the possibility of exposure to HBV HIVon 12-22-2024 HIV Non-Reactive Normal Nonreactive [facility] Comment on above: Result Comment: Non- Reactive Reactive Repeatedly reactive samples must be confirmed according to CDC recommended confirmatory algorithms. The subresults for either HIVAG or AHIV can be used as an aid in the selection of the confirmation algorithm for reactive samples. Send out specimens with Reactive results to [facility] for confirmation. Order the HIV antibody detection and differentiation: lc#[id number] Performed By: #### B TS, L509.8002, L509.4006, L3890.6301, L3890.6102, L501.9520, L506.0400, L3890.6006, L100.0100 ####[facility] [address] [place], [address] Hematocrit Auto (Bld) [Volum e fraction]Ordered By: Rocio Persaud on 12-22-2024 Hematocrit (Bld) [Volume fraction] 37.8 % 37-47 [facility] Hemoglobin measurementOrdere d By: Rocio Persaud on 12-22-2024 Hemoglobin (Bld) [Mass/Vol] 13.2 g/dL 12.0-15.0 [facility] Hepatitis C Antibodyon 12-22 Hepatitis C Ab Non-Reactive Normal Nonreactive [facility] Comment on above: Result Comment: Reac tive: Presumptive evidence of antibodies to HCV. Follow CDC recommendations for supplemental testing. Non-Reactive: Antibodies to HCV were not detected; does not exclude the possibility of exposure to HCV Reactive Results are presumptive evidence of antibodies to HCV. Follow CDC recommendations for supplemental testing. Order confirmation testing: HCV Quant by PCR testing - HCVPCR lc#[id number] Non Reactive: < 0.8 Equivocal: >/= 0.8 to < 1.0 Reactive: >/= 1.0 The CDC requires that a reactive/equivocal HCV antibody result be sent out for confirmation. HCV Quant by PCR testing. Performed By: #### B TS, L509.8002, L509.4006, L3890.6301, L3890.6102, L501.9520, L506.0400, L3890.6006, L100.0100 ####[facility] [address] [place], [place], [address] Hepatitis C antibodyOrdered By: Rocio Persaud on 12-22-2024 Hepatitis C Antibody Non-Reactive Nonreactive [facility] Comment on above: Reactive: Presumptiv e evidence of antibodies to HCV. Follow CDC recommendations for supplemental testing.Non-Reactive: Antibodies to HCV were not detected; does not exclude the possibility of exposure to HCVReactive Results are presumptive evidence of antibodies to HCV. Follow CDC recommendations for supplemental testing.Order confirmation testing: HCV Quant by PCR testing - HCVPCR lc#[id number] Non Reactive: < 0.8 Equivocal: >/= 0.8 to < 1.0 Reactive: >/= 1.0The [facility] requires that a reactive/equivocal HCV antibody result be sent out for confirmation. HCV Quant by PCR testing. Immature granulocytes/100 WB C Auto (Bld)Ordered By: Rocio Persaud on 12-22-2024 Immature granulocytes/100 WBC (Bld) 0.500 % 0.0-0.9 [facility] Comment on above: IG% - Immature Granu locytes (promyelocytes, myelocytes and metamyelocytes) > 1% indicates that a LEFT SHIFT is Present. L3890.6102on 12-22-2024 HEP B Surf Ag Non-Reactive Normal Nonreactive [facility] Comment on above: Result Comment: Reac tive: Presumptive evidence of HBV. Repeatedly reactive samples must be confirmed using a neutralization test (Elecsys HBsAg Confirmatory Test) Non-Reactive: HBsAg not detected; does not exclude the possibility of exposure to HBV Performed By: #### B TS, L509.8002, L509.4006, L3890.6301, L3890.6102, L501.9520, L506.0400, L3890.6006, L100.0100 ####[facility] [address] [place], [address] L509.4006on 12-22-2024 Rubella IgG REAC Normal Nonreactive [facility] Comment on above: Result Comment: Anti body Result: Interpretation Non-Reactive: Non-Immune Reactive: Immune The following results were obtained with the Elecsys Rubella IgG assay. Results from assays of other manufacturers cannot be used interchangeably. Performed By: #### B TS, L509.8002, L509.4006, L3890.6301, L3890.6102, L501.9520, L506.0400, L3890.6006, L100.0100 ####[facility] [address] [place], [address] Laboratory - Chemistry and C hemistry - challengeOrdered By: Bambi Quiroz on 12-22-2024 Glucose Ql (U) Negative [facility] Laboratory - Microbiology an d Antimicrobial susceptibilityOrdered By: Rocio Persaud on 12-22-2024 HBV surface Ag Ql (S) Non-Reactive Nonreactive [facility] Comment on above: Reactive: Presumptiv e evidence of HBV. Repeatedly reactive samples must be confirmed using a neutralization test (Elecsys HBsAg Confirmatory Test)Non-Reactive: HBsAg not detected; does not exclude the possibility of exposure to HBV Laboratory - UrinalysisOrder ed By: Bambi Quiroz on 12-22-2024 Protein Ql (U) Negative [facility] Lymphocytes Auto (Unsp spec) [#/Vol]Ordered By: Rocio Persaud on 12-22-2024 Lymphocytes (Bld) [#/Vol] 1.49 10*3/uL 0.83-4.51 [facility] Lymphocytes/100 WBC Auto (Un sp spec)Ordered By: Rocio Persaud on 12-22-2024 Lymphocytes/100 WBC (Bld) 18.2 % Low 19-41 [facility] MCV (mean corpuscular volume ) determinationOrdered By: Rocio Persaud on 12-22-2024 MCV (RBC) [Entitic vol] 87.3 fL 81-99 [facility] Mean corpuscular hemoglobin (MCH) determinationOrdered By: Rocio Persaud on 12-22-2024 MCH (RBC) [Entitic mass] 30.5 pg 27.0-32.0 [facility] Mean corpuscular hemoglobin concentration (MCHC) determinationOrdered By: Rocio Persaud on 12-22-2024 MCHC (RBC) [Mass/Vol] 34.9 g/dL 32-[address] [facility] Mean platelet volume determi nationOrdered By: Rocio Dempseyluis on 12-22-2024 Platelet mean volume (Bld) [Entitic vol] 10.7 fL 6.2-12.0 [facility] Monocyte percentageOrdered B y: Rocio Motaaisha on 12-22-2024 Monocytes/100 WBC (Bld) 5.7 % 0-10 [facility] Neutrophil percentageOrdered By: Rocio Motaaisha on 12-22-2024 Neutrophils/100 WBC (Bld) 73.4 % High 47-70 [facility] No Panel InformationOrdered By: Rocio Dempseyluis on 12-22-2024 HIV (1&2) Antibody Non-Reactive Nonreactive [facility] Comment on above: Non-ReactiveReactive Repeatedly reactive samples must be confirmed according to CDC recommended confirmatory algorithms. The subresults for either HIVAG or AHIV can be used as an aid in the selection of the confirmation algorithm for reactive samples.Send out specimens with Reactive results to [facility] for confirmation.Order the HIV antibody detection and differentiation: lc#[id number] Nucleated red blood cell per centageOrdered By: Rocio Motaaisha on 12-22-2024 Nucleated RBC/100 WBC (Bld) [Ratio] 0 % 0-5 [facility] Director Of Student Financial Services Office Visit Reporton 12-22-2024 Director Of Student Financial Services Office Visit Report [facility][1]'s [address], [address] [place] [address] OFFICE VISIT Date of Service: 12/22/24 MR#: [id number] Acct: [id number] Name: MICHELINE PERALES Rep #: [id number] : 2000 Provider: Dr. Bambi Abrams DO Age/Sex: 24/F [place] [facility] Status: Signed Intake Vital Signs 05/13/24 08:00 11/25/24 13:44 12/22/24 10:15 Height 5 ft 1 in 5 ft 1 in 5 ft 1 in Weight: 157 lb 4 oz BMI 29.7 BP 102/69 Intake Visit Reasons: 13 wk OB Chief Complaint: 13 Week OB Therapeutic Radiologist Required: No Is patient in pain?: No [...] 1 current occupational status: unemployed current occupation: [employer] pets and animals: No history of recent travel: No sexually active: Yes Smoking Status: Never smoker second hand exposure: No alcohol intake: never substance use type: does not use diet: other well-balanced diet: daily or most days caffeine: No eating out: rarely or never during the past year weight has: remained stable what type of physical activity do you participate in: none radha/mu-ism: None seatbelt use: always do you feel safe at home: Yes additional social history: [employer] History 3 Elective abortions Hx [...] Last Updated by: Christina Russell SRADITHYA HPI 13 wk OB Details: MICHELINE PERALES [...] previous US (more content not included)... Normal [facility] Platelet countOrdered By: Cony Persaud on 12-22-2024 Platelets (Bld) [#/Vol] 245 10*3/uL 150-450 [facility] RBC Auto (Bld) [#/Vol]Ordere d By: Rocio Persaud on 12-22-2024 RBC (Bld) [#/Vol] 4.33 10*6/uL 4.2-5.4 [facility] Rubella immune status determ ination by IgG antibody assayOrdered By: Rocio Persaud on 12-22-2024 Rubella IgG Antibody REAC Nonreactive [facility] Comment on above: Antibody Result: Int erpretationNon-Reactive: Non-ImmuneReactive: ImmuneThe following results were obtained with the [employer]ys Rubella IgG assay. Results from assays of other manufacturers cannot be used interchangeably. Syphilis Antibodieson 2024 Syphilis Abs Non-Reactive Normal Nonreactive [facility] Comment on above: Performed By: #### B TS, L509.8002, L509.4006, L3890.6301, L3890.6102, L501.9520, L506.0400, L3890.6006, L100.0100 ####[facility] [address] [place], [address] T. pallidum abOrdered By: Cony Persaud on 12-22-2024 Syphilis Total Antibody Non-Reactive Nonreactiv e [facility] T4 Free Directon 12-22-2024 T4 FREE DIRECT 1.00 ng/dL Normal 0.76-1.46 [facility] Comment on above: Performed By: #### B TS, L509.8002, L509.4006, L3890.6301, L3890.6102, L501.9520, L506.0400, L3890.6006, L100.0100 ####[facility] [address] [place], [place], [address] T4 freeOrdered By: Rocio herrera on 12-22-2024 Free T4 [Mass/Vol] 1.00 ng/dL 0.76-1.46 [facility] TSH DL <= 0.005 mIU/L QnOrde red By: Rocio Persaud on 12-22-2024 Thyroid Stimulating Hormone (TSH) 3.910 uIU/mL 0.300-4.200 [facility] TSH Qn 3.910 uIU/mL 0.300-4.200 [facility] Thyroid Stim Hormone (TSH)on 12-22-2024 TSH 3.910 uIU/mL Normal 0.300-4.200 [facility] Comment on above: Performed By: #### B TS, L509.8002, L509.4006, L3890.6301, L3890.6102, L501.9520, L506.0400, L3890.6006, L100.0100 ####[facility] [address] [place], [address] Type AND Screenon 12-22-2024 Ab SCREEN GEL Negative Normal [facility] Comment on above: Order Comment: PN Performed By: #### B TS, L509.8002, L509.4006, L3890.6301, L3890.6102, L501.9520, L506.0400, L3890.6006, L100.0100 ####[facility] [address] [place], [place], [address] White blood cell (WBC) count Ordered By: Rocio Persaud on 12-22-2024 WBC (Bld) [#/Vol] 8.2 10*3/uL 4.4-11.0 [facility] PAP I-G w/rfx hrHPV-Aptimaon 11-30-2024 ADEQ Comment Normal . [facility] Comment on above: Order Comment: Speci men Comment: [id number] Comment: Source.............CervixSpecimen Comment: Other..............Specimen Comment: No. of containers..01 ThinPrep Vial Result Comment: Sati sfactory for evaluation. Endocervical and/or squamous metaplastic cells (endocervical component) are present. Performed By: #### L 7000.1800, L7400.0353, M100.2200 ####[facility] [address] [place], [address] COMM . Normal . [facility] Comment on above: Order Comment: Speci men Comment: [id number] Comment: Source.............CervixSpecimen Comment: Other..............Specimen Comment: No. of containers..01 ThinPrep Vial Performed By: #### L 7000.1800, L7400.0353, M100.2200 ####[facility] [address] [place], [place], [address] COMMENT Comment Normal . [facility] Comment on above: Order Comment: Speci men Comment: [id number] Comment: Source.............CervixSpecimen Comment: Other..............Specimen Comment: No. of containers..01 ThinPrep Vial Result Comment: This liquid based ThinPrep(R) pap test was screened with the use of an image guided system. Performed By: #### L 7000.1800, L7400.0353, M100.0 ####[facility] [address] [place], [address] DIAG Comment Normal . [facility] Comment on above: Order Comment: Speci men Comment: [id number] Comment: Source.............CervixSpecimen Comment: Other..............Specimen Comment: No. of containers..01 ThinPrep Vial Result Comment: NEGA TIVE FOR INTRAEPITHELIAL LESION OR MALIGNANCY. Performed By: #### L 7000.1800, L7400.0353, M100.0 ####[facility] [address] [place], [address] HPV RFLX Comment Normal . [facility] Comment on above: Order Comment: Speci men Comment: [id number] Comment: Source.............CervixSpecimen Comment: Other..............Specimen Comment: No. of containers..01 ThinPrep Vial Result Comment: The HPV DNA reflex criteria were not met with this specimen result therefore, no HPV testing was performed. Performed at: - [facility] [address] [id number] Hospice Nurse: Martin Meadows MD, Phone: [phone] Performed at: [facility] [address] [id number] Hospice Nurse: Ashley Darling MD, Phone: [phone] Performed By: #### L 7000.1800, L7400.0353, M100.2200 ####[facility] [address] [place], [address] PAPSMR Comment Normal . [facility] Comment on above: Order Comment: Speci men Comment: [id number] Comment: Source.............CervixSpecimen Comment: Other..............Specimen Comment: No. of [...] occur. Performed By: #### L 7000.1800, L7400.0353, M100.2200 ####[facility] [address] [place], [address] PERFORM Comment Normal . [facility] Comment on above: Order Comment: Speci men Comment: [id number] Comment: Source.............CervixSpecimen Comment: Other..............Specimen Comment: No. of containers..01 ThinPrep Vial Result Comment: Laquita Martinez, Parts Consultant (ASCP) Performed By: #### L 7000.1800, L7400.0353, M100.2200 ####[facility] [address] [place], [address] Chlamydia/GC KIM aptimaon CHLAMY,NUC ACID Negative Normal Negative [facility] Comment on above: Performed By: #### L 7000.1800, L7400.0353, M100.2200 ####[facility] [address] [place], [address] GC BY NUC ACID Negative Normal Negative [facility] Comment on above: Result Comment: Perf ormed at: =G - [facility] [address] [id number] Hospice Nurse: Ashley Darling MD, Phone: [phone] Performed By: #### L 7000.1800, L7400.0353, M100.2200 ####[facility] [address] [place], [address] Urine Cultureon 11-26-2024 URC Culture exhibits no growth. Normal [facility] Comment on above: Performed By: #### L 7000.1800, L7400.0353, M100.2200 ####[facility] [address] [place], [address] C. trachomatis rRNA KIM+prob e Ql (Unsp spec)Ordered By: Rocio Persaud on 11-25-2024 Chlamydia DNA (KIM) Negative Negative [facility] Cervical or vagninal specime n microscopic examination by cytology stain (reported asOrdered By: Rocio Persaud on 11-25-2024 Cytology report Cyto stain Doc (Cvx/Vag) Comment . [facility] Comment on above: The Pap smear is [...] rRNA KIM+probe Ql (Unsp spec) Negative Negative [facility] Remote Advisor Cyto stain Nom (C vx/Vag) [ID]Ordered By: Rocio Persaud on 11-25-2024 Pap Smear Performed By Comment . [facility] Comment on above: Luda Martinez, Parts Consultant (ASCP) Cytology report Cyto stain D oc (Cvx/Vag)Ordered By: Rocio Persaud on 11-25-2024 Thin Prep Pap Smear Comment . [facility] Comment on above: The Pap smear is a s creening test designed to aid in thedetection of premalignant and malignant conditions of theuterine cervix. It is not a diagnostic procedure andshould not be used as the sole means of detecting cervicalcancer. Both false-positive and false-negative reports dooccur. Image-guided ThinPrep PapOrd ered By: Rocio Persaud on 11-25-2024 Pap Smear Note Comment . [facility] Comment on above: This liquid based Th inPrep(R) pap test was screened withthe use of an image guided system. Image-guided liquid-based Pa pOrdered By: Rocio Persaud on 11-25-2024 Pap Smear Diagnosis Comment . [facility] Comment on above: NEGATIVE FOR INTRAEP ITHELIAL LESION OR MALIGNANCY. Image-guided liquid-based ce rvical Pap w high-risk HPV+reflex to HPV 16+18Ordered By: Rocio Persaud on 11-25-2024 Human Papillomavirus Screen Comment . [facility] Comment on above: The HPV DNA reflex c riteria were not met with this specimenresult therefore, no HPV testing was performed.Performed at: [facility] [address] [id number] Director: Martin Meadows MD, Phone: [phone] at: [address] [id number] Director: Ashley Darling MD, Phone: [phone] Laboratory - CytologyOrdered By: Rocio Persaud on 11-25-2024 Remote Advisor Cyto stain Nom (Cvx/Vag) [ID] Comment . [facility] Comment on above: Luda Martinez, Parts Consultant (ASCP) Laboratory - Miscellaneous t estsOrdered By: Rocio Persaud on 11-25-2024 Service comment (Unsp spec) [Interp] . . [facility] Neisseria gonorrhoeae nuclei c acid detection by amplified probe techniqueOrdered By: Rocio Persaud on 11-25-2024 N. gonorrhoeae DNA KIM+probe Ql (Unsp spec) Negative Negative [facility] Comment on above: Performed at: = - [address] [id number] Director: Ashley Darling MD, Phone: [phone] No Panel InformationOrdered By: Rocio Persaud on 11-25-2024 Pap Smear Specimen Adequacy Comment . [facility] Comment on above: Satisfactory for gen luation. Endocervical and/or squamous metaplasticcells (endocervical component) are present. Director Of Student Financial Services Office Visit Reporton 11-25-2024 Director Of Student Financial Services Office Visit Report [facility] [address], [address] [place] [address] OFFICE VISIT Date of Service: 11/25/24 MR#: [id number] Acct: [id number] Name: MICHELINE PERALES Rep #: [id number] : 2000 Provider: Dr. Rocio hoang MD Age/Sex: 24/F [place] [facility] [place] Status: Signed Intake Vital Signs 05/13/24 08:00 11/25/24 13:44 Height 5 ft 1 in 5 ft 1 in Weight: 159 lb 4 oz BMI 30.0 BP 111/76 Intake Visit Reasons: New OB, unsure LMP, hx m/c Therapeutic Radiologist Required: No Is patient in pain?: No [...] 1 current occupational status: unemployed current occupation: [employer] pets and animals: No history of recent travel: No sexually active: Yes Smoking Status: Never smoker second hand exposure: No alcohol intake: never substance use type: does not use diet: other well-balanced diet: daily or most days caffeine: No eating out: rarely or never during the past year weight has: remained stable what type of physical activity do you participate in: none radha/mu-ism: None seatbelt use: always do you feel safe at home: Yes additional social history: [employer] History 3 Elective abortions Hx [...] 150 -???-? (more content not included)... Normal [facility] Service comment (Unsp spec) [Interp]Ordered By: Rocio Persaud on 11-25-2024 Pap Smear Comment (3) . . [facility] Urine cultureOrdered By: Rai Persaud on 11-25-2024 Bacteria identified Cx Nom (U) Culture exhibits no growth. [facility] Transvaginal w/Preg USon Transvaginal w/Preg [facility] Imaging Services [address] [place], [place] [id number] Transvaginal w/Preg MR#: [id number] Acct: [id number] Name: MICHELINE PERALES Rep #: [id number] : 2000 F 24 From: Casper Restrepo MD PCP: LUIS F Leiva Status: REG CLI Study: Transvaginal w/Preg US Date of Exam: 11/02/24 Exam# [id number] Ordering Dr: Rocio Persaud PROCEDURE: TRANSVAGINAL W/PREG US REASON FOR EXAM: Dating. COMPARISON: None. FINDINGS The uterus measures 9.6 x 6.9 x 4.8 cm. No fibroids. A gestational sac is present which dates 6 weeks and 2 days. The yolk sac is visualized. An embryo is visualized with a heart rate of 108. [place]-rump length measures 6 weeks and 2 days. [...] Single live intrauterine as above. Reading Location: [place] [address] CC: Dr. Rocio Persaud MD; LUIS F Leiva Telecommunications Engineer: Signed Normal [facility] HCG ( test) QlOrder ed By: Rocio Persaud on 10-27-2024 Human Chorionic Gonadotropin, Quant 2617 mIU/mL High <4 [facility] Comment on above: hCG levels with Gest ational AgeGestational Age hCG mIU/mL (IU/L)0.2 - 1 week 5 - 501-2 weeks 50 - 5002-3 weeks 100 - 40102-2 weeks 500 - 615870-0 weeks 1000 - 906296-5 weeks 09159 - 100,0006-8 weeks 07195 - 200,0002-3 months 80511 - 100,000 Serum human chorionic gonado tropin detection for pregnancyOrdered By: Rocio Persaud on 10-27-2024 HCG ( test) Ql 2617 mIU/mL High <4 [facility] Comment on above: hCG levels with Gest ational AgeGestational Age hCG mIU/mL (IU/L)0.2 - 1 week 5 - 501-2 weeks 50 - 5002-3 weeks 100 - 16354-2 weeks 500 - 042140-1 weeks 1000 - 442827-6 weeks 64262 - 100,0006-8 weeks 59347 - 200,0002-3 months 53707 - 100,000 hCG Titer Quant., Serumon HCG QUANT. 2617 mIU/mL High 1-3 [facility] Comment on above: Result Comment: hCG levels with Gestational Age Gestational Age hCG mIU/mL (IU/L) 0.2 - 1 week 5 - 50 1-2 weeks 50 - 500 2-3 weeks 100 - 5000 3-4 weeks 500 - 17208 4-5 weeks 1000 - 12287 5-6 weeks 55630 - 100,000 6-8 weeks 07156 - 200,000 2-3 months 23296 - 100,000 Performed By: #### L 700.8000 ####[facility] [id number] [place], [address] T3, FREEon 02-11-2024 Free T3 [Mass/Vol] 3.4 pg/mL Normal 2.3-4.2 [facility] Comment on above: Performed By: #### 3 4429, 866, 899 #### [facility] [address] [address] Biomedical [employer] Supervisor: Prakash Banegas MD T4, FREEon 02-11-2024 Free T4 [Mass/Vol] 1.3 ng/dL Normal 0.8-1.8 [facility] Comment on above: Performed By: #### 3 4429, 866, 899 #### [facility] [address], [address] [place] [id number] Biomedical Engineering Supervisor: Prakash Banegas MD TSHon 02-11-2024 TSH Qn 2.56 m[IU]/L Normal [facility] Comment on above: Result Comment: Refe rence Range > or = 20 Years 0.40-4.50 Ranges First trimester 0.26-2.66 Second trimester 0.55-2.73 Third trimester 0.43-2.91 Performed By: #### 3 8237, 116, 899 #### [facility] [address], [address] [place] [address] Biomedical Engineering Supervisor: Prakash Banegas MD Laboratory - Chemistry and C hemistry - challengeon 02-10-2024 Free T3 [Mass/Vol] 3.4 pg/mL Normal 2.3 - 4.2 pg/mL [facility], [facility].; [facility] Free T4 [Mass/Vol] 1.3 ng/dL Normal 0.8 - 1.8 ng/dL [facility], [facility].; [facility], [facility]. TSH Qn 2.56 m[IU]/L Normal [facility], [facility]. Serum or plasma progesterone measurement (mass/volume)Ordered By: Bisi Miller on 10-26-2023 Progesterone [Mass/Vol] 0.35 ng/mL See Comment [facility] Comment on above: Progesterone Referen ce Table: UNITS Female: Follicular 0.15 - 1.40 ng/mL Luteal 3.34 - 25.56 ng/mL Mid-luteal 4.44 - 28.03 ng/mL Postmenopausal 0.0 - 0.73 ng/mL : 1st Trimester 11.22 - 90.00 ng/mL 2nd Trimester 25.55 - 89.40 ng/mL 3rd Trimester 48.40 -422.50 ng/mL No Panel InformationOrdered By: Bisi Miller on 10-09-2023 Follicle Stimulating Hormone 5.9 mIU/mL [facility] Comment on above: NORMAL REFERENCE RAN GES FEMALE FOLLICULAR 2.3 - 12.6 mIU/mL MID-CYCLE PEAK 5.2 - 17.5 mIU/mL LUTEAL 1.7 - 12.9 mIU/mL POST-MENOPAUSAL ON MHT 5.9 - 72.8 mIU/mL NOT ON MHT 12.7 - 132.2 mlU/mL MALE 0.7 - 10.8 mIU/mL Luteinizing Hormone 4.4 mIU/mL [facility] Comment on above: NORMAL REFERENCE RAN GES FEMALE FOLLICULAR 1.9 - 26.2 mIU/mL MID-CYCLE PEAK 22.8 - 76.1 mIU/mL LUTEAL 0.6 - 16.6 mIU/mL POST-MENOPAUSAL ON MHT 1.1 - 52.4 mIU/mL NOT ON MHT 8.6 - 61.8 mIU/mL MALE 1.2 - 10.6 mIU/mL Serum or plasma estrogen larry surement (mass/volume)Ordered By: Bisi Miller on 10-09-2023 Estrogen [Mass/Vol] 80 pg/mL . [facility] Comment on above: Prepubertal < 40 Fem rahul Cycle: 1-10 Days 16 - 328 11-20 Days 34 - 501 21-30 Days 48 - 350 Post-Menopausal 40 - 244Performed at: [facility] [address] [id number] Director: Mekhi Armando MD, Phone: [phone] Serum or plasma progesterone measurement (mass/volume)Ordered By: Bisi Miller on 10-09-2023 Progesterone [Mass/Vol] 0.39 ng/mL See Comment [facility] Comment on above: Progesterone Referen ce Table: [...] on 10-09-2023 TSH Qn 1.97 uIU/mL 0.358-3.74 [facility] Thin prep Papanicolaou smear with manual screeningOrdered By: Fuad Howard on 10-09-2023 Thin prep Papanicolaou smear with manual screening 1.03 ng/dL 0.76-1.46 [facility] Laboratory - Chemistry and C hemistry - challengeOrdered By: Dr. Persaud on 01-01-2023 Free T4 [Mass/Vol] 0.82 ng/dL 0.76-1.46 [facility] No Panel InformationOrdered By: Dr. Persaud on 12-23-2022 Thyroid Stimulating Hormone (TSH) 5.19 uIU/mL 0.358-3.74 [facility] Serum or plasma thyroperoxid ase antibody assay (units/volume)Ordered By: Dr. Persaud on 12-23-2022 TPO Ab Qn 40 [IU]/mL 0-34 [facility] Comment on above: Performed at: [address] [id number] Director: Eleazar Gr PhD, Phone: [phone] Basophil percentageOrdered B y: Dr. Persaud on 12-08-2022 WBC (Bld) [#/Vol] 8.4 10*3/uL 4.4-11.0 [facility] Blood erythrocytes count (nu mber/volume)Ordered By: Dr. Persaud on 12-08-2022 RBC (Bld) [#/Vol] 4.65 10*6/uL 4.2-5.4 [facility] Blood hemoglobin measurement (mass/volume)Ordered By: Dr. Persaud on 12-08-2022 Hemoglobin (Bld) [Mass/Vol] 13.8 g/dL 12.0-15.0 [facility] Blood platelet mean volumeOr dered By: Dr. Persaud on 12-08-2022 Platelet mean volume (Bld) [Entitic vol] 10.1 fL 6.2-12.0 [facility] Determination of erythrocyte mean corpuscular volume (MCV)Ordered By: Dr. Persaud on 12-08-2022 MCV (RBC) [Entitic vol] 88.6 fL 81-99 [facility] Hematocrit Auto (Bld) [Volum e fraction]Ordered By: Dr. Persaud on 12-08-2022 Hematocrit (Bld) [Volume fraction] 41.2 % 37-47 [facility] Laboratory - Hematology and Cell countsOrdered By: Dr. Persaud on 12-08-2022 Erythrocyte distribution width (RBC) [Entitic vol] 43.9 fL 35.1-43.9 [facility] Erythrocyte distribution width (RBC) [Ratio] 13.5 % 11.6-14.6 [facility] MCH (RBC) [Entitic mass] 29.7 pg 27.0-32.0 [facility] MCHC Auto (RBC) [Mass/Vol]Or dered By: Dr. Persaud on 12-08-2022 MCHC (RBC) [Mass/Vol] 33.5 g/dL 32-[address] [facility] Platelets bldOrdered By: Dr. Persaud on 12-08-2022 Platelets (Bld) [#/Vol] 251 10*3/uL 150-450 [facility] Laboratory - Chemistry and C hemistry - challengeon 03-26-2022 Free T4 [Mass/Vol] 0.98 ng/dL 0.76-1.46 [facility] Work Phone: No Panel Informationon 03-26 Thyroid Stimulating Hormone (TSH) 0.73 uIU/mL 0.358-3.74 [facility] Work Phone: Absolute lymphocyte counton 12-17-2021 Lymphocytes Auto (Unsp spec) [#/Vol] 2.13 10*3/uL 0.83-4.51 [facility] Work Phone: Amorphous sediment detection in urine sediment by light microscopyon 12-17-2021 Amorphous sediment LM Ql (Urine sed) 1+ [facility] Work Phone: Basophil percentageon 2021 Basophil percentage 0-5 SEEN /hpf 0-5 [facility] Work Phone: Basophils/100 WBC (Bld) 0.1 % 0-1 [facility] Work Phone: C. trachomatis DNA KIM+probe Ql (Unsp spec) Negative Negative [facility] Work Phone: Eosinophils/100 WBC (Bld) 0.4 % 0-5 [facility] Work Phone: Neutrophils (Bld) [#/Vol] 9.7 10*3/uL 2.0-7.7 [facility] Work Phone: Neutrophils/100 WBC (Bld) 76.8 % 47-70 [facility] Work Phone: WBC (Bld) [#/Vol] 12.6 10*3/uL 4.4-11.0 [facility] Work Phone: Bilirubin Test strip Ql (U)o n 12-17-2021 Bilirubin Ql (U) Negative Negative [facility] Work Phone: Blood erythrocytes count (nu mber/volume)on 12-17-2021 RBC (Bld) [#/Vol] 4.11 10*6/uL 4.2-5.4 [facility] Work Phone: Blood hemoglobin measurement (mass/volume)on 12-17-2021 Hemoglobin (Bld) [Mass/Vol] 12.4 g/dL 12.0-15.0 [facility] Work Phone: Blood lymphocytes/100 leukoc yteson 12-17-2021 Lymphocytes/100 WBC (Bld) 16.9 % 19-41 [facility] Work Phone: [phone] Blood monocytes/100 leukocyt eson 12-17-2021 Monocytes/100 WBC (Bld) 5.2 % 0-10 [facility] Work Phone: Blood platelet mean volumeon 12-17-2021 Platelet mean volume (Bld) [Entitic vol] 11.4 fL 6.2-12.0 [facility] Work Phone: Determination of erythrocyte mean corpuscular volume (MCV)on 12-17-2021 MCV (RBC) [Entitic vol] 88.8 fL 81-99 [facility] Work Phone: HIV 1 and HIV-2 antibody ass ay with HIV-1 p24 antigen detectionon 12-17-2021 HIV 1+2 Ab+HIV1 p24 Ag IA Ql Non-Reactive Nonreactive [facility] Work Phone: Hematocrit Auto (Bld) [Volum e fraction]on 12-17-2021 Hematocrit (Bld) [Volume fraction] 36.5 % 37-47 [facility] Work Phone: Ketones Test strip Ql (U)on 12-17-2021 Ketones Ql (U) Negative Negative [facility] Work Phone: [phone] Laboratory - Drug toxicology on 12-17-2021 Benzodiazepines Ql (U) Negative < 200 ng/mL [facility] Work Phone: [phone] Cannabinoids Screen Ql (U) Negative < 50 ng/mL [facility] Work Phone: [phone] Cocaine Ql (U) Negative < 300 ng/mL [facility] Work Phone: [phone] Opiates Ql (U) Negative < 300 ng/mL [facility] Work Phone: [phone] Laboratory - Hematology and Cell countson 12-17-2021 Erythrocyte distribution width (RBC) [Entitic vol] 45.0 fL 35.1-43.9 [facility] Work Phone: [phone] Erythrocyte distribution width (RBC) [Ratio] 13.8 % 11.6-14.6 [facility] Work Phone: [phone] Immature granulocytes/100 WBC (Bld) 0.600 % 0.0-0.9 [facility] Work Phone: [phone] Comment on above: IG% - Immature Granu locytes (promyelocytes, myelocytes and metamyelocytes) > 1% indicates that a LEFT SHIFT is Present. MCH (RBC) [Entitic mass] 30.2 pg 27.0-32.0 [facility] Work Phone: Nucleated RBC/100 WBC (Bld) [Ratio] 0 % 0-5 [facility] Work Phone: [phone] MCHC Auto (RBC) [Mass/Vol]on 12-17-2021 MCHC (RBC) [Mass/Vol] 34.0 g/dL 32-[address] [facility] Work Phone: [phone] Mucus LM Ql (Urine sed)on Mucus Ql (Urine sed) 0 SEEN /hpf [facility] Work Phone: [phone] Neisseria gonorrhoeae detect ion by PCRon 12-17-2021 N. gonorrhoeae DNA KIM+probe Ql (Cervical mucus) Negative Negative [facility] Work Phone: [phone] Nitrite Test strip Ql (U)on 12-17-2021 Nitrite Ql (U) Negative Negative [facility] Work Phone: [phone] No Panel Informationon 12-17 Hepatitis B Surface Antigen Non-Reactive Nonreactive [facility] Work Phone: [phone] Hepatitis C Antibody Non-Reactive Nonreactive [facility] Work Phone: [phone] Comment on above: Non Reactive: < 0.8 Equivocal: >/= 0.8 to < 1.0 Reactive: >/= 1.0The [facility] recommends that a reactive/equivocal HCV antibody result be followed up by the HCV Nucleic Acid Amplificationtest (152942) MDMA (Ecstasy) Screen Negative < 500 ng/mL [facility] Work Phone: [phone] Urine Barbiturates Screen Negative < 200 ng/mL [facility] Work Phone: [phone] Urine Drug Screen Comment [facility] Work Phone: [phone] Comment on above: CONFIRMATORY TESTING FOR ALL [...] Urine Methadone Screen Negative < 300 ng/mL [facility] Work Phone: [phone] Urine Transitional Epithelial Cells 0-5 SEEN /hpf 0-5 [facility] Work Phone: [phone] Platelets bldon 12-17-2021 Platelets (Bld) [#/Vol] 237 10*3/uL 150-450 [facility] Work Phone: [phone] Protein Test strip Ql (U)on 12-17-2021 Protein Ql (U) Negative Negative [facility] Work Phone: [phone] Serum Treponema species anti body detectionon 12-17-2021 Treponema sp Ab Ql (S) Non-Reactive [facility] Work Phone: Squamous epithelial cells de tection in urine sediment by light microscopyon 12-17-2021 Epithelial cells.squamous LM Ql (Urine sed) 0-5 SEEN /hpf 5-10 [facility] Work Phone: Urine amphetamine measuremen t (moles/volume)on 12-17-2021 Amphetamine (U) [Moles/Vol] Negative <1000 ng/mL [facility] Work Phone: Urine blood detectionon 12-06 RBC Ql (U) Negative Negative [facility] Work Phone: RBC Ql (U) 0 SEEN /hpf 0-5 [facility] Work Phone: Urine clarityon 12-17-2021 Clarity (U) Clear Clear [facility] Work Phone: Urine color determinationon 12-17-2021 Color (U) Yellow Yellow [facility] Work Phone: Urine glucose detectionon Glucose Ql (U) Normal mg/dl Normal [facility] Work Phone: Urine leukocyte esterase det ection by dipstickon 12-17-2021 Leukocyte esterase Test strip Ql (U) Negative Negative [facility] Work Phone: Urine pHon 12-17-2021 pH (U) 8.0 [pH] 5.0 - 8.0 [facility] Work Phone: Urine phencyclidine (PCP) de tectionon 12-17-2021 Phencyclidine Ql (U) Negative < 25 ng/mL [facility] Work Phone: Urine sediment bacteria coun t by microscopy (number/high power field)on 12-17-2021 Bacteria LM.HPF (Urine sed) [#/Area] 0 /[HPF] None Seen [facility] Work Phone: Urine specific gravity measu rementon 12-17-2021 Specific gravity (U) [Rel density] 1.015 1.002-1.030 [facility] Work Phone: Urobilinogen Auto test strip Ql (U)on 12-17-2021 Urobilinogen Ql (U) Normal mg/dl Normal [facility] Work Phone: Laboratory - Chemistry and C hemistry - challengeon 12-13-2021 Glucose Ql (U) Negative [facility] Work Phone: Laboratory - Urinalysison Protein Ql (U) Negative [facility] Work Phone: Laboratory - Chemistry and C hemistry - challengeon 12-06-2021 Glucose Ql (U) Negative [facility] Work Phone: Laboratory - Urinalysison Protein Ql (U) Negative [facility] Work Phone: Laboratory - Chemistry and C hemistry - challengeon 11-29-2021 Glucose Ql (U) Negative [facility] Work Phone: Laboratory - Urinalysison Protein Ql (U) Negative [facility] Work Phone: No Panel Informationon 11-29 Group B Streptococcus Culture Group B Beta Streptococcus is not isolated. [facility] Work Phone: Laboratory - Chemistry and C hemistry - challengeon 11-15-2021 Glucose Ql (U) Negative [facility] Work Phone: Laboratory - Urinalysison Protein Ql (U) Negative [facility] Work Phone: Laboratory - Chemistry and C hemistry - challengeon 11-01-2021 Free T4 [Mass/Vol] 1.39 ng/dL 0.76-1.46 [facility] Work Phone: Glucose Ql (U) Negative [facility] Work Phone: Laboratory - Urinalysison Protein Ql (U) Negative [facility] Work Phone: No Panel Informationon 11-01 Thyroid Stimulating Hormone (TSH) < 0.01 uIU/mL 0.358-3.74 [facility] Work Phone: Laboratory - Chemistry and C hemistry - challengeon 10-18-2021 Glucose Ql (U) Negative [facility] Work Phone: Laboratory - Urinalysison Protein Ql (U) Negative [facility] Work Phone: Absolute lymphocyte counton 10-02-2021 Lymphocytes Auto (Unsp spec) [#/Vol] 2.05 10*3/uL 0.83-4.51 [facility] Work [phone] Basophil percentageon 2021 Basophils/100 WBC (Bld) 0.3 % 0-1 [facility] Work Phone: Eosinophils/100 WBC (Bld) 1.3 % 0-5 [facility] Work Phone: Neutrophils (Bld) [#/Vol] 8.1 10*3/uL 2.0-7.7 [facility] Work Phone: Neutrophils/100 WBC (Bld) 72.8 % 47-70 [facility] Work Phone: WBC (Bld) [#/Vol] 11.1 10*3/uL 4.4-11.0 [facility] Work Phone: Blood erythrocytes count (nu mber/volume)on 10-02-2021 RBC (Bld) [#/Vol] 3.97 10*6/uL 4.2-5.4 [facility] Work Phone: Blood hemoglobin measurement (mass/volume)on 10-02-2021 Hemoglobin (Bld) [Mass/Vol] 12.3 g/dL 12.0-15.0 [facility] Work Phone: Blood lymphocytes/100 leukoc yteson 10-02-2021 Lymphocytes/100 WBC (Bld) 18.5 % 19-41 [facility] Work Phone: Blood monocytes/100 leukocyt eson 10-02-2021 Monocytes/100 WBC (Bld) 6.6 % 0-10 [facility] Work Phone: [phone] Blood platelet mean volumeon 10-02-2021 Platelet mean volume (Bld) [Entitic vol] 10.0 fL 6.2-12.0 [facility] Work Phone: [phone] Determination of erythrocyte mean corpuscular volume (MCV)on 10-02-2021 MCV (RBC) [Entitic vol] 89.9 fL 81-99 [facility] Work Phone: [phone] Gestational diabetes screen 1-hour screen with 50g oral glucose loadon 10-02-2021 Glucose 1 Hr post 50 g glucose PO [Mass/Vol] 107 mg/dL 70-140 [facility] Work Phone: [phone] Hematocrit Auto (Bld) [Volum e fraction]on 10-02-2021 Hematocrit (Bld) [Volume fraction] 35.7 % 37-47 [facility] Work Phone: [phone] Laboratory - Chemistry and C hemistry - challengeon 10-02-2021 Glucose Ql (U) Negative [facility] Work Phone: [phone] Free T4 [Mass/Vol] 1.20 ng/dL 0.76-1.46 [facility] Work Phone: [phone] Laboratory - Hematology and Cell countson 10-02-2021 Erythrocyte distribution width (RBC) [Entitic vol] 44.7 fL 35.1-43.9 [facility] Work Phone: [phone] Erythrocyte distribution width (RBC) [Ratio] 13.6 % 11.6-14.6 [facility] Work Phone: [phone] Immature granulocytes/100 WBC (Bld) 0.500 % 0.0-0.9 [facility] Work Phone: [phone] Comment on above: IG% - Immature Granu locytes (promyelocytes, myelocytes and metamyelocytes) > 1% indicates that a LEFT SHIFT is Present. MCH (RBC) [Entitic mass] 31.0 pg 27.0-32.0 [facility] Work Phone: Nucleated RBC/100 WBC (Bld) [Ratio] 0 % 0-5 [facility] Work Phone: Laboratory - Urinalysison Protein Ql (U) Negative [facility] Work Phone: MCHC Auto (RBC) [Mass/Vol]on 10-02-2021 MCHC (RBC) [Mass/Vol] 34.5 g/dL 32-[address] [facility] Work Phone: No Panel Informationon 10-02 Thyroid Stimulating Hormone (TSH) 0.08 uIU/mL 0.358-3.74 [facility] Work Phone: [phone] Platelets bldon 10-02-2021 Platelets (Bld) [#/Vol] 208 10*3/uL 150-450 [facility] Work Phone: Laboratory - Chemistry and C hemistry - challengeon 09-03-2021 Glucose Ql (U) Negative [facility] Work Phone: Laboratory - Urinalysison Protein Ql (U) Negative [facility] Work Phone: [phone] Laboratory - Chemistry and C hemistry - challengeon 08-09-2021 Free T4 [Mass/Vol] 1.06 ng/dL 0.76-1.46 [facility] Work Phone: [phone] Glucose Ql (U) Negative [facility] Work Phone: [phone] Laboratory - Urinalysison Protein Ql (U) Negative [facility] Work Phone: No Panel Informationon 08-09 Thyroid Stimulating Hormone (TSH) 1.26 uIU/mL 0.358-3.74 [facility] Work Phone: Gram stain for investigation of transfusion reaction Microscopic observation Gram stain Nom (Unsp spec) [facility] Work Phone: No Panel Information Group B Streptococcus Culture Group B Beta Streptococcus is not isolated. [facility] Work Phone: Thin prep Papanicolaou smear with manual screening Genital Culture GPC Poss Enterococcu s sp [facility] Work Phone: Vital Signs Date Time Vital Sign Value Performing Clinician Faci lukey 06-24-2025 09:19-0400 Body temperature 98.2 [degF] Luke Mildred PA Work Phone: [facility] 06-24-2025 09:19-0400 Diastolic blood pressure 72 mm[Hg] Luke Mildred PA Work Phone: [facility] 06-24-2025 09:19-0400 Heart rate 86 /min Luke Mildred PA Work Phone: [facility] 06-24-2025 09:19-0400 Respiratory rate 16 /min Luke Mildred PA Work Phone: [facility] 06-24-2025 09:19-0400 SaO2% (BldA) [Mass fraction] 98 % Luke Mildred PA Work Phone: [facility] 06-24-2025 09:19-0400 Systolic blood pressure 114 mm[Hg] Luke Mildred PA Work Phone: [facility] 06-22-2025 12:16-0400 Body height 154.94 cm Luke Mildred PA Work Phone: [facility] 06-22-2025 12:16-0400 Body mass index (BMI) [Ratio] 36.1 kg/m2 Luke Mildred PA Work Phone: [facility] 06-22-2025 12:16-0400 Body weight 86.63 kg Luke Mildred PA Work Phone: [facility] 06-22-2025 10:52-0400 Body mass index (BMI) [Ratio] 36.3 kg/m2 Luke Mildred PA Work Phone: [facility] 06-22-2025 10:52-0400 Body weight 87.25 kg Luke Mildred PA Work Phone: [facility] 06-22-2025 10:52-0400 Diastolic blood pressure 67 mm[Hg] Luke Mildred PA Work Phone: [facility] 06-22-2025 10:52-0400 Systolic blood pressure 118 mm[Hg] Luke Mildred PA Work Phone: [facility] 06-14-2025 11:43-0400 Body height 154.94 cm Luke Mildred PA Work Phone: [facility] 06-14-2025 11:40-0400 Body mass index (BMI) [Ratio] 35.9 kg/m2 Luke Mildred PA Work Phone: [facility] 06-14-2025 11:40-0400 Body weight 86.38 kg Luke Mildred PA Work Phone: [facility] 06-14-2025 11:40-0400 Diastolic blood pressure 68 mm[Hg] Luke Mildred PA Work Phone: [facility] 06-14-2025 11:40-0400 Systolic blood pressure 105 mm[Hg] Luke Mildred PA Work Phone: [facility] 06-05-2025 08:46-0400 Body height 154.94 cm Luke Mildred PA Work Phone: [facility] 06-05-2025 08:45-0400 Body mass index (BMI) [Ratio] 35.6 kg/m2 Luke Mildred PA Work Phone: [facility] 06-05-2025 08:45-0400 Body weight 85.72 kg Luke Mildred PA Work Phone: [facility] 06-05-2025 08:45-0400 Diastolic blood pressure 73 mm[Hg] Luke Mildred PA Work Phone: [facility] 06-05-2025 08:45-0400 Systolic blood pressure 106 mm[Hg] Luke Mildred PA Work Phone: [facility] 05-31-2025 09:25-0400 Body mass index (BMI) [Ratio] 35.5 kg/m2 Luke Mildred PA Work Phone: [facility] 05-31-2025 09:25-0400 Body weight 85.36 kg Luke Mildred PA Work Phone: [facility] 05-31-2025 09:25-0400 Diastolic blood pressure 77 mm[Hg] Luke Mildred PA Work Phone: [facility] 05-31-2025 09:25-0400 Systolic blood pressure 130 mm[Hg] Luke Mildred PA Work Phone: [facility] 05-18-2025 09:56-0400 Body height 154.94 cm Luke Mildred PA Work Phone: [facility] 05-18-2025 09:52-0400 Body mass index (BMI) [Ratio] 34.9 kg/m2 Luke Mildred PA Work Phone: [facility] 05-18-2025 09:52-0400 Body weight 83.94 kg Luke Mildred PA Work Phone: [facility] 05-18-2025 09:52-0400 Diastolic blood pressure 67 mm[Hg] Luke Mildred PA Work Phone: [facility] 05-18-2025 09:52-0400 Systolic blood pressure 106 mm[Hg] Luke Mildred PA Work Phone: [facility] 05-01-2025 14:02-0400 Body height 154.94 cm Luke Mildred PA Work Phone: [facility] 04-20-2025 13:17-0400 Body mass index (BMI) [Ratio] 34.1 kg/m2 Luke Mildred PA Work Phone: [facility] 04-20-2025 13:17-0400 Body weight 81.9 kg Luke Mildred PA Work Phone: [facility] 04-20-2025 13:17-0400 Diastolic blood pressure 78 mm[Hg] Luke Mildred PA Work Phone: [facility] 04-20-2025 13:17-0400 Systolic blood pressure 116 mm[Hg] Luke Mildred PA Work Phone: [facility] 04-20-2025 09:21-0400 Body height 154.94 cm Luke Mildred PA Work Phone: [facility] 04-20-2025 09:19-0400 Body mass index (BMI) [Ratio] 33.4 kg/m2 Luke Mildred PA Work Phone: [facility] 04-20-2025 09:19-0400 Body weight 80.31 kg Luke Mildred PA Work Phone: [facility] 04-20-2025 09:19-0400 Diastolic blood pressure 65 mm[Hg] Luke Mildred PA Work Phone: [facility] 04-20-2025 09:19-0400 Systolic blood pressure 100 mm[Hg] Luke Mildred PA Work Phone: [facility] 04-05-2025 10:02-0400 Body height 154.94 cm Luke Mildred PA Work Phone: [facility] 04-05-2025 09:58-0400 Body mass index (BMI) [Ratio] 32.9 kg/m2 Luke Mildred PA Work Phone: [facility] 04-05-2025 09:58-0400 Body weight 79.03 kg Luke Mildred PA Work Phone: [facility] 04-05-2025 09:58-0400 Diastolic blood pressure 70 mm[Hg] Luke Mildred PA Work Phone: [facility] 04-05-2025 09:58-0400 Systolic blood pressure 104 mm[Hg] Luke Mildred PA Work Phone: [facility] 03-13-2025 13:20-0400 Body height 154.94 cm Luke Mildred PA Work Phone: [facility] 03-13-2025 13:20-0400 Body mass index (BMI) [Ratio] 32.3 kg/m2 Luke Mildred PA Work Phone: [facility] 03-13-2025 13:20-0400 Body weight 77.67 kg Luke Mildred PA Work Phone: [facility] 03-13-2025 13:20-0400 Diastolic blood pressure 71 mm[Hg] Luke Mildred PA Work Phone: [facility] 03-13-2025 13:20-0400 Systolic blood pressure 107 mm[Hg] Luke Mildred PA Work Phone: [facility] 02-16-2025 09:48-0400 Body height 154.94 cm Luke Mildred PA Work Phone: [facility] 02-16-2025 09:48-0400 Body mass index (BMI) [Ratio] 31.2 kg/m2 Luke Mildred PA Work Phone: [facility] 02-16-2025 09:48-0400 Body weight 74.95 kg Luke Mildred PA Work Phone: [facility] 02-16-2025 09:48-0400 Diastolic blood pressure 64 mm[Hg] Luke Mildred PA Work Phone: [facility] 02-16-2025 09:48-0400 Systolic blood pressure 114 mm[Hg] Luke Mildred PA Work Phone: [facility] 01-18-2025 13:04-0400 Body height 154.94 cm Luke Mildred PA Work Phone: [facility] 01-18-2025 13:04-0400 Body mass index (BMI) [Ratio] 30.2 kg/m2 Luke Mildred PA Work Phone: [facility] 01-18-2025 13:04-0400 Body weight 72.74 kg Luke Mildred PA Work Phone: [facility] 01-18-2025 13:04-0400 Diastolic blood pressure 60 mm[Hg] Luke Mildred PA Work Phone: [facility] 01-18-2025 13:04-0400 Systolic blood pressure 110 mm[Hg] Luke Mildred PA Work Phone: [facility] 12-22-2024 10:15-0400 Body height 154.94 cm Luke Mildred PA Work Phone: [facility] 12-22-2024 10:15-0400 Body mass index (BMI) [Ratio] 29.7 kg/m2 Luke Mildred PA Work Phone: [facility] 12-22-2024 10:15-0400 Body weight 71.32 kg Luke Mildred PA Work Phone: [facility] 12-22-2024 10:15-0400 Diastolic blood pressure 69 mm[Hg] Luke Mildred PA Work Phone: [facility] 12-22-2024 10:15-0400 Systolic blood pressure 102 mm[Hg] Luke Mildred PA Work Phone: [facility] 11-25-2024 13:44-0400 Body height 154.94 cm Luke Mildred PA Work Phone: [facility] 11-25-2024 13:44-0400 Body mass index (BMI) [Ratio] 30 kg/m2 Luke Mildred PA Work Phone: [facility] 11-25-2024 13:44-0400 Body weight 72.23 kg Sachaazalea Azuller PA Work Phone: [facility] 11-25-2024 13:44-0400 Diastolic blood pressure 76 mm[Hg] Sachaazalea RichardsMildred PA Work Phone: [facility] 11-25-2024 13:44-0400 Systolic blood pressure 111 mm[Hg] Abdirizak Mildred PA Work Phone: [facility] 02-10-2024 08:04-0400 Body height 156.21 cm Shira aPtel MA [facility], [facility].; [facility] 02-10-2024 08:04-0400 Body mass index (BMI) [Ratio] 30.49 kg/m2 Shira Patel MA [facility], [facility].; [facility] 02-10-2024 08:04-0400 Body surface area Derived from formula 1.75 m2 Shira Patel MA [facility], [facility].; [facility], [facility]. 02-10-2024 08:04-0400 Body weight 74.39 kg Shira Patel MA [facility], [facility].; [facility] 02-10-2024 08:04-0400 Diastolic blood pressure 74 mm[Hg] Shira Patel MA [facility], [facility].; [facility], [facility]. Comment on above: Patient Position: Sitting; Cuff Location : Left Arm; Cuff Size: Standard 02-10-2024 08:04-0400 Heart rate 74 /min Shira Patel MA [facility], [facility].; [employer] [facility] [employer] [facility]. Comment on above: Pattern: Regular 02-10-2024 08:04-0400 Systolic blood pressure 111 mm[Hg] Shira Patel MA [facility] [employer] [facility], [facility]. Comment on above: Patient Position: Sitting; Cuff Location : Left Arm; Cuff Size: Standard 10-09-2023 09:11-0500 Body height 154.94 cm PA Abdirizak Mildred Work Phone: [facility] 10-09-2023 09:05-0500 Body mass index (BMI) [Ratio] 31.2 kg/m2 PA Luke Mildred Work Phone: [facility] 10-09-2023 09:05-0500 Body weight 75.06 kg PA Luke Mildred Work Phone: [facility] 10-09-2023 09:05-0500 Diastolic blood pressure 62 mm[Hg] PA Luke Mildred Work Phone: [facility] 10-09-2023 09:05-0500 Systolic blood pressure 104 mm[Hg] PA Luke Mildred Work Phone: [facility] 07-13-2023 08:50-0500 Body height 156.21 cm Luke E Mildred PA-C Work Phone: [facility] [employer] [facility] 07-13-2023 08:50-0500 Body mass index (BMI) [Ratio] 30.86 kg/m2 Luke E Mildred PA-C Work Phone: [employer] [place] [employer] [facility] [facility] 07-13-2023 08:50-0500 Body surface area Derived from formula 1.76 m2 Luke E Mildred PA-C Work Phone: [employer] [facility]. 07-13-2023 08:50-0500 Body weight 75.3 kg Luke E Mildred PA-C Work Phone: [employer] [facility] 07-13-2023 08:50-0500 Diastolic blood pressure 72 mm[Hg] Luke E Mildred PA-C Work Phone: [employer]. Comment on above: Patient Position: Sitting; Cuff Location : Left Arm; Cuff Size: Standard 07-13-2023 08:50-0500 Heart rate 84 /min Luke E Mildred PA-C Work Phone: [facility].; [facility]. Comment on above: Pattern: Regular 07-13-2023 08:50-0500 Systolic blood pressure 109 mm[Hg] Abdirizak Levy PA-C Work Phone: [facility].; [facility] [facility] Comment on above: Patient Position: Sitting; Cuff Location : Left Arm; Cuff Size: Standard 12-23-2022 11:09-0400 Body height 154.[address] Venkat Jain Work Phone: [facility] 12-23-2022 11:09-0400 Body mass index (BMI) [Ratio] 31.4 kg/m2 Dr. Venkat Jain Work Phone: [facility] 12-23-2022 11:09-0400 Diastolic blood pressure 77 mm[Hg] Dr. Venkat Jain Work Phone: [facility] 12-23-2022 11:09-0400 Systolic blood pressure 117 mm[Hg] Dr. Venkat Jain Work Phone: [facility] 12-23-2022 11:06-0400 Body weight 75.[address] Venkat Jain Work Phone: [facility] 12-08-2022 14:40-0400 Diastolic blood pressure 60 mm[Hg] Dr. Venkat Jain Work Phone: [facility] 12-08-2022 14:40-0400 Heart rate 72 /min Dr. Venkat Jain Work Phone: [facility] 12-08-2022 14:40-0400 Respiratory rate 18 /min Dr. Venkat Jain Work Phone: [facility] 12-08-2022 14:40-0400 SaO2% (BldA) [Mass fraction] 99 % Dr. Venkat Jain Work Phone: [facility] 12-08-2022 14:40-0400 Systolic blood pressure 110 mm[Hg] Dr. Venkat Jain Work Phone: [facility] 12-08-2022 13:20-0400 Body temperature 97.4 [degF] Dr. Venkat Jain Work Phone: [facility] 12-08-2022 12:05-0400 Body mass index (BMI) [Ratio] 31.1 kg/m2 Dr. Venkat Jain Work Phone: [facility] 12-08-2022 12:05-0400 Body weight 74.[address] Venkat Jain Work Phone: [facility] 12-04-2022 11:14-0400 Body mass index (BMI) [Ratio] 31.2 kg/m2 Dr. Venkat Jain Work Phone: [facility] 12-04-2022 11:14-0400 Body weight 76.[address] Venkat Jain Work Phone: [facility] 12-04-2022 11:14-0400 Diastolic blood pressure 75 mm[Hg] Dr. Venkat Jain Work Phone: [facility] 12-04-2022 11:14-0400 Systolic blood pressure 126 mm[Hg] Dr. Venkat Jain Work Phone: [facility] 03-26-2022 11:10-0400 Body height 156.[address] Ryley Beck Work Phone: [facility] Work Phone: 03-26-2022 11:09-0400 Body mass index (BMI) [Ratio] 31.5 kg/m2 Dr. Ryley Beck Work Phone: [facility] Work Phone: 03-26-2022 11:09-0400 Body weight 75.[address] Ryley Beck Work Phone: [facility] Work Phone: 03-26-2022 11:09-0400 Diastolic blood pressure 80 mm[Hg] Dr. Ryley Beck Work Phone: [facility] Work Phone: 03-26-2022 11:09-0400 Systolic blood pressure 112 mm[Hg] Dr. Ryley Beck Work Phone: [facility] Work Phone: 01-31-2022 15:36-0400 Body height 156.[address] Ryley Beck Work Phone: [facility] Work Phone: 01-31-2022 15:36-0400 Diastolic blood pressure 82 mm[Hg] Dr. Ryley Beck Work Phone: [facility] Work Phone: 01-31-2022 15:36-0400 Systolic blood pressure 116 mm[Hg] Dr. Ryley Beck Work Phone: [facility] Work Phone: 12-19-2021 13:45-0400 Body temperature 97.4 [degF] Dr. Ryley Beck Work Phone: [facility] Work Phone: 12-19-2021 13:45-0400 Diastolic blood pressure 75 mm[Hg] Dr. Ryley Beck Work Phone: [facility] Work Phone: 12-19-2021 13:45-0400 Heart rate 80 /min Dr. Ryley Beck Work Phone: [facility] Work Phone: 12-19-2021 13:45-0400 Respiratory rate 16 /min Dr. Ryley Beck Work Phone: [facility] Work Phone: 12-19-2021 13:45-0400 Systolic blood pressure 99 mm[Hg] Dr. Ryley Beck Work Phone: [facility] Work Phone: 12-18-2021 15:44-0400 SaO2% (BldA) [Mass fraction] 98 % Dr. Ryley Beck Work Phone: [facility] Work Phone: 12-17-2021 12:26-0400 Body height 156.[address] Ryley Beck Work Phone: [facility] Work Phone: 12-17-2021 12:26-0400 Body mass index (BMI) [Ratio] 34 kg/m2 Dr. Ryley Beck Work Phone: [facility] Work Phone: 12-17-2021 12:26-0400 Body weight 83.[address] Ryley Beck Work Phone: [facility] Work Phone: 12-13-2021 10:03-0400 Body mass index (BMI) [Ratio] 34.2 kg/m2 Dr. Ryley Beck Work Phone: [facility] Work Phone: 12-13-2021 10:03-0400 Body weight 83.[address] Ryley Beck Work Phone: [facility] Work Phone: 12-13-2021 10:03-0400 Diastolic blood pressure 70 mm[Hg] Dr. Ryley Beck Work Phone: [facility] Work Phone: 12-13-2021 10:03-0400 Systolic blood pressure 110 mm[Hg] Dr. Ryley Beck Work Phone: [facility] Work Phone: 12-13-2021 10:03-0400 Body mass index (BMI) [Ratio] 34.2 kg/m2 Dr. Ryley Beck Work Phone: [facility] Work Phone: 12-13-2021 10:03-0400 Body weight 83.[address] Ryley Beck Work Phone: [facility] Work Phone: 12-13-2021 10:03-0400 Diastolic blood pressure 70 mm[Hg] Dr. Ryley Beck Work Phone: [facility] Work Phone: 12-13-2021 10:03-0400 Systolic blood pressure 110 mm[Hg] Dr. Ryley Beck Work Phone: [facility] Work Phone: 12-06-2021 09:48-0400 Body mass index (BMI) [Ratio] 33.8 kg/m2 Dr. Ryley Beck Work Phone: [facility] Work Phone: 12-06-2021 09:48-0400 Body weight 82.[address] Ryley Beck Work Phone: [facility] Work Phone: 12-06-2021 09:48-0400 Diastolic blood pressure 80 mm[Hg] Dr. Ryley Beck Work Phone: [facility] Work Phone: 12-06-2021 09:48-0400 Systolic blood pressure 118 mm[Hg] Dr. Ryley Beck Work Phone: [facility] Work Phone: 12-06-2021 09:48-0400 Body mass index (BMI) [Ratio] 33.8 kg/m2 Dr. Ryley Beck Work Phone: [facility] Work Phone: 12-06-2021 09:48-0400 Body weight 82.[address] Ryley Beck Work Phone: [facility] Work Phone: 12-06-2021 09:48-0400 Diastolic blood pressure 80 mm[Hg] Dr. Ryley Beck Work Phone: [facility] Work Phone: 12-06-2021 09:48-0400 Systolic blood pressure 118 mm[Hg] Dr. Ryley Beck Work Phone: [facility] Work Phone: 11-29-2021 09:30-0400 Body mass index (BMI) [Ratio] 33.6 kg/m2 Dr. Ryley Beck Work Phone: [facility] Work Phone: 11-29-2021 09:30-0400 Body weight 82.[address] Ryley Beck Work Phone: [facility] Work Phone: 11-29-2021 09:30-0400 Diastolic blood pressure 78 mm[Hg] Dr. Ryley Beck Work Phone: [facility] Work Phone: 11-29-2021 09:30-0400 Systolic blood pressure 120 mm[Hg] Dr. Ryley Beck Work Phone: [facility] Work Phone: 11-29-2021 09:30-0400 Body height 156.[address] Ryley Beck Work Phone: [facility] Work Phone: 11-29-2021 09:30-0400 Body mass index (BMI) [Ratio] 33.6 kg/m2 Dr. Ryley Beck Work Phone: [facility] Work Phone: 11-29-2021 09:30-0400 Body weight 82.[address] Ryley Beck Work Phone: [facility] Work Phone: 11-29-2021 09:30-0400 Diastolic blood pressure 78 mm[Hg] Dr. Ryley Beck Work Phone: [facility] Work Phone: 11-29-2021 09:30-0400 Systolic blood pressure 120 mm[Hg] Dr. Ryley Beck Work Phone: [facility] Work Phone: 11-15-2021 09:44-0500 Body mass index (BMI) [Ratio] 32.8 kg/m2 Dr. Ryley Beck Work Phone: [facility] Work Phone: 11-15-2021 09:44-0500 Body weight [address] Ryley Beck Work Phone: [facility] Work Phone: 11-15-2021 08:44-0500 Body mass index (BMI) [Ratio] 32.8 kg/m2 Dr. Ryley Beck Work Phone: [facility] Work Phone: 11-15-2021 08:44-0500 Body weight [address] Ryley Beck Work Phone: [facility] Work Phone: 11-01-2021 08:20-0500 Body mass index (BMI) [Ratio] 32.5 kg/m2 Dr. Ryley Beck Work Phone: [facility] Work Phone: 11-01-2021 08:20-0500 Body weight 79.[address] Ryley Beck Work Phone: [facility] Work Phone: 11-01-2021 08:20-0500 Diastolic blood pressure 76 mm[Hg] Dr. Ryley Beck Work Phone: [facility] Work Phone: 11-01-2021 08:20-0500 Systolic blood pressure 120 mm[Hg] Dr. Ryley Beck Work Phone: [facility] Work Phone: 10-18-2021 08:44-0500 Body mass index (BMI) [Ratio] 32.3 kg/m2 Dr. Ryley Beck Work Phone: [facility] Work Phone: 10-18-2021 08:44-0500 Body weight 78.[address] Ryley Beck Work Phone: [facility] Work Phone: 10-18-2021 08:44-0500 Diastolic blood pressure 70 mm[Hg] Dr. Ryley Beck Work Phone: [facility] Work Phone: 10-18-2021 08:44-0500 Systolic blood pressure 110 mm[Hg] Dr. Ryley Beck Work Phone: [facility] Work Phone: 10-02-2021 07:57-0500 Body mass index (BMI) [Ratio] 31.8 kg/m2 Dr. Ryley Beck Work Phone: [facility] Work Phone: 10-02-2021 07:57-0500 Body weight 77.[address] Ryley Beck Work Phone: [facility] Work Phone: 10-02-2021 07:57-0500 Diastolic blood pressure 64 mm[Hg] Dr. Ryley Beck Work Phone: [facility] Work Phone: 10-02-2021 07:57-0500 Systolic blood pressure 116 mm[Hg] Dr. Ryley Beck Work Phone: [facility] Work Phone: 09-03-2021 14:13-0500 Body mass index (BMI) [Ratio] 30.8 kg/m2 Dr. Ryley Beck Work Phone: [facility] Work Phone: 09-03-2021 14:13-0500 Body weight 75.[address] Ryley Beck Work Phone: [facility] Work Phone: 09-03-2021 14:13-0500 Diastolic blood pressure 70 mm[Hg] Dr. Ryley Beck Work Phone: [facility] Work Phone: 09-03-2021 14:13-0500 Systolic blood pressure 116 mm[Hg] Dr. Ryley Beck Work Phone: [facility] Work Phone: 08-09-2021 08:12-0500 Body mass index (BMI) [Ratio] 30.1 kg/m2 Dr. Ryley Beck Work Phone: [facility] Work Phone: 08-09-2021 08:12-0500 Body weight 73.[address] Ryley Beck Work Phone: [facility] Work Phone: 08-09-2021 08:12-0500 Diastolic blood pressure 80 mm[Hg] Dr. Ryley Beck Work Phone: [facility] Work Phone: 08-09-2021 08:12-0500 Systolic blood pressure 120 mm[Hg] Dr. Ryley Beck Work Phone: [facility] Work Phone: Encounters Encounter Date Encounter Type Care Provider Facility Start: 06-26-2025 ambulatory Bambi Medina:[facility] Start: 06-24-2025 Non-patient / Non-visit Irma Gandara CNM -[facility] Start: 06-23-2025 Non-patient / Non-visit Dr. Rocio Persaud MD -[facility] Start: 06-22-2025 Non-patient / Non-visit Dr. Bambi Callaway DO -[facility] Start: 06-22-2025 ambulatory Bambi Medina:[facility] Start: 06-22-2025 End: 06-24-2025 Evaluation and management of inpatient Dr. Bambi Callaway DO -[facility] Work Phone: Start: 06-22-2025 End: 06-22-2025 Patient encounter procedure Jacinta Rojas CNM -[facility] Work Phone: Start: 06-22-2025 End: 06-22-2025 ambulatory Luke Mildred PA Work Phone: -[facility] Start: 06-14-2025 End: 06-14-[address] Rocio Persaud MD -[facility] Work Phone: Start: 06-14-2025 End: 06-14-2025 ambulatory Luke Mildred PA Work Phone: [facility] Start: 06-05-2025 End: 06-05-[address] Rocio Persaud MD -[facility] Work Phone: Start: 06-05-2025 End: 06-05-2025 ambulatory Luke Mildred PA Work Phone: [facility] Start: 05-31-2025 End: 05-31-2025 ambulatory Luke Mildred PA Work Phone: -Laboratory Specimen Start: 05-31-2025 End: 05-31-[address] Rocio Persaud MD -Laboratory Specimen Work Phone: Start: 05-31-2025 End: 05-31-[address] Rocio Persaud MD -[facility] Work Phone: Start: 05-31-2025 End: 05-31-2025 ambulatory Luke Mildred PA Work Phone: [facility] Start: 05-31-2025 End: 05-31-2025 ambulatory Rocio Persaud Facility:[facility] Start: 05-18-2025 End: 05-18-2025 Patient encounter procedure Mariana HENDERSON -[facility] Work Phone: Start: 05-18-2025 End: 05-18-2025 ambulatory Luke Mildred PA Work Phone: [facility] Start: 05-01-2025 End: 05-01-2025 Patient encounter procedure Jacinta Rojas CNM -[facility] Work Phone: Start: 05-01-2025 End: 05-01-2025 ambulatory Luke Mildred PA Work Phone: [facility] Start: 04-20-2025 End: 04-20-[address] Rocio Persaud MD -[facility] Work Phone: Start: 04-20-2025 End: 04-20-2025 ambulatory Luke Mildred PA Work Phone: [facility] Start: 04-20-2025 End: 04-20-2025 ambulatory Mariana Acosta NP Facility:[facility] Start: 04-05-2025 End: 04-05-2025 ambulatory Luke Mildred PA Work Phone: [facility] Start: 04-05-2025 End: 04-05-2025 Patient encounter procedure Mariana HENDERSON -[facility] Work Phone: Start: 04-05-2025 End: 04-05-2025 ambulatory Luke Mildred Facility:[facility] Start: 03-13-2025 End: 03-13-2025 Patient encounter procedure Jacinta Rojas CNM -[facility] Work Phone: Start: 03-13-2025 End: 03-13-2025 ambulatory Luke Mildred PA Work Phone: [facility] Start: 02-16-2025 End: 02-16-2025 Patient encounter procedure Mariana HENDERSON -[facility] Work Phone: Start: 02-16-2025 End: 02-16-2025 ambulatory Luke Mildred PA Work Phone: [facility] Work Phone: Start: 02-06-2025 End: 02-06-2025 ambulatory LUKE E MILDRED [facility] Start: 01-18-2025 End: 01-18-2025 Patient encounter procedure Mariana HENDERSON -[facility] Work Phone: Start: 01-18-2025 End: 01-18-2025 ambulatory Luke Mildred PA Work Phone: [facility] Work Phone: Start: 12-22-2024 End: 12-22-[address] Bambi Callaway DO -[facility] Start: 12-22-2024 End: 12-22-[address] Bambi Callaway DO -[facility] Work Phone: Start: 12-22-2024 End: 12-22-2024 ambulatory Abdirizak RobertsMildred PA Work Phone: [facility] Work Phone: Start: 12-22-2024 End: 12-22-2024 ambulatory Bambi Callaway Facility:[facility] Start: 11-25-2024 End: 11-25-[address] Rocio Persaud MD -[facility] Work Phone: Start: 11-25-2024 End: 11-25-2024 ambulatory Luke Mildred PA Work Phone: [facility] Work Phone: Start: 11-25-2024 End: 11-25-2024 ambulatory Luke Mildred Facility:[facility] Start: 11-07-2024 End: 11-07-2024 ambulatory YAA MARTIN [facility] Start: 11-02-2024 End: 11-02-2024 ambulatory Luke Mildred PA Work Phone: [facility] Work Phone: Start: 11-02-2024 End: 11-02-[address] Rocio Persaud MD -Ultrasound, [facility] Work Phone: Start: 11-02-2024 End: 11-02-2024 ambulatory Luke Mildred Facility:[facility] Start: 10-27-2024 End: 10-27-[address] Rocio Persaud MD -[facility], [facility] Start: 10-27-2024 End: 10-27-2024 ambulatory Luke Mildred Facility:[facility] Start: 06-20-2024 End: 06-20-2024 ambulatory YAA VERONICA Gant [facility] Start: 02-11-2024 End: 02-11-2024 Orders Sachake Mildred PA-C Work Phone[facility] Start: 02-10-2024 End: 02-10-2024 Office outpatient visit 15 minutes Luke Mildred PA-C Work Phone: [facility] Start: 10-26-2023 End: 10-26-2023 ambulatory PA Luke Mildred Work Phone: [facility] Work Phone: Start: 10-26-2023 End: 10-26-2023 Patient encounter procedure PA Luke Mildred Work Phone: [facility]atory, [facility] Start: 10-09-2023 End: 10-09-2023 ambulatory PA Luke Mildred Work Phone: [facility] Work Phone: Start: 10-09-2023 End: 10-09-2023 Patient encounter procedure PA Luke Mildred Work Phone: [facility] Work Phone: Start: 07-20-2023 End: 07-20-2023 Orders Abdirizak Levy PA-C Work Phone: [facility] Start: 07-13-2023 End: 07-13-2023 Office outpatient new 20 minutes Abdirizak KERNS-Abebe Work Phone: [facility] Start: 01-01-2023 End: 01-01-[address] Venkat Jain Work Phone: [facility] Work Phone: Start: 01-01-2023 End: 01-01-[address] Venkat Jain Work Phone: [facility] Start: 12-23-2022 End: 12-23-[address] Venkat Jain Work Phone: [facility] Work Phone: Start: 12-23-2022 End: 12-23-[address] Venkat Jain Work Phone: [facility] Start: 12-08-2022 Non-patient / Non-visit Dr. Venkat Jain Work Phone: [facility] Start: 12-08-2022 End: 12-08-2022 Admission to same day surgery center Dr. Venkat Jain Work Phone: [facility] Start: 12-04-2022 End: 12-04-[address] Venkat Jain Work Phone: [facility] Start: 03-26-2022 End: 03-26-[address] Ryley Beck Work Phone: [facility] Start: 03-26-2022 End: 03-26-[address] Ryley Beck Work Phone: [facility] Start: 03-05-2022 End: 03-05-[address] Ryley Beck Work Phone: [facility] Start: 01-31-2022 End: 01-31-[address] Ryley Beck Work Phone: [facility] Start: 12-19-2021 Non-patient / Non-visit Dr. Ryley Beck Work Phone: [facility] Start: 12-17-2021 End: 12-19-2021 Evaluation and management of inpatient Dr. Ryley Beck Work Phone: [facility] Start: 12-17-2021 Non-patient / Non-visit Dr. Ryley Beck Work Phone: [facility] Start: 12-13-2021 End: 12-13-[address] Ryley Beck Work Phone: [facility] Start: 12-06-2021 End: 12-06-[address] Ryley Beck Work Phone: [facility] Start: 11-29-2021 End: 11-29-[address] Ryley Beck Work Phone: [facility] Start: 11-29-2021 End: 11-29-[address] Ryley Beck Work Phone: [facility], Specimen Start: 11-15-2021 End: 11-15-[address] Ryley Beck Work Phone: [facility] Start: 11-01-2021 End: 11-01-[address] Ryley Beck Work Phone: [facility] Start: 10-18-2021 End: 10-18-[address] Ryley Beck Work Phone: [facility] Start: 10-02-2021 End: 10-02-[address] Ryley Beck Work Phone: [facility] Start: 09-03-2021 End: 09-03-[address] Ryley Beck Work Phone: [facility] Start: 08-09-2021 End: 08-09-[address] Ryley Beck Work Phone: [facility], [facility] Procedures Date Procedure Procedure Detail Performing Clinician Start: 06-22-2025 Serologic test for syphilis Abdirizak KERNS Work Phone: Start: 05-31-2025 Beta-hemolytic Streptococcus culture Abdirizak KERNS Work Phone: Start: 04-05-2025 Serologic test for syphilis Abdirizak KERNS Work Phone: Start: 12-22-2024 Procedure Abdirizak KERNS Work Phone: Comment on above: Test Ordered: [id number] TSH Receptor Antibody (TBII)TSH Receptor Antibody (TBII) <0.3 U/L Reference Range: .Reference Range:Antibody Titer:<1.0 U/L = Negative1.1 - 1.5 U/L = Equivocal>1.5 U/L = PositivePerformed at: [facility] [address] [id number] Director: Steve Leslie MD, Phone: [phone] at: [facility] [id number] Director: Eleazar Gr PhD, Phone: [phone] Start: 12-22-2024 Hepatitis C antibody measurement Abdirizak Levy LUIS F Work Phone: Comment on above: Reactive: Presumptiv e evidence of antibodies to HCV. Follow CDC recommendations for supplemental testing.Non-Reactive: Antibodies to HCV were not detected; does not exclude the possibility of exposure to HCVReactive Results are presumptive evidence of antibodies to HCV. Follow CDC recommendations for supplemental testing.Order confirmation testing: HCV Quant by PCR testing - HCVPCR #[id number] Non Reactive: < 0.8 Equivocal: >/= 0.8 to < 1.0 Reactive: >/= 1.0The CDC requires that a reactive/equivocal HCV antibody result be sent out for confirmation. HCV Quant by PCR testing. Start: 12-22-2024 Rubella IgG measurement Sachaazalea Levy LUIS F Work Phone: Comment on above: Antibody Result: Int erpretationNon-Reactive: Non- ImmuneReactive: ImmuneThe following results were obtained with the [employer] Rubella IgG assay. Results from assays of other manufacturers cannot be used interchangeably. Start: 12-22-2024 Serologic test for syphilis Abdirizak Mildred PA Work Phone: Start: 11-25-2024 Liquid based cervica l cytology screening Abdirizak KERNS Work Phone: Comment on above: NEGATIVE FOR INTRAEP ITHELIAL LESION OR MALIGNANCY. This liquid based Th inPrep(R) pap test was screened withthe use of an image guided system. The HPV DNA reflex c riteria were not met with this specimenresult therefore, no HPV testing was performed.Performed at: - [facility] [id number] [id number] Director: Martin Meadows MD, Phone: [phone] at: [facility] [address] [id number] Director: Ashley Darling MD, Phone: [phone] Start: 11-25-2024 Urine culture Abdirizak KERNS Work [...] Treatment Date Care Activity Detail Author Start: 06-24-2025 Patient discharge [facility] Start: 06-23-2025 Patient discharge [facility] Start: 06-23-2025 Consultation [facility] Start: 06-22-2025 Documentation procedure [facility] Start: 06-22-2025 Application of ice collar, cap or bag [facility] Start: 06-22-2025 Catheterization of vein [facility] Start: 06-22-2025 Introduction of urinary catheter [facility] Start: 06-22-2025 Measuring intake and output [facility] Start: 06-22-2025 Notification of physician [facility] Start: 06-22-2025 Procedure discontinued [facility] Start: 06-22-2025 Provision of activity privileges [facility] Start: 06-22-2025 Vital signs measurements [facility] Start: 06-22-2025 End: 06-22-2025 [facility] Start: 06-22-2025 Admission procedure [facility] Start: 06-22-2025 End: 06-24-2025 Evaluation and management of inpatient Hx of one miscarriage [facility] Work Phone: Start: 06-05-2025 [facility] Start: 06-05-2025 End: 06-05-2025 Patient encounter procedure Hx of one miscarriage [facility] Work Phone: Start: 04-20-2025 T4 free measurement [facility] Start: 04-20-2025 Thyroid stimulating hormone measurement [facility] Start: 04-05-2025 CBC W Auto Differential panel - Blood [facility] Start: 04-05-2025 Measurement of glucose 2 hours after glucose challenge for glucose tolerance test [facility] Start: 04-05-2025 Serologic test for syphilis [facility] Start: 04-05-2025 [facility] Start: 12-22-2024 Procedure [facility] Start: 11-25-2024 Liquid based cervical cytology screening [facility] Start: 02-10-2024 Assay of thyroid stimulating hormone tsh TSH (THYROID STIMULATING HORMONE) (76228) Start: 10-Feb-2024 08:29-04:00 Request [facility] Start: 02-10-2024 Assay of free thyroxine T4 FREE (25821) Start: 10-Feb-2024 08:29-04:00 Request [facility] Start: 02-10-2024 Assay of triiodothyronine t3 free T3 FREE (20205) Start: 10-Feb-2024 08:29-04:00 Request [facility] Start: 12-08-2022 Anesthesia incomplete/missed ANESTH INC/MISSED AB PROC [facility] Start: 12-08-2022 Tx missed first trimester surgical CARE OF MISCARRIAGE [facility] Start: 12-08-2022 Ambulation without limitation [facility] Start: 12-08-2022 Medical regimen orders management [facility] Start: 12-08-2022 Medication education [facility] Start: 12-08-2022 Patient discharge [facility] Start: 12-08-2022 Procedure discontinued [facility] Start: 12-08-2022 Taking patient vital signs [facility] Start: 12-08-2022 Vital signs measurements [facility] Start: 12-08-2022 [facility] Start: 12-19-2021 Patient discharge [facility] Work Phone: Start: 12-17-2021 Administration of medication [facility] Work Phone: Start: 12-17-2021 Application of ice collar, cap or bag [facility] Work Phone: Start: 12-17-2021 Catheterization of vein [facility] Work Phone: Start: 12-17-2021 Introduction of urinary catheter [facility] Work Phone: Start: 12-17-2021 Measuring intake and output [facility] Work Phone: Start: 12-17-2021 Notification of physician [facility] Work Phone: Start: 12-17-2021 Procedure discontinued [facility] Work Phone: Start: 12-17-2021 Provision of activity privileges [facility] Work Phone: Start: 12-17-2021 Vital signs measurements [facility] Work Phone: Start: 12-17-2021 [facility] Work Phone: Start: 12-17-2021 Admission procedure [facility] Work Phone: CBC W Auto Different ial panel - Blood [facility] CBC W Auto Different ial panel - Blood [facility] Erythrocyte mean corpuscular volume determination [facility] Hematocrit [Volume Fraction] of Blood [facility] Hemoglobin [Mass/vol ume] in Blood [facility] Hepatitis C antibody measurement [facility] Leukocytes [#/volume ] in Blood [facility] Mean corpuscular hem oglobin concentration determination [facility] Mean corpuscular hem oglobin determination [facility] Measurement of gluco se 2 hours after glucose challenge for glucose tolerance test [facility] Neutrophil count [facility] Neutrophil percent differential count [facility] Patient Education [facility] Work Phone: Patient referral [facility] Work Phone: Platelets [#/volume] in Blood [facility] Red blood cell count [facility] Red cell distributio n width determination [facility] Rubella IgG measurement [facility] Serologic test for syphilis [facility] Serologic test for syphilis [facility] T4 free measurement [facility] Thyroid stimulating hormone measurement [facility] Thyroid stimulating hormone measurement [facility] P[place] Date Payer Category Payer Unknown 2024 Self-pay [id number] 2024 Unknown [id number] 2000 Unknown [id number] 2.16.8 40.1.265893.3.579.2.651 2000 Unknown [id number] 2.16. 840.1.326705.3.579.2.479 1998 Unknown [id number] 2.16. 840.1.101144.3.579.2.479 Unknown [id number] Unknown 87 2 Unknown [id number] 2.16.8 40.1.283109.3.579.2.462 Unknown [id number] 2.16.8 40.1.042645.3.579.2.462 Unknown [id number] 2.16.8 40.1.264156.3.579.2.462 Unknown [id number] 2.16.8 40.1.455872.3.579.2.462 Unknown [id number] 2.16.8 40.1.519928.3.579.2.462 Unknown [id number] 2.16.8 40.1.116967.3.579.2.462 Unknown [id number] 2.16.8 40.1.573689.3.579.2.462 Unknown [id number] 2.16.8 40.1.186502.3.579.2.462 Unknown [id number] 2.16.8 40.1.421642.3.579.2.462 Unknown [id number] 2.16.8 40.1.851735.3.579.2.462 Unknown [id number] 2.16.8 40.1.205650.3.579.2.462 Unknown [id number] 2.16.8 40.1.158194.3.579.2.462 Unknown [id number] 2.16.8 40.1.120909.3.579.2.462 Unknown [id number] 2.16.8 40.1.962851.3.579.2.462 Unknown [id number] 2.16.8 40.1.422907.3.579.2.462 Unknown [id number] 2.16.8 40.1.785999.3.579.2.462 Unknown [id number] 2.16.8 40.1.941775.3.579.2.462 Unknown [id number] 2.16.8 40.1.984649.3.579.2.462 Unknown [id number] 2.16.8 40.1.302695.3.579.2.462 Unknown [id number] 2.16.8 40.1.891574.3.579.2.462 Unknown [id number] 2.16.8 40.1.507448.3.579.2.462 Unknown [id number] 2.16.8 40.1.014859.3.579.2.462 Unknown [id number] 2.16.8 40.1.923847.3.579.2.462 Unknown [id number] 2.16.8 40.1.755052.3.579.2.462 Unknown [id number] 2.16.8 40.1.243924.3.579.2.462 Social History Date Type Detail Facility Start: 11-29-2021 End: 10-09-2023 Tobacco smoking status NHIS Unknown if ever smoked [facility] Start: 2000 Sex Assigned At Female [facility] Start: 11-04-2024 End: 06-22-2025 Tobacco smoking status NHIS Never smoked tobacco (finding) [facility] Start: 11-15-2024 End: 12-27-2024 Sex Female (finding) [facility] Sex [facility] NEGATED: Highlighted row No Social History Information Available No Social History Information Available [facility] Work Phone: Medical Equipment Procedure Code Equipment [...] Assessment Result Facility 12-08-2022 Cognitive function Voice/Name Emma Lomas [facility] [place]: Clinical Notes 11-02-2024 to 06-24-2025 Note Date & Type Note Facility 06-24-2025 Progress note Note Date/Time June 24, 2025 10:36am [facility] Medical Records Department [address] [place] [address] Progress Note - OBGYN 06/24/25924 MR#: [id number] Acct: [id number] Name: MICHELINE PERALES Rep #:[id number] : 2000 25 From: Irma Gandara CNM PCP: LUIS F Leiva Status:ADM I N Location: [place] [address] Subjective Subjective s/p on day #2, desires d/c to home. Objective Data Objective Data Vital Signs: Vital Signs Temp Pulse Resp BP Pulse Ox O2 Del Method 98.2 F 86 16 114/72 98 Room Air 06/24/25 09:19 06/24/25 09:19 06/24/25 09:19 06/24/25 09:19 06/24/25 09:19 06/24/25 09:19 Oxygen Delivery Method Room Air Weight: 191 lb Body Mass Index (BMI) 36.1 Intake & Output: Intake and Output for Last 24 Hours 06/22/25 06/23/25 06/24/25 23:59 23:59 23:59 Intake Total 1912.27 / 1912.27 Output Total 450 / 450 1500 / 1500 Balance 1462.27 / 1462.27 -1500 / -1500 Lab / Micro Data Attestation: I reviewed the patient's lab results. 06/22/25 15:45 ROS Constitutional Constitutional: Reports systems reviewed and no addt'l complaints, except as documented Gastrointestinal Gastrointestinal: Reports systems reviewed and no addt'l complaints, except as documented Genitourinary Genitourinary: Reports systems reviewed and no addt'l complaints, except as documented Neurologic Neurologic: Reports systems reviewed and no addt'l complaints, except as documented Physical Exam Const alert, oriented x3 and no apparent distress General Appearance: cooperative and comfortable Orientation / Consciousness: awake, oriented to person, oriented to place and oriented to time HEENT normocephalic Resp normal respiratory effort and normal air movement Resp Narrative: Respirations eased & unlabored. Uterus Palpation: uterus fundus firm (u/1, small amt of dark red lochia, intact perineum.) Neuro oriented x3 Charges/Coding Multi Select Codes Urinary/Genital Urinary/Genital CPT Codes: 73303 CARE AFTER DELIVERY and No Charge Assessment & Plan (1) Supervision of high-risk : QUALIFIERS: Trimester: third trimester Qualified Code(s): O09.93 - Supervision of high risk , unspecified, third trimester COMMENT: PRR, , ADONIS 06/26/25, surprise PC Romario, Subhash PLAN: F/u in office at 6 wks. 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 on levothyroxine 75 mcg.TSH receptor antibody neg. PLAN: Continue as prescribed, f/u with PCP/prescriber prn. PLAN: Plan s/p PPD # 2 1. routine post delivery care 2. breast feeding- support given 3. rh positive 4. rubella immune 5. f/u in office in 6 wks 06/24/25 09 <Electronically signed by Irma Gandara CNM> Cosigner Signature (if applicable): CC: ~ Signed [facility] Work Phone: 1(101) 259-940810-18-2025 Progress note [facility] Medical Records Department [address] [place] [id number] Progress Note - OBGYN 06/24/25924 MR#: [id number] Acct: [id number] Name: MICHELINE PERALES Rep #:[id number] : 2000 25 From: Irma Gandara CNM PCP: LUIS F Leiva Status:ADM I N Location: [place]-0 Subjective Subjective s/p on day #2, desires d/c to home. Objective Data Objective Data Vital Signs: Vital Signs Temp Pulse Resp BP Pulse Ox O2 Del Method 98.2 F 86 16 114/72 98 Room Air 06/24/25 09:19 06/24/25 09:19 06/24/25 09:19 06/24/25 09:19 06/24/25 09:19 06/24/25 09:19 Oxygen Delivery Method Room Air Weight: 191 lb Body Mass Index (BMI) 36.1 Intake & Output: Intake and Output for Last 24 Hours 06/22/25 06/23/25 06/24/25 23:59 23:59 23:59 Intake Total 1912.27 / 1912.27 Output Total 450 / 450 1500 / 1500 Balance 1462.27 / 1462.27 -1500 / -1500 Lab / Micro Data Attestation: I reviewed the patient's lab results. 06/22/25 15:45 ROS Constitutional Constitutional: Reports systems reviewed and no addt'l complaints, except as documented Gastrointestinal Gastrointestinal: Reports systems reviewed and no addt'l complaints, except as documented Genitourinary Genitourinary: Reports systems reviewed and no addt'l complaints, except as documented Neurologic Neurologic: Reports systems reviewed and no addt'l complaints, except as documented Physical Exam Const alert, oriented x3 and no apparent distress General Appearance: cooperative and comfortable Orientation / Consciousness: awake, oriented to person, oriented to place and oriented to time HEENT normocephalic Resp normal respiratory effort and normal air movement Resp Narrative: Respirations eased & unlabored. Uterus Palpation: uterus fundus firm (u/1, small amt of dark red lochia, intact perineum.) Neuro oriented x3 Charges/Coding Multi Select Codes Urinary/Genital Urinary/Genital CPT Codes: 87485 CARE AFTER DELIVERY and No Charge Assessment & Plan (1) Supervision of high-risk : QUALIFIERS: Trimester: third trimester Qualified Code(s): O09.93 - Supervision of high risk , unspecified, third trimester COMMENT: PRR, , ADONIS 06/26/25, surprise PC Romario, Subhash PLAN: F/u in office at 6 wks. 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 on levothyroxine 75 mcg.TSH receptor antibody neg. PLAN: Continue as prescribed, f/u with PCP/prescriber prn. PLAN: Plan s/p PPD # 2 1. routine post delivery care 2. breast feeding- support given 3. rh positive 4. rubella immune 5. f/u in office in 6 wks 06/24/25 0936 Cosigner Signature (if applicable): CC: ~ Signed [facility]10-17-2025 Progress note Author Rocio Persaud [facility] Note Date/Time June 23, 2025 2 :03pm [facility] Medical Records Department [address] [place] [address] Progress Note - OBGYN 06/23/25 1302 MR#: [id number] Acct: [id number] Name: MICHELINE PERALES Rep #:[id number] : 2000 25 From: Rocio smith MD PCP: LUIS F Leiva Status:ADM I N Location: [place] [address] Subjective Subjective Patient doing well without complaints. Tolerating PO. Ambulating and voiding without difficulty. feeding well. Denies chest pain, shortness of breath,calf pain/swelling, fevers, chills, lightheadedness. Objective Data Objective Data Vital Signs: Vital Signs Temp Pulse Resp BP Pulse Ox O2 Del Method 98 F 85 16 109/62 98 Room Air 06/23/25 12:07 06/23/25 12:08 06/23/25 12:07 06/23/25 12:08 06/23/25 12:08 06/23/25 12:07 Oxygen Delivery Method Room Air Weight: 191 lb Body Mass Index (BMI) 36.1 Intake & Output: Intake and Output for Last 24 Hours 06/21/25 06/22/25 06/23/25 23:59 23:59 23:59 Intake Total 1912.27 / 1912.27 Output Total 450 / 450 1500 / 1500 Balance 1462.27 / 1462.27 -1500 / -1500 Lab / Micro Data 06/22/25 15:45 Labs: Laboratory Results - last 24 hr 06/22/25 15:45: WBC 11.3 H, RBC 4.14 L, Hgb 12.8, Hct 37.2, MCV 89.9, MCH 30.9, MCHC 34.4, RDW Std Deviation 45.0 H, RDW Coeff of Leisa 13.9, Plt Count 207, MPV 11.4, Immature Gran % (Auto) 0.900, Neut % (Auto) 76.8 H, Lymph % (Auto) 16.9 L,[place] % (Auto) 4.5, Eos % (Auto) 0.7, Baso % (Auto) 0.2, Absolute Neuts (auto) 8.7 H, Absolute Lymphs (auto) 1.91, Nucleated RBC % 0, Syphilis Total Ab Nonreactive, Blood Type O POSITIVE, Antibody Screen NEGATIVE ROS Constitutional Constitutional: Reports systems reviewed and no addt'l complaints, except as documented Cardiovascular Cardiovascular: Reports systems reviewed and no addt'l complaints, except as documented Respiratory/Chest Respiratory/Chest: Reports systems reviewed and no addt'l complaints, except as documented Gastrointestinal Gastrointestinal: Reports systems reviewed and no addt'l complaints, except as documented Physical Exam Const alert, oriented x3 and no apparent distress HEENT Head and Scalp: atraumatic Resp normal respiratory effort GI soft to palpation and non-tender Bimanual Exam - Vag & Uterus: uterus non-tender Uterus Palpation: uterus fundus firm (below Umbilicus) Assessment & Plan (1) Hx of one miscarriage: COMMENT: 2022 (2) Supervision of high-risk : QUALIFIERS: Trimester: third trimester Qualified Code(s): O09.93 - Supervision of high risk , unspecified, third trimester COMMENT: PRR, , ADONIS 06/26/25, surprise PC Romario, Subhash (3) : QUALIFIERS: Weeks of gestation: 39 weeks Qualified Code(s): Z3A.39 - 39 weeks gestation of COMMENT: Neg GBS. declined NIPT & Carrier testing. 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 on levothyroxine 75 mcg.TSH receptor antibody neg. PLAN: Plan routine care 06/23/25 1303 <Electronically signed by Rocio Persaud MD> Cosigner Signature (if applicable): CC: ~ Signed [facility] Work Phone: 1(938) 897-656010-17-2025 Progress note [facility] Medical Records Department [address] [place] [address] Progress Note - OBGYN 06/23/25 1302 MR#: [id number] Acct: [id number] Name: MICHELINE PERALES Rep #:[id number] : 2000 25 From: Rocio smith MD PCP: LUIS F Leiva Status:ADM I N Location: [place] 893065-1 Subjective Subjective Patient doing well without complaints. Tolerating PO. Ambulating and voiding without difficulty. infant feeding well. Denies chest pain, shortness of breath,calf pain/swelling, fevers, chills, lightheadedness. Objective Data Objective Data Vital Signs: Vital Signs Temp Pulse Resp BP Pulse Ox O2 Del Method 98 F 85 16 109/62 98 Room Air 06/23/25 12:07 06/23/25 12:08 06/23/25 12:07 06/23/25 12:08 06/23/25 12:08 06/23/25 12:07 Oxygen Delivery Method Room Air Weight: 191 lb Body Mass Index (BMI) 36.1 Intake & Output: Intake and Output for Last 24 Hours 06/21/25 06/22/25 06/23/25 23:59 23:59 23:59 Intake Total 1912.27 / 1912.27 Output Total 450 / 450 1500 / 1500 Balance 1462.27 / 1462.27 -1500 / -1500 Lab / Micro Data 06/22/25 15:45 Labs: Laboratory Results - last 24 hr 06/22/25 15:45: WBC 11.3 H, RBC 4.14 L, Hgb 12.8, Hct 37.2, MCV 89.9, MCH 30.9, MCHC 34.4, RDW Std Deviation 45.0 H, RDW Coeff of Leisa 13.9, Plt Count 207, MPV 11.4, Immature Gran % (Auto) 0.900, Neut% (Auto) 76.8 H, Lymph % (Auto) 16.9 L,[place] % (Auto) 4.5, Eos % (Auto) 0.7, Baso % (Auto) 0.2, Absolute Neuts (auto) 8.7 H, Absolute Lymphs (auto) 1.91, Nucleated RBC % 0, Syphilis Total Ab Nonreactive, Blood Type O POSITIVE, Antibody Screen NEGATIVE ROS Constitutional Constitutional: Reports systems reviewed and no addt'l complaints, except as documented Cardiovascular Cardiovascular: Reports systems reviewed and no addt'l complaints, except as documented Respiratory/Chest Respiratory/Chest: Reports systems reviewed and no addt'l complaints, except as documented Gastrointestinal Gastrointestinal: Reports systems reviewed and no addt'l complaints, except as documented Physical Exam Const alert, oriented x3 and no apparent distress HEENT Head and Scalp: atraumatic Resp normal respiratory effort GI soft to palpation and non-tender Bimanual Exam - Vag & Uterus: uterus non-tender Uterus Palpation: uterus fundus firm (below Umbilicus) Assessment & Plan (1) Hx of one miscarriage: COMMENT: 2022 (2) Supervision of high-risk : QUALIFIERS: Trimester: third trimester Qualified Code(s): O09.93 - Supervision of high risk , unspecified, third trimester COMMENT: PRR, , ADONIS 06/26/25, surprise PC Romario, Subhash (3) : QUALIFIERS: Weeks of gestation: 39 weeks Qualified Code(s): Z3A.39 - 39 weeks gestation of COMMENT: Neg GBS. declined NIPT & Carrier testing. 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 on levothyroxine 75 mcg.TSH receptor antibody neg. PLAN: Plan routine care 06/23/25 1303 Cosigner Signature (if applicable): CC: ~ Signed [facility]10-16-2025 Discharge summary Author Bambi Quiroz [facility] Note Date/Time June 22, 2025 9 :40pm [facility] System Medical Records Department [address] [place] [address] Instructions for Home/Discharge Instructions 06/22/252038 MR#: [id number] Acct: [id number] Name: MICHELINE PERALES Rep #:[id number] : 2000 25 From: Bambi Callaway DO PCP: LUIS F Leiva Status:ADM I N Discharge Instructions DC O2, CPAP, BIPAP needs Home O2 Discharge instructions: No Dressing / Incision Discharge Activity: Return to Normal Activity, May Not Drive (while taking narcotic pain medications.) and May Shower May resume sexual activity in: 4-6 weeks Dressing / Incision Call your doctor if your incision/area has: Continuous Slow Oozing, Sudden Increased Bleeding, Increased Pain/ Swelling, Increased Redness and Foul Smelling Discharge Follow Up Care Please Follow Up With: Bambi Callaway DO When: Call [phone] to make an appointment with your doctor in 6 weeks. If you had elevated blood pressure or 4th degree laceration, you will need to be seen in 2 weeks. Test Results: Test results from this visit will be discussed in further detail at your follow- up appointment, if applicable. Discharge Plan Admission Admit Date/Time: 06/22/25 15:36 Attending Provider: Bambi Callaway Primary Care Provider: Abdirizak Levy Discharge Orders/Prescriptions Prescriptions: No Action vitamin B complex Tablet 1 tab PO QDAY Fortify Probiotic 50 billion cell-50 mg capsule,delayed release(DR/EC) 2 cap PO DAILY magnesium 200 mg tablet 400 mg PO QDAY ferrous sulfate 27 mg iron tablet 27 mg PO QDAY levothyroxine 75 mcg capsule 75 mcg PO QDAY Qty: 30 12RF Rx Instructions: take 1/2 tablet daily on an empty stomach, 30-60min prior to eating or drinking Referrals / Follow Up: Abdirizak Levy PA [Primary Care Provider, Urgent Care] 06/22/252039<Electronically signed by Bambi Callaway DO>Bambi Callaway DO CC: LUIS F Leiva ~ Signed [facility] Work Phone: 1([phone]) 199-590010-16-2025 Discharge summary [facility] Medical Records Department [address] [place] [id number] Instructions for Home/Discharge Instructions 06/22/252038 MR#: [id number] Acct: [id number] Name: MICHELINE PERALES Rep #:[id number] : 2000 25 From: Bambi Callaway DO PCP: LUIS F Leiva Status:ADM I N Discharge Instructions DC O2, CPAP, BIPAP needs Home O2 Discharge instructions: No Dressing / Incision Discharge Activity: Return to Normal Activity, May Not Drive (while taking narcotic pain medications.) and May Shower May resume sexual activity in: 4-6 weeks Dressing / Incision Call your doctor if your incision/area has: Continuous Slow Oozing, Sudden Increased Bleeding, Increased Pain/ Swelling, Increased Redness and Foul Smelling Discharge Follow Up Care Please Follow Up With: Bambi Callaway DO When: Call [phone] to make an appointment with your doctor in 6 weeks. If you had elevated blood pressure or 4th degree laceration, you will need to be seen in 2 weeks. Test Results: Test results from this visit will be discussed in further detail at your follow- up appointment, if applicable. Discharge Plan Admission Admit Date/Time: 06/22/25 15:36 Attending Provider: Bambi Callaway Primary Care Provider: Abdirizak Levy Discharge Orders/Prescriptions Prescriptions: No Action vitamin B complex Tablet 1 tab PO QDAY Fortify Probiotic 50 billion cell-50 mg capsule,delayed release(DR/EC) 2 cap PO DAILY magnesium 200 mg tablet 400 mg PO QDAY ferrous sulfate 27 mg iron tablet 27 mg PO QDAY levothyroxine 75 mcg capsule 75 mcg PO QDAY Qty: 30 12RF Rx Instructions: take 1/2 tablet daily on an empty stomach, 30-60min prior to eating or drinking Referrals / Follow Up: Abdirizak Levy PA [Primary Care Provider, Urgent Care] 06/22/252039Jenncurtis Callaway DO CC: LUIS F Leiva ~ Signed [facility]10-16-2025 Procedure note [facility] Medical Records Department [address] [place] [address] OB Vaginal Delivery 06/22/252034 MR#: [id number] Acct: [id number] Name: MICHELINE PERALES Rep #:[id number] : 2000 25 From: Bambi Callaway DO PCP: LUIS F Leiva Status:ADM I N Location: [place] [address]-1 Assessment & Plan (1) Supervision of high-risk : QUALIFIERS: Trimester: third trimester Qualified Code(s): O09.93 - Supervision of high risk , unspecified, third trimester COMMENT: PRR, , ADONIS 06/26/25, surprise PC Roamrio, Subhash (2) Hx of one miscarriage: COMMENT: 2022 (3) : QUALIFIERS: Weeks of gestation: 39 weeks Qualified Code(s): Z3A.39 - 39 weeks gestation of COMMENT: Neg GBS. declined NIPT & Carrier testing. 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 on levothyroxine 75 mcg.TSH receptor antibody neg. Maternal Data Information ADONIS Calculator Estimated Delivery Date Method Current WG Current Estimate 06/26/25 Ultrasound #1 39w 3d Final ADONIS: 06/26/25 Vaginal Delivery Maternal Presentation Maternal Presentation: Active Labor Vaginal Delivery Information Procedure Performed: Spontaneous Vaginal Delivery Surgeon/Practitioner: Bambi Callaway Date of Procedure: 06/22/25 Pre-Procedure Diagnosis: 39 weeks 3 days, , active labor Post-Procedure Diagnosis: 39 weeks 3 days, , active labor Type of anesthesia: Epidural Estimated Blood Loss: 50cc Time of Delivery: 20:21 Findings Description of procedure: Patient began pushing and delivered the head in the DENISE presentation. The head was delivered atraumatically. The anterior and posterior shoulders delivered without complication followed by the rest of the and the infant was placed on the maternal abdomen. Delayed cord clamping was employed for approximately 60 seconds. Cord was clamped and cut and gentle traction was applied to the cord and the placenta delivered spontaneously immediately following it was noted to be intact with three-vessel cord. The perineum and vagina were inspected and noted to have no laceration. EBL was 50cc. Patient and tolerated delivery well. Procedure findings: viable male infant scores 9/9 To Presentation: Vertex Amniotic Membrane Rupture Type: Artificial Amniotic Fluid Description: Clear Placental Delivery Description: Spontaneous Placenta Disposition: [facility] Specimen collected: No Cord Vessel Description: 3 Vessels Cord Entanglement: None Infant A Gender: Male (1 minute): 9 (5 minute): 9 Delayed Cord Clamping: Yes Engineering Manager [employer] superannuation funds manager: No Post Vaginal Deli Medications given after delivery: IV Pitocin Episiotomy Description: None Laceration: None Complication Complications: No Multi Select Codes Urinary/Genital Urinary/Genital CPT Codes: 72275 Vaginal Delivery [facility] 06/22/252038 Cosigner Signature (if applicable): CC: Dr. Bambi Callaway DO; LUIS F Leiva~ Signed [facility]10-16-2025 Progress note Author Bambi Quiroz [facility] Note Date/Time June 22, 2025 6 :49pm [facility] System Medical Records Department [address] [place] [address] Progress Note 10/16/25 1747 MR#: [id number] Acct: [id number] Name: MICHELINE PERALES Rep #:[id number] : 2000 25 From: Bambi Callaway DO PCP: LUIS F Leiva Status:ADM I N Location: [place] [address] Progress Note patient is comfortable with epidural. She consents to AROM current tracing: FHT:120's Moderate variability reactive no decelerations category I tracing [place]: irregular contractions not picking up when on her side. cx 5/80/-1, membranes ruptured with a large amount of clear fluid. IUPC placed. reviewed tracing abnormalities since last note: no changes A/P: active labor at term pitocin as needed for augmentation discussed pending contraction pattern with the IUPC. 06/22/251748 <Electronically signed by Bambi Callaway DO> Bambi Callaway DO Cosigner Signature (if applicable): CC: ~ Signed [facility] Work Phone: 1(370) 294-551910-16-2025 History and physical note Author Bambi [facility] Note Date/Time June 22, 2025 4 :57pm [facility] System Medical Records Department [address] [place] [address] H&P Exam - [employer] 06/22/25 1554 MR#: [id number] Acct: [id number] Name: MICHELINE PERALES Rep #:[id number] : 2000 25 From: Bambi Callaway DO PCP: LUIS F Leiva Status:ADM I N Location: [place] [address] HPI - General General Date of Admission: 06/22/25 HPI Narrative MICHELINE PERALES, is a 25 y/o @ 39 weeks 3 days who presents to L&D in active labor. She was found to be 3-4 cm in the office prior to presenting to L&D. She sat on a birthing ball and walked for 2 hours and stated that if she were home she would come in now. Contractions are becoming closer together and cervix changed to 4.5/80/-2 with bulging membranes. 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 Wears glasses Thyroid disease Headache Shortness of breath on exertion Leg cramps Non-smoker History of irregular heartbeat Vaginal pain Pelvic pain Vaginal delivery Thyroid disorder Hypothyroidism affecting No significant medical problems Acute appendicitis Abdominal pain Home Medications ?Medication ?Instructions ?Recorded ?Last Taken ?Type Lacto-B.anim,bifid-inulin 50 2 cap PO DAILY 11/04/24 U nknown History billion cell-50 mg capsule,delay release (Fortify Probiotic) magnesium 200 mg tablet 400 mg PO QDAY 11/04/24 Unkn own History vitamin B complex 1 tab PO QDAY 11/04/24 Unkno wn History ferrous sulfate 27 mg iron tablet 27 mg PO QDAY Unknown History levothyroxine 75 mcg capsule 75 mcg PO QDAY #30 caps 0 04/20/25 Unknown Rx Allergy/AdvReac Type Severity Reaction Status Date / Time No Known Allergies Allergy Verified 06/22/25 12:23 Family History Brother Cancer, Onset Age: 16 Acute lymphocytic Leukemia Surgical History Status post dilatation and curettage History of laparoscopic appendectomy (~02/2019) Social History adopted: No household members: spouse and children housing: house number of children: 1 current occupational status: unemployed current occupation: [employer] pets and animals: No history of recent travel: No sexually active: Yes Smoking Status: Never smoker second hand exposure: No alcohol intake: never substance use type: does not use diet: other well-balanced diet: daily or most days caffeine: No eating out: rarely or never during the past year weight has: remained stable what type of physical activity do you participate in: none radha/mu-ism: None seatbelt use: always do you feel safe at home: Yes additional social history: [employer] History 3 Elective abortions Hx Para 1 Spontaneous abortions 1 Hx # Term Pregnancies Ectopic pregnancies Hx # Pregnancies Multiple births # of living children 1 Past Pregnancies Del. Date Name GA/Weeks Outcome Route Bth Weight Gen Labor Lgth Anesthesia Del Jaymeatn Provider FOB Unknown December 2022 spontaneous 12/17/21 Romario 39 live - full term 7lbs 3oz Male epi dural [facility] Alan Quiroz Subhash Delivery Date: Last Updated by: Eileen Harrington D&C SM Delivery Date: 12/17/21 Last Updated by: Christina Russell SROM Visit Details Expected Delivery Route/Plan Labor Preferences- CB/BF classes: no labor support person: Subhash labor intervention preferences: [] pain management options preferred: probable epidural cut cord/dad catch: cord : yes PP control planned: discussed discussed possible routes of delivery and associated risks: [] special requests: [] Plans Covid status: [] Flu vaccine: [] Tdap vaccine: declines Rhogam: NA LARC form signed: yes movement and labor precautions reviewed. Problem list reviewed and updated with the most current plan of care details and appropriate orders placed. Relevant counseling for the gestational age provided. Continue routine care and follow up unless otherwise noted in visit notes/problem list details OB Flowsheet Initial Weight: Not Recorded Date -?-?-?-?-?-?-?-?-?-?-?-?- EGA [...] lof go od fm no regualr ctx 06/14/25 -?-?-?-?-?-?-?-?-?-?-?-?- 38w 2d 190 lb 7 oz 105/68 Nega tive -?-?-?-?-?-?-?-?-?-?-?-?- Negative 135 38 Cephalic 3 -?-?-?-?-?-?-?-?-?-?-?-?- SM- no vb lof go od fm no reuglar ctx 06/22/25 -?-?-?-?-?-?-?--?-?-?-?-?- 39w 3d 192 lb 6 oz 118/67 Nega tive -?-?-?-?-?-?-?-?-?-?-?-?- Negative 130 40 Cephalic 4 -?-?-?-?-?-?-?-?-?-?-?-?- 70 -2 KW- no vb/ lof. feeling cramping and having loose stools. good fm. ROS Constitutional Constitutional: Denies change in weight, fatigue, fever(s), headache(s), poor appetite or weakness Eyes Eyes: Denies blurry vision, change in vision, seeing flashes or spots in vision ENT HEENT: Denies dizziness, headache(s), loss taste/smell or sore throat Cardiovascular Cardiovascular: Denies chest pain, dizziness, dyspnea, irregular heart rhythm, leg edema, palpitations, rapid heart rate or vomiting Respiratory/Chest Respiratory/Chest: Denies chest tightness, cough, dyspnea or breast pain Gastrointestinal Gastrointestinal: Denies abdominal pain, anorexia, constipation, cramping, diarrhea, hemorrhoids, vomiting or weight changes Genitourinary Genitourinary: Denies dysuria, flank pain, genital lesions, genital pain, urinary frequency or urinary urgency Musculoskeletal Musculoskeletal: Denies back pain, difficulty walking, joint pain, limited range of motion, muscle cramps or numbness Integumentary Integumentary: Denies lesions or unusual bruising Neurologic Neurologic: Denies abnormal movements, abnormal speech, dizziness, numbness, seizure-like activity or syncope Psychiatric Psychiatric: Denies anxiety, behavioral changes, change in appetite, change in libido, cognitive impairment, confusion, depression, difficulty concentrating, hallucinations or suicidal thoughts Endocrine Endocrinology: Denies excessive sweating, polydipsia or polyuria Hematologic/Lymphatic Hematologic/Lymphatic: Denies easy bleeding, easy bruising or lymphadenopathy Allergic/Immunologic Allergic/Immunologic: Denies itchy eyes, lip swelling, seasonal rhinorrhea, rhinitis, throat swelling, tongue swelling, eczemia, wheezing or asthma Vital Signs Vital Signs Vital Signs: 06/22/25 12:06/22/25 12:01 06/22/25 12:01 Temperature Temperature Source Tympanic Pulse Rate Respiratory Rate 12 Blood Pressure BP Systolic BP Diastolic Pulse Ox 99 06/22/25 12:01 06/22/25 12:01 06/22/25 12:01 Temperature 97.8 F Temperature Source Pulse Rate 75 Respiratory Rate Blood Pressure 103/58 L BP Systolic 103 BP Diastolic 58 Pulse Ox 06/22/25 12:01 Temperature 98.4 F Temperature Source Pulse Rate Respiratory Rate Blood Pressure BP Systolic BP Diastolic Pulse Ox Weight Weight: 191 lb Body Mass Index (BMI) 36.1 Physical Exam Const alert, oriented x3, no apparent distress and healthy appearing General Appearance: cooperative; Negative for anxious HEENT normocephalic Face and Sinus: normal facial exam Eyes EOMs intact bilaterally and no scleral icterus General Eye: normal appearance of both eyes Neck full ROM and supple Lymph Lymphatic: no lymphadenopathy noted Resp normal respiratory effort Effort and Inspection: able to speak in complete sentences Cardio regular rate GI soft to palpation and non-tender Inspection: gravid Palpation: soft; Negative for tender external exam normal Narrative: cx is 4.5/80/0-2 vertex with bulging membranes. Back/Spine no CVA tenderness Extremity normal to inspection, full ROM and no clubbing, cyanosis or edema General Extremity: Negative for calf tenderness or edema Skin Lesions: no lesions Rashes: no rashes Psych mental status grossly normal Labs Labs Labs: Blood Type O POSITIVE Antibody Screen NEGATIVE Hct, (37-47) 35.7 % L Hgb, (12.0-15.0) 12.1 g/dL Obstetrics Ultrasound Syphilis Total Ab, (Nonreactive) Nonreactive Rubella IgG Antibody, (Nonreactive) REAC Hep Bs Antigen, (Nonreactive) Nonreactive Hepatitis C Antibody, (Nonreactive) Nonreactive Chlamydia DNA (KIM), (Negative) Negative N.gonorrhoeae DNA (KIM), (Negative) Negative HIV 1&2 Antibody, (Nonreactive) Nonreactive Glucose 1 Hr 50 gm, (70-140) 111 mg/dL Miscellaneous Test Pending Assessment & Plan (1) Supervision of high-risk : QUALIFIERS: Trimester: third trimester Qualified Code(s): O09.93 - Supervision of high risk , unspecified, third trimester COMMENT: PRR, , ADONIS 06/26/25, surprise PC Romario, Subhash (2) Hx of one miscarriage: COMMENT: 2022 (3) : QUALIFIERS: Weeks of gestation: 39 weeks Qualified Code(s): Z3A.39 - 39 weeks gestation of COMMENT: Neg GBS. declined NIPT & Carrier testing. 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 on levothyroxine 75 mcg.TSH receptor antibody neg. PLAN: Plan Patient presents IAL, plan expectant management for , pitocin/AROM PRN if needed. Pain management: plans epidural. GBS positive plan IV PCN. Management of any complications: see above I have reviewed the [facility] and made any clinically relevant updates. 06/22/25 6747 <Electronically signed by Bambi Callaway DO> Cosigner Signature (if applicable): CC: Dr. Bambi Callaway DO; LUIS F Leiva~ Signed [facility] Work Phone: 1(586) 907-925510-16-2025 Progress note [facility] Medical Records Department [address] [place] [address] Progress Note 06/22/25 7852 MR#: [id number] Acct: [id number] Name: MICHELINE PERALES Rep #:[id number] : 2000 25 From: Bambi Callaway DO PCP: LUIS F Leiva Status:ADM I N [facility] Progress Note patient is comfortable with epidural. She consents to AROM current tracing: FHT:120's Moderate variability reactive no decelerations category I tracing [place]: irregular contractions not picking up when on her side. cx 5/80/-1, membranes ruptured with a large amount of clear fluid. IUPC placed. reviewed tracing abnormalities since last note: no changes A/P: active labor at term pitocin as needed for augmentation discussed pending contraction pattern with the IUPC. 06/22/25 1749 Bambi Callaway DO Cosigner Signature (if applicable): CC: ~ Signed [facility]10-16-2025 History and physical note [facility] Medical Records Department [address] [place] [address] H&P Exam - [employer] 06/22/25 1554 MR#: [id number] Acct: [id number] Name: MICHELINE PERALES Rep #:[id number] : 2000 25 From: Bambi Callaway DO PCP: LUIS F Leiva Status:ADM I N Location: [place] [id number] HPI - General General Date of Admission: 06/22/25 HPI Narrative MICHELINE PERALES, is a 25 y/o @ 39 weeks 3 days who presents to L&D in active labor. She was found to be 3-4 cm in the office prior to presenting to L&D. She sat on a birthing ball and walked for 2 hours and stated that if she were home she would come in now. Contractions are becoming closer together and cervix changed to 4.5/80/-2 with bulging membranes. 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 Wears glasses Thyroid disease Headache Shortness of breath on exertion Leg cramps Non-smoker History of irregular heartbeat Vaginal pain Pelvic pain Vaginal delivery Thyroid disorder Hypothyroidism affecting No significant medical problems Acute appendicitis Abdominal pain Home Medications ?Medication ?Instructions ?Recorded ?Last Taken ?Type Lacto-B.anim,bifid-inulin 50 2 cap PO DAILY 11/04/24 U nknown History billion cell-50 mg capsule,delay release (Fortify Probiotic) magnesium 200 mg tablet 400 mg PO QDAY 11/04/24 Unkn own History vitamin B complex 1 tab PO QDAY 11/04/24 Unkno wn History ferrous sulfate 27 mg iron tablet 27 mg PO QDAY Unknown History levothyroxine 75 mcg capsule 75 mcg PO QDAY #30 caps 0 04/20/25 Unknown Rx Allergy/AdvReac Type Severity Reaction Status Date / Time No Known Allergies Allergy Verified 06/22/25 12:23 Family History Brother Cancer, Onset Age: 16 Acute lymphocytic Leukemia Surgical History Status post dilatation and curettage History of laparoscopic appendectomy (~02/2019) Social History adopted: No household members: spouse and children housing: house number of children: 1 current occupational status: unemployed current occupation: [employer] pets and animals: No history of recent travel: No sexually active: Yes Smoking Status: Never smoker second hand exposure: No alcohol intake: never substance use type: does not use diet: other well-balanced diet: daily or most days caffeine: No eating out: rarely or never during the past year weight has: remained stable what type of physical activity do you participate in: none radha/mu-ism: None seatbelt use: always do you feel safe at home: Yes additional social history: [employer] History 3 Elective abortions [...] 12/17/21 Last Updated by: Christina Russell SROM Visit Details Expected Delivery Route/Plan Labor Preferences- CB/BF classes: no labor support person: Subhash labor intervention preferences: [] pain management options preferred: probable epidural cut cord/dad catch: cord : yes PP control planned: discussed discussed possible routes of delivery and associated risks: [] special requests: [] Plans Covid status: [] Flu vaccine: [] Tdap vaccine: declines Rhogam: NA LARC form signed: yes movement and labor precautions reviewed. Problem list reviewed and updated with the most current plan of care details and appropriate ordersplaced. Relevant counseling for the gestational age provided. Continue routine care and follow up unless otherwise noted in visit notes/problem list details OB Flowsheet Initial Weight: Not Recorded Date -?-?-?-?-?-?-?-?-?-?-?-?- EGA [...] lof go od fm no regualr ctx 06/14/25 -?-?-?-?-?-?-?-?-?-?-?-?- 38w 2d 190 lb 7 oz 105/68 Nega tive -?-?-?-?-?-?-?-?-?-?-?-?- Negative 135 38 Cephalic 3 -?-?-?-?-?-?-?-?-?-?-?-?- SM- no vb lof go od fm no reuglar ctx 06/22/25 -?-?-?-?-?-?-?--?-?-?-?-?- 39w 3d 192 lb 6 oz 118/67 Nega tive -?-?-?-?-?-?-?-?-?-?-?-?- Negative 130 40 Cephalic 4 -?-?-?-?-?-?-?-?-?-?-?-?- 70 -2 KW- no vb/ lof. feeling cramping and having loose stools. good fm. ROS Constitutional Constitutional: Denies change in weight, fatigue, fever(s), headache(s), poor appetite or weakness Eyes Eyes: Denies blurry vision, change in vision, seeing flashes or spots in vision ENT HEENT: Denies dizziness, headache(s), loss taste/smell or sore throat Cardiovascular Cardiovascular: Denies chest pain, dizziness, dyspnea, irregular heart rhythm, leg edema, palpitations, rapid heart rate or vomiting Respiratory/Chest Respiratory/Chest: Denies chest tightness, cough, dyspnea or breast pain Gastrointestinal Gastrointestinal: Denies abdominal pain, anorexia, constipation, cramping, diarrhea, hemorrhoids, vomiting or weight changes Genitourinary Genitourinary: Denies dysuria, flank pain, genital lesions, genital pain, urinary frequency or urinary urgency Musculoskeletal Musculoskeletal: Denies back pain, difficulty walking, joint pain, limited range of motion, muscle cramps or numbness Integumentary Integumentary: Denies lesions or unusual bruising Neurologic Neurologic: Denies abnormal movements, abnormal speech, dizziness, numbness, seizure-like activity or syncope Psychiatric Psychiatric: Denies anxiety, behavioral changes, change in appetite, change in libido, cognitive impairment, confusion, depression, difficulty concentrating, hallucinations or suicidal thoughts Endocrine Endocrinology: Denies excessive sweating, polydipsia or polyuria Hematologic/Lymphatic Hematologic/Lymphatic: Denies easy bleeding, easy bruising or lymphadenopathy Allergic/Immunologic Allergic/Immunologic: Denies itchy eyes, lip swelling, seasonal rhinorrhea, rhinitis, throat swelling, tongue swelling, eczemia, wheezing or asthma Vital Signs Vital Signs Vital Signs: 06/22/25 12:01 06/22/25 12:01 06/22/25 12:01 Temperature Temperature Source Tympanic Pulse Rate Respiratory Rate 12 Blood Pressure BP Systolic BP Diastolic Pulse Ox 99 06/22/25 12:06/22/25 12:01 06/22/25 12:01 Temperature 97.8 F Temperature Source Pulse Rate 75 Respiratory Rate Blood Pressure 103/58 L BP Systolic 103 BP Diastolic 58 Pulse Ox 06/22/25 12:01 Temperature 98.4 F Temperature Source Pulse Rate Respiratory Rate Blood Pressure BP Systolic BP Diastolic Pulse Ox Weight Weight: 191 lb Body Mass Index (BMI) 36.1 Physical Exam Const alert, oriented x3, no apparent distress and healthy appearing General Appearance: cooperative; Negative for anxious HEENT normocephalic Face and Sinus: normal facial exam Eyes EOMs intact bilaterally and no scleral icterus General Eye: normal appearance of both eyes Neck full ROM and supple Lymph Lymphatic: no lymphadenopathy noted Resp normal respiratory effort Effort and Inspection: able to speak in complete sentences Cardio regular rate GI soft to palpation and non-tender Inspection: gravid Palpation: soft; Negative for tender external exam normal Narrative: cx is 4.5/80/0-2 vertex with bulging membranes. Back/Spine no CVA tenderness Extremity normal to inspection, full ROM and no clubbing, cyanosis or edema General Extremity: Negative for calf tenderness or edema Skin Lesions: no lesions Rashes: no rashes Psych mental status grossly normal Labs Labs Labs: Blood Type O POSITIVE Antibody Screen NEGATIVE Hct, (37-47) 35.7 % L Hgb, (12.0-15.0) 12.1 g/dL Obstetrics Ultrasound Syphilis Total Ab, (Nonreactive) Nonreactive Rubella IgG Antibody, (Nonreactive) REAC Hep Bs Antigen, (Nonreactive) Nonreactive Hepatitis C Antibody, (Nonreactive) Nonreactive Chlamydia DNA (KIM), (Negative) Negative N.gonorrhoeae DNA (KIM), (Negative) Negative HIV 1&2 Antibody, (Nonreactive) Nonreactive Glucose 1 Hr 50 gm, (70-140) 111 mg/dL Miscellaneous Test Pending Assessment & Plan (1) Supervision of high-risk : QUALIFIERS: Trimester: third trimester Qualified Code(s): O09.93 - Supervision of high risk , unspecified, third trimester COMMENT: PRR, , ADONIS 06/26/25, surprise PC Romario, Subhash (2) Hx of one miscarriage: COMMENT: 2022 (3) : QUALIFIERS: Weeks of gestation: 39 weeks Qualified Code(s): Z3A.39 - 39 weeks gestation of COMMENT: Neg GBS. declined NIPT & Carrier testing. 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 on levothyroxine 75 mcg.TSH receptor antibody neg. PLAN: Plan Patient presents IAL, plan expectant management for , pitocin/AROM PRN if needed. Pain management: plans epidural. GBS positive plan IV PCN. Management of any complications: see above I have reviewed the [facility] and made any clinically relevant updates. 06/22/25 1603 Cosigner Signature (if applicable): CC: Dr. Bambi Callaway, DO; LUIS F Leiva~ Signed [facility]10-16-2025 Progress [facility] [address], [address] [place] [address] OFFICE VISIT Date of Service: 06/22/25 MR#: [id number] Acct: [id number] Name: MICHELINE PERALES Rep #: [id number] : 2000 Provider: BRAN Rojas Age/Sex: 25/F [place] [facility] [place] Status: Signed Intake Vital Signs 05/18/25 09:56 06/14/25 11:43 06/22/25 10:52 Height 5 ft 1 in 5 ft 1 in 5 ft 1 in Weight: 192 lb 6 oz BMI 36.3 BP 118/67 Intake Visit Reasons: 39 WK OB Chief Complaint: 39wk OB Therapeutic Radiologist Required: No Is patient in pain?: No Allergies No Known Allergies Allergy (Verified 06/22/25 10:51) Medications ?Medication ?Instructions ?Recorded ?Confirmed ?Type Lacto-B.anim,bifid-inulin 50 2 cap PO DAILY 11/04/24 1 History billion cell-50 mg capsule,delay release (Fortify Probiotic) magnesium 200 mg tablet 400 mg PO QDAY 11/04/2406/07 History vitamin B complex 1 tab PO QDAY 11/04/2406/22 History ferrous sulfate 27 mg iron tablet 27 mg PO QDAY 06/22/25 History levothyroxine 75 mcg capsule 75 mcg PO QDAY #30 caps 0 04/20/25 06/22/25 Rx Last Menstrual Period: 04/30/24 : No [...] 1 current occupational status: unemployed current occupation: [employer] pets and animals: No history of recent travel: No sexually active: Yes Smoking Status: Never smoker second hand exposure: No alcohol intake: never substance use type: does not use diet: other well-balanced diet: daily or most days caffeine: No eating out: rarely or never during the past year weight has: remained stable what type of physical activity do you participate in: none radha/mu-ism: None seatbelt use: always do you feel safe at home: Yes additional social history: [employer] History 3 Elective abortions [...] Last Updated by: Christina Russell SRADITHYA HPI 39 WK OB Details: MICHELINE PERALES is a 25 year old who presents for routine OB visit. OB Visit ADONIS Calculator Estimated Delivery Date Method Current WG Current Estimate 06/26/25 Ultrasound #1 39w 3d Expected Delivery Route/Plan Labor Preferences- CB/BF [...] 9w 4d 159 lb 4 oz 111/76 -?-?-?-?-?-?-?-?-?-?-?--?- 150 -?-?-?-?-?-?-?-?-?-?-?-?- SM- measuring co ns with [...] lof go od fm no regualr ctx 06/14/25 -?-?-?-?-?-?-?-?-?-?-?-?- 38w 2d 190 lb 7 oz 105/68 Nega tive -?-?-?-?-?-?-?-?-?-?-?-?- Negative 135 38 Cephalic 3 -?-?-?-?-?-?-?-?-?-?-?-?- SM- no vb lof go od fm no reuglar ctx 06/22/25 -?-?-?-?-?-?-?-?-?-?-?-?- 39w 3d 192 lb 6 oz 118/67 Nega tive -?-?-?-?-?-?-?-?--?-?-?-?- Negative 130 40 Cephalic 4 -?-?-?-?-?-?-?-?-?-?-?-?- 70 -2 KW- no vb/ lof. feeling cramping and having loose stools. good fm. 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 declined NIPT & Carrier testing. , nl [...] placed atthis visit. [place] appropriate handout given. Clinical Quality Measures Falls Risk Screening/Assistive Devices Have you fallen in the past year?: No 06/22/25 1109 s BRAN> Date _ Jacinta Martínez Signature: Date (if applicable) CC: ~ [facility]09-29-2025 Progress [facility] [address] [place] [address], [address] [place] [address] OFFICE VISIT Date of Service: 06/05/25 MR#: [id number] Acct: [id number] Name: MICHELINE PERALES Rep #: [id number] : 2000 Provider: Dr. Joshua Persaud MD Age/Sex: 25/F [place] [facility] [place]: Signed Intake Vital Signs 05/18/25 09:56 05/31/25 09:27 06/05/25 08:45 06/05/25 08:46 Height 5 ft 1 in 5 ft 1 in 5 ft 1 in 5 ft 1 in Weight: 189 lb BMI 35.6 BP 106/73 Intake Visit Reasons: 37 WK OB Therapeutic Radiologist Required: No Is patient in pain?: No [...] 1 current occupational status: unemployed current occupation: [employer] pets and animals: No history of recent travel: No sexually active: Yes Smoking Status: Never smoker second hand exposure: No alcohol intake: never substance use type: does not use diet: other well-balanced diet: daily or most days caffeine: No eating out: rarely or never during the past year weight has: remained stable what type of physical activity do you participate in: none radha/mu-ism: None seatbelt use: always do you feel safe at home: Yes additional social history: [employer] History 3 Elective abortions [...] ADONIS Calculator Estimated Delivery Date Method Current Current Estimate 06/26/25 Ultrasound #1 37w 0d [...] in the past year?: No 06/05/25 0919 souleymane CHAN> Date _ [facility] Signature: Date (if applicable) CC: ~ [facility]09-24-2025 [facility] [address] [place] [address], [address] [place] [address] OFFICE VISIT Date of Service: 05/31/25 MR#: [id number] Acct: [id number] Name: MICHELINE PERALES Rep #: [id number] : 2000 Provider: Dr. Joshua Persaud MD Age/Sex: 25/F [place] [facility] [place]: Signed Intake Vital Signs 04/20/25 09:21 05/18/25 09:56 05/31/25 09:25 05/31/25 09:27 Height 5 ft 1 in 5 ft 1 in 5 ft 1 in 5 ft 1 in Weight: 188 lb 3 oz BMI 35.5 BP 130/77 H Intake Visit Reasons: 36 wk ob Chief Complaint: 36wk OB Therapeutic Radiologist Required: No Is patient in pain?: No [...] 1 current occupational status: unemployed current occupation: [employer] pets and animals: No history of recent travel: No sexually active: Yes Smoking Status: Never smoker second hand exposure: No alcohol intake: never substance use type: does not use diet: other well-balanced diet: daily or most days caffeine: No eating out: rarely or never during the past year weight has: remained stable what type of physical activity do you participate in: none radha/mu-ism: None seatbelt use: always do you feel safe at home: Yes additional social history: [employer] History 3 Elective abortions [...] preference, Signs and Symptoms of Preeclampsia, Feeding No , Education and Family Medical [...] of gestation: 36 weeks Hypothyroidism due to Queenei's thyroiditis E03.8; E06.3 Assessment and Plan Assessment [...] in the past year?: No 05/31/25 0939 souleymane CHAN> Date _ Rocio Persaud MD [facility] Signature: Date (if applicable) CC: ~ [facility]09-11-2025 [facility] [address] [place] [address], [address] [place] [address] OFFICE VISIT Date of Service: 05/18/25 MR#: [id number] Acct: [id number] Name: ANGELLAMICHELINE R Rep #: [id number] : 2000 Provider: SANTIAGO Acosta Age/Sex: 25/F [place] [facility] [place]: Signed Intake Vital Signs 04/20/25 09:21 05/01/25 14:02 05/18/25 09:52 05/18/25 09:56 Height 5 ft 1 in 5 ft 1 in 5 ft 1 in 5 ft 1 in Weight: 185 lb 1 oz BMI 34.9 BP 106/67 Intake Visit Reasons: 34 wk ob Chief Complaint: 34 Week OB Therapeutic Radiologist Required: No Is patient in pain?: No [...] 1 current occupational status: unemployed current occupation: [employer] pets and animals: No history of recent travel: No sexually active: Yes Smoking Status: Never smoker second hand exposure: No alcohol intake: never substance use type: does not use diet: other well-balanced diet: daily or most days caffeine: No eating out: rarely or never during the past year weight has: remained stable what type of physical activity do you participate in: none radha/mu-ism: None seatbelt use: always do you feel safe at home: Yes additional social history: [employer] History 3 Elective abortions [...] preference, Signs and Symptoms of Preeclampsia, Feeding No , Education and Family Medical [...] routine care and follow up. 05/18/25 1005 s PAID INTERNSHIP PAID INTERNSHIP-C> Date _ Mariana [place] PA[employer] INTERNS[employer] PA[employer] INTERNSHIP-C Cosigner Signature: Date (if applicable) CC: ~ [facility]08-25-2025 [facility] [address], [address] [place] [address] OFFICE VISIT Date of Service: 05/01/25 MR#: [id number] Acct: [id number] Name: MICHELINE PERALES Rep #: [id number] : 2000 Provider: BRAN Rojas Age/Sex: 25/F [place] [facility] [place]: Signed Intake Vital Signs 04/20/25 09:21 04/20/25 13:17 05/01/25 14:02 Height 5 ft 1 in 5 ft 1 in 5 ft 1 in Weight: 180 lb 9 oz BMI 34.1 BP 116/78 Intake Visit Reasons: 32wk OB Therapeutic Radiologist Required: No Is patient in pain?: No Allergies No Known Allergies Allergy (Verified 05/01/25 14:01) Medications ?Medication ?Instructions ?Recorded ?Confirmed ?Type Lacto-B.anim,bifid-inulin 50 2 cap PO DAILY 11/04/24 0 05/01/25 History billion cell-50 mg capsule,delay release (Fortify Probiotic) magnesium 200 mg tablet 400 mg PO QDAY 11/04/24 08/01/29 History vitamin B complex 1 tab PO [...] 1 current occupational status: unemployed current occupation: [employer] pets and animals: No history of recent travel: No sexually active: Yes Smoking Status: Never smoker second hand exposure: No alcohol intake: never substance use type: does not use diet: other well-balanced diet: daily or most days caffeine: No eating out: rarely or never during the past year weight has: remained stable what type of physical activity do you participate in: none radha/mu-ism: None seatbelt use: always do you feel safe at home: Yes additional social history: [employer] History 3 Elective abortions [...] Russell SROM HPI 32wk OB Details: MICHELINE PEARLES is a 25 year old who presents [...] Symptoms of Preeclampsia, Infant Feeding Yes , [place] Education and Family Medical Leave or Disability [...] Supervision of high risk in third trimester O09. Trimester: third trimester Hx of one miscarriage [...] placed atthis visit. [place] appropriate handout given. Clinical Quality Measures Falls Risk Screening/Assistive Devices Have you fallen in the past year?: No 05/01/25 1422 s ESSIEM> Date _ Jacinta Rojas CNM Cosigner Signature: Date (if applicable) CC: ~ [facility]08-25-2025 Progress note Author Jacinta Rojas [facility] Services Note Date/Time May 01, 2025 2: 22pm [facility] [address], [address] [place] [address] OFFICE VISIT Date of Service: 05/01/25 MR#: [id number] Acct: [id number] Name: MICHELINE PERALES Rep #: [id number] : 2000 Provider: BRAN Rojas Age/Sex: 25/F [place] [facility] [place]: Signed Intake Vital Signs 04/20/25 09:21 04/20/25 13:17 05/01/25 14:02 Height 5 ft 1 in 5 ft 1 in 5 ft 1 in Weight: 180 lb 9 oz BMI 34.1 BP 116/78 Intake Visit Reasons: 32wk OB Therapeutic Radiologist Required: No Is patient in pain?: No Allergies No Known Allergies Allergy (Verified 05/01/25 14:01) Medications ?Medication ?Instructions ?Recorded ?Confirmed ?Type Lacto-B.anim,bifid-inulin 50 2 cap PO DAILY 11/04/24 0 05/01/25 History billion cell-50 mg capsule,delay release (Fortify Probiotic) magnesium 200 mg tablet 400 mg PO QDAY 11/04/24/01/29 History vitamin B complex 1 tab PO [...] 1 current occupational status: unemployed current occupation: [employer] pets and animals: No history of recent travel: No sexually active: Yes Smoking Status: Never smoker second hand exposure: No alcohol intake: never substance use type: does not use diet: other well-balanced diet: daily or most days caffeine: No eating out: rarely or never during the past year weight has: remained stable what type of physical activity do you participate in: none radha/mu-ism: None seatbelt use: always do you feel safe at home: Yes additional social history: [employer] History 3 Elective abortions [...] term 7lbs 3oz Male epi dural [facility] Subhash Delivery Date: Last Updated by: [...] and Symptoms of Preeclampsia, Feeding Yes , Education and Family Medical Leave or [...] Supervision of high risk in third trimester O09. 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 acute June 22, 2025 10:50am acute June 22, 2025 10:50am Supervision of high-risk acute June 22 10:50am Hx of one miscarriage acute Jun 3:36pm 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 acute June 22, 2025 3:36pm acute June 22, 2025 3:36pm Supervision of high-risk acute June 22 3:36pm [facility] Work Phone: 1(192) 118-594707-30-2025 Progress [facility]s [address], [address] [place] [address] OFFICE VISIT Date of Service: 04/05/25 MR#: [id number] Acct: [id number] Name: MICHELINE PERALES Rep #: [id number] : 2000 Provider: SANTIAGO Acosta Age/Sex: 24/F [place] [facility] [place]: Signed Intake Vital Signs 01/18/25 13:04 03/13/25 13:20 04/05/25 09:58 04/05/25 10:02 Height 5 ft 1 in 5 ft 1 in 5 ft 1 in 5 ft 1 in Weight: 174 lb 4 oz BMI 32.9 BP 104/70 Intake Visit Reasons: 28 wk ob/glucose Chief Complaint: 28 Week OB/Glucose Therapeutic Radiologist Required: No Is patient in pain?: No Allergies No Known Allergies Allergy (Verified 04/05/25 10:01) Medications ?Medication ?Instructions ?Recorded ?Confirmed ?Type Lacto-B.anim,bifid-inulin 50 2 cap PO DAILY 11/04/24 0 04/05/25 History billion cell-50 mg capsule,delay release (Fortify Probiotic) levothyroxine 37.5 mcg capsule 37.5 mcg PO QDAY 04/05/25 History magnesium 200 mg tablet 400 mg PO QDAY 11/04/24/ History vitamin B complex 1 tab PO [...] 1 current occupational status: unemployed current occupation: [employer] pets and animals: No history of recent travel: No sexually active: Yes Smoking Status: Never smoker second hand exposure: No alcohol intake: never substance use type: does not use diet: other well-balanced diet: daily or most days caffeine: No eating out: rarely or never during the past year weight has: remained stable what type of physical activity do you participate in: none radha/mu-ism: None seatbelt use: always do you feel safe at home: Yes additional social history: [employer] History 3 Elective abortions [...] Last Updated by: Christina Russell SROM HPI 28 wk ob/glucose Details: MICHELINE [...] and Symptoms of Preeclampsia, Feeding Yes , Education and Family Medical Leave or [...] care and follow up. 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 acute April 082024 1:59pm acute May 01 1:59pm Supervision of high-risk acute May 01 1:59pm Hx of one miscarriage acute May 9:46am 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 acute 2024 9:46am acute May 9:46am Supervision of high-risk acute May 18, 2025 9:46am Hx of one miscarriage acute May 9:22am 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 acute [facility] r 2024 9:22am acute May 9:22am Supervision of high-risk acute May 31, 2025 9:22am Hx of one miscarriage acute May 8:43am 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 acute May[facility] r 2024 8:43am acute May 8:43am Supervision of high-risk acute June 05, 2025 8:43am Hx of one miscarriage acute Jun 11:37am 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 acute June 14, 2025 11:37am acute June 14 11:37am Supervision of high-risk acute October 8th, 202 5 11:37am Hx of one miscarriage acute Jun 10:50am 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 acute June 22, 2025 10:50am acute June 22, 2025 10:50am Supervision of high-risk acute June 22 10:50am Hx of one miscarriage acute Jun 3:36pm 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 acute June 22, 2025 3:36pm acute June 22, 2025 3:36pm Supervision of high-risk acute June 22 3:36pm [facility] Work Phone: 1(360) 799-313707-07-2025 [facility] [address] [place] [address], [address] [place] [address] OFFICE VISIT Date of Service: 03/13/25 MR#: [id number] Acct: [id number] Name: MICHELINE PERALES Rep #: [id number] : 2000 Provider: BRAN Rojas Age/Sex: 24/F [place] [facility] [place]: Signed Intake Vital Signs 01/18/25 13:04 02/16/25 09:48 03/13/25 13:20 Height 5 ft 1 in 5 ft 1 in 5 ft 1 in Weight: 171 lb 4 oz BMI 32.3 BP 107/71 Intake Visit Reasons: 25 wk ob Chief Complaint: 25wk OB Therapeutic Radiologist Required: No Is patient in pain?: No Allergies No Known Allergies Allergy (Verified 03/13/25 13:22) Medications ?Medication ?Instructions ?Recorded ?Confirmed ?Type Lacto-B.anim,bifid-inulin 50 2 cap PO DAILY 11/04/24 0 03/13/25 History billion cell-50 mg capsule,delay release (Fortify Probiotic) levothyroxine 37.5 mcg capsule 37.5 mcg PO QDAY 03/13/25 History magnesium 200 mg tablet 400 mg PO QDAY 11/04/24 0703/31 History vitamin B complex 1 tab PO [...] 1 current occupational status: unemployed current occupation: [employer] pets and animals: No history of recent travel: No sexually active: Yes Smoking Status: Never smoker second hand exposure: No alcohol intake: never substance use type: does not use diet: other well-balanced diet: daily or most days caffeine: No eating out: rarely or never during the past year weight has: remained stable what type of physical activity do you participate in: none radha/mu-ism: None seatbelt use: always do you feel safe at home: Yes additional social history: [employer] History 3 Elective abortions [...] Last Updated by: Christina Russell SRADITHYA HPI 25 wk ob Details: MICHELINE PERALES [...] preference, Signs and Symptoms of Preeclampsia, Feeding No and [place] Education ROS Const Reports system reviewed and [...] [place] appropriate handout given. 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 [facility] 8:43am acute May 8:43am Supervision of high-risk acute June 05, 2025 8:43am [facility] Work Phone: 1(647) 925-889606-12-2025 Evaluation note* Diagnosis Onset Date Resolution Status [...] 8:43am 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 acute r 2024 8:43am acute May 8:43am Supervision of high-risk acute June 05, 2025 8:43am Hx of one miscarriage acute Jun 11:37am 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 acute June 14, 2025 11:37am acute June 14, 025 11:37am Supervision of high-risk acute June 14 11:37am [facility] Work Phone: 1(447) 465-217605-14-2025 Evaluation note* Diagnosis Onset Date Resolution Status [...] Supervision of high-risk acute April 20 9:14am [facility] Work Phone: 1([phone]) 341-301505-14-2025 Evaluation note* Diagnosis Onset Date Resolution Status [...] thyroiditis acute April 082024 1:59pm acute May 01 1:59pm Supervision of high-risk acute May 01 1:59pm [facility] Work Phone: 1(235) 592-467105-14-2025 Evaluation note* Diagnosis Onset Date Resolution Status [...] miscarriage acute Mar 1:15pm Hypothyroidism due to Queeine's thyroiditis acute March 1:15pm acute March 13, [...] of high-risk acute May 18, 2025 9:46am [facility] Work Phone: 1(203) 801-579704-17-2025 Evaluation note* Diagnosis Onset Date Resolution Status [...] of high-risk acute April 05, 2025 9:36am [facility] Work Phone: 1(186) 533-976204-17-2025 Evaluation note* Diagnosis Onset Date Resolution Status [...] to Queenie's thyroiditis acute March 9:36am acute Bailee 30th, 202 5 9:36am Supervision of high-risk acute April 05, 2025 9:36am Hx of one miscarriage acute Apr us2024 9:14am 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 Endocervical and/or squamous metaplasticcells (endocervical component)are present.[facility] INTER[facility]ACED A#[id number] Carmel Health SystemComment on above:Satisfactory for evaluation. Endocervical and/or squamous metaplasticcells (endocervical component)are present.11-25-2024 NotePap Smear Specimen AdequacyDetwiler Memorial Hospital 2024 11:59pmComment.Satisfactory for evaluation. Endocervical and/or squamous metaplasticcells (endocervical component)are present.[facility] INTER[facility]ACED A#[id number] Carmel Health SystemComment on above:Satisfactory for evaluation. Endocervical and/or squamous metaplasticcells (endocervical component)are present.11-25-2024 Evaluation note* Diagnosis Onset Date Resolution Status Admit Date Early stage of acute November 25, 2024 1:38pm Hx of one miscarriage acute Nov 1:38pm Hypothyroidism due to Hashim parveen's thyroiditis acute November 25, 2024 1:38pm acute November 25 1:38pm Supervision of high-risk acute November 25, 2024 1:38pm [facility] Work Phone: 1(843) 950-594703-21-2025 Evaluation note* Diagnosis Onset Date Resolution Status Admit Date Early stage of acute November 25, 2024 1:38pm Hx of one miscarriage acute Nov 1:38pm Hypothyroidism due to Hashim parveen's thyroiditis acute November 25, 2024 1:38pm acute November 25 1:38pm Supervision of high-risk acute November 25, 2024 1:38pm Early stage of acute December 22, 2024 10:00am Hx of one miscarriage acute Apr 2024 10:00am Hypothyroidism due to Hashim parveen's thyroiditis acute December 22, 2024 10:00am Infertility associated with anovulation acute December 22, 2024 10:00am acute December 22 10:00am Supervision of high-risk acute December 22, 2024 10:00am [facility] Work Phone: 1(775) 594-824803-21-2025 Evaluation note* Diagnosis Onset Date Resolution Status [...] high-risk acute January 18, 2025 1 2:45pm [facility] Work Phone: 1(440) 856-5476903310-13-8917 Evaluation note* Diagnosis Onset Date Resolution Status Admit Date Hx of one miscarriage acute Mar 2024 1:38pm 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 acute [...] of high-risk acute February 16, 2025 9:35am [facility] Work Phone: 1([phone]) [phone] Evaluation note* Diagnosis Onset Date Resolution Status [...] high-risk acute March 13, 2025 1 :15pm [facility] Work Phone: 1([phone]) 741-513602-26-2025 Radiology Diagnostic study note [facility] Imaging Services [address] [place] [address] Transvaginal w/Preg US MR#: [id number] Acct: [id number] Name: MICHELINE PERALES Rep #: [id number] : 2000 F 24 From: Artemio Restrepo MD PCP: LUIS F Leiva Status: REG C LI Study:Transvaginal w/Preg US Date of Exam: 11/02/24 Exam# [id number] Ordering Dr: Rocio Stoner MD PROCEDURE: TRANSVAGINAL W/PREG US REASON FOR EXAM: Dating. COMPARISON: None. FINDINGS The uterus measures 9.6 x 6.9 x 4.8 cm. No fibroids. A gestational sac is present which dates 6 weeks and 2 days. The yolk sac is visualized. An embryo is visualized with a heart rate of 108. [place]- rump length measures 6weeks and 2 days. [...] Single live intrauterine as above. Reading Location: [id number] CC: Dr. Rocio Persaud MD; LUIS F Leiva ~ Telecommunications Engineer: Signed [facility] System[facility]* Diagnosis Onset Date Resolution Status Hypothyroidism [...] affecting acute acute Supervision of normal acute [facility] Work Phone: Evaluation note* Diagnosis Onset Date [...] affecting acute resolved Supervision of normal resolved [facility] Work Phone: Evaluation note* Diagnosis Onset Date Resolution Status Hypothyroidism affecting resolved resolved Supervision of normal resolved Hypothyroidism affecting resolved resolved Supervision of normal resolved Hypothyroidism affecting resolved resolved Supervision of normal resolved Hypothyroidism affecting resolved resolved Supervision of normal resolved Vaginal delivery acute Hypothyroidism affecting resolved resolved Supervision of normal resolved Vaginal delivery acute [facility] Work Phone: Evaluation note* Diagnosis Onset Date Resolution Status Hypothyroidism affecting resolved resolved Supervision of normal resolved Hypothyroidism affecting resolved resolved Supervision of normal resolved Vaginal delivery acute Hypothyroidism affecting resolved resolved Supervision of normal resolved Vaginal delivery acute Vaginal pain acute [facility] Work Phone: Evaluation note* Diagnosis Onset Date Resolution Status Missed resolved Obesity affecting resolved resolved Supervision of high risk , antepartum resolved Thyroid disorder resolved Status post dilatation and curettage acute Missed resolved Postoperative examination no neactive [facility] Work Phone: Evaluation note* Diagnosis Onset Date Resolution Status 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 F/U in office in 6 weeks.[facility] Work Phone: Progress note Author Jacinta Rojas [facility] Note Date/Time March 13, 2025 1:40p m [facility] [address], [address] [place] [address] OFFICE VISIT Date of Service: 03/13/25 MR#: [id number] Acct: [id number] Name: MICHELINE PERALES Rep #: [id number] : 2000 Provider: BRAN Rojas Age/Sex: 24/F [place] [facility]: Signed Intake Vital Signs 01/18/25 13:04 02/16/25 09:48 03/13/25 13:20 Height 5 ft 1 in 5 ft 1 in 5 ft 1 in Weight: 171 lb 4 oz BMI 32.3 BP 107/71 Intake Visit Reasons: 25 wk ob Chief Complaint: 25wk OB Therapeutic Radiologist Required: No Is patient in pain?: No Allergies No Known Allergies Allergy (Verified 03/13/25 13:22) Medications ?Medication ?Instructions ?Recorded ?Confirmed ?Type Lacto-B.anim,bifid-inulin 50 2 cap PO DAILY 11/04/24 0 03/13/25 History billion cell-50 mg capsule,delay release (Fortify Probiotic) levothyroxine 37.5 mcg capsule 37.5 mcg PO QDAY 03/13/25 History magnesium 200 mg tablet 400 mg PO QDAY 11/04/24 0703/31 History vitamin B complex 1 tab PO [...] 1 current occupational status: unemployed current occupation: [employer] pets and animals: No history of recent travel: No sexually active: Yes Smoking Status: Never smoker second hand exposure: No alcohol intake: never substance use type: does not use diet: other well-balanced diet: daily or most days caffeine: No eating out: rarely or never during the past year weight has: remained stable what type of physical activity do you participate in: none radha/mu-ism: None seatbelt use: always do you feel safe at home: Yes additional social history: [employer] History 3 Elective abortions [...] 12/17/21 Last Updated by: Christina KING HPI 25 wk ob Details: MICHELINE PERALES [...] Supervision of high risk in second trimester O Trimester: second trimester Hx of one miscarriage Z87.59 25 weeks gestation of Z3A.25 Weeks of gestation: 25 weeks 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 E03.8; E06.3 Assessment and Plan Assessment and Plan (1) Supervision of high-risk : Status: Acute Qualifiers: Trimester: second trimester Qualified Code(s): O09.92 - Supervision of high risk , unspecified, second trimester Comment: PRR, , ADONIS 06/26/25, PC Ormario, Subhash (2) Hx of one miscarriage: Status: [...] Cosigner Signature: Date (if applicable) CC: ~ [facility] Work Phone: Progress note Author Mariana Acosta [facility] Note Date/Time April 05, 2025 10:1 6am [facility] [address] [place] [address], [address] [place] [address] OFFICE VISIT Date of Service: 04/05/25 MR#: [id number] Acct: [id number] Name: MICHELINE PERALES Huseyin Rep #: [id number] : 2000 Provider: SANTIAGO Acosta Age/Sex: 24/F [place] [facility]: Signed Intake Vital Signs 01/18/25 13:04 03/13/25 13:20 04/05/25 09:58 04/05/25 10:02 Height 5 ft 1 in 5 ft 1 in 5 ft 1 in 5 ft 1 in Weight: 174 lb 4 oz BMI 32.9 BP 104/70 Intake Visit Reasons: 28 wk ob/glucose Chief Complaint: 28 Week OB/Glucose Therapeutic Radiologist Required: No Is patient in pain?: No Allergies No Known Allergies Allergy (Verified 04/05/25 10:01) Medications ?Medication ?Instructions ?Recorded ?Confirmed ?Type Lacto-B.anim,bifid-inulin 50 2 cap PO DAILY 11/04/24 0 04/05/25 History billion cell-50 mg capsule,delay release (Fortify Probiotic) levothyroxine 37.5 mcg capsule 37.5 mcg PO QDAY 04/05/25 History magnesium 200 mg tablet 400 mg PO QDAY 11/04/2403/09 History vitamin B complex 1 tab PO [...] 1 current occupational status: unemployed current occupation: [employer] pets and animals: No history of recent travel: No sexually active: Yes Smoking Status: Never smoker second hand exposure: No alcohol intake: never substance use type: does not use diet: other well-balanced diet: daily or most days caffeine: No eating out: rarely or never during the past year weight has: remained stable what type of physical activity do you participate in: none radha/mu-ism: None seatbelt use: always do you feel safe at home: Yes additional social history: [employer] History 3 Elective abortions [...] 3oz Male epi dural [facility] Delivery Date: Last Updated by: Eileen Harrington [...] and Symptoms of Preeclampsia, Feeding Yes , [place] Education and Family Medical Leave or Disability [...] 1016 <Electronically signed by Mariana mandujano NP [employer]> Date _ Mariana Acosta NP [employer] Cosigner Signature: Date (if applicable) CC: ~ [facility] Work Phone: Progress note Author Mariana Acosta [facility] Note Date/Time May 18, 2025 10:05am [facility] [address] [place] [address], [address] [place] [address] OFFICE VISIT Date of Service: 05/18/25 MR#: [id number] Acct: [id number] Name: MICHELINE PERALES Rep #: [id number] : 2000 Provider: SANTIAGO Acosta Age/Sex: 25/F [place] [facility] Status: Signed Intake Vital Signs 04/20/25 09:21 05/01/25 14:02 05/18/25 09:52 05/18/25 09:56 Height 5 ft 1 in 5 ft 1 in 5 ft 1 in 5 ft 1 in Weight: 185 lb 1 oz BMI 34.9 BP 106/67 Intake Visit Reasons: 34 wk ob Chief Complaint: 34 Week OB Therapeutic Radiologist Required: No Is patient in pain?: No [...] 1 current occupational status: unemployed current occupation: [employer] pets and animals: No history of recent travel: No sexually active: Yes Smoking Status: Never smoker second hand exposure: No alcohol intake: never substance use type: does not use diet: other well-balanced diet: daily or most days caffeine: No eating out: rarely or never during the past year weight has: remained stable what type of physical activity do you participate in: none radha/mu-ism: None seatbelt use: always do you feel safe at home: Yes additional social history: [employer] History 3 Elective abortions [...] Last Updated by: Christina Russell SRADITHYA HPI 34 wk ob Details: MICHELINE PERALES [...] Symptoms of Preeclampsia, Infant Feeding No , [place] Education and Family Medical Leave or Disability [...] 05/18/25 1005 <Electronically signed by Mariana mandujano NP [employer]> Date _ Mariana Acosta NP [employer] Cosigner Signature: Date (if applicable) CC: ~ [facility] Work Phone: Progress note Author Rocio Persaud [facility] Note Date/Time May 31, 2025 9:39am [facility] [address], [address] [place] [address] OFFICE VISIT Date of Service: 05/31/25 MR#: [id number] Acct: [id number] Name: MICHELINE PERALES Rep #: [id number] : 2000 Provider: Dr. Joshua Persaud MD Age/Sex: 25/F [place] [facility]: Signed Intake Vital Signs 04/20/25 09:21 05/18/25 09:56 05/31/25 09:25 05/31/25 09:27 Height 5 ft 1 in 5 ft 1 in 5 ft 1 in 5 ft 1 in Weight: 188 lb 3 oz BMI 35.5 BP 130/77 H Intake Visit Reasons: 36 wk ob Chief Complaint: 36wk OB Therapeutic Radiologist Required: No Is patient in pain?: No [...] 1 current occupational status: unemployed current occupation: [employer] pets and animals: No history of recent travel: No sexually active: Yes Smoking Status: Never smoker second hand exposure: No alcohol intake: never substance use type: does not use diet: other well-balanced diet: daily or most days caffeine: No eating out: rarely or never during the past year weight has: remained stable what type of physical activity do you participate in: none radha/mu-ism: None seatbelt use: always do you feel safe at home: Yes additional social history: [employer] History 3 Elective abortions [...] preference, Signs and Symptoms of Preeclampsia, Feeding No , [place] Education and Family Medical Leave or Disability [...] Cosigner Signature: Date (if applicable) CC: ~ [facility] Work Phone: Progress note Author Rocio Persaud [facility] Note Date/Time June 05, 2025 9:18am [facility] [address], [address] [place] [address] OFFICE VISIT Date of Service: 06/05/25 MR#: [id number] Acct: [id number] Name: ANGELLA,MICHELINE R Rep #: [id number] : 2000 Provider: Dr. Joshua Persaud MD Age/Sex: 25/F [place] [facility]: Signed Intake Vital Signs 05/18/25 09:56 05/31/25 09:27 06/05/25 08:45 06/05/25 08:46 Height 5 ft 1 in 5 ft 1 in 5 ft 1 in 5 ft 1 in Weight: 189 lb BMI 35.6 BP 106/73 Intake Visit Reasons: 37 WK OB Therapeutic Radiologist Required: No Is patient in pain?: No [...] 1 current occupational status: unemployed current occupation: [employer] pets and animals: No history of recent travel: No sexually active: Yes Smoking Status: Never smoker second hand exposure: No alcohol intake: never substance use type: does not use diet: other well-balanced diet: daily or most days caffeine: No eating out: rarely or never during the past year weight has: remained stable what type of physical activity do you participate in: none radha/mu-ism: None seatbelt use: always do you feel safe at home: Yes additional social history: [employer] History 3 Elective abortions Hx Para 1 Spontaneous abortions 1 Hx # Term Pregnancies Ectopic pregnancies Hx # Pregnancies Multiple births # of living children 1 Past Pregnancies Del. Date Name GA/Weeks Outcome Route Bth Weight Gen Labor Lgth Anesthesia Del Jaymeatn Provider FOB Unknown December 2022 spontaneous 12/17/21 Romario 39 live - full term 7lbs 3oz Male epi dural [facility] Sub[facility] Delivery Date: Last Updated by: Eileen Harrington D&C SM Delivery Date: 12/17/21 Last Updated by: Christina Russell SROM HPI 37 WK OB Details: MICHELINE PERALES [...] you fallen in the past year?: No 06/05/25918 <Electronically signed by Rocio comer MD> Date _ Rocio Persaud MD Cosigner Signature: Date (if applicable) CC: ~ [facility] Work Phone: Progress note Author Jacinta Rojas [facility] Note Date/Time June 22, 2025 1 1:09am [facility] [address], [address] [place] [address] OFFICE VISIT Date of Service: 06/22/25 MR#: [id number] Acct: [id number] Name: MICHELINE PERALES Huseyin Rep #: [id number] : 2000 Provider: BRAN Rojas Age/Sex: 25/F [place] [facility] Status: Signed Intake Vital Signs 05/18/25 09:56 06/14/25 11:43 06/22/25 10:52 Height 5 ft 1 in 5 ft 1 in 5 ft 1 in Weight: 192 lb 6 oz BMI 36.3 BP 118/67 Intake Visit Reasons: 39 WK OB Chief Complaint: 39wk OB Therapeutic Radiologist Required: No Is patient in pain?: No Allergies No Known Allergies Allergy (Verified 06/22/25 10:51) Medications ?Medication ?Instructions ?Recorded ?Confirmed ?Type Lacto-B.anim,bifid-inulin 50 2 cap PO DAILY 11/04/24 1 History billion cell-50 mg capsule,delay release (Fortify Probiotic) magnesium 200 mg tablet 400 mg PO QDAY 11/04/2406/07 History vitamin B complex 1 tab PO QDAY 11/04/2406/22 History ferrous sulfate 27 mg iron tablet 27 mg PO QDAY 06/22/25 History levothyroxine 75 mcg capsule 75 mcg PO QDAY #30 caps 0 04/20/25 06/22/25 Rx Last Menstrual Period: 04/30/24 : No [...] 1 current occupational status: unemployed current occupation: [employer] pets and animals: No history of recent travel: No sexually active: Yes Smoking Status: Never smoker second hand exposure: No alcohol intake: never substance use type: does not use diet: other well-balanced diet: daily or most days caffeine: No eating out: rarely or never during the past year weight has: remained stable what type of physical activity do you participate in: none radha/mu-ism: None seatbelt use: always do you feel safe at home: Yes additional social history: [employer] History 3 Elective abortions Hx Para 1 Spontaneous abortions 1 Hx # Term Pregnancies Ectopic pregnancies Hx # Pregnancies Multiple births # of living children 1 Past Pregnancies Del. Date Name GA/Weeks Outcome Route B[facility] Unknown December 2022 spontaneous 12/17/21 Romario 39 live - full term 7lbs 3oz Male epi dural [facility] Delivery Date: Last Updated by: Eileen Harrington D&C SM Delivery Date: 12/17/21 Last Updated by: Christina Russell SROM HPI 39 WK OB Details: MICHELINE PERALES is a 25 year old who presents for routine OB visit. OB Visit ADONIS Calculator Estimated Delivery Date Method Current WG Current Estimate 06/26/25 Ultrasound #1 39w 3d Expected Delivery Route/Plan Labor Preferences- CB/BF [...] 9w 4d 159 lb 4 oz 111/76 -?-?-?-?-?-?-?-?-?-?-?--?- 150 -?-?-?-?-?-?-?-?-?-?-?-?- SM- measuring co ns with [...] lof go od fm no regualr ctx 06/14/25 -?-?-?-?-?-?-?-?-?-?-?-?- 38w 2d 190 lb 7 oz 105/68 Nega tive -?-?-?-?-?-?-?-?-?-?-?-?- Negative 135 38 Cephalic 3 -?-?-?-?-?-?-?-?-?-?-?-?- SM- no vb lof go od fm no reuglar ctx 06/22/25 -?-?-?-?-?-?-?-?-?-?-?-?- 39w 3d 192 lb 6 oz 118/67 Nega tive -?-?-?-?-?-?-?-?--?-?-?-?- Negative 130 40 Cephalic 4 -?-?-?-?-?-?-?-?-?-?-?-?- 70 -2 KW- no vb/ lof. feeling cramping and having loose stools. good fm. 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 declined NIPT & Carrier testing. , nl [...] you fallen in the past year?: No 06/22/25 1102 <Electronically signed by Jacinta mandujano CNM> Date _ Jacinta Rojas CNM Cosigner Signature: Date (if applicable) CC: ~ [facility] Work Phone: Reason for referral (narrative)No reason for referral information availableWVeterans Health Administration Work Phone: Chief Complaint and Reason for [...] delivery Vaginal pain Chief Complaint NOB LMP 1/12 SUCTION D&C [...] 20, 2025 9: 14am [facility] Hx of one miscarriage May 01, 2025 1:59pm 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 May 01, 2025 1:59pm May 01, 2025 1: 59pm [facility] 1:59pm Hx of one miscarriage May 18 9:46am 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 May 18, 2025 9:46am May 18, 2025 9:46am Supervision of high-risk [facility] 2024 9:46am Hx of one miscarriage May 31 9:22am 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 May 31, 2025 9:22am May 31, 2025 9:22am Supervision of high-risk [facility] 2024 9:22am Hx of one miscarriage June 05 8:43am 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 June 05, 2025 8:43am June 05, 2025 8:43am Supervision of high-risk [facility] 2024 8:43am Chief Complaint Admit Date [...] May 18, 2025 9:46am Supervision of high-risk [facility] 2024 9:46am Hx of one miscarriage May 31 9:22am 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 May 31, 2025 9:22am May 31, 2025 9:22am Supervision of high-risk [facility] 2024 9:22am Hx of one miscarriage June 05 8:43am 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 June 05, 2025 8:43am June 05, 2025 8:43am Supervision of high-risk [facility] 2024 8:43am Hx of one miscarriage June 14, 2025 11:37am 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 June 14, 2025 11:37am June 14, 2025 11 :37am Supervision of high-risk Octob 2024 11:37am Chief Complaint Admit Date 25 wk ob March 13, 2025 1:15p m 28 wk ob/glucose April 05, 2025 9:36 am 30 wk ob April 20, 2025 9: 14am 32wk OB May 01, 2025 1: 59pm 34 wk ob May 18, 2025 9:46am 36 wk ob May 31, 2025 9:22am 37 WK OB June 05, 2025 8:43am 38 WK OB June 14, 2025 11 :37am 39 WK OB June 22, 2025 1 0:50am VAGINAL DELIVERY June 22, 2025 3 :36pm LABOR AND DELIVERY June 22, 2025 3 :54pm VAGINAL DELIVERY June 23, 2025 1 :02pm VAGINAL DELIVERY June 24, 2025 9 :25am Reason for Visit Admit Date Hx of one miscarriage March 13, 2025 [...] 18, 2025 9:46am Supervision of high-risk Septe mber 2024 9:46am Hx of one miscarriage May 31 9:22am 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 May 31, 2025 9:22am May 31, 2025 9:22am Supervision of high-risk [facility] 2024 9:22am Hx of one miscarriage June 05 8:43am 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 June 05, 2025 8:43am June 05, 2025 8:43am Supervision of high-risk [facility] 2024 8:43am Hx of one miscarriage June 14, 2025 11:37am 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 June 14, 2025 11:37am June 14, 2025 11 :37am Supervision of high-risk [facility] 20[facility] 11:37am Hx of one miscarriage June 22, 2025 10:50am 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 June 22, 2025 10:50am June 22, 2025 1 0:50am Supervision of high-risk [facility] 2024 10:50am Hx of one miscarriage June 22, 2025 3:36pm 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 June 22, 2025 3:36pm June 22, 2025 3 :36pm Supervision of high-risk [facility] 2024 3:36pm Chief Complaint Admit Date 28 wk ob/glucose April 05, 2025 9:36 am 30 wk ob April 20, 2025 9: 14am 32wk OB May 01, 2025 1: 59pm 34 wk ob May 18, 2025 9:46am 36 wk ob May 31, 2025 9:22am 37 WK OB June 05, 2025 8:43am 38 WK OB June 14, 2025 11 :37am 39 WK OB June 22, 2025 1 0:50am VAGINAL DELIVERY June 22, 2025 3 :36pm LABOR AND DELIVERY June 22, 2025 3 :54pm VAGINAL DELIVERY June 23, 2025 1 :02pm VAGINAL DELIVERY June 24, 2025 9 :25am Reason for Visit Admit Date Hx of one miscarriage April 05, 2025 [...] May 18, 2025 9:46am Supervision of high-risk [facility] 2024 9:46am Hx of one miscarriage May 31 9:22am 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 May 31, 2025 9:22am May 31, 2025 9:22am Supervision of high-risk [facility] 2024 9:22am Hx of one miscarriage June 05 8:43am 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 June 05, 2025 8:43am June 05, 2025 8:43am Supervision of high-risk [facility] 2024 8:43am Hx of one miscarriage June 14, 2025 11:37am 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 June 14, 2025 11:37am June 14, 2025 11 :37am Supervision of high-risk [facility] 2024 11:37am Hx of one miscarriage June 22, 2025 10:50am 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 June 22, 2025 10:50am June 22, 2025 1 0:50am Supervision of high-risk [facility] 2024 10:50am Hx of one miscarriage June 22, 2025 3:36pm 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 June 22, 2025 3:36pm June 22, 2025 3 :36pm Supervision of high-risk [facility] 2024 3:36pm Family History No Family History Records Found [...] No March 01, 2019 7:44pm Power of Toy Department Manager No March 01 7:44pm Advance Directive Response Recorded Date/ Time Living Will No December 17, 2021 1:58pm Power of Toy Department Manager No December 17 1:58pm Advance Directive Response Recorded Date/ Time Living Will No December 05, 2022 9:28am Power of Toy Department Manager No December 05 9:28am Advance Directive Response Recorded Date/ Time Living Will No December 05, 2022 8:28am Power of Toy Department Manager No December 05 8:28am Advance Directive Response Recorded Date/ Time Do you have a Healthcare Power of Toy Department Manager? No June 22, 2025 4:22pm Advance Directive Response Recorded Date/ Time Do you have a Healthcare Power of Toy Department Manager? No June 22, 2025 3:22pm Summary Purpose Additional Source Comments Goals (unrecognized [...] 2025 End: January 18, 2025 Mariana Acosta PAID INTERNSHIP, PAID INTERNSHIP-C Attending Provider Active Start: January 18, 2025 End: January 18, 2025 Team Status: Inactive Member Role Status Dates LUIS F Leiva Primary Care Provider Active Start: February 16, 2025 End: February 16, 2025 Abdirizak Levy PA Referring Provider Active Start: February 16, 2025 End: February 16, 2025 Mariana Acosta PAID INTERNSHIP, PAID INTERNSHIP-C Attending Provider Active Start: February 16, 2025 End: February 16, 2025 Team Status: Active Member Role/Relationship Status Dates LUIS F Leiva Primary Care Provider Active Team Status: Inactive Member Role/Relationship Status Dates Abdirizak Levy PA Primary Care Provider Active Start: November 25, [...] Team Status: Inactive Member Role/Relationship Status Dates Abdirizak Levy , PA Primary Care Provider Active Start: January 18, 2025 End: January 18, 2025 Abdirizak Levy PA Referring Provider Active Start: January 18, 2025 End: January 18, 2025 Mariana Acosta PAID INTERNSHIP, PAID INTERNSHIP-C Attending Provider Active Start: January 18, 2025 End: January 18, 2025 Team Status: Inactive Member Role/Relationship Status Dates Abdirizak Levy PA Primary Care Provider Active Start: February 16, 2025 End: February 16, 2025 Abdirizak Levy , PA Referring Provider Active Start: February 16, 2025 End: February 16, 2025 Mariana Acosta PAID INTERNSHIP, PAID INTERNSHIP-C Attending Provider Active Start: February 16, 2025 End: February 16, 2025 Team Status: Inactive Member Role/Relationship Status Dates Abdirizak Lvey PA Primary Care Provider Active Start: March 13, 2025 End: March 13, 2025 Abdirizak Richardsetler , PA Referring Provider Active Start: March 13, 2025 End: March 13, 2025 Jacinta Rojas CNM Attending Provider Active S tart: March 13, 2025 End: March 13, 2025 Team Status: Inactive Member Role/Relationship Status Dates Abdirizak Levy PA Primary Care Provider Active Start: December 22, 2024 End: December 22, 2024 Abdirizak Levy , PA Referring Provider Active Start: December 22, 2024 End: December 22, 2024 Dr. Bambi Callaway , Attending Provider Activ e Start: December 22, 2024 End: December 22, 2024 Team Status: Inactive Member Role/Relationship Status Dates Abdirizak Levy PA Primary Care Provider Active Start: December 22, [...] 2025 End: January 18, 2025 Mariana Acosta PAID INTERNSHIP, PAID INTERNSHIP-C Attending Provider Active Start: January 18, 2025 End: January 18, 2025 Team Status: Inactive Member Role/Relationship Status Dates LUIS F Leiva Primary Care Provider Active Start: February 16, 2025 End: February 16, 2025 LUIS F Leiva Referring Provider Active Start: February 16, 2025 End: February 16, 2025 Mariana Acosta PAID INTERNSHIP, PAID INTERNSHIP-C Attending Provider Active Start: February 16, 2025 [...] 2025 End: April 05, 2025 Mariana Acosta PAID INTERNSHIP, PAID INTERNSHIP-C Attending Provider Active Start: April 05, 2025 [...] Active Start: April 20, 2025 Mariana Acosta PAID INTERNSHIP, PAID INTERNSHIP-C Attending Provider Active Start: April 20, 2025 Team Status: Inactive Member Role/Relationship Status Dates LUIS F Leiva Primary Care Provider Active Start: January 18, 2025 End: January 18, 2025 LUIS F Leiva Referring Provider Active Start: January 18, 2025 End: January 18, 2025 Mariana Acosta PAID INTERNSHIP, PAID INTERNSHIP-C Attending Provider Active Start: January 18, 2025 End: January 18, 2025 Team Status: Inactive Member Role/Relationship Status Dates LUIS F Leiva Primary Care Provider Active Start: February 16, 2025 End: February 16, 2025 LUIS F Leiva Referring Provider Active Start: February 16, 2025 End: February 16, 2025 Mariana Acosta PAID INTERNSHIP, PAID INTERNSHIP-C Attending Provider Active Start: February 16, 2025 [...] 2025 End: April 05, 2025 Mariana Acosta PAID INTERNSHIP, PAID INTERNSHIP-C Attending Provider Active Start: April 05, 2025 [...] 2025 End: April 20, 2025 Mariana Acosta PAID INTERNSHIP, PAID INTERNSHIP-C Attending Provider Active Start: April 20, 2025 [...] 2025 End: May 18, 2025 Mariana Acosta PAID INTERNSHIP, PAID INTERNSHIP-C Attending Provider Active Start: May 18, 2025 End: May 18, 2025 Team Status: Active Member Role/Relationship Status Dates LUIS F Leiva Primary care physician Active Team Status: Inactive Member Role/Relationship Status Dates LUIS F Leiva Primary care physician Active Start: February 16, 2025 End: February 16, 2025 LUIS F Leiva Referring Provider Active Start: February 16, 2025 End: February 16, 2025 Mariana Acosta NP PAID INTERNSHIP-C Attending physician Active Start: February 16, 2025 [...] 2025 End: April 05, 2025 Mariana Acosta NP PAID INTERNSHIP-C Attending physician Active Start: April 05, 2025 [...] End: April 20, 2025 Mariana Acosta NP PAID INTERNSHIP-C Attending physician Active Start: April 20, 2025 [...] 2025 End: May 18, 2025 Mariana Acosta PAID INTERNSHIP, PAID INTERNSHIP-C Attending physician Active Start: May 18, 2025 [...] June 14, 2025 End: June 14, 2025 Team Status: Inactive Member Role/Relationship Status [...] 2025 End: April 05, 2025 Mariana Acosta NP PAID INTERNSHIP-C Attending physician Active Start: April 05, 2025 [...] End: April 20, 2025 Mariana Acosta NP PAID INTERNSHIP-C Attending physician Active Start: April 20, 2025 [...] 2025 End: May 18, 2025 Mariana Acosta NP, PAID INTERNSHIP-C Attending physician Active Start: May 18, 2025 [...] June 14, 2025 End: June 14, 2025 Team Status: Inactive Member Role/Relationship Status Dates LUIS F Leiva Primary care physician Active Start: June 22, 2025 End: June 22, 2025 LUIS F Leiva Referring Provider Active Start: June 22, 2025 End: June 22, 2025 Jacinta Rojas CNM Attending physician Active Start: June 22, 2025 End: June 22, 2025 Team Status: Inactive Member Role/Relationship Status Dates LUIS F Leiva Primary care physician Active Start: June 22, 2025 End: June 24, 2025 Dr. Bambi Callaway , DO Admitting physician Acti ve Start: June 22, 2025 End: June 24, 2025 Dr. Bambi Callaway , DO Attending physician Acti ve Start: June 22, 2025 End: June 24, 2025 Dr. Bambi Callaway , DO Referring Provider Activ e Start: June 22, 2025 End: June 24, 2025 Team Status: Active Member Role/Relationship Status Dates LUIS F Leiva Primary care physician Active Start: June 22, 2025 Dr. Bambi Callaway , DO Admitting physician Acti ve Start: June 22, 2025 Dr. Bambi Callaway , DO Attending physician Acti ve Start: June 22, 2025 Dr. Bambi Callaway , DO Referring Provider Activ e Start: June 22, 2025 Dr. Bambi Callaway , DO Nurse Practitioner Activ e Start: June 22, 2025 Team Status: Active Member Role/Relationship Status Dates LUIS F Leiva Primary care physician Active Start: June 23, 2025 Dr. Bambi Callaway , DO Admitting physician Acti ve Start: June 23, 2025 Dr. Bambi Callaway , DO Referring Provider Activ e Start: June 23, 2025 Dr. Bambi Callaway , DO Nurse Practitioner Activ e Start: June 23, 2025 Dr. Rocio Persaud MD Attending physician Active Start: June 23, 2025 Team Status: Active Member Role/Relationship Status Dates LUIS F Leiva Primary care physician Active Start: June 24, 2025 Dr. Bambi Clalaway , DO Admitting physician Acti ve Start: June 24, 2025 Dr. Bambi Callaway , DO Referring Provider Activ e Start: June 24, 2025 Dr. Bambi Callaway , DO Nurse Practitioner Activ e Start: June 24, 2025 Irma Gandara CNM Attending physician Active Start: June 24, 2025 Team Status: Inactive Member Role/Relationship Status Dates LUIS F Leiva Primary care physician Active Start: April 05, 2025 End: April 05, 2025 LUIS F Leiva Referring Provider Active Start: April 05, 2025 End: April 05, 2025 Mariana Acosta NP, PAID INTERNSHIP-C Attending physician Active Start: April 05, 2025 [...] 2025 End: April 20, 2025 Mariana Acosta NP, PAID INTERNSHIP-C Attending physician Active Start: April 20, 2025 [...] 2025 End: May 18, 2025 Mariana Acosta PAID INTERNSHIP, PAID INTERNSHIP-C Attending physician Active Start: May 18, 2025 [...] 05, 2025 End: June 05, 2025 Dr. Roico Persaud MD Attending physician Active Start: June 05, 2025 End: June 05, 2025 Team Status: Inactive Member Role/Relationship Status Dates LUIS F Leiva Primary care physician Active Start: June 14, 2025 End: June 14, 2025 Abdirizak Levy PA Referring Provider Active Start: June 14, 2025 End: June 14, 2025 Dr. Rocio Persaud MD Attending physician Active Start: June 14, 2025 End: June 14, 2025 Team Status: Inactive Member Role/Relationship Status Dates LUIS F Leiva Primary care physician Active Start: June 22, 2025 End: June 22, 2025 Abdirizak Levy PA Referring Provider Active Start: June 22, 2025 End: June 22, 2025 Jacinta Rojas CNM Attending physician Active Start: June 22, 2025 End: June 22, 2025 Team Status: Inactive Member Role/Relationship Status Dates LUIS F Leiva Primary care physician Active Start: June 22, 2025 End: June 24, 2025 Dr. Bambi Callaway , DO Admitting physician Acti ve Start: June 22, 2025 End: June 24, 2025 Dr. Bambi Callaway , DO Attending physician Acti ve Start: June 22, 2025 End: June 24, 2025 Dr. Bambi Callaway , DO Referring Provider Activ e Start: June 22, 2025 End: June 24, 2025 Team Status: Active Member Role/Relationship Status Dates LUIS F Leiva Primary care physician Active Start: June 22, 2025 Dr. Bambi Callaway , DO Admitting physician Acti ve Start: June 22, 2025 Dr. Bambi Callaway , DO Attending physician Acti ve Start: June 22, 2025 Dr. Bambi Callaway , DO Referring Provider Activ e Start: June 22, 2025 Dr. Bambi Callaway , DO Nurse Practitioner Activ e Start: June 22, 2025 Team Status: Active Member Role/Relationship Status Dates LUIS F Leiva Primary care physician Active Start: June 23, 2025 Dr. Bambi Callaway , DO Admitting physician Acti ve Start: June 23, 2025 Dr. Bambi Callaway , DO Referring Provider Activ e Start: June 23, 2025 Dr. Bambi Callaway , DO Nurse Practitioner Activ e Start: June 23, 2025 Dr. Rocio Persaud MD Attending physician Active Start: June 23, 2025 Team Status: Active Member Role/Relationship Status Dates LUIS F Leiva Primary care physician Active Start: June 24, 2025 Dr. Bambi Callaway , DO Admitting physician Acti ve Start: June 24, 2025 Dr. Bambi Callaway , DO Referring Provider Activ e Start: June 24, 2025 Dr. Bambi Callaway , DO Nurse Practitioner Activ e Start: June 24, 2025 Irma Gandara CNM Attending physician Active Start: June 24, 2025 INFORMATION SOURCE (unrecogn ized section and content) DATE CREATED AUTHOR 02/12/2024 [facility] DATE CREATED AUTHOR AUTHOR'S ORGANIZ ATION 11/08/2024 [facility] DATE CREATED AUTHOR AUTHOR'S ORGANIZ ATION 02/18/2025 [facility] DATE CREATED AUTHOR AUTHOR'S ORGANIZ ATION 07/18/2025 [facility] FOR RECORDS PERTAINING TO PATIENTS WHO ARE [...] BE BASED ON THE PRIMARY CLINICAL RECORDS. [facility] [employer] provides no warranty or guarantee of the accuracy or completeness of information in this document.
== END | disposition home or self-care (01) ==
LOC: LABSPEC 16:33
PROVIDERS: PCP Physician Assistant; Visit Provider Obstetrics & Gynecology
DX: N89.8 Other specified noninflammatory disorders of vagina (principal)
CPT/HCPCS: 87070; 87205